=== PATIENT | female | born 1960 | race Caucasian/White ===

== ENCOUNTER 2019-12-01 11:59 | Outpatient (CLI) | payer MEDICARE, MEDICAID, SELFPAY ==
--- NOTE | 2019-12-04 01:00 | WPDPFTINT ---
PFT Interpretation PFT Interpretation: DOS: 12/01/2019 REQUESTING: Dr Anthony Burks REASON FOR TESTING: Dyspnea on exertion PULMONARY FUNCTION TESTS The patient gave excellent effort however was not able to maintain an exhalation of 6 seconds on 3 attempts, making the results non-reproducible. Lung volumes were not obtainable. Spirometry: FEV1 is 74%, mildly decreased. FVC is 65%, mildly decreased. FEV1% is normal. No significant change after bronchodilator. Lung volumes: Not obtainable. Diffusion: DLCO is mildly decreased at 65%. Flow volume loop: Not reproducible. IMPRESSION: Results limited by inability of the patient to perform maneuvers reliably. Decrease in FVC with normal FEV1% may represent a restrictive impairment, however lung volumes were not obtainable despite good effort on the patient's part. Ashley Og MD
== END 2019-12-01 12:00 | disposition home or self-care (01) ==
PROVIDERS: PCP Internal Medicine; Visit Provider Internal Medicine
DX: J06.9 Acute upper respiratory infection, unspecified (principal); R06.00 Dyspnea, unspecified
CPT/HCPCS: 94060; 94729

== ENCOUNTER 2022-03-25 15:35 | Outpatient (CLI) | payer MEDICARE, MEDICAID, SELFPAY ==
[2022-03-25 15:56] LABS: Appearance Urine Clear (Clear); Bilirubin Urine Negative (Negative); Blood Urine Negative (Negative); Color Urine Yellow (Yellow); Glucose Urine UA 2+ mg/dL (Negative); Ketones Urine Negative (Negative); Leukocyte Esterase Ur Trace LEU/UL (Negative); Nitrate Urine Negative (Negative); Protein Urine Negative (Negative); Specific Grav Ur 1.015 (1.001-1.035); Urobilinogen Urine 0.2 mg/dL (<2.0); pH Urine 5.5 (5.0-9.0)
[2022-03-25 16:04] LABS: Mucus Urine Rare /lpf; RBC Urine 0-2 /hpf (0-2); Squamous Epithelial Cell Urine Rare /hpf (Few); WBC Urine 0-3 /hpf
[2022-03-25 16:07] LABS: Add Urine Microscopic? YES
== END 2022-03-25 15:36 | disposition home or self-care (01) ==
LOC: ANHLAB 15:38
PROVIDERS: PCP Internal Medicine; Visit Provider Internal Medicine Nephrology
DX: R30.0 Dysuria (principal)
CPT/HCPCS: 81001

== ENCOUNTER 2022-06-28 09:40 | Emergency (ER) | payer MEDICARE, MEDICAID, SELFPAY ==
[2022-06-28 09:54] VITALS: BP 150/79; PULSE 87; RESP 20; TEMP 36.6; O2SAT 98
--- NOTE | 2022-06-28 10:34 | ED.GENADULT ---
HPI - General Adult General Chief complaint: Upper Respiratory Infection Stated complaint: sinus drainage,cough Source: patient Mode of arrival: ambulatory Limitations: no limitations History of Present Illness HPI narrative: Patient presents for evaluation of sinus symptoms for last week. Symptoms include sinus congestion, pressure, headache, mucopurulent discharge from the nares. She has also had a fever, chills, some mild nausea and cough. She went to [facility] last night. She had influenza and COVID tests which were both negative. She states she was told to take Flonase. She has used with no improvement in her symptoms. In fact she states her symptoms are worse. She has a history of recurrent bacterial sinusitis and states her current symptoms are consistent with that. Augmentin usually helps. She was exposed to COVID were she lives. She has had COVID in the past. She has been vaccinated for COVID. No additional complaints or concerns. Related Data Home Medications Medication Instructions Recorded Confirmed ascorbate calcium (vitamin C) 500 500 mg PO DAILY 01/02/22 mg tablet calcium carbonate 600 mg-vitamin cap PO 01/02/22 D3 12.5 mcg (500 unit) capsule (Calcium 600 with Vitamin D3) divalproex 125 mg tablet,delayed 125 mg PO Q8H 01/02/22 release (Depakote) fluticasone fur. 100 mcg-umeclid 1 inh inhalation DAILY 01/02/22 62.5 mcg-vilant 25 mcg inhalat.powder (Trelegy Ellipta) hydrochlorothiazide 25 mg tablet 25 mg PO BID 01/02/22 hydroxyzine HCl 25 mg tablet 25 mg PO BID PRN 01/02/22 levothyroxine 75 mcg capsule 75 mcg PO DAILY 01/02/22 lisinopril 20 mg tablet 20 mg PO BID 01/02/22 zinc gluconate 30 mg tablet 30 mg PO DAILY 01/02/22 Allergies Allergy/AdvReac Type Severity Reaction Status Date / Time carbamazepine Allergy Mild Unknown Verified 03/11/22 14:10 meperidine Allergy Mild Unknown Verified 03/11/22 14:10 prednisone Allergy Mild Unknown Verified 03/11/22 14:10 STEROIDS Allergy Mild Unknown Uncoded 08/19/21 15:14 Review of Systems Review of Systems: CONSTITUTIONAL: Reports fever and chills EYES: Denies visual changes, redness, or discharge. ENT: Reports sinus congestion, pressure, mucopurulent discharge from the nares. CARDIOVASCULAR: Denies chest pain, palpitations, or edema. RESPIRATORY: Reports cough and mild shortness of breath. GASTROINTESTINAL: Reports nausea. Denies abdominal pain, vomiting, or diarrhea. GENITOURINARY: Denies dysuria or hematuria. SKIN: Denies rash or itching. MUSCULOSKELETAL: Denies back pain, joint pain, or myalgia. NEUROLOGIC: Reports headache. Denies numbness, dizziness, or weakness. PSYCHIATRIC: Denies anxiety or depression. [facility] Past Medical History Medical History Anxiety Brain damage Brain ventricular shunt displacement COPD (chronic obstructive pulmonary disease) Depression Diabetes Hypertension Hypothyroidism Surgical History Surgical History H/O: hysterectomy 1991 History of appendectomy History of bilateral knee replacement S/P cholecystectomy Family History Family History Father Alcoholism Asthma Diabetes mellitus Hypertension Social History Social History Smoking status: Former smoker Tobacco type: cigarettes Alcohol intake: never Substance use: never Gender identity (if verbalized by the patient): Female Spiritual care concerns: No Exam Narrative: GENERAL: Well-appearing, well-nourished, and in no acute distress. HEAD: Normocephalic, atraumatic. EYES: PERRLA and EOMI. ENT: Mucopurulent discharge noted in the nares. Bilateral maxillary sinus tenderness. Mucous membranes moist. Oropharynx without tonsillar hypertrophy exudate or other le
== END 2022-06-28 10:42 | disposition home or self-care (01) ==
PROVIDERS: Emergency Provider Nurse Practitioner; PCP Internal Medicine
DX: J32.9 Chronic sinusitis, unspecified (principal); J44.9 Chronic obstructive pulmonary disease, unspecified; E11.9 Type 2 diabetes mellitus without complications; I10 Essential (primary) hypertension; E03.9 Hypothyroidism, unspecified; Z96.653 Presence of artificial knee joint, bilateral; Z87.891 Personal history of nicotine dependence; F41.9 Anxiety disorder, unspecified; Z86.16 Personal history of COVID-19
CPT/HCPCS: 99213; G0463

== ENCOUNTER 2022-08-22 13:39 | Emergency (ER) | payer MEDICARE, MEDICAID, SELFPAY ==
[2022-08-22 13:42] VITALS: BP 149/67; PULSE 127; RESP 20; TEMP 36.9; O2SAT 99
[2022-08-22 13:55] VITALS: BP 149/67; PULSE 127; RESP 20; TEMP 36.9; O2SAT 99
--- NOTE | 2022-08-22 13:56 | ED.URI ---
HPI - URI/Sore Throat General Chief Complaint: Upper Respiratory Infection Stated Complaint: sinus issues Time Seen by Provider: 08/22/22 13:56 History of Present Illness HPI Narrative: Patient just completed 10 days worth of cefdinir. Patient states she was intended to take the medication for 14 days but felt better and discontinued the medicine. Patient states 2 days ago she started again with sinus pressure and tenderness no fever no cough no shortness of breath and no chest pain. Patient is not taking anything [id number] for her symptoms. Related Data Home Medications Medication Instructions Recorded Confirmed ascorbate calcium (vitamin C) 500 500 mg PO DAILY 01/02/22 08/22/22 mg tablet calcium carbonate 600 mg-vitamin 1 cap PO DIRECTED 01/02/22 08/22/22 D3 12.5 mcg (500 unit) capsule (Calcium 600 with Vitamin D3) divalproex 125 mg tablet,delayed 125 mg PO Q8H 01/02/22 08/22/22 release (Depakote) fluticasone fur. 100 mcg-umeclid 1 inh inhalation DAILY 01/02/22 08/22/22 62.5 mcg-vilant 25 mcg inhalat.powder (Trelegy Ellipta) hydrochlorothiazide 25 mg tablet 25 mg PO BID 01/02/22 08/22/22 hydroxyzine HCl 25 mg tablet 25 mg PO BID PRN Itching 01/02/22 08/22/22 levothyroxine 75 mcg capsule 75 mcg PO DAILY 01/02/22 08/22/22 lisinopril 20 mg tablet 20 mg PO BID 01/02/22 08/22/22 zinc gluconate 30 mg tablet 30 mg PO DAILY 01/02/22 08/22/22 linaclotide 72 mcg capsule 72 mcg PO QAM 08/10/22 08/22/22 (Linzess) Allergies Allergy/AdvReac Type Severity Reaction Status Date / Time carbamazepine Allergy Mild Unknown Verified 08/22/22 13:55 meperidine Allergy Mild Unknown Verified 08/22/22 13:55 prednisone Allergy Mild Unknown Verified 08/22/22 13:55 STEROIDS Allergy Mild Unknown Uncoded 08/10/22 15:13 Review of Systems Review of Systems: CONSTITUTIONAL: Denies chills, or sweats. Reports fever and generalized body aches EYES: Denies visual changes, redness, or discharge. ENT: Denies otalgia. Reports nasal congestion runny nose and sore throat CARDIOVASCULAR: Denies chest pain, palpitations, or edema. RESPIRATORY: Denies dyspnea. Reports occasional cough GASTROINTESTINAL: Denies abdominal pain, nausea, vomiting, or diarrhea. GENITOURINARY: Denies dysuria or hematuria. SKIN: Denies rash or itching. MUSCULOSKELETAL: Denies back pain, joint pain, or myalgia. Reports generalized body aches NEUROLOGIC: Denies headache, numbness, or weakness. PSYCHIATRIC: Denies anxiety or depression. [facility] Past Medical History Medical History Anxiety Brain damage Brain ventricular shunt displacement COPD (chronic obstructive pulmonary disease) Depression Diabetes Hypertension Hypothyroidism Surgical History Surgical History H/O: hysterectomy 1991 History of appendectomy History of bilateral knee replacement S/P cholecystectomy Family History Family History Father Alcoholism Asthma Diabetes mellitus Hypertension Social History Social History (Updated 08/10/22 @ 15:17 by Sheyla Falk MA) Smoking status: Former smoker Tobacco type: cigarettes Alcohol intake: never Substance use: never Lack of Food: Never True Concerned About Future Housing: No Difficulty Paying Gas/Electric Bills: YES Difficulty Paying for Meds: No Currently Unemployed: No Education: High School Diploma/GED Gender identity (if verbalized by the patient): Female Spiritual care concerns: No Comments At time of signature, agree with nursing past medical, surgical, social and family history. There is no relevant family history pertinent to the presenting complaint Exam Narrative: The patient is a well-developed, well-nourished in no acute distress. SKIN: Skin is warm and dry without erythema, swelling or exudate. Ther
== END 2022-08-22 14:05 | disposition home or self-care (01) ==
PROVIDERS: Emergency Provider Nurse Practitioner Family; PCP Internal Medicine
DX: J32.9 Chronic sinusitis, unspecified (principal); Z87.891 Personal history of nicotine dependence; J44.9 Chronic obstructive pulmonary disease, unspecified; E11.9 Type 2 diabetes mellitus without complications; I10 Essential (primary) hypertension; E03.9 Hypothyroidism, unspecified; F41.9 Anxiety disorder, unspecified; Z96.653 Presence of artificial knee joint, bilateral
CPT/HCPCS: 99213; G0463

== ENCOUNTER 2023-05-31 15:56 | Emergency (ER) | payer MEDICARE, MEDICAID, SELFPAY ==
[2023-05-31 16:24] VITALS: BP 143/72; PULSE 98; RESP 16; TEMP 36.3; O2SAT 99
--- NOTE | 2023-05-31 17:05 | ED.FEMALEGU ---
HPI - Female Genitourinary General Chief complaint: Urogenital-Female Stated complaint: Urinary Problem/Vaginal Issue Time Seen by Provider: 05/31/23 17:05 Source: patient Mode of arrival: ambulatory Limitations: no limitations History of Present Illness HPI Narrative: 63-year-old female presents with complaint of urinary frequency, urgency, burning for the past 2-3 days. Also reports rash under abdomen and to groin that is itchy and irritated. Patient reports history of yeast infections. Was supposed to be applying nystatin powder twice a day every day to prevent yeast infection but had not been using it. Over the last several days has tried nystatin cream but is now out of this medication. Afebrile. All systems reviewed and negative except as noted above. Related Data Home Medications Medication Instructions Recorded Confirmed ascorbate calcium (vitamin C) 500 500 mg PO DAILY 01/02/22 05/31/23 mg tablet calcium carbonate 600 mg-vitamin 1 cap PO DIRECTED 01/02/22 05/31/23 D3 12.5 mcg (500 unit) capsule (Calcium 600 with Vitamin D3) divalproex 125 mg tablet,delayed 125 mg PO Q8H 01/02/22 05/31/23 release (Depakote) fluticasone fur. 100 mcg-umeclid 1 inh inhalation DAILY 01/02/22 05/31/23 62.5 mcg-vilant 25 mcg inhalat.powder (Trelegy Ellipta) hydrochlorothiazide 25 mg tablet 25 mg PO BID 01/02/22 05/31/23 hydroxyzine HCl 25 mg tablet 25 mg PO BID PRN Itching 01/02/22 05/31/23 levothyroxine 75 mcg capsule 75 mcg PO DAILY 01/02/22 05/31/23 lisinopril 20 mg tablet 20 mg PO BID 01/02/22 05/31/23 zinc gluconate 30 mg tablet 30 mg PO DAILY 01/02/22 05/31/23 linaclotide 72 mcg capsule 72 mcg PO QAM 08/10/22 05/31/23 (Linzess) atorvastatin 20 mg tablet 20 mg PO DAILY 05/31/23 05/31/23 citalopram 20 mg tablet 20 mg PO DAILY 05/31/23 05/31/23 trimethoprim 100 mg tablet mg 05/31/23 Allergies Allergy/AdvReac Type Severity Reaction Status Date / Time carbamazepine Allergy Mild Unknown Verified 05/31/23 16:24 meperidine Allergy Mild Unknown Verified 05/31/23 16:24 prednisone Allergy Mild Unknown Verified 05/31/23 16:24 STEROIDS Allergy Mild Unknown Uncoded 05/31/23 16:24 Review of Systems Review of Systems: CONSTITUTIONAL: Denies fever, chills, or sweats. EYES: Denies visual changes, redness, or discharge. ENT: Denies rhinorrhea, congestion, sore throat, or otalgia. CARDIOVASCULAR: Denies chest pain, palpitations, or edema. RESPIRATORY: Denies cough or dyspnea. GASTROINTESTINAL: Denies abdominal pain, nausea, vomiting, or diarrhea. GENITOURINARY: Reports dysuria, frequency, urgency. Denies hematuria. SKIN: Reports rash and itching to groin and abdomen. MUSCULOSKELETAL: Denies back pain, joint pain, or myalgia. NEUROLOGIC: Denies headache, numbness, or weakness. PSYCHIATRIC: Denies anxiety or depression. All other systems reviewed are negative, except as documented in HPI. [facility] Past Medical History Medical History (Updated 05/31/23 @ 17:13 by Awilda Saeed NP) Anxiety Bipolar 1 disorder Brain damage Brain ventricular shunt displacement COPD (chronic obstructive pulmonary disease) Depression Diabetes Hypertension Hypothyroidism Seizures Sleep apnea Surgical History Surgical History (Updated 05/11/23 @ 13:37 by Natalya Patel CMA) H/O: hysterectomy 1991 History of appendectomy History of brain shunt History of right knee joint replacement S/P cholecystectomy Family History Family History Father Alcoholism Asthma Diabetes mellitus Hypertension Social History Social History (Updated 05/11/23 @ 13:32 by Natalya Patel CMA) Smoking status: Former smoker Tobacco type: cigarettes Alcohol intake: never Substance use: never Lack of Transportation: No Lack of Food: Never True Concerned About Future Housing: No Difficulty Paying Gas/Electric Bills: YES Difficulty Paying for Meds: YE
== END 2023-05-31 17:22 | disposition home or self-care (01) ==
PROVIDERS: Emergency Provider Nurse Practitioner Family; PCP Internal Medicine
DX: B37.2 Candidiasis of skin and nail (principal); R35.0 Frequency of micturition; E11.9 Type 2 diabetes mellitus without complications; I10 Essential (primary) hypertension; J44.9 Chronic obstructive pulmonary disease, unspecified; E03.9 Hypothyroidism, unspecified; Z79.899 Other long term (current) drug therapy; Z87.891 Personal history of nicotine dependence
CPT/HCPCS: 81003; 87086; 87088; 99213; G0463

== ENCOUNTER 2023-06-01 12:04 | Outpatient (CLI) | payer MEDICARE, MEDICAID, SELFPAY | END 2023-06-01 12:05 | disposition home or self-care (01) | LOC: ANHBWCAUD 12:05 | PROVIDERS: PCP Internal Medicine; Visit Provider Internal Medicine | DX: H90.3 Sensorineural hearing loss, bilateral (principal) | CPT/HCPCS: 92557; 92567 ==

== ENCOUNTER 2023-06-22 12:54 | Emergency (ER) | payer MEDICARE, MEDICAID, SELFPAY ==
[2023-06-22 13:04] VITALS: BP 141/64; PULSE 77; RESP 20; TEMP 36.2; O2SAT 97
--- NOTE | 2023-06-22 13:53 | ED.FEMALEGU ---
HPI - Female Genitourinary General Chief complaint: Urogenital-Female Stated complaint: Urinary Problem Time Seen by Provider: 06/22/23 13:53 Source: patient, RN notes reviewed and old records reviewed Mode of arrival: wheelchair Limitations: no limitations History of Present Illness HPI Narrative: 63-year-old female who presents [facility] complaints of urinary problems which includes supra pubic pressure, bilateral flank pain, urinry urgency, frequency and burning with some white vaginal discharge for the past 3 days, Patient reports no fevers, no nausea or vomiting or any visible blood with urination, deies any concern for STD exposure. Patient reports that she has taken some Tylenol for her discomfort.Patient reports history of previous UTI's. MD elicited complaint: UTI and vaginal discharge Pertinent past history: recurrent UTIs and other (yeast infection) Onset (ago): day(s) (3) Location of symptoms: suprapubic, urethra, vaginal and flank Female Urogenital Radiation: Suprapubic, L Flank and R Flank Severity scale (1-10): 8 Quality of pain: burning and other (pressure) Vaginal discharge: white Vaginal bleeding: none Treatment prior to arrival: acetaminophen Related Data Home Medications Medication Instructions Recorded Confirmed ascorbate calcium (vitamin C) 500 500 mg PO DAILY 01/02/22 06/22/23 mg tablet calcium carbonate 600 mg-vitamin 1 cap PO DIRECTED 01/02/22 06/22/23 D3 12.5 mcg (500 unit) capsule (Calcium 600 with Vitamin D3) divalproex 125 mg tablet,delayed 125 mg PO Q8H 01/02/22 06/22/23 release (Depakote) hydrochlorothiazide 25 mg tablet 25 mg PO BID 01/02/22 06/22/23 hydroxyzine HCl 25 mg tablet 25 mg PO BID PRN Itching 01/02/22 06/22/23 levothyroxine 75 mcg capsule 75 mcg PO DAILY 01/02/22 06/22/23 lisinopril 20 mg tablet 20 mg PO BID 01/02/22 06/22/23 linaclotide 72 mcg capsule 72 mcg PO QAM 08/10/22 06/22/23 (Linzess) atorvastatin 20 mg tablet 20 mg PO DAILY 05/31/23 06/22/23 citalopram 20 mg tablet 20 mg PO DAILY 05/31/23 06/22/23 trimethoprim 100 mg tablet 100 mg PO DAILY 05/31/23 06/22/23 alendronate 70 mg tablet 70 mg PO DAILY 06/22/23 06/22/23 furosemide 40 mg tablet 40 mg PO DAILY 06/22/23 06/22/23 Allergies Allergy/AdvReac Type Severity Reaction Status Date / Time carbamazepine Allergy Mild Unknown Verified 06/22/23 13:23 meperidine Allergy Mild Unknown Verified 06/22/23 13:23 prednisone Allergy Mild Unknown Verified 06/22/23 13:23 Review of Systems Review of Systems: CONSTITUTIONAL: Denies fever, chills, or sweats. CARDIOVASCULAR: Denies chest pain, palpitations, or edema. RESPIRATORY: Denies cough or dyspnea. GASTROINTESTINAL:Reports suprapubic abdominal pain, nausea, vomiting, or diarrhea. GENITOURINARY: Reports dysuria, frequency, urgency. Reports flank pain no visiblehematuria. SKIN: Denies rash or itching MUSCULOSKELETAL: Denies back pain or myalgia. Reports blateral CVA tenderness NEUROLOGIC: Denies headache All systems reviewed & are unremarkable except as noted in HPI and below PMFSH Past Medical History Medical History Anxiety Bipolar 1 disorder Brain damage Brain ventricular shunt displacement COPD (chronic obstructive pulmonary disease) Depression Diabetes Hypertension Hypothyroidism Seizures Sleep apnea Surgical History Surgical History H/O: hysterectomy 1991 History of appendectomy History of brain shunt History of right knee joint replacement S/P cholecystectomy Family History Family History Father Alcoholism Asthma Diabetes mellitus Hypertension Social History Social History (Updated 06/24/23 @ 11:19 by Kathi Guerrero NP) Smoking status: Former smoker Tobacco type: cigarettes Alcohol intake: never Substance use: never Lack of Transportation: No
== END 2023-06-22 14:04 | disposition home or self-care (01) ==
PROVIDERS: Emergency Provider Registered Nurse; PCP Internal Medicine
DX: N39.0 Urinary tract infection, site not specified (principal); B96.20 Unspecified Escherichia coli [E. coli] as the cause of diseases classified elsewhere; N89.8 Other specified noninflammatory disorders of vagina; Z87.891 Personal history of nicotine dependence; J44.9 Chronic obstructive pulmonary disease, unspecified; E11.9 Type 2 diabetes mellitus without complications; I10 Essential (primary) hypertension; E03.9 Hypothyroidism, unspecified; F41.9 Anxiety disorder, unspecified; F31.9 Bipolar disorder, unspecified; G40.909 Epilepsy, unspecified, not intractable, without status epilepticus; Z98.2 Presence of cerebrospinal fluid drainage device; Z96.651 Presence of right artificial knee joint
CPT/HCPCS: 81003; 87077; 87086; 87186; 99213; G0463

== ENCOUNTER 2023-07-13 18:31 | Emergency (ER) | payer MEDICARE, MEDICAID, SELFPAY ==
--- NOTE | 2023-07-13 18:53 | ED.FEMALEGU ---
HPI - Female Genitourinary General Chief complaint: Urogenital-Female Stated complaint: Urinary Problem Time Seen by Provider: 07/13/23 18:53 Source: patient and RN notes reviewed Mode of arrival: wheelchair Limitations: no limitations History of Present Illness HPI Narrative: 63 year old female presents to express care with complaints of urinary burning, back pain, perineal and bladder discomfort for the past 1 week.Patient reports urinary frequency with few chills but no known fevers. Patient reports that she wears depends and did have a small loose stool and is concerned for possible contamination to urinary tract due to that. Patient admits to increase soda intake lately also and does have history of UTI's with similar symptoms. Patient denies any nausea or vomiting, states no vagial discharge. MD elicited complaint: UTI Pertinent past history: recurrent UTIs Onset (ago): week(s) (1) Location of symptoms: low back and other (perineal and bladder pressure) Severity scale (1-10): 8 Quality of pain: burning and aching Consistency: progressively worsening Vaginal discharge: none Urinary symptoms: Dysuria and Frequency Treatment prior to arrival: none Related Data Home Medications Medication Instructions Recorded Confirmed ascorbate calcium (vitamin C) 500 500 mg PO DAILY 01/02/22 07/13/23 mg tablet calcium carbonate 600 mg-vitamin 1 cap PO DIRECTED 01/02/22 07/13/23 D3 12.5 mcg (500 unit) capsule (Calcium 600 with Vitamin D3) divalproex 125 mg tablet,delayed 125 mg PO Q8H 01/02/22 07/13/23 release (Depakote) hydrochlorothiazide 25 mg tablet 25 mg PO BID 01/02/22 07/13/23 hydroxyzine HCl 25 mg tablet 25 mg PO BID PRN Itching 01/02/22 07/13/23 levothyroxine 75 mcg capsule 75 mcg PO DAILY 01/02/22 07/13/23 lisinopril 20 mg tablet 20 mg PO BID 01/02/22 07/13/23 linaclotide 72 mcg capsule 72 mcg PO QAM 08/10/22 07/13/23 (Linzess) atorvastatin 20 mg tablet 20 mg PO DAILY 05/31/23 07/13/23 citalopram 20 mg tablet 20 mg PO DAILY 05/31/23 07/13/23 trimethoprim 100 mg tablet 100 mg PO DAILY 05/31/23 07/13/23 alendronate 70 mg tablet 70 mg PO DAILY 06/22/23 07/13/23 furosemide 40 mg tablet 40 mg PO DAILY 06/22/23 07/13/23 Allergies Allergy/AdvReac Type Severity Reaction Status Date / Time carbamazepine Allergy Mild Unknown Verified 07/13/23 19:11 meperidine Allergy Mild Unknown Verified 07/13/23 19:11 prednisone Allergy Mild Unknown Verified 07/13/23 19:11 Review of Systems Review of Systems: CONSTITUTIONAL: Denies any known fever,reports some chills, no sweats. CARDIOVASCULAR: Denies chest pain, palpitations, or edema. RESPIRATORY: Denies cough or dyspnea. GASTROINTESTINAL: Denies abdominal pain, nausea, vomiting, or diarrhea. GENITOURINARY: Reports dysuria, frequency, urgency. Denies flank pain or hematuria.reports perineal and bladder pressure and burning SKIN: Denies rash or itching. MUSCULOSKELETAL:reports low back pain or myalgia. Denies CVA tenderness NEUROLOGIC: Denies headache All systems reviewed & are unremarkable except as noted in HPI and below PMFSH Past Medical History Medical History Anxiety Bipolar 1 disorder Brain damage Brain ventricular shunt displacement COPD (chronic obstructive pulmonary disease) Depression Diabetes Hypertension Hypothyroidism Seizures Sleep apnea Surgical History Surgical History H/O: hysterectomy 1991 History of appendectomy History of brain shunt History of right knee joint replacement S/P cholecystectomy Family History Family History Father Alcoholism Asthma Diabetes mellitus Hypertension Social History Social History (Updated 06/24/23 @ 11:19 by Kathi Guerrero NP) Smoking status: Former smoker Tobacco type: cigarettes Alcohol intake: never Substance use: almita
[2023-07-13 18:55] VITALS: BP 133/61; PULSE 83; RESP 18; TEMP 36.5; O2SAT 98
== END 2023-07-13 19:30 | disposition home or self-care (01) ==
PROVIDERS: Emergency Provider Registered Nurse; PCP Internal Medicine
DX: R30.0 Dysuria (principal); M54.9 Dorsalgia, unspecified; E11.9 Type 2 diabetes mellitus without complications; I10 Essential (primary) hypertension; Z96.651 Presence of right artificial knee joint
CPT/HCPCS: 81003; 87077; 87086; 87186; 99213; G0463

== ENCOUNTER 2023-08-03 15:52 | Emergency (ER) | payer MEDICARE, MEDICAID, SELFPAY ==
[2023-08-03 16:02] VITALS: BP 138/61; PULSE 88; RESP 20; TEMP 36.4; O2SAT 97
--- NOTE | 2023-08-03 16:37 | ED.URI ---
HPI - URI/Sore Throat General Chief Complaint: Upper Respiratory Infection Stated Complaint: sinus issues Time Seen by Provider: 08/03/23 16:30 Source: patient, RN notes reviewed and old records reviewed Mode of arrival: ambulatory Limitations: no limitations History of Present Illness HPI Narrative: 63 year old female who presents to [facility] with complaints of headache,sinus congestion and drainage,cough with yellow mucous, bilateral ears feel clogged with pressure for the past week duration. Patient reports that she has taken some Sudafed and Tylenol for her symptoms without improvement. Patient reports that she has not had any fevers but has had some chills.Patient reports fatigue. MD elicited complaint: cough (yellow phlegm), rhinorrhea, nasal congestion and sinus pain Onset (ago): week(s) (1) Consistency: progressively worsening Pain scale (0-10): 9 Description of mucous: yellow Treatments prior to arrival: acetaminophen and other (sudafed, inhaler and nasal spray) Related Data Home Medications Medication Instructions Recorded Confirmed ascorbate calcium (vitamin C) 500 500 mg PO DAILY 01/02/22 08/03/23 mg tablet calcium carbonate 600 mg-vitamin 1 cap PO DIRECTED 01/02/22 08/03/23 D3 12.5 mcg (500 unit) capsule (Calcium 600 with Vitamin D3) hydrochlorothiazide 25 mg tablet 25 mg PO BID 01/02/22 08/03/23 hydroxyzine HCl 25 mg tablet 25 mg PO BID PRN Itching 01/02/22 08/03/23 lisinopril 20 mg tablet 20 mg PO BID 01/02/22 08/03/23 linaclotide 72 mcg capsule 72 mcg PO QAM 08/10/22 08/03/23 (Linzess) atorvastatin 20 mg tablet 20 mg PO DAILY 05/31/23 08/03/23 citalopram 20 mg tablet 20 mg PO DAILY 05/31/23 08/03/23 trimethoprim 100 mg tablet 100 mg PO DAILY 05/31/23 08/03/23 alendronate 70 mg tablet 70 mg PO DAILY 06/22/23 08/03/23 furosemide 40 mg tablet 40 mg PO BID 06/22/23 08/03/23 amlodipine 5 mg tablet 5 mg PO DAILY 08/03/23 08/03/23 buspirone 15 mg tablet 15 mg PO DAILY 08/03/23 08/03/23 divalproex 500 mg tablet,delayed 500 mg PO QID 08/03/23 08/03/23 release famotidine 40 mg tablet 40 mg PO DAILY 08/03/23 08/03/23 fluticasone fur. 200 mcg-umeclid 1 inh inhalation DAILY 08/03/23 08/03/23 62.5 mcg-vilant 25 mcg inhalat.powder (Trelegy Ellipta) fluticasone propionate 50 1 spray intranasal BID 08/03/23 08/03/23 mcg/actuation nasal spray,suspension insulin glargine 100 unit/mL (3 16 unit subcut QPM 08/03/23 08/03/23 mL) subcutaneous pen (Lantus Solostar U-100 Insulin) insulin lispro 100 unit/mL 28 unit subcut TID 08/03/23 08/03/23 subcutaneous pen (Humalog KwikPen (U-100) Insulin) ipratropium bromide 21 mcg (0.03 2 spray intranasal DAILY 08/03/23 08/03/23 %) nasal spray levothyroxine 150 mcg tablet 150 mcg PO DAILY 08/03/23 08/03/23 risperidone 0.5 mg tablet 0.5 mg PO DAILY 08/03/23 08/03/23 tamsulosin 0.4 mg capsule 0.4 mg PO BID 08/03/23 08/03/23 Allergies Allergy/AdvReac Type Severity Reaction Status Date / Time carbamazepine Allergy Mild Unknown Verified 08/03/23 15:56 meperidine Allergy Mild Unknown Verified 08/03/23 15:56 prednisone Allergy Mild Unknown Verified 08/03/23 15:56 Review of Systems Review of Systems: CONSTITUTIONAL:Reports malaise, chills, no sweats, no known fever. EYES: Denies visual changes, redness, or discharge. ENT: Reports rhinorrhea, congestion, sinus pain, bilateral ear pressure with feeling of ears being clogged,no sore throat. CARDIOVASCULAR: Denies chest pain, palpitations, or edema. RESPIRATORY: Reports productive cough.? Denies dyspnea. GASTROINTESTINAL: Denies abdominal pain, nausea, vomiting, diarrhea SKIN: Denies rash or itching. MUSCULOSKELETAL: Denies myalgia. NEUROLOGIC: positive for frontal headache. All systems reviewed & are unremarkable except as noted in HPI and below PMFSH Past Medical History Medical History Anxiety Bipolar 1 disorder Brain damage Torsten
== END 2023-08-03 17:00 | disposition home or self-care (01) ==
PROVIDERS: Emergency Provider Registered Nurse; PCP Internal Medicine
DX: J32.9 Chronic sinusitis, unspecified (principal); Z20.822 Contact with and (suspected) exposure to COVID-19; Z87.891 Personal history of nicotine dependence; J44.9 Chronic obstructive pulmonary disease, unspecified; Z79.4 Long term (current) use of insulin; E11.9 Type 2 diabetes mellitus without complications; I10 Essential (primary) hypertension; E03.9 Hypothyroidism, unspecified; F41.9 Anxiety disorder, unspecified; F31.9 Bipolar disorder, unspecified; Z96.651 Presence of right artificial knee joint; Z98.2 Presence of cerebrospinal fluid drainage device
CPT/HCPCS: 87426; 87804; 99213; G0463

== ENCOUNTER 2023-10-18 18:45 | Emergency (ER) | payer MEDICARE, MEDICAID, SELFPAY ==
[2023-10-18 18:52] VITALS: BP 140/72; PULSE 85; RESP 20; TEMP 36.2; O2SAT 98
[2023-10-18 18:59] VITALS: BP 140/72; PULSE 85; RESP 20; TEMP 36.2; O2SAT 98
--- NOTE | 2023-10-18 18:59 | ED.FEMALEGU ---
HPI - Female Genitourinary General Chief complaint: Urogenital-Female Stated complaint: Urinary Problem Time Seen by Provider: 10/18/23 19:01 Source: patient, RN notes reviewed and old records reviewed Mode of arrival: wheelchair Limitations: no limitations History of Present Illness HPI Narrative: 63 year old female who presents to express care with complaints of urinary burning and white vaginal discharge for 2 week interval. Patient reports that she needs a stronger antibiotic that what her doctor prescribed for her on the 4th of this month, isn't helping. Patient states history of urinary tract infections, patient drinking diet Pepsi on arrival.Patient was also prescribed Terconazole for her vaginal discharge at that time. Patient states that she needs her test results from her doctor's office and wants us to retrieve them.Informed patient that we don't have access to those test results she must call her doctor. MD elicited complaint: UTI Pertinent past history: recurrent UTIs and diabetes Onset (ago): week(s) (2) Location of symptoms: urethra and vaginal Severity scale (1-10): 4 Quality of pain: burning Vaginal discharge: white Urinary symptoms: Dysuria Treatment prior to arrival: other (presently on Macrobid and terconazole) Related Data Home Medications Medication Instructions Recorded Confirmed ascorbate calcium (vitamin C) 500 500 mg PO DAILY 01/02/22 10/05/23 mg tablet calcium carbonate 600 mg-vitamin 1 cap PO DIRECTED 01/02/22 10/05/23 D3 12.5 mcg (500 unit) capsule (Calcium 600 with Vitamin D3) hydrochlorothiazide 25 mg tablet 25 mg PO BID 01/02/22 10/05/23 hydroxyzine HCl 25 mg tablet 25 mg PO BID PRN Itching 01/02/22 10/05/23 lisinopril 20 mg tablet 20 mg PO BID 01/02/22 10/05/23 linaclotide 72 mcg capsule 72 mcg PO QAM 08/10/22 10/05/23 (Linzess) atorvastatin 20 mg tablet 20 mg PO DAILY 05/31/23 10/05/23 citalopram 20 mg tablet 20 mg PO DAILY 05/31/23 10/05/23 trimethoprim 100 mg tablet 100 mg PO DAILY 05/31/23 10/05/23 alendronate 70 mg tablet 70 mg PO DAILY 06/22/23 10/05/23 amlodipine 5 mg tablet 5 mg PO DAILY 08/03/23 10/05/23 buspirone 15 mg tablet 15 mg PO DAILY 08/03/23 10/05/23 divalproex 500 mg tablet,delayed 500 mg PO QID 08/03/23 10/05/23 release famotidine 40 mg tablet 40 mg PO DAILY 08/03/23 10/05/23 fluticasone fur. 200 mcg-umeclid 1 inh inhalation DAILY 08/03/23 10/05/23 62.5 mcg-vilant 25 mcg inhalat.powder (Trelegy Ellipta) fluticasone propionate 50 1 spray intranasal BID 08/03/23 10/05/23 mcg/actuation nasal spray,suspension insulin glargine 100 unit/mL (3 16 unit subcut QPM 08/03/23 10/05/23 mL) subcutaneous pen (Lantus Solostar U-100 Insulin) insulin lispro 100 unit/mL 28 unit subcut TID 08/03/23 10/05/23 subcutaneous pen (Humalog KwikPen (U-100) Insulin) ipratropium bromide 21 mcg (0.03 2 spray intranasal DAILY 08/03/23 10/05/23 %) nasal spray levothyroxine 150 mcg tablet 150 mcg PO DAILY 08/03/23 10/05/23 risperidone 0.5 mg tablet 0.5 mg PO DAILY 08/03/23 10/05/23 tamsulosin 0.4 mg capsule 0.4 mg PO BID 08/03/23 10/05/23 Allergies Allergy/AdvReac Type Severity Reaction Status Date / Time carbamazepine Allergy Mild Unknown Verified 10/05/23 13:28 meperidine Allergy Mild Unknown Verified 10/05/23 13:28 prednisone Allergy Mild Unknown Verified 10/05/23 13:28 Review of Systems Review of Systems: CONSTITUTIONAL: Denies fever, chills, or sweats. CARDIOVASCULAR: Denies chest pain, palpitations, or edema. RESPIRATORY: Denies cough or dyspnea. GASTROINTESTINAL: Denies abdominal pain, nausea, vomiting, or diarrhea. GENITOURINARY: Reports dysuria, no frequency, urgency. Denies flank pain or hematuria.reports white vaginal discharge SKIN: Denies rash or itching. MUSCULOSKELETAL: Denies back pain or myalgia. Denies CVA tenderness NEUROLOGIC: Denies headache All systems reviewed & are unremarkable except as noted in HPI and below PMFSH Past Medic
== END 2023-10-18 19:53 | disposition home or self-care (01) ==
PROVIDERS: Emergency Provider Registered Nurse; PCP Internal Medicine
DX: R30.0 Dysuria (principal); N89.8 Other specified noninflammatory disorders of vagina; Z87.891 Personal history of nicotine dependence; I12.9 Hypertensive chronic kidney disease with stage 1 through stage 4 chronic kidney disease, or unspecified chronic kidney disease; E11.22 Type 2 diabetes mellitus with diabetic chronic kidney disease; N18.4 Chronic kidney disease, stage 4 (severe); Z79.4 Long term (current) use of insulin; J44.9 Chronic obstructive pulmonary disease, unspecified; E03.9 Hypothyroidism, unspecified; F41.9 Anxiety disorder, unspecified; F31.9 Bipolar disorder, unspecified; Z96.651 Presence of right artificial knee joint; Z98.2 Presence of cerebrospinal fluid drainage device
CPT/HCPCS: 81003; 99212; G0463

== ENCOUNTER 2023-11-03 15:42 | Emergency (ER) | payer MEDICARE, MEDICAID, SELFPAY ==
[2023-11-03 15:55] VITALS: BP 134/116; PULSE 84; RESP 16; TEMP 36.1; O2SAT 100
--- NOTE | 2023-11-03 16:45 | ED.URI ---
HPI - URI/Sore Throat General Chief Complaint: Upper Respiratory Infection Stated Complaint: Poss urine infection/sinus issues Time Seen by Provider: 11/03/23 16:38 Source: patient Mode of arrival: ambulatory Limitations: no limitations History of Present Illness HPI Narrative: 63-year-old female with a history of CKD, dm, and UTIs presented for complaint of burning with urination for about 2 days. She states this started after having a stool accident in the night after taking a laxative. She states she is concerned for E coli. Patient takes trimethoprim daily for prophylaxis. Per notes, patient was also prescribed an antibiotic on the 4th of this month for UTI. Additionally patient reports sinus congestion and nasal drainage over the past 3 days. She took Benadryl. She denies shortness of breath, wheezing, nausea vomiting diarrhea fevers or chills. Denies known sick contacts, states she has been sleeping with a fan on. Related Data Home Medications Medication Instructions Recorded Confirmed ascorbate calcium (vitamin C) 500 500 mg PO DAILY 01/02/22 11/03/23 mg tablet calcium carbonate 600 mg-vitamin 1 cap PO DIRECTED 01/02/22 11/03/23 D3 12.5 mcg (500 unit) capsule (Calcium 600 with Vitamin D3) hydrochlorothiazide 25 mg tablet 25 mg PO BID 01/02/22 11/03/23 hydroxyzine HCl 25 mg tablet 25 mg PO BID PRN Itching 01/02/22 11/03/23 lisinopril 20 mg tablet 20 mg PO BID 01/02/22 11/03/23 linaclotide 72 mcg capsule 72 mcg PO QAM 08/10/22 11/03/23 (Linzess) atorvastatin 20 mg tablet 20 mg PO DAILY 05/31/23 11/03/23 citalopram 20 mg tablet 20 mg PO DAILY 05/31/23 11/03/23 trimethoprim 100 mg tablet 100 mg PO DAILY 05/31/23 11/03/23 alendronate 70 mg tablet 70 mg PO DAILY 06/22/23 11/03/23 amlodipine 5 mg tablet 5 mg PO DAILY 08/03/23 11/03/23 buspirone 15 mg tablet 15 mg PO DAILY 08/03/23 11/03/23 divalproex 500 mg tablet,delayed 500 mg PO QID 08/03/23 11/03/23 release famotidine 40 mg tablet 40 mg PO DAILY 08/03/23 11/03/23 fluticasone fur. 200 mcg-umeclid 1 inh inhalation DAILY 08/03/23 11/03/23 62.5 mcg-vilant 25 mcg inhalat.powder (Trelegy Ellipta) fluticasone propionate 50 1 spray intranasal BID 08/03/23 11/03/23 mcg/actuation nasal spray,suspension insulin glargine 100 unit/mL (3 16 unit subcut QPM 08/03/23 11/03/23 mL) subcutaneous pen (Lantus Solostar U-100 Insulin) insulin lispro 100 unit/mL 28 unit subcut TID 08/03/23 11/03/23 subcutaneous pen (Humalog KwikPen (U-100) Insulin) ipratropium bromide 21 mcg (0.03 2 spray intranasal DAILY 08/03/23 11/03/23 %) nasal spray levothyroxine 150 mcg tablet 150 mcg PO DAILY 08/03/23 11/03/23 risperidone 0.5 mg tablet 0.5 mg PO DAILY 08/03/23 11/03/23 tamsulosin 0.4 mg capsule 0.4 mg PO BID 08/03/23 11/03/23 Allergies Allergy/AdvReac Type Severity Reaction Status Date / Time carbamazepine Allergy Mild Unknown Verified 11/03/23 16:31 meperidine Allergy Mild Unknown Verified 11/03/23 16:31 prednisone Allergy Mild Unknown Verified 11/03/23 16:31 Review of Systems Review of Systems: CONSTITUTIONAL: Reports fatigue Denies fever, chills EYES: Denies visual changes, redness, or discharge. ENT: Reports rhinorrhea, congestion, denies sore throat, or otalgia. CARDIOVASCULAR: Denies chest pain, palpitations, or edema. RESPIRATORY: Denies cough or dyspnea. GASTROINTESTINAL: Denies abdominal pain, nausea, vomiting, or diarrhea. GENITOURINARY: Reports dysuria denies hematuria or flank pain. SKIN: Denies rash, itching, or wounds. MUSCULOSKELETAL: Denies back pain, joint pain, or myalgia. NEUROLOGIC: Denies headache, numbness, tingling, or weakness. All systems reviewed & are unremarkable except as noted in HPI and below PMFSH Past Medical History Medical History Anxiety Bipolar 1 disorder Brain damage Brain ventricular shunt displacement Chronic kidney disease, stage IV (severe) COPD (ch
== END 2023-11-03 17:27 | disposition home or self-care (01) ==
PROVIDERS: Emergency Provider Nurse Practitioner Family; PCP Internal Medicine
DX: N39.0 Urinary tract infection, site not specified (principal); B96.20 Unspecified Escherichia coli [E. coli] as the cause of diseases classified elsewhere; J06.9 Acute upper respiratory infection, unspecified; Z20.822 Contact with and (suspected) exposure to COVID-19; Z87.891 Personal history of nicotine dependence; I12.9 Hypertensive chronic kidney disease with stage 1 through stage 4 chronic kidney disease, or unspecified chronic kidney disease; E11.22 Type 2 diabetes mellitus with diabetic chronic kidney disease; N18.4 Chronic kidney disease, stage 4 (severe); Z79.4 Long term (current) use of insulin; F41.9 Anxiety disorder, unspecified; F31.9 Bipolar disorder, unspecified; E03.9 Hypothyroidism, unspecified; Z98.2 Presence of cerebrospinal fluid drainage device; Z96.651 Presence of right artificial knee joint
CPT/HCPCS: 81003; 87077; 87086; 87088; 87186; 87426; 87804; 99213; G0463

== ENCOUNTER 2023-11-23 12:26 | Emergency (ER) | payer MEDICARE, MEDICAID, SELFPAY ==
--- NOTE | 2023-11-23 12:34 | ED.GENADULT ---
HPI - General Adult General Chief complaint: Urogenital-Female Stated complaint: Burning Urination/chills/nausea Time Seen by Provider: 11/23/23 12:34 Source: patient, RN notes reviewed and old records reviewed Mode of arrival: ambulatory Limitations: no limitations History of Present Illness HPI narrative: 63-year-old female to [facility] Care for complaint yellow to white vaginal discharge, urinary frequency, urgency for 3 days. Patient endorses recent treatment with multiple antibiotics. Patient states she has an appointment tomorrow with her urologist. Patient denies abdominal pain, vomiting, bowel changes, fever. Patient able to tolerate fluids by mouth. Respirations even and nonlabored. Related Data Home Medications Medication Instructions Recorded Confirmed ascorbate calcium (vitamin C) 500 500 mg PO DAILY 01/02/22 11/23/23 mg tablet calcium carbonate 600 mg-vitamin 1 cap PO DIRECTED 01/02/22 11/23/23 D3 12.5 mcg (500 unit) capsule (Calcium 600 with Vitamin D3) hydrochlorothiazide 25 mg tablet 25 mg PO BID 01/02/22 11/23/23 hydroxyzine HCl 25 mg tablet 25 mg PO BID PRN Itching 01/02/22 11/23/23 lisinopril 20 mg tablet 20 mg PO BID 01/02/22 11/23/23 linaclotide 72 mcg capsule 72 mcg PO QAM 08/10/22 11/23/23 (Linzess) atorvastatin 20 mg tablet 20 mg PO DAILY 05/31/23 11/23/23 citalopram 20 mg tablet 20 mg PO DAILY 05/31/23 11/23/23 trimethoprim 100 mg tablet 100 mg PO DAILY 05/31/23 11/23/23 alendronate 70 mg tablet 70 mg PO DAILY 06/22/23 11/23/23 amlodipine 5 mg tablet 5 mg PO DAILY 08/03/23 11/23/23 buspirone 15 mg tablet 15 mg PO DAILY 08/03/23 11/23/23 divalproex 500 mg tablet,delayed 500 mg PO QID 08/03/23 11/23/23 release famotidine 40 mg tablet 40 mg PO DAILY 08/03/23 11/23/23 fluticasone fur. 200 mcg-umeclid 1 inh inhalation DAILY 08/03/23 11/23/23 62.5 mcg-vilant 25 mcg inhalat.powder (Trelegy Ellipta) fluticasone propionate 50 1 spray intranasal BID 08/03/23 11/23/23 mcg/actuation nasal spray,suspension insulin glargine 100 unit/mL (3 16 unit subcut QPM 08/03/23 11/23/23 mL) subcutaneous pen (Lantus Solostar U-100 Insulin) insulin lispro 100 unit/mL 28 unit subcut TID 08/03/23 11/23/23 subcutaneous pen (Humalog KwikPen (U-100) Insulin) ipratropium bromide 21 mcg (0.03 2 spray intranasal DAILY 08/03/23 11/23/23 %) nasal spray levothyroxine 150 mcg tablet 150 mcg PO DAILY 08/03/23 11/23/23 risperidone 0.5 mg tablet 0.5 mg PO DAILY 08/03/23 11/23/23 tamsulosin 0.4 mg capsule 0.4 mg PO BID 08/03/23 11/23/23 Allergies Allergy/AdvReac Type Severity Reaction Status Date / Time carbamazepine Allergy Mild Unknown Verified 11/23/23 12:50 meperidine Allergy Mild Unknown Verified 11/23/23 12:50 prednisone Allergy Mild Unknown Verified 11/23/23 12:50 Review of Systems Review of Systems: All systems reviewed & are unremarkable except as noted in HPI and below Constitutional: Constitutional: Reports no additional constitutional complaints Eyes: Eyes: Reports no additional eye complaints ENT: Reports system reviewed and no additional complaints, except as documented Cardiovascular: Cardiovascular: Reports no additional cardiovascular complaints, Denies chest pain and Denies dyspnea Respiratory: Respiratory: Reports no additional respiratory complaints, Denies cough and Denies dyspnea Genitourinary: Genitourinary: Reports as per HPI, Reports nocturia, Denies flank pain, Reports urinary incontinence, Reports urinary urgency and Reports vaginal discharge Musculoskeletal: Musculoskeletal: Reports no additional musculoskeletal complaints Neurologic: Reports system reviewed and no additional complaints, except as documented Psychiatric: Psychiatric: Reports no additional psychiatric complaints PMFSH Past Medical History Medical History Anxiety Bipolar 1 disorder Brain damage Brain ventricular shunt displacement
[2023-11-23 12:50] VITALS: BP 123/81; PULSE 92; RESP 20; TEMP 36.6; O2SAT 100
[2023-11-23 12:58] VITALS: BP 123/81; PULSE 92; RESP 20; O2SAT 100
== END 2023-11-23 13:15 | disposition home or self-care (01) ==
PROVIDERS: Emergency Provider Nurse Practitioner Family; PCP Internal Medicine
DX: B37.31 Acute candidiasis of vulva and vagina (principal); Z87.891 Personal history of nicotine dependence; I12.9 Hypertensive chronic kidney disease with stage 1 through stage 4 chronic kidney disease, or unspecified chronic kidney disease; E11.22 Type 2 diabetes mellitus with diabetic chronic kidney disease; N18.4 Chronic kidney disease, stage 4 (severe); Z79.4 Long term (current) use of insulin; J44.9 Chronic obstructive pulmonary disease, unspecified; E03.9 Hypothyroidism, unspecified; F31.9 Bipolar disorder, unspecified; Z96.651 Presence of right artificial knee joint; Z98.2 Presence of cerebrospinal fluid drainage device
CPT/HCPCS: 81003; 99213; G0463

== ENCOUNTER 2024-04-03 13:14 | Emergency (ER) | payer MEDICARE, MEDICAID, SELFPAY ==
[2024-04-03 13:20] VITALS: BP 97/71; PULSE 88; RESP 20; TEMP 36.7; O2SAT 100
--- NOTE | 2024-04-03 13:42 | ED.URI ---
HPI - URI/Sore Throat General Chief Complaint: Upper Respiratory Infection Stated Complaint: sinus issues Time Seen by Provider: 04/03/24 13:43 Source: patient and RN notes reviewed Mode of arrival: ambulatory Limitations: no limitations History of Present Illness HPI Narrative: 64 y/o female with Hx DM, CKD, HTN presented for c/o cough, nasal congestion and pressure, body aches, subjective fever. Onset 2 days. Denies sob, wheezing, n/v/d. Reports her caregiver was sick last week. Not taking anything for symptoms. MD elicited complaint: cough Related Data Home Medications Medication Instructions Recorded Confirmed ascorbate calcium (vitamin C) 500 500 mg PO DAILY 01/02/22 11/23/23 mg tablet calcium carbonate 600 mg-vitamin 1 cap PO DIRECTED 01/02/22 11/23/23 D3 12.5 mcg (500 unit) capsule (Calcium 600 with Vitamin D3) hydrochlorothiazide 25 mg tablet 25 mg PO BID 01/02/22 11/23/23 hydroxyzine HCl 25 mg tablet 25 mg PO BID PRN Itching 01/02/22 11/23/23 lisinopril 20 mg tablet 20 mg PO BID 01/02/22 11/23/23 linaclotide 72 mcg capsule 72 mcg PO QAM 08/10/22 11/23/23 (Linzess) atorvastatin 20 mg tablet 20 mg PO DAILY 05/31/23 11/23/23 citalopram 20 mg tablet 20 mg PO DAILY 05/31/23 11/23/23 trimethoprim 100 mg tablet 100 mg PO DAILY 05/31/23 11/23/23 alendronate 70 mg tablet 70 mg PO DAILY 06/22/23 11/23/23 amlodipine 5 mg tablet 5 mg PO DAILY 08/03/23 11/23/23 buspirone 15 mg tablet 15 mg PO DAILY 08/03/23 11/23/23 divalproex 500 mg tablet,delayed 500 mg PO QID 08/03/23 11/23/23 release famotidine 40 mg tablet 40 mg PO DAILY 08/03/23 11/23/23 fluticasone fur. 200 mcg-umeclid 1 inh inhalation DAILY 08/03/23 11/23/23 62.5 mcg-vilant 25 mcg inhalat.powder (Trelegy Ellipta) fluticasone propionate 50 1 spray intranasal BID 08/03/23 11/23/23 mcg/actuation nasal spray,suspension insulin glargine 100 unit/mL (3 16 unit subcut QPM 08/03/23 11/23/23 mL) subcutaneous pen (Lantus Solostar U-100 Insulin) insulin lispro 100 unit/mL 28 unit subcut TID 08/03/23 11/23/23 subcutaneous pen (Humalog KwikPen (U-100) Insulin) ipratropium bromide 21 mcg (0.03 2 spray intranasal DAILY 08/03/23 11/23/23 %) nasal spray levothyroxine 150 mcg tablet 150 mcg PO DAILY 08/03/23 11/23/23 risperidone 0.5 mg tablet 0.5 mg PO DAILY 08/03/23 11/23/23 tamsulosin 0.4 mg capsule 0.4 mg PO BID 08/03/23 11/23/23 semaglutide 0.25 mg or 0.5 mg (2 mg subcut 04/03/24 mg/3 mL) subcutaneous pen injector (Ozempic) Allergies Allergy/AdvReac Type Severity Reaction Status Date / Time carbamazepine Allergy Mild Unknown Verified 11/23/23 12:50 meperidine Allergy Mild Unknown Verified 11/23/23 12:50 prednisone Allergy Mild Unknown Verified 11/23/23 12:50 Review of Systems Review of Systems: CONSTITUTIONAL: malaise, reports chills, fever EYES: Denies visual changes, redness, or discharge ENT: Reports rhinorrhea, congestion, sinus pain, denies otalgia, sore throat CARDIOVASCULAR: Denies chest pain, palpitations, edema RESPIRATORY: Reports cough, post nasal drainage. Denies dyspnea GASTROINTESTINAL: Denies abdominal pain, nausea, vomiting, diarrhea SKIN: Denies rash or itching MUSCULOSKELETAL: Endorses myalgia PMFSH Past Medical History Medical History Anxiety Bipolar 1 disorder Brain damage Brain ventricular shunt displacement Chronic kidney disease, stage IV (severe) COPD (chronic obstructive pulmonary disease) Depression Diabetes Hypertension Hypothyroidism Seizures Sleep apnea Surgical History Surgical History H/O: hysterectomy 1992 History of appendectomy History of brain shunt History of right knee joint replacement S/P cholecystectomy Family History Family History Father Alcoholism Asthma Diabetes mellitus Hypertension Social
[2024-04-03 14:10] LABS: EDINFLUASCREEN Negative (Negative); EDINFLUBSCREEN Negative (Negative)
== END 2024-04-03 14:16 | disposition home or self-care (01) ==
PROVIDERS: Emergency Provider Nurse Practitioner Family; PCP Internal Medicine
DX: J06.9 Acute upper respiratory infection, unspecified (principal); Z20.822 Contact with and (suspected) exposure to COVID-19; Z87.891 Personal history of nicotine dependence; I12.9 Hypertensive chronic kidney disease with stage 1 through stage 4 chronic kidney disease, or unspecified chronic kidney disease; E11.22 Type 2 diabetes mellitus with diabetic chronic kidney disease; N18.4 Chronic kidney disease, stage 4 (severe); Z79.4 Long term (current) use of insulin; E03.9 Hypothyroidism, unspecified; F41.9 Anxiety disorder, unspecified; F32.A Depression, unspecified; Z98.2 Presence of cerebrospinal fluid drainage device; Z96.651 Presence of right artificial knee joint
CPT/HCPCS: 87635; 87804; 99213; G0463

== ENCOUNTER 2024-08-02 13:22 | Emergency (ER) | payer MEDICARE, SELFPAY ==
[2024-08-02 13:37] LABS: EDUAAPPEAR Clear; EDUABILI Negative (Negative); EDUABLOOD Negative (Negative); EDUACOLOR1 Yellow; EDUAGLUCOSE Negative (Negative); EDUAKETONE Negative (Negative); EDUALEUKO Negative (Negative); EDUANITRATE Negative (Negative); EDUAPH 6.5; EDUAPROTEIN Negative (Negative); EDUAUROBILI 0.2
[2024-08-02 13:45] VITALS: BP 145/64; PULSE 65; RESP 18; TEMP 36.3; O2SAT 98
[2024-08-02 14:10] LABS: EDCOVIDSCREEN Negative (Negative); EDINFLUASCREEN Negative (Negative); EDINFLUBSCREEN Negative (Negative)
--- NOTE | 2024-08-02 15:02 | ED.GENADULT ---
HPI - General Adult General Chief complaint: Urogenital-Female Stated complaint: Urinary Problem Source: patient Mode of arrival: ambulatory Limitations: no limitations History of Present Illness HPI narrative: Patient presents for evaluation of sinus symptoms. She states she was recently treated for sinusitis with augmentin. She has experienced frontal and maxillary sinus pressure, sinus congestion and thick green nasal drainage. No fever, chills, nausea, vomiting, cough or SOB. Augmentin did not seem to help her symptoms. No recent sick contacts to her knowledge. She is wondering if she has a UTI. She has some urinary frequency without other urinary symptoms. Home BS recently 200. Related Data Home Medications ?Medication ?Instructions ?Recorded ?Confirmed ?Last Taken ?Type ascorbate calcium (vitamin C) 500 500 mg PO DAILY 01/02/22 11/23/23 Unknown History mg tablet calcium 600 mg (as 1 cap PO DIRECTED 01/02/22 11/23/23 Unknown History carbonate)-vitamin D3 12.5 mcg (500 unit) capsule (Calcium with Vit D3) hydrochlorothiazide 25 mg tablet 25 mg PO BID 01/02/22 11/23/23 Unknown History hydroxyzine HCl 25 mg tablet 25 mg PO BID PRN Itching 01/02/22 11/23/23 Unknown History lisinopril 20 mg tablet 20 mg PO BID 01/02/22 11/23/23 Unknown History linaclotide 72 mcg capsule 72 mcg PO QAM 08/10/22 11/23/23 Unknown History (Linzess) atorvastatin 20 mg tablet 20 mg PO DAILY 05/31/23 11/23/23 Unknown History citalopram 20 mg tablet 20 mg PO DAILY 05/31/23 11/23/23 Unknown History trimethoprim 100 mg tablet 100 mg PO DAILY 05/31/23 11/23/23 Unknown History alendronate 70 mg tablet 70 mg PO DAILY 06/22/23 11/23/23 Unknown History amlodipine 5 mg tablet 5 mg PO DAILY 08/03/23 11/23/23 Unknown History buspirone 15 mg tablet 15 mg PO DAILY 08/03/23 11/23/23 Unknown History divalproex 500 mg tablet,delayed 500 mg PO QID 08/03/23 11/23/23 Unknown History release famotidine 40 mg tablet 40 mg PO DAILY 08/03/23 11/23/23 Unknown History fluticasone fur. 200 mcg-umeclid 1 inh inhalation DAILY 08/03/23 11/23/23 Unknown History 62.5 mcg-vilant 25 mcg inhalat.powder (Trelegy Ellipta) fluticasone propionate 50 1 spray intranasal BID 08/03/23 11/23/23 Unknown History mcg/actuation nasal spray,suspension insulin glargine 100 unit/mL (3 16 unit subcut QPM 08/03/23 11/23/23 Unknown History mL) subcutaneous pen (Lantus Solostar U-100 Insulin) insulin lispro 100 unit/mL 28 unit subcut TID 08/03/23 11/23/23 Unknown History subcutaneous pen (Humalog KwikPen (U-100) Insulin) ipratropium bromide 21 mcg (0.03 2 spray intranasal DAILY 08/03/23 11/23/23 Unknown History %) nasal spray levothyroxine 150 mcg tablet 150 mcg PO DAILY 08/03/23 11/23/23 Unknown History risperidone 0.5 mg tablet 0.5 mg PO DAILY 08/03/23 11/23/23 Unknown History tamsulosin 0.4 mg capsule 0.4 mg PO BID 08/03/23 11/23/23 Unknown History semaglutide 0.25 mg or 0.5 mg (2 0.25 mg subcut WEEKLY 04/03/24 Unknown History mg/3 mL) subcutaneous pen injector (Ozempic) Allergies Allergy/AdvReac Type Severity Reaction Status Date / Time carbamazepine Allergy Mild Unknown Verified 08/02/24 14:06 meperidine Allergy Mild Unknown Verified 08/02/24 14:06 prednisone Allergy Mild Unknown Verified 08/02/24 14:06 Review of Systems Review of Systems: CONSTITUTIONAL: Denies fever, chills, or sweats. EYES: Denies visual changes, redness, or discharge. ENT: Reports sinus congestion and thick green nasal drainage. Denies sore throat or otalgia. CARDIOVASCULAR: Denies chest pain, palpitations, or edema. RESPIRATORY: Denies cough or dyspnea. GASTROINTESTINAL: Denies abdominal pain, nausea, vomiting, or diarrhea. GENITOURINARY: Reports urinary frequency. Denies dysuria or hematuria. SKIN: Denies rash or itching. MUSCULOSKELETAL: Denies back pain, joint pain, or myalgia. NEUROLOGIC: Reports frontal headache. Denies numbness, dizziness, or weakness. PSYCHIATRIC: Denies anxiety or depression. [facility] Past Medical History Medical History Sleep apnea Seizures Bipolar 1 disorder Chronic kidney disease, stage IV (severe) Depression Anxiety COPD (chronic obstructive pulmonary disease) Brain damage Hypothyroidism Hypertension Diabetes Brain ventricular shunt displacement Surgical History Surgical History History of brain shunt History of right knee joint replacement History of appendectomy S/P cholecystectomy H/O: hysterectomy 1991 Family History Family History Father Alcoholism Asthma Diabetes mellitus Hypertension Social History Social History Smoking status: Former smoker Tobacco type: cigarettes Alcohol intake: never Substance use: never Do You Feel Safe in your Home?: Yes Lack of Transportation: No Lack of Food: Sometimes True Current Housing: I Have Housing Concerned About Future Housing: No Difficulty Paying Gas/Electric Bills: YES Difficulty Paying for Meds: No Currently Unemployed: No Education: High School Diploma/GED Difficulty w/ Childcare or Family Care: No Gender identity (if verbalized by the patient): Female Spiritual care concerns: No Exam Narrative: GENERAL: Well-appearing, well-nourished, and in no acute distress. HEAD: Normocephalic, atraumatic. EYES: PERRLA and EOMI. ENT: Thick yellow nasal drainage present. Mucous membranes moist. Oropharynx without tonsillar hypertrophy exudate or other lesions. Bilateral TMs pearly kruger nonbulging NECK: Supple. No adenopathy or masses. No carotid bruits or JVD CHEST: Clear to auscultation. No respiratory distress. No wheezes rales or rhonchi HEART: Regular rate and rhythm. No murmur heard. Normal peripheral pulses. ABDOMEN: Soft, nontender, nondistended, normal active bowel sounds. EXTREMITIES: Normal range of motion. No edema. SKIN: Warm, dry, no rash. NEURO: No focal deficits. Alert and oriented x3. PSYCH: Normal mood and affect. Course Course Emergency Course: This is a 64-year-old female who presented for evaluation of sinus symptoms. She meets criteria for ARBS based upon duration of time in which she has been symptomatic and mucopurulent nature of her discharge. Already took augmentin. Will dc with doxycycline. In terms of her urinary frequency she does not have evidence of infection in her urine today. Advised she monitor BS closely at home. Advised she follow up with her PCP and go to the ER for worsening symptoms. Pt in agreement with plan of care. Level of Care: Express Care Visit Vital Signs Vital signs: Vital Signs Temperature 36.3 C L 08/02/24 13:45 Pulse Rate 65 08/02/24 13:45 Respiratory Rate 18 08/02/24 13:45 Blood Pressure 145/64 H 08/02/24 13:45 Pulse Oximetry 98 08/02/24 13:45 Oxygen Delivery Room Air 08/02/24 13:45 Temperature 36.3 C L 08/02/24 13:45 Pulse Rate 65 08/02/24 13:45 Respiratory Rate 18 08/02/24 13:45 Blood Pressure 145/64 H 08/02/24 13:45 Pulse Oximetry 98 08/02/24 13:45 Oxygen Delivery Room Air 08/02/24 13:45 Medical Decision Making Vital Signs Vital Signs: Vital Signs Temperature 36.3 C L 08/02/24 13:45 Pulse Rate 65 08/02/24 13:45 Respiratory Rate 18 08/02/24 13:45 Blood Pressure 145/64 H 08/02/24 13:45 Pulse Oximetry 98 08/02/24 13:45 Oxygen Delivery Room Air 08/02/24 13:45 Temperature 36.3 C L 08/02/24 13:45 Pulse Rate 65 08/02/24 13:45 Respiratory Rate 18 08/02/24 13:45 Blood Pressure 145/64 H 08/02/24 13:45 Pulse Oximetry 98 08/02/24 13:45 Oxygen Delivery Room Air 08/02/24 13:45 Lab Data Labs: Lab Results 08/02/24 08/02/24 Range/Units 13:35 14:08 POC Urine Color Yellow POC Urine Clarity Clear POC Urine pH 6.5 POC Ur Specif [place] 1.020 POC Urine Protein Negative (Negative) POC Ur Glucose (UA) Negative (Negative) POC Urine Ketones Negative (Negative) POC Urine Blood Negative (Negative) POC Urine Nitrite Negative (Negative) POC Urine Bilirubin Negative (Negative) POC Urine Urobilinogen 0.2 POC U Leukocyte Esteras Negative (Negative) POC Influenza A Ag Negative (Negative) POC Influenza B Ag Negative (Negative) POC SARS CoV-2 Ag Negative (Negative) Discharge Plan Discharge Clinical Impression: Sinusitis Patient Disposition: Home, Self-Care Condition: Stable Instructions: Antibiotic Form, Sinusitis (ED) Patient Language: Vietnamese Prescriptions: New doxycycline hyclate 100 mg tablet 100 mg PO BID Qty: 20 0RF No Action atorvastatin 20 mg tablet 20 mg PO DAILY trimethoprim 100 mg tablet 100 mg PO DAILY citalopram 20 mg tablet 20 mg PO DAILY alendronate 70 mg tablet 70 mg PO DAILY ipratropium bromide 21 mcg (0.03 %) spray,non-aerosol 2 spray INTRANASAL DAILY famotidine 40 mg tablet 40 mg PO DAILY amlodipine 5 mg tablet 5 mg PO DAILY divalproex 500 mg tablet,delayed release (DR/EC) 500 mg PO QID tamsulosin 0.4 mg capsule 0.4 mg PO BID levothyroxine 150 mcg tablet 150 mcg PO DAILY fluticasone propionate 50 mcg/actuation spray,suspension 1 spray INTRANASAL BID risperidone 0.5 mg tablet 0.5 mg PO DAILY buspirone 15 mg tablet 15 mg PO DAILY insulin glargine [Lantus Solostar U-100 Insulin] 100 unit/mL (3 mL) insulin pen 16 unit SUBCUT QPM insulin lispro [Humalog KwikPen Insulin] 100 unit/mL insulin pen 28 unit SUBCUT TID Trelegy Ellipta 200-62.5-25 mcg Blister With Device 1 inh INHALATION DAILY Ozempic 0.25 mg or 0.5 mg (2 mg/3 mL) pen injector 0.25 mg SUBCUT WEEKLY hydrochlorothiazide 25 mg tablet 25 mg PO BID lisinopril 20 mg tablet 20 mg PO BID hydroxyzine HCl 25 mg tablet 25 mg PO BID PRN (Reason: Itching) calcium carbonate-vitamin D3 [Calcium 600 with Vitamin D3] 600 mg-12.5 mcg (500 unit) capsule 1 cap PO DIRECTED ascorbate calcium (vitamin C) 500 mg tablet 500 mg PO DAILY Linzess 72 mcg capsule 72 mcg PO QAM estradiol [Yuvafem] 10 mcg tablet 10 mcg vaginal 2XW Qty: 24 3RF furosemide 40 mg tablet 40 mg PO BID Qty: 360 3RF Follow-up/Referrals: Nita,MD Sharon [Primary Care Provider] - Time of Disposition: 14:25
--- OUTSIDE RECORDS SUMMARY | 2024-08-04 01:12 | XMS_ITS | Continuity of Care Document ---
Author Organization [facility] Address [address] [place] [address] Insurance Providers Payer Plan Claims Address Claims Phone Policy Number Group Number Relation Employer Guarantor Name Guarantor Guarantor Address Guarantor Phone MED[employer] [address] [address], [place] [address] [id number] Self Khadra Cmrichard [address] [place] [address] [address], [place] [address] MEDIC AID - OUT OF STATE [address] [address], [place] [address] [id number] Self Khadra Cmrichard [address] [place] [address] [id number], [place] [address] MEDIC ARE [address], [place] [address] tel:[phone] Self Khadra Cmrichard [address] [place] [address] [id number], [place] [address] Problems Unknown Problems Results No Results Allergies, adverse reactions, alerts No known allergies and adverse reactions Immunizations Vaccine Route Date Status Covid-19 10/30/2022 Completed Medications No administered medications reported Vital Signs Date Vital Result Comment 12/02/2022 Inhaled Oxygen Concentration 21.0 % N Faces Pain Scale 0.0 N Temperature 98 [degF] N Oxygen Saturation 99 % N Respiratory Rate 18 /min N Heart Rate 68 /min N Blood Pressure Systolic 115 mm[Hg] N Blood Pressure Diastolic 62 mm[Hg] N Body Height 69 [in_i] N Body Weight 245 [lb_av] N Body Mass Index 36.2 kg/m2 N 10/30/2022 Inhaled Oxygen Concentration 21.0 % N Faces Pain Scale 0.0 N Temperature 97.2 [degF] N Oxygen Saturation 96 % N Respiratory Rate 18 /min N Heart Rate 78 /min N Blood Pressure Systolic 124 mm[Hg] N Blood Pressure Diastolic 74 mm[Hg] N Body Height 69 [in_i] N Body Weight 226 [lb_av] N Body Mass Index 33.4 kg/m2 N 02/12/2023 Inhaled Oxygen Concentration 21.0 % N Faces Pain Scale 0.0 N Temperature 97.2 [degF] N Oxygen Saturation 98 % N Respiratory Rate 18 /min N Heart Rate 78 /min N Blood Pressure Systolic 140 mm[Hg] N Blood Pressure Diastolic 74 mm[Hg] N Body Height 69 [in_i] N Body Weight 235 [lb_av] N Body Mass Index 34.7 kg/m2 N 04/05/2023 Inhaled Oxygen Concentration 21.0 % N Faces Pain Scale 0.0 N Oxygen Saturation 96 % N Respiratory Rate 20 /min N Heart Rate 74 /min N Blood Pressure Systolic 148 mm[Hg] N Blood Pressure Diastolic 78 mm[Hg] N Body Height 69 [in_i] N Body Weight 219 [lb_av] N Body Mass Index 32.3 kg/m2 N 04/21/2023 Inhaled Oxygen Concentration 21.0 % N Faces Pain Scale 0.0 N Oxygen Saturation 98 % N Respiratory Rate 18 /min N Heart Rate 78 /min N Blood Pressure Systolic 138 mm[Hg] N Blood Pressure Diastolic 74 mm[Hg] N Body Height 69 [in_i] N Body Weight 224 [lb_av] N Body Mass Index 33.1 kg/m2 N 05/07/2023 Inhaled Oxygen Concentration 21.0 % N Blood Sugar 156.0 mg/dl N Temperature 97.9 [degF] N Oxygen Saturation 94 % N Respiratory Rate 18 /min N Heart Rate 77 /min N Blood Pressure Systolic 135 mm[Hg] N Blood Pressure Diastolic 77 mm[Hg] N Body Height 69 [in_i] N 07/28/2023 Inhaled Oxygen Concentration 21.0 % N Faces Pain Scale 0.0 N Oxygen Saturation 97 % N Respiratory Rate 18 /min N Heart Rate 78 /min N Blood Pressure Systolic 134 mm[Hg] N Blood Pressure Diastolic 74 mm[Hg] N Body Height 69 [in_i] N Body Weight 235 [lb_av] N Body Mass Index 34.7 kg/m2 N 10/12/2023 Inhaled Oxygen Concentration 21.0 % N Faces Pain Scale 0.0 N Oxygen Saturation 99 % N Respiratory Rate 20 /min N Heart Rate 78 /min N Blood Pressure Systolic 122 mm[Hg] N Blood Pressure Diastolic 74 mm[Hg] N Body Height 69 [in_i] N Body Weight 211 [lb_av] N Body Mass Index 31.2 kg/m2 N 12/24/2023 Inhaled Oxygen Concentration 21.0 % N Faces Pain Scale 0.0 N Temperature 97.6 [degF] N Oxygen Saturation 97 % N Respiratory Rate 18 /min N Heart Rate 74 /min N Blood Pressure Systolic 119 mm[Hg] N Blood Pressure Diastolic 67 mm[Hg] N Body Height 69 [in_i] N Body Weight 211 [lb_av] N Body Mass Index 31.2 kg/m2 N 02/29/2024 Inhaled Oxygen Concentration 21.0 % N Faces Pain Scale 0.0 N Oxygen Saturation 97 % N Respiratory Rate 18 /min N Heart Rate 74 /min N Blood Pressure Systolic 119 mm[Hg] N Blood Pressure Diastolic 91 mm[Hg] N Body Height 69 [in_i] N Body Weight 210 [lb_av] N Body Mass Index 31 kg/m2 N Social History No smoking Hx information available Functional Status Category Condition Date Problem (Feeding: Independent) Feeding: Independ ent 10/30/2022 Problem (Bathing: Independen t (or in shower)) Bathing: Independent (or in shower) 10/30/2022 Problem (Grooming: Independe nt face/hair/teeth/ shaving (implements provided)) Grooming: Independent face/hair/teeth/ shaving (implements provided) 10/30/2022 Problem (Dressing: Independe nt (including buttons, zips, laces, etc.)) Dressing: Independent (including buttons, zips, laces, etc.) 10/30/2022 Problem (Bowels: Continent) Bowels: Continent Problem (Bladder: Continent) Bladder: Continent 10/30/2022 Problem (Toilet use: Indepen dent (on and off, dressing, wiping)) Toilet use: Independent (on and off, dressing, wiping) 10/30/2022 Problem (Transfers (bed to c hair and back): Independent) Transfers (bed to chair and back): Independent 10/30/2022 Problem (Mobility (on level surfaces): Wheelchair independent, including corners, >50 yards) Mobility (on level surfaces): Wheelchair independent, including corners, >50 yards 10/30/2022 Problem (Stairs: Unable) Stairs: Unable 023 Problem (Total score: 80) Total score: 80 2022 Problem (Feeding: Independent) Feeding: Independ ent 10/12/2023 Problem (Bathing: Independen t (or in shower)) Bathing: Independent (or in shower) 10/12/2023 Problem (Grooming: Independe nt face/hair/teeth/ shaving (implements provided)) Grooming: Independent face/hair/teeth/ shaving (implements provided) 10/12/2023 Problem (Dressing: Independe nt (including buttons, zips, laces, etc.)) Dressing: Independent (including buttons, zips, laces, etc.) 10/12/2023 Problem (Bowels: Continent) Bowels: Continent Problem (Bladder: Continent) Bladder: Continent 10/12/2023 Problem (Toilet use: Indepen dent (on and off, dressing, wiping)) Toilet use: Independent (on and off, dressing, wiping) 10/12/2023 Problem (Transfers (bed to c hair and back): Independent) Transfers (bed to chair and back): Independent 10/12/2023 Problem (Mobility (on level surfaces): Independent (but may use any aid; for example, stick) >50 yards) Mobility (on level surfaces): Independent (but may use any aid; for example, stick) >50 yards 10/12/2023 Problem (Stairs: Independent) Stairs: Independen t 10/12/2023 Problem (Total score: 100) Total score: 100 08/2023 Problem (Feeding: Independent) Feeding: Independ ent 02/29/2024 Problem (Bathing: Independen t (or in shower)) Bathing: Independent (or in shower) 02/29/2024 Problem (Grooming: Independe nt face/hair/teeth/ shaving (implements provided)) Grooming: Independent face/hair/teeth/ shaving (implements provided) 02/29/2024 Problem (Dressing: Independe nt (including buttons, zips, laces, etc.)) Dressing: Independent (including buttons, zips, laces, etc.) 02/29/2024 Problem (Bowels: Continent) Bowels: Continent Problem (Bladder: Continent) Bladder: Continent 02/29/2024 Problem (Toilet use: Indepen dent (on and off, dressing, wiping)) Toilet use: Independent (on and off, dressing, wiping) 02/29/2024 Problem (Transfers (bed to c hair and back): Independent) Transfers (bed to chair and back): Independent 02/29/2024 Problem (Mobility (on level surfaces): Independent (but may use any aid; for example, stick) >50 yards) Mobility (on level surfaces): Independent (but may use any aid; for example, stick) >50 yards 02/29/2024 Problem (Stairs: Independent) Stairs: Independen t 02/29/2024 Problem (Total score: 100) Total score: 100 02/10 Mental Status Category Condition Date Cognitive function Normal 10/12/2023 Cognitive function Normal 02/29/2024
--- OUTSIDE RECORDS SUMMARY | 2024-08-04 01:12 | XMS_ITS | Data Portability ---
Author Organization [facility] [place] Address [address] [address] Care Team Providers Care Keysmith Name Role Phone BRYAN SCALES Primary Care Provider Assessment Encounter Date Assessment Date Assessment LastModified by Organization Details LastModified Time 12/14/2019 12/14/2019 Annual gynecological exam performed. Patient will come back in a year unless there are new symptoms. [email or web address] Not available 12/14/2019 13:53:22 Plan of Treatment Reminders Order Date Submit Date Provider Last Modified By Organization Details Last Modified Time Details Appointments None record ed. Lab None record ed. Referral None record ed. Procedures None record ed. Surgeries None record ed. Imaging None record ed. Medication Orders None record ed. Patient TargetsNo targets recorded. Patient InstructionsNo instructions recorded. Reason for Referral None Reported. Results Created Date Observation Date Name Description Value Unit Range Abnormal Flag Note LastModifiedBy Organization Detail LastModifiedTime 12/14/19 20 12/14/2019 urina lysis , dipst ick Leukocytes Trace Not Available Jairo hanna [address], [place], [address], 12/14/2019 16:35:23 12/14/19 20 12/14/2019 urina lysis , dipst ick Protein Trace Not Available [place] [address], [place], [address], 12/14/2019 16:35:23 12/14/19 20 12/14/2019 urina lysis , dipst ick Glucose 100 Not Available [place] [address], [place], [address], 12/14/2019 16:35:23 12/14/19 20 12/14/2019 fecal occul t blood , stool Occult Blood negati ve Not Available [place] [address], [place], [address], 12/14/2019 14:58:44 Result Notes None recorded. Procedures Surgical History Date Name Laterality Status Provider Name and Address Organization Details Recorded Time 019 replacement of bilateral knee joints completed [facility] 12/14/2019 14:27:26 018 Date of Last Pap Smear completed [facility] 12/14/2019 14:22:33 015 Other completed [facility] 12/14/2019 14:28:01 992 hysterectomy completed [facility] 12/14/2019 14:27:09 982 Cholecystectomy completed [facility] 12/14/2019 14:26:37 971 Appendectomy completed [facility] 12/14/2019 14:23:24 Imaging Results None recorded. Procedure Notes None recorded. Medical Equipment None Reported. Allergies Allergen ID Allergen Name Allergen Category Reaction Reaction Severity Criticality Documentation Date Start Date Code Code System Note Provider Name and Address Organization Details Recorded Time 857 Product containin g glucocort icoid (product) medicatio n Not available Not available Not available 12/14/2019 65808 6006 SNOMED [place] [facility] 0 14:21:16 858 Tegretol medicatio n itching Not available Not available 12/14/2019 9 RxNorm [place] [facility] 0 14:21:42 859 Demerol medicatio n vomiting Not available Not available 12/14/2019 28167 1 RxNorm Juani [facility] 0 14:21:55 Medications Name Sig Start Date Stop Date Status Note LastModified by Organization Details LastModified Time Premarin 0.625 mg/gram vaginal cream active Not Available Not Available Not Available Vitals Date Recorded Body height Body mass index (BMI) Body weight Systolic blood pressure Diastolic blood pressure Provider Name and Address Organization Details Last Updated DateTime 12/14/2019 175.26 cm 30 kg/m2 50655.2 5 g 155 mm[Hg] 85 mm[Hg] Juani Harvey [facility] 0 14:21:08 Social History None recorded. Functional Status None recorded. Mental Status None recorded. Family History Relationship Description Onset Age of this Age Resolved Age Notes LastModified by Organization Details LastModified Time Father No current problems or disability [email or web address] l Not available 12/14/2019 14:23:03 Mother No current problems or disability [email or web address] l Not available 12/14/2019 14:23:03 Medical History Condition Response Diabetes Y Heart Problems Y Other High Cholesterol Y Heart Disease Y Thyroid Problems Y Kidney or Bladder Problems Y Hypertension Y Neurologic/Epilepsy Y Psychiatric Illness Y Gynecological History Statement/Question Response Date of Last Pap Smear 07/12/2017 Current Control Method Hysterectom y Date of LMP 07/12/1991 LMP Approximate Obstetrics History GPAL:G 0 P 0 0 0 0 Past Encounters Encounter ID Performer Location Encounter Start Date Encounter Closed Date Diagnosis/Indication Diagnosis SNOMED-CT Code Diagnosis ICD10 Code Diagnosis Note [id number] [place] [address] [address] 12/14/2019 13:18:52 12/14/2019 14:57:35 Routine gynecologic examination done 2421928299 9101 Z01.419 No pap needed since s/p hysterecto my due to fibroids and bleeding. Last mammogram 2 years ago, order given. Colonoscop y 15 years ago, normal then so she's due. Health Concerns Section Related Observation LastModified by Organization Detai ls LastModified Time None Recorded Concern Status LastModified by Organization Details LastModified Time None Recorded Advance Directives Directive None Recorded Payers Encounter Date Sequence Insurance Name Policy Number Policy Morales Covered Member ID Morales Member ID Guarantor Name 12/14/2019 2 [place]: [facility] Khadra Beltran [id number] Khadra Beltran 12/14/2019 1 MEDICARE-[place] (MEDICARE) Khadra Stallworth [id number] Khadra Beltran Notes Date Note Type Note Provider Name and Address Organization Details Recorded Time 12/14/2019 text/html Annual GYNReport ed bypatient.Menstrua l cycle:Normal menses Urinary symptoms:No hematuria; No incontinence Vulva:No genital lesion Vagina:Normal vaginal discharge Breast:No breast pain; No breast lump; No nipple discharge Sexual complaints:No sexual complaints; No pain during intercourse; Normal libido Menopausal Symptoms:No menopausal symptoms; Normal vaginal lubrication Psychological symptoms:No depression; No anxiety; No PMDD [facility] cali [facility] - [facility] 12/14/2019 15:45:03 OBGyn Episode No OBEpisode recorded.
--- OUTSIDE RECORDS SUMMARY | 2024-08-04 01:13 | XMS_ITS | Data Portability ---
Author Organization [facility] Address [address] [place] [address] Care Team Providers Care Director Of Analytics Name Role Phone SHARON PADRON Primary Care Provider NONA JACKSON Application Services Manager Assessment No assessment recorded. Plan of Treatment Reminders Order Date Submit Date Provider Last Modified By Organization Details Last Modified Time Details Appointments ANY 30 2024 02:30P Rahat CAMARILLO, STEFANI-BC Not available Not available Not available Lab vaginal pathogens panel, KOLE+probe , vaginal fluid 2023 024 [facility], [address], [address], [place], [address], 11/29/2023 03:35:33 CBC w/ auto diff 2023 024 [facility], [address] [facility] [address], [place], [address], 02/02/2024 05:10:17 CMP, serum or plasma 2023 024 [facility], [address] [facility], [facility] [address], [place], [address], 02/02/2024 05:10:16 lipid panel, serum 2023 024 [facility], [address] [facility], [facility] [address], [place], [address], 02/02/2024 05:10:15 TSH, ultra-sen sitive, serum 2023 024 [facility], [address] [facility], [facility] [address], [place], [address], 02/02/2024 05:10:16 vaginal pathogens panel, KOLE+probe , vaginal fluid 2023 024 [facility], [address] [facility], [facility] [address], [place], [address], 02/14/2024 03:35:[address] referral 2023 024 [email or web address], [address] [facility] [place], [address], 05/22/2024 11:30:43 Procedures None recorded. Surgeries None recorded. Imaging XR, chest, 2 view 2024 025 [facility], [address] [facility] [place], [address], 07/24/2024 16:17:22 Medication Orders nystatin 100,000 unit/gram topical cream 2023 024 [id number], [address] [place], [address], 11/26/2023 14:21:18 Patient TargetsNo targets recorded. Patient Instructions Encounter Date Encounter Id Patient Instructions Last Modified By Organization Details Last Modified Time 02/01/2024 [id number] A healthy lifestyle: care instructions nsuthan Not available 02/01/2024 11:38:03 f/u in 6 month nsuthan Not available 0 02/01/2024 11:38:35 05/05/2024 [id number] f/u in 3 month nsuthan Not available 05/05/2024 15:11:07 07/24/2024 [id number] f/u in 2 month nsuthan Not available 07/24/2024 15:48:23 Reason for Referral Neurologist Referral for Chr onic tremor Referring Physician: Aubrey Padron, Internal Medicine, Encounter Date: 05/05/2024 Results Created Date Observation Date Name Description Value Unit Range Abnormal Flag Note LastModifiedBy Organization Detail LastModifiedTime 11/18/19 24 11/20/2023 URINE CULTU RE, ROUTI NE urine culture, routine Final report Not Available [facility] ([facility]) [address] [facility], [place], [address], 11/20/2023 05:36:37 11/18/19 24 11/20/2023 URINE CULTU RE, ROUTI NE result 1 Commen t Mixed uroge nital morales 25,00 0-50, 000 colon y formi ng units per mL Not Available [facility] ([facility]) [address] [facility], [place], [address], 11/20/2023 05:36:37 11/18/19 24 11/18/2023 urina lysis , dipst ick Leukocytes Negati ve Not Available In-Office Order Internal Use Only DO Not Attach Compendium DO Not Attach Compendium, Do Not Delete/merge, 11/18/2023 11:27:51 11/18/19 24 11/18/2023 urina lysis , dipst ick Nitrite negati ve Not Available In-Office Order Internal Use Only DO Not Attach Compendium DO Not Attach Compendium, Do Not Delete/merge, 11/18/2023 11:27:51 11/18/19 24 11/18/2023 urina lysis , dipst ick Urobilinogen 1 Not Available In-Of fice Order Internal Use Only DO Not Attach Compendium DO Not Attach Compendium, Do Not Delete/merge, 11/18/2023 11:27:51 11/18/19 24 11/18/2023 urina lysis , dipst ick Protein Negati ve Not Available In-Office Order Internal Use Only DO Not Attach Compendium DO Not Attach Compendium, Do Not Delete/merge, 11/18/2023 11:27:51 11/18/19 24 11/18/2023 urina lysis , dipst ick pH 6.0 Not Available In-Office Order Internal Use Only DO Not Attach Compendium DO Not Attach Compendium, Do Not Delete/merge, 11/18/2023 11:27:51 11/18/19 24 11/18/2023 urina lysis , dipst ick Blood Negati ve Not Available In-Office Order Internal Use Only DO Not Attach Compendium DO Not Attach Compendium, Do Not Delete/merge, 11/18/2023 11:27:51 11/18/19 24 11/18/2023 urina lysis , dipst ick Specific [place] 1.015 Not Available In-Off ice Order Internal Use Only DO Not Attach Compendium DO Not Attach Compendium, Do Not Delete/merge, 11/18/2023 11:27:51 11/18/19 24 11/18/2023 urina lysis , dipst ick Ketone Negati ve Not Available In-Office Order Internal Use Only DO Not Attach Compendium DO Not Attach Compendium, Do Not Delete/merge, 11/18/2023 11:27:51 11/18/19 24 11/18/2023 urina lysis , dipst ick Bilirubin Negati ve Not Available In-Office Order Internal Use Only DO Not Attach Compendium DO Not Attach Compendium, Do Not Delete/merge, 11/18/2023 11:27:51 11/18/19 24 11/18/2023 urina lysis , dipst ick Glucose Negati ve Not Available In-Office Order Internal Use Only DO Not Attach Compendium DO Not Attach Compendium, Do Not Delete/merge, 11/18/2023 11:27:51 11/18/19 24 11/18/2023 urina lysis , dipst ick Appearance Clear Not Available In-Offi ce Order Internal Use Only DO Not Attach Compendium DO Not Attach Compendium, Do Not Delete/merge, 11/18/2023 11:27:51 11/18/19 24 11/18/2023 urina lysis , dipst ick Color Yellow Not Available In-Office Order Internal Use Only DO Not Attach Compendium DO Not Attach Compendium, Do Not Delete/merge, 11/18/2023 11:27:51 11/26/19 24 11/28/2023 NUSWA B VAGIN ITIS PLUS (VG+) atopobium vaginae LOW - 0 score Not Available [facility] ([facility]) [address] [facility], [place], [address], 11/29/2023 03:35:33 11/26/19 24 11/28/2023 NUA B VAGIN ITIS PLUS (VG+) bvab 2 LOW - 0 score Not Available [facility] ([facility]) [address] [facility], [place], [address], 11/29/2023 03:35:33 11/26/19 24 11/28/2023 NUA B VAGIN ITIS PLUS (VG+) megasphaera 1 LOW - 0 score Calcu late total score by chuy g the 3 indiv idual bacte rial vagin osis (BV) marke r score s toget her. Total score is inter prete d as follo ws: Total score 0-1: Indic ates the absen ce of BV. Total score 2: Indet ermin ate for BV. Addit ional clini marylu data shoul d be evalu ated to estab malika a diagn osis. Total score 3-6: Indic ates the prese nce of BV. Not Available [facility] ([facility]) [address] [facility], [place], [address], 11/29/2023 03:35:33 11/26/19 24 11/28/2023 NUA B VAGIN ITIS PLUS (VG+) golden albicans, KOLE NEGATI VE negati ve Not Available [facility] ([facility]) [address] [place], [address], 11/29/2023 03:35:33 11/26/19 24 11/28/2023 NUA B VAGIN ITIS PLUS (VG+) golden glabrata, KOLE NEGATI VE negati ve Not Available [facility] ([facility]) [address] [place], [address], 11/29/2023 03:35:33 11/26/19 24 11/29/2023 NUSWA B VAGIN ITIS PLUS (VG+) trich vag by KOLE NEGATI VE negati ve Not Available [facility] ([facility]) [address] [place], [address], 11/29/2023 03:35:33 11/26/19 24 11/29/2023 NUSWA B VAGIN ITIS PLUS (VG+) chlamydia trachomatis, KOLE NEGATI VE negati ve Not Available [facility] ([facility]) [address] [facility], [place], [address], 11/29/2023 03:35:33 11/26/19 24 11/29/2023 NUA B VAGIN ITIS PLUS (VG+) neisseria gonorrhoeae, KOLE NEGATI VE negati ve Not Available [facility] ([facility]) [address] [place], [address], 11/29/2023 03:35:33 02/01/20 24 02/02/2024 LIPID PANEL cholesterol, total 175 mg/dL 100-19 9 Not Available [facility] ([facility]) [address] [place], [address], 02/02/2024 05:10:15 02/01/20 24 02/02/2024 LIPID PANEL triglyceride s 191 mg/dL 0-149 above high normal Not Available [facility] ([facility]) [address] [place], [address], 02/02/2024 05:10:15 02/01/20 24 02/02/2024 LIPID PANEL HDL cholesterol 55 mg/dL >39 Not Available [facility]) [address] [place], [address], 02/02/2024 05:10:15 02/01/20 24 02/02/2024 LIPID PANEL VLDL cholesterol marylu 32 mg/dL 5-40 Not Available [facility] ([facility]) [address] [place], [address], 02/02/2024 05:10:15 02/01/20 24 02/02/2024 LIPID PANEL LDL chol calc ([facility]) 88 mg/dL 0-99 Not Available [facility]) [address] [place], [address], 02/02/2024 05:10:15 02/01/20 24 02/02/2024 COMP. METAB OLIC PANEL (14) glucose 142 mg/dL 70-99 above high normal Not Available [facility] ([facility]) [address] [place], [address], 02/02/2024 05:10:15 02/01/20 24 02/02/2024 COMP. METAB OLIC PANEL (14) BUN 23 mg/dL 8-27 Not Available [facility] ([facility]) [address] [place], [address], 02/02/2024 05:10:15 02/01/20 24 02/02/2024 COMP. METAB OLIC PANEL (14) creatinine 1.84 mg/dL 0.57-1 .00 above high normal Not Available [facility] ([facility]) [address] [place], [address], 02/02/2024 05:10:15 02/01/20 24 02/02/2024 COMP. METAB OLIC PANEL (14) eGFR 30 mL/mi n/1.7 3 >59 below low normal Not Available [facility] ([facility]) [address] [place], [address], 02/02/2024 05:10:15 02/01/20 24 02/02/2024 COMP. METAB OLIC PANEL (14) BUN/creatini ne ratio 13 12-28 Not Available [facility] ([facility]) [address] [place], [address], 02/02/2024 05:10:15 02/01/20 24 02/02/2024 COMP. METAB OLIC PANEL (14) sodium 143 mmol/ L 134-14 4 Not Available [facility] ([facility]) [address] [facility] [place], [address], 02/02/2024 05:10:15 02/01/20 24 02/02/2024 COMP. METAB OLIC PANEL (14) potassium 4.4 mmol/ L 3.5-5. 2 Not Available [facility] ([facility]) [address] [facility], [place], [address], 02/02/2024 05:10:15 02/01/2002/02/2024 COMP. METAB OLIC PANEL (14) chloride 104 mmol/ L 96-106 Not Available [facility] ([facility]) [address] [facility], [place], [address], 02/02/2024 05:10:15 02/01/20 24 02/02/2024 COMP. METAB OLIC PANEL (14) carbon dioxide, total 22 mmol/ L 20-29 Not Available [facility] ([facility]) [address] [facility] [place], [address], 02/02/2024 05:10:15 02/01/20 24 02/02/2024 COMP. METAB OLIC PANEL (14) calcium 9.8 mg/dL 8.7-10 .3 Not Available [facility] ([facility]) [address] [facility] [place], [address], 02/02/2024 05:10:15 02/01/20 24 02/02/2024 COMP. METAB OLIC PANEL (14) protein, total 6.1 g/dL 6.0-8. 5 Not Available [facility] ([facility]) [address] [place], [address], 02/02/2024 05:10:15 02/01/20 24 02/02/2024 COMP. METAB OLIC PANEL (14) albumin 4.0 g/dL 3.9-4. 9 Not Available [facility] ([facility]) [address] [place], [address], 02/02/2024 05:10:15 02/01/20 24 02/02/2024 COMP. METAB OLIC PANEL (14) globulin, total 2.1 g/dL 1.5-4. 5 Not Available [facility] ([facility]) [address] [place], [address], 02/02/2024 05:10:15 02/01/20 24 02/02/2024 COMP. METAB OLIC PANEL (14) bilirubin, total 0.3 mg/dL 0.0-1. 2 Not Available [facility] ([facility]) [address] [place], [address], 02/02/2024 05:10:15 02/01/20 24 02/02/2024 COMP. METAB OLIC PANEL (14) alkaline phosphatase 58 IU/L 44-121 Not Available [facility] ([facility]) [address] [place], [address], 02/02/2024 05:10:15 02/01/20 24 02/02/2024 COMP. METAB OLIC PANEL (14) AST (SGOT) 21 IU/L 0-40 Not Available [facility] ([facility]) [address] [place], [address], 02/02/2024 05:10:15 02/01/20 24 02/02/2024 COMP. METAB OLIC PANEL (14) ALT (SGPT) 11 IU/L 0-32 Not Available [facility] ([facility]) [address] [place], [address], 02/02/2024 05:10:15 02/01/20 24 02/02/2024 TSH TSH 3.800 uIU/m L 0.450- 4.500 Not Available [facility] ([facility]) [address] [place], [address], 02/02/2024 05:10:16 02/01/20 24 02/02/2024 CBC WITH DIFFE RENTI AL/PL ATELE T WBC 7.9 x10e3 /uL 3.4-10 .8 Not Available [facility] ([facility]) [address] [facility], [place], [address], 02/02/2024 05:10:17 02/01/20 24 02/02/2024 CBC WITH DIFFE RENTI AL/PL ATELE T RBC 4.37 x10e6 /uL 3.77-5 .28 Not Available [facility] ([facility]) [address] [place], [address], 02/02/2024 05:10:17 02/01/20 24 02/02/2024 CBC WITH DIFFE RENTI AL/PL ATELE T hemoglobin 13.8 g/dL 11.1-1 5.9 Not Available [facility] ([facility]) [address] [facility], [place], [address], 02/02/2024 05:10:17 02/01/2002/02/2024 CBC WITH DIFFE RENTI AL/PL ATELE T hematocrit 42.9 % 34.0-4 6.6 Not Available [facility] ([facility]) [address] [place], [address], 02/02/2024 05:10:17 02/01/2002/02/2024 CBC WITH DIFFE RENTI AL/PL ATELE T MCV 98 fL 79-97 above high normal Not Available [facility] ([facility]) [address] [place], [address], 02/02/2024 05:10:17 02/01/20 24 02/02/2024 CBC WITH DIFFE RENTI AL/PL ATELE T MCH 31.6 pg 26.6-3 3.0 Not Available [facility] ([facility]) [address] [facility], [place], [address], 02/02/2024 05:10:17 02/01/20 24 02/02/2024 CBC WITH DIFFE RENTI AL/PL ATELE T MCHC 32.2 g/dL 31.5-3 5.7 Not Available [facility] ([facility]) [address] [facility], [place], [address], 02/02/2024 05:10:17 02/01/20 24 02/02/2024 CBC WITH DIFFE RENTI AL/PL ATELE T RDW 13.2 % 11.7-1 5.4 Not Available [facility] ([facility]) [address] [facility], [place], [address], 02/02/2024 05:10:17 02/01/20 24 02/02/2024 CBC WITH DIFFE RENTI AL/PL ATELE T platelets 86 x10e3 /uL 150-45 0 alert low Plate let count verif ied by cheikhi marina kirk of perip heral blood smear . Not Available [facility] ([facility]) [address] [facility], [place], [address], 02/02/2024 05:10:17 02/01/20 24 02/02/2024 CBC WITH DIFFE RENTI AL/PL ATELE T neutrophils 63 % notest ab. Not Available [facility] ([facility]) [address] [facility], [place], [address], 02/02/2024 05:10:17 02/01/20 24 02/02/2024 CBC WITH DIFFE RENTI AL/PL ATELE T lymphs 21 % notest ab. Not Available [facility] ([facility]) [address] [facility], [place], [address], 02/02/2024 05:10:17 02/01/20 24 02/02/2024 CBC WITH DIFFE RENTI AL/PL ATELE T monocytes 14 % notest ab. Not Available [facility] ([facility]) [address] [facility], [place], [address], 02/02/2024 05:10:17 02/01/2002/02/2024 CBC WITH DIFFE RENTI AL/PL ATELE T eos 1 % notest ab. Not Available [facility] ([facility]) [address] [facility], [place], [address], 02/02/2024 05:10:17 02/01/2002/02/2024 CBC WITH DIFFE RENTI AL/PL ATELE T basos 0 % notest ab. Not Available [facility] ([facility]) [address] [facility], [place], [address], 02/02/2024 05:10:17 02/01/2002/02/2024 CBC WITH DIFFE RENTI AL/PL ATELE T neutrophils (absolute) 5.0 x10e3 /uL 1.4-7. 0 Not Available [facility] ([facility]) [address] [facility], [place], [address], 02/02/2024 05:10:17 02/01/2002/02/2024 CBC WITH DIFFE RENTI AL/PL ATELE T lymphs (absolute) 1.6 x10e3 /uL 0.7-3. 1 Not Available [facility] ([facility]) [address] [facility], [place], [address], 02/02/2024 05:10:17 02/01/2002/02/2024 CBC WITH DIFFE RENTI AL/PL ATELE T monocytes(ab solute) 1.1 x10e3 /uL 0.1-0. 9 above high normal Not Available [facility] ([facility]) [address] [place], [address], 02/02/2024 05:10:17 02/01/20 24 02/02/2024 CBC WITH DIFFE RENTI AL/PL ATELE T eos (absolute) 0.1 x10e3 /uL 0.0-0. 4 Not Available [facility] ([facility]) [address] [facility], [place], [address], 02/02/2024 05:10:17 02/01/20 24 02/02/2024 CBC WITH DIFFE RENTI AL/PL ATELE T baso (absolute) 0.0 x10e3 /uL 0.0-0. 2 Not Available [facility] ([facility]) [address] [facility], [place], [address], 02/02/2024 05:10:17 02/01/20 24 02/02/2024 CBC WITH DIFFE RENTI AL/PL ATELE T immature granulocytes 1 % notest ab. Not Available [facility] ([facility]) [address] [facility], [place], [address], 02/02/2024 05:10:17 02/01/20 24 02/02/2024 CBC WITH DIFFE RENTI AL/PL ATELE T immature grans (abs) 0.1 x10e3 /uL 0.0-0. 1 Not Available [facility] ([facility]) [address] [facility], [place], [address], 02/02/2024 05:10:17 02/01/20 24 02/02/2024 CBC WITH DIFFE RENTI AL/PL ATELE T hematology comments: NOTE: Verif ied by idalmis gray nBrayden Not Available [facility] ([facility]) [address] [facility], [place], [address], 02/02/2024 05:10:17 02/04/2002/05/2024 CBC WITH DIFFE RENTI AL/PL ATELE T WBC 6.7 x10e3 /uL 3.4-10 .8 Not Available [facility] ([facility]) [address] [facility], [place], [address], 02/05/2024 10:36:23 02/04/20 24 02/05/2024 CBC WITH DIFFE RENTI AL/PL ATELE T RBC 4.42 x10e6 /uL 3.77-5 .28 Not Available [facility] ([facility]) [address] [place], [address], 02/05/2024 10:36:23 02/04/20 24 02/05/2024 CBC WITH DIFFE RENTI AL/PL ATELE T hemoglobin 13.9 g/dL 11.1-1 5.9 Not Available [facility] ([facility]) [address] [place], [address], 02/05/2024 10:36:23 02/04/20 24 02/05/2024 CBC WITH DIFFE RENTI AL/PL ATELE T hematocrit 43.1 % 34.0-4 6.6 Not Available [facility] ([facility]) [address] [place], [address], 02/05/2024 10:36:23 02/04/20 24 02/05/2024 CBC WITH DIFFE RENTI AL/PL ATELE T MCV 98 fL 79-97 above high normal Not Available [facility] ([facility]) [address] [place], [address], 02/05/2024 10:36:23 02/04/20 24 02/05/2024 CBC WITH DIFFE RENTI AL/PL ATELE T MCH 31.4 pg 26.6-3 3.0 Not Available [facility] ([facility]) [address] [place], [address], 02/05/2024 10:36:23 02/04/20 24 02/05/2024 CBC WITH DIFFE RENTI AL/PL ATELE T MCHC 32.3 g/dL 31.5-3 5.7 Not Available [facility] ([facility]) [address] [place], [address], 02/05/2024 10:36:23 02/04/20 24 02/05/2024 CBC WITH DIFFE RENTI AL/PL ATELE T RDW 13.3 % 11.7-1 5.4 Not Available [facility] ([facility]) [address] [facility], [place], [address], 02/05/2024 10:36:23 02/04/20 24 02/05/2024 CBC WITH DIFFE RENTI AL/PL ATELE T platelets 70 x10e3 /uL 150-45 0 alert low Plate let count verif ied by cheikhi marina kirk of perip heral blood smear . Not Available [facility] ([facility]) [address] [facility], [place], [address], 02/05/2024 10:36:23 02/04/20 24 02/05/2024 CBC WITH DIFFE RENTI AL/PL ATELE T neutrophils 57 % notest ab. Not Available [facility] ([facility]) [address] [facility], [place], [address], 02/05/2024 10:36:23 02/04/20 24 02/05/2024 CBC WITH DIFFE RENTI AL/PL ATELE T lymphs 27 % notest ab. Not Available [facility] ([facility]) [address] [facility], [place], [address], 02/05/2024 10:36:23 02/04/20 24 02/05/2024 CBC WITH DIFFE RENTI AL/PL ATELE T monocytes 14 % notest ab. Not Available [facility] ([facility]) [address] [facility], [place], [address], 02/05/2024 10:36:23 02/04/20 24 02/05/2024 CBC WITH DIFFE RENTI AL/PL ATELE T eos 1 % notest ab. Not Available [facility] ([facility]) [address] [facility], [place], [address], 02/05/2024 10:36:23 02/04/20 24 02/05/2024 CBC WITH DIFFE RENTI AL/PL ATELE T basos 0 % notest ab. Not Available [facility] ([facility]) [address] [place], [address], 02/05/2024 10:36:23 02/04/20 24 02/05/2024 CBC WITH DIFFE RENTI AL/PL ATELE T neutrophils (absolute) 3.8 x10e3 /uL 1.4-7. 0 Not Available [facility] ([facility]) [address] [place], [address], 02/05/2024 10:36:23 02/04/20 24 02/05/2024 CBC WITH DIFFE RENTI AL/PL ATELE T lymphs (absolute) 1.8 x10e3 /uL 0.7-3. 1 Not Available [facility] ([facility]) [address] [place], [address], 02/05/2024 10:36:23 02/04/20 24 02/05/2024 CBC WITH DIFFE RENTI AL/PL ATELE T monocytes(ab solute) 0.9 x10e3 /uL 0.1-0. 9 Not Available [facility] ([facility]) [address] [place], [address], 02/05/2024 10:36:23 02/04/20 24 02/05/2024 CBC WITH DIFFE RENTI AL/PL ATELE T eos (absolute) 0.1 x10e3 /uL 0.0-0. 4 Not Available [facility] ([facility]) [address] [place], [address], 02/05/2024 10:36:23 02/04/20 24 02/05/2024 CBC WITH DIFFE RENTI AL/PL ATELE T baso (absolute) 0.0 x10e3 /uL 0.0-0. 2 Not Available [facility] ([facility]) [address] [place], [address], 02/05/2024 10:36:23 02/04/20 24 02/05/2024 CBC WITH DIFFE RENTI AL/PL ATELE T immature granulocytes 1 % notest ab. Not Available [facility] ([facility]) [address] [facility], [place], [address], 02/05/2024 10:36:23 02/04/20 24 02/05/2024 CBC WITH DIFFE RENTI AL/PL ATELE T immature grans (abs) 0.1 x10e3 /uL 0.0-0. 1 Not Available [facility] ([facility]) [address] [facility], [place], [address], 02/05/2024 10:36:23 02/04/20 24 02/05/2024 CBC WITH DIFFE RENTI AL/PL ATELE T hematology comments: NOTE: Verif ied by idalmis mccarty Not Available [facility] ([facility]) [address] [facility], [place], [address], 02/05/2024 10:36:23 02/11/20 24 02/13/2024 NUSWA B VAGIN ITIS PLUS (VG+) atopobium vaginae LOW - 0 score Not Available [facility] ([facility]) [address] [facility], [place], [address], 02/14/2024 03:35:51 02/11/20 24 02/13/2024 NUSWA B VAGIN ITIS PLUS (VG+) bvab 2 LOW - 0 score Not Available [facility] ([facility]) [address] [facility], [place], [address], 02/14/2024 03:35:51 02/11/20 24 02/13/2024 NUSWA B VAGIN ITIS PLUS (VG+) megasphaera 1 LOW - 0 score Calcu late total score by chuy rockwell the 3 indiv idual bacte rial vagin osis (BV) mke r score s toget her. Total score is inter prete d as follo ws: Total score 0-1: Indic ates the absen ce of BV. Total score 2: Indet ermin ate for BV. Addit ional clini marylu data shoul d be evalu ated to estab malika a diagn osis. Total score 3-6: Indic ates the prese nce of BV. Not Available [facility] ([facility]) [address] [place], [address], 02/14/2024 03:35:51 02/11/20 24 02/13/2024 NUSWA B VAGIN ITIS PLUS (VG+) golden albicans, KOLE NEGATI VE negati ve Not Available [facility] ([facility]) [address] [place], [address], 02/14/2024 03:35:51 02/11/20 24 02/13/2024 NUSWA B VAGIN ITIS PLUS (VG+) golden glabrata, KOLE NEGATI VE negati ve Not Available [facility] ([facility]) [address] [place], [address], 02/14/2024 03:35:51 02/11/20 24 02/14/2024 NUSWA B VAGIN ITIS PLUS (VG+) trich vag by KOLE NEGATI VE negati ve Not Available [facility] ([facility]) [address] [place], [address], 02/14/2024 03:35:51 02/11/20 24 02/14/2024 NUSWA B VAGIN ITIS PLUS (VG+) chlamydia trachomatis, KOLE NEGATI VE negati ve Not Available [facility] ([facility]) [address] [place], [address], 02/14/2024 03:35:51 02/11/20 24 02/14/2024 NUSWA B VAGIN ITIS PLUS (VG+) neisseria gonorrhoeae, KOLE NEGATI VE negati ve Not Available [facility] ([facility]) [address], [place], [address], 02/14/2024 03:35:51 11/03/19 24 11/03/2023 DEXA No observ ation record ed. [address] [place], [address], 11/10/2023 12:07:22 12/10/19 24 12/10/2023 MAMMO , scree angi, digit al, bilat eral No observ ation record ed. [email or web address] [place], [address], 12/15/2023 10:21:25 Result Notes None recorded. Problems Name Problem SNOMED Code Status Onset Date Resolution Date Notes Provider Name and Address Organization Details Recorded Time Essential hypertens ion 63941565 Active 2021 Nona [place] [facility] 4 15:56:47 Hypothyro idism 30485766 Active 2021 Nona Arroyo [place] [facility] 4 15:56:47 Chronic obstructi ve pulmonary disease 40174338 Active 2021 sees pulmo [place] [facility] 4 15:56:47 Hyperlipi demia 05794446 Active 2021 Nona [place] [facility] 4 15:56:47 Chronic renal failure 88937088 Active 2021 sees nephro/[place] Steph [place] [facility] 4 15:56:47 Bipolar disorder 73331994 Active 2021 with PTSD-sees Dr.Habib [place] [facility] 4 15:56:47 Hydroceph alus 916087435 Active 2021 s/p shunt 2015- sees neurologi st [place] [facility] 4 15:56:47 Bilateral arthritis of knees 069584490079 9108 Active 2021 with back pain /chronic pain [place] [facility] 4 15:56:47 Osteoporo sis 43178241 Active 2021 dexa- 11/02 Sharon Padron MD Attn: Yariel rockwell,[address] [facility], [place], [address], [place] [facility] 4 14:15:16 Calcifica tion of coronary artery 013734678 Active [address] done by [facility] showed extensive calcifica tion-sees cardio Nona [place] [facility] 4 15:56:47 Occult blood detected in feces 35885253 Active 2021 seen by GI Nona Cruz [place] [facility] 4 15:56:47 Rheumatoi d factor detected 497119019 Active 2022 referred to rheumat- has apt in 07/2024 Nona Jayeshdominic [place] [facility] 4 15:56:47 Atrophic vaginitis 66222024 Active 2023 NONA JACKSON MD Attn: Yariel rockwell,[address] [facility], [place], [address], [place] [facility] 4 11:31:18 Recurrent urinary tract infection 869539291 Active 2023 NONA JACKSON MD Attn: Yariel rockwell,[address] [place], [address], [place] [facility] 4 11:31:21 Isolated thrombocy topenia 098676186 Active 2023 Sharon Padron MD Attn: Yariel rockwell,[address] [facility], [place], [address], [place] [facility] 4 12:36:10 Type 2 diabetes mellitus 67532987 Active sees endo -Dr.Tae [place] [facility] 4 15:56:47 Urinary incontine cte 868457749 Active sees urologist Nona Arroyo lizbeth cali, [facility] 4 15:56:47 Notes:Some problems listed i n Documents: #[id number], #[id number] could not be added to this patient's chart. Please review these documents and add these problems to the patient's chart manually as needed. Problem Notes None recorded. Procedures Surgical History Date Name Laterality Status Provider Name and Address Organization Details Recorded Time 12/10/19 24 Date of Last Mammogram completed Juani Toure MA [facility] 02/01/2024 11:26:11 07/12/18 92 Total hysterectomy completed Eren Reardon MA [facility] 10/19/2016 14:26:01 07/12/18 82 Cholecystectomy completed Eren Reardon MA [facility] 10/19/2016 14:26:17 07/12/18 76 Appendectomy completed Eren Reardon MA [facility] 10/19/2016 14:25:41 Imaging Results Imaging Date Name Status LastModified by Organiz ation Details LastModified Time 11/03/2023 DEXA completed [address] [place], [address], 11/10/2023 12:07:22 12/10/2023 MAMMO, screening, digital, bilateral completed [address] [place], [address], 12/15/2023 10:21:25 Procedure Notes None recorded. Medical Equipment None Reported. Allergies Allergen ID Allergen Name Allergen Category Reaction Reaction Severity Criticality Documentation Date Start Date Code Code System Note Provider Name and Address Organization Details Recorded Time [id number] Demerol medicatio n Not available Not available Not available 06/18/2014 90610 1 RxNorm Not Available Not Available Not Available [id number] 2824e Tegretol medicatio n Not available Not available Not available 06/18/2014 26617 9 RxNorm Not Available Not Available Not Available [id number] Product containin g glucocort icoid (product) medicatio n vomiting Not available Not available 10/19/2016 09221 6006 SNOMED Not Available Not Available Not Available Medications Name Sig Start Date Stop Date Status Note LastModified by Organization Details LastModified Time comfort ez mis [id number] 08/11 completed Not Available Not Available Not Available fluoxetin e 40 mg capsule 08/07 completed Not Available Not Available Not Available cyclobenz aprine 10 mg tablet TAKE 1 TABLET BY MOUTH AT BEDTIME 08/11 completed Not Available Not Available Not Available amoxicill in 500 mg capsule 08/07 completed Not Available Not Available Not Available furosemid e 40 mg tablet TAKE 1 TABLET BY MOUTH TWICE DAILY active Not Available Not Available No t Available methocarb aakash 500 mg tablet 08/07 completed Not Available Not Available Not Available metformin 500 mg tablet 08/11 completed Not Available Not Available Not Available terconazo le 0.4 % vaginal cream 1 APPLICAT ORFUL DIRECTED EVERY DAY AT BEDTIME FOR 7 DAYS 01/31 completed Not Available Not Available Not Available promethaz ine-DM 6.25 mg-15 mg/5 mL oral syrup 08/07 completed Not Available Not Available Not Available doxycycli ne hyclate 100 mg capsule TAKE 1 CAPSULE BY MOUTH TWICE DAILY 09/29 completed Not Available Not Available Not Available cefuroxim e axetil 250 mg tablet TAKE 1 TABLET BY MOUTH TWICE A DAY FOR 10 DAYS 06/25 completed Not Available Not Available Not Available atorvasta tin 20 mg tablet Take 1 tablet by oral route. active Not Available Not Available No t Available sulfasala zine 500 mg tablet TAKE 1 TABLET BY MOUTH EVERY DAY active Not Available Not Available No t Available albuterol sulfate 2.5 mg/3 mL (0.083 %) solution for nebulizat ion 08/11 completed Not Available Not Available Not Available polyethyl cecily glycol 3350 17 gram oral powder packet 08/07 completed Not Available Not Available Not Available azithromy shobha 250 mg tablet TAKE 2 TABLETS BY MOUTH TODAY, THEN TAKE 1 TABLET DAILY FOR 4 DAYS DIRECTED 11/17 completed Not Available Not Available Not Available fluconazo le 150 mg tablet 150 MG ORALLY ONCE A SINGLE DOSE 01/31 completed Not Available Not Available Not Available citalopra m 10 mg tablet 08/07 completed Not Available Not Available Not Available ranitidin e 300 mg tablet TAKE 1 TABLET BY MOUTH AT BEDTIME 08/07 completed Not Available Not Available Not Available clarithro mycin 500 mg tablet 08/07 completed Not Available Not Available Not Available hydrocodo ne 5 mg-acetam inophen 325 mg tablet active Not Available Not Available Not Available senna 8.6 mg tablet Take 2 tablets twice a day by oral route. active Not Available Not Available No t Available meloxicam 15 mg tablet TAKE 1/2 TABLET BY ORAL ROUTE 2 TIMES EVERY DAY 08/07 completed Not Available Not Available Not Available famotidin e 40 mg tablet TAKE 1 TABLET BY MOUTH AT BEDTIME 2023 active Not Available Not Available Not Avai lable prednison e 20 mg tablet 08/07 completed Not Available Not Available Not Available alendrona te 70 mg tablet TAKE 1 TABLET BY MOUTH EVERY WEEK IN THE MORNING AT LEAST 30 MINUTES BEFORE FOOD 2023 active Not Available Not Available Not Avai lable dexametha sone 6 mg tablet 08/07 completed Not Available Not Available Not Available quetiapin e 200 mg tablet 08/07 completed Not Available Not Available Not Available terconazo le 0.8 % vaginal cream INSERT 1 APPLICAT ORFUL VAGINALL Y EVERY DAY AT BEDTIME FOR 3 DAYS active Not Available Not Available No t Available glipizide ER 5 mg tablet, extended release 24 hr 11/04 completed not taking Not Available Not Available Not Available naproxen 250 mg tablet 08/07 completed Not Available Not Available Not Available potassium chloride ER 10 mEq tablet,ex tended release TAKE 1 TABLET BY MOUTH EVERY DAY WITH FOOD 08/07 completed Not Available Not Available Not Available ciproflox acin 250 mg tablet TAKE 1 TABLET BY MOUTH EVERY 12 HOURS 09/29 completed Not Available Not Available Not Available amlodipin e 5 mg tablet TAKE 1 TABLET BY MOUTH DAILY 2023 active Not Available Not Available Not Avai lable trimethop rim 100 mg tablet TAKE 1 TABLET BY MOUTH EVERY DAY active Not Available Not Available No t Available divalproe x 500 mg tablet,de layed release TAKE 2 TABLETS BY MOUTH TWICE A DAY. active Not Available Not Available No t Available ciproflox acin 500 mg tablet TAKE 1 TABLET BY MOUTH TWICE DAILY FOR 7 DAYS 08/07 completed Not Available Not Available Not Available sulfameth oxazole 800 mg-trimet hoprim 160 mg tablet 09/17 completed complete d Not Available Not Available Not Available tramadol 50 mg tablet 08/07 completed Not Available Not Available Not Available quetiapin e 100 mg tablet 08/07 completed Not Available Not Available Not Available pantopraz ole 20 mg tablet,de layed release 08/07 completed Not Available Not Available Not Available meloxicam 7.5 mg tablet 08/07 completed Not Available Not Available Not Available oxycodone -acetamin ophen 5 mg-325 mg tablet active Not Available Not Available Not Available methenami ne hippurate 1 gram tablet TAKE 1 TABLET BY MOUTH 2 TIMES PER DAY, TAKE 1000 MG OF VITAMIN C WITH EACH DOSE active Not Available Not Available No t Available amoxicill in 875 mg tablet TAKE 1 TABLET BY MOUTH TWICE A DAY 03/02 completed Not Available Not Available Not Available citalopra m 20 mg tablet active Not Available Not Available Not Available potassium chloride ER 20 mEq tablet,ex tended release(p art/cryst ) 08/22 completed Not Available Not Available Not Available lorazepam 0.5 mg tablet 08/07 completed Not Available Not Available Not Available tamsulosi n 0.4 mg capsule urologsi t active Not Available Not Available No t Available dicyclomi ne 20 mg tablet 08/07 completed Not Available Not Available Not Available baclofen 10 mg tablet 08/11 completed Not Available Not Available Not Available cephalexi n 500 mg capsule TAKE 1 CAPSULE BY MOUTH TWICE DAILY FOR 7 DAYS FOR UTI 05/05 completed Not Available Not Available Not Available ferrous sulfate 325 mg (65 mg iron) tablet TAKE 1 TABLET BY MOUTH DAILY 08/07 completed Not Available Not Available Not Available levothyro xine 125 mcg tablet TAKE 1 TABLET BY MOUTH DAILY 08/07 completed Not Available Not Available Not Available neomycin- polymyxin -dexameth 3.5 mg/mL-10, 000 unit/mL-0 .1% eye drops PLACE 1 DROP INTO BOTH EYES TWICE DAILY FOR 2 WEEKS 09/29 completed Not Available Not Available Not Available nystatin 100,000 unit/gram topical cream APPLY TO AFFECTED AREA TWICE A DAY active Not Available Not Available No t Available prednison e 50 mg tablet 08/07 completed Not Available Not Available Not Available Cranberry Concentra te 140 mg-100 mg capsule TAKE 1 BY ORAL ROUTE ONCE 08/07 completed Not Available Not Available Not Available levothyro xine 150 mcg tablet TAKE 1 TABLET BY MOUTH EVERY MORNING ON EMPTY STOMACH 2023 active Not Available Not Available Not Avai lable diclofena c potassium 50 mg tablet Take 1 tablet by mouth at bedtime with food as needed 08/07 completed Not Available Not Available Not Available aspirin 81 mg chewable tablet CHEW 1 TABLET(S ) EVERY DAY BY ORAL ROUTE AFTER MEALS FOR 30 DAYS. active Not Available Not Available No t Available diclofena c sodium 75 mg tablet,de layed release 08/07 completed Not Available Not Available Not Available monteluka st 10 mg tablet 08/22 completed Not Available Not Available Not Available hydroxyzi ne HCl 25 mg tablet Take 1 tablet every day by oral route at bedtime. active Not Available Not Available No t Available pravastat in 20 mg tablet 08/07 completed Not Available Not Available Not Available mupirocin 2 % topical ointment APPLY TO AFFECTED AREA 3 TIMES A DAY 06/25 completed Not Available Not Available Not Available furosemid e 20 mg tablet Take 1 tablet by oral route every day 08/07 completed Not Available Not Available Not Available hydroxych loroquine 200 mg tablet active Not Available Not Available Not Available levofloxa shobha 500 mg tablet TAKE 1 TABLET BY MOUTH EVERY DAY 08/07 completed Not Available Not Available Not Available levofloxa shobha 750 mg tablet TAKE 1 TABLET BY MOUTH EVERY DAY FOR 5 DAYS active Not Available Not Available No t Available methylpre dnisolone 4 mg tablets in a dose pack 08/07 completed Not Available Not Available Not Available albuterol sulfate HFA 90 mcg/actua tion aerosol inhaler 08/11 completed Not Available Not Available Not Available ipratropi um bromide 42 mcg (0.06 %) nasal spray 08/07 completed Not Available Not Available Not Available ketoconaz ole 2 % topical cream 08/11 completed Not Available Not Available Not Available cefdinir 300 mg capsule TAKE 1 CAPSULE BY MOUTH EVERY 12 HOURS 01/31 completed Not Available Not Available Not Available fluticaso ne propionat e 50 mcg/actua tion nasal spray,kaleb pension SPRAY 2 SPRAYS INTO EACH NOSTRIL DAILY active Not Available Not Available No t Available lisinopri l 2.5 mg tablet 08/22 completed Not Available Not Available Not Available ipratropi um bromide 21 mcg (0.03 %) nasal spray ADMINIST ER 2 SPRAYS INTO EACH NOSTRIL EVERY 12 HOURS. active Not Available Not Available No t Available loratadin e 10 mg tablet TAKE 1 TABLET BY MOUTH DAILY 2023 active Not Available Not Available Not Avai labjacques risperido ne 0.5 mg tablet active Not Available Not Available Not Available amoxicill in 875 mg-potass ium clavulana te 125 mg tablet TAKE 1 TABLET BY MOUTH 2 TIMES A DAY FOR 14 DAYS. 01/31 completed Not Available Not Available Not Available amoxicill in 500 mg-potass ium clavulana te 125 mg tablet TAKE 1 TABLET BY MOUTH EVERY 12 HOURS FOR 7 DAYS 11/17 completed Not Available Not Available Not Available buspirone 15 mg tablet TAKE 1 TABLET BY MOUTH THREE TIMES DAILY active Not Available Not Available No t Available Restasis 0.05 % eye drops in a dropperet te INSTILL 1 DROP INTO BOTH EYES TWICE A DAY active Not Available Not Available No t Available Premarin 0.625 mg/gram vaginal cream APPLY VAGINALL Y TWICE WEEKLY. SKIP 1 WEEK THEN REPEAT CYCLE 06/25 completed Not Available Not Available Not Available Alcohol Prep Pads 08/07 completed Not Available Not Available Not Available albuterol sulfate concentra te 2.5 mg/0.5 mL solution for nebulizat ion 08/07 completed Not Available Not Available Not Available nitrofura ntoin monohydra te/macroc rystals 100 mg capsule TAKE 1 CAP BY MOUTH 2 TIMES PER DAY FOR 7 DAYS MUST ADMINIST ER WITH A MEAL/REJI D 05/05 completed Not Available Not Available Not Available Enablex 15 mg tablet,ex tended release 08/07 completed Not Available Not Available Not Available ibandrona te 150 mg tablet 08/07 completed Not Available Not Available Not Available Novofine Autocover 30 gauge x 1/3 needle 08/11 completed Not Available Not Available Not Available Boostrix Tdap 2.5 Lf unit-8 mcg-5 Lf/0.5 mL intramusc ular syringe 08/07 completed Not Available Not Available Not Available fenofibra te 160 mg tablet TAKE 1 TABLET BY MOUTH DAILY 08/07 completed Not Available Not Available Not Available pregabali n 50 mg capsule TAKE 1 CAPSULE BY MOUTH TWICE A DAY 03/02 completed Not Available Not Available Not Available pregabali n 75 mg capsule Take 1 capsule twice a day by oral route. 2022 active Not Available Not Available Not Avai lable BD Ultra-Fin e Short Pen Needle 31 gauge x 5/16 08/11 completed Not Available Not Available Not Available Januvia 50 mg tablet TAKE 1 TABLET BY MOUTH IN THE MORNING 08/11 completed Not Available Not Available Not Available Lantus Solostar U-100 Insulin 100 unit/mL (3 mL) subcutane ous pen INJECT 10 UNITS INTO THE SKIN NIGHTLY active Not Available Not Available No t Available Humalog KwikPen (U-100) Insulin 100 unit/mL subcutane ous INJECT 28 UNITS UNDER THE SKIN BEFORE EACH MEAL + SLIDING SCALE (MAX 100 UNITS PER DAY) active Not Available Not Available No t Available All Day Allergy (cetirizi ne) 10 mg tablet TAKE 1 TABLET BY MOUTH DAILY 08/07 completed Not Available Not Available Not Available diclofena c 1 % topical gel APPLY 2 GRAMS TO THE AFFECTED AREA(S) BY TOPICAL ROUTE 3 TIMES PER DAY active Not Available Not Available No t Available Toviaz 8 mg tablet,ex tended release 08/07 completed Not Available Not Available Not Available OneTouch Verio test strips 4 TIMES A DAY active Not Available Not Available No t Available Myrbetriq 50 mg tablet,ex tended release 08/07 completed Not Available Not Available Not Available Spiriva Respimat 2.5 mcg/actua tion solution for inhalatio n 11/04 completed Not Available Not Available Not Available Procto-Me d HC 2.5 % topical cream perineal applicato r 08/07 completed Not Available Not Available Not Available Yuvafem 10 mcg vaginal tablet INSERT 1 TABLET VAGINALL Y TWICE A WEEK active Not Available Not Available No t Available Linzess 72 mcg capsule TAKE 1 CAPSULE BY MOUTH EVERY DAY active Not Available Not Available No t Available Trelegy Ellipta 100 mcg-62.5 mcg-25 mcg powder for inhalatio n TAKE 1 PUFF BY MOUTH EVERY DAY active Not Available Not Available No t Available Imvexxy Maintenan ce Pack 4 mcg vaginal insert active Not Available Not Available Not Available BD Akanksah 2nd Gen Pen Needle 32 gauge x USE TO INJECT INSULIN 4X DAILY. active Not Available Not Available No t Available OneTouch Delica Plus Lancet 33 gauge USE 1 LANCET TO TEST BLOOD GLUCOSE 3 TIMES DAILY active Not Available Not Available No t Available OneTouch Delica Plus Lancet 30 gauge 4 TIMES A DAY active Not Available Not Available No t Available OneTouch Verio Reflect Meter USE DIRECTED TO TEST BLOOD GLUCOSE 3 TIMES DAILY 09/29 completed Not Available Not Available Not Available Ozempic 1 mg/dose (4 mg/3 mL) subcutane ous pen injector INJECT 1 MG SUBCUTAN EOUSLY ONCE A WEEK active not using Not Available Not Available Not Available Ozempic 0.25 mg or 0.5 mg (2 mg/3 mL) subcutane ous pen injector INJECT 0.25 MG SUBCUTAN EOUSLY WEEKLY FOR 4 WEEKS, THEN 0.5MG WEEKLY FOR 4 WEEKS 01/31 completed Not Available Not Available Not Available Klayesta 100,000 unit/gram topical powder APPLY TO THE AFFECTED AREA THREE TIMES DAILY FOR 14 DAYS. active Not Available Not Available No t Available Vitals Date Recorded Body height Provider Name an d Address Organization Details Last Updated DateTime 11/26/2023 175.26 cm JACK [facility]ard [facility] 11/25 11:52:15 Date Recorded Heart rate Provider Name an d Address Organization Details Last Updated DateTime 11/26/2023 81 /min Yanira Lo MA [facility] 11/25 11:53:53 Date Recorded Oxygen saturation Oxygen saturation in Arterial blood by Pulse oximetry Provider Name and Address Organization Details Last Updated DateTime 11/26/2023 95 % 95 % Yanira Lo MA [facility] 11/26/2023 11:54:35 Date Recorded Body temperature Provider Name a nd Address Organization Details Last Updated DateTime 11/26/2023 97.7 [degF] Yanira Lo MA [facility] 11/26/2023 11:55:37 Date Recorded Respiratory rate Provider Name a nd Address Organization Details Last Updated DateTime 11/26/2023 14 /min Yanira Lo MA [facility] 11/26/2023 11:55:55 Date Recorded Body height Provider Name an d Address Organization Details Last Updated DateTime 02/01/2024 175.26 cm Juani Toure MA [facility] 01/31 11:10:16 Date Recorded Body mass index (BMI) Body weight Provider Name and Address Organization Details Last Updated DateTime 02/01/2024 34.5 kg/m2 596603.46 g Juani Nixon JACK [facility] 02/01/2024 11:23:39 Date Recorded Body temperature Provider Name a nd Address Organization Details Last Updated DateTime 02/01/2024 95.9 [degF] Juani Nixon JACK [facility] 02/01/2024 11:23:43 Date Recorded Heart rate Provider Name an d Address Organization Details Last Updated DateTime 02/01/2024 86 /min Juani Toure MA [facility] 01/31 11:25:05 Date Recorded Body height Provider Name an d Address Organization Details Last Updated DateTime 02/11/2024 175.26 cm Yanira Lo MA [facility] 02/10 11:32:38 Date Recorded Oxygen saturation Oxygen saturation in Arterial blood by Pulse oximetry Provider Name and Address Organization Details Last Updated DateTime 02/11/2024 96 % 96 % Yanira Lo MA [facility] 02/11/2024 11:35:19 Date Recorded Heart rate Provider Name an d Address Organization Details Last Updated DateTime 02/11/2024 85 /min Yanira Lo [place] [facility] 02/10 11:36:50 Date Recorded Respiratory rate Provider Name a nd Address Organization Details Last Updated DateTime 02/11/2024 16 /min Yanira Lo [place] [facility] 02/11/2024 11:36:52 Date Recorded Body temperature Provider Name a nd Address Organization Details Last Updated DateTime 02/11/2024 97.7 [degF] Yanira Lo [place] [facility] 02/11/2024 11:37:29 Date Recorded Body height Provider Name an d Address Organization Details Last Updated DateTime 05/05/2024 175.26 cm Michelle Gilliam MA [facility] 12:08:14 Date Recorded Body mass index (BMI) Body weight Provider Name and Address Organization Details Last Updated DateTime 05/05/2024 33.2 kg/m2 948338.28 g Michelle Gilliam [place] [facility] 05/05/2024 12:09:44 Date Recorded Heart rate Respiratory rate Provider N olu and Address Organization Details Last Updated DateTime 05/05/2024 96 /min 16 /min Michelle Gilliam [place] [facility] 05/05/2024 12:09:51 Date Recorded Body temperature Provider Name a nd Address Organization Details Last Updated DateTime 05/05/2024 97.9 [degF] Michelle Gliliam [place] [facility] 2023 12:09:54 Date Recorded Oxygen saturation Oxygen saturation in Arterial blood by Pulse oximetry Provider Name and Address Organization Details Last Updated DateTime 05/05/2024 98 % 98 % Michelle Gilliam [place] [facility] 05/05/2024 12:09:57 Date Recorded Body height Provider Name an d Address Organization Details Last Updated DateTime 07/24/2024 175.26 cm JACK V[facility] - [facility] 07/24/19 15:23:59 Date Recorded Respiratory rate Provider Name a nd Address Organization Details Last Updated DateTime 07/24/2024 14 /min Bouchra Gaytan [place] [facility] 07/24/19 15:30:28 Date Recorded Body temperature Provider Name a nd Address Organization Details Last Updated DateTime 07/24/2024 97.2 [degF] Bouchra Gaytan MA [facility] 025 15:30:37 Date Recorded Oxygen saturation Oxygen saturation in Arterial blood by Pulse oximetry Provider Name and Address Organization Details Last Updated DateTime 07/24/2024 97 % 97 % Bouchra Gaytan JACK [facility] 07/24/2024 15:31:41 Date Recorded Heart rate Provider Name an d Address Organization Details Last Updated DateTime 07/24/2024 72 /min Bouchra Gaytan MA [facility] 07/24/19 15:33:07 Date Recorded Systolic blood pressure Diastolic blood pressure Provider Name and Address Organization Details Last Updated DateTime 11/26/2023 114 mm[Hg] 75 mm[Hg] Yanira Lo MA [facility] 11/26/2023 11:53:48 Date Recorded Systolic blood pressure Diastolic blood pressure Provider Name and Address Organization Details Last Updated DateTime 02/01/2024 127 mm[Hg] 81 mm[Hg] Juani Toure MA [facility] 02/01/2024 11:25:02 Date Recorded Systolic blood pressure Diastolic blood pressure Provider Name and Address Organization Details Last Updated DateTime 02/11/2024 131 mm[Hg] 80 mm[Hg] Yanira Lo MA [facility] 02/11/2024 11:34:12 Date Recorded Systolic blood pressure Diastolic blood pressure Provider Name and Address Organization Details Last Updated DateTime 05/05/2024 108 mm[Hg] 66 mm[Hg] Michelle Gilliam MA [facility] 05/05/2024 12:11:52 Date Recorded Systolic blood pressure Diastolic blood pressure Provider Name and Address Organization Details Last Updated DateTime 07/24/2024 120 mm[Hg] 69 mm[Hg] Bouchra JACK Gaytan [facility] 07/24/2024 15:33:02 Social History Question Answer Notes LastModified by Organization Details LastModified Time Tobacco Smoking Status Former Smoker cigarettes JACK Vogel [facility] 08/07/2021 10:38:06 What Is Your Level Of Alcohol Consumption? None [id number] Information not available 05/14/2020 Are You Blind Or Do You Have Difficulty Seeing? Yes Glasses Information not available 08/07/2021 What Is Your Level Of Caffeine Consumption? Moderate Information not available 08/07/2021 In The 14 Days Before Symptom Onset, Have You Had Close Contact With A Laboratory-con firmed COVID-19 While That Case Was Ill? No Information not available 08/07/2021 In The 14 Days Before Symptom Onset, Have You Had Close Contact With A Person Who Is Under Investigation For COVID-19 While That Person Was Ill? No Information not available 08/07/2021 Have You Been To An Area Known To Be High Risk For COVID-19? No Lives In Half-Way Information not available 09/17/2021 Are You Currently Employed? No Disabled Information not available 08/07/2021 Are You Deaf Or Do You Have Serious Difficulty Hearing? Yes Both Ears Information not available 08/07/2021 What Type Of Diet Are You Following? REGULAR Low Carb [email or web address] Information not available 08/22/2021 What Is The Highest Grade Or Level Of School You Have Completed Or The Highest Degree You Have Received? [id number] Information not available 08/07/2021 Are There Any Guns Present In Your Home? No Information not available 08/07/2021 What Was The Date Of Your Most Recent Tobacco Screening? 07/24/2024 Information not available 07/24/2024 What Is Your Relationship Status? Information not available 08/07/2021 Do You Use Your Seat Belt Or Car Seat Routinely? Yes Information not available 08/07/2021 Are You Sexually Active? No [email or web address] Information not available 11/18/2023 Do You Have Smoke And Carbon Monoxide Detectors In Your Home? Yes Information not available 08/07/2021 Do You Feel Stressed (tense, Restless, Nervous, Or Anxious, Or Unable To Sleep At Night)? [id number] Was Worse In Group Home Information not available 07/24/2024 Do You Use Any Illicit Or Recreational Drugs? No Information not available 08/07/2021 Do You Use Sunscreen Routinely? No Information not available 08/07/2021 Has Tobacco Cessation Counseling Been Provided? No Information not available 08/07/2022 How Many Years Have You Smoked Tobacco? 20 [id number] Information not available 05/14/2020 What Type Of Noise Exposure Are You Exposed To? NoExposureToExcessive Noise [email or web address] Information not available 07/20/2023 Do You Or Have You Ever Used Any Other Forms Of Tobacco Or Nicotine? No Information not available 08/07/2021 Sex: Female Functional Status Question Answer Note LastModified by Organizat ion Details LastModified Time Are you able to care for yourself? No gets assiatance Information not available 08/07/2021 What is your exercise level? None Information not available 08/07/2021 Mental Status None recorded. Family History Relationship Description Onset Age of this Age Resolved Age Notes LastModified by Organization Details LastModified Time Father Alcohol abuse Not available 10/19 14:29:52 Father Asthma Not available 10/19/2016 14:30:14 Father Cerebrovascu lar accident Not available 14:30:55 Father Dementia Not availab le 10/19/2016 14:31:29 Father Depressive disorder Not available 10/19 14:31:44 Father Diabetes mellitus Not available 10/19 14:32:08 Sister Alcohol abuse Not available 10/19 14:29:52 Sister Alcohol abuse Not available 10/19 14:29:52 Sister Suspected breast cancer Not available 10/19 14:30:40 Sister Diabetes mellitus Not available 10/19 14:32:08 Sister Diabetes mellitus Not available 10/19 14:32:08 Brother Alcohol abuse Not available 10/19 14:29:52 Mother Coronary arterioscler osis Not available 10/19 14:31:16 Mother Heart disease Not available 10/19 14:32:26 Mother Hypertensive disorder Not available 04/10 /2017 14:32:40 Medical History Condition Response Coronary Artery Disease N Other N High Blood Pressure Y Atrial Fibrillation N Kidney or Bladder Problems Y Thyroid Problems Y GI Problems Y Depression N COPD Y Blood Clots N Skin Problems N Anemia N Heart Attack (AZ) N Anxiety Disorder Y Diabetes Y Muscle, Joint, or Bone Problems Y Seizures/Epilepsy Y Acid Reflux (GERD) N Cancer N Stroke N Asthma N Allergies Y High Cholesterol N Hepatitis N Liver Disease N Headaches N Heart Failure N Osteoporosis N Gynecological History Statement/Question Response Current Control Method Hysterectom y Date of Last Mammogram 12/10/2023 Date of LMP Obstetrics History GPAL:G 0 P 0 0 0 0 Type Value Induced 0 Spontaneous 0 Total 0 Immunizations Vaccine Type Date Status Note Provider Nam e and Address Organization Details Recorded Time COVID-19, mRNA, LNP-S, PF, 100 mcg/0.5mL dose or 50 mcg/0.25mL dose 1 completed NONA JACKSON MD Attn: Accounting,[address] [place], [place], [address] [place] [address] [place] [facility] 11/18/2023 11:09:36 COVID-19, mRNA, LNP-S, PF, 100 mcg/0.5mL dose or 50 mcg/0.25mL dose 1 completed NONA JACKSON MD Attn: Accounting[address] [place], [place], [address] [place] [address] - [facility] 11/18/2023 11:09:36 Influenza, split virus, quadrivalent, preservative 1 completed NONA JACKSON MD Attn: Accounting,[address] [place], [place], [address] [place] [address], [place] [facility] 11/18/2023 11:13:35 Influenza, split virus, quadrivalent, preservative 0 completed NONA JACKSON MD Attn: Accounting,[address] [place], [place], [address] [place] [address], [facility] - [facility] 11/18/2023 11:09:36 Influenza, split virus, quadrivalent, preservative 9 completed NONA JACKSON MD Attn: Accounting,[address] [place], [address] [place] [address] [place] [facility] 11/18/2023 11:09:36 Influenza, adjuvanted, trivalent, PF 9 completed NONA JACKSON MD Attn: Accounting,[address] [facility], [place], [place], [address] [place] [address] - [facility] 11/18/2023 11:09:36 SARS-COV-2 (COVID-19) vaccine, UNSPECIFIED 1 completed NONA JACKSON MD Attn: Accounting,[address] [facility], [place], [place], [address] [place] [address], [facility] - [facility] 11/18/2023 11:09:36 pneumococcal polysaccharide PPV23 0 completed NONA JACKSON MD Attn: Accounting,[address] [facility], [place], [place], [address] [place] [address] - [facility] 11/18/2023 11:09:36 pneumococcal polysaccharide PPV23 1 completed NONA JACKSON MD Attn: Accounting,[address] [facility], [place], [place], [address] [place] [address], [facility] - [facility] 11/18/2023 11:13:35 influenza, unspecified formulation 9 completed NONA JACKSON MD Attn: Accounting,[address] [facility], [place], [place], [address] [place] [address], [facility] - [facility] 11/18/2023 11:09:37 Tdap 7 completed NONA JACKSON MD Attn: Accounting,[address] [place], [place], [address] [place] [address], [facility] - [facility] 11/18/2023 11:09:37 Pneumococcal conjugate PCV 13 7 completed NONA JACKSON MD Attn: Accounting,[address] [facility], [place], [place], [address] [place] [address], [facility] - [facility] 11/18/2023 11:09:37 TST-PPD intradermal 0 completed NONA JACKSON MD Attn: Accounting,[address] [place], [place], [address] [place] [address] - [facility] 11/18/2023 11:09:37 Influenza, high-dose, trivalent, PF 4 completed NONA JACKSON MD Attn: Accounting,[address] [facility], [place], [place], [address] [place] [address], [facility] - [facility] 11/18/2023 11:13:35 Influenza, split virus, trivalent, PF 5 completed NONA JACKSON MD Attn: Accounting,[address] [facility], [place], [place], [address] [place] [address], [facility] - [facility] 11/18/2023 11:09:37 Influenza, split virus, trivalent, PF 6 completed NONA JACKSON MD Attn: Accounting,[address] [facility], [place], [place], [address] [place] [address], [facility] - [facility] 11/18/2023 11:09:37 Influenza, split virus, trivalent, PF 7 completed NONA JACKSON MD Attn: Accounting,[address] [facility], [place], [place], [address] [place] [address], [facility] - [facility] 11/18/2023 11:09:37 Influenza, split virus, quadrivalent, PF 8 completed NONA JACKSON MD Attn: Accounting,[address] [facility], [place], [address] [place] [address], [facility] - [facility] 11/18/2023 11:09:37 Influenza, MDCK, trivalent, PF 0 completed NONA JACKSON MD Attn: Accounting,[address] [facility], [place], [place], [address] [place] [address], [facility] - [facility] 11/18/2023 11:13:35 HepB-CpG 0 completed NONA JACKSON MD Attn: Accounting,[address] [facility], [place], [place], [address] [place] [address], [facility] - [facility] 11/18/2023 11:11:11 influenza, unspecified formulation 2 completed NONA JACKSON MD Attn: Accounting,[address] [facility], [place], [address] [place] [address], [place] [facility] 11/18/2023 11:13:35 Influenza, split virus, trivalent, preservative 2 completed NONA JACKSON MD Attn: Accounting,[address] [place], [address] [place] [address], [place] [facility] 11/18/2023 11:13:35 Influenza, MDCK, trivalent, PF 2 completed NONA JACKSON MD Attn: Accounting,[address] [place], [address] [place] [address], [place] [facility] 11/18/2023 11:13:35 COVID-19, mRNA, LNP-S, PF, 100 mcg/0.5mL dose or 50 mcg/0.25mL dose 2 completed Bouchra Gaytan [place], [place] [facility] 09/18/2021 14:35:30 COVID-19, mRNA, LNP-S, bivalent, PF, 50 mcg/0.5 mL or 25mcg/0.25 mL dose 3 completed Lin Clay APN, FUR OPERATOR-C Attn: Accounting,[address] [place], [address] [place] [address], [place] [facility] 09/09/2022 17:30:45 Influenza, split virus, quadrivalent, preservative 3 completed Sharon Padron MD Attn: Accounting,[address] [place], [address] [place] [address], [place] [facility] 06/25/2023 15:55:11 pneumococcal, unspecified formulation 0 completed Nona Bejaranogenbotham [place] [facility] 07/29/2023 15:56:48 tetanus toxoid, unspecified formulation 0 completed Nona [place]both[place] [facility] 07/29/2023 15:56:48 Influenza, high-dose, trivalent, PF 4 completed Sharon Padron MD Attn: Accounting,[address] [place], [address] [place] [address] [place] [facility] 05/05/2024 15:10:30 Past Encounters Encounter ID Performer Location Encounter Start Date Encounter Closed Date Diagnosis/Indication Diagnosis SNOMED-CT Code Diagnosis ICD10 Code Diagnosis Note [id number] Yakelin Altamirano [facility] [address] [place] [address] 06/18/2014 14:13:02 06/18/2014 16:52:12 Type 2 diabetes mellitus 08038569 Last HGbA1c on 10-03-2013 was excellent a 5.9. Adult heal th examination [id number] Patient already received an influenza vaccinatio n in April 2014. Urinary incontinence [id number] followed by urologist Dr. Smith at [facility] in [place]. [id number] MD Osvaldo Nolasco (Adult Med) [address] [place] [address] 10/19/2016 13:58:24 10/20/2016 10:48:00 Diabetes mellitus 80161557 E11.9 Diabetic low saturated fat diet, .Insulin. Urinary incontinence 165 529495 R32 Degenerati ve joint disease involving multiple joints 538884499 M15.9 Knees and lower back. PT / OT will be offered.Ca lcium/luciana min D . Osteoporosis 65674001 M8 1.0 Daily OTC calcium/vi tamin D daily. Hypothyroidism 03592740 E03.9 Bipolar disorder 1277801 4 F31.9 She is going to [facility], [phone]. [id number] MD Yoselin De Oliveirahalto (Adult Med) [address] [place] [address] 08/07/2021 10:06:22 08/08/2021 06:50:14 Essential hypertension 19837913 I10 - pt is on amlodipine /not sure about lisinopril or losartan Type 2 allegra betes mellitus 60665614 E11.21 -pt is on lantus 28 units hs with humolog tid with meal per endopt is on metformine and some other meds - pt to call with meds Hypothyroidism 84113905 E03.9 pt is on thyroid pill Bipolar disorder 4031779 4 F31.9 meds per Chronic renal failure 90 102235 N18.9 -pt sees nephro at [facility] Urinary incontinence 165 249357 R32 with h/o hydrocepha lina -s/p shunt - sees urologist Hydrocephalus 597178496 G91.9 s/p shunt -sees urologist [id number] MD Yoselin De Oliveirahalto (Adult Med) [address] [place] [address] 08/22/2021 14:52:59 08/25/2021 09:14:51 Essential hypertension 91600177 I10 - pt is on amlodipine Type 2 allegra betes mellitus 24164079 E11.21 -pt is on lantus 28 units hs with humolog tid with meal per endopt is on metformine and some other meds - pt to call with meds Hypothyroidism 54653767 E03.9 pt is on thyroid pill Bipolar disorder 1558801 4 F31.9 meds per Chronic renal failure 90 648153 N18.9 -pt sees nephro at [facility] Hydrocephalus 691886812 G91.9 s/p shunt -sees urologist [id number] MD Farhat De Oliveira (Adult Med) [address] [place] [address] 09/17/2021 13:24:08 09/18/2021 07:23:33 Pressure injury of sacral region of back 205118667 L89.159 - change position /keep area cleanrefer ral to home health [id number] JACK Vogel (Adult Med) [address] [place] [address] 09/18/2021 14:09:46 09/19/2021 11:56:16 Administration of SARS-CoV-2 mRNA vaccine 0759214492 Z23 [id number] MD [facility] ([facility] [address] [place] [address] 11/04/2021 13:31:16 11/05/2021 13:28:11 Vaginitis 40971042 N76.0 -improving /sees 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 Type 2 allegra betes mellitus 51287806 E11.21 -pt is on lantus 28 units hs with humolog tid with meal per endopt is off of metformine due to diarrhea Calcificat ion of coronary artery 810489499 I25.84 -CT chest showed per pulmo and wants to be referred to cardio [id number] MD Yoselin De Oliveir[place]alto (Adult Med) [address] [place] [address] 12/01/2021 14:53:59 12/02/2021 14:55:40 Essential hypertension 83162887 I10 - pt is on amlodipine Type 2 allegra betes mellitus 80721889 E11.21 -pt is on lantus 28 units hs with humolog tid with meal per endopt is off of metformine due to diarrhea Hypothyroidism 83227444 E03.9 pt is on thyroid pill Bipolar disorder 5694193 4 F31.9 meds per Chronic renal failure 90 792041 N18.9 -pt sees nephro at [facility] Sinusitis 86371802 J32.9 - pt to try flonase and loratidine Urinary incontinence 165 505161 R32 with h/o hydrocepha lina -s/p shunt - sees urologist [id number] MD Yoseiln De Oliveirahalto (Adult Med) [address] [place] [address] 04/10/2022 13:40:44 04/13/2022 08:21:58 Essential hypertension 69018264 I10 - pt is on amlodipine Type 2 allegra betes mellitus 52830753 E11.21 -pt is on lantus 28 units hs with humolog tid with meal per endopt is off of metformine due to diarrhea Hypothyroidism 94199194 E03.9 pt is on thyroid pill Bipolar disorder 3319330 4 F31.9 meds per Chronic renal failure 90 540743 N18.9 -pt sees nephro at [facility] Screening mammography 24 642617 Z12.31 Screening for malignant neoplasm of colon 049236811 Z12.11 Renewal of prescription 524971099 Z76.0 Dependent edema 26246735 4 R60.0 -elevate legs [id number] MD Yoselin De Oliveirahalto (Adult Med) [address] [place] [address] 05/29/2022 12:17:26 06/02/2022 12:55:38 Dysuria 70356609 R30.0 -urine dipstick -okwill rx symptomati gus /pt to keep good hydrationp t sees urologist as well [id number] MD Farhat De Oliveira (Adult Med) [address] [place] [address] 08/07/2022 11:29:22 08/10/2022 10:18:15 Essential hypertension 66199186 I10 - pt is on amlodipine Type 2 allegra betes mellitus 71005162 E11.21 -pt is on lantus 28 units hs with humolog tid with meal per endopt is off of metformine due to diarrhea Chronic renal failure 90 073029 N18.9 -pt sees nephro at [facility] Bipolar disorder 1023599 4 F31.9 meds per Hydrocephalus 596837568 G91.9 s/p shunt -sees urologist Hypothyroidism 08541742 E03.9 pt is on thyroid pill [id number] Lin Clay APN, REECE Dougherty (Adult Med) [address] [facility] [address] 09/09/2022 13:52:43 09/09/2022 17:31:36 Administration of SARS-CoV-2 mRNA vaccine 4255829256 Z23 [id number] Lin Clay APN, FNP-C [place] (Adult Med) [address] [facility] [place] [address] 09/09/2022 15:49:34 09/10/2022 03:47:07 [id number] MD [facility]elin [facility] (Adult Med) [address] [place] [address] 11/03/2022 11:10:38 11/05/2022 09:52:22 Essential hypertension 73711053 I10 - pt is on amlodipine Type 2 allegra betes mellitus 73760011 E11.21 -pt is on lantus 28 units hs with humolog tid with meal per endopt is off of metformine due to diarrhea Bipolar disorder 9563976 4 F31.9 meds per Bilateral arthritis of knees 2778086022 235545 M13.861 M13.862 with back pain- pt is on pregabalin for chronic pain Hydrocephalus 342231794 G91.9 s/p shunt -sees urologist Hyperlipidemia 16072322 E78.5 with coronary calcificat ion -seen by cardio as well-pt is on statin Difficulty walking 83440 2003 R26.2 due to hydrocepha lina/chroni c arthritis of knees and back- pt is wheelchair bound -pt is not safe with walker or cane and risks of falls-pt needs electric wheelchair to complete her adl [id number] MD Farhat De Oliveira (Adult Med) [address] [place] [address] 03/02/2023 11:31:40 03/03/2023 09:49:26 Essential hypertension 74360543 I10 - pt is on amlodipine Type 2 allegra betes mellitus 70740588 E11.21 -pt is on lantus 28 units hs with humolog tid with meal per endopt is off of metformine due to diarrhea Hypothyroidism 92975082 E03.9 pt is on thyroid pill Bipolar disorder 0609644 4 F31.9 meds per - pt is requesting depakote level Chronic renal failure 90 645415 N18.9 -pt sees nephro at [place]- avoid nsaid Hydrocephalus 190446783 G91.9 s/p shunt -sees urologist Decreased hearing 834009 001 H91.90 [id number] MD Farhat De Oliveira (Adult Med) [address] [place] [address] 06/25/2023 13:53:46 06/29/2023 12:23:18 Essential hypertension 92818521 I10 - pt is on amlodipine Type 2 allegra betes mellitus 65597331 E11.21 -pt is on lantus 28 units hs with humolog tid with meal per endopt is off of metformine due to diarrhea Hypothyroidism 20027062 E03.9 pt is on thyroid pill Lower urin samantha tract symptoms 168193049 R39.9 possibly due to vaginal atrophy- urine culture showed mixed growthpt was rxed with several antibiotic s by other providers on several occasions - discussed with pt regarding mutliple antibiotic use-pt to follow up with Gynpt is on uti px Hyperlipidemia 81104146 E78.5 with coronary calcificat ion -seen by cardio as well-pt is on statin Administra tion of influenza vaccine 70696718 Z23 [id number] MD Farhat Ferrell (Adult Med) [address] [place] [address] 07/20/2023 14:20:57 07/21/2023 10:23:43 Dysfunction of bilateral eustachian tubes 9653751719 115558 H69.93 follow back if it isn't improving Acute sinusitis 50077147 J01.90 start augmentin [id number] MD Yoselin De Oliveirahalto (Adult Med) [address] [place] [address] 09/28/2023 11:12:03 09/30/2023 16:27:23 Essential hypertension 85476625 I10 - pt is on amlodipine Type 2 allerga betes mellitus 50425951 E11.21 -pt is on lantus 28 units hs with humolog tid with meal per endopt is off of metformine due to diarrheapt is on ozempic as well Hypothyroidism 35406351 E03.9 pt is on thyroid pill Hyperlipidemia 17810530 E78.5 with coronary calcificat ion -seen by cardio as well-pt is on statin Bipolar disorder 1607366 4 F31.9 meds per - pt is requesting depakote level Screening for malignant neoplasm of colon 053883619 Z12.11 [id number] [facility] [address] [place] [address] 10/13/2023 16:49:54 10/18/2023 10:58:56 Urinary symptoms 487890710 R39.9 -UA positive for leukocytes despite prophylact ic therapy.-P ositive for CVA tenderness .-Patient presentati on concerning for possible antibiotic resistant UTI due to chronic antibiotic use and history of UTI treatment at the end of August.- Patient was escorted to the bathroom by 3 [place] staff members. Patient was unable to stand on her own and relied heavily on her 3 helpers. Patient states she lives at home alone and has felt very weak. Patient states she does not have anyone to help her at home.-POLYMER SPECIALIST discussed possibilit y of UTI with UA showing leukocytes , positive for CVA tenderness , and patient's increased weakness. POLYMER SPECIALIST discussed safety of patient going home alone with the patient. Patient would like to seek care in the ED. Patient would like to be driven to the ED by her drop hammer pile driver operator instead of waiting for ambulance transport. -Patient to follow up with PCP. Body mass index 40+ - severely obese 597878070 Z68.41 [id number] MD [facility]elin [facility] (ENGINEERING EXECUTIVE) [address] [place] [address] 11/18/2023 10:30:18 11/19/2023 12:24:03 Routine gynecologic examination done 0697604936 9101 Z01.419 - Reviewed risks for infection and cancer; ordered screening tests as appropriat e Recurrent urinary tract infection 011908122 N39.0 - Patient already using twice weekly vaginal estrogen- Has had 2 culture-co nfirmed UTIs between 06/2023 and 10/2023, both with E coli- Suspect having an acute UTI currently so will treat empiricall y with nitrofuran toin, which last E coli infection was susceptibl e to- f/u urine culture; will adjust treatment as indicated by results- Recommende d patient discuss UTI prophylaxi s with daily Abx with urology provider Screening for malignant neoplasm of breast 642526890 Z12.31 - Due for screening mammogram; ordered today Atrophic vaginitis 85987 000 N95.2 - Refilled home vaginal estrogen [id number] MD Yoselin [facility] (ENGINEERING EXECUTIVE) [address] [place] [address] 11/26/2023 11:45:14 12/04/2023 18:12:22 Acute vaginitis 65612992 N76.0 - Will check NuSwab to see patient has yeast infection that does not respond as well to azoles- Continue vaginal terconazol e for 7 nights as prescribed by urgent care Candidiasis of skin 4988 3006 B37.2 - Mild erythema of left inguinal crease concerning for yeast infection- Will treat with nystatin cream BID PRN [id number] MD [facility]elin [facility] (Adult Med) [address] [place] [address] 02/01/2024 10:44:25 02/07/2024 12:07:15 Essential hypertension 44273368 I10 - pt is on amlodipine Hypothyroidism 17041039 E03.9 pt is on thyroid pill Hyperlipidemia 32556290 E78.5 with coronary calcificat ion -seen by cardio as well-pt is on statin Type 2 allegra betes mellitus 31595927 E11.21 -pt is on lantus 28 units hs with humolog tid with meal per endopt is off of metformine due to diarrheapt is on ozempic as well Bipolar disorder 8929968 4 F31.9 meds per - pt is requesting depakote level Recurrent urinary tract infection 598999517 N39.0 - pt sees urologist and was rxed with several rounds of antibiotic Obesity 399689545 E66.8 [id number] MD Farhat [facility] (ENGINEERING EXECUTIVE) [address] [place] [address] 02/11/2024 11:24:37 02/17/2024 16:21:44 Pruritus of vagina 23593725 L29.3 - Patient has persistent ly been treated for yeast vulvovagin itis with terconazol e cream but when was last checked with a NuSwab for these complaints on 11/26/23, the result returned negative for BV, yeast, NG, CT, and TV.- Given the frequency and chronicity of patient's pruritic complaints , I would like to confirm whether yeast vulvovagin itis is the etiology of her symptoms before continuous ly treating, as other causes of pruritis should be addressed. I suspect a component of irritant contact dermatitis with her use of incontinen ce underwear. 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 - pt is seeing hematologi st and has lab to do in 2 month per pt Chronic tremor [id number] R25.1 which interferes with daily activities -holding things and writing [id number] MD Farhat De Oliveira (Adult Med) [address] [place] [address] 07/24/2024 14:54:59 07/28/2024 11:02:42 Community acquired pneumonia [id number] J18.9 -pt is on augmantin now-improv ing-will repeat cxr in few wks Recurrent urinary tract infection 263025775 N39.0 - pt sees urologist and was rxed with several rounds of antibiotic Hydrocephalus [id number] G91.9 s/p shunt -sees neurologis t Health Concerns Section Related Observation LastModified by Organization Detai ls LastModified Time None Recorded Concern Status LastModified by Organization Details LastModified Time None Recorded Advance Directives Directive None Recorded Payers Encounter Date Sequence Insurance Name Policy Number Policy Morales Covered Member ID Morales Member ID Guarantor Name 11/26/2023 1 [facility] (MEDICARE REPLACEMENT/A DVANTAGE - PPO) [id number] Khadra Wolfe Allsman [id number] Khadra Wolfe Allsman 02/01/2024 1 [facility] (MEDICARE REPLACEMENT/A DVANTAGE - PPO) [id number] Khadra Wolfe Allsman [id number] Khadra Wolfe Allsman 02/11/2024 1 [facility] (MEDICARE REPLACEMENT/A DVANTAGE - PPO) [id number] Khadra Wolfe Allsman [id number] Khadra Wolfe Allsman 05/05/2024 1 [facility] (MEDICARE REPLACEMENT/A DVANTAGE - PPO) [id number] Khadra Wolfe Allsman [id number] Khadra Wolfe Allsman 07/24/2024 1 [place]) Khadra Wolfe Allsman [id number] Khadra Wolfe Allsman Notes Date Note Type Note Provider Name and Address Organization Details Recorded Time 11/26/2023 text/html Yeast infection concerns- History difficult to obtain due to hearing impairment and patient stating different things about symptoms and recent medical care- Since last visit, states she saw the urologist last Wednesday as well as went to urgent care- Says she is on an antibiotic (from urologist?) and was prescribed terconazole cream from urgent care- Denies vaginal itching- Had dysuria after drinking soda once NONA JACKSON MD Attn: Accounting[address] [facility], [place], [address], [facility] 11/26/2023 14:23:43 02/01/2024 text/html Diabetes F/URepo rted bypatient.Labs:last A1C result: 9 (with endo 12/01) Context:not missing doses of medications; no side effects from medications Associated Symptoms:no weight gain; no dizziness;numbness of feetNotes:pt sees for DMHypertension F/UReported bypatient.Associated Symptoms:no dizziness; no chest pain; no shortness of breath; no palpitations; no edema Lifestyle:regular exercise; limiting/avoiding salt Medications:taking medications as directed; no side effects from medication pt with multiple medical problems is here for f/u .Pt has endo for DM , also seeing specilaist for hydrocephalus/ pt sees psychiatrist for bipolar , taking meds as prescribed per pt . pt sees urologist for urinary incontinence Sharon Padron MD Attn: Accounting, [address] [place], [address], [facility] 02/01/2024 13:48:28 02/11/2024 text/html Yeast infection concerns- Would like refill of yeast medication. States it was last prescribed after she was treated with Abx for an E coli UTI. Her last yeast medication use was 1-2 weeks ago.- Says at different times throughout the visit that she has vulvar itching and vaginal discharge, and at other times that she is not having these symptoms.- States she takes trimethoprim for her UTIs; prescribed by her urologist but wants something else prescribed because it didn't work for her recent E coli UTI- Says the symptom she had to indicate she had a UTI was vaginal discharge NONA JACKSON MD Attn: Accounting, [address] [place], [address], [facility] 02/11/2024 13:58:40 05/05/2024 text/html pt with multiple medical problems is here for tremorspt is complaining of tremors which interferes with writing /holding thingsPt has endo for DM , also seeing specilaist for hydrocephalus/ pt sees psychiatrist for bipolar , taking meds as prescribed per pt . pt sees urologist for urinary incontinence Sharon Padron MD Attn: Accounting, [address] [place], [address], [facility] 05/05/2024 15:11:55 07/24/2024 text/html pt with multiple medical problems is here for hospital f/upt was recently admitted with pneumonia and UTI , rxed with antibiotic . pt also found to have subdural hematoma due to fall which was stable and rxed conservativelypt was subsequently discharged to rehab /pt is back home now -trying to get home healthpt is wheelchair bound and she is at high risks for fallpt denied cough or sob or chest pain at present time /taking antibiotic for sinus infection per pt Pt has endo for DM , also seeing specialist for hydrocephalus/ pt sees psychiatrist for bipolar , taking meds as prescribed per pt . pt sees urologist for urinary incontinence Sharon Padron MD Attn: Accounting[address] [facility], [place], [address], [facility] 07/25/2024 13:51:16 OBGyn Episode No OBEpisode recorded.
== END 2024-08-02 14:29 | disposition home or self-care (01) ==
PROVIDERS: Emergency Provider Nurse Practitioner; PCP Internal Medicine
DX: J32.9 Chronic sinusitis, unspecified (principal); Z20.822 Contact with and (suspected) exposure to COVID-19; Z87.891 Personal history of nicotine dependence; I12.0 Hypertensive chronic kidney disease with stage 5 chronic kidney disease or end stage renal disease; E11.22 Type 2 diabetes mellitus with diabetic chronic kidney disease; N18.5 Chronic kidney disease, stage 5; Z79.4 Long term (current) use of insulin; J44.9 Chronic obstructive pulmonary disease, unspecified; E03.9 Hypothyroidism, unspecified; Z98.2 Presence of cerebrospinal fluid drainage device; F41.9 Anxiety disorder, unspecified; F31.9 Bipolar disorder, unspecified
CPT/HCPCS: 81003; 87426; 87804; 99213; G0463

== ENCOUNTER 2024-12-07 17:56 | Emergency (ER) | payer MEDICARE, MEDICAID, SELFPAY ==
--- OUTSIDE RECORDS SUMMARY | 2024-12-07 17:59 | XMS_ITS | Clinical Summary ---
Author Organization [facility] Address [address] [place] [address] Phone Care Team Providers Care Nibbler Operator Name Role Phone Sharon Moya Primary Care Provider [phone] Allergies Active Allergy Reactions Criticality Noted Date Comments Carbamazepine Itching,Other (see comments),Rash Medium 01/09/2017 Reaction: Carbamazepine, Eslicarbazepine, And Oxcarbazepine Meperidine Other (see comments),Rash Medium 01/09/2017 Other reaction(s): Vomiting Reaction: Reaction: Unknown, , , Reaction: Unknown, , Other reaction(s): Other (See comments), Vomiting Reaction: Reaction: Unknown, , , Reaction: Unknown, , Other reaction(s): Vomiting Reaction: Reaction: Unknown, , , Reaction: Unknown, , Meperidine Hcl 05/03/2019 Metformin Diarrhea Low 03/02/2019 Medications ergocalciferol (VITAMIN D-2) 30606 units capsule take 1 capsule by oral route every week 04/05/20 15 Active ferrous sulfate 325 (65 Fe) MG tablet take 1 tablet by otic route every day 09/13/19 15 Active alendronate (FOSAMAX) 70 MG tablet alendronate 70 mg tablet Active aspirin 81 MG chewable tablet aspirin 81 mg chewable tablet CHEW 1 TABLET(S) EVERY DAY BY ORAL ROUTE AFTER MEALS FOR 30 DAYS. Active benzonatate (TESSALON) 100 MG capsule Take 100 mg by mouth every 8 hours 06/19/20 18 Active cetirizine (ZyrTEC) 10 MG tablet All Day Allergy (cetirizine) 10 mg tablet TAKE 1 TABLET BY MOUTH DAILY Active citalopram (CeleXA) 20 MG tablet citalopram 20 mg tablet Active cranberry conc-ascorbic acid (CRANBERRY CONCENTRATE) 140-100-3 MG-MG-UNIT capsule Cranberry Concentrate 140 mg-100 mg capsule TAKE 1 BY ORAL ROUTE ONCE Active cyclobenzaprin e (FLEXERIL) 10 MG tablet cyclobenzaprine 10 mg tablet TAKE 1 TABLET BY MOUTH AT BEDTIME Active darifenacin (ENABLEX) 15 MG 24 hr tablet Enablex 15 mg tablet,extended release Active dicyclomine (BENTYL) 20 MG tablet dicyclomine 20 mg tablet Active docusate sodium (COLACE) 100 MG capsule Take 100 mg by mouth 2 times daily 07/10/20 17 Active Droxidopa (NORTHERA) 100 MG capsule 100 mg 10/18/19 15 Active estradiol-nore thindrone (ACTIVELLA) 0.5-0.1 MG per tablet take 1 tablet by oral route every day 04/05/20 15 Active conjugated estrogens (PREMARIN) vaginal cream Premarin 0.625 mg/gram vaginal cream Active fenofibrate (TRIGLIDE) 160 MG tablet fenofibrate 160 mg tablet TAKE 1 TABLET BY MOUTH DAILY Active Fesoterodine Fumarate ER (TOVIAZ) 8 MG tablet sustained-rele ase 24 hour 8 mg 09/13/19 15 Active FLUoxetine (PROzac) 40 MG capsule fluoxetine 40 mg capsule Active fluticasone (FLONASE) 50 MCG/ACT nasal spray fluticasone propionate 50 mcg/actuation nasal spray,suspension 01/05/20 17 Active glyBURIDE (DIABETA) 5 MG tablet TAKE 2 TABLETS BY MOUTH ONCE A DAY 09/01/19 19 Active loratadine-pse udoephedrine (CLARITIN-D 12 HOUR) 5-120 MG per 12 hr tablet Take 1 tablet by mouth every 12 hours 06/19/20 18 Active methocarbamol (ROBAXIN) 500 MG tablet methocarbamol 500 mg tablet Active Mirabegron ER (MYRBETRIQ) 50 MG tablet sustained-rele ase 24 hour Myrbetriq 50 mg tablet,extended release Active pravastatin (PRAVACHOL) 20 MG tablet Take 1 tablet by mouth 12/31/19 17 Active potassium chloride (KLOR-CON M20) 20 MEQ CR tablet potassium chloride ER 20 mEq tablet,extended release(part/cryst) Activ e QUEtiapine (SEROquel) 200 MG tablet quetiapine 200 mg tablet Active raNITIdine (ZANTAC) 300 MG tablet ranitidine 300 mg tablet TAKE 1 TABLET BY MOUTH AT BEDTIME Active SITagliptin (JANUVIA) 50 MG tablet Januvia 50 mg tablet TAKE 1 TABLET BY MOUTH IN THE MORNING Active traMADol (ULTRAM) 50 MG tablet Take 50 mg by mouth Active insulin glargine (LANTUS SOLOSTAR) 100 UNIT/ML injection Inject 30 Units under the skin daily 01/01/20 17 Active LORazepam (ATIVAN) 0.5 MG tablet Take 0.5 mg by mouth Active meloxicam (MOBIC) 15 MG tablet meloxicam 15 mg tablet TAKE 1/2 TABLET BY ORAL ROUTE 2 TIMES EVERY DAY 09/13/19 15 Active pantoprazole (PROTONIX) 20 MG EC tablet pantoprazole 20 mg tablet,delayed release Active tamsulosin (FLOMAX) 0.4 MG 24 hr capsule 0.4 mg 04/05/20 15 Active risperiDONE (RisperDAL) 0.5 MG tablet 0.5 mg 04/05/20 15 Active PROCTOFOAM HC rectal foam APPLY TO AFFECTED AREA RECTALLY THREE TIMES DAILY 2 02/08/20 19 Active metFORMIN (GLUCOPHAGE) 500 MG tablet metformin 500 mg tablet Active atorvastatin (LIPITOR) 20 MG tablet Take 20 mg by mouth daily Active Cholecalcifero l (VITAMIN D3) 3000 units tablet Take 3,000 Units by mouth daily Active hydrOXYzine (VISTARIL) 25 MG capsule Take 25 mg by mouth 12/26/19 19 Active ibandronate (BONIVA) 150 MG tablet ibandronate 150 mg tablet Active Albuterol Sulfate 2.5 MG/0.5ML nebulizer solution INHALE 1 VIAL VIA NEBULIZER EVERY 4 HOURS NEEDED FOR DYSPNEA 12/28/19 21 Active amLODIPine (NORVASC) 5 MG tablet 03/11/20 21 Active famotidine (PEPCID) 40 MG tablet 03/11/20 21 Active Contour Next Test test strip 4 (four) times a day as directed 02/28/20 21 Active hydrOXYzine (ATARAX) 25 MG tablet 03/03/20 21 Active melatonin 3 MG tablet Take 3 mg by mouth A ctive montelukast (SINGULAIR) 10 MG tablet Take 10 mg by mouth 1 (one) time each day 03/04/20 21 Active senna (SENOKOT) 8.6 MG tablet Take 1 tablet by mouth daily Active Spiriva Respimat 2.5 MCG/ACT aerosol solution 03/11/20 21 Active busPIRone (BUSPAR) 15 MG tablet 03/11/20 21 Active glipiZIDE (GLUCOTROL XL) 5 MG 24 hr tablet 03/11/20 21 Active HumaLOG KWIKPEN 100 UNIT/ML solution pen-injector 03/12/20 21 Active levothyroxine (SYNTHROID) 150 MCG tablet 03/11/20 21 Active Blood Glucose Monitoring Suppl (Wingu Verio Flex System) w/Device kit USE TO CHECK BLOOD SUGAR THREE TIMES DAILY 08/22/19 22 Active divalproex (DEPAKOTE) 500 MG EC tablet 10/28/19 22 Active Trelegy Ellipta 100-62.5-25 MCG/INH aerosol powder 10/21/19 22 Active ipratropium (ATROVENT) 0.03 % nasal spray ADMINISTER 2 SPRAYS INTO EACH NOSTRIL EVERY 12 HOURS. 08/10/19 22 Active mupirocin (BACTROBAN) 2 % ointment APPLY TO AFFECTED AREA 3 TIMES A DAY 10/07/19 22 Active trimethoprim (TRIMPEX) 100 MG tablet 10/28/19 22 Active ascorbic acid (VITAMIN C) 500 mg chewable tablet Chew Active biotin 300 MCG tablet tablet Take 300 mcg by mouth daily Active Lancets (Wingu Delica Plus [id number]) misc 4 TIMES A DAY 09/26/19 22 Active cycloSPORINE (Restasis) 0.05 % ophthalmic emulsion 02/19/20 22 Active Elastic Bandages & Supports (Ultra Support Spinal Orthosis) misc See administration instructions 06/01/20 17 Active Diclofenac Sodium 1 % gel 12/19/19 22 Active BD Pen Needle Akanksha 2nd Gen 32G X 4 MM misc 1 PEN NEEDLE BY DOES NOT APPLY ROUTE 4 TIMES DAILY. USE TO INJECT INSULIN 4X DAILY. 03/16/20 22 Active furosemide (LASIX) 40 MG tablet TAKE 1 TABLET BY MOUTH TWICE A DAY 180 tablet 3 06/29/20 22 Active Active Problems Problem Noted Date Diagnosed Date Calcification of coronary artery 02/25/2022 Chronic pain 02/25/2022 Constipation 02/25/2022 Coronary atherosclerosis 02/25/2022 Dyspnea on exertion 02/25/2022 Hyperkalemia 02/25/2022 Upper respiratory infection 02/25/2022 Abdominal pain, right lower quadrant 09/12/2021 Seizure disorder 06/16/2021 D-dimer above reference range 06/15/2021 Gastroesophageal reflux disease 06/15/2021 Pneumonia caused by SARS-CoV-2 06/15/2021 Acute renal failure syndrome 03/27/2021 Hypoxia 12/27/2020 Acute recurrent maxillary sinusitis 05/21/2020 Overview (03/27/2021): Last Assessment & Plan: Nasal saline spray (Simply saline, [employer], [place], [place]) 2 second sprays or 2 squeezes into each nostril while looking down over the sink, do not need to sniff in. Followed by Flonase 2 sprays into each nostril while looking down over the sink, do not sniff in or blow nose after use for at least 30 minutes daily Continue Claritin 10 mg daily Allergic rhinitis 05/21/2020 Overview (03/27/2021): Last Assessment & Plan: Continue home medications Chronic diastolic heart failure 11/18/2019 Overview (03/27/2021): Last Assessment & Plan: Continue Lasix and Arb with hold parameters. Multiple nodules of lung 11/18/2019 Pain in right foot 06/23/2019 Arthropathy of multiple joints 02/24/2019 Multiple joint pain 02/24/2019 History of total knee arthroplasty 11/19/2018 Body mass index 40+ - severely obese 11/19/2018 Acute exacerbation of chronic obstructive airway s disease 11/19/2018 Overview (03/27/2021): Last Assessment & Plan: Patient does not wear oxygen at home. She presented with an SpO2 of 88% on room air. Likely secondary to COPD exacerbation. Feeling better at this time. Continue to monitor and wean oxygen as tolerated. Last Assessment & Plan: Patient has had increased sputum production and yellow sputum which is unusual for her. She is feeling better at this time. She has decreased breath sounds bilaterally, no obvious wheezing. Continue with scheduled nebs and will start patient on prednisone 40 daily. Patient started on azithromycin, will continue for 3 days total. Will also check urine Legionella to rule out atypical infection. May need an additional 2 days of azithromycin if Legionella is positive. Patient has already completed in total a 10 day course of Augmentin. No need for ceftriaxone, will DC at this time. Hyperlipidemia 11/17/2018 Toxic metabolic encephalopathy 11/17/2018 Idiopathic normal pressure hydrocephalus 018 Primary osteoarthritis of right knee 02/03/2017 Overview (05/03/2019): Added automatically from request for surgery [id number] Chronic kidney disease, stage 3 (moderate) 12/15 Chronic kidney disease stage 4 12/16/2015 Essential (primary) hypertension 12/15/2015 Type 2 diabetes mellitus without complication Other bipolar disorder 12/15/2015 Other depressive episodes 12/15/2015 Overview (09/24/2018): Converted unresolved ICD9, potential mismatch. 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 Overview (03/27/2021): Note: 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 BY UROLOGIST Kaitlyn incontinence 02/11/2011 Immunizations Immunization Administration Dates Next Due Influenza (IM) Preservative Free 05/02/2017,10/0 07/2015,04/11/2015 Influenza Injectable Mdck Qu adrivalent Preservative 07/02/2021 Influenza Split High Dose Pr eservative Free IM 05/23/2014 Influenza TIV (IM) 03/06/2022 Influenza Trivalent Adjuvanted 08/07/2018 Influenza Vac Tissue-culture d Subunit Quadrivalent 04/23/2020 Influenza, Injectable, Mdck, Preservative Free, Quadrivalt 04/23/2020 Influenza, Injectable, Quadrivalent 04/12/2019,0 07/12/1999 Influenza, Injectable, Quadr ivalent, Preservative Free 04/18/2018 Influenza, Unspecified 04/12/2019 Moderna Sars-cov-2 Vaccination 10/17/2020 PPD Test 07/12/1999 Pneumococcal Conjugate 13-Valent 08/25/2016 Pneumococcal Polysaccharide 02/13/2021, 0 Pneumococcal, Unspecified 07/12/1999 Sars-cov-2, Unspecified 11/05/2020 Tdap 02/27/2017 Tetanus Toxoid, Unspecified 07/12/1999 Family History Medical History Relation Comments Kidney disease Neg Hx Kidney stone Neg Hx Social History Tobacco Use Types Packs/Day Years Used Date Smoking Tobacco: Never Smokeless Tobacco: Never Alcohol Use Standard Drinks/Week Comments No 0 (1 standard drink = 0.6 oz pur e alcohol) Comments Unknown Sex and Gender Information Value Date Recorded Sex Assigned at Not on file Legal Sex Female 8:46 AM [facility] Gender Identity Not on file Sexual Orientation Not on file Last Filed Vital Signs Vital Sign Reading Time Taken Comments Blood Pressure 134/74 03/25/2022 3:12 PM CDT Pulse - - Temperature 36.8 C (98.2 F) 03/25/2022 3:12 PM CDT Respiratory Rate 18 03/25/2022 3:12 PM CDT Oxygen Saturation - - Inhaled Oxygen Concentration - - Weight 95.3 kg (210 lb) 03/25/2022 3:12 PM CDT Height 175.3 cm (5' 9) 03/25/2022 3:12 PM CDT Body Mass Index 31.01 03/25/2022 3:12 PM CDT Plan of Treatment Health Maintenance Due Date Last Done Comments COVID-19 Vaccine (2023-2 5 season) 2024 11/14/2020, 11/05/2020, 10/17/2020 Influenza Vaccine (Season Ended) 2025 03/06/2022, 07/02/2021, 04/23/2020, Additional history exists Pneumococcal PPSV23/PCV13 65 + Years / Low and Medium Risk Completed 02/13/2021, 08/25/2016, 07/12/[address] [place] [id number] [employer] MEDICARE Care Teams Nibbler Operator Relationship Specialty Start Date End Date Sharon Moya PCP - General Internal Medicine 11/05/21
--- OUTSIDE RECORDS SUMMARY | 2024-12-07 17:59 | XMS_ITS | Encounter Summary ---
Author Organization [facility] Address [address] [place] [address] Phone Care Team Providers Care Waste Management Specialist Name Role Phone Sharon Moya MD Primary Care Provider Chapito Garcia MD Unavailable Radha Mac DPM Unavailable [phone] Encounter Details Date Type Department Care Team (Late st Contact Info) Description 06/27/2024 Nursing Facility [facility] [address] [place] [address] Fiorella Horn, HORIZONTAL BORING MILL SET UP OPERATOR, OPERATIONS MANAGER [address] [place] [address] Social History Tobacco Use Types Packs/Day Years Used Date Smoking Tobacco: Former Cigarettes 1 12 Smokeless Tobacco: Never Alcohol Use Standard Drinks/Week Comments No 0 (1 standard drink = 0.6 oz pur e alcohol) [facility] Utilities Answer Date Recorded In the past 12 months has th [employer] electric, gas, oil, or water company threatened to shut off services in your home? Patient declined 05/25/2024 Social Connection and Isolation Panel [NHANES] A nswer Date Recorded In a typical week, how many times do you talk on the phone with family, friends, or neighbors? Patient declined 05/25/2024 How often do you get togethe r with friends or relatives? Patient declined 05/25/2024 How often do you attend religious or oriental orthodox serv ices? Patient declined 05/25/2024 Do you belong to any clubs o r organizations such as religious groups, unions, fraternal or athletic groups, or school groups? Patient declined 05/25/2024 How often do you attend meet ings of the clubs or organizations you belong to? Patient declined 05/25/2024 Are you , , di vorced, , never , or living with a partner? Patient declined 05/25/2024 AUDIT-C Answer Date Recorded Q1: How often do you have a drink containing alc ohol? Patient declined 05/25/2024 Q2: How many drinks containi ng alcohol do you have on a typical day when you are drinking? Patient declined 05/25/2024 Q3: How often do you have si x or more drinks on one occasion? Patient declined 05/25/2024 Overall Financial Resource Strain (CARDIA) Answe r Date Recorded How hard is it for you to pa y for the very basics like food, housing, medical care, and heating? Patient declined 05/25/2024 PHQ-2 Answer Date Recorded Total Score - Questions 1-9 0 03/2022 [facility] - Occupational Stress Questionnaire Answer Date Recorded Do you feel stress - tense, restless, nervous, or anxious, or unable to sleep at night because your mind is troubled all the time - these days? Patient declined 05/25/2024 Exercise Vital Sign Answer Date Recorde d On average, how many days pe r week do you engage in moderate to strenuous exercise (like a brisk walk)? Patient declined On average, how many minutes do you engage in exercise at this level? Patient declined 05/25/2024 Hunger Vital Sign Answer Date Recorded Within the past 12 months, y ou worried that your food would run out before you got the money to buy more. Patient declined Within the past 12 months, t he food you bought just didn't last and you didn't have money to get more. Patient declined PRAPARE - Transportation Answer Date Re corded In the past 12 months, has l ack of transportation kept you from medical appointments or from getting medications? Patient declined 05/25/2024 In the past 12 months, has l ack of transportation kept you from meetings, work, or from getting things needed for daily living? Patient declined 05/25/2024 Housing Stability Vital Sign Answer Tommy e Recorded In the last 12 months, was t here a time when you were not able to pay the mortgage or rent on time? Patient declined 05/25/20 24 In the past 12 months, how m any times have you moved where you were living? 0 05/25/2024 At any time in the past 12 m [facility], were you homeless or living in a chcf (including now)? Patient declined 05/25/2024 Sexually Active Control Partners Comments Not Currently Comments No Sex and Gender Information Value Date Recorded Sex Assigned at Female 02/22/2023 8:54 AM CDT Legal Sex Female 7:09 PM CDT Gender Identity Female 02/22/2023 8:54 AM CDT Sexual Orientation Not on file documented as of this encounter Plan of Treatment Upcoming Encounters Date Type Department Care Team (Late st Contact Info) Description 12/21/2024 9:45 AM CDT Office Visit [facility] - Endocrinology [facility] [address] [place] [address] Chapito Garcia MD [address] [address] documented as of this encounter Visit Diagnoses Not on filedocumented in this encounter Care Teams Waste Management Specialist Relationship Specialty Start Date End Date Sharon Moya MD [address] [place] [address] PCP - General Internal Medicine 09/16/21 Chapito Garcia MD [address] [address] Consulting Physician Endocrinology 12/25/21 Radha Mac DPM [address] [phone] Consulting Physician Podiatry 05/26/22 documented as of this encounter
--- OUTSIDE RECORDS SUMMARY | 2024-12-07 17:59 | XMS_ITS | Continuity of Care Document ---
Author Organization [facility] Address [address] [place] [address] Phone Care Team Providers Care Patient Relations Liaison Name Role Phone Sergo FLORES, Jerzy Unavailable [...] Copied on Encounter Office/outpati ent Visit, Est Formerly [facility], [address] [place] [address] [address], [place], [place], [id number], [place] tel:[phone] SEC [facility] [place] No Information 201 0 Sergo Bertrand. [facility] [place], [place], [id number], [place]. tel:[phone] Referring Provider: Tony Forrester, [address] [place], [address]. tel:[phone] Formerly [facility], [address], [place], [place], [id number], tel:[phone] [facility] [place] No Information 8-201 0 Cesario Jimenez. [address] [place], [place], [facility], [place]. tel:[phone] Referring Provider: Dante Simmons OD A, [address] [facility] [address], [place], [place], [facility]. tel:[phone] [facility], [address] [place] [address] [address], [place], [place], [id number], [place] tel:[phone] SEC [facility] [place] No Information 9-201 0 Simmons OD Dante. [address] [facility] , [address], [place], [place], [facility], [place]. tel:[phone] [facility], [address] [place] [address] [address], [place], [place], [id number], [place] tel:[phone] SEC [facility] No Information 2-200 9 Cesario Jimenez. [address] [place], [place], [facility], [place]. tel:[phone] Referring Provider: Tony Forrester, [address] [place], [place], [facility]. tel:[phone] Office Consultation [facility], [address] [place] [address] [address], [place], [place], [id number], [place] tel:[phone] SEC [facility] No Information 7-200 8 Cesario Jimenez. [address] [place], [place], [facility], [place]. tel:[phone] Referring Provider: Ellis Hearn OD, [address] [facility], [place], [address]. tel:[phone] Family History Family Member Type Diagnosis Age At Onset No Information Payers Payer name Insurance type Covered green party ID Authoriza tion(s) Medicare [facility] [id number] Medicaid [facility] [id number] Social History Type Description Quantity Date Captured [...]
--- OUTSIDE RECORDS SUMMARY | 2024-12-07 17:59 | XMS_ITS | Clinical Summary ---
Author Organization [facility] [employer] [facility] [employer] [facility] Address [address] [place] [address] Phone Care Team Providers Care Candle Extrusion Machine Operator Name Role Phone Sharon Moya MD Primary Care Provider [phone] Encounters Date Type Department Care Team Description 11/24/2024 Documentation Only [place] [facility] [address] [address] Provider, MD Peggy from Last 3 Months Social History Tobacco Use Types Packs/Day Years Used Date Smoking Tobacco: Never Assessed Comments Unknown Sex and Gender Information Value Date Recorded Sex Assigned at Not on file Legal Sex Female 12:09 PM EDT Gender Identity Not on file Sexual Orientation Not on file Plan of Treatment Upcoming Encounters Date Type Department Care Team (Late st Contact Info) Description 01/15/2025 2:45 PM CDT Office Visit [place] [facility] [address] [place] [address] Gio Garces MD [address] [place] [address] [address] [place] [address] Health Maintenance Due Date Last Done Comments Breast Cancer Screening 1959 Colorectal Cancer Screening: Annual FOBT 2008 Colorectal Cancer Screening: Colonoscopy 2008 Colorectal Cancer Screening: Sigmoidoscopy 2008 Diabetes: Ophthalmology Exam 11/24/2024 Diabetes: Pedal Pulse Checked 11/24/2024 Diabetes: Sensory Foot Exam 11/24/2024 Diabetes: Visual Foot Exam 11/24/2024 Diabetes: Hemoglobin A1C 12/12/2024 025, 05/23/2024, 10/12/2019 Influenza Vaccine (Season Ended) 2025 06/25/2023, 03/06/2022, 03/05/2022, Additional history exists Pneumococcal Vaccine: 50+ Years (4 of 4 - PCV20 or PCV21) 02/13/2026 02/13/2021, 08/25/2016, 07/12/1999, Additional history exists Hepatitis B Vaccine Aged Out No longe r eligible based on patient's age to complete this topic Insurance Dr [address] [place] [address] UHC Medicare Medicaid [place] Care Teams Candle Extrusion Machine Operator Relationship Specialty Start Date End Date Sharon Moya MD [address] [place] [address] PCP - General Internal Medicine 11/24/24
--- OUTSIDE RECORDS SUMMARY | 2024-12-07 17:59 | XMS_ITS | Encounter Summary ---
Author Organization [facility] Address [address] [facility] [place] [address] Phone Care Team Providers Care Market Analysis Director Name Role Phone Sharon Moya MD Primary Care Provider [phone] Chapito Garcia MD Unavailable Radha Mac DPM Unavailable Encounter Details Date Type Department Care Team (Late st Contact Info) Description 07/18/[address] [facility] [address] [place] [address] Fiorella Horn, GUN NUMBERER, DAY CAMP COUNSELOR [address] [place] [address] Social History Tobacco Use Types Packs/Day Years Used Date Smoking Tobacco: Former Cigarettes 1 12 Smokeless Tobacco: Never Alcohol Use Standard Drinks/Week Comments No 0 (1 standard drink = 0.6 oz pur e alcohol) [facility] Utilities Answer Date Recorded In the past 12 months has th [employer] electric, gas, oil, or water company threatened [...] declined 05/25/2024 How often do you attend mandaeism or advent serv ices? Patient declined 05/25/2024 Do you belong to any clubs o r organizations such as mandaeism groups, unions, fraternal or athletic groups, or [...] Total Score - Questions 1-9 0 03/2022 [facility] - Occupational Stress Questionnaire Answer Date Recorded [...] any time in the past 12 m [facility], were you homeless or living in a longterm (including now)? Patient declined 05/25/2024 Sexually Active [...] Office Visit [facility] - Endocrin[facility] [address] [place] [address] Chapito Garcia MD [address] [address] documented as of this encounter Visit Diagnoses Not on filedocumented in this encounter Care Teams Market Analysis Director Relationship Specialty Start Date End Date Sharon Moya MD [address] [place] [address] PCP - General Internal Medicine 09/16/21 Chapito Garcia MD [address] [address] Consulting Physician Endocrinology 12/25/21 Radha Mac DPM [address] [phone] Consulting Physician Podiatry 05/26/22 documented as of this encounter
--- OUTSIDE RECORDS SUMMARY | 2024-12-07 17:59 | XMS_ITS | Encounter Summary ---
Author Organization [facility] Address [address] [facility] [place] [address] Phone Care Team Providers Care Child Psychiatrist Name Role Phone Sharon Moya MD Primary Care Provider [phone] Chapito Garcia MD Unavailable Radha Mac DPM Unavailable Encounter Details Date Type Department Care Team (Late st Contact Info) Description 07/18/2024 Nursing Facility [facility] [address] [place] [address] Fiorella Horn, PROFESSOR OF COMMUNICATION, PURCHASING ASSOCIATE [address] [place] [address] Social History Tobacco Use Types Packs/Day Years Used Date Smoking Tobacco: Former Cigarettes 1 12 Smokeless Tobacco: Never Alcohol Use Standard Drinks/Week Comments No 0 (1 standard drink = 0.6 oz pur e alcohol) [facility] Utilities Answer Date Recorded In the past 12 months has th [employer] electric, gas, oil, or water company threatened [...] declined 05/25/2024 How often do you attend restorationism or oriental orthodox serv ices? Patient declined 05/25/2024 Do you belong to any clubs o r organizations such as restorationism groups, unions, fraternal or athletic groups, or [...] [facility] - Occupational Stress Questionnaire Answer Date Recorded [...] any time in the past 12 m [facility], were you homeless or living in a care home (including now)? Patient declined 05/25/2024 Sexually Active [...] Visit [facility] - Endocrinology [facility] [address] [place] [address] Chapito Garcia MD [address] [address] documented as of this encounter Visit Diagnoses Not on filedocumented in this encounter Care Teams Child Psychiatrist Relationship Specialty Start Date End Date Sharon Moya MD [address] [place] [address] PCP - General Internal Medicine 09/16/21 Chapito Garcia MD [address] [address] Consulting Physician Endocrinology 12/25/21 Radha Mac DPM [address] [phone] Consulting Physician Podiatry 05/26/22 documented as of this encounter
--- OUTSIDE RECORDS SUMMARY | 2024-12-07 17:59 | XMS_ITS | Patient Health Record ---
Author Organization [facility] Address [address] [place] [address] Care Team Providers Care Financial Services Auditor Name Role Phone Anthony Burks Primary Care Provider Zelda Malone Unavailable [phone] Allergies Allergen (clinical drug ingredient) Drug/Non Drug Allergy documented on EMR Reaction Allergy Type Onset Date Status Steroids steroids (uncoded) High blood sugar Allergy Active meperidine Demerol nausea and vomiting Drug Allergy Active carbamazepine Tegretol hives Drug Allergy Act arleth Reason For Referral No Information Medications Medication SIG (Take, Route, Frequency, Duration) Notes Start Date End Date Status Depend Underwear X-Large - as directed DX. z74.0 impaired mobility nightly for 365 days 03/30/2018 Active Super Size Bed Pad - as directed dx. z74 .0 impaired mobility nightly for 365 days 03/30/2018 Active Microlet Lancets - as directed three ti mes daily for 30 days 10/21/2017 Active Ozempic (0.25 or 0.5 MG/DOSE) 2 MG/3ML as directed Subcutaneous Not-Taking BD [employer] Home - as directed as needed for 365 days 12/09/2017 Active Misc. Devices - Power Scooter prn fo r 365 days 12/24/2017 Active Back Support - as directed for 365 days 06/01/2017 Active Acetaminophen Extra Strength 500 mg TAKE 2 TABLETS BY MOUTH THREE TIMES A DAY for 28 Active Aspirin 81 MG TAKE 1 TABLET BY FLORY TH ONCE DAILY Orally Once a day for 30 days Active Citalopram Hydrobromide 20 MG 1 tablet Orally Once a day for 30 days Active Proctozone-HC 2.5 % 1 application Communication Clerk ally three times daily for 7 days 12/05/2019 Active Senna-Time 8.6 mg TAKE 1 TABLET BY FLORY TH AT BEDTIME as NEEDED Active Aspirin Low Dose 81 mg TAKE 1 TABLET BY MOUTH ONCE DAILY for 28 Active Lyrica Active Nitrofurantoin Monohyd Macro 100 MG 1 capsule at bedtime with food Orally Twice a day Active Alendronate Sodium 70 mg TAKE 1 TABLET B Y MOUTH EVERY WEEK IN THE MORNING AT LEAST 30 MINUTES BEFORE FOOD Active Famotidine 40 mg TAKE 1 TABLET BY FLORY TH AT BEDTIME Active Spiriva Respimat 2.5 MCG/ACT INHALE 2 PUFFS DAILY for 30 Active Levothyroxine Sodium 150 MCG TAKE 1 TABLET BY MOUTH EVERY MORNING ON EMPTY STOMACH Active Montelukast Sodium 10 MG TAKE 1 TABLET B Y MOUTH EVERY DAY for 30 Active Lantus SoloStar 100 UNIT/ML INJECT 45 UNITS SUBCUTANEOUSLY AT BEDTIME for 33 Active Easy Touch Pen Avery 32G X 5 MM as directed inject four times daily for 25 Active guaiFENesin-DM 100-10 MG/5ML 10 ml as needed Orally every 4 hrs 04/14/2021 Active Melatonin 3 MG 1 tablet at bedtime as needed Orally Once a day for 30 days Active Wheelchair - as directed for Dx M 17.0 Primary osteoarthritis of both knees 10/31/2018 Active hydrOXYzine HCl 25 mg 1 tab every night by mouth when needed orally every night for 30 days Active Wheelchair - as directed as neede d for 365 days 06/14/2019 Active risperiDONE 0.5 MG 1 tablet bedtime Ora lly Once a day for 30 days Active busPIRone HCl 15 MG 1 tablet Orally thre e times a day for 30 days Active Divalproex Sodium 500 MG 2 tabs Orally t wice daily for 30 days Active glipiZIDE ER 5 mg TAKE 1 TABLET BY FLORY TH DAILY WITH FOOD for 28 Not-Takin g CeleXA 20 MG 1 tablet Orally Once a day for 30 days Active Albuterol Sulfate (2.5 MG/3ML) 0.083% 3 ml as needed Inhalation every 6 hrs for 30 days 11/28/2019 Not-Taking Misc. Devices - Diabetic Shoe Dx: E1 1.9 Diabetes 2 Daily for 365 days 04/18/2018 Active MiraLax - 1/2-1 packet mixed w ith 8 ounces of fluid Orally every other day 12/25/2019 Active Nebulizer - as directed for dx J 44.9 externally every 4 hours as needed 04/14/2021 Active Albuterol Sulfate (2.5 MG/3ML) 0.083% 3 ml as needed for dx J44.9 Inhalation every 4 hrs 04/14/2021 Active Trimethoprim 100 mg TAKE 1 TABLET BY FLORY TH DAILY for 28 Active Vitamin D (Cholecalciferol) 1000 UNIT three at HS Orally Once a day for 30 days 03/10/2018 Active Tamsulosin HCl 0.4 mg TAKE 1 CAPSULE BY MOUTH TWICE A DAY for 28 Active HumaLOG KwikPen 100 UNIT/ML INJECT 20 UNITS SUBCUTANEOUSLY AT BREAKFAST, 12 UNITS AT LUNCH, AND 14 UNITS AT DINNE for 65 Active Loratadine 10 mg TAKE 1 TABLET BY FLORY TH DAILY Active Furosemide 40 mg TAKE 1 TABLET BY FLORY TH DAILY for 28 Active amLODIPine Besylate 5 mg TAKE 1 TABLET B Y MOUTH DAILY Active Atorvastatin Calcium 20 mg TAKE 1 TABLET BY MOUTH DAILY for 28 Active hydrOXYzine HCl 25 MG 1 tablet as needed Orally at night for 30 days Active Fluticasone Propionate 50 MCG/ACT USE ONE SPRAY IN EACH NOSTRIL DAILY for 60 Active UltiGuard SafePack Pen Needle 32G X 4 MM USE DIRECTED FOUR TIMES A DAY for 25 Active Potassium Chloride 20 MEQ 1 tablet with food Orally Once a day for 28 Active Albuterol Sulfate HFA 108 (90 Base) MCG/ACT INHALE 1 PUFF EVERY FOUR HOURS NEEDED for 33 Active TEST STRIPS, FORMULARY ANY DIRECTED via meter for Dx E11.9 four times daily 03/03/2017 Active Eddy Contour Test - four times daily as directed In Vitro for dx: E11.9 Type 2 diabetes for 90 days 10/13/2018 Active Diabetic Shoes n/a as directed external as directed for 365 days 01/25/2019 Active LANCETS thin as directed to skin four times daily for 30 days 03/03/2017 Active Immunizations Vaccine Route Administration Date Status Comme nts Influenza, injectable, quadrivalent, preservative free IM Intramuscular 04/18/2018 Administered Patient tolerated well. Vaccine info sheet given to patient. COVID-19 Moderna 2nd IM Intramuscular 11/14/2020 Administered COVID-19 Moderna 1ST IM Intramuscular 10/17/2020 Administered Social History Tobacco Use: Social History Observation Description Date Details (start date - stop date) Never Smoker NA - NA Sex Assigned At : Social History Observation Description Sex Assigned At Female Dont use, Tobacco Use/Smoking Question Answer Notes Are you a former smoker Tobacco Control (Standard) Question Answer Notes Tobacco use: Nonsmoker Problems Problem Type SNOMED Code ICD Code Onset Dates Problem Status W/U Status Risk Notes Problem 04349929 Hyperkalemia (E87.5) Active confirmed Problem 53943301 Other chronic pa in (G89.29) Active confirmed Problem Bipolar 1 disorder (197618206) Bipolar 1 disorder (F31.9) 017 Active confirmed Problem 4083396 Former smoker (Z87.891) Active confirmed Problem 760444302 Environmental allergies (Z91.09) Active confirmed Problem 58967957 Hypertension, essential (I10) 021 Active confirmed Problem 27705958 Constipation, unspecified constipation type (K59.00) Active confirmed Problem 675755185 Gastroesophageal reflux disease, esophagitis presence not specified (K21.9) Active confirmed Problem 92694657 Hyperlipidemia, unspecified hyperlipidemia type (E78.5) Active confirmed Problem 91479074 Chronic obstructive pulmonary disease, unspecified COPD type (J44.9) Active confirmed Problem 589397884 Primary osteoarthritis of both knees (M17.0) Active confirmed Problem 971358680 Type 2 diabetes mellitus without complication, unspecified chcf insulin use status (E11.9) 017 Active confirmed Problem 308257783 Pneumonia due to infectious organism, unspecified laterality, unspecified part of lung (J18.9) Active confirmed 01/2021 - RESOLVED Problem 75943485 Upper respirator y tract infection, unspecified type (J06.9) Active confirmed Problem Rhinitis, unspecified type (J31.0) Active confirmed Problem Acquired hypothyroidism (540852859) Acquired hypothyroidism (E03.9) Active confirmed Problem 789708920 Stage 3 chronic kidney disease (N18.3) Active confirmed DR WILSON RENAL Specialist Problem Obesity (240500910) Obesity, unspecified classification, unspecified obesity type, unspecified whether serious comorbidity present (E66.9) Active confirmed Problem 58120685 Dyspnea on exertion (R06.00) Active confirmed Problem 09396701 Osteoporosis, unspecified (M81.0) Active confirmed Encounters Encounter Location Date Provider Diagnosis [place] [place] [address] 02/04/2024 Arif Habib Bipolar 1 disorder F31.[address] [place] [address] 04/25/2024 Arif Habib Bipolar 1 disorder F31.[address] [place] [address] 06/20/2024 Arif Habib Bipolar 1 disorder F31.[address] [facility] [place] [address] 08/01/2024 Arif Habib Bipolar 1 disorder F31.[address] [place] [address] 10/24/2024 Arif Habib Bipolar 1 disorder F31.[address] [place] [address] 12/14/2023 Arif Habib Bipolar 1 disorder F31.[address] [place] [address] 02/01/2024 Arif Habib Bipolar 1 disorder F31.[address] [place] [address] 02/02/2024 Arif Habib [address] [place] [address] 02/04/2024 Arif Habib Bipolar 1 disorder F31.[address] [place] [address] 04/27/2024 Anthony Burks [address] [place] [address] 07/28/2024 Arif Habib Bipolar 1 disorder F31.[address] [place] [address] 09/19/2024 Arif Habib Bipolar 1 disorder F31.[address] [facility] [place] [address] 10/24/2024 Anthony Burks [facility] [address] [place] [address] 11/03/2024 Anthony Burks [facility] [address] [place] [address] 11/09/2024 Zelda Malone Assessments Encounter Date Diagnosis (ICD Code) Assessment Notes Treatment Notes Treatment Clinical Notes Section Notes 02/01/2024 Bipolar 1 disorder (ICD-10 - F31.9) 04/25/2024 Bipolar 1 disorder (ICD-10 - F31.9) continue current treatment. Side effects discussed. Supportive treatment provided. No involuntary movements reported. Check depakote level, CBC, CMP 07/28/2024 Bipolar 1 disorder (ICD-10 - F31.9) 08/01/2024 Bipolar 1 disorder (ICD-10 - F31.9) continue current treatment. Side effects discussed. Supportive treatment provided. No involuntary movements reported. 09/19/2024 Bipolar 1 disorder (ICD-10 - F31.9) 10/24/2024 Bipolar 1 disorder (ICD-10 - F31.9) continue current treatment. Side effects discussed. Supportive treatment provided. No involuntary movements reported. Check depakote level, CBC, CMP. Pt said she gets her labs done regularly at PCP office. 06/20/2024 Bipolar 1 disorder (ICD-10 - F31.9) continue current treatment. Side effects discussed. Supportive treatment provided. No involuntary movements reported. 02/04/2024 Bipolar 1 disorder (ICD-10 - F31.9) 12/14/2023 Bipolar 1 disorder (ICD-10 - F31.9) 02/04/2024 Bipolar 1 disorder (ICD-10 - F31.9) 02/04/2024 Other side effects discussed. Supportive treatment provided. Depakote level is still pending. She said she is going to her PCP today for blood work. She usually has regular blood work by PCP. Plan Of Treatment Pending Test Test Name Order Date Electrocardiogram (EKG) 10/24/2018 Xray : CHEST PA LATERAL 10/24/2018 MRI : Lumbar without contrast 03/30/2019 CBC With Differential/Platelet* 10/25/19 25 CBC With Differential/Platelet* 02/03/20 23 Valproic Acid (Depakote)(R),S 10/24/2024 Valproic Acid (Depakote)(R),S 02/02/2023 CMP 14 Comprehensive Metabolic Panel* CMP 14 Comprehensive Metabolic Panel* Future Test Test Name Order Date DEXA Hip and Spine 09/30/2020 Insurance Providers Payer Name Payer Address Payer Phone Subscriber Number Group Number Insured Name Patient Relationship to Insured Coverage Start Date Coverage End Date [facility] Medicare Assure [address] [address] [place] [address] [id number] Khadra Beltran Self - patient is the insured 2 MEDICAID [address] [place] [address] [id number] Khadra Beltran Self - patient is the insured 5 4 Medical (General) History Medical History History ICD Code DM HLD hypothyroidism allergies Normal Pressure Hydrocephalus with ventr iculoperitonela shunt in 2014 Surgical History Surgery Date(Month/Year) cholecystectomy TOTAL HYSTERECTOMY APPENDECTOMY CATARACT SURGERY, COMPLEX Hospitalization History Reason Date(Month/Year) High Blood sugar- [facility] 01/2023 Pnuemonia at [facility] 09/11/19 acute ecoli infection 02/2016
--- OUTSIDE RECORDS SUMMARY | 2024-12-07 17:59 | XMS_ITS | Data Portability ---
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 Plan of Treatment Reminders Order Date Submit Date Provider Last Modified By Organization Details Last Modified Time Details Appointments MEDICAR Chirstophe ARAUZ S VISIT 2024 10:45A M JEMMA CAMARILLO, REPAIRER SASH AND DOOR-BC Not available Not available Not available Lab fecal occult blood, immunoa ssay, stool 2024 025 [email or web address] [facility], [address] [facility] [address], [place], [address], 11/29/2024 15:19:16 vaginal pathoge ns panel, KOLE+pro be, vaginal fluid 2023 024 QUINTEN [facility], [address] [facility] [address], [place], [address], 02/14/2024 03:35:51 Referral neurolo gist referra l 2023 024 [facility], [address] [facility] [place], [address], 11/28/2024 09:38:24 Procedures None recorde d. Surgeries None recorde d. Imaging MAMMO, screeni ng, digital , bilater al 2024 025 ATHENAX [facility], [address] [facility] [place], [address], 11/24/2024 12:21:44 XR, chest, 2 view [facility], [address] [facility] , [place], [address], 10/05/2024 08:43:48 Medication Orders tercona zole 0.4 % vaginal cream 2024 025 [id number], [address] [place], [address], 11/24/2024 11:34:05 loratad ine 5 mg disinte grating tablet 2024 025 [id number], [address] [place], [address], 09/22/2024 12:23:31 hydroco rtisone 2.5 % topical cream with perinea l applica tor 2024 025 [id number], [address] [place], [address], 09/22/2024 12:23:31 Patient TargetsNo targets recorded. Patient Instructions Encounter Date Encounter Id Patient Instructions Last Modified By Organization Details Last Modified Time 05/05/2024 [id number] f/u in 3 month nsuthan Not available 05/05/2024 15:11:07 07/24/2024 [id number] f/u in 2 month nsuthan Not available 07/24/2024 15:48:23 09/22/2024 [id number] pneumococcal polysaccharide vaccine: care instructions Not available 09/22/2024 12:56:30 Plan of care has been discussed with patient including expected therapeutic benefits and potential side effects of prescribed medication and treatments. Patient verbalizes understanding and is in agreement with the plan of care. Patient was instructed to keep all scheduled appointments and contact the clinic for any additional problems. Health Maintenance: - CRC screening (45-75):Due at 45 years. ordered - Osteoporosis screening: Due at 65. - Lipid screening (>45 unless additional risk factors): 02/01/24 - HIV : declined - HepC: negative 2021 -Eye exam: 2024 -Dental Exam: endentulous - Immunizations: - Influenza: Due. 05/05/24 - Prevnar 20: Due at 65. - Tdap/Td ([id number]): 02/27/17 - Zoster (>60):Due at 60. 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 Referring Physician: Aubrey Moya, Internal Medicine, Encounter Date: 05/05/2024 Results Created Date Observation Date Name Description Value Unit Range Abnormal Flag Note LastModifiedBy Organization Detail LastModifiedTime 01/28/20 24 02/01/2024 Bacte charlotte ident ified in Urine by Cultu re microorganis m identified in specimen by culture ENTERO BACTER CLOACA E COMPLE X CULTU RE RESUL TS ENTER OBACT ER CLOAC AE COMPL EX 01/31 1:37 PM CDT [facility] Not Available Not Available 09/05/2024 11:38:06 01/28/20 24 02/01/2024 Bacte charlotte ident ified in Urine by Cultu re microorganis m identified in specimen by culture PSEUDO MONAS AERUGI NOSA CULTU RE RESUL TS PSEUD OMONA S AERUG INOSA 01/31 1:37 PM CDT [facility] Not Available Not Available 09/05/2024 11:38:06 02/01/20 24 02/02/2024 LIPID PANEL cholesterol, total 175 mg/dL 100-19 9 Not Available [facility] ([facility]) [address] [facility], [place], [address], 02/02/2024 05:10:15 02/01/20 24 02/02/2024 LIPID PANEL triglyceride s 191 mg/dL 0-149 above high normal Not Available [facility] ([facility]) [address] [facility], [address], 02/02/2024 05:10:15 02/01/20 24 02/02/2024 LIPID PANEL HDL cholesterol 55 mg/dL >39 Not Available [facility] ([facility]) [address] [facility], [address], 02/02/2024 05:10:15 02/01/20 24 02/02/2024 LIPID PANEL VLDL cholesterol marylu 32 mg/dL 5-40 Not Available [facility] ([facility]) [address] [facility], [address], 02/02/2024 05:10:15 02/01/2002/02/2024 LIPID PANEL LDL chol calc ([facility]) 88 mg/dL 0-99 Not Available [facility] ([facility]) [address] [facility], [address], 02/02/2024 05:10:15 02/01/20 24 02/02/2024 COMP. METAB OLIC PANEL (14) glucose 142 mg/dL 70-99 above high normal Not Available [facility] ([facility]) [address] [facility], [address], 02/02/2024 05:10:15 02/01/20 24 02/02/2024 COMP. METAB OLIC PANEL (14) BUN 23 mg/dL 8-27 Not Available [facility] ([facility]) [address] [facility], [address], 02/02/2024 05:10:15 02/01/20 24 02/02/2024 COMP. METAB OLIC PANEL (14) creatinine 1.84 mg/dL 0.57-1 .00 above high normal Not Available [facility] ([facility]) [address] [facility], [address], 02/02/2024 05:10:15 02/01/20 24 02/02/2024 COMP. METAB OLIC PANEL (14) eGFR 30 mL/mi n/1.7 3 >59 below low normal Not Available [facility] ([facility]) [address] [facility], [place], [address], 02/02/2024 05:10:15 02/01/20 24 02/02/2024 COMP. METAB OLIC PANEL (14) BUN/creatini ne ratio 13 12-28 Not Available [facility] ([facility]) [address] [facility], [place], [address], 02/02/2024 05:10:15 02/01/2002/02/2024 COMP. METAB OLIC PANEL (14) sodium 143 mmol/ L 134-14 4 Not Available [facility] ([facility]) [address] [facility], [place], [address], 02/02/2024 05:10:15 02/01/20 24 02/02/2024 COMP. METAB OLIC PANEL (14) potassium 4.4 mmol/ L 3.5-5. 2 Not Available [facility] ([facility]) [address] [facility], [place], [address], 02/02/2024 05:10:15 02/01/20 24 02/02/2024 COMP. METAB OLIC PANEL (14) chloride 104 mmol/ L 96-106 Not Available [facility] ([facility]) [address] [place], [address], 02/02/2024 05:10:15 02/01/20 24 02/02/2024 COMP. METAB OLIC PANEL (14) carbon dioxide, total 22 mmol/ L 20-29 Not Available [facility] ([facility]) [address] [facility], [place], [address], 02/02/2024 05:10:15 02/01/20 24 02/02/2024 COMP. METAB OLIC PANEL (14) calcium 9.8 mg/dL 8.7-10 .3 Not Available [facility] ([facility]) [address] [facility], [place], [address], 02/02/2024 05:10:15 02/01/20 24 02/02/2024 COMP. METAB OLIC PANEL (14) protein, total 6.1 g/dL 6.0-8. 5 Not Available [facility] ([facility]) [address], [place], [address], 02/02/2024 05:10:15 02/01/20 24 02/02/2024 COMP. METAB OLIC PANEL (14) albumin 4.0 g/dL 3.9-4. 9 Not Available [facility] ([facility]) [address], [place], [address], 02/02/2024 05:10:15 02/01/20 24 02/02/2024 COMP. METAB OLIC PANEL (14) globulin, total 2.1 g/dL 1.5-4. 5 Not Available [facility] ([facility]) [address] [facility] [place], [address], 02/02/2024 05:10:15 02/01/20 24 02/02/2024 COMP. METAB OLIC PANEL (14) bilirubin, total 0.3 mg/dL 0.0-1. 2 Not Available [facility] ([facility]) [address] [facility], [place], [address], 02/02/2024 05:10:15 02/01/20 24 02/02/2024 COMP. METAB OLIC PANEL (14) alkaline phosphatase 58 IU/L 44-121 Not Available [facility] ([facility]) [address] [facility], [place], [address], 02/02/2024 05:10:15 02/01/20 24 02/02/2024 COMP. METAB OLIC PANEL (14) AST (SGOT) 21 IU/L 0-40 Not Available [facility] ([facility]) [address] [facility], [place], [address], 02/02/2024 05:10:15 02/01/2002/02/2024 COMP. METAB OLIC PANEL (14) ALT (SGPT) 11 IU/L 0-32 Not Available [facility] ([facility]) [address] [facility], [place], [address], 02/02/2024 05:10:15 02/01/2002/02/2024 TSH TSH 3.800 uIU/m L 0.450- 4.500 Not Available [facility] ([facility]) [address] [facility], [place], [address], 02/02/2024 05:10:16 02/01/20 24 02/02/2024 CBC WITH DIFFE RENTI AL/PL ATELE T WBC 7.9 x10e3 /uL 3.4-10 .8 Not Available [facility] ([facility]) [address] [facility], [place], [address], 02/02/2024 05:10:17 02/01/2002/02/2024 CBC WITH DIFFE RENTI AL/PL ATELE T RBC 4.37 x10e6 /uL 3.77-5 .28 Not Available [facility] ([facility]) [address] [facility], [place], [address], 02/02/2024 05:10:17 02/01/2002/02/2024 CBC WITH DIFFE RENTI AL/PL ATELE T hemoglobin 13.8 g/dL 11.1-1 5.9 Not Available [facility] ([facility]) [address] [facility], [address], 02/02/2024 05:10:17 02/01/20 24 02/02/2024 CBC WITH DIFFE RENTI AL/PL ATELE T hematocrit 42.9 % 34.0-4 6.6 Not Available [facility] ([facility]) [address] [facility], [place], [address], 02/02/2024 05:10:17 02/01/2002/02/2024 CBC WITH DIFFE RENTI AL/PL ATELE T MCV 98 fL 79-97 above high normal Not Available [facility] ([facility]) [address] [facility], [place], [address], 02/02/2024 05:10:17 02/01/2002/02/2024 CBC WITH DIFFE RENTI AL/PL ATELE T MCH 31.6 pg 26.6-3 3.0 Not Available [facility] ([facility]) [address] [facility], [place], [address], 02/02/2024 05:10:17 02/01/2002/02/2024 CBC WITH DIFFE RENTI AL/PL ATELE T MCHC 32.2 g/dL 31.5-3 5.7 Not Available [facility] ([facility]) [address] [facility], [place], [address], 02/02/2024 05:10:17 02/01/2002/02/2024 CBC WITH DIFFE RENTI AL/PL ATELE T RDW 13.2 % 11.7-1 5.4 Not Available [facility] ([facility]) [address] [place], [address], 02/02/2024 05:10:17 02/01/2002/02/2024 CBC WITH DIFFE RENTI AL/PL ATELE T platelets 86 x10e3 /uL 150-45 0 alert low Plate let count verif ied by faith kirk of perip heral blood smear . Not Available [facility] ([facility]) [address] [place], [address], 02/02/2024 05:10:17 02/01/20 24 02/02/2024 CBC WITH DIFFE RENTI AL/PL ATELE T neutrophils 63 % notest ab. Not Available [facility] ([facility]) [address] [facility], [place], [address], 02/02/2024 05:10:17 02/01/20 24 02/02/2024 CBC WITH DIFFE RENTI AL/PL ATELE T lymphs 21 % notest ab. Not Available [facility] ([facility]) [address] [facility], [place], [address], 02/02/2024 05:10:17 02/01/20 24 02/02/2024 CBC WITH DIFFE RENTI AL/PL ATELE T monocytes 14 % notest ab. Not Available [facility] ([facility]) [address] [facility], [place], [address], 02/02/2024 05:10:17 02/01/20 24 02/02/2024 CBC WITH DIFFE RENTI AL/PL ATELE T eos 1 % notest ab. Not Available [facility] ([facility]) [address] [facility], [place], [address], 02/02/2024 05:10:17 02/01/2002/02/2024 CBC WITH DIFFE RENTI AL/PL ATELE T basos 0 % notest ab. Not Available [facility] ([facility]) [address] [facility], [place], [address], 02/02/2024 05:10:17 02/01/20 24 02/02/2024 CBC WITH DIFFE RENTI AL/PL ATELE T neutrophils (absolute) 5.0 x10e3 /uL 1.4-7. 0 Not Available [facility] ([facility]) [address] [place], [address], 02/02/2024 05:10:17 02/01/20 24 02/02/2024 CBC WITH DIFFE RENTI AL/PL ATELE T lymphs (absolute) 1.6 x10e3 /uL 0.7-3. 1 Not Available [facility] ([facility]) [address] [facility], [place], [address], 02/02/2024 05:10:17 02/01/2002/02/2024 CBC WITH DIFFE RENTI AL/PL ATELE T monocytes(ab solute) 1.1 x10e3 /uL 0.1-0. 9 above high normal Not Available [facility] ([facility]) [address] [facility], [place], [address], 02/02/2024 05:10:17 02/01/20 24 02/02/2024 CBC WITH DIFFE RENTI AL/PL ATELE T eos (absolute) 0.1 x10e3 /uL 0.0-0. 4 Not Available [facility] ([facility]) [address] [facility], [place], [address], 02/02/2024 05:10:17 02/01/20 24 02/02/2024 CBC WITH DIFFE RENTI AL/PL ATELE T baso (absolute) 0.0 x10e3 /uL 0.0-0. 2 Not Available [facility] ([facility]) [address] [facility], [place], [address], 02/02/2024 05:10:17 02/01/20 24 02/02/2024 CBC WITH DIFFE RENTI AL/PL ATELE T immature granulocytes 1 % notest ab. Not Available [facility] ([facility]) [address] [facility], [place], [address], 02/02/2024 05:10:17 02/01/20 24 02/02/2024 CBC WITH DIFFE RENTI AL/PL ATELE T immature grans (abs) 0.1 x10e3 /uL 0.0-0. 1 Not Available [facility] ([facility]) [address] [facility], [place], [address], 02/02/2024 05:10:17 02/01/20 24 02/02/2024 CBC WITH DIFFE RENTI AL/PL ATELE T hematology comments: NOTE: Verif ied by idalmis mccarty Not Available [facility] ([facility]) [address] [facility], [place], [address], 02/02/2024 05:10:17 02/04/20 24 02/05/2024 CBC WITH DIFFE RENTI AL/PL ATELE T WBC 6.7 x10e3 /uL 3.4-10 .8 Not Available [facility] ([facility]) [address] [facility], [place], [address], 02/05/2024 10:36:23 02/04/20 24 02/05/2024 CBC WITH DIFFE RENTI AL/PL ATELE T RBC 4.42 x10e6 /uL 3.77-5 .28 Not Available [facility] ([facility]) [address] [place], [address], 02/05/2024 10:36:23 02/04/20 24 02/05/2024 CBC WITH DIFFE RENTI AL/PL ATELE T hemoglobin 13.9 g/dL 11.1-1 5.9 Not Available [facility] ([facility]) [address] [facility], [place], [address], 02/05/2024 10:36:23 02/04/20 24 02/05/2024 CBC WITH DIFFE RENTI AL/PL ATELE T hematocrit 43.1 % 34.0-4 6.6 Not Available [facility] ([facility]) [address] [place], [address], 02/05/2024 10:36:23 02/04/20 24 02/05/2024 CBC WITH DIFFE RENTI AL/PL ATELE T MCV 98 fL 79-97 above high normal Not Available [facility] ([facility]) [address] [place], [address], 02/05/2024 10:36:23 02/04/20 24 02/05/2024 CBC WITH DIFFE RENTI AL/PL ATELE T MCH 31.4 pg 26.6-3 3.0 Not Available [facility] ([facility]) [address] [facility], [place], [address], 02/05/2024 10:36:23 02/04/20 24 02/05/2024 CBC WITH DIFFE RENTI AL/PL ATELE T MCHC 32.3 g/dL 31.5-3 5.7 Not Available [facility] ([facility]) [address] [facility], [place], [address], 02/05/2024 10:36:23 02/04/20 24 02/05/2024 CBC WITH DIFFE RENTI AL/PL ATELE T RDW 13.3 % 11.7-1 5.4 Not Available [facility] ([facility]) [address] [facility], [place], [address], 02/05/2024 10:36:23 02/04/20 24 02/05/2024 CBC WITH DIFFE RENTI AL/PL ATELE T platelets 70 x10e3 /uL 150-45 0 alert low Plate let count verif ied by faith kirk of perip heral blood smear . Not Available [facility] ([facility]) [address] [facility], [place], [address], 02/05/2024 10:36:23 02/04/20 24 02/05/2024 CBC WITH DIFFE RENTI AL/PL ATELE T neutrophils 57 % notest ab. Not Available [facility] ([facility]) [address] [place], [address], 02/05/2024 10:36:23 02/04/20 24 02/05/2024 CBC WITH DIFFE RENTI AL/PL ATELE T lymphs 27 % notest ab. Not Available [facility] ([facility]) [address] [place], [address], 02/05/2024 10:36:23 02/04/20 24 02/05/2024 CBC WITH DIFFE RENTI AL/PL ATELE T monocytes 14 % notest ab. Not Available [facility] ([facility]) [address] [facility], [place], [address], 02/05/2024 10:36:23 02/04/20 24 02/05/2024 CBC WITH DIFFE RENTI AL/PL ATELE T eos 1 % notest ab. Not Available [facility] ([facility]) [address] [facility], [place], [address], 02/05/2024 10:36:23 02/04/20 24 02/05/2024 CBC WITH DIFFE RENTI AL/PL ATELE T basos 0 % notest ab. Not Available [facility] ([facility]) [address] [facility], [place], [address], 02/05/2024 10:36:23 02/04/20 24 02/05/2024 CBC WITH DIFFE RENTI AL/PL ATELE T neutrophils (absolute) 3.8 x10e3 /uL 1.4-7. 0 Not Available [facility] ([facility]) [address] [facility], [place], [address], 02/05/2024 10:36:23 02/04/20 24 02/05/2024 CBC WITH DIFFE RENTI AL/PL ATELE T lymphs (absolute) 1.8 x10e3 /uL 0.7-3. 1 Not Available [facility] ([facility]) [address] [facility], [place], [address], 02/05/2024 10:36:23 02/04/20 24 02/05/2024 CBC WITH DIFFE RENTI AL/PL ATELE T monocytes(ab solute) 0.9 x10e3 /uL 0.1-0. 9 Not Available [facility] ([facility]) [address] [facility], [place], [address], 02/05/2024 10:36:23 02/04/20 24 02/05/2024 CBC WITH DIFFE RENTI AL/PL ATELE T eos (absolute) 0.1 x10e3 /uL 0.0-0. 4 Not Available [facility] ([facility]) [address] [facility], [place], [address], 02/05/2024 10:36:23 02/04/20 24 02/05/2024 CBC WITH DIFFE RENTI AL/PL ATELE T baso (absolute) 0.0 x10e3 /uL 0.0-0. 2 Not Available [facility] ([facility]) [address] [facility], [place], [address], 02/05/2024 10:36:23 02/04/20 24 02/05/2024 CBC WITH DIFFE RENTI AL/PL ATELE T immature granulocytes 1 % notest ab. Not Available [facility] ([facility]) [address] [facility], [place], [address], 02/05/2024 10:36:23 02/04/20 24 02/05/2024 CBC WITH DIFFE RENTI AL/PL ATELE T immature grans (abs) 0.1 x10e3 /uL 0.0-0. 1 Not Available [facility] ([facility]) [address] [facility], [place], [address], 02/05/2024 10:36:23 02/04/20 24 02/05/2024 CBC WITH DIFFE RENTI AL/PL ATELE T hematology comments: NOTE: Verif ied by micro scopi c exami natchaka n. Not Available [facility] ([facility]) [address] [place], [address], 02/05/2024 10:36:23 02/11/20 24 02/13/2024 NUSWA B VAGIN ITIS PLUS (VG+) atopobium vaginae LOW - 0 score Not Available [facility] ([facility]) [address] [place], [address], 02/14/2024 03:35:51 02/11/20 24 02/13/2024 NUSWA B VAGIN ITIS PLUS (VG+) bvab 2 LOW - 0 score Not Available [facility] ([facility]) [address] [facility], [place], [address], 02/14/2024 03:35:51 02/11/20 24 02/13/2024 NUSWA B [...] prese nce of BV. Not Available [facility] ([facility]) [address] [facility], [place], [address], 02/14/2024 03:35:51 02/11/20 24 02/13/2024 NUSWA B VAGIN ITIS PLUS (VG+) golden albicans, KOLE NEGATI VE negati ve Not Available [facility] ([facility]) [address] [facility], [place], [address], 02/14/2024 03:35:51 02/11/20 24 02/13/2024 NUSWA B VAGIN ITIS PLUS (VG+) golden glabrata, KOLE NEGATI VE negati ve Not Available [facility] ([facility]) [address] [place], [address], 02/14/2024 03:35:51 02/11/20 24 02/14/2024 NUSWA B VAGIN ITIS PLUS (VG+) trich vag by KOLE NEGATI VE negati ve Not Available [facility] ([facility]) [address] [facility], [place], [address], 02/14/2024 03:35:51 02/11/20 24 02/14/2024 NUSWA B VAGIN ITIS PLUS (VG+) chlamydia trachomatis, KOLE NEGATI VE negati ve Not Available [facility] ([facility]) [address] [facility], [place], [address], 02/14/2024 03:35:51 02/11/20 24 02/14/2024 NUSWA B VAGIN ITIS PLUS (VG+) neisseria gonorrhoeae, KOLE NEGATI VE negati ve Not Available [facility] ([facility]) [address] [facility], [place], [address], 02/14/2024 03:35:51 03/24/20 24 03/24/2024 Hemog lobin A1c/H emogl obin. total in Blood hemoglobin A1C/hemoglob in.total in blood 7.4 % low: 4%high : 6% abnormal HGB-A 1C 7.4 (A) 4 - 6 % Not Available Not Available 09/05/2024 11:38:08 03/24/20 24 03/24/2024 Hemog lobin A1c/H emogl obin. 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 [facility] Not Available Not Available 09/05/2024 11:38:08 05/22/20 24 05/22/2024 Compr ehens arleth metab olic 2000 panel - Serum or Plasm a potassium [moles/volum e] in serum or plasma 5 mmol/ L low: 3.5mmo l/Lhig h: 5.1mmo l/L POTAS SIUM 5.0 3.5 - 5.1 mmol/ L 05/22 11:21 AM [facility] Not Available Not Available 09/05/2024 11:38:08 05/22/20 24 05/22/2024 Compr ehens arleth metab olic 1999 panel - Serum or Plasm a chloride [moles/volum e] in serum or plasma 105 mmol/ L low: 98mmol /Lhigh : 107mmo l/L CHLOR HINA 105 98 - 107 mmol/ L 05/22 11:21 AM [facility] Not Available Not Available 09/05/2024 11:38:08 05/22/20 24 05/22/2024 Compr ehens arleth metab olic 2000 panel - Serum or Plasm a carbon dioxide, total [moles/volum e] in serum or plasma 20 mmol/ L low: 22mmol /Lhigh : 30mmol /L low CO2, VENOU S 20 (L) 22 - 30 mmol/ L 05/22 11:21 AM [facility] Not Available Not Available 09/05/2024 11:38:08 05/22/20 24 05/22/2024 Compr ehens arleth metab olic 2000 panel - Serum or Plasm a anion gap in serum or plasma 18 mmol/ L high: 18mmol /L high ANION GAP 18.0 (H) <18.0 mmol/ L 05/22 11:21 AM [facility] Not Available Not Available 09/05/2024 11:38:08 05/22/20 24 05/22/2024 Compr ehens arleth metab olic 2000 panel - Serum or Plasm a glucose [mass/volume ] in serum or plasma 281 mg/dL low: 70mg/d Lhigh: 99mg/d L high GLUCO SE 281 (H) 70 - 99 mg/dL 05/22 11:21 AM [facility] Not Available Not Available 09/05/2024 11:38:08 11/11/05/22/2024 Compr ehens arleth metab olic 1999 panel - Serum or Plasm a urea nitrogen [mass/volume ] in serum or plasma 34 mg/dL low: 10mg/d Lhigh: 20mg/d L high BUN 34 (H) 10 - 20 mg/dL 05/22 11:21 AM [employer] [facility] Not Available Not Available 09/05/2024 11:38:08 05/22/20 24 05/22/[address] [facility] arleth metab olic 1999 panel - Serum or Plasm a creatinine [mass/volume ] in serum or plasma 2.57 mg/dL low: 0.6mg/ dLhigh : 1mg/dL high CREAT ININE , BLOOD 2.57 (H) 0.60 - 1.00 mg/dL 05/22 11:21 AM INSTRUCTOR ADJUNCT SURGICAL TECHNICIAN [facility]ura SystemsT H CENTE R LAB Not Available Not Available 09/05/2024 11:38:08 05/22/20 24 05/22/[address] [employer] arleth metab olic 1999 panel - Serum or Plasm a urea nitrogen/cre atinine [mass ratio] in serum or plasma 13 text: 12 - 20 ratio BUN/C REATI NINE RATIO 13 12 - 20 ratio 05/22 11:21 AM [facility]ura SystemsT H CENTE R LAB Not Available Not Available 09/05/2024 11:38:08 05/22/20 24 05/22/2024 Compr [facility] arleth metab olic 1999 panel - Serum or Plasm a protein [mass/volume ] in serum or plasma 6.3 g/dL low: 6.3g/d Lhigh: 8.2g/d L TOTAL PROTE IN 6.3 6.3 - 8.2 g/dL 05/22 11:21 AM INSTRUCTOR ADJUNCT SURGICAL TECHNICIAN [facility] SystemsT H CENTE R LAB Not Available Not Available 09/05/2024 11:38:08 05/22/20 24 05/22/[address] [employer] arleth metab olic 2000 panel - Serum or Plasm a albumin [mass/volume ] in serum or plasma 3.6 g/dL low: 3.5g/d Lhigh: 5g/dL ALBUM IN 3.6 3.5 - 5.0 g/dL 05/22 11:21 AM [facility] Not Available Not Available 09/05/2024 11:38:08 05/22/20 24 05/22/2024 Compr ehens arleth metab olic 2000 panel - Serum or Plasm a albumin/glob ulin [mass ratio] in serum or plasma 1.3 low: 1high: 2.2 A/G RATIO 1.3 1.0 - 2.2 05/22 11:21 AM [facility] Not Available Not Available 09/05/2024 11:38:08 05/22/20 24 05/22/2024 Compr ehens arleth metab olic 2000 panel - Serum or Plasm a calcium [mass/volume ] in serum or plasma 9.8 mg/dL low: 8.7mg/ dLhigh : 10.5mg /dL CALCI UM 9.8 8.7 - 10.5 mg/dL 05/22 11:21 AM [facility] [employer] Health AdvisersE R LAB Not Available Not Available 09/05/2024 11:38:08 05/22/20 24 05/22/[address] [facility] arleth metab olic 2000 panel - Serum or Plasm a bilirubin.to sae [mass/volume ] in serum or plasma 0.6 mg/dL low: 0.2mg/ dLhigh : 1.2mg/ dL T BILI 0.6 0.2 - 1.2 mg/dL 05/22 11:21 AM [facility] Not Available Not Available 09/05/2024 11:38:08 05/22/20 24 05/22/[address] [facility] arleth metab olic 2000 panel - Serum or Plasm a aspartate aminotransfe rase [enzymatic activity/vol ume] in serum or plasma 30 U/L low: 5U/Lhi gh: 34U/L SGOT (AST) 30 5 - 34 U/L 05/22 11:21 AM [facility] Not Available Not Available 09/05/2024 11:38:08 05/22/20 24 05/22/2024 Compr [facility] arleth Pearlfection olic 1999 panel - Serum or Plasm a alanine aminotransfe rase [enzymatic activity/vol ume] in serum or plasma 11 U/L low: 0U/Lhi gh: 55U/L SGPT (ALT) 11 0 - 55 U/L 05/22 11:21 AM INSTRUCTOR 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 TECHNICIAN [facility] Aura SystemsT Altia CENTE R LAB Not Available Not Available 09/05/2024 11:38:08 05/22/20 24 05/22/[address] [facility]aling[employer] arleth metab olic 1999 panel - Serum or Plasm a alkaline phosphatase [enzymatic activity/vol ume] in serum or plasma 63 U/L low: 40U/Lh igh: 150U/L ALKAL INE PHOSP HATAS E 63 40 - 150 U/L 05/22 11:21 AM INSTRUCTOR ADJUNCT SURGICAL TECHNICIAN [facility] Aura SystemsT H Consumer Health AdvisersE R LAB Not Available Not Available 09/05/2024 11:38:08 05/22/20 24 05/22/2024 Compr [facility] arleth Pearlfection olic 1999 panel - Serum or Plasm a glomerular filtration rate/1.73 sq M.predicted among non-blacks [volume rate/area] in serum, plasma or blood by creatinine-b ased formula (MDRD) 20 low: 60 low GFR, ESTIM ATED 20 (L) >=60 05/22 11:21 AM INSTRUCTOR ADJUNCT SURGICAL TECHNICIAN [facility] [employer] VitrueE R LAB Not Available Not Available 09/05/2024 11:38:08 05/22/20 24 05/22/[address] [facility]aling[employer] arleth metab olic 1999 panel - Serum or Plasm a glomerular filtration rate/1.73 sq M.predicted among blacks [volume rate/area] in serum, plasma or blood by creatinine-b ased formula (MDRD) 23 low: 60 low GFR, EST. AFRIC AN 23 (L) >=60 05/22 11:21 AM INSTRUCTOR ADJUNCT SURGICAL TECHNICIAN [facility] Aura SystemsT H CENTE R LAB Not Available Not Available 09/05/2024 11:38:08 05/22/20 24 05/22/[address] [employer] arleth metab olic 2000 panel - Serum or Plasm a glomerular filtration rate/1.73 sq M.predicted among non-blacks [volume rate/area] in serum, plasma or blood by creatinine-b ased formula (MDRD) 19 low: 60 low GFR, EST. NONAF RICAN 19 (L) >=60 05/22 11:21 AM INSTRUCTOR ADJUNCT SURGICAL TECHNICIAN [facility] Not Available Not Available 09/05/2024 11:38:08 05/22/20 24 05/22/2024 Compr ehens arleth metab olic 1999 panel - Serum or Plasm a interpretati on and review of laboratory results Abnorm al Not Available Not Available 11:38:08 05/23/20 24 05/23/2024 Hemog lobin A1c/H emogl obin. total in Blood hemoglobin A1C/hemoglob in.total in blood 7.6 % high: 5.6% high Hemog lobin A1c 7.6 (H) <=5.6 % 05/23 12:38 PM INSTRUCTOR ADJUNCT SURGICAL TECHNICIAN [facility] ATORY HOSPI SAE Not Available Not Available 09/05/2024 11:37:29 05/23/20 24 05/23/2024 Hemog lobin A1c/H emogl obin. total in Blood glucose mean value [mass/volume ] in blood estimated from glycated hemoglobin 171 mg/dL Estim alexander cuadra Gluco se 171 mg/dL 05/23 12:38 PM INSTRUCTOR ADJUNCT SURGICAL TECHNICIAN [facility] Not Available Not Available 09/05/2024 11:37:29 05/23/20 24 05/23/2024 Hemog lobin A1c/H emogl obin. total in Blood interpretati on and review of laboratory results Abnorm al Not Available Not Available 11:37:29 05/25/20 24 05/25/2024 Renal funct ion 1999 panel - Serum or Plasm a urea nitrogen [mass/volume ] in serum or plasma 37 mg/dL low: 7mg/dL high: 26mg/d L high BUN 37 (H) 7 - 26 mg/dL 05/25 7:00 AM INSTRUCTOR ADJUNCT SURGICAL TECHNICIAN [facility] AfterYes ATORY HOSPI SAE Not Available Not Available 09/05/2024 11:37:29 05/25/20 24 05/25/2024 Renal funct ion 1999 panel - Serum or Plasm a creatinine [mass/volume ] in serum or plasma 1.58 mg/dL low: 0.56mg /dLhig h: 0.96mg /dL high Creat inine 1.58 (H) 0.56 - 0.96 mg/dL 05/25 7:00 AM [facility] [employer] ATORY HOS[facility] Not Available Not Available 09/05/2024 11:37:29 05/25/20 24 05/25/2024 Renal funct ion 1999 panel - Serum or Plasm a sodium [moles/volum e] in serum or plasma 139 mmol/ L low: 136mmo l/Lhig h: 145mmo l/L Sodiu m 139 136 - 145 mmol/ L 05/25 7:00 AM [facility] AfterYes ATORY HOSPI SAE Not Available Not Available 09/05/2024 11:37:29 05/25/20 24 05/25/2024 Renal funct ion 1999 panel - Serum or Plasm a potassium [moles/volum e] in serum or plasma 4.3 mmol/ L low: 3.5mmo l/Lhig h: 4.5mmo l/L Potas sium 4.3 3.5 - 4.5 mmol/ L 05/25 7:00 AM [facility] AfterYes ATORY HOSPI [facility] Not Available Not Available 09/05/2024 11:37:29 05/25/20 24 05/25/2024 Renal funct ion 1999 panel - Serum or Plasm a chloride [moles/volum e] in serum or plasma 104 mmol/ L low: 98mmol /Lhigh : 107mmo l/L Chlor hina 104 98 - 107 mmol/ L 05/25 7:00 AM [facility] AfterYes ATORY HOSPI SAE Not Available Not Available 09/05/2024 11:37:29 05/25/20 24 05/25/2024 Renal funct ion 1999 panel - Serum or Plasm a carbon dioxide, total [moles/volum e] in serum or plasma 25 mmol/ L low: 22mmol /Lhigh : 29mmol /L CO2 25 22 - 29 mmol/ L 05/25 7:00 AM [facility] [employer] ATORY [facility] Not Available Not Available 09/05/2024 11:37:29 05/25/20 24 05/25/2024 Renal funct ion 1999 panel - Serum or Plasm a glucose [mass/volume ] in serum or plasma 292 mg/dL low: 70mg/d Lhigh: 99mg/d L high Gluco se 292 (H) 70 - 99 mg/dL 05/25 7:00 AM [employer] ATORY [facility]OS[facility] Not Available Not Available 09/05/2024 11:37:29 05/25/20 24 05/25/2024 Renal funct ion 1999 panel - Serum or Plasm a albumin [mass/volume ] in serum or plasma by bromocresol green (bcg) dye binding method 2.3 g/dL low: 3.4g/d Lhigh: 5g/dL low Album in 2.3 (L) 3.4 - 5.0 g/dL 05/25 7:00 AM [employer] [facility] Not Available Not Available 09/05/2024 11:37:29 05/25/20 24 05/25/2024 Renal funct ion 1999 panel - Serum or Plasm a calcium [moles/volum e] in serum or plasma 8.9 mg/dL low: 8.4mg/ dLhigh : 10.2mg /dL Calci um 8.9 8.4 - 10.2 mg/dL 05/25 7:00 AM [employer] [facility] Not Available Not Available 09/05/2024 11:37:29 05/25/20 24 05/25/2024 Renal funct ion 1999 panel - Serum or Plasm a phosphate [mass/volume ] in serum or plasma 4.2 mg/dL low: 2.9mg/ dLhigh : 5.1mg/ dL Phosp horus 4.2 2.9 - 5.1 mg/dL 05/25 7:00 AM [employer] [facility] Not Available Not Available 09/05/2024 11:37:29 05/25/20 24 05/25/2024 Renal funct ion 1999 panel - Serum or Plasm a anion gap 10 low: 6high: 16 Anion Gap 10 6 - 16 05/25 7:00 AM INSTRUCTOR ADJUNCT SURGICAL TECHNICIAN [employer] [facility] Not Available Not Available 09/05/2024 11:37:29 11/14/05/25/2024 Renal funct ion 1999 panel - Serum or Plasm a urea nitrogen/cre atinine [mass ratio] in serum or plasma 23 low: 7high: 23 BUN/C reati nine Ratio 23 7 - 23 05/25 7:00 AM INSTRUCTOR ADJUNCT SURGICAL TECHNICIAN [employer] [facility] Not Available Not Available 09/05/2024 11:37:29 05/25/20 24 05/25/2024 Renal funct ion 2000 panel - Serum or Plasm a osmolality calculated 307 text: 275 - 295 mOsm/k g high Osmol ality Calcu lated 307 (H) 275 - 295 mOsm/ kg 05/25 7:00 AM INSTRUCTOR ADJUNCT SURGICAL TECHNICIAN [employer] [facility] Not Available Not Available 09/05/2024 11:37:29 05/25/20 24 05/25/2024 Renal funct ion 2000 panel - Serum or Plasm a glomerular filtration rate/1.73 sq M.predicted [volume rate/area] in serum, plasma or blood by creatinine-b ased formula (CKD-epi 2020) 36 text: >=90 mL/min /1.73 m2 low eGFR by CKD-E PI 36 (L) >=90 mL/mi n/1.7 3 m2 05/25 7:00 AM INSTRUCTOR ADJUNCT SURGICAL TECHNICIAN [employer] [facility] Not Available Not Available 09/05/2024 11:37:29 05/25/20 24 05/25/2024 Renal funct ion 2000 panel - Serum or Plasm a interpretati on and review of laboratory results Abnorm al Not Available Not Available 11:37:29 05/29/20 24 05/29/2024 Gluco se [Mass /volu me] in Blood glucose [mass/volume ] in blood 190 mg/dL low: 70mg/d Lhigh: 99mg/d L high GLUCO SE,BE DSIDE POCT 190 (H) 70 - 99 mg/dL 05/29 11:15 AM INSTRUCTOR ADJUNCT SURGICAL TECHNICIAN [facility] Not Available Not Available 09/22/2024 03:11:07 05/29/20 24 05/29/2024 Gluco se [Mass /volu me] in Blood interpretati on and review of laboratory results Abnorm al Not Available Not Available 03:11:07 05/29/20 24 05/29/2024 Manua l Diffe renti al band form neutrophils/ 100 leukocytes in blood by manual count 2 % BANDS % 2.0 % 05/29 5:28 AM INSTRUCTOR ADJUNCT SURGICAL TECHNICIAN [facility] Not Available Not Available 09/22/2024 03:11:06 05/29/20 24 05/29/2024 Manua l Diffe renti al neutrophils/ 100 leukocytes in blood by manual count 61 % low: 47%hig h: 73% NEUTR OPHIL S % 61.0 47.0 - 73.0 % 05/29 5:28 AM INSTRUCTOR ADJUNCT SURGICAL TECHNICIAN [facility] Not Available Not Available 09/22/2024 03:11:06 05/29/20 24 05/29/2024 Manua l Diffe renti al lymphocytes/ 100 leukocytes in blood by manual count 21 % low: 18%hig h: 42% LYMPH OCYTE S % 21.0 18.0 - 42.0 % 05/29 5:28 AM INSTRUCTOR ADJUNCT SURGICAL TECHNICIAN [facility] Not Available Not Available 09/22/2024 03:11:06 05/29/20 24 05/29/2024 Manua l Diffe renti al monocytes/10 0 leukocytes in blood by manual count 14 % low: 4%high : 12% high MONOC YTES % 14.0 (H) 4.0 - 12.0 % 05/29 5:28 AM INSTRUCTOR ADJUNCT SURGICAL TECHNICIAN [facility] Not Available Not Available 09/22/2024 03:11:06 05/29/20 24 05/29/2024 Manua l Diffe renti al eosinophils/ 100 leukocytes in blood by manual count 2 % low: 0%high : 5% EOSIN OPHIL S % 2.0 0.0 - 5.0 % 05/29 5:28 AM INSTRUCTOR ADJUNCT SURGICAL TECHNICIAN [facility] Not Available Not Available 09/22/2024 03:11:06 05/29/20 24 05/29/2024 Manua l Diffe renti al neutrophils [#/volume] in blood by manual count 6.73 text: 1.60 - 7.70 10(3)/ mcL NEUTR OPHIL S ABSOL UNALAKLEET 6.73 1.60 - 7.70 10(3) /mcL 05/29 5:28 AM INSTRUCTOR ADJUNCT SURGICAL TECHNICIAN [facility] Not Available Not Available 09/22/2024 03:11:06 05/29/20 24 05/29/2024 Josea l Diffe renti al lymphocytes [#/volume] in blood by manual count 2.24 text: 1.30 - 3.20 10(3)/ mcL LYMPH OCYTE S ABSOL UNALAKLEET 2.24 1.30 - 3.20 10(3) /mcL 05/29 5:28 AM INSTRUCTOR ADJUNCT SURGICAL TECHNICIAN [facility] LAB Not Available Not Available 09/22/2024 03:11:06 05/29/20 24 05/29/2024 Rigoberto l Diffe renti al monocytes [#/volume] in blood by manual count 1.5 text: 0.20 - 1.00 10(3)/ mcL high MONOC YTES ABSOL UNALAKLEET 1.50 (H) 0.20 - 1.00 10(3) /mcL 05/29 5:28 AM INSTRUCTOR ADJUNCT SURGICAL TECHNICIAN [facility] Not Available Not Available 09/22/2024 03:11:06 05/29/20 24 05/29/2024 Rigoberto mandel Diffe renti al eosinophils [#/volume] in blood by manual count 0.21 text: 0.00 - 0.40 10(3)/ mcL EOSIN OPHIL S ABSOL UNALAKLEET 0.21 0.00 - 0.40 10(3) /mcL 05/29 5:28 AM INSTRUCTOR ADJUNCT SURGICAL TECHNICIAN [facility] Not Available Not Available 09/22/2024 03:11:06 05/29/20 24 05/29/2024 Rigoberto Ibarrae ramonti al polychromasi a [presence] in blood by light microscopy 1+ POLYC HROMA REBEKAH 1+ 05/29 5:28 AM INSTRUCTOR ADJUNCT SURGICAL TECHNICIAN [facility] Not Available Not Available 09/22/2024 03:11:06 05/29/20 24 05/29/2024 Rigoberto salazar al leukocyte morphology finding [identifier] in blood Normal WBC MORPH STATU S Rosa l 05/29 5:28 AM INSTRUCTOR ADJUNCT SURGICAL TECHNICIAN [facility] Not Available Not Available 09/22/2024 03:11:06 05/29/20 24 05/29/2024 Josea ministerio Diffe renti al platelet morphology finding [identifier] in blood Normal PLATE LET STATU S Rosa l 05/29 5:28 AM INSTRUCTOR ADJUNCT SURGICAL TECHNICIAN [facility] Not Available Not Available 09/22/2024 03:11:06 05/29/20 24 05/29/2024 Rigoberto mandel Diffe renti al interpretati on and review of laboratory results Abnorm al Not Available Not Available 03:11:06 05/29/20 24 05/29/2024 CBC W Auto Diffe renti al panel - Blood leukocytes [#/volume] in blood by automated count 10.68 text: 4.00 - 12.00 10(3)/ mcL WBC 10.68 4.00 - 12.00 10(3) /mcL 05/29 5:28 AM INSTRUCTOR ADJUNCT SURGICAL TECHNICIAN [facility] Not Available Not Available 09/22/2024 03:11:06 05/29/20 24 05/29/2024 CBC W Auto Diffe renti al panel - Blood erythrocytes [#/volume] in blood by automated count 3.53 text: 3.80 - 5.30 10(6)/ mcL low RBC 3.53 (L) 3.80 - 5.30 10(6) /mcL 05/29 5:28 AM INSTRUCTOR ADJUNCT SURGICAL TECHNICIAN [facility] Not Available Not Available 09/22/2024 03:11:06 05/29/20 24 05/29/2024 CBC W Auto Diffe renti al panel - Blood hemoglobin [mass/volume ] in blood 11.5 g/dL low: 12g/dL high: 15.8g/ dL low HEMOG LOBIN (HGB) 11.5 (L) 12.0 - 15.8 g/dL 05/29 5:28 AM INSTRUCTOR ADJUNCT SURGICAL TECHNICIAN [facility] Not Available Not Available 09/22/2024 03:11:06 05/29/20 24 05/29/2024 CBC W Auto Diffe renti al panel - Blood hematocrit [volume fraction] of blood by automated count 35.8 % low: 36%hig h: 47% low HEMAT OCRIT (HCT) 35.8 (L) 36.0 - 47.0 % 05/29 5:28 AM [facility] Not Available Not Available 09/22/2024 03:11:06 05/29/20 24 05/29/2024 CBC W Auto Diffe renti al panel - Blood MCV [entitic volume] by automated count 101.4 fL low: 82fLhi gh: 96fL high MCV 101.4 (H) 82.0 - 96.0 fL 05/29 5:28 AM [facility] Not Available Not Available 09/22/2024 03:11:06 05/29/20 24 05/29/2024 CBC W Auto Diffe renti al panel - Blood MCH [entitic mass] by automated count 32.6 pg low: 26pghi gh: 34pg MCH 32.6 26.0 - 34.0 pg 05/29 5:28 AM [facility] Not Available Not Available 09/22/2024 03:11:06 05/29/20 24 05/29/2024 CBC W Auto Diffe renti al panel - Blood MCHC [mass/volume ] by automated count 32.1 g/dL low: 31g/dL high: 36g/dL MCHC 32.1 31.0 - 36.0 g/dL 05/29 5:28 AM [facility] Not Available Not Available 09/22/2024 03:11:06 05/29/20 24 05/29/2024 CBC W Auto Diffe renti al panel - Blood platelets [#/volume] in blood 234 text: 140 - 440 10(3)/ mcL PLATE LET COUNT 234 140 - 440 10(3) /mcL 05/29 5:28 AM [facility] Not Available Not Available 09/22/2024 03:11:06 05/29/20 24 05/29/2024 CBC W Auto Diffe renti al panel - Blood erythrocyte distribution width [ratio] by automated count 14.6 % low: 11.8%h igh: 15.5% RDW 14.6 11.8 - 15.5 % 05/29 5:28 AM INSTRUCTOR ADJUNCT SURGICAL TECHNICIAN [facility] [employer] SystemsT H CENTE R LAB Not Available Not Available 09/22/2024 03:11:06 05/29/20 24 05/29/2024 CBC W Auto Diffe renti al panel - Blood platelet mean volume [entitic volume] in blood by automated count 11.3 fL low: 9.7fLh igh: 12.4fL MPV 11.3 9.7 - 12.4 fL 05/29 5:28 AM INSTRUCTOR ADJUNCT SURGICAL TECHNICIAN [facility] Aura SystemsT H CENTE R LAB Not Available Not Available 09/22/2024 03:11:06 05/29/20 24 05/29/2024 CBC W Auto Diffe renti al panel - Blood nucleated erythrocytes /100 leukocytes [ratio] in blood 0 NRBC PER 100 WBC 0 05/29 5:28 AM INSTRUCTOR ADJUNCT SURGICAL TECHNICIAN [facility] SystemsT H CENTE R LAB Not Available Not Available 09/22/2024 03:11:06 05/29/20 24 05/29/2024 CBC W Auto Diffe renti al panel - Blood assistant center manager review of results Yes RESUL TS ARE CONSI STENT WITH PERIP HERAL SMEAR REVIE W Yes 05/29 5:28 AM INSTRUCTOR ADJUNCT SURGICAL TECHNICIAN [facility] SystemsT H CENTE R LAB Not Available Not Available 09/22/2024 03:11:06 05/29/20 24 05/29/2024 CBC W Auto Diffe renti al panel - Blood erythrocytes [morphology] in blood by automated count Yes RBC MORPH OLOGY CONSI STENT WITH INDIC ES Yes 05/29 5:28 AM INSTRUCTOR ADJUNCT SURGICAL TECHNICIAN [facility] SystemsT H CENTE R LAB Not Available Not Available 09/22/2024 03:11:06 05/29/20 24 05/29/2024 CBC W Auto Diffe renti al panel - Blood interpretati on and review of laboratory results Nicol archer Not Available Not Available 03:11:06 05/29/20 24 05/29/2024 Basic metab olic 1999 panel - Serum or Plasm a sodium [moles/volum e] in serum or plasma 138 mmol/ L low: 136mmo l/Lhig h: 145mmo l/L SODIU M 138 136 - 145 mmol/ L 05/29 5:20 AM INSTRUCTOR ADJUNCT SURGICAL TECHNICIAN [facility] [employer] [facility] [employer] R LAB Not Available Not Available 09/22/2024 03:11:06 05/29/20 24 05/29/2024 Basic metab olic 1999 panel - Serum or Plasm a potassium [moles/volum e] in serum or plasma 4.3 mmol/ L low: 3.5mmo l/Lhig h: 5.1mmo l/L POTAS SIUM 4.3 3.5 - 5.1 mmol/ L 05/29 5:20 AM INSTRUCTOR ADJUNCT SURGICAL TECHNICIAN [facility] Health AdvisersE R LAB Not Available Not Available 09/22/2024 03:11:06 05/29/20 24 05/29/2024 Basic metab olic 2000 panel - Serum or Plasm a chloride [moles/volum e] in serum or plasma 106 mmol/ L low: 98mmol /Lhigh : 107mmo l/L CHLOR HINA 106 98 - 107 mmol/ L 05/29 5:20 AM INSTRUCTOR ADJUNCT SURGICAL TECHNICIAN [facility] [employer] SystemsT [employer] [facility] Ad[facility]ersE R LAB Not Available Not Available 09/22/2024 03:11:06 05/29/20 24 05/29/2024 Basic metab olic 1999 panel - Serum or Plasm a carbon dioxide, total [moles/volum e] in serum or plasma 24 mmol/ L low: 22mmol /Lhigh : 30mmol /L CO2, VENOU S 24 22 - 30 mmol/ L 05/29 5:20 AM INSTRUCTOR ADJUNCT SURGICAL TECHNICIAN [facility] Not Available Not Available 09/22/2024 03:11:06 05/29/20 24 05/29/2024 Basic metab olic 2000 panel - Serum or Plasm a anion gap in serum or plasma 12.3 mmol/ L high: 18mmol /L ANION GAP 12.3 <18.0 mmol/ L 05/29 5:20 AM [facility] Not Available Not Available 09/22/2024 03:11:06 05/29/20 24 05/29/2024 Basic metab olic 2000 panel - Serum or Plasm a glucose [mass/volume ] in serum or plasma 193 mg/dL low: 70mg/d Lhigh: 99mg/d L high GLUCO SE 193 (H) 70 - 99 mg/dL 05/29 5:20 AM [facility] Not Available Not Available 09/22/2024 03:11:06 05/29/20 24 05/29/2024 Basic metab olic 2000 panel - Serum or Plasm a urea nitrogen [mass/volume ] in serum or plasma 33 mg/dL low: 10mg/d Lhigh: 20mg/d L high BUN 33 (H) 10 - 20 mg/dL 05/29 5:20 AM [facility] [employer] [facility] [employer] R LAB Not Available Not Available 09/22/2024 03:11:06 05/29/20 24 05/29/2024 Basic metab olic 2000 panel - Serum or Plasm a creatinine [mass/volume ] in serum or plasma 1.36 mg/dL low: 0.6mg/ dLhigh : 1mg/dL high CREAT ININE , BLOOD 1.36 (H) 0.60 - 1.00 mg/dL 05/29 5:20 AM [facility] [employer] [facility] [employer]E R LAB Not Available Not Available 09/22/2024 03:11:06 05/29/20 24 05/29/2024 Basic metab olic 2000 panel - Serum or Plasm a urea nitrogen/cre atinine [mass ratio] in serum or plasma 24 text: 12 - 20 ratio high BUN/C REATI NINE RATIO 24 (H) 12 - 20 ratio 05/29 5:20 AM [facility] Not Available Not Available 09/22/2024 03:11:06 05/29/20 24 05/29/2024 Basic metab olic 2000 panel - Serum or Plasm a calcium [mass/volume ] in serum or plasma 8.9 mg/dL low: 8.7mg/ dLhigh : 10.5mg /dL CALCI UM 8.9 8.7 - 10.5 mg/dL 05/29 5:20 AM [employer] [facility] [employer] [facility] R [facility] Not Available Not Available 09/22/2024 03:11:06 05/29/20 24 05/29/2024 Basic metab olic 2000 panel - Serum or Plasm a glomerular filtration rate/1.73 sq M.predicted among non-blacks [volume rate/area] in serum, plasma or blood by creatinine-b ased formula (MDRD) 43 low: 60 low GFR, ESTIM ATED 43 (L) >=60 05/29 5:20 AM [employer] [facility] [facility] Not Available Not Available 09/22/2024 03:11:06 05/29/20 24 05/29/2024 Basic metab olic 2000 panel - Serum or Plasm a glomerular filtration rate/1.73 sq M.predicted among blacks [volume rate/area] in serum, plasma or blood by creatinine-b ased formula (MDRD) 47 low: 60 low GFR, EST. AFRIC AN 47 (L) >=60 05/29 5:20 AM [employer]CHN[employer] [facility] [employer] [facility] R LAB Not Available Not Available 09/22/2024 03:11:06 05/29/20 24 05/29/2024 Basic metab olic 2000 panel - Serum or Plasm a glomerular filtration rate/1.73 sq M.predicted among non-blacks [volume rate/area] in serum, plasma or blood by creatinine-b ased formula (MDRD) 39 low: 60 low GFR, EST. NONAF RICAN 39 (L) >=60 05/29 5:20 AM [employer]CHN[employer] [facility] Not Available Not Available 09/22/2024 03:11:06 05/29/20 24 05/29/2024 Basic metab olic 2000 panel - Serum or Plasm a interpretati on and review of laboratory results Abnorm al Not Available Not Available 03:11:06 09/12/1909/11/2024 Hemog lobin A1c/H emogl obin. total in Blood hemoglobin A1C/hemoglob in.total in blood 8.3 % low: 4%high : 6% abnormal HGB-A 1C 8.3 (A) 4 - 6 % Not Available Not Available 09/19/2024 05:06:30 09/12/1909/11/2024 Hemog lobin A1c/H emogl obin. total in Blood interpretati on and review of laboratory results Abnorm al Not Available Not Available 05:06:30 Result Notes None recorded. Problems Name Problem SNOMED Code Status Onset Date Resolution Date Notes Provider Name and Address Organization Details Recorded Time Essential hypertens ion 66101417 Active 2021 Nona Higalberto ham [place], [place] - [facility] 4 15:56:47 Hypothyro idism 40385037 Active 2021 Nona Higalberto [place] [facility] 4 15:56:47 Chronic obstructi ve pulmonary disease 72728879 Active 2021 sees pulmo Nona Arroyo [place] [facility] 4 15:56:47 Hyperlipi demia 25642782 Active 2021 Nona Higgenbot [place] [facility] 4 15:56:47 Chronic renal failure 19091175 Active 2021 sees nephro/Dr Steph Bejaranogenbodominic [place] [facility] 4 15:56:47 Bipolar disorder 07329747 Active 2021 with PTSD-sees Dr.Habib Castellano Higgenbodominic [place] [facility] 4 15:56:47 Hydroceph alus 242894601 Active 2021 s/p shunt 2015- sees neurologi st N[place] [facility] 4 15:56:47 Bilateral arthritis of knees [id number] 9108 Active 2021 with back pain /chronic pain Nona Oharabodominic [place] [facility] 4 15:56:47 Osteoporo sis 47534103 Active 2021 dexa- 11/02 Sharon Moya MD Attn: Yariel rockwell,[address] [facility], [place], [address], [place] [facility] 4 14:15:16 Calcifica tion of coronary artery 468256939 Active [address] done by deysimn showed extensive calcifica tion-sees cardio [place] [facility] 4 15:56:47 Occult blood detected in feces 84811016 Active 2021 seen by GI [place] [facility] 4 15:56:47 Rheumatoi d factor detected 537893620 Active 2022 referred to rheumat- has apt in 07/2024 [place] [facility] 4 15:56:47 Atrophic vaginitis 41758516 Active 2023 NONA JACKSON MD Attn: Fidenciorosendo rockwell,[address] [facility], [place], [address], [place] [facility] 4 11:31:18 Recurrent urinary tract infection 555362417 Active 2023 NONA JACKSON MD Attn: Fidenciorosendo g,[address] [place], [address], [place] [facility] 4 11:31:21 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 Please review these documents and add these problems to the patient's chart manually as needed. Problem Notes None recorded. Procedures Surgical History Date Name Laterality Status Provider Name and Address Organization Details Recorded Time 12/10/19 24 Date of Last Mammogram completed Juani HonoravilleJACK tatum [facility] 02/01/2024 11:26:11 07/12/18 92 Total hysterectomy completed Eren Reardon [place] [facility] 10/19/2016 14:26:01 07/12/18 82 Cholecystectomy completed Eren Reardon MA [facility] 10/19/2016 14:26:17 07/12/18 76 Appendectomy completed Eren Reardon MA [facility] 10/19/2016 14:25:41 Imaging Results None recorded. Procedure Notes None recorded. Medical Equipment None Reported. Allergies Allergen ID Allergen Name Allergen Category Reaction Reaction Severity Criticality Documentation Date Start Date Code Code System Note Provider Name and Address Organization Details Recorded Time 6565 Demerol medicatio n Not available Not available Not available 06/18/2014 37968 1 [facility] 14:[facility]49 6566 Tegretol medicatio n Not available Not available Not available 06/18/201420292 9 [facility] 4 14:55:49 27786 Product containin g glucocort icoid (product) medicatio n vomiting Not available Not available 10/19/2016 74874 6006 [facility]ED [facility] 7 14:24:36 Medications Name Sig Start Date Stop Date Status Note LastModified by Organization Details LastModified Time comfort ez mis [id number] 08/11 completed Not Available Not Available Not Available fluoxetin e 40 mg capsule 08/07 completed Not Available Not Available Not Available cyclobenz aprine 10 mg tablet TAKE 1 TABLET BY MOUTH AT BEDTIME 08/11 completed Not Available Not Available Not Available amoxicill in 500 mg capsule 01/27 /2022 completed Not Available Not Available Not Available furosemid e 40 mg tablet TAKE 1 TABLET BY MOUTH TWICE A DAY active Not Available Not Available No t Available methocarb aakash 500 mg tablet 08/07 completed Not Available Not Available Not Available metformin 500 mg tablet 08/11 completed Not Available Not Available Not Available terconazo le 0.4 % vaginal cream INSERT 1 APPLICAT ORFUL EVERY DAY BY VAGINAL ROUTE FOR 7 DAYS, FOR YEAST INFECTIO N. active Not Available Not Available No t Available primidone 50 mg tablet PLEASE SEE ATTACHED FOR DETAILED DIRECTIO NS active Not Available Not Available No t Available promethaz ine-DM 6.25 mg-15 mg/5 mL [...] sulfasala zine 500 mg tablet TAKE 1 (ONE) TABLET BY MOUTH 2 TIMES DAILY active Not Available Not Available [...] tablets twice a day by oral route. 09/22 completed Not Available Not Available Not Available meloxicam 15 mg tablet TAKE 1/2 TABLET BY ORAL ROUTE 2 TIMES EVERY DAY 08/07 completed Not Available Not Available Not Available famotidin e 40 mg tablet TAKE 1 TABLET BY MOUTH AT BEDTIME 2024 active Not Available Not Available Not Avai lable prednison e 20 mg tablet 08/07 completed Not Available Not Available Not Available alendrona te 70 mg tablet TAKE 1 TABLET BY MOUTH EVERY WEEK IN THE MORNING AT LEAST 30 MINUTES BEFORE FOOD 2024 active Not Available Not Available Not Avai lable dexametha sone 6 mg tablet 08/07 completed Not Available Not Available Not Available quetiapin e 200 mg tablet 08/07 completed Not Available Not Available Not Available terconazo le 0.8 % vaginal cream INSERT 1 APPLICAT ORFUL VAGINALL Y EVERY DAY AT BEDTIME FOR 3 DAYS 11/24 completed Not Available Not Available Not Available glipizide ER 5 mg tablet, extended [...] tablet TAKE 1 TABLET BY MOUTH DAILY 2024 active Not Available Not Available Not Avai [...] active Not Available Not Available Not Available hydrocort isone 2.5 % topical cream with perineal applicato r APPLY A THIN LAYER TO THE AFFECTED AREA(S) BY TOPICAL ROUTE 2-4 TIMESDAI LY for 1-2 weeks 2024 active Not Available Not Available Not Avai lable methenami ne hippurate 1 gram tablet TAKE [...] Not Available tamsulosi n 0.4 mg capsule TAKE 1 CAPSULE BY MOUTH TWICE A DAY active Not Available Not [...] APPLY TO AFFECTED AREA TWICE A DAY 09/22 completed Not Available Not Available Not Available prednison e 50 mg tablet 08/07 completed Not Available Not Available Not Available Cranberry Concentra te 140 mg-100 mg capsule TAKE 1 BY ORAL ROUTE ONCE 08/07 completed Not Available Not Available Not Available levothyro xine 150 mcg tablet TAKE 1 TABLET BY MOUTH EVERY MORNING ON EMPTY STOMACH 2024 active Not Available Not Available Not Avai [...] Not Available hydroxych loroquine 200 mg tablet 09/22 completed Not Available Not Available Not Available levofloxa shobha 500 mg tablet TAKE 1 TABLET BY MOUTH EVERY DAY 08/07 completed Not Available Not Available Not Available estradiol 0.01% (0.1 mg/gram) vaginal cream APPLY 1 (ONE) GRAM TO VAGINA EVERY WEDNESDAY, , WEDNESDAY active Not Available Not Available No t Available levofloxa shobha 750 mg tablet TAKE 1 TABLET BY MOUTH EVERY DAY FOR 5 DAYS 09/22 completed Not Available Not Available Not Available methylpre dnisolone 4 mg tablets in [...] Not Available doxycycli ne hyclate 100 mg tablet TAKE 1 TABLET BY MOUTH TWICE A DAY 09/22 completed Not Available Not Available Not Available ipratropi um bromide 21 mcg (0.03 %) nasal spray ADMINIST ER 2 SPRAYS INTO EACH NOSTRIL EVERY 12 HOURS. active Not Available Not Available No t Available loratadin e 10 mg tablet TAKE 1 TABLET BY MOUTH DAILY 2024 active Not Available Not Available Not Avai labjacques risperido ne 0.5 mg tablet active Not Available Not Available Not Available amoxicill in 875 mg-potass ium clavulana te 125 mg tablet TAKE 1 TABLET BY MOUTH 2 TIMES A DAY FOR 14 DAYS. 09/22 completed Not Available Not Available Not Available amoxicill in 500 mg-potass ium clavulana te 125 mg tablet TAKE 1 TABLET BY MOUTH EVERY 12 HOURS FOR 7 DAYS 11/17 completed Not Available Not Available Not Available buspirone 15 mg tablet TAKE 1 TABLET BY MOUTH THREE TIMES DAILY active Not Available Not Available No t Available insulin lispro (U-100) 100 unit/mL subcutane ous pen INJECT 12 UNITS UNDER THE SKIN BEFORE EACH MEAL + CORRECTI ONAL FACTOR INSULIN (MAX 50 UNITS PER DAY) active Not Available Not [...] te/macroc rystals 100 mg capsule TAKE 1 CAPSULE BY MOUTH TWICE A DAY WITH MEAL OR FOOD active Not Available Not Available No t Available Enablex 15 mg tablet,ex tended release [...] capsule twice a day by oral route. 09/22 completed Not Available Not Available Not Available BD Ultra-Fin e Short Pen Needle 31 gauge x 5/16 08/11 completed Not Available Not Available Not Available Januvia 50 mg tablet TAKE 1 TABLET BY MOUTH IN THE MORNING 08/11 completed Not Available Not Available Not Available Lantus Solostar U-100 Insulin 100 unit/mL (3 mL) subcutane ous pen INJECT 15 UNITS SUBCUTAN EOUSLY NIGHTLY active Not Available Not Available No t Available All Day Allergy (cetirizi ne) 10 mg tablet TAKE 1 TABLET BY MOUTH DAILY 08/07 completed Not Available Not Available Not Available diclofena c 1 % topical gel APPLY 2 GRAMS TO THE AFFECTED AREA(S) BY TOPICAL ROUTE 3 TIMES PER DAY 09/22 completed Not Available Not Available Not Available Toviaz 8 mg tablet,ex tended release 08/07 completed Not Available Not Available Not Available loratadin e 5 mg disintegr ating tablet Take 1 tablet every day by oral route as needed, for allergie s. 2024 active Not Available Not Available Not Avai lable OneTouch Verio test strips 4 TIMES A DAY 09/22 completed Not Available Not Available Not Available Myrbetriq 50 mg tablet,ex tended release 08/07 completed Not Available Not Available Not Available Spiriva Respimat 2.5 mcg/actua tion solution for inhalatio n 11/04 completed Not Available Not Available Not Available Yuvafem 10 mcg vaginal tablet INSERT 1 TABLET VAGINALL Y TWICE A WEEK 11/24 completed Not Available Not Available Not Available Linzess 72 mcg capsule TAKE 1 CAPSULE BY MOUTH EVERY DAY active Not Available Not Available No t Available Trelegy Ellipta 100 mcg-62.5 mcg-25 mcg powder for inhalatio n TAKE 1 PUFF BY MOUTH EVERY DAY active Not Available Not Available No t Available Imvexxy Maintenan ce Pack 4 mcg vaginal insert active Not Available Not Available Not Available BD Akanksha 2nd Gen Pen Needle 32 gauge x 5/32 USE TO INJECT INSULIN 4X DAILY. 09/22 completed Not Available Not Available Not Available OneTouch Delica Plus Lancet 33 gauge 1 LANCET 4 TIMES DAILY. TEST BLOOD GLUCOSE 3X DAILY. E11.42, INSULIN DEPENDEN T 09/22 completed Not Available Not Available Not Available OneTouch Delica Plus Lancet 30 gauge 4 TIMES A DAY 09/22 completed Not Available Not Available Not Available OneTouch Verio Reflect Meter USE DIRECTED TO TEST BLOOD GLUCOSE 3 TIMES DAILY 09/29 completed Not Available Not Available Not Available Ozempic 1 mg/dose (4 mg/3 mL) subcutane ous pen injector INJECT 1 MG SUBCUTAN EOUSLY ONCE A WEEK 09/22 completed not using Not Available Not Available Not Available Ozempic 0.25 mg or 0.5 mg (2 mg/3 mL) subcutane ous pen injector INJECT 0.25 MG SUBCUTAN EOUSLY WEEKLY FOR 4 WEEKS, THEN 0.5MG WEEKLY FOR 4 WEEKS 01/31 completed Not Available Not Available Not Available Klayesta 100,000 unit/gram topical powder APPLY TO THE AFFECTED AREA THREE TIMES DAILY FOR 14 DAYS. 09/22 completed Not Available Not Available Not Available Vitals Date Recorded Body height Respiratory rate Body temperature Oxygen saturation Oxygen saturation in Arterial blood by Pulse oximetry Heart rate Systolic blood pressure Diastolic blood pressure Provider Name and Address Organization Details Last Updated DateTime 5 175.26 cm 14 /min 97.2 [degF] 97 % 97 % 72 /min 120 mm[Hg] 69 mm[Hg] Bouchra JACK Gaytan [place] - [facility] 5 15:33:02 Date Recorded Body height Body mass index (BMI) Body weight Body temperature Oxygen saturation Oxygen saturation in Arterial blood by Pulse oximetry Respiratory rate Heart rate Systolic blood pressure Diastolic blood pressure Provider Name and Address Organization Details Last Updated DateTime 5 175.26 cm 32.3 kg/m2 51541.7 3 g 96.9 [degF] 96 % 96 % 16 /min 78 /min 118 mm[Hg] 69 mm[Hg] Brittany Bragg [place] - [facility] 5 11:48:09 Date Recorded Body height Body mass index (BMI) Body weight Oxygen saturation Oxygen saturation in Arterial blood by Pulse oximetry Heart rate Body temperature Systolic blood pressure Diastolic blood pressure Provider Name and Address Organization Details Last Updated DateTime 5 175.26 cm 30.2 kg/m2 19749.2 4 g 96 % 96 % 83 /min 96.8 [degF] 147 mm[Hg] 80 mm[Hg] Juani Toure [facility] 5 11:10:28 Date Recorded Body height Oxygen saturation Oxygen saturation in Arterial blood by Pulse oximetry Heart rate Respiratory rate Body temperature Systolic blood pressure Diastolic blood pressure Provider Name and Address Organization Details Last Updated DateTime 4 175.26 cm 96 % 96 % 85 /min 16 /min 97.7 [degF] 131 mm[Hg] 80 mm[Hg] Yanira Lo [place] - [facility] 4 11:34:12 Date Recorded Body height Body mass index (BMI) Body weight Heart rate Respiratory rate Body temperature Oxygen saturation Oxygen saturation in Arterial blood by Pulse oximetry Systolic blood pressure Diastolic blood pressure Provider Name and Address Organization Details Last Updated DateTime 4 175.26 cm 33.2 kg/m2 333223. 28 g 96 /min 16 /min 97.9 [degF] 98 % 98 % 108 mm[Hg] 66 mm[Hg] Michelle JACK Gilliam [place] - [facility] 12:11:52 Social History Question Answer Notes LastModified by Organizat ion Details LastModified Time Tobacco Smoking Status Former Smoker cigarettes Bouchra GaytanJACK [place] [facility] 08/07/2021 10:38:06 Are You Blind Or Do You Have Difficulty Seeing? Yes Glasses Information not available 08/07/2021 What Is Your Level Of Caffeine Consumption? Moderate Information not available 08/07/2021 In The 14 Days Before Symptom Onset, Have You Had Close Contact With A Laboratory-confi rmed COVID-19 While That Case Was Ill? No Information not available 08/07/2021 In The 14 Days Before Symptom Onset, Have You Had Close Contact With A Person Who Is Under Investigation For COVID-19 While That Person Was Ill? No Information not available 08/07/2021 Have You Been To An Area Known To Be High Risk For COVID-19? No Lives In Residential Information not available 09/17/2021 Are You Deaf Or Do You Have Serious Difficulty Hearing? Yes Both Ears Information not available 08/07/2021 What Type Of Diet Are You Following? REGULAR Low Carb [id number] Information not available 08/22/2021 What Is The Highest Grade Or Level Of School You Have Completed Or The Highest Degree You Have Received? [id number] Information not available 08/07/2021 Are There Any Guns Present In Your Home? No Information not available 08/07/2021 What Was The Date Of Your Most Recent Tobacco Screening? 11/24/2024 Information not available 11/24/2024 What Is Your Relationship Status? Information not available 08/07/2021 Do You Use Your Seat Belt Or Car Seat Routinely? Yes Information not available 08/07/2021 Are You Sexually Active? No Information not available 11/18/2023 Do You Have Smoke And Carbon Monoxide Detectors In Your Home? Yes Information not available 08/07/2021 Do You Use Sunscreen Routinely? No Information not available 08/07/2021 Has Tobacco Cessation Counseling Been Provided? No Information not available 08/07/2022 How Many Years Have You Smoked Tobacco? 20 [id number] Information not available 05/14/2020 Sex: Female Functional Status Question Answer Note LastModified by Organization Details LastModified Time Do you use any illicit or recreational drugs? No Information not available 08/07/2021 Do you or have you ever used any other forms of tobacco or nicotine? No Information not available 08/07/2021 What is your level of alcohol consumption? None [id number] Information not available 05/14/2020 Are you currently employed? No disabled Information not available 08/07/2021 Are you able to care for yourself? No gets assiatance Information not available 08/07/2021 What is your exercise level? None Information not available 08/07/2021 What type of noise exposure are you exposed to? noExposureToExcessiveN oise [email or web address] Information not available 07/20/2023 Mental Status Question Answer Note LastModified by Organizat ion Details LastModified Time Do you feel stressed (tense, restless, nervous, or anxious, or unable to sleep at night)? [id number] was worse in skilled nursing Information not available 07/24/2024 Family History Relationship Description Onset Age of this Age Resolved Age Notes LastModified by Organization Details LastModified Time Father Harmful pattern of use of alcohol Not available 10/19 14:29:52 Father Asthma Not available 10/19/2016 14:30:14 Father Cerebrovascu lar accident Not available 14:30:55 Father Dementia Not availab le 10/19/2016 14:31:29 Father Depressive disorder Not available 10/19 14:31:44 Father Diabetes mellitus Not available 10/19 14:32:08 Sister Harmful pattern of use of alcohol Not available 10/19 14:29:52 Sister Harmful pattern of use of alcohol Not available 10/19 14:29:52 Sister Suspected breast cancer Not available 10/19 14:30:40 Sister Diabetes mellitus Not available 10/19 14:32:08 Sister Diabetes mellitus Not available 10/19 14:32:08 Brother Harmful pattern of use of alcohol Not available 10/19 14:29:52 Mother Coronary arterioscler osis Not available 10/19 14:31:16 Mother Heart disease Not available 10/19 14:32:26 Mother Hypertensive disorder Not available 10/19 14:32:40 Medical History Condition Response Coronary Artery Disease N Other N High Blood Pressure Y Atrial Fibrillation N Kidney or Bladder Problems Y Thyroid Problems Y GI Problems Y Depression N COPD Y Blood Clots N Skin Problems N Anemia N Heart Attack (ID) N Anxiety Disorder Y Diabetes Y Muscle, [...] dose 1 completed NONA JACKSON MD Attn: Accounting[address] [place], [address], [place] [facility] 11/18/2023 11:09:36 COVID-19, mRNA, LNP-S, PF, 100 mcg/0.5mL dose or 50 mcg/0.25mL dose 1 completed NONA JACKSON MD Attn: Accounting[address] [place], [address], [place] [facility] 11/18/2023 11:09:36 Influenza, split virus, quadrivalent, preservative 1 completed NONA JACKSON MD Attn: Accounting[address] [facility], [place], [place], [address] [place] [address], [facility] - [facility] 11/18/2023 11:13:35 Influenza, split virus, quadrivalent, preservative 0 completed NONA JACKSON MD Attn: Accounting[address] [facility], [place], [place], [address] [place] [address], [place] [facility] 11/18/2023 11:09:36 Influenza, split virus, quadrivalent, preservative 9 completed NONA JACKSON MD Attn: Accounting,[address] [facility], [place], [address] [place] [address], [facility] - [facility] 11/18/2023 11:09:36 Influenza, adjuvanted, trivalent, PF 9 completed NOAN JACKSON MD Attn: Accounting,[address] [facility], [place], [address] [place] [address], [facility] - [facility] 11/18/2023 11:09:36 SARS-COV-2 (COVID-19) vaccine, UNSPECIFIED 1 completed NONA JACKSON MD Attn: Accounting,[address] [facility], [place], [place], [address] [place] [address], [facility] - [facility] 11/18/2023 11:09:36 pneumococcal polysaccharide PPV23 0 completed NONA JACKSON MD Attn: Accounting,[address] [facility], [place], [address] [place] [address], [place] [facility] 11/18/2023 11:09:36 pneumococcal polysaccharide PPV23 1 completed NONA JACKSON MD Attn: Accounting,[address] [facility], [place], [address] [place] [address], [place] [facility] 11/18/2023 11:13:35 influenza, unspecified formulation 9 completed NONA JACKSON MD Attn: Accounting,[address] [facility], [place], [address] [place] [address], [facility] - [facility] 11/18/2023 11:09:37 Tdap 7 completed NONA JACKSON MD Attn: Accounting,[address] [facility], [place], [address] [place] [address], [facility] - [facility] 11/18/2023 11:09:37 Pneumococcal conjugate PCV 13 7 completed NONA JACKSON MD Attn: Accounting,[address] [facility], [place], [address] [place] [address], [facility] - [facility] 11/18/2023 11:09:37 TST-PPD intradermal 0 completed NONA JACKSON MD Attn: Accounting,[address] [facility], [place], [address] [place] [address], [facility] - [facility] 11/18/2023 11:09:37 Influenza, high-dose, trivalent, PF 4 completed NONA JACKSON MD Attn: Accounting,[address] [facility], [place], [address] [place] [address], [facility] - [facility] 11/18/2023 11:13:35 Influenza, split virus, trivalent, PF 5 completed NONA JACKSON MD Attn: Accounting,[address] [facility], [place], [address] [place] [address], [facility] - [facility] 11/18/2023 11:09:37 Influenza, split virus, trivalent, PF 6 completed NONA JACKSON MD Attn: Accounting,[address] [facility], [place], [address] [place] [address], [facility] - [facility] 11/18/2023 11:09:37 Influenza, split virus, trivalent, PF 7 completed NONA JACKSON MD Attn: Accounting,[address] [facility], [place], [address] [place] [address], [facility] - [facility] 11/18/2023 11:09:37 Influenza, split virus, quadrivalent, PF 8 completed NONA JACKSON MD Attn: Accounting,[address] [facility], [place], [address] [place] [address], [facility] - [facility] 11/18/2023 11:09:37 Influenza, MDCK, trivalent, PF 0 completed NONA JACKSON MD Attn: Accounting,[address] [facility], [place], [address] [place] [address], [place] [facility] 11/18/2023 11:13:35 HepB-CpG 0 completed NONA JACKSON MD Attn: Accounting[address] [place], [address] [place] [address], [facility] - [facility] 11/18/2023 11:11:11 influenza, unspecified formulation 2 completed NONA JACKSON MD Attn: Accounting,[address] [place], [address] [place] [address], [facility] - [facility] 11/18/2023 11:13:35 Influenza, split virus, trivalent, preservative 2 completed NONA JACKSON MD Attn: Accounting,[address] [place], [address] [place] [address], [facility] - [facility] 11/18/2023 11:13:35 Influenza, MDCK, trivalent, PF 2 completed NONA JACKSON MD Attn: Accounting,[address] [place], [address] [place] [address], [facility] - [facility] 11/18/2023 11:13:35 COVID-19, mRNA, LNP-S, PF, 50 mcg/0.5 mL 4 completed Not Available [facility] 11/24/2024 11:03:22 COVID-19, mRNA, LNP-S, PF, 50 mcg/0.5 mL 5 completed Not Available [facility] 11/24/2024 11:03:22 zoster recombinant 5 completed Not Available [facility] 11/24/2024 11:03:22 COVID-19, mRNA, LNP-S, PF, 100 mcg/0.5mL dose or 50 mcg/0.25mL dose 2 completed Bouchra Gaytan MA [facility], [place] [facility] 09/18/2021 14:35:30 COVID-19, mRNA, LNP-S, bivalent, PF, 50 mcg/0.5 mL or 25mcg/0.25 mL dose 3 completed Lin Clay APN, [employer] Attn: Accounting[address] [place], [address], [place] [facility] 09/09/2022 17:30:45 Influenza, split virus, quadrivalent, preservative 3 completed Sharon Moya MD Attn: Accounting[address] [place], [address], [facility] - [facility] 06/25/2023 15:55:11 pneumococcal, unspecified formulation 0 completed Nona Higgenbotham null, ID - [facility] 07/29/2023 15:56:48 tetanus toxoid, unspecified formulation 0 completed Nona Higgenbotham null, ID - [facility] 07/29/2023 15:56:48 Influenza, high-dose, trivalent, PF 4 completed Sharon Moya MD Attn: Accounting[address] [place], [address], [facility] - [facility] 05/05/2024 15:10:30 Pneumococcal conjugate PCV20, polysaccharide [id number] conjugate, adjuvant, PF 5 completed ASHWINI FELDMAN Attn: Accounting[address] [place], [address], [facility] - [facility] 10/15/2024 15:08:57 Past Encounters Encounter ID Performer Location Encounter Start Date Encounter Closed Date Diagnosis/Indication Diagnosis SNOMED-CT Code Diagnosis ICD10 Code Diagnosis Note [id number] Sathish Benedict MD [facility] [address] [place] [address] 06/18/2014 14:13:02 06/18/2014 16:52:12 Type 2 diabetes mellitus 29412342 Last HGbA1c on 10-03-2013 was excellent a 5.9. Adult heal th examination 809967420 Patient already received an influenza vaccinatio n in April 2014. Urinary incontinence 642455311 followed by urologist Dr. Smith at [facility] in [place]. [id number] Tamiko Mullen MD [facility] (Adult Med) [address] [place] [address] 10/19/2016 13:58:24 10/20/2016 10:48:00 Diabetes mellitus 05430925 E11.9 Diabetic low saturated fat diet, .Insulin. Urinary incontinence 165 401702 R32 Generalize d osteoarthritis 209439776 M15.9 Knees and lower back. PT / OT will be offered.Ca lcium/luciana min D . Osteoporosis 39361028 M8 1.0 Daily OTC calcium/vi tamin D daily. Hypothyroidism 23028461 E03.9 Bipolar disorder 1224890 4 F31.[address] [facility], [phone]. [id number] MD Yoselin De Oliveirahalto (Adult Med) [address] [place] [address] 08/07/2021 10:06:22 08/08/2021 06:50:14 Essential hypertension 44857853 I10 - pt is on amlodipine /not sure about lisinopril or losartan Type 2 allegra betes mellitus 70004505 E11.21 -pt is on lantus 28 units hs with humolog tid with meal per endopt is on metformine and some other meds - pt to call with meds Hypothyroidism 21527883 E03.9 pt is on thyroid pill Bipolar disorder 8178087 4 F31.9 meds per Chronic renal failure 90 627375 N18.9 -[facility] Urinary incontinence 165 678395 R32 with h/o hydrocepha lina -s/p shunt - sees urologist Hydrocephalus 036770214 G91.9 s/p shunt -sees urologist [id number] MD Farhat De Oliveira (Adult Med) [address] [place] [address] 08/22/2021 14:52:59 08/25/2021 09:14:51 Essential hypertension 17673407 I10 - pt is on amlodipine Type 2 allegra betes mellitus 56310162 E11.21 -pt is on lantus 28 units hs with humolog tid with meal per endopt is on metformine and some other meds - pt to call with meds Hypothyroidism 86801151 E03.9 pt is on thyroid pill Bipolar disorder 9971339 4 F31.9 meds per Chronic renal failure 90 500849 N18.9 -[facility] Hydrocephalus 478241370 G91.9 s/p shunt -sees urologist [id number] [facility] [address] [place] [address] 09/17/2021 13:24:08 09/18/2021 07:23:33 Pressure injury of sacral region of back 299560335 L89.159 - change position /keep area cleanrefer ral to home health [id number] MD Farhat Uriostegui (Adult Med) [address] [place] [address] 09/18/2021 14:09:46 09/19/2021 11:56:16 Administration of SARS-CoV-2 mRNA vaccine 3214834504 Z23 [id number] MD Farhat De Oliveira (Adult Med) [address] [place] [address] 11/04/2021 13:31:16 11/05/2021 13:28:11 Vaginitis 21292360 N76.0 -improving /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 Type 2 allegra betes mellitus 43728119 E11.21 -pt is on lantus 28 units hs with humolog tid with meal per endopt is off of metformine due to diarrhea Calcificat ion of coronary artery 481826225 I25.84 -CT chest showed per pulmo and wants to be referred to cardio [id number] MD [facility] [address] [place] [address] 12/01/2021 14:53:59 12/02/2021 14:55:40 Essential hypertension 78120790 I10 - pt is on amlodipine Type 2 allegra betes mellitus 47013490 E11.21 -pt is on lantus 28 units hs with humolog tid with meal per endopt is off of metformine due to diarrhea Hypothyroidism 92680619 E03.9 pt is on thyroid pill Bipolar disorder 0578785 4 F31.9 meds per Chronic renal failure 90 819368 N18.9 -[facility] Sinusitis 09725346 J32.9 - pt to try flonase and loratidine Urinary incontinence 165 120209 R32 with h/o hydrocepha lina -s/p shunt - sees urologist [id number] MD [facility] [address] [place] [address] 04/10/2022 13:40:44 04/13/2022 08:21:58 Essential hypertension 26248563 I10 - pt is on amlodipine Type 2 allegra betes mellitus 57348703 E11.21 -pt is on lantus 28 units hs with humolog tid with meal per endopt is off of metformine due to diarrhea Hypothyroidism 31689369 E03.9 pt is on thyroid pill Bipolar disorder 8913972 4 F31.9 meds per Chronic renal failure 90 683171 N18.9 -[facility] Scre[facility] mammography 24 475763 Z12.31 Screening for malignant neoplasm of colon 924618308 Z12.11 Renewal of prescription 092772995 Z76.0 Dependent edema 63189933 4 R60.0 -elevate legs [id number] MD [facility] [address] [place] [address] 05/29/2022 12:17:26 06/02/2022 12:55:38 Dysuria 15562816 R30.0 -urine dipstick -okwill rx symptomati gus /pt to keep good hydrationp t sees urologist as well [id number] MD [facility] [address] [place] [address] 08/07/2022 11:29:22 08/10/2022 10:18:15 Essential hypertension 88524982 I10 - pt is on amlodipine Type 2 allegra betes mellitus 11968370 E11.21 -pt is on lantus 28 units hs with humolog tid with meal per endopt is off of metformine due to diarrhea Chronic renal failure 90 279037 N18.9 -[facility] Bipolar disorder 9428350 4 F31.9 meds per Hydrocephalus 564105387 G91.9 s/p shunt -sees urologist Hypothyroidism 52640989 E03.9 pt is on thyroid pill [id number] MD Farhat Uriostegui (Adult Med) [address] [facility] [address] 09/09/2022 13:52:43 09/09/2022 17:31:36 Administration of SARS-CoV-2 mRNA vaccine 7152078586 Z23 [id number] MD Farhat Uriostegui (Adult Med) [address] [place] [address] 09/09/2022 15:49:34 09/10/2022 03:47:07 [id number] MD Farhat De Oliveira (Adult Med) [address] [facility] [address] 11/03/2022 11:10:38 11/05/2022 09:52:22 Essential hypertension 15693462 I10 - pt is on amlodipine Type 2 allegra betes mellitus 89146782 E11.21 -pt is on lantus 28 units hs with humolog tid with meal per endopt is off of metformine due to diarrhea Bipolar disorder 5060697 4 F31.9 meds per Bilateral arthritis of knees 1795207715 845588 M13.861 M13.862 with back pain- pt is on pregabalin for chronic pain Hydrocephalus 759076699 G91.9 s/p shunt -sees urologist Hyperlipidemia 03910256 E78.5 with coronary calcificat ion -seen by cardio as well-pt is on statin Difficulty walking 75407 2003 R26.2 due to hydrocepha lina/chroni c arthritis of knees and back- pt is wheelchair bound -pt is not safe with walker or cane and risks of falls-pt needs electric wheelchair to complete her adl [id number] MD Farhat De Oliveira (Adult Med) [address] [facility] [address] 03/02/2023 11:31:40 03/03/2023 09:49:26 Essential hypertension 10565231 I10 - pt is on amlodipine Type 2 allegra betes mellitus 62784783 E11.21 -pt is on lantus 28 units hs with humolog tid with meal per endopt is off of metformine due to diarrhea Hypothyroidism 37127682 E03.9 pt is on thyroid pill Bipolar disorder 0221656 4 F31.9 meds per - pt is requesting depakote level Chronic renal failure 90 636060 N18.9 -[facility]- [facility] nsaid Hydrocephalus 619548676 G91.9 s/p shunt -sees urologist Decreased hearing 931502 001 H91.90 [id number] MD [facility] ([facility] [address] [place] [address] 06/25/2023 13:53:46 06/29/2023 12:23:18 Essential hypertension 68367473 I10 - pt is on amlodipine Type 2 allegra betes mellitus 79712828 E11.21 -pt is on lantus 28 units hs with humolog tid with meal per endopt is off of metformine due to diarrhea Hypothyroidism 12635661 E03.9 pt is on thyroid pill Lower urin samantha tract symptoms 361525096 R39.9 possibly due to vaginal atrophy- urine culture showed mixed growthpt was rxed with several antibiotic s by other providers on several occasions - discussed with pt regarding mutliple antibiotic use-pt to follow up with Gynpt is on uti px Hyperlipidemia 85179955 E78.5 with coronary calcificat ion -seen by cardio as well-pt is on statin Administra tion of influenza vaccine 10187419 Z23 [id number] MD [facility] [address] [place] [address] 07/20/2023 14:20:57 07/21/2023 10:23:43 Dysfunction of bilateral eustachian tubes 2410246141 950215 H69.93 follow back if it isn't improving Acute sinusitis 36657382 J01.90 start augmentin [id number] MD [facility] [address] [place] [address] 09/28/2023 11:12:03 09/30/2023 16:27:23 Essential hypertension 39943236 I10 - pt is on amlodipine Type 2 allegra betes mellitus 65850993 E11.21 -pt is on lantus 28 units hs with humolog tid with meal per endopt is off of metformine due to diarrheapt is on ozempic as well Hypothyroidism 99654699 E03.9 pt is on thyroid pill Hyperlipidemia 29149803 E78.5 with coronary calcificat ion -seen by cardio as well-pt is on statin Bipolar disorder 2594073 4 F31.9 meds per - pt is requesting depakote level Screening for malignant neoplasm of colon 372975872 Z12.11 [id number] MD Loki Pickett 14 IM 4 [facility] [address] [place] [address] 10/13/2023 16:49:54 10/18/2023 10:58:56 Urinary symptoms 253402680 R39.9 -UA positive for leukocytes despite prophylact ic therapy.-P ositive for CVA tenderness .-Patient presentati on concerning for possible antibiotic resistant UTI due to chronic antibiotic use and history of UTI treatment at the end of August.- Patient was escorted to the bathroom by 3 CT staff members. Patient was unable to stand on her own and relied heavily on her 3 helpers. Patient states she lives at home alone and has felt very weak. Patient states she does not have anyone to help her at home.-MACHINE FILLER discussed possibilit y of UTI with UA showing leukocytes , positive for CVA tenderness , and patient's increased weakness. MACHINE FILLER discussed safety of patient going home alone with the patient. Patient would like to seek care in the ED. 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 -Patient to follow up with PCP. Body mass index 40+ - severely obese 648735446 Z68.41 [id number] NONA JACKSON MD [facility] (CUTTER OPERATOR) [address] [place] [address] 11/18/2023 10:30:18 11/19/2023 12:24:03 Routine gynecologic examination done 0061252372 9101 Z01.419 - Reviewed risks for infection and cancer; ordered screening tests as appropriat e Recurrent urinary tract infection 781169610 N39.0 - Patient already using twice weekly [...] provider Screening for malignant neoplasm of breast 290477614 Z12.31 - Due for screening mammogram; ordered today Atrophic vaginitis 45044 000 N95.2 - Refilled home vaginal estrogen [id number] MD Yoselin SOUTHhalto (CUTTER OPERATOR) [address] [place] [address] 11/26/2023 11:45:14 12/04/2023 18:12:22 Acute vaginitis 58444708 N76.0 - Will check NuSwab to see patient has yeast infection that does not respond as well to azoles- Continue vaginal terconazol e for 7 nights as prescribed by urgent care Candidiasis of skin 4988 3006 B37.2 - Mild erythema of left inguinal crease concerning for yeast infection- Will treat with nystatin cream BID PRN [id number] MD [facility] [address] [place] [address] 02/01/2024 10:44:25 02/07/2024 12:07:15 Essential hypertension 52345683 I10 - pt is on amlodipine Hypothyroidism 34565097 E03.9 pt is on thyroid pill Hyperlipidemia 02451348 E78.5 with coronary calcificat ion -seen by cardio as well-pt is on statin Type 2 allegra betes mellitus 66629850 E11.21 -pt is on lantus 28 units hs with humolog tid with meal per endopt is off of metformine due to diarrheapt is on ozempic as well Bipolar disorder 2068895 4 F31.9 meds per - pt is requesting depakote level Recurrent urinary tract infection 846322236 N39.0 - pt sees urologist and was rxed with several rounds of antibiotic Obesity 550974351 E66.8 [id number] MD Yoselin SOUTHhalto (CUTTER OPERATOR) [address] [place] [address] 02/11/2024 11:24:37 02/17/2024 16:21:44 Pruritus of vagina 56371263 L29.3 - Patient has persistent ly been [...] and vulvar manifestat ions of systemic disease [id number] MD [facility] [address] [place] [address] 05/05/2024 12:00:02 05/10/2024 12:14:14 Administration of influenza vaccine 97360746 Z23 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 - pt is seeing hematologi and has lab to do in 2 month per pt Chronic tremor 187855179 R25.1 which interferes with daily activities -holding things and writing [id number] MD [facility] [address] [place] [address] 07/24/2024 14:54:59 07/28/2024 11:02:42 Community acquired pneumonia 272717627 J18.9 -pt is on augmantin now-improv ing-will repeat cxr in few wks Recurrent urinary tract infection 928092550 N39.0 - pt sees urologist and was rxed with several rounds of antibiotic Hydrocephalus 342349205 G91.9 s/p shunt -sees neurologis t [id number] Sathish Benedict MD [facility] [address] [place] [address] 09/22/2024 11:16:14 10/16/2024 08:50:07 Screening for malignant neoplasm of colon 457757501 Z12.11 Hemorrhoids 68897607 K64 .9 -patient reports hemorrhoid flare at this time. Patient declined exam-patie nt agreeable to treatment with hydrocorti sone cream b.i.d. p.r.n. for 1-2 weeks. MACHINE FILLER discussed risks of steroid cream use including thinning of skin.-ER precaution s advised-keena martinsnt to follow up in clinic if symptoms worsen or do not improve HIV screen ing declined 1770167891 11905 Z53.20 Type 2 allegra betes mellitus without complication 427292489 E11.9 -uncontrol led-manage ment per endocrinol ogy-Last A1c 8.3% (09/11/24)-G oal A1c < 7.0%-Home blood glucose readings: n/a-DM Maintenanc eEye exam: 2024-reque st recordsFoo t exam: 03/2024 by endocrinol ogyMicroal : order at follow up-Denies hypo/hyper glycemia episodes.- Recheck A1c at follow-up- patient failed glipizide therapy, metformin therapy, Ozempic therapy-Co ntinue current therapy: Humalog sliding scale, Lantus 10 units HS-Recomme nded diabetic diet-Educa liliam to check feet daily. Essential hypertension 69884215 I10 -Controlle d-BP today in clinic: 118/69mmHg (Goal <130/80)-C ontinue current therapy: Amlodipine 5 mg daily, furosemide 40 mg b.i.d.-Agapito nd renal function-R ecommended DASH diet-Discu ssed importance of regular exercise and/or physical activity inthe control of blood pressure.- Discussed low sodium diet w/ <2 g daily, avoidance of caffeine, appropriat e sleep hygiene and quality with >6 hours of uninterrup liliam sleep.-Pat ient to call the clinic with BP <110/70mmH g or >140/90mmH g Seasonal a llergic rhinitis 199535831 J30.2 -patient reports symptoms are controlled on current therapy-de creasing dose to age-approp riate dose of loratadine 5 mg daily p.r.n. Administra tion of pneumococcal vaccine 34335141 Z23 -Patient agreeable to pneumonia vaccine.-N P discussed potential side effects and benefits of vaccine. Chronic ki dney disease 398009615 N18.9 -managemen t per nephrology -Last GFR and Creatinine : 19/2.57 (05/22/24) -Continue to trend BMP-Advise d patient to stay hydrated and avoid nephrotoxi c medication s such as NSAIDs. [id number] MD Farhat SOUTH (CUTTER OPERATOR) [address] [place] [address] 11/24/2024 11:01:00 11/24/2024 13:30:50 Routine gynecologic examination done 4075199427 9101 Z01.419 - Reviewed risks for infection and cancer; ordered screening tests as appropriat e Screening for malignant neoplasm of breast 507815813 Z12.31 - Due for screening mammogram; ordered today Atrophic vaginitis 27428 000 N95.2 - Home vaginal estrogen now prescribed by urology Candidiasis of vagina 72 837016 B37.31 - Recent Abx use in patient with uncontroll ed DM2; will treat empiricall y for yeast infection Health Concerns Section Related Observation LastModified by Organization Detai ls LastModified Time None Recorded Concern Status LastModified by Organization Details LastModified Time None Recorded Advance Directives Directive None Recorded Payers Encounter Date Sequence Insurance Name Policy Number Policy Morales Covered Member ID Morales Member ID Guarantor Name 02/11/2024 1 [facility] (MEDICARE REPLACEMENT/A DVANTAGE - PPO) [id number] Khadra Wolfe Allsman [id number] Khadra Wolfe Allsman 05/05/2024 1 [facility] (MEDICARE REPLACEMENT/A DVANTAGE - PPO) [id number] Khadra Wolfe Allsman [id number] Khadra Wolfe Allsman 07/24/2024 1 [place] Khadra Wolfe Allsmann [id number] Khadra S Allsman 09/22/2024 1 [facility] (MEDICARE REPLACEMENT/A DVANTAGE - PPO) [id number] Khadra S Allsmann [id number] Khadra Wolfe Allsman 11/24/2024 1 [facility] (MEDICARE REPLACEMENT/A DVANTAGE - PPO) [id number] Khadra Wolfe Allsmann [id number] Khadra Wolfe Allsman Notes Date Note Type Note Provider Name and Address Organization Details Recorded Time 02/11/2024 text/html Yeast infection concerns- Would like [...] was vaginal discharge NONA JACKSON MD Attn: Accounting,[address] [facility], [place], [address], [facility] 02/11/2024 13:58:40 05/05/2024 text/html pt with multiple medical problems is here for tremorspt is complaining of tremors which interferes with writing /holding thingsPt has endo for DM , also seeing specilaist for hydrocephalus/ pt sees psychiatrist for bipolar , taking meds as prescribed per pt . pt sees urologist for urinary incontinence Sharon Moya MD Attn: Accounting, [address] [facility], [place], [address], [facility] 05/05/2024 15:11:55 07/24/2024 text/html pt with multiple [...] pt sees urologist for urinary incontinence Sharon Moya MD Attn: Accounting,[address] [facility], [place], [address], [facility] - [facility] 07/25/2024 13:51:16 09/22/2024 text/html Patient presents to the clinic to establish care. Patient was previously established with Dr. Campuzano for primary care.Other providers:Dr. Malone-psychiatryDr. Alberto-pulmonologyDr Brayden Wang-nephrologistDr Brayden Garcia-endocrinologistDr Brayden Chavez-UrologistDrBrayden Kinney-neurologistDr. Gil-Rheumatology -Medical Hx/Surgical Hx: bipolar disorder, COPD, CKD, hypertension, hyperlipidemia, hypothyroidism, osteoporosis, DMII, urinary incontinence, seizures, total hysterectomy, cholecystectomy, shunt in brain to stomach, appendectomy, anxiety, asthma -Family hx:Mother: -CHFFather: -DMII -Tobacco/Drug/Alcohol Use:Patient reports history of tobacco use 40 years ago.Patient reports history of marijuana use years ago.Patient reports history of alcohol use years ago. Chicken pox: Reports history of chicken pox Marital status: / Sexually active: no Occupation: disabledHighest level of education: GED Allergies: corticosteroids, demerol, tegretol STEFANI FELDMAN- Attn: Accounting[address] [place], [address], [facility] 10/15/2024 15:39:15 11/24/2024 text/html Annual [facility]- PCP: STEFANI Dawson Concerns today- None. Has new vaginal cream from urology, which has been working better.- Recently needed Abx and requesting yeast infection medication. Prefers vaginal cream. Infection risk- Prior testing for HIV? Reports never tested- Prior testing for HepC? Neg in 2021- History of STIs? In 70s- Currently having unprotected sex? Not sexually active- Vaccines due? RSV, Shingrix #2 Plans for - S/p hysterectomy in 1991 for endometriosis and fibroids Cancer screenings- Breast cancer: 09/2022, 11/2023 - neg mammo- Cervical cancer: Denies abnormal Pap smears. S/p hysterectomy as above.- Colon cancer: 09/2023 - neg Colofit. Colofit ordered by PCP on 09/2024.- Lung cancer: Former smoker Bone health- DEXA 10/2023 - low bone mass; on alendronate NONA JACKSON MD Attn: Accounting,[address] [place], [address], [place] [facility] 11/24/2024 13:11:25 OBGyn Episode No OBEpisode recorded.
--- OUTSIDE RECORDS SUMMARY | 2024-12-07 18:00 | XMS_ITS | Continuity of Care Document ---
Author Organization [facility] Address [address] [place] [address] Insurance Providers Payer Plan Claims Address Claims Phone Policy Number Group Number Relation Employer Guarantor Name Guarantor Guarantor Address Guarantor Phone MEDIC [employer] [address] [address], [place] [address] [phone] Self Khadra Cmrichard [address] [place] [address] [address], [place] [address] MEDIC AID - OUT OF STATE [address] [address], [place] [address] [id number] Self Khadra Cmrichard [address] [place] [address] [address], [place] [address] MEDIC ARE [address], [place] [address] tel:[phone] Self Khadra Cmrichard [address] [place] [address] [id number], [place] [address] Problems Unknown Problems Results No [...]
--- OUTSIDE RECORDS SUMMARY | 2024-12-07 18:00 | XMS_ITS | Encounter Summary ---
Author Organization [facility] Address [address] [facility] [place] [address] Phone Care Team Providers Care Bulk Sausage Casing Tier Off Name Role Phone Sharon Moya MD Primary Care Provider [phone] Chapito Garcia MD Unavailable Radha Mac DPM Unavailable Reason for Visit * Reason Comments Medication Refill Encounter Details Date Type Department Care Team (Late st Contact Info) Description 09/16/2023 Refill [facility] - Endocrinology [facility] [address] [place] [address] Chapito Garcia MD [address] [phone] Medication Refill Social History Tobacco Use Types Packs/Day Years Used Date Smoking Tobacco: Former Cigarettes 1 12 Smokeless Tobacco: Never Alcohol Use Standard Drinks/Week Comments No 0 (1 standard drink = 0.6 oz pur e alcohol) PHQ-2 Answer Date Recorded Total Score - Questions 1-9 0 03/2022 Sexually Active Control Partners Comments Not Currently Comments No Sex and Gender Information Value Date Recorded Sex Assigned at Female 02/22/2023 8:54 AM CDT Legal Sex Female 7:09 PM CDT Gender Identity Female 02/22/2023 8:54 AM CDT Sexual Orientation Not on file documented as of this encounter Miscellaneous Notes * Telephone Encounter - Margo Abreu, RN - 09/16/2023 8:12 AM SHIPYARD PAINTER Requested Prescriptions Pending Prescriptions Disp Refills OneTouch Verio Strip [Pharmacy Med Name: ONE TOUCH VERIO TEST STRIP] 400 Strip 3 Si TIMES A DAY Next appt: 12/17/2023 YARD PAINTER documented in this encounter Plan of Treatment Upcoming Encounters Date Type Department Care Team (Late st Contact Info) Description 12/21/2024 9:45 AM CDT Office Visit [facility] - Endocrinology - [place] [address] [place] [phone] Chapito Garcia MD [address] [phone] documented as of this encounter Visit Diagnoses Diagnosis Type 2 diabetes mellitus with diabetic polyneuropathy, with long-term current use of insulin (HCC) documented in this encounter Additional Health Concerns Infection Onset Date Last Indicated Resolved Time COVID - 19 04/12/2024 04/12/2024 04/12/2024 4:20 PM CDT COVID - 19 05/22/2024 05/22/2024 05/22/2024 1:03 PM SHIPYARD PAINTER documented as of this encounter Care Teams Bulk Sausage Casing Tier Off Relationship Specialty Start Date End Date Sharon Moya MD [address] [place], [place] [id number] PCP - General Internal Medicine 09/16/21 Chapito Garcia MD [address] [phone] Consulting Physician Endocrinology 12/25/21 Radha Mac DPM [address] [phone] Consulting Physician Podiatry 05/26/22 documented as of this encounter
--- OUTSIDE RECORDS SUMMARY | 2024-12-07 18:00 | XMS_ITS | Clinical Summary ---
Author Organization [facility] Address [address] [place] [address] Care Team Providers Care Equipment Oiler Name Role Phone Sharon Moya MD Primary Care Provider [phone] Source Comments [facility],non-owned Affiliates and Associated Physician Practices is amultiple site organization consisting of ambulatory clinics and hospital sitesin [place], [place], [place] and [place]. This disclosure is being madepursuant to the Care Everywhere program and may not contain all information available regarding this patient. Last updated 18.[facility] Allergies Active Allergy Reactions Criticality Noted Date Comments Meperidine Vomiting Low 08/05/2017 Metformin Diarrhea Low 03/02/2019 Carbamazepine Rash Medium 08/05/2017 Medications * Be aware that medications may not be up to date on this document. Alwaysverify current medications with the patient. zinc sulfate (Zincate) 220 (50 Zn) MG capsule Take 1 (one) capsule by mouth once daily Active trimethoprim (Trimpex) 100 MG tablet 12/31/19 24 Active terconazole (Terazol 7) 0.4 % vaginal cream 01/03/20 24 Active tamsulosin (Flomax) 0.4 MG capsule 1 (one) capsule 2 times daily Active Ozempic, 1 MG/DOSE, 4 MG/3ML pen Inject 1 (one) mg subcutaneously every 7 days 11/03/19 24 Active risperiDONE (RisperDAL) 0.5 MG tablet Take 1 (one) tablet by mouth at bedtime Active acetaminophen (Tylenol) 500 MG tablet Take 2 (two) tablets by mouth 3 times daily Active alendronate (Fosamax) 70 MG tablet Take 1 (one) tablet by mouth every 7 days Active amLODIPine (Norvasc) 5 MG tablet 12/31/19 24 Active Ascorbic Acid 500 MG Chew Active aspirin EC (Ecotrin) 81 MG tablet Take 1 (one) tablet by mouth once daily Active atorvastatin (Lipitor) 20 MG tablet Take 1 (one) tablet by mouth once daily Active biotin 300 MCG tablet Take 1 (one) tablet by mouth once daily Active busPIRone (Buspar) 15 MG tablet Take 1 (one) tablet by mouth 2 times daily Active Cholecalciferol (Vitamin D3) 25 MCG (1000 UT) Take 2 (two) capsules by mouth Active divalproex DR (Depakote) 500 MG tablet Take 2 (two) tablets by mouth 2 times daily Active estrogens, conjugated, (Premarin) 0.625 MG/GM vaginal cream 01/12/20 23 Active famotidine (Pepcid) 40 MG tablet 12/31/19 24 Active fluticasone propionate (Flonase) 50 MCG/ACT nasal spray [place] 2 (two) sprays into each nostril once daily 08/15/19 24 Active Trelegy Ellipta 100-62.5-25 MCG/ACT Inhale 1 (one) puff by mouth once daily 09/07/19 24 Active OneTouch Verio test strip 4 TIMES A DAY Activ e hydrOXYzine HCl (Atarax) 25 MG tablet 1 tablet as needed Orally at night for 30 days Active BD Pen Needle Akanksha 2nd Gen 32G X 4 MM [facility] USE 1 PEN NEEDLE TO INJECT INSULIN DIRECTED 4 TIMES DAILY. 12/04/19 24 Active levothyroxine (Synthroid) 150 MCG tablet Take 1 (one) tablet by mouth once daily Active albuterol HFA (Proventil; Ventolin; Proair) 108 (90 Base) MCG/ACT inhaler Inhale 2 (two) puffs by mouth every 4 hours as needed for Shortness of Breath or Wheezing 05/25/20 24 Active insulin aspart (NovoLOG) pen Inject 0 (zero) Units to 6 (six) Units subcutaneously 4 times daily - before meals & nightly 05/25/20 24 Active insulin aspart (NovoLOG) pen Inject 8 (eight) Units subcutaneously 3 times daily with meals 05/26/20 24 Active insulin glargine (Lantus/Semglee ) 100 units/mL pen Inject 15 (fifteen) Units subcutaneously at bedtime 05/25/20 Active lidocaine (Lidoderm) 5 % patch Apply 1 (one) patch to skin every 24 hours Apply patch to most painful area and remove after 12 hours. May reapply a new patch 12 hours later. 05/26/20 Active bisacodyl (Dulcolax) 10 MG suppository Insert 1 (one) suppository into the rectum once daily as needed for Constipation 05/25/20 Active polyethylene glycol 3350 (Miralax) 17 g packet Take 17 (seventeen) g by mouth once daily 05/26/20 Active senna-docusate (Senokot-S) 8.6-50 MG tablet Take 1 (one) tablet by mouth once daily 05/26/20 Active piperacillin - tazobactam 4.5 g in 0.9% NaCl IV 0.9 % 100 mL 4.5 (four and one-half) g by Intravenous route every 8 hours 05/26/20 Active sulfaSALAzine (Azulfidine) 500 MG tablet Take 1 (one) tablet by mouth 2 times daily 180 tablet 1 10/31/19 25 Active Active Problems Problem Noted Date Diagnosed Date Weakness generalized 05/23/2024 Hyperglycemia 05/23/2024 Elevated troponin 05/23/2024 Fever, unspecified fever cause 05/23/2024 LUZMARIA (acute kidney injury) 05/23/2024 Urinary tract infection without hematuria, site unspecified 05/23/2024 Acute on chronic intracranial subdural hematoma 05/23/2024 CKD (chronic kidney disease), stage II Type 2 diabetes mellitus wit h hyperglycemia, with long-term current use of insulin 05/23/2024 Hypothyroidism 05/23/2024 Normal pressure hydrocephalus 05/23/2024 Hydrocephalus managed with BLUNGER MACHINE OPERATOR shunt 05/23/2024 Overview (05/23/2024): Inserted 2014 Essential hypertension 05/23/2024 Bipolar 1 disorder 05/23/2024 Seizures 05/23/2024 Insomnia 05/23/2024 Chronic obstructive pulmonar y disease with acute lower respiratory infection 05/23/2024 Asthma 05/23/2024 Anxiety 05/23/2024 Sleep apnea 05/23/2024 BMI 30.0-30.9,adult 05/23/2024 Osteoporosis 05/23/2024 Vitamin D deficiency 05/23/2024 Leukocytosis 05/23/2024 Encounters Date Type Department Care Team Description 10/30/2024 Telephone [facility] - Family Medicine [address] [place] [id number] Sharon Moya MD Med Question; Medication Issue from Last 3 Months Social History Tobacco Use Types Packs/Day Years Used Date Smoking Tobacco: Never Alcohol Use Standard Drinks/Week Comments Not Currently 0 (1 standard drink = 0.6 oz pur e alcohol) AUDIT-C Answer Date Recorded Q1: How often do you have a drink containing alcohol? Never 05/23/2024 Q2: How many drinks containi ng alcohol do you have on a typical day when you are drinking? Patient does not drink Q3: How often do you have si x or more drinks on one occasion? Never 05/23/2024 Comments No Sex and Gender Information Value Date Recorded Sex Assigned at Not on file Legal Sex Female 9:33 AM AND DRYING SUPERVISOR COOKING CASING Gender Identity Not on file Sexual Orientation Not on file Last Filed Vital Signs Vital Sign Reading Time Taken Comments Blood Pressure 132/61 05/25/2024 9:05 PM AND DRYING SUPERVISOR COOKING CASING Pulse 78 05/25/2024 9:05 PM AND DRYING SUPERVISOR COOKING CASING Temperature 36.6 C (97.9 F) 05/25/2024 7:47 AM AND DRYING SUPERVISOR COOKING CASING Respiratory Rate 16 05/25/2024 9:05 PM AND DRYING SUPERVISOR COOKING CASING Oxygen Saturation 96% 05/25/2024 9:05 PM AND DRYING SUPERVISOR COOKING CASING Inhaled Oxygen Concentration - - Weight 93.4 kg (206 lb) 05/22/2024 9:15 PM AND DRYING SUPERVISOR COOKING CASING Height 175.3 cm (5' 9) 05/22/2024 9:15 PM AND DRYING SUPERVISOR COOKING CASING Body Mass Index 30.42 05/22/2024 9:15 PM AND DRYING SUPERVISOR COOKING CASING Plan of Treatment Upcoming Encounters Date Type Department Care Team (Late st Contact Info) Description 01/23/2025 2:20 PM CDT Office Visit [facility] - Rheumatology [address] [place] [id number] Aracely Gil MD [address] [place] [phone] Health Maintenance Due Date Last Done Comments COLOGUARD (AGES 45-75) - COLON CA SCREENING 1959 COLON MONITORING 1959 COLONOSCOPY - COLON CA SCREENING 1959 CT COLONOGRAPHY - COLON CA SCREENING 1959 Colorectal Cancer Screening 1959 FIT - COLON CA SCREENING 1959 FLEX SIG - COLON CA SCREENING 1959 PAP SMEAR 1959 HIV SCREENING 1974 DTAP/TDAP/TD VACCINES (1 - Tdap) 1978 PNEUMOCOCCAL VACCINE 50+ (1 of 2 - PCV) 1978 ZOSTER VACCINE (1 of 2) 2009 Respiratory Syncytial Virus (RSV) Vaccine Pt: or over 60 yrs (1 - Risk 60-74 years 1-dose series) 2019 COVID-19 VACCINE ( season) 2024 10/25/2023, 10/30/2022, 09/09/2022, Additional history exists DIABETES-FOOT EXAM WITH MONOFILAMENT 05/23/2024 DIABETES - URINE PROTEIN SCREENING 07/12/2024 MEDICARE AWV CALENDAR YEAR 2024 DIABETES-HGB A1C 03/14/2025 09/11/2024, 06/2024, 03/24/2024, Additional history exists DIABETES-SERUM CREATININE 05/25/20252023, 05/24/2024, 05/23/2024, Additional history exists MAMMOGRAM 12/09/2025 12/10/2023, 11/11, 09/28/2022, Additional history exists DIABETES RETINOPATHY SCREENING 08/14/2026 08/14/2024 HEPATITIS C SCREENING Completed 07/23/2023, 024 BONE DENSITY TESTING Completed 11/03/2023 INFLUENZA VACCINE Completed 05/05/2024, , 03/06/2022, Additional history exists HEPATITIS B VACCINE Aged Out No longe r eligible based on patient's age to complete this topic HIB VACCINE Aged Out No longer eligi ble based on patient's age to complete this topic HPV VACCINE Aged Out No longer eligi ble based on patient's age to complete this topic MENINGOCOCCAL (Group B) VACCINE SHARED DECISION-MAKING Aged Out No longer eligible based on patient's age to complete this topic MENINGOCOCCAL GROUPS A/C/Y/W VACCINE Aged Out No longer eligible based on patient's age to complete this topic Procedures Procedure Name Priority Date/Time Associated Diagnosis Comments EYE EXAM 08/14/2024 RENAL FUNCTION PANEL AM Draw 05/25/2024 5:50 AM AND DRYING SUPERVISOR COOKING CASING Weakness generalized Fever, unspecified fever cause Urinary tract infection without hematuria, site unspecified HEMOGLOBIN A1C DESMOND 05/23/2024 7:12 AM AND DRYING SUPERVISOR COOKING CASING from Last 3 Months or Most Recently Relevant to Health Maintenance Results * EYE EXAM (08/14/2024) Anatomical Region Laterality Modality Other 08/14/2024 Narrative 08/14/2024 Ordered by an unspecified provider. us Scanned Document SCANNING ONLY Final Result * (ABNORMAL) RENAL FUNCTION PANEL (05/25/2024 5:50 AM AND DRYING SUPERVISOR COOKING CASING) BUN 37(H) 7 - 26 mg/dL 05/25/2024 7:00 AM [facility] Creatinine 1.58(H) 0.56 - 0.96 mg/dL 05/25/2024 7:00 AM [facility] Sodium 139 136 - 145 mmol/L 05/25/2024 7:00 AM [facility] Potassium 4.3 3.5 - 4.5 mmol/L 05/25/2024 7:00 AM [facility] Chloride 104 98 - 107 mmol/L 05/25/2024 7:00 AM [facility] CO2 25 22 - 29 mmol/L 05/25/2024 7:00 AM [facility] Glucose 292(H) 70 - 99 mg/dL 05/25/2024 7:00 AM [facility] Albumin 2.3(L) 3.4 - 5.0 g/dL 05/25/2024 7:00 AM [facility] Calcium 8.9 8.4 - 10.2 mg/dL 05/25/2024 7:00 AM [facility] Phosphorus 4.2 2.9 - 5.1 mg/dL 05/25/2024 7:00 AM [facility] Anion Gap 10 6 - 16 05/25/2024 7:00 AM [facility] BUN/Creatinine Ratio 23 7 - 23 05/25/2024 7:00 AM [facility] Osmolality Calculated 307(H) 275 - 295 mOsm/kg 05/25/2024 7:00 AM [facility] eGFR by CKD-EPI 36(L) >=90 mL/min/1.7 3 m2 05/25/2024 7:00 AM [facility] Blood BLOOD SPECIMEN / Unknown Lab Venipuncture / Unknown 05/25/2024 5:50 AM AND DRYING SUPERVISOR COOKING CASING 05/25/2024 6:32 AM [facility] Earnest Grubbs WORK MEASUREMENT ENGINEER-MANGLE CATCHER LAB - CHEMISTRY ORDERABL ES Final Result [address] [phone] [phone] * (ABNORMAL) HEMOGLOBIN A1C (05/23/2024 7:12 AM [facility]) Hemoglobin A1c 7.6(H) <=5.6 % 05/23/2024 12:38 PM [facility] Estimated Average Glucose 171 mg/dL 05/23/2024 12:38 PM [facility] Comment: HbA1c Interpretation: Normal : < 5.7% Pre-diabetes: 5.7-6.4% Diabetes: Equal to or greater than 6.5% Test results diagnostic of diabetes should be repeated for confirmation. Treatment target values recommended by ADA and other clinical organizations should be used to evaluate metabolic control in patients. Reference: [place] [employer], Standards of Care in Diabetes -2020 In patients 70 years and older consider HbA1c target range of 7.0-7.5% (Reference: Lawrence Gray et al. JAMDA. 2012) The [place]bia assay for the measurement of HbA1c is a National Glycohemoglobin Standardization Program (NGSP) certified method. Blood BLOOD SPECIMEN / Unknown Venipuncture / Unknown 05/23/2024 7:12 AM AND DRYING SUPERVISOR COOKING CASING 05/23/2024 8:05 AM AND DRYING SUPERVISOR COOKING CASING us Gabino Perez MD LAB - CHEMISTRY ORDERABLES Fin al Result Performing Organization Address City/State/[facility] Co de Phone Number [facility] [address] [place] [address], [place] [phone] from Last 3 Months or Most Recently Relevant to Health Maintenance Insurance MEDICARE MEDICAID - OUT OF STATE MEDICARE UHC MANAGED MEDICARE ADV Advance Directives * Full Code (Latest Code Status on File) Date Activated Date Inactivated Comments 05/23/2024 10:57 AM 05/25/2024 10:23 PM Care Teams Equipment Oiler Relationship Specialty Start Date End Date Sharon Moya MD [address] [place] [address] PCP - General Internal Medicine 08/05/23
--- OUTSIDE RECORDS SUMMARY | 2024-12-07 18:00 | XMS_ITS | Clinical Summary ---
Author Organization [facility] Address [address] [place] [address] Phone Care Team Providers Care Textile Conversion Manager Name Role Phone Sharon Moya MD Primary Care Provider [phone] Chapito Garcia MD Unavailable Radha Mac DPM Unavailable [phone] Allergies Active Allergy Reactions Criticality Noted Date Comments Corticosteroids Other (see Comments) 11/19/2022 Meperidine Vomiting,Nausea 02/11/2011 Other reaction(s): Nausea, Vomiting, Diarrhea / Diarrheal disorder Metformin Diarrhea 03/02/2019 Carbamazepine Itching 01/09/2017 Medications divalproex (DEPAKOTE) 500 MG Tablet Delayed Response Take 1,000 mg by mouth 2 times daily. Active busPIRone (BUSPAR) 15 MG Tablet Take 15 mg by mouth 2 times daily. Active aspirin 81 MG Chewable Tablet aspirin 81 mg chewable tablet CHEW 1 TABLET(S) EVERY DAY BY ORAL ROUTE AFTER MEALS FOR 30 DAYS. Active tamsulosin (FLOMAX) 0.4 MG Capsule Take 0.4 mg by mouth 2 times daily. 04/05/20 15 Active atorvastatin (LIPITOR) 20 MG Tablet Take 20 mg by mouth daily. Active risperiDONE (RISPERDAL) 0.5 MG Tablet Take 0.5 mg by mouth daily. 04/05/20 15 Active amLODIPine (NORVASC) 5 MG Tablet Take 5 mg by mouth daily. 07/23/19 21 Active levothyroxine (SYNTHROID) 150 MCG Tablet Take 150 mcg by mouth daily. Active Fluticasone-Ume clidin-Vilant (Trelegy Ellipta) 100-62.5-25 MCG/INH AEROSOL POWDER, BREATH ACTIVATED take 1 Puff by inhalation daily. 06/12/20 Active hydrOXYzine (ATARAX) 25 MG Tablet Take 25 mg by mouth every 8 hours as needed for Anxiety. 06/11/20 Active acetaminophen (TYLENOL) 500 MG Tablet Take 1,000 mg by mouth 3 times daily. 07/10/20 Active FAMOTIDINE PO Take 40 mg by mouth daily. 07/10/20 Active zinc sulfate (ZINCATE) 220 (50 Zn) MG Capsule Take 220 mg by mouth daily. Active Probiotic Product (PROBIOTIC-10 PO) Take by mouth. Activ e Blood Glucose Monitoring Suppl (XODIS) w/Device KitIndications: Type 2 diabetes mellitus with diabetic polyneuropathy, with long-term current use of insulin ([facility]) 1 Kit by Does not apply route daily. Test blood glucose 3x daily. E11.9, insulin dependent 1 Kit 01/03/20 22 Active Misc. Devices MiscIndications :Type 2 diabetes mellitus with diabetic polyneuropathy, with long-term current use of insulin ([facility]) Diabetic shoes 1 Each 02/06/20 22 Active fluticasone (FLONASE) 50 MCG/ACT Suspension 1-2 Sprays by Nasal route daily. Use in each nostril as directed. 9.9 mL 06/27/20 22 Active Additional Information Patient taking differently:1-2 [place] NasalDAILY PRN, Allergies, Rhinitis, Use in each nostril as directed., Reported on 09/11/2024 Premarin 0.625 MG/GM Cream 01/12/20 23 Active Continuous Blood Gluc Sensor (Dexcom G7 Sensor) MiscIndications :Type 2 diabetes mellitus with diabetic polyneuropathy, with long-term current use of insulin ([facility]) 1 Each by Does not apply route every 10 days. Change sensor every 10 days. 9 Each 1 03/17/20 23 Active semaglutide, 1 MG/DOSE, (Ozempic, 1 MG/DOSE,) 4 MG/3ML Solution Pen-injector 1 mg by Subcutaneous route once a week. 9 mL 1 11/03/19 24 Active linaCLOtide (LINZESS) 72 MCG Capsule Take 1 Capsule by mouth daily. 30 Capsule 12/12/19 24 Active alendronate (FOSAMAX) 70 MG Tablet Take 70 mg by mouth every 7 days. Active ascorbic acid 500 MG Tablet Take 500 mg by mouth daily. Active biotin 300 MCG Tablet Take 300 mcg by mouth daily. Active sulfaSALAzine (AZULFIDINE) 500 MG Tablet Take 500 mg by mouth 4 times daily. Active azithromycin (ZITHROMAX) 250 MG Tablet Take 250 mg by mouth daily. 2 tab(s) daily for 1 day, then 1 tab(s) daily for days 2-5. Active polyethylene glycol (GLYCOLAX, MIRALAX) 17 g Pack Take 17 g by mouth daily. Dissolve in 4-8 oz of liquid. Active sennosides (SENOKOT) 8.8 MG/5ML Syrup Take 5 mL by mouth daily. Active ondansetron (ZOFRAN-ODT) 4 MG TABLET DISPERSIBLE Take 1 Tablet by mouth every 6 hours as needed for Nausea - 1st line. 10 Tablet 05/27/20 24 Active Glucose Blood (OneTouch Verio) StripIndication s:Type 2 diabetes mellitus with diabetic polyneuropathy, with long-term current use of insulin ([facility]) 4 TIMES A DAY 400 Strip 3 09/12/19 25 Active OneTouch Delica Lancets 33G MiscIndications :Type 2 diabetes mellitus with diabetic polyneuropathy, with long-term current use of insulin ([facility]) 1 Lancet . by Does not apply route 4 times daily. Test blood glucose 3x daily. E11.42, insulin dependent 400 Lancet . 3 09/12/19 25 Active Insulin Pen Needle (Pen Tyler) 32G X 4 MM [facility] 1 Pen Needle by Does not apply route 4 times daily. Use to inject insulin 4x daily. 400 Each 3 09/12/19 25 Active Insulin Lispro, 1 Unit Dial, (HumaLOG KwikPen) 100 UNIT/ML Solution Pen-injector INJECT 12 UNITS UNDER THE SKIN BEFORE EACH MEAL + CORRECTIONAL FACTOR INSULIN (MAX 50 UNITS PER DAY) 45 mL 1 09/12/19 25 Active insulin glargine (Lantus SoloStar) 100 UNIT/ML Solution Pen-injector 15 Units by Subcutaneous route nightly. 15 mL 1 10/31/19 25 Active citalopram (CELEXA) 20 MG Tablet citalopram 20 mg tablet daily 06/21/20 21 Discontin ued(Error ) Active Problems Problem Noted Date Diagnosed Date Community acquired pneumonia 05/26/2024 Enterococcus UTI 05/26/2024 Sepsis, due to unspecified o rganism, unspecified whether acute organ dysfunction present 05/22/2024 Acute cystitis without hematuria 05/22/2024 Seizure disorder 06/16/2021 GERD (gastroesophageal reflux disease) 1 Bipolar I disorder 06/15/2021 Hypothyroidism 06/15/2021 CKD (chronic kidney disease) stage 4, GFR 15-29 ml/min 06/15/2021 COPD with acute exacerbation 06/15/2021 Elevated d-dimer 06/15/2021 Pneumonia due to COVID-19 virus 06/15/2021 Acute respiratory failure with hypoxia 1 Type 2 diabetes mellitus wit h diabetic polyneuropathy, with long-term current use of insulin 02/06/2019 Class 1 obesity due to exces s calories with serious comorbidity and body mass index (BMI) of 31.0 to 31.9 in adult 02/06/2019 High blood pressure 02/06/2019 Hyperlipidemia 02/06/2019 Thyroid disease Sleep apnea Overview (05/26/2024): NO Seizures Overview (05/26/2024): States has only had 1 seizure in the past. Diabetes mellitus COPD (chronic obstructive pulmonary disease) Bipolar 1 disorder (Idiopathic) normal pressure hydrocephalus CHF (congestive heart failure) Overview (05/26/2024): diastolic CKD (chronic kidney disease) stage 4, GFR 15-29 ml/min CAD (coronary artery disease) Encounters Date Type Department Care Team Description 10/30/2024 [facility] [place] [address] [place] [address] Chapito Garcia MD Medication Refill 09/11/2024 10:30 AM SALES BRANCH MANAGER Office Visit [facility] End[facility] [address] [place] [address] Chapito Garcia MD Type 2 diabetes mellitus with diabetic polyneuropathy, with long-term current use of insulin (HCC) (Primary Dx); Class 1 obesity due to excess calories with serious comorbidity and body mass index (BMI) of 32.0 to 32.9 in adult; Insulin dose changed (HCC) Discharge Disposition: Discharged to home or Selfcare 09/11/2024 Travel 09/08/2024 Telephone [facility] [address] [place] [phone] Chapito Garcia MD missed call from Last 3 Months Immunizations Immunization Administration Dates Next Due Covid-19, Mrna, Lnp-s, PF, 1 00 mcg/0.5 mL Dose (Moderna) 11/14/2020,10/17/2020 Hepatitis B-CpG 04/23/2020 Influenza Vaccine 05/03/2017,04/11/2016,04/11/20 15 Influenza Vaccine greater than 3 yrs 03/06/2022 Influenza Vaccine, MDCK,quad rivalent, pres free 03/05/2022,04/23/2020 Influenza Vaccine, Quadrivalent, PF 04/18/2018 Influenza Vaccine,unspecifie d Formulation 04/12/2019 Influenza, Injectable, Mdck, Preservative Free 03/05/2022,04/23/2020 Influenza, Injectable, Mdck,quadrivalent,with Preservative 07/02/2021 Influenza, Injectable, Quadrivalent 06/11,07/02/2021,04/11/2019,1999 Influenza, Seasonal, Injecta ble, Undefined 03/06/2022 Influenza, Trivalent, Adjuvanted, PF 08/07/2018 Influenza, high-dose, trivalent, PF 05/23/2014,1 07/23/2013 Pneumococcal Vaccine - 13 Valent 08/25/2016 Pneumococcal Vaccine Adult - 23 Valent 02/13/2021,07/12/1999 Pneumococcal Vaccine, Unspec ified Formulation 07/12/1999,07/12/1999 Sars-cov-2 (Covid-19) Vaccin e, Unspecified 11/05/2020 TDAP Vaccine 02/27/2017,02/27/2017 Tetanus Toxoid, Unspecified Formulation 07/12/1999 Tuberculin Skin Test; Purifi ed Protein Derivative Solutiol 07/12/1999 Family History Medical History Relation Name Comments Diabetes Father Heart Disease Mother Hypertension Mother Relation Name Status Comments Father Mother Social History Tobacco Use Types Packs/Day Years Used Date Smoking Tobacco: Former Cigarettes 1 12 Smokeless Tobacco: Never Tobacco Cessation:Counseling Given: Not Answered Alcohol Use Standard Drinks/Week Comments No 0 (1 standard drink = 0.6 oz pur e alcohol) [facility] Utilities Answer Date Recorded In the past 12 months has e electric, gas, oil, or water company threatened [...] declined 05/25/2024 How often do you attend nondenominational or hoahaoism serv ices? Patient declined 05/25/2024 Do you belong to any clubs o r organizations such as nondenominational groups, unions, fraternal or athletic groups, or [...] Recorded Total Score - Questions 1-9 0 0 03/2022 [facility] [place] [facility] ional [facility] - Occupational Stress Questionnaire Answer Date Recorded [...] any time in the past [address] [facility], were you homeless or living in a fci (including now)? Patient declined 05/25/2024 Sexually Active Control Partners Comments Not Currently Comments No Sex and Gender Information Value Date Recorded Sex Assigned at Female 02/22/2023 8:54 AM CDT Legal Sex Female 7:09 PM CDT Gender Identity Female 02/22/2023 8:54 AM CDT Sexual Orientation Not on file Last Filed Vital Signs Vital Sign Reading Time Taken Comments Blood Pressure 124/72 09/11/2024 10:45 AM SALES BRANCH MANAGER Pulse 103 09/11/2024 10:45 AM SALES BRANCH MANAGER Temperature 36.7 C (98.1 F) 09/11/2024 10:45 AM SALES BRANCH MANAGER Respiratory Rate 22 09/11/2024 10:45 AM SALES BRANCH MANAGER Oxygen Saturation 96% 09/11/2024 10:45 AM SALES BRANCH MANAGER Inhaled Oxygen Concentration - - Weight 99.4 kg (219 lb 3.2 oz) 09/11/2024 10:45 AM SALES BRANCH MANAGER Height 175.3 cm (5' 9) 05/25/2024 10:30 PM SALES BRANCH MANAGER Body Mass Index 32.37 05/25/2024 10:30 PM SALES BRANCH MANAGER Plan of Treatment Upcoming Encounters Date Type Department Care Team (Late st Contact Info) Description 12/21/2024 9:45 AM CDT Office Visit [facility] [place] [address] [place] [phone] Chapito Garcia MD [address] [address] Health Maintenance Due Date Last Done Comments Diabetes: Foot Exam 1959 Hepatitis C Virus (HCV) Screening 1959 Colonoscopy 2004 Colorectal Cancer Screening 2004 Cologuard 2009 Immunochemical Fecal Occult Blood 2009 Zoster Immunization (1 of 2) 2009 Respiratory Syncytial Virus (RSV) Immunization (Adult) (1 - Risk 60-74 years 1-dose series) 2019 Hepatitis B Immunization (2 of 2 - CpG 2-dose series) 05/21/2020 04/23/2020 SARS-COV-2 Immunization ( season) 2024 10/25/2023, 10/30/2022, 09/09/2022, Additional history exists Mammogram 12/09/2024 12/10/2023, 03, 04/22/2021 Diabetes: Hemoglobin A1c 03/14/2025 025, 05/23/2024, 03/24/2024, Additional history exists Diabetes: Nephropathy Screening 05/22/2025 05/22/2024, 02/28/2023, 06/19/2021, Additional history exists Diabetes: Eye Exam 08/14/2025 08/14/2024, 0 01/31/2024, 01/31/2024 DEXA Bone Density 11/02/2025 11/03/2023 Pneumococcal Immunization (50+ years) (4 of 4 - PCV20 or PCV21) 02/13/2026 02/13/2021, 08/25/2016, 07/12/1999, Additional history exists Td Immunization Every 10 Years (Adults With 1 Tdap) 02/27/2027 02/27/2017, 02/27/2017 DTaP/Tdap/Td Immunization Discontinued 02/27/2017, Cervical Cancer Screening (CCS) Discontinued Pap Smear Discontinued 03/25/2018 Pneumococcal Immunization Combined Discontinued 02/13/2021, 08/25/2016, 07/12/1999, Additional history exists Influenza Immunization Completed , 06/25/2023, 03/06/2022, Additional history exists HPV/Cotest Discontinued Human Papillomavirus (HPV) Immunization Aged Out No longer eligible based on patient's age to complete this topic Meningococcal Immunization (ACWY) Aged Out No longer eligible based on patient's age to complete this topic Rotavirus Immunization Aged Out No lo nger eligible based on patient's age to complete this topic Procedures Procedure Name Priority Date/Time Associated Diagnosis Comments POCT GLYCOSYLATED HEMOGLOBIN Routine 09/11/2024 10:57 AM SALES BRANCH MANAGER Type 2 diabetes mellitus with diabetic polyneuropathy, with long-term current use of insulin (HCC) CMP (COMPREHENSIVE METABOLIC PANEL) STAT 05/22/2024 9:59 AM SALES BRANCH MANAGER HM DILATED EYE EXAM 01/31/2024 1 2:00 AM CDT from Last 3 Months or Most Recently Relevant to Health Maintenance Results * (ABNORMAL) POCT GLYCOSYLATED HEMOGLOBIN (09/11/2024 10:57 AM SALES BRANCH MANAGER) HGB-A1C 8.3(A) 4 - 6 % Blood 09/11/2024 10:5 7 AM SALES BRANCH MANAGER us Chapito Garcia MD POINT OF CARE TESTING (MANUAL) F inal Result * (ABNORMAL) Comprehensive Metabolic Panel (Cmp) [id number] (05/22/2024 9:59 AM SALES BRANCH MANAGER) SODIUM 138 136 - 145 mmol/L 05/22/2024 11:21 AM SALES BRANCH MANAGER [facility] POTASSIUM 5.0 3.5 - 5.1 mmol/L 05/22/2024 11:21 AM [facility] CHLORIDE 105 98 - 107 mmol/L 05/22/2024 11:21 AM [facility] CO2, VENOUS 20(L) 22 - 30 mmol/L 05/22/2024 11:21 AM [facility] ANION GAP 18.0(H) <18.0 mmol/L 05/22/2024 11:21 AM [facility] GLUCOSE 281(H) 70 - 99 mg/dL 05/22/2024 11:21 AM [facility] BUN 34(H) 10 - 20 mg/dL 05/22/2024 11:21 AM [facility] CREATININE, BLOOD 2.57(H) 0.60 - 1.00 mg/dL 05/22/2024 11:21 AM [facility] BUN/CREATININE RATIO 13 12 - 20 ratio 05/22/2024 11:21 AM [facility] TOTAL PROTEIN 6.3 6.3 - 8.2 g/dL 05/22/2024 11:21 AM [facility] ALBUMIN 3.6 3.5 - 5.0 g/dL 05/22/2024 11:21 AM [facility] A/G RATIO 1.3 1.0 - 2.2 05/22/2024 11:21 AM [facility] CALCIUM 9.8 8.7 - 10.5 mg/dL 05/22/2024 11:21 AM [facility] T BILI 0.6 0.2 - 1.2 mg/dL 05/22/2024 11:21 AM [facility] SGOT (AST) 30 5 - 34 U/L 05/22/2024 11:21 AM [facility] SGPT (ALT) 11 0 - 55 U/L 05/22/2024 11:21 AM [facility] ALKALINE PHOSPHATASE 63 40 - 150 U/L 05/22/2024 11:21 AM [facility] GFR, ESTIMATED 20(L) >=60 05/22/2024 11:21 AM SALES BRANCH MANAGER [facility] Comment: Creatinine Clearance is the preferred criteria for selecting drug dose adjustments in renally impaired patients. The GFR is provided as additional pertinent clinical information. GFR is reported in mL/min/1.73 sq m. Calculation based on the Chronic Kidney Disease Epidemiology Collaboration (CKD- EPI) equation refit without adjustment for race. GFR, EST. 23(L) >=60 024 11:21 AM SALES BRANCH MANAGER [facility] GFR, EST. NONAFRICAN 19(L) >=60 05/22/2024 11:21 AM SALES BRANCH MANAGER [facility] Blood Venipuncture / Unknown 05/22/2024 9:59 AM SALES BRANCH MANAGER 05/22/2024 10:50 AM SALES BRANCH MANAGER us Clarita Riggs MD CHEMISTRY ORDERABLES Final Re sult Performing Organization Address City/[facility] Co de Phone Number [facility] [address] [place] [address] * HM DILATED EYE EXAM (01/31/2024 12:00 AM CDT) 01/31/2024 us Provider Scan PROCEDURE/MINOR SURGICAL ORDERAB LES Final Result Performing Organization Address City/[facility] Co de Phone Number SCAN from Last 3 Months or Most Recently Relevant to Health Maintenance Insurance [address], [place] [address] MEDICAID [place] MEDICARE C [facility] Advance Directives * Full Code (Latest Code Status on File) Date Activated Date Inactivated Comments 05/26/2024 10:52 AM CPR-Full [place] atment: FULL ARREST: Attempt Resuscitation/CPR wit intubation and mechanical ventilation. PRE-ARREST: Use entire range of life support measures to stabilize the patient. * Full Code Date Activated Date Inactivated Comments 05/22/2024 4:58 PM 05/26/2024 10:52 AM CPR-Full Treatment: FULL ARREST: Attempt Resuscitation/CPR wit intubation and mechanical ventilation. PRE-ARREST: Use entire range of life support measures to stabilize the patient. * Full Code Date Activated Date Inactivated Comments 01/14/2023 2:05 PM 01/20/2023 3:52 PM * Full Code Date Activated Date Inactivated Comments 07/25/2021 8:13 AM 07/31/2021 10:47 AM * Full Code Date Activated Date Inactivated Comments 06/30/2021 1:21 PM 07/02/2021 1:03 PM Care Teams Textile Conversion Manager Relationship Specialty Start Date End Date Sharon Moya MD [address] [place] [address] PCP - General Internal Medicine 09/16/21 Chapito Garcia MD [address] [phone] Consulting Physician Endocrinology 12/25/21 Radha Mac DPM [address] [phone] Consulting Physician Podiatry 05/26/22
--- OUTSIDE RECORDS SUMMARY | 2024-12-07 18:00 | XMS_ITS | Encounter Summary ---
Author Organization [facility] Address [address] [place] [address] Phone Care Team Providers Care Group Controller Name Role Phone Sharon Moya MD Primary Care Provider [phone] Chapito Garcia MD Unavailable Radha Mac DPM Unavailable [phone] Encounter Details Date Type Department Care Team (Late st Contact Info) Description 06/15/2024 Nursing Facility [facility] [address] [place] [place] [address] Fiorella Horn, INDUSTRIAL EQUIPMENT MECHANIC, GELATIN POWDER MIXER [address] [place] [address] Social History Tobacco Use Types Packs/Day Years Used Date Smoking Tobacco: Former Cigarettes 1 12 Smokeless Tobacco: Never Alcohol Use Standard Drinks/Week Comments No 0 (1 standard drink = 0.6 oz pur e alcohol) [facility] Utilities Answer Date Recorded In the past 12 months has th [employer] electric, gas, oil, or water company threatened [...] declined 05/25/2024 How often do you attend druze or religion serv ices? Patient declined 05/25/2024 Do you belong to any clubs o r organizations such as druze groups, unions, fraternal or athletic groups, or [...] Total Score - Questions 1-9 0 03/2022 [facility] - [facility]ational Stress Questionnaire Answer Date Recorded [...] any time in the past 12 m [facility], were you homeless or living in a halfway (including now)? Patient declined 05/25/2024 Sexually Active [...] Office Visit [facility] [address] [place] [address] Chapito Garcia MD [address] [phone] documented as of this encounter Visit Diagnoses Not on filedocumented in this encounter Care Teams Group Controller Relationship Specialty Start Date End Date Sharon Moya MD [address] [place] [address] PCP - General Internal Medicine 09/16/21 Chapito Garcia MD [address] [phone] Consulting Physician Endocrinology 12/25/21 Radha Mac DPM [address] [phone] Consulting Physician Podiatry 05/26/22 documented as of this encounter
--- OUTSIDE RECORDS SUMMARY | 2024-12-07 18:00 | XMS_ITS | Encounter Summary ---
Author Organization [facility] Address [address] [facility] [place] [address] Phone Care Team Providers Care Production Editor Name Role Phone Sharon Moya MD Primary Care Provider [phone] Chapito Garcia MD Unavailable Radha Mac DPM Unavailable [phone] Encounter Details Date Type Department Care Team (Late st Contact Info) Description 06/12/2024 Nursing Facility [facility] [address] [place] [address] Fiorella Horn, ORNAMENT MAKER HAND, GREEN CHAIN MARKER [address] [place] [address] Social History Tobacco Use Types Packs/Day Years Used Date Smoking Tobacco: Former Cigarettes 1 12 Smokeless Tobacco: Never Alcohol Use Standard Drinks/Week Comments No 0 (1 standard drink = 0.6 oz pur e alcohol) [facility] Utilities Answer Date Recorded In the past 12 months has th [email or web address] electric, gas, oil, or water company threatened [...] declined 05/25/2024 How often do you attend confucianist or episcopalian serv ices? Patient declined 05/25/2024 Do you belong to any clubs o r organizations such as confucianist groups, unions, fraternal or athletic groups, or [...] Questions 1-9 0 03/2022 [facility] - Occupational Stress Questionnaire Answer Date [...] any time in the past 12 m [facility], were you homeless or living in a fpc (including now)? Patient declined 05/25/2024 Sexually Active [...] Office Visit [facility] [address] [place] [address] Chapito Garcia MD [address] [phone] documented as of this encounter Visit Diagnoses Not on filedocumented in this encounter Care Teams Production Editor Relationship Specialty Start Date End Date Sharon Moya MD [address] [place] [address] PCP - General Internal Medicine 09/16/21 Chapito Garcia MD [address] [phone] Consulting Physician Endocrinology 12/25/21 Radha Mac DPM [address] [phone] Consulting Physician Podiatry 05/26/22 documented as of this encounter
--- OUTSIDE RECORDS SUMMARY | 2024-12-07 18:00 | XMS_ITS | Continuity of Care Document ---
Author Organization [facility] Address [address] [place] [address] [place] [address] Phone Care Team Providers Care Foreclosure Home Inspector Name Role Phone Thad Villatoro MD Unavailable Unavailable Allergies, Adverse Reactions, Alerts Substance Reaction Status Criticality carbamazepine Unknown Active No Information PRESERVATIVE FREE Unknown Active No Informa tion MEPERIDINE HCL Unknown Active No Informatio n Medications Medication Instructions Dosage Effective Dates (start - stop) Status Comments Lantus Solostar 100 unit/mL (3 mL) subcutaneous insulin pen inject by subcutaneous route as per insulin protocol 0.00 - Active inject 30 units SC in AM Humalog KwikPen 100 unit/mL subcutaneous inject by subcutaneous route per prescriber's instructions. Insulin dosing requires individualization. 0.00 - Active inject 10 uni ts SC TID before meals Pen Needle 31 gauge x 1/4 QID - Active e11.9 Zyrtec 10 mg tablet take 1 tablet by oral route every day 10 MG - Active Ultram 50 mg tablet take 1 tablet by oral route 3 times every day as needed 50 MG - Active avoid drivin g or operate machine Synthroid 125 mcg tablet take 1 tablet by oral route every day 125 MCG - Active pravastatin 20 mg tablet take 1 Tablet by oral route every day 20 MG - Active Contour Next Strips QID - Active e11.9 Vitamin D2 50,000 unit capsule take 1 capsule by oral route every week - Active Protonix 20 mg tablet,delayed release take 1 Tablet by oral route every day 20 MG - Active Fosamax 70 mg tablet take 1 tablet by oral route every week in the morning, at least 30 min before first food, beverage, or medication of day 70 MG - Active Procedures Procedure Date OFFICE/OUTPATIENT VISIT, EST OFFICE/OUTPATIENT VISIT, EST OFFICE/OUTPATIENT VISIT, EST OFFICE/OUTPATIENT VISIT, NEW Advance Directives Directive Yes / No Effective Date File Name No Information Encounters Encounter Description Practice Location Reason(s) For Visit Diagnoses Date Provider Providers Copied on Encounter [facility], [address], [place], [place], [id number], [place] tel:[phone] [facility] No Information Irving Oneil. [address], [place], [place], [address] , [place]. tel:[phone] [facility], [address], [place], [place], [address], [place] [phone] [facility] No Information Irving Oneil. [address], [place], [place], [address] , [place]. tel:[phone] OFFICE/OUTPA TIENT VISIT, [facility], [address], [place], [place], [address], [place] tel:[phone] [facility] osteoporosis1 (chief complaint)HLP (chief complaint)kne e pian1 (chief complaint)DM (chief complaint)all ergy1 (chief complaint) HyperlipidemiaOs teoporosisType 2 diabetes mellitus without complicationsChr onic pain syndrome Irving Oneil. [address], [place], [place], [address] , [place]. tel:[phone] Referring Provider: Giovani Manning [address], [place], [place], [id number]. tel:[phone] OFFICE/OUTPA TIENT VISIT, [facility], [address], [place], [place], [address], [place] tel:[phone] [facility] DM (chief complaint)HLP (chief complaint)ramon al funciton (chief complaint) HyperlipidemiaTy pe 2 diabetes mellitus without complicationsRen al disease Irving Duran [address], [place], [place], [address] , [place]. tel:[phone] Referring Provider: Giovani [address], [place], [place], [address]. tel:[phone] OFFICE/OUTPA TIENT VISIT, [facility], [address], [place], [place], [address], [place] tel:[phone] [facility] GERD1 (chief complaint)ost eoporosis1 (chief complaint)kne e pain1 (chief complaint)hyp othyroidism (chief complaint) HypothyroidismGE RD w/o esophagitisOsteo porosisChronic pain syndrome Irving Duran [address], [place], [place], [address] , [place]. tel:[phone] Referring Provider: [facility]atoro [address] [facility] [address] [place], [place], [address]. tel:[phone] [facility], [facility] [address], [address], tel:[phone] [facility] No Information Irving Duran [address], [place], [place], [address] , [place]. tel:[phone] OFFICE/OUTPA TIENT VISIT, [facility], [address], [place], [place], [address], [place] tel:[phone] [facility] hydrocephlus (chief complaint)DM1 (chief complaint)hyp othyroidism1 (chief complaint)ost eoporosis1 (chief complaint)chr onic pain1 (chief complaint) Type 2 diabetes mellitus without complicationsGER D w/o esophagitisHypot hyroidismOsteopo rosis Irving Duran [address], [place], [place], [address] , [place]. tel:[phone] Referring Provider: Giovani Manning [facility] [address], [place], [place], [address]. tel:[phone] Family History Family Member Type Diagnosis Age At Onset Brother Problem (finding) Diabetes mellitus type 2 Father Problem (finding) Unknown Mother Problem (finding) unknwon Payers Payer name Insurance type Covered green party ID Authoriza tion(s) No Information Social History Type Description Quantity Date Captured Comments Alcohol Use Details Unknown Caffeine Use Details Unknown Tobacco Use Status No Information Smoking Status No Information Sex Female Chief Complaint And Reason For Visit No Information Plan Of Treatment Date Type Action Status Referral Ordered: KNEE XRAY TWO-VIEW Bilateral ordered Referral Ordered: MAMMOGRAM, SCREENING ordered Referral Ordered: Gastroenterology (related to GERD w/o esophagitis) ordered Referral Ordered: Orthopedic Surgery (related to Chronic pain syndrome) ordered Referral Ordered: US THYROID ordered Referral Ordered: Referrals: Orthopedic Surgery. Evaluate and treat ordered Referral Ordered: Referrals: Gastroenterology. Evaluate and treat ordered Referral Ordered: DXA BONE DENSITY, AXIAL ordered History Of Present Illness Encounter Date Complaint History Of Prese nt Illness HLP Pt has HLP Pt ta kes pravastatin. Pt denies any myalgia. Pt is on low fat and low carb diet DM Pt takes lantus 30 units and also humalog. Pt states that her BGI around 110s now. Pt denies any hypoglycemia. osteoporosis1 Pt has ostoeporo sis. Pt takes calcium and D and fosamax. Pt has not done the bone density yet Pt denies any fracture. allergy1 Pt has seasonal allergy. Pt has sinus congestion and sneezing and itchg eyes. knee pian1 Pt has chronic b ilateral knee pain. pt has arthritis. Pt has appointment with ortho in two weeks. Pt denie any knee swelling. Pt also has low back pain. Pt denies any wrosening pain, any loss of bladder control. Pt has sciatica and bilateral leg weakness and numbness chronically. Pt wants to see back specialist DM Pt has DM. Pt ta kes lantus and humalog premeal daily. Pt states that her BG is around 250s. Her A1c is 7.6. Pt denies any polyuria, polydipisia. Pt takse 25 units lantus and also 5 units humalog premeal. Pt denies any hypoglycemia HLP Pt has HLP Pt us ed to take statin but not anymore. Pt is not very good with diet renal funciton Pt has mild low renal function Pt has good urine output GERD1 Pt has chronic G ERD Pt takes protonix and doing ok pt denies any abd pain or any GERD symptoms. osteoporosis1 Pt has osteoporo sis. Pt takes calcium and D and also fosamas. Pt denies any fracture Pt denies any jaw pain knee pain1 Pt has chronic b ilateral knee pain. Pt takes ultram for pain. Pt wants to see ortho. Pt denies any injury. Pt walks with walker hypothyroidism pt takes synthro id. Pt has not done lab yet to check level. Pt denies any headache or chest pain hydrocephlus Pt states that paris martinez was in the hospital and she had shunt placed in her brain due to fluid in her brain. Pt is very poor historian and she canot produce any other information. [facility] and [facility]. Pt [facility] in [facility] two years. DM1 Pt has DM. Pt ta kes lantus and also humalog. Pt states that her BG is around 150-170s. Pt denies any numbness hypothyroidism1 Pt has hypothyro idism. Pt takes synthroid 125 mcg daily. osteoporosis1 Pt has osteoporo sis. Pt takes fosamax and calcium and D. Pt denies any h/o fracture chronic pain1 Pt has chronic k nee and low back pain. Pt denies any loss of bladder control. Pt denies any worsening pain. Pt takes ultram for emmanuel PRN. Pt doing ok Pt denies any loss of bladdder control Instructions Date Instruction Additional Infor liz Prescribed Diet Educ ation/Lifestyle Education Regarding Diet Related to Dietary Surveillance and Counseling Prescribed Activity and Exercise Education Related to Dietary Surveillance and Counseling Prescribed Activity and Exercise Education Related to Dietary Surveillance and Counseling Prescribed Diet Educ ation/Lifestyle Education Regarding Diet Related to Dietary Surveillance and Counseling Prescribed Diet Educ ation/Lifestyle Education Regarding Diet Related to Dietary Surveillance and Counseling Prescribed Activity and Exercise Education Related to Dietary Surveillance and Counseling Prescribed Diet Educ ation/Lifestyle Education Regarding Diet Related to Dietary Surveillance and Counseling Prescribed Activity and Exercise Education Related to Dietary Surveillance and Counseling Assessments Type Assessment Date No Information
--- OUTSIDE RECORDS SUMMARY | 2024-12-07 18:00 | XMS_ITS | Encounter Summary ---
Author Organization [facility] Address [address] [facility] [place] [address] Phone Care Team Providers Care Charge Loader Name Role Phone Sharon Moya MD Primary Care Provider Chapito Garcia MD Unavailable Radha Mac DPM Unavailable Encounter Details Date Type Department Care Team (Late st Contact Info) Description 06/21/2024 Nursing Facility [facility] [address] [place] [address] Fiorella Horn, BELT SANDER, ANIMAL CONTROL OFFICER [address] [place] [address] Social History Tobacco Use Types Packs/Day Years Used Date Smoking Tobacco: Former Cigarettes 1 12 Smokeless Tobacco: Never Alcohol Use Standard Drinks/Week Comments No 0 (1 standard drink = 0.6 oz pur e alcohol) [facility] Utilities Answer Date Recorded In the past 12 months has th [employer] electric, gas, oil, or water company threatened [...] declined 05/25/2024 How often do you attend pentecostalism or faith serv ices? Patient declined 05/25/2024 Do you belong to any clubs o r organizations such as pentecostalism groups, unions, fraternal or athletic groups, or [...] Total Score - Questions 1-9 0 03/2022 [facility] - Occupational Stress Questionnaire Answer Date [...] any time in the past 12 m [facility], were you homeless or living in a snf (including now)? Patient declined 05/25/2024 Sexually Active [...] Office Visit [facility] - Endocrinology [facility] [address] [place] [address] Chapito Garcia MD [address] [phone] documented as of this encounter Visit Diagnoses Not on filedocumented in this encounter Care Teams Charge Loader Relationship Specialty Start Date End Date Sharon Moya MD [address] [place] [address] PCP - General Internal Medicine 09/16/21 Chapito Garcia MD [address] [address] Consulting Physician Endocrinology 12/25/21 Radha Mac DPM [address] [phone] Consulting Physician Podiatry 05/26/22 documented as of this encounter
--- OUTSIDE RECORDS SUMMARY | 2024-12-07 18:00 | XMS_ITS | Encounter Summary ---
Author Organization [facility] Address [address] [facility] [place] [address] Phone Care Team Providers Care Property Master Name Role Phone Sharon Moya MD Primary Care Provider [phone] Chapito Garcia MD Unavailable Radha Mac DPM Unavailable [phone] Encounter Details Date Type Department Care Team (Late st Contact Info) Description 05/30/[address] [facility] [address] [place] [address] Fiorella Horn, TRAVEL NURSE, FOREST TECHNOLOGY PROFESSOR [address] [place] [address] Social History Tobacco Use Types Packs/Day Years Used Date Smoking Tobacco: Former Cigarettes 1 12 Smokeless Tobacco: Never Alcohol Use Standard Drinks/Week Comments No 0 (1 standard drink = 0.6 oz pur e alcohol) [facility] Utilities Answer Date Recorded In the past 12 months has th [employer] electric, gas, oil, or water company threatened [...] declined 05/25/2024 How often do you attend zoroastrianism or anabaptism serv ices? Patient declined 05/25/2024 Do you belong to any clubs o r organizations such as zoroastrianism groups, unions, fraternal or athletic groups, or [...] 1-9 0 03/2022 [facility] - Occupational Stress Questionnaire Answer Date [...] time in the past 12 m [facility], were you homeless or living in [...] Office Visit [facility] - Endocrinology [facility] [address] [place] [address] Chapito Garcia MD [address] [phone] documented as of this encounter Visit Diagnoses Not on filedocumented in this encounter Care Teams Property Master Relationship Specialty Start Date End Date Sharon Moya MD [address] [place] [address] PCP - General Internal Medicine 09/16/21 Chapito Garcia MD [address] [address] Consulting Physician Endocrinology 12/25/21 Radha Mac DPM [address] [phone] Consulting Physician Podiatry 05/26/22 documented as of this encounter
--- OUTSIDE RECORDS SUMMARY | 2024-12-07 18:00 | XMS_ITS | Encounter Summary ---
Author Organization [facility] Address [address] [place] [address] Phone Care Team Providers Care Cargo Bracer Name Role Phone Anthony Burks MD Primary Care Provider [phone] Gayle Garcia RN Unavailable Unavailable Sharon Moya MD Primary Care Provider Chapito Garcia MD Unavailable Radha Mac DPM Unavailable [phone] Encounter Details Date Type Department Care Team (Late st Contact Info) Description 07/30/2021 Lab Requisition [facility] [address] [place] [phone] Anthony Burks MD [address] [place] [address] COVID-19 Social History Tobacco Use Types Packs/Day Years Used Date Smoking Tobacco: Former Cigarettes 1 12 Smokeless Tobacco: Never Alcohol Use Standard Drinks/Week Comments No 0 (1 standard drink = 0.6 oz pur e alcohol) Sexually Active Control Partners Comments Not Currently Comments No Sex and Gender Information Value Date Recorded Sex Assigned at Female 02/22/2023 8:54 AM CDT Legal Sex Female 7:09 PM CDT Gender Identity Female 02/22/2023 8:54 AM CDT Sexual Orientation Not on file COVID-19 Exposure Response Date Recorded In the last month, have you been in contact with someone who was confirmed or suspected to have Coronavirus / COVID-19? No / Unsure 07/31/2021 11:08 AM POLICE COMMANDING OFFICER documented as of this encounter Plan of Treatment Upcoming Encounters Date Type Department Care Team (Late st Contact Info) Description 12/21/2024 9:45 AM CDT Office Visit [facility] - [facility]ocr[facility]ology [facility] [address] [place] [phone] Chapito Garcia MD [address] [address] documented as of this encounter Procedures Procedure Name Priority Date/Time Associated Diagnosis Comments SARS-COV-2 BY MOLECULAR Routine 07/28/2021 4:00 PM POLICE COMMANDING OFFICER COVID-19 documented in this encounter Results * SARS-COV-2 BY MOLECULAR (07/28/2021 4:00 PM POLICE COMMANDING OFFICER) SARSCOV2 NOT DETECTED (Referen ce Range for this test is Not Detected ) [facility] FAST DX 07/31/2021 1:24 PM POLICE COMMANDING OFFICER [facility] Comment:This test was perfor med by a RT-PCR method. Other Non-Phlebotomy Collection / Unknown 07/28/2021 4:00 PM POLICE COMMANDING OFFICER 07/30/2021 8:28 AM POLICE COMMANDING OFFICER Narrative [facility] - 07/31/2021 1:24 PM POLICE COMMANDING OFFICER Authorized Fact Sheets about this test for providers and patients are available at: https://www.fda.gov/medical-devices/vsfyhvcjk-ulsxrfnijo-tafendi-devices/emergen cy-us e-authorizations us Anthony Burks MD MICROBIOLOGY - GENERAL ORDERAB LES Final Result [facility] [address] [place] [address], [place] documented in this encounter Visit Diagnoses Diagnosis COVID-19 documented in this encounter Additional Health Concerns Infection Onset Date Last Indicated Resolved Time COVID - 19 07/21/2021 07/28/2021 08/17/2021 12:1 6 AM POLICE COMMANDING OFFICER COVID - 19 10/06/2021 10/06/2021 10/26/2021 12:1 6 AM CDT COVID - 19 06/27/2022 06/27/2022 07/07/2022 12:1 6 AM POLICE COMMANDING OFFICER Respiratory Rule-Out 06/27/2022 06/27/2022 023 12:16 AM POLICE COMMANDING OFFICER COVID - 19 04/12/2024 04/12/2024 04/12/2024 4:20 PM CDT COVID - 19 05/22/2024 05/22/2024 05/22/2024 1:03 PM POLICE COMMANDING OFFICER documented as of this encounter Care Teams Cargo Bracer Relationship Specialty Start Date End Date Anthony Burks MD [address] [facility] [address] [place] [address] PCP - General Internal Medicine 12/19/19 09/15/21 Sharon Moya MD [address] [facility] [address] [place] [address] PCP - General Internal Medicine 09/16/21 Gayle Garcia, RN [place] Parts Administrator 08/21/21 02/11/22 Chapito Garcia MD [address] [phone] Consulting Physician Endocrinology 12/25/21 Radha Mac DPM [address] [phone] Consulting Physician Podiatry 05/26/22 documented as of this encounter
--- OUTSIDE RECORDS SUMMARY | 2024-12-07 18:00 | XMS_ITS | Encounter Summary ---
Author Organization [facility] Address [address] [place] [address] Phone Care Team Providers Care Chief Development Officer Name Role Phone Sharon Moya MD Primary Care Provider [phone] Chapito Garcia MD Unavailable Radha Mac DPM Unavailable Encounter Details Date Type Department Care Team (Late st Contact Info) Description 06/05/2024 Nursing Facility [facility] [id number] [place] [id number] Tex Vargas, [facility] [address] [place], [place] [id number] Social History Tobacco Use Types Packs/Day Years Used Date Smoking Tobacco: Former Cigarettes 1 12 Smokeless Tobacco: Never Alcohol Use Standard Drinks/Week Comments No 0 (1 standard drink = 0.6 oz pur e alcohol) [facility] Utilities Answer Date Recorded In the past 12 months has [employer], gas, oil, or water userADgents threatened to shut off services in your home? Patient declined 05/25/2024 Social Connection and Isolation Panel [NHANES] A nswer Date Recorded In a typical week, how many times do you talk on the phone with family, friends, or neighbors? Patient declined 05/25/2024 How often do you get togethe r with friends or relatives? Patient declined 05/25/2024 How often do you attend scientology or religion serv ices? Patient declined 05/25/2024 Do you belong to any clubs o r organizations such as scientology groups, unions, fraternal or athletic groups, or [...] Recorded Total Score - Questions 1-9 0 /03/2022 [facility] - Occupational Stress [...] any time in the past 12 m [facility], were you homeless or living in a fpc (including now)? Patient declined 05/25/2024 Sexually Active Control Partners Comments Not Currently Comments No Sex and Gender Information Value Date Recorded Sex Assigned at Female 02/22/2023 8:54 AM CDT Legal Sex Female 7:09 PM CDT Gender Identity Female 02/22/2023 8:54 AM CDT Sexual Orientation Not on file documented as of this encounter Progress Notes * Tex Vargas, PAC - 06/05/2024 11:59 PM CST [facility] PROGRESS NOTE Khadra Beltran is a 64 y.o. female at [facility] for rehabilitation. Pt is s/p recent hospitalization from 05/25-05/29/2024 for PNA and UTI and suspected new SDH. Pt was initially sent to [facility] ED for evaluation of poss new Subdural hematoma noted onCTH, after a suspected fall from her wheelchair. She then transferred to higher level of care to [facility] and was seen by neurosurgery at [facility] and deemed to have a chronic SDH. During her hospitalization, she was found to have Community acquired PNA and Urine culture grew Enterococcus organism. Pt was transferred back to [facility] for treatment of her infection. Was seen in consultation by IRINA-Dr. Awad and deemed to have asymptomatic Bacteriauria and no infection in lungs either. Her antibiotics were stopped and pt was discharged back to [facility]. Subjective: Interval History: I am seeing this resident for routine follow up encounter. She is lying comfortably in bed and reports that she is feeling a lot better. She has no acute medical concerns at this time and specifically denies any SOB or urinary sxs. She feels like therapy is going well and hopes to be able to go home soon. Nursing staff with no concerns about the patient. Review of Systems: A 14 point comprehensive review of systems was negative except what is documented in interval history above. Objective: Exam: General: well developed well nourished, alert, oriented and in no acute distress Skin: normal coloration and turgor, no rashes HEENT: normocephalic, atraumatic. Pupils equal, round and reactive to light. Extraocular movements intact. Oronasopharynx pink and moist, no lesion or exudate. - UNGA. Neck: Supple. No JVD, lymphadenopathy thyromegaly or carotid bruits auscultated CVS: RRR, S1/S2 normal, no murmurs, gallops or rubs Chest: clear to auscultation, no wheezes, rales or rhonchi, symmetric air entry and normal respiratory effort Abdominal: soft, nontender, nondistended. Positive Bowel sounds, no organomegaly appreciated Extremities: no clubbing or cyanosis, trace edema in distal B LE. Neuro: alert and orient x 3. Moves all extremities well. Gait not tested. 4/5 strength in B ankle dorsiflexion, 4+/5 strength in B ankle plantarflexion, 5/5 strength throughout B UE and B LE otherwise. Lab Results: within normal limits Imaging: CTH showed chronic SDH and MVA REACTOR OPERATOR HEAD shunt intact. Assessment/Plan: Physical Deconditioning Resume therapy as ordered WC bound at baseline which she attributes to her hydrocephalus Suspected Community Acquired Pneumonia CXR was deemed negative for infection by Infection disease, therefore antibiotics were stopped 06/05 - no signs of PNA clinicially Enterococcus UTI vs Asymptomatic Bacteriuria Urine cx grew mult organisms Seen in hospital by ID and deemed to have asymptomatic bacteriuria Antibiotics were stopped 06/05 - No signs of UTI clinically Idiopathetic Normal Pressure Hydrocephalus with MVA REACTOR OPERATOR HEAD shunt Chronic SDH Seen by neurosurgery at [facility] and deemed to have chronic Subdural hematomas Monitor neuro checks DM type 2 Continue Lantus, Ozempic and sliding scale Monitor blood sugats COPD Not in exacerbation, continue inhalers Anxiety/depression/Bipolar Continue Risperidone and Depakote HTN/HLD Bp stable, continue statin and Norvasc VTE Prophylaxis: activity By: CASPER Velázquez 06/05/24 LOADER documented in this encounter Plan of Treatment Upcoming Encounters Date Type Department Care Team (Late st Contact Info) Description 12/21/2024 9:45 AM CDT Office Visit [facility] - Endocrinology - [address] [place] [address] Chapito Garcia MD [address] [phone] documented as of this encounter Visit Diagnoses Not on filedocumented in this encounter Care Teams Chief Development Officer Relationship Specialty Start Date End Date Sharon Moya MD [address] [place], [place] [id number] PCP - General Internal Medicine 09/16/21 Chapito Garcia MD [address] [phone] Consulting Physician Endocrinology 12/25/21 Radha Mac DPM [address] [phone] Consulting Physician Podiatry 05/26/22 documented as of this encounter
--- OUTSIDE RECORDS SUMMARY | 2024-12-07 18:01 | XMS_ITS | Clinical Summary ---
Author Organization [facility] Address [address] [place] [address] Care Team Providers Care Soft Hat Binder Name Role Phone Stuart Douglas MD Unavailable [phone] Wu Saleem MD Unavailable [phone] Dominique Peck NP Primary Care Provider Allergies Active Allergy Reactions Criticality Noted Date Comments Carbamazepine Itching,Rash,Other (See comments),Hives Medium 01/09/2017 Reaction: Reaction: Corticosteroids (Glucocorticoids) Other (See comments) Low 06/12/2021 PT STATED THEY RAISE HER BLOOD SUGAR Meperidine Other (See comments),Vomiting, Rash Medium 01/09/2017 Reaction: Reaction: Unknown, , , Reaction: Unknown, , Other reaction(s): Vomiting Reaction: Reaction: Unknown, , , Reaction: Unknown, , Other reaction(s): Vomiting Reaction: Reaction: Unknown, , , Reaction: Unknown, , Other reaction(s): Other (See comments), Vomiting Reaction: Reaction: Unknown, , , Reaction: Unknown, , Other reaction(s): Vomiting Reaction: Reaction: Unknown, , , Reaction: Unknown, , Other reaction(s): nausea and vomiting Metformin Diarrhea Low 03/02/2019 Other Unknown 01/20/2022 Prednisone Unknown 07/07/2022 Preservative Unknown 11/10/2016 Unclassified Drug Unknown 05/12/2022 Medications hydrOXYzine (VISTARIL) 25 mg capsuleIndications :anxiety Take 1 capsule (25 mg total) by mouth nightly Active melatonin tabletIndications: sleep aid Take 1 tablet (3 mg total) by mouth nightly as needed for sleep Active busPIRone (BUSPAR) 15 mg tabletIndications: Generalized Anxiety Disorder Take 1 tablet (15 mg total) by mouth 2 (two) times a day Active risperiDONE (RisperDAL) 0.5 mg tabletIndications: Depression associated with Bipolar Disorder Take 1 tablet (0.5 mg total) by mouth nightly Active divalproex ER (DEPAKOTE ER) 500 mg 24 hr tabletIndications: Bipolar Disorder Take 2 tablets (1,000 mg total) by mouth 2 (two) times a day Active aspirin 81 mg enteric coated tabletIndications: prevention of thrombosis Take 1 tablet (81 mg total) by mouth daily Active alendronate (FOSAMAX) 70 mg tabletIndications: Post-Menopausal Osteoporosis Take 1 tablet (70 mg total) by mouth every 7 days Take in the morning with a full glass of water, on an empty stomach, and do not take anything else by mouth or lie down for the next 30 min. on saturdays Active loratadine (CLARITIN) 10 mg tabletIndications: Allergic Rhinitis Take 1 tablet (10 mg total) by mouth daily Active atorvastatin (LIPITOR) 20 mg tabletIndications: hyperlipidemia Take 1 tablet (20 mg total) by mouth daily Active tamsulosin (FLOMAX) 0.4 mg extended release capsuleIndications :Urolithiasis 1 capsule (0.4 mg total) 2 (two) times a day Active acetaminophen (TYLENOL) 500 mg tabletIndications: Pain Take 2 tablets (1,000 mg total) by mouth 3 (three) times a day Active insulin glargine (LANTUS) 100 unit/mL injectionIndicatio ns:type 2 diabetes mellitus Inject 36 Units under the skin nightly Active levothyroxine (SYNTHROID) 150 mcg tablet Take 1 tablet (150 mcg total) by mouth piecer before breakfast Active furosemide (LASIX) 20 mg tabletIndications: Edema,hypertension Take 1 tablet (20 mg total) by mouth daily 30 tablet 1 10/13/19 20 Active trimethoprim (TRIMPEX) 100 mg tablet daily 05/23/20 20 Active senna (SENOKOT) 8.6 mg tablet Take 1 tablet by mouth nightly Active amLODIPine (NORVASC) 5 mg tablet 05/01/20 21 Active glipiZIDE XL (GLUCOTROL XL) 5 mg 24 hr tablet 08/07/19 22 Active citalopram (CeleXA) 20 mg tablet 08/12/19 22 Active dexAMETHasone (DECADRON) 6 mg tablet 06/19/20 21 Active hydrOXYzine (ATARAX) 25 mg tablet 08/01/19 22 Active ondansetron ODT (ZOFRAN-ODT) 4 mg disintegrating tablet Take 1 tablet (4 mg total) by mouth every 6 (six) hours as needed 06/19/20 21 Active ascorbic acid (VITAMIN C) 500 mg tablet,chewable Take by mouth Active cholecalciferol (VITAMIN D-3) 1,000 unit Take 2 tablet/capsule (2,000 Units total) by mouth Active zinc 50 mg tablet Take 1 tablet by mouth daily Active BD Akanksha 2nd Gen Pen Needle 32 gauge x needle 1 PEN NEEDLE BY DOES NOT APPLY ROUTE 4 TIMES DAILY. USE TO INJECT INSULIN 4X DAILY. 02/01/20 22 Active OneTouch Delica Plus Lancet 30 gauge misc 4 TIMES A DAY 12/18/19 22 Active HumaLOG 100 unit/mL pen for injection PLEASE SEE ATTACHED FOR DETAILED DIRECTIONS 02/08/20 22 Active hydrocortisone (ANUSOL-HC) 2.5 % rectal cream 12/05/19 20 Active dextromethorphan-g uaiFENesin (ROBITUSSIN-DM) 2-20 mg/mL liquid every 4 hours 04/14/20 21 Active fluticasone propionate (FLONASE) 50 mcg/actuation nasal spray 01/16/20 22 Active fluconazole (DIFLUCAN) 150 mg tablet 02/12/20 22 Active famotidine (PEPCID) 40 mg tablet 02/14/20 22 Active Premarin vaginal cream 12/19/19 22 Active diclofenac sodium (VOLTAREN) 1 % gel 12/19/19 22 Active Restasis 0.05 % ophthalmic emulsion 02/19/20 22 Active OneTouch Verio Reflect Meter misc USE DIRECTED TO TEST BLOOD GLUCOSE 3 TIMES DAILY 01/23/20 22 Active OneTouch Verio test strips strip 02/24/20 22 Active wheelchair device as directed 11/01/19 19 Active back brace misc as directed 06/01/20 17 Active miscellaneous medical supply misc as directed 12/10/19 18 Active blood-glucose meter misc USE TO CHECK BLOOD SUGAR THREE TIMES DAILY 08/22/19 22 Active diaper,brief,adult ,disposable mis as directed 03/30/20 18 Active diabetic supplies, miscellan. mis as directed 01/26/20 19 Active pen needle, diabetic 32 gauge x 3/16 needle as directed Act arleth lancets-blood glucose strips 30 gauge combo pack 4 TIMES A DAY 09/26/19 22 Active polyethylene glycol (MIRALAX) 17 gram packet 12/25/19 20 Active loratadine 10 mg capsule Take 1 tablet by mouth daily Active miscellaneous medical supply [facility] Power Scooter 12/25/19 18 Active NEBULIZER AND COMPRESSOR [facility] 04/14/20 21 Active potassium chloride in LR-D5 (dextrose 5% in Lactated Ringer's with potassium chloride 20 mEq/L) 20 mEq/L infusion daily Active underpads pad as directed 03/30/20 18 Active pregabalin (LYRICA) 50 mg capsule 06/06/20 22 Active empty container (BD Sharps Chain Maker Hand) [facility] 12/10/19 18 Active miconazole 200 mg suppository Insert 1 suppository (200 mg total) into the vagina nightly 05/17/20 23 Active nystatin powder Apply topically 2 (two) times a day 07/01/20 23 Active ipratropium (ATROVENT) 21 mcg (0.03 %) nasal sprayIndications:C hronic maxillary sinusitis Administer 2 sprays into each nostril every 12 (twelve) hours 90 mL 3 07/29/19 24 Active nitrofurantoin monohydrate (MACROBID) 100 mg capsule Take 1 capsule (100 mg total) by mouth 2 (two) times a day 10 capsule 10/14/19 24 Active Ozempic 0.25 mg or 0.5 mg (2 mg/3 mL) pen injector injection Inject 0.75 mL (0.5 mg total) as directed once a week Active linaCLOtide (LINZESS) 72 mcg capsule Take 1 capsule (72 mcg total) by mouth daily 30 capsule 11 11/30/19 24 Active cefdinir (OMNICEF) 300 mg capsule Take 1 capsule (300 mg total) by mouth 2 (two) times a day 12/09/19 24 Active cephalexin (KEFLEX) 500 mg capsule 01/28/20 24 Active Imvexxy Maintenance Pack 4 mcg insert vaginal insert 01/26/20 24 Active Yuvafem 10 mcg tablet 01/11/20 24 Active hydroxychloroquine (PLAQUENIL) 200 mg tablet Take 1 tablet (200 mg total) by mouth 2 (two) times a day 01/04/20 24 Active levoFLOXacin (LEVAQUIN) 750 mg tablet 02/01/20 24 Active methenamine (HIPREX) 1 gram tablet 11/29/19 24 Active terconazole (TERAZOL 7) 0.4 % vaginal cream 01/03/20 24 Active terconazole (TERAZOL 3) 0.8 % vaginal cream 01/21/20 24 Active sulfaSALAzine (AZULFIDINE) 500 mg tablet Take 1 tablet (500 mg total) by mouth daily 03/02/20 24 Active fluticasone-umecli din-vilanter (Trelegy Ellipta) 100-62.5-25 mcg inhalerIndications :Moderate persistent asthma without complication,SOB (shortness of breath) INHALE 1 PUFF BY MOUTH DAILY 60 each 3 11/03/19 25 Active insulin aspart (NovoLOG) 100 unit/mL (3 mL) pen for injection Inject 8 Units under the skin 05/25/20 24 Active primidone (MYSOLINE) 50 mg tablet 1/4 tab qhs for 1 week, 1/2 tab po qhs for 1 week, 1/4 tab qam and 1/2 tab qhs for 1 week, 1/2 tab po bid for 1 week, 1/2 tab qam, 1 tab qhs for 1 week, then 1 tab bid 120 tablet 3 11/22/19 25 Active Active Problems Problem Noted Date Diagnosed Date Tremor 11/26/2024 Personal history of colonic polyps 12/15/2023 Encounter for screening colonoscopy 12/15/2023 Epistaxis 06/09/2023 Assessment & Plan (06/09/2023 1:41 PM 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): Nasal saline spray (Simply saline, Little Remedies, [place], [place]) 2 second sprays or 2 squeezes into each nostril while looking down over the sink, do not need to sniff in 2-3 times daily Aquaphor apply pea-size amount into each nostril with a cotton tipped applicator, being carefully just to tuck it into each nostril, then massage soft portion of the outer nose to massage the ointment around inside the nose 2-3 times daily Augmentin twice daily with a meal for 14 days Diflucan as needed Rectal bleeding 07/30/2022 Overview (07/30/2022): Added automatically from request for surgery [id number] Assessment & Plan (08/06/2022 8:36 PM 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): Schedule sigmoidoscopy and treatment of hemorrhoids. Hemorrhoids 07/30/2022 Overview (07/30/2022): Added automatically from request for surgery [id number] Coronary artery disease invo lving [place] coronary artery of [place] heart without angina pectoris 02/25/2022 Coronary artery calcification 02/25/2022 Chronic pain 02/25/2022 Constipation 02/25/2022 Assessment & Plan (08/06/2022 8:43 PM 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): Chronic constipation. Start Linzess 72 Mcg daily. Once bowel movements start then she will need colonoscopy. Dyspnea on exertion 02/25/2022 Hyperkalemia 02/25/2022 Osteoporosis 02/25/2022 Upper respiratory infection 02/25/2022 Calcification of coronary artery 02/25/2022 Coronary atherosclerosis 02/25/2022 Abdominal pain, right lower quadrant 09/12/2021 Acquired hypothyroidism 06/15/2021 Elevated d-dimer 06/15/2021 Gastroesophageal reflux disease 06/15/2021 Pneumonia due to COVID-19 virus 06/15/2021 Chronic sinusitis 06/03/2021 Assessment & Plan (01/10/2024 11:51 AM CDT): Nasal saline spray (Simply saline, Little Remedies, [place], [place]) 2 second sprays or 2 squeezes into each nostril while looking down over the sink, do not need to sniff in. Followed by Flonase 2 sprays into each nostril while looking down over the sink, do not sniff in or blow nose after use for at least 30 minutes daily Augmentin twice daily with a meal for 14 days Assessment & Plan (11/05/2023 2:09 PM CDT): Acute on chronic with multiple symptoms of current flare Start azithromycin She has been counseled that sinus symptoms should be managed by ENT or primary care in the future Assessment & Plan (06/03/2021 2:53 PM 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): Nasal saline spray (Simply saline, Little Remedies, [place], [place]) 2 second sprays or 2 squeezes into each nostril while looking down over the sink, do not need to sniff in. Followed by the Atrovent 2 sprays into each nostril while looking down over the sink, do not sniff in or blow nose after use for at least 30 minutes twice daily Referral placed to Pulmonology for COPD and recurrent Pneumonia Nocturnal hypoxia 12/27/2020 Allergic rhinitis 05/21/2020 Assessment & Plan (01/10/2024 11:54 AM CDT): Blood allergy testing Assessment & Plan (12/24/2020 9:37 PM CDT): Continue home medications Assessment & Plan (07/15/2020 1:19 PM 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): Start Nasal saline spray (Simply saline, Little Remedies, [place], [place]) 2 second sprays or 2 squeezes into each nostril while looking down over the sink, do not need to sniff in. Followed by Flonase 2 sprays into each nostril while looking down over the sink, do not sniff in or blow nose after use for at least 30 minutes twice daily for one month, then may decrease to once daily if nasal congestion improved Continue Claritin 10 mg daily Assessment & Plan (05/21/2020 10:09 AM 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): Nasal saline spray (Simply saline, Little Remedies, [place], [place]) 2 second sprays or 2 squeezes into each nostril while looking down over the sink, do not need to sniff in. Followed by Flonase 2 sprays into each nostril while looking down over the sink, do not sniff in or blow nose after use for at least 30 minutes daily Continue Claritin 10 mg daily Acute recurrent maxillary sinusitis 05/21/2020 Assessment & Plan (08/09/2024 8:37 AM 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): Finish Doxycycline Follow up as needed Assessment & Plan (06/09/2023 1:40 PM 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): Nasal saline spray (Simply saline, Little Remedies, [place], [place]) 2 second sprays or 2 squeezes into each nostril while looking down over the sink, do not need to sniff in 2-3 times daily Aquaphor apply pea-size amount into each nostril with a cotton tipped applicator, being carefully just to tuck it into each nostril, then massage soft portion of the outer nose to massage the ointment around inside the nose 2-3 times daily Augmentin twice daily with a meal for 14 days Diflucan as needed Assessment & Plan (06/30/2022 10:04 AM 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): Nasal saline spray (Simply saline, Little Remedies, [place], [place]) 2 second sprays or 2 squeezes into each nostril while looking down over the sink, do not need to sniff in. Followed by Flonase 2 sprays into each nostril while looking down over the sink, do not sniff in or blow nose after use for at least 30 minutes daily Finish Augmentin and call if not completely gone by the end of the prescription Assessment & Plan (07/23/2021 12:07 PM 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): Augmentin with a meal twice daily for 10 days, call if no improvement Continue Atrovent 2 sprays into each nostril while looking down over the sink, do not sniff in or blow nose after use for at least 30 minutes 1-2 times daily Assessment & Plan (05/21/2020 8:56 PM 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): Nasal saline spray (Simply saline, Little Remedies, [place], [place]) 2 second sprays or 2 squeezes into each nostril while looking down over the sink, do not need to sniff in. Followed by Flonase 2 sprays into each nostril while looking down over the sink, do not sniff in or blow nose after use for at least 30 minutes daily Continue Claritin 10 mg daily Primary osteoarthritis of left knee 05/06/2020 Type 2 diabetes mellitus, wi th long-term current use of insulin 11/18/2019 Assessment & Plan (12/24/2020 9:34 PM CDT): Uncontrolled at this time. Patient received Decadron in the ED. patient is on Lantus 36 units nightly, mealtime insulin 2016. She follows with Dr. Garcia. Lantus has been resumed at 36 units. Will resume mealtime insulin at 16-9-12. High-dose sliding scale. Will add NPH to prednisone daily. Lung nodules 11/18/2019 Chronic diastolic (congestive) heart failure 03/2020 Assessment & Plan (12/24/2020 9:37 PM CDT): Continue Lasix and Arb with hold parameters. Elevated troponin 11/18/2019 LUZMARIA (acute kidney injury) 11/18/2019 Acute bronchitis 10/14/2019 Community acquired pneumonia 09/11/2019 Acute respiratory failure with hypoxia 0 Sinus congestion 09/08/2019 Right foot pain 06/23/2019 Chronic pain of multiple joints 02/24/2019 Assessment & Plan (12/24/2020 9:37 PM CDT): Continue p.r.n. Tylenol. Need to confirm whether patient is actually on Mobic given her renal function. Will hold Mobic at this time. Arthritis, multiple joint involvement 02/24/2019 Aftercare following right knee joint replacement surgery 11/29/2018 Gram negative sepsis 11/21/2018 Acute respiratory failure with hypoxemia 019 Assessment & Plan (12/24/2020 9:36 PM CDT): Patient does not wear oxygen at home. She presented with an SpO2 of 88% on room air. Likely secondary to COPD exacerbation. Feeling better at this time. Continue to monitor and wean oxygen as tolerated. Aspiration pneumonia 11/19/2018 Acute diastolic (congestive) heart failure 11/19 Morbid obesity with BMI of 40.0-44.9, adult 11/09 History of total right knee replacement 11/20/19 19 Toxic metabolic encephalopathy 11/17/2018 Essential hypertension 11/17/2018 Assessment & Plan (12/24/2020 9:31 PM CDT): Blood pressure is controlled. Home medications have been resumed with hold parameters. Will continue to monitor. HLD (hyperlipidemia) 11/17/2018 Assessment & Plan (12/24/2020 9:34 PM CDT): Continue statin Stage 3b chronic kidney disease 11/17/2018 Assessment & Plan (12/24/2020 9:35 PM CDT): Patient follows with Dr. Phan. Creatinine is at baseline. Avoid any unnecessary nephrotoxins. Will need to confirm whether patient is actually on Mobic given her renal function. Hold at this time. Idiopathic normal pressure hydrocephalus 018 Assessment & Plan (12/24/2020 9:34 PM CDT): Patient is wheelchair-bound and has been for 6 years because of this. Stage 4 chronic kidney disease 12/16/2015 Shoulder pain 04/05/2015 Overview (10/15/2016): Shoulder pain IDDM (insulin dependent diabetes mellitus) 04/05 Overview (10/15/2016): Diabetes Urinary tract infection 03/20/2015 Dizziness and giddiness 09/12/2014 Overview (10/15/2016): Dizziness and giddiness Abnormal gait 09/12/2014 Overview (02/25/2022): Abnormal gait Overview: Abnormal gait Abnormal gait Leiomyoma of uterus 07/19/2012 Overview (08/21/2020): Note: S/P MILO BSO 1992 W/HX ENDOMETRIOSIS Anxiety state 02/11/2011 Asthma 02/11/2011 Assessment & Plan (11/05/2023 2:10 PM CDT): Continue Trelegy Ellipta 100 daily Albuterol as needed, discussed indications for use No clinical signs of asthma exacerbation today Borderline glaucoma with steroid responders 09/2010 Heartburn 02/11/2011 Assessment & Plan (12/24/2020 9:37 PM CDT): Continue PPI Bipolar I disorder 02/11/2011 Assessment & Plan (12/24/2020 9:38 PM CDT): Continue home medications 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 Hyperglycemia Dehydration Resolved Problems Problem Noted Date Diagnosed Date Resolved Date Primary osteoarthritis of right knee 10/19/2018 02/09/2022 Overview (10/19/2018): Added automatically from request for surgery [id number] Bilateral primary osteoarthritis of knee 02/03/2017 02/09/2022 Encounters Date Type Department Care Team Description 11/30/2024 Telephone [facility] Scheduling [address] [place] [address] Radha Graham PA 11/21/2024 8:30 AM CDT Office Visit [facility] [address] [place] [address] Jerzy Edwards MD Idiopathic normal pressure hydrocephalus (CMS/HCC) (Primary Dx); Tremor 10/30/2024 9:15 AM CDT Lab [address] [address] 10/23/2024 10:05 AM CDT Lab [address] [address] 10/06/2024 10:00 AM CDT Office Visit [facility] [address] [facility] [address] [place] [address] Wu Saleem MD Thrombocytopenia, unspecified (Primary Dx) 10/06/2024 9:30 AM CDT Lab [facility] [address] [place] [address] Thrombocytopenia, unspecified from Last 3 Months Immunizations Immunization Administration Dates Next Due Heplisav-b (Hepatitis B) 04/23/2020 Influenza Virus Vaccine Trivalent Mdv 08/07/2018 Influenza, Quadrivalent, Kat l Culture-based MDCK, Antibiotic Free, Intramuscular 07/02/2021 Influenza, Quadrivalent, Kat l Culture-based MDCK, Preservative Free, Antibiotic Free, Intramuscular 03/05/2022,04/23/2020 Influenza, Quadrivalent, Spl it, Intramuscular 06/25/2023,07/02/2021,04/11/2019,07/12 Influenza, Quadrivalent, Spl it, Preservative Free, Intramuscular 04/18/2018 Influenza, Trivalent, Cell Culture-based MDCK, Preservative Free, Antibiotic Free, Intramuscular 03/05/2022,04/23/2020 Influenza, Trivalent, High D ose, Split, Preservative Free, Intramuscular 05/23/2014 Influenza, Trivalent, IM (MDV) 03/06/2022 Influenza, Trivalent, Preser vative Free, Intramuscular 05/02/2017,04/11/2016,04/11/2015 Influenza, Unspecified 03/06/2022,04/12/2019 PPD TEST 07/12/1999 Pneumococcal Conjugate PCV 13 08/25/2016 Pneumococcal Polysaccharide PPV23 02/13/2021,07/1999 Pneumococcal, Unspecified 07/12/1999 Sars-CoV-2, Unspecified 11/05/2020 Tdap 02/27/2017 Tetanus Toxoid, Unspecified 07/12/1999 Surgical History Surgery Date Site/Laterality Comments LUMBAR PUNCTURE WO INJECTION, DIAGNOSTIC 09/17/2014 N/A CHOLECYSTECTOMY APPENDECTOMY HYSTERECTOMY TOTAL KNEE ARTHROPLASTY 11/14/2018 Right BRAIN SURGERY EYE SURGERY JOINT REPLACEMENT COLONOSCOPY Medical History Medical History Date Comments Type 2 diabetes mellitus (HCC) D iabetes type 2 Hx Other Medical anemia Hx Other Medical Catracts Hypertension Hypertension Tension headache Headache, tensi on Hx Other Medical High cholestero l Hx Other Medical Bipolar Hx Other Medical Stomach Hypercholesteremia Osteoporosis Depression Arthritis Scoliosis GERD (gastroesophageal reflux disease) Chronic kidney disease stage 3 k idney disease Seizures (HCC) years ago Family History Medical History Relation Name Comments Diabetes type II Father Diabetes me llitus type 2; Hypertension Father Hypertension; Seizures Father Seizure disorde r; Stroke Father Stroke; Heart disease Mother Hypertension Mother Hypertension; Stroke Mother Stroke; Diabetes type II Other 1 Diabetes me llitus type 2; Breast cancer Other 2 Cancer, breast ; Hypertension Other 3 Hypertension; Seizures Other 4 Seizure disorde r; Other Other 5 Family history of diabetes and arthritis.; Relation Name Status Comments Father Mother Other 1 Other 2 Other 3 Other 4 Other 5 Social History Tobacco Use Types Packs/Day Years Used Date Smoking Tobacco: Former Cigarettes 1 12 0 07/12/1970 - 07/12/1982 Smokeless Tobacco: Never Tobacco Cessation:Counseling Given: Not Answered Alcohol Use Standard Drinks/Week Comments No 0 (1 standard drink = 0.6 oz pur e alcohol) Social Connection and Isolation Panel [NHANES] A nswer Date Recorded In a typical week, how many times do you talk on the phone with family, friends, or neighbors? Once a week 12/27/19 21 How often do you get togethe r with friends or relatives? Once a week 12/26/2020 How often do you attend chur or amish services? 1 to 4 times per year 12/26/2020 Do you belong to any clubs o r organizations such as episcopal groups, unions, fraternal or athletic groups, or school groups? No 12/26/2020 How often do you attend meet ings of the clubs or organizations you belong to? Never 12/26/2020 Are you , , di vorced, , never , or living with a partner? 12/26/2020 AUDIT-C Answer Date Recorded Q1: How often do you have a drink containing alc ohol? Never 09/08/2022 Average Number of Drinks Not on file 023 Q3: How often do you have si x or more drinks on one occasion? Never 09/08/2022 Overall Financial Resource Strain (CARDIA) Answe r Date Recorded How hard is it for you to pa y for the very basics like food, housing, medical care, and heating? Not very hard 12/26/2020 PHQ-2 Answer Date Recorded PHQ-2 Total Score (If total score is 3 or more points, staff should administer the PHQ-9) 6 09/12/2019 PRAPARE - Transportation Answer Date Re corded In the past 12 months, has l ack of transportation kept you from medical appointments or from getting medications? No 12/10 In the past 12 months, has l ack of transportation kept you from meetings, work, or from getting things needed for daily living? No 12/26/2020 Personal Safety Answer Date Recorded Have you ever been in or are you currently in a harmful physical or emotional relationship or is someone making you feel afraid or unsafe? Denies 01/09/2024 Comments No Sex and Gender Information Value Date Recorded Sex Assigned at Not on file Legal Sex Female 12:39 AM 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 Gender Identity Not on file Sexual Orientation Not on file Obstetrics History Para Term AB IAB SAB Ectopic Multiple Livin g Live Births 0 0 0 0 0 0 0 0 0 0 0 Last Filed Vital Signs Vital Sign Reading Time Taken Comments Blood Pressure 132/79 11/21/2024 8:23 AM CDT Pulse 74 11/21/2024 8:23 AM CDT Temperature 36.2 C (97.1 F) 10/06/2024 9:30 AM CDT Respiratory Rate 16 10/06/2024 9:30 AM CDT Oxygen Saturation 97% 11/21/2024 8:23 AM CDT Inhaled Oxygen Concentration - - Weight 88.1 kg (194 lb 3.2 oz) 10/06/2024 9:30 A M CDT Height 173 cm (5' 8.11) 11/21/2024 8:23 AM CDT Body Mass Index 29.43 08/09/2024 8:22 AM 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 Plan of Treatment Health Maintenance Due Date Last Done Comments Albumin Creatinine Ratio, Urine 1959 Colon Cancer Screening-Colonoscopy 1959 Dilated Eye Exam 1959 Foot Exam 1959 Zoster Vaccine (1 of 2) 1978 Lipid Panel 11/21/2019 11/20/2018, 09/10, 04/05/2017, Additional history exists Depression Screening 09/10/2020 09/11/2019, 11/22/2018, 11/19/2018, Additional history exists Fall Risk Assessment 12/27/2021 12/27/2020 Well Visit 65+ 2024 Covid-19 Vaccine (2023-2 5 season) 2024 10/25/2023, 09/09/2022, 09/18/2021, Additional history exists Hemoglobin A1C 11/20/2024 05/23/2024, 04/0 08/2019, 10/18/2018, Additional history exists Breast Cancer Screening-Mammogram 12/09/2024 12/10/2023, 12/10/2023, 09/28/2022, Additional history exists Influenza Vaccine (Season Ended) 2025 06/25/2023, 03/06/2022, 03/06/2022, Additional history exists eGFR 10/30/2025 10/30/2024, 10/10, 10/06/2024, Additional history exists Osteoporosis Screening-Bone Density Scan 11/02/2025 11/03/2023 Pneumococcal vaccine 65+ (4 of 4 - PCV20 or PCV21) 02/13/2026 02/13/2021, 08/25/2016, 07/12/1999, Additional history exists DTaP/Tdap/Td Vaccine (2 - Td or Tdap) 02/27/2027 02/27/2017 Hepatitis B Screening Completed 07/23/2023, 020 Hepatitis C Screening Completed 07/23/2023, 015 Medical Devices Implanted Type Area Steam Pressure Chamber Operator Device Identifier Shelf Expiration Date Model / Serial / Lot Shunt-11/05/2014 Implanted:2014 by Jerzy Redman MD (Quantity not on file) Shunt Right: Brain [employer] X [id number] / 0 / [id number] [employer] [id number] Attune Cementless Rotate Platform Knee 7 Baseplate Tibial - [id number] Implanted:Qty: 1 on 11/14/2018 by Stuart Douglas MD at [facility] Right: Knee [employer] 08/11/2027 [id number] / / [id number] [employer] [id number] Attune Cruciate Retain Cementless Knee Right 5 Component Femoral - [id number] Implanted:Qty: 1 on 11/14/2018 by Stuart Douglas MD at [facility] Right: Knee [employer] 02/09/2028 [id number] / / [id number] [employer] [id number] Attune 5mm Cruciate Retaining Rotate Platform Knee 5 Insert - [id number] Implanted:Qty: 1 on 11/14/2018 by Stuart Douglas MD at [facility] Right: Knee [employer] 08/11/2023 [id number] / / [id number] Procedures Procedure Name Priority Date/Time Associated Diagnosis Comments EGFR Routine 10/30/2024 9:32 AM CDT DIFFERENTIAL AUTO Routine 10/30/2024 9:3 2 AM CDT COMPREHENSIVE METABOLIC PANEL Routine 10/30/2024 9:32 AM CDT CBC WITH AUTO DIFFERENTIAL Routine 10/30/2024 9:32 AM CDT VALPROIC ACID LEVEL, TOTAL Routine 10/30/2024 9:32 AM CDT EGFR Routine 10/23/2024 10:17 AM CDT PROTEIN / CREATININE RATIO, URINE, RANDOM Routine 10/23/2024 10:17 AM CDT RENAL FUNCTION PANEL Routine 10/23/2024 10:17 AM CDT VITAMIN D 25 HYDROXY Routine 10/23/2024 10:17 AM CDT PTH Routine 10/23/2024 10:17 AM CDT DIFFERENTIAL AUTO Routine 10/06/2024 9:1 5 AM CDT Thrombocytopenia, unspecified CBC WITH AUTO DIFFERENTIAL Routine 10/06/2024 9:15 AM CDT Thrombocytopenia, unspecified EGFR Routine 10/06/2024 9:00 AM CDT Thrombocytopenia, unspecified COMPREHENSIVE METABOLIC PANEL Routine 10/06/2024 9:00 AM CDT Thrombocytopenia, unspecified SCREENING MAMMOGRAM BILATERAL W RAUL Schedule Routine, Read Routine (OP Routine) 12/10/2023 9:27 AM CDT Encounter for screening mammogram for malignant neoplasm of breast DEXA AXIAL SKELETON BONE DENSITY 1 OR MORE SITES Schedule Routine, Read Routine (OP Routine) 11/03/2023 1:33 PM CDT Age-related osteoporosis without current pathological fracture HEPATITIS C ANTIBODY Routine 07/23/2023 9:40 AM 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 Rheumatoid factor positive HEMOGLOBIN A1C Add-On 10/12/2019 6:42 AM CDT LIPID PANEL Timed 11/20/2018 12:47 AM CDT from Last 3 Months or Most Recently Relevant to Health Maintenance Results * (ABNORMAL) eGFR (10/30/2024 9:32 AM CDT) eGFR 34(L) >=60 mL/min/1. 73 m2 Comment: Interpretive Data Reference Interval Normal >/= 90 mL/min/1.73m2 Mildly decreased* 60 - 89 mL/min/1.73m2 Mildly to moderately decreased 45 - 59 mL/min/1.73m2 Moderately to severely decreased 30 - 44 mL/min/1.73m2 Severely decreased 15 - 29 mL/min/1.73m2 Kidney Failure < 15 mL/min/1.73m2 *Relative to young adult level Estimated glomerular filtration rate is determined by the 2020 CKD-EPI equation recommended by the National Kidney Foundation (A Unifying Approach to GFR Estimation: Recommendations of the NKF-ASK Task Force on Reassessing the Inclusion of Race in Diagnosing Kidney Disease, JASN 2020). The CKD-EPI equation should not be used for patients with unstable renal function and has not been validated in children and those over 70. Current interpretive data was last reviewed 2021. Blood 10/30/2024 9:32 AM CDT 10/30/2024 9:54 AM CDT us Zelda Malone MD LAB BLOOD ORDERABLES Final Resul t [facility] ([place]) [facility] Department [place] [address] * (ABNORMAL) Differential, auto (10/30/2024 9:32 AM CDT) Neutrophil abs 3.45 1.50 - 6.50 K/cumm Imm gran abs 0.06 0.00 - 0.10 K/cumm [facility] ([place]) Lymphocyte abs 1.64 0.80 - 3.30 K/cumm [facility] ([place]) Monocyte abs 0.86(H) 0.20 - 0.80 K/cumm [facility] ([place]) Eosinophil abs 0.09 0.00 - 0.50 K/cumm [facility] ([place]) Basophil abs 0.04 0.00 - 0.10 K/cumm [facility] ([place]) Neutrophil pct 56.1 % [facility] ([place]) Comment: Interpretive Data Percent cell count reference ranges are not reported, since discordance with absolute values may lead to misinterpretation of CBC data. Current Interpretive Data was last revised on 2017. Imm gran pct 1.0 % [facility] ([place]) Comment: Interpretive Data Percent cell count reference ranges are not reported, since discordance with absolute values may lead to misinterpretation of CBC data. Current Interpretive Data was last revised on 2017. Lymphocyte pct 26.7 % [facility] ([place]) Comment: Interpretive Data Percent cell count reference ranges are not reported, since discordance with absolute values may lead to misinterpretation of CBC data. Current Interpretive Data was last revised on 2017. Monocyte pct 14.0 % [facility] ([place]) Comment: Interpretive Data Percent cell count reference ranges are not reported, since discordance with absolute values may lead to misinterpretation of CBC data. Current Interpretive Data was last revised on 2017. Eosinophil pct 1.5 % [facility] ([place]) Comment: Interpretive Data Percent cell count reference ranges are not reported, since discordance with absolute values may lead to misinterpretation of CBC data. Current Interpretive Data was last revised on 2017. Basophil pct 0.7 % [facility] ([place]) Comment: Interpretive Data Percent cell count reference ranges are not reported, since discordance with absolute values may lead to misinterpretation of CBC data. Current Interpretive Data was last revised on 2017. Blood 10/30/2024 9:32 AM CDT 10/30/2024 9:54 AM CDT us Zelda Malone MD LAB BLOOD ORDERABLES Final Resul t [facility] ([place]) [address] [facility] Department [place] [address] * (ABNORMAL) CBC with auto differential (10/30/2024 9:32 AM CDT) WBC 6.14 3.80 - 9.90 K/cumm Hgb 13.4 11.9 - 15.5 g/dL [facility] ([place]) Hct 41.3 35.6 - 45.5 % [facility] ([place]) Plt 118(L) 150 - 400 K/cumm [facility] ([place]) MPV 11.9 9.1 - 12.3 fL [facility] ([place]) RBC 4.27 3.90 - 5.20 M/cumm [facility] ([place]) MCV 96.7(H) 81.3 - 96.4 fL [facility] ([place] MCH 31.4 27.1 - 33.3 pg [facility] ([place]) MCHC 32.4 32.3 - 35.7 g/dL [facility] ([place]) RDW CV 14.5 11.1 - 14.9 % [facility] ([place]) RDW SD 52.2(H) 35.7 - 48.1 fL [facility] NRBC abs 0.00 0.00 - 0.01 K/cumm [facility] Blood 10/30/2024 9:32 AM CDT 10/30/2024 9:54 AM CDT Zelda Malone MD LAB BLOOD ORDERABLES Final Resul t Performing Organization Address City/[facility]/ZIP Co de Phone Number [facility] ([place]) [address] [place] [address] [place] [address] * Valproic acid level, total (10/30/2024 9:32 AM CDT) Pathologist [facility] Valproic Acid 61.4 50.0 - 100.0 mcg/mL Comment: Interpretive Data Therapeutic range: 50-100 mcg/mL Current interpretive data was last revised on 2014 Blood 10/30/2024 9:32 AM CDT 10/30/2024 9:54 AM CDT Zelda Malone MD LAB BLOOD ORDERABLES Final Resul t [facility] ([place]) [address] [facility] [place] [address] * (ABNORMAL) Comprehensive metabolic panel (10/30/2024 9:32 AM CDT) Sodium 142 135 - 145 mmol/L Potassium, pl 4.9 3.3 - 4.9 mmol/L [facility] ([place]) Chloride 104 97 - 110 mmol/L [facility]) CO2 25 22 - 32 mmol/L [facility] ([place]) Anion gap 13 2 - 15 mmol/L [facility] ([place]) BUN 49(H) 6 - 25 mg/dL [facility] ([place]) Creatinine 1.65(H) 0.60 - 1.10 mg/dL [facility] ([place]) Glucose 223(H) 70 - 199 mg/dL [facility] ([place]) Comment: Interpretive Data Fasting glucose >/= 126 mg/dl is diagnostic for diabetes. Fasting is defined as no caloric intake for at least 8 hours. Fasting glucose between 100 mg/dl to 125 mg/dl is diagnostic of prediabetes. In a patient with classic symptoms of hyperglycemia or hyperglycemic crisis, a random glucose >/= 200 mg/dl is diagnostic for diabetes. In the absence of unequivocal hyperglycemia, results should be confirmed by repeat testing. The classification and Diagnosis of Diabetes Diabetes Care 2021; 46: S19-S40. Current interpretive data was last revised 2022. Calcium 9.8 8.5 - 10.3 mg/dL [facility] ([place]) Bilirubin, total 0.3 0.1 - 1.2 mg/dL [facility] ([place]) Protein, pl 6.8 6.5 - 8.5 g/dL [facility] ([place]) Albumin 4.1 3.5 - 5.0 g/dL [facility] ([place]) Alk phos 59 40 - 130 Units/L [facility] ([place] ALT 17 7 - 45 Units/L [facility] ([place] AST 20 10 - 45 Units/L [facility] ([place]) Comment:Slightly Hemolyzed S pecimen Blood 10/30/2024 9:32 AM CDT 10/30/2024 9:54 AM CDT us Zelda Malone MD LAB BLOOD ORDERABLES Final Resul t [facility] ([place]) [address] [facility] Department [place] [address] * (ABNORMAL) eGFR (10/23/2024 10:17 AM CDT) eGFR 36(L) >=60 mL/min/1. 73 m2 Comment: Interpretive Data Reference Interval Normal >/= 90 mL/min/1.73m2 Mildly decreased* 60 - 89 mL/min/1.73m2 Mildly to moderately decreased 45 - 59 mL/min/1.73m2 Moderately to severely decreased 30 - 44 mL/min/1.73m2 Severely decreased 15 - 29 mL/min/1.73m2 Kidney Failure < 15 mL/min/1.73m2 *Relative to young adult level Estimated glomerular filtration rate is determined by the 2020 CKD-EPI equation recommended by the National Kidney Foundation (A Unifying Approach to GFR Estimation: Recommendations of the NKF-ASK Task Force on Reassessing the Inclusion of Race in Diagnosing Kidney Disease, JASN 2020). The CKD-EPI equation should not be used for patients with unstable renal function and has not been validated in children and those over 70. Current interpretive data was last reviewed 2021. Blood 10/23/2024 10:1 7 AM CDT 10/23/2024 10:32 AM CDT Uche Phan MD LAB BLOOD ORDERABLES Final Res ult [facility] ([place]) [facility] Department of Laboratories [place], [place] [id number] * Protein / creatinine ratio, urine, random (10/23/2024 10:17 AM CDT) Protein, ur, quant 5.7 mg/dL Comment: Interpretive Data No reference range established. Current interpretive data was last revised 2018. Creatinine Ur 54.1 mg/dL [facility] ([place]) Comment: Interpretive Data No reference range established. Current interpretive data was last revised 2018. Protein/creatinin e ratio 105.4 0.0 - 180.0 mg/g CR [facility] ([place]) Urine 10/23/2024 10:1 7 AM CDT 10/23/2024 10:34 AM CDT Uche Phan MD LAB URINE ORDERABLES Final Res ult [facility] ([place]) [address] [place] [address] * Vitamin D 25 hydroxy (10/23/2024 10:17 AM CDT) Pathologist [facility] Vitamin D 25-OH 40 30 - 80 ng/mL Blood 10/23/2024 10:1 7 AM CDT 10/23/2024 10:32 AM CDT Uche Phan MD LAB BLOOD ORDERABLES Final Res ult Performing Organization Address City/[facility]/ZIP Co de Phone Number [facility] ([place]) [address] [facility] [place] [address] * (ABNORMAL) PTH (10/23/2024 10:17 AM CDT) Pathologist [facility] PTH 72(H) 15 - 65 pg/mL Blood 10/23/2024 10:1 7 AM CDT 10/23/2024 10:32 AM CDT Uche Phan MD LAB BLOOD ORDERABLES Final Res ult Performing Organization Address [facility]/ZIP Co de Phone Number [facility] ([place]) [address] [facility] [place] [address] * (ABNORMAL) Renal function panel (10/23/2024 10:17 AM CDT) Pathologist [facility] Sodium 143 135 - 145 mmol/L Potassium, pl 5.1(H) 3.3 - 4.9 mmol/L [facility] ([place]) Chloride 106 97 - 110 mmol/L [facility]) CO2 22 22 - 32 mmol/L [facility] ([place]) Anion gap 15 2 - 15 mmol/L [facility] ([place]) BUN 45(H) 6 - 25 mg/dL [facility] ([place]) Creatinine 1.60(H) 0.60 - 1.10 mg/dL [facility] ([place]) Glucose 151 70 - 199 mg/dL [facility] ([place]) Comment: Interpretive Data Fasting glucose >/= 126 mg/dl is diagnostic for diabetes. Fasting is defined as no caloric intake for at least 8 hours. Fasting glucose between 100 mg/dl to 125 mg/dl is diagnostic of prediabetes. In a patient with classic symptoms of hyperglycemia or hyperglycemic crisis, a random glucose >/= 200 mg/dl is diagnostic for diabetes. In the absence of unequivocal hyperglycemia, results should be confirmed by repeat testing. The classification and Diagnosis of Diabetes Diabetes Care 2021; 46: S19-S40. Current interpretive data was last revised 2022. Calcium 9.6 8.5 - 10.3 mg/dL [facility] ([place]) Phosphorus, pl 4.9(H) 2.3 - 4.5 mg/dL [facility] ([place]) Albumin 4.1 3.5 - 5.0 g/dL [facility] ([place]) Blood 10/23/2024 10:1 7 AM CDT 10/23/2024 10:32 AM CDT us Uche Phan MD LAB BLOOD ORDERABLES Final Res ult [facility] ([place]) [address] [facility] Department [place] [address] * Differential, auto (10/06/2024 9:15 AM CDT) Neutrophil abs 4.2 1.5 - 6.5 K/cumm Comment:Testing performed by : [facility] [address], Medical Office [facility] [address], [place] [address] Imm gran abs 0.0 0.0 - 0.1 K/cumm [facility] ([place]) Comment:Testing performed by : [facility] [address], Medical Office [facility] [address], [place] [address] Lymphocyte abs 1.5 0.8 - 3.3 K/cumm [facility] ([place]) Comment:Testing performed by : [facility] [address], Medical Office [facility] [address], [place] [address] Monocyte abs 0.7 0.2 - 0.8 K/cumm [facility] ([place]) Comment:Testing performed by : [facility] [address], Medical Office [facility] [address], [place] [address] Eosinophil abs 0.1 0.0 - 0.5 K/cumm [facility] ([place]) Comment:Testing performed by : [facility] [address], Medical Office [facility] [address], [place] [address] Basophil abs 0.0 0.0 - 0.1 K/cumm [facility] ([place]) Comment:Testing performed by : [facility] [address], Medical Office [facility] [address], [place] [address] Neutrophil pct 63.6 % [facility] ([place]) Comment: Interpretive Data Percent cell count reference ranges are not reported, since discordance with absolute values may lead to misinterpretation of CBC data. Current Interpretive Data was last revised on 2022. Testing performed by: [facility] [address], Medical Office [facility] [address], [place] [address] Imm gran pct 0.6 % [facility] ([place]) Comment: Interpretive Data Percent cell count reference ranges are not reported, since discordance with absolute values may lead to misinterpretation of CBC data. Current Interpretive Data was last revised on 2022. Testing performed by: [facility] [address], Medical Office [facility] [address], [place] [address] Lymphocyte pct 22.8 % [facility] ([place]) Comment: Interpretive Data Percent cell count reference ranges are not reported, since discordance with absolute values may lead to misinterpretation of CBC data. Current Interpretive Data was last revised on 2022. Testing performed by: [facility] [address], Medical Office [facility] [address], [place] [address] Monocyte pct 10.9 % [facility] ([place]) Comment: Interpretive Data Percent cell count reference ranges are not reported, since discordance with absolute values may lead to misinterpretation of CBC data. Current Interpretive Data was last revised on 2022. Testing performed by: [facility] [address], Medical Office [facility] [[email or web address] [address], [place] [address] Eosinophil pct 1.5 % [facility] ([place]) Comment: Interpretive Data Percent cell count reference ranges are not reported, since discordance with absolute values may lead to misinterpretation of CBC data. Current Interpretive Data was last revised on 2022. Testing performed by: [facility] [address], Medical Office [facility] B [facility] [[email or web address]] [address], [place] [address] Basophil pct 0.6 % [facility] ([place]) Comment: Interpretive Data Percent cell count reference ranges are not reported, since discordance with absolute values may lead to misinterpretation of CBC data. Current Interpretive Data was last revised on 2022. Testing performed by: [facility] [address], Medical Office [facility] [address], [place] [address] Blood 10/06/2024 9:15 AM CDT 10/06/2024 9:23 AM CDT Wu Saleem MD LAB BLOOD ORDERABLES Final Re sult [facility] ([place]) [address] [facility] [place] [address] * (ABNORMAL) CBC with auto differential (10/06/2024 9:15 AM CDT) WBC 6.5 3.8 - 9.9 K/cumm Comment:Testing performed by : [facility] [address], Medical Office [facility] B [facility] [[email or web address]] [address], [place] [address] Hgb 13.2 11.9 - 15.5 g/dL [facility] ([place]) Comment:Testing performed by : [facility] [address], Medical Office [facility] [address], [place] [address] Hct 41.9 35.6 - 45.5 % [facility] ([place]) Comment:Testing performed by : [facility] [address], Medical Office [facility] B [facility] [[email or web address]] [address], [place] [address] Plt 126(L) 150 - 400 K/cumm [facility] ([place]) Comment:Testing performed by : [facility] [address], Medical Office [facility] B [facility] [[email or web address]] [address], [place] [address] MPV 11.3 9.1 - 12.3 fL [facility] ([place]) Comment:Testing performed by : [facility] [address], Medical Office [facility] [address], [place] [address] RBC 4.31 3.90 - 5.20 M/cumm [facility] ([place]) Comment:Testing performed by : [facility] [address], Medical Office [facility] B [facility] [[email or web address]] [address], [place] [address] MCV 97.2(H) 81.3 - 96.4 fL [facility] ([place]) Comment:Testing performed by : [facility] [address], Medical Office [facility] [address], [place] [address] MCH 30.6 27.1 - 33.3 pg [facility] ([place]) Comment:Testing performed by : [facility] [address], Medical Office [facility] B [facility] [[email or web address]] [address], [place] [address] MCHC 31.5(L) 32.3 - 35.7 g/dL [facility] ([place]) Comment:Testing performed by : [facility] [address], Medical Office [facility] [[email or web address]] [address], [place] [address] RDW CV 14.6 11.1 - 14.9 % [facility] ([place]) Comment:Testing performed by : [facility] [address], Medical Office [facility] B [facility] [[email or web address]] [address], [place] [address] RDW SD 53.2(H) 35.7 - 48.1 fL [facility] ([place]) Comment:Testing performed by : [facility] [address], Medical Office [facility] B [facility] [[email or web address]] [address], [place] [address] NRBC abs Not Measured 0.00 - 0.01 K/cumm [facility] ([place]) Comment:Testing performed by : [facility] [address], Medical Office [facility] B [facility] [[email or web address]] [address], [place] [address] Blood 10/06/2024 9:15 AM CDT 10/06/2024 9:23 AM CDT us Wu Saleem MD LAB BLOOD ORDERABLES Final Re sult Performing Organization Address [facility] Co de Phone Number [facility] ([place]) [address] [facility] Department [place] [address] * (ABNORMAL) eGFR (10/06/2024 9:00 AM CDT) eGFR 34(L) >=60 mL/min/1. 73 m2 Comment: Interpretive Data Reference Interval Normal >/= 90 mL/min/1.73m2 Mildly decreased* 60 - 89 mL/min/1.73m2 Mildly to moderately decreased 45 - 59 mL/min/1.73m2 Moderately to severely decreased 30 - 44 mL/min/1.73m2 Severely decreased 15 - 29 mL/min/1.73m2 Kidney Failure < 15 mL/min/1.73m2 *Relative to young adult level Estimated glomerular filtration rate is determined by the 2020 CKD-EPI equation recommended by the National Kidney Foundation (A Unifying Approach to GFR Estimation: Recommendations of the NKF-ASK Task Force on Reassessing the Inclusion of Race in Diagnosing Kidney Disease, JASN 2020). The CKD-EPI equation should not be used for patients with unstable renal function and has not been validated in children and those over 70. Current interpretive data was last reviewed 2021. Testing performed by: [place], [address] Blood 10/06/2024 9:00 AM CDT 10/06/2024 9:55 AM CDT Wu Saleem MD LAB BLOOD ORDERABLES Final Re sult Performing Organization Address [facility]/ZIP Co de Phone Number [facility] ([place]) [address] [facility] Department [place] [address] * (ABNORMAL) Comprehensive metabolic panel (10/06/2024 9:00 AM CDT) Sodium 136 135 - 145 mmol/L Comment:Testing performed by : [place], [address] Potassium, pl 5.3(H) 3.3 - 4.9 mmol/L [facility] ([place]) Comment:Testing performed by : [facility], [facility], [place], [address] Chloride 101 97 - 110 mmol/L [facility] ([place]) Comment:Testing performed by : [facility], [facility], [place], [address] CO2 24 22 - 32 mmol/L [facility] ([place]) Comment:Testing performed by : [facility], [place], [address] Anion gap 11 2 - 15 mmol/L [facility] ([place]) Comment:Testing performed by : [facility], [facility], [place], [address] BUN 48(H) 6 - 25 mg/dL [facility] ([place]) Comment:Testing performed by : [facility], [place], [address] Creatinine 1.67(H) 0.60 - 1.10 mg/dL [facility] ([place]) Comment:Testing performed by : [facility], [place], [address] Glucose 380(H) 70 - 199 mg/dL [facility] ([place]) Comment: Interpretive Data Fasting glucose >/= 126 mg/dl is diagnostic for diabetes. Fasting is defined as no caloric intake for at least 8 hours. Fasting glucose between 100 mg/dl to 125 mg/dl is diagnostic of prediabetes. In a patient with classic symptoms of hyperglycemia or hyperglycemic crisis, a random glucose >/= 200 mg/dl is diagnostic for diabetes. In the absence of unequivocal hyperglycemia, results should be confirmed by repeat testing. The classification and Diagnosis of Diabetes Diabetes Care 2021; 46: S19-S40. Current interpretive data was last revised 2022. Testing performed by: [facility], [place], [address] Calcium 9.4 8.5 - 10.3 mg/dL [facility] ([facility]) Comment:Testing performed by : [facility], [place], [address] Bilirubin, total 0.3 0.1 - 1.2 mg/dL [facility] ([place]) Comment:Testing performed by : [facility], [place], [address] Protein, pl 6.4(L) 6.5 - 8.5 g/dL [facility] ([place]) Comment:Testing performed by : [facility], [facility], [place], [address] Albumin 4.1 3.5 - 5.0 g/dL [facility] ([facility]) Comment:Testing performed by : [facility], [facility], [place], [address] Alk phos 71 40 - 130 Units/L [facility] ([facility]) Comment:Testing performed by : [facility], [facility], [place], [address] ALT 19 7 - 45 Units/L [facility] ([facility]) Comment:Testing performed by : [facility], [facility], [place], [address] AST 18 10 - 45 Units/L [facility] ([facility]) Comment:Testing performed by : [facility], [facility], [place], [address] Blood 10/06/2024 9:00 AM CDT 10/06/2024 9:55 AM CDT Wu Saleem MD LAB BLOOD ORDERABLES Final Re sult [facility] ([place]) 1 [facility] Department [place] [address] * Screening Mammogram Bilateral W Raul (12/10/2023 9:27 AM CDT) Anatomical Region Laterality Modality Breast Bilateral Mammography 12/10/2023 4:48 PM CDT Impressions 12/10/2023 4:48 PM CDT There is no mammographic evidence of malignancy. A 1 year screening mammogram is recommended. BI-RADS: 2 - Benign. The patient has been or will be contacted. The patient will be entered into a reminder system with a target due date of 1 year for her next mammogram. Electronically signed by: NORM CARPENTER Narrative 12/10/2023 4:48 PM CDT EXAMINATION: SCREENING MAMMOGRAM BILATERAL W RAUL ORDERING HEALTHCARE PROVIDER: NONA CONKLIN HISTORY: Routine screening mammography. COMPARISON: 09/28/2022, 04/22/2021, 04/30/2017. TECHNIQUE: CC and MLO views of both breasts were obtained with digital technique using digital breast tomosynthesis with C view. Computer aided detection was utilized. FINDINGS: DENSITY: The breasts are heterogeneously dense, which may obscure small masses. BREASTS: There are benign microcalcifications in both breasts without suspicious interval change. There are also unchanged benign masses in the left breast. There is no new suspicious finding in either breast on mammogram. Nona Conklin MD IM MAMMO PROCEDURES Final Re sult * Dexa Axial Skeleton Bone Density 1 or 2 Site (11/03/2023 1:33 PM CDT) Anatomical Region Laterality Modality Body N/A Other 11/03/2023 8:55 PM CDT Narrative 11/03/2023 8:56 PM CDT EXAM DESCRIPTION: DEXA AXIAL SKELETON BONE DENSITY 1 OR MORE SITES REASON FOR STUDY: 63 y/o year old F with given history of: Osteoporosis Screening. Steam Pressure Chamber Operator/Model: CodeRyte SL (S/N [id number]) CLINICAL INFORMATION: Current height: 64 inches Maximum height: 64 inches Weight: 211 pounds Risk factors: Postmenopausal, asthma or emphysema COMPARISON: None available FINDINGS: AP LUMBAR SPINE L1-L4: Total BMD is 1.185 g/cm2 T-score is 1.3 LEFT HIP: Total BMD is 0.871 g/cm2 T-score is -0.6 Femoral neck BMD is 0.646 g/cm2 T-score is -1.8 FRAX: 10 year risk for a major osteoporotic fracture is 9.1 %, 10 year risk for a hip fracture is 1.1 % IMPRESSION: Low Bone Mass. REFERENCE: Bone mineral density: T-Score: Normal (T-score above or = -1.0) Low bone mass (T-score between -1.0 and -2.5) replaces the previously used term osteopenia Osteoporosis (T-score = or below -2.5) Z-Score: Within the expected range for age (Z-score above -2.0) Below the expected range for age (Z-score is -2.0 or below) Please see below follow up recommendations. Medical evaluation for secondary causes of low bone mineral density may be appropriate. FRAX is a World Health Organization validated fracture risk assessment tool that calculates a person's 10 year probability of a major osteoporosis related fracture and hip fracture. According to the National Osteoporosis Foundation guidelines, postmenopausal women and men age 50 or older with low bone mass and a 10 year probability of a major osteoporosis related fracture = or greater than 20% or a 10 year probability of a hip fracture = or greater than 3% should be considered for pharmacological treatment for the prevention of osteoporosis. For further information, including treatment recommendations, please refer to the 2019 ISCD Official Positions (http://www.iscd.org) and the NOF's Clinician's Guide to Prevention and Treatment of Osteoporosis (http://www.nof.org/professionals/clinical-guidelines) THIS IS AN ELECTRONICALLY VERIFIED FINAL REPORT 11/03/2023 8:56 PM - Electronically signed by Jerzy Velazquez M.D. MF: BREANNA Report ID: [id number] Reading Location: [place] [address] Procedure Note Jerzy Velazquez MD - 11/03/2023 EXAM DESCRIPTION: DEXA AXIAL SKELETON BONE DENSITY 1 OR MORE SITES REASON FOR STUDY: 63 y/o year old F with given history of:Osteoporosis Screening. Steam Pressure Chamber Operator/Model: CodeRyte SL (S/N [id number]) CLINICAL INFORMATION: Current height: 64 inches Maximum height: 64 inches Weight: 211 pounds Risk factors: Postmenopausal, asthma or emphysema COMPARISON: None available FINDINGS: AP LUMBAR SPINE L1-L4: Total BMD is 1.185 g/cm2 T-score is 1.3 LEFT HIP: Total BMD is 0.871 g/cm2 T-score is -0.6 Femoral neck BMD is 0.646 g/cm2 T-score is -1.8 FRAX: 10 year risk for a major osteoporotic fracture is 9.1 %, 10 year risk fora hip fracture is 1.1 % IMPRESSION: Low Bone Mass. REFERENCE: Bone mineral density: T-Score: Normal (T-score above or = -1.0) Low bone mass (T-score between -1.0 and -2.5) replaces thepreviously used term osteopenia Osteoporosis (T-score = or below -2.5) Z-Score: Within the expected range for age (Z-score above -2.0) Below the expected range for age (Z-score is -2.0 or below) Please see below follow up recommendations. Medical evaluation forsecondary causes of low bone mineral density may be appropriate. FRAX is a World Health Organization validated fracture risk assessmenttool that calculates a person's 10 year probability of a major osteoporosisrelated fracture and hip fracture. According to the National OsteoporosisFoundation guidelines, postmenopausal women and men age 50 or older with low bonemass and a 10 year probability of a major osteoporosis related fracture = or greater than 20% or a 10 year probability of a hip fracture = or greaterthan 3% should be considered for pharmacological treatment for the preventionof osteoporosis. For further information, including treatment recommendations, please referto the 2019 ISCD Official Positions (http://www.iscd.org) and the NOF's Clinician's Guide to Prevention and Treatment of Osteoporosis (http://www.nof.org/professionals/clinical-guidelines) THIS IS AN ELECTRONICALLY VERIFIED FINAL REPORT 11/03/2023 8:56 PM - Electronically signed by Jerzy Velazquez M.D. MF: BREANNA Report ID: [id number] Reading Location: [place] [address] us Sharon Moya MD IMG DXA PROCEDURES Final Resu lt * Hepatitis C antibody Blood (07/23/2023 9:40 AM 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) Hep C Ab Nonreactive Nonreactive DAYN CARROLL Comment:Antibodies to HCV no t detected. Does NOT exclude the possibility of recent exposure to HCV. Current interpretive data was last revised on 22 Blood 07/23/2023 9:40 AM 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 07/23/2023 10:02 AM 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 us Amadeo Gamez MD LAB MICROBIOLOGY - GENERA L ORDERABLES Final Result [facility] One [facility] Department [place] [address] * (ABNORMAL) Hemoglobin A1c (10/12/2019 6:42 AM CDT) Hgb A1C 7.7(H) 4.0 - 5.6 % [facility] ([place]) Estimated Average Glucose 174 mg/dL [facility] ([place]) Comment: The ADA recommends reporting an estimated Average Glucose (eAG) with all Hemoglobin A1c results using the equation derived from a study of 507 normal and diabetic adults. Minority populations were underrepresented and children were not included. (Diabetes Care 31:1986-5828, 2008). The eAG is not equivalent to a fasting glucose. Blood specimen (specimen) 10/12/2019 6:42 AM CDT 10/13/2019 11:17 AM CDT Kwaku Menezes MD LAB BLOOD ORDERABLES Final Resul t [facility]AN [facility]) 1 [facility] Department [place] [address] * (ABNORMAL) Lipid panel (11/20/2018 12:47 AM CDT) Cholesterol 98 30 - 199 mg/dL [facility] ([place]) Comment: Interpretive Data Ages < or = 19 years Acceptable: <170 mg/dL Borderline high: 170-199 mg/dL High: >or= 200 mg/dL Ages > or = 20 years Desirable: <200 mg/dL Borderline high: 200-239 mg/dL High: >or= 240 mg/dL Literature References: 1. Expert Panel on Integrated Guidelines for Cardiovascular Health and Risk Reduction in Children and Adolescents. Pediatrics 2011;128:S213 2. NCEP Expert Panel. Circulation 2004;110:227 Current Interpretive Data was last revised on 2018. Triglycerides 144 <=149 mg/dL [facility] ([place]) Comment: Interpretive Data Ages < or = 9 years Acceptable: <75 mg/dL Borderline high: 75-99 mg/dL High: >or= 100 mg/dL Ages 10 to 20 years Acceptable: <90 mg/dL Borderline high: 90-129 mg/dL High: >or= 130 mg/dL Ages > or = 20 years Desirable: <150 mg/dL Borderline high: 150-199 mg/dL High: 200-499 mg/dL Very high: >or= 499 mg/dL Literature References: 1. Expert Panel on Integrated Guidelines for Cardiovascular Health and Risk Reduction in Children and Adolescents. Pediatrics 2011;128:S213 2. NCEP Expert Panel. Circulation 2004;110:227 Current Interpretive Data was last revised on 2018. HDL 21(L) >=40 mg/dL [facility] ([place]) Comment: Interpretive Data Ages < or = 19 years Acceptable: >45 mg/dL Borderline low: 40-45 mg/dL Low: <40 mg/dL Ages > or = 20 years Desirable: >or= 60 mg/dL Low: <40 mg/dL Literature References: 1. Expert Panel on Integrated Guidelines for Cardiovascular Health and Risk Reduction in Children and Adolescents. Pediatrics 2011;128:S213 2. NCEP Expert Panel. Circulation 2004;110:227 Current Interpretive Data was last revised on 2018. LDL, calculated 48 <=129 mg/dL [facility] ([place]) Comment: Interpretive Data Ages < or = 19 years Acceptable: <110 mg/dL Borderline high: 110-129 mg/dL High: >or= 130 mg/dL Ages > or = 20 years Optimal: <100 mg/dL Near optimal: 100-129 mg/dL Borderline high: 130-159 mg/dL High: >160 mg/dL Literature References: 1. Expert Panel on Integrated Guidelines for Cardiovascular Health and Risk Reduction in Children and Adolescents. Pediatrics 2011;128:S213 2. NCEP Expert Panel. Circulation 2004;110:227 Current Interpretive Data was last revised on 2018. Non-HDL Cholesterol 77 mg/dL [facility] ([place]) Comment: Interpretive Data Ages < or = 19 years Acceptable: <120 mg/dL Borderline high: 120-144 mg/dL High: >145 mg/dL Ages > or = 20 years When triglycerides are >200 mg/dL, Non-HDL cholesterol is a secondary target of therapy with treatment goals that are 30 mg/dL greater than the LDL cholesterol target. Literature References: 1. Expert Panel on Integrated Guidelines for Cardiovascular Health and Risk Reduction in Children and Adolescents. Pediatrics 2011;128:S213 2. NCEP Expert Panel. Circulation 2004;110:227 Current Interpretive Data was last revised on 2018. Chol/HDL ratio 5 [facility]UAN [facility] ([place]) Blood specimen (specimen) 11/20/2018 12:47 AM CDT 11/20/2018 12:49 AM CDT Narrative [facility] ([place]) - 11/20/2018 1:38 AM CDT This lipid panel was automatically ordered due to a Troponin-T. The dietary status of the patient at the collection time should be correlated with the lipid results. (Reflex test added by rule GL_MBC_CH_TROPT_LIPID; ag1) us Tony Patterson MD LAB BLOOD ORDERABLES Final R esult [facility] ([facility]) 1 [facility] Department [place] [address] from Last 3 Months or Most Recently Relevant to Health Maintenance Insurance [address] [place] [address] IDNE [facility] MEDICARE ADVANTAGE [facility] Address: [address] [address] [place] [address] [address] [place] [phone] [facility] MEDICARE ADVANTAGE [facility] Address: [address] [address] [place] [address] [place] [phone] [facility] MEDICARE ADVANTAGE [address] [place] [address] [facility] MEDICARE ADVANTAGE [facility] Address: [address] [address] [place] [address] IDPA Advance Directives For more information, please contact: [phone] * Full Code (Latest Code Status on File) Date Activated Date Inactivated Comments 12/24/2020 2:51 PM 12/27/2020 5:45 PM * Full Code Date Activated Date Inactivated Comments 11/18/2019 4:45 PM 11/20/2019 5:13 PM * Full Code Date Activated Date Inactivated Comments 10/11/2019 12:37 PM 10/13/2019 6:01 PM * Full Code Date Activated Date Inactivated Comments 09/11/2019 6:07 PM 09/16/2019 5:59 PM * Full Code Date Activated Date Inactivated Comments 11/19/2018 11:50 AM 11/24/2018 10:15 PM Care Teams Soft Hat Binder Relationship Specialty Start Date End Date Dominique Peck NP [address] [place] [address] [address] [place] [address] PCP - General Nurse Practitioner 11/25/24 Stuart Douglas MD Surgeon Orthopedic Surgery 11/24/18 Wu Saleem MD [address] [place] [address] [address] Client Services Account Manager Hematology and Oncology 08/22/24
--- OUTSIDE RECORDS SUMMARY | 2024-12-07 18:01 | XMS_ITS | Encounter Summary ---
Author Organization [facility] Healthcare Address [address] [place] [address] Care Team Providers Care Senior Occupational Therapist Name Role Phone Javi Jones MD Unavailable [phone] Amarilis Rivera PT Unavailable Unavailable Stuart Douglas MD Unavailable [phone] Sharon Moya MD Primary Care Provider [phone] Wu Saleem MD Unavailable [phone] Dominique Peck NP Primary Care Provider Reason for Visit * Auth/Cert Specialty Diagnoses / Procedures Referred By Casi t Referred To Contact Diagnoses Rectal bleeding Personal history of colonic polyps Encounter for screening colonoscopy Rectal bleeding [K62.5] Personal history of colonic polyps [Z86.010] Encounter for screening colonoscopy [Z12.11] Procedures NY COLONOSCOPY FLX DX W/COLLJ SPEC WHEN PFRMD COLONOSCOPY Referral ID Status Reason Start Date Expiration Date Visits Re quested Visits Authorized [id number] 1 1 Encounter Details Date Type Department Care Team (Late st Contact Info) Description 01/17/2024 Hospital Encounter [facility] [address] [place] [address] Hosea Osorio MD [address] [place] [address] [address] Social History Tobacco Use Types Packs/Day Years Used Date Smoking Tobacco: Former Cigarettes 1 12 0 07/12/1970 - 07/12/1982 Smokeless Tobacco: Never Alcohol Use Standard Drinks/Week [...] 12/26/2020 How often do you attend chur ch or pentecostal services? 1 to 4 times per year 12/26/2020 Do you belong to any clubs o r organizations such as hinduism groups, unions, fraternal or athletic groups, or [...] on file Legal Sex Female 12:39 AM CIRCULATION TENDER Gender Identity Not on file Sexual Orientation Not on file documented as of this encounter Plan of Treatment Not on file documented as of this encounter Visit Diagnoses Diagnosis Rectal bleeding Hemorrhage of rectum and anus Personal history of colonic polyps Encounter for screening colonoscopy documented in this encounter Admitting Diagnoses Diagnosis Rectal bleeding Hemorrhage of rectum and anus Personal history of colonic polyps Encounter for screening colonoscopy documented in this encounter Care Teams Senior Occupational Therapist Relationship Specialty Start Date End Date Sharon Moya MD [address] [facility] [address] [place] [address] PCP - General 08/18/21 11/24/24 Dominique Peck, JARETT [address] [facility] [address] [place] [address] PCP - General Nurse Practitioner 11/25/24 Javi Jones MD [address] [place], [place] [id number] Referring Physician Orthopedic Surgery 01/20/18 5 Amarilis Rivera, PT Physical Therapist Physical Therapy 01/24/18 10/05/24 Stuart Douglas MD Surgeon Orthopedic Surgery 11/24/18 Wu Saleem MD [address] [facility] [address] [place] [address] Meat Cutting Block Repairer Hematology and Oncology 08/22/24 documented as of this encounter
--- OUTSIDE RECORDS SUMMARY | 2024-12-07 18:01 | XMS_ITS | Encounter Summary ---
Author Organization [facility] Healthcare Address [address] [place] [address] Care Team Providers Care Manager Shell Name Role Phone Javi Jones MD Unavailable [phone] Amarilis Rivera PT Unavailable Unavailable Stuart Douglas MD Unavailable [phone] Anthony Burks MD Primary Care Provider [phone] Miscellaneous, Not In File Primary Care Provider Unavailable Unknown, Notinfile Primary Care Provider Unavail able Sharon Moya MD Primary Care Provider [phone] Wu Saleem MD Unavailable [phone] Dominique Peck NP Primary Care Provider Encounter Details Date Type Department Care Team (Late st Contact Info) Description 02/12/2020 Telephone [facility] 1 [place] [address] Traci Urrutia, RT Social History Tobacco Use Types Packs/Day Years [...] family, friends, or neighbors? Once a week 10/12/2019 How often do you get together with friends or re latives? Once a week 10/12/2019 Attends Gnosticist Services Not on file 10/11 Do you belong to any clubs o r organizations such as gnosticist groups, unions, fraternal or athletic groups, or school groups? Yes 10/12/2019 Attends Club or Organization Meetings Not on micheal e 10/12/2019 Marital Status Not on file 10/12/2019 Overall Financial Resource Strain (CARDIA) Answe r Date Recorded How hard is it for you to pa y for the very basics like food, housing, medical care, and heating? Not hard at all 09/12/2019 PHQ-2 Answer Date Recorded PHQ-2 Total Score (If total score is 3 or more points, staff should administer the PHQ-9) 6 09/12/2019 PRAPARE - Transportation Answer Date Re corded In the past 12 months, has l ack of transportation kept you from medical appointments or from getting medications? 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 Gender Identity Not on file Sexual Orientation Not on file documented as of this encounter Plan of Treatment Not on file documented as of this encounter Visit Diagnoses Not on filedocumented in this encounter Additional Health Concerns Infection Onset Date Last Indicated Resolved Time COVID: Suspected 09/22/2020 09/22/2020 09/22/2020 1:28 PM CDT COVID: Suspected 11/21/2020 11/21/2020 11/21/2020 1:53 PM CDT COVID: Suspected 12/24/2020 12/24/2020 12/24/2020 12:04 PM CDT documented as of this encounter Care Teams Manager Shell Relationship Specialty Start Date End Date Anthony Burks MD PCP - General 09/08/19 08/04/21 Miscellaneous, Not In File PCP - General 08/05/21 08/05/21 Unknown, Notinfile PCP - General 08/06/21 08/17/21 Sharon Moya MD [address] [place] [address] PCP - General 08/18/21 11/24/24 Dominique Peck NP [address] [facility] [address] [place] [address] PCP - General Nurse Practitioner 11/25/24 Javi Jones MD [address] [place] [address] Referring Physician Orthopedic Surgery 01/20/18 5 Amarilis Rivera, PT Physical Therapist Physical Therapy 01/24/18 10/05/24 Stuart Douglas MD Surgeon Orthopedic Surgery 11/24/18 Wu Saleem MD [address] [facility] [address] [place] [address] Business Control Manager Hematology and Oncology 08/22/24 documented as of this encounter
--- OUTSIDE RECORDS SUMMARY | 2024-12-07 18:01 | XMS_ITS | Continuity of Care Document ---
Author Organization [facility] Address [address] [facility] [address] [place] [address] Phone Care Team Providers Care Distributor Cleaner Name Role Phone Sergo FLORES, Jerzy Unavailable [...] Copied on Encounter Office/outpati ent Visit, Est [facility], [address] [place] [address] [address], [place], [place], [id number], [place] tel:[phone] [facility] [place] No Information [address] Sergo Bertrand. [facility] [place], [place], [id number], [place]. tel:[phone] Referring Provider: Tony Forrester, [address] [place], [address]. tel:[phone] [facility], [address], [place], [place], [id number], tel:[phone] [facility] [place] No Information 8-201 0 Cesario Jimenez. [address] [place], [place], [facility], [place]. tel:[phone] Referring Provider: Dante Simmons OD A, [address] [facility] [facility] [address], [place], [place], [facility]. tel:[phone] [facility], [address] [place] [address] [address], [place], [place], [id number], [place] tel:[phone] [facility] [place] No Information 9-201 0 Simmons OD Dante. [address] [facility] , [address], [place], [place], [facility], [place]. tel:[phone] [facility], [address] [place] [address] [address], [place], [place], [id number], [place] tel:[phone] [facility] No Information 2-200 9 Cesario Jimenez. [address] [place], [place], [facility], [place]. tel:[phone] Referring Provider: Tony Forrester, [address] [place], [place], [facility]. tel:[phone] Office Consultation [facility], [address] [place] [address] [address], [place], [place], [id number], [place] tel:[phone] SEC [facility] No Information 7-200 8 Cesario Jimenez. [address] [place], [place], [facility], [place]. tel:[phone] Referring Provider: Ellis Hearn OD, [address], [place], [address]. tel:[phone] Family History Family Member Type Diagnosis Age At Onset No Information Payers Payer name Insurance type Covered green party ID Authoriza tion(s) Medicare [facility] [id number] Medicaid [facility] [id number] Social History Type Description Quantity Date Captured [...]
--- OUTSIDE RECORDS SUMMARY | 2024-12-07 18:02 | XMS_ITS | Referral Summary ---
Author Organization [facility] Address [address] [place] [address] Care Team Providers Care Restaurant Server Name Role Phone Stuart Douglas MD Unavailable [phone] Wu Saleem MD Unavailable [phone] Dominique Peck NP Primary Care Provider Encounters Date Type Department Care Team Description 11/30/2024 Telephone [facility] Scheduling [address] [place] [address] Radha Graham PA 11/21/2024 8:30 AM CDT Office Visit [facility] [address] [facility] [address] [place] [address] Jerzy Edwards MD Idiopathic normal pressure hydrocephalus (CMS/HCC) (Primary Dx); Tremor 10/30/2024 9:15 AM CDT Lab [address] [address] 10/23/2024 10:05 AM CDT Lab [address] [address] 10/06/2024 9:30 AM CDT Lab [facility] [address] [facility] [address] [place] [address] Thrombocytopenia, unspecified 10/06/2024 10:00 AM CDT Office Visit [facility] [address] [facility] Medical Office [address] [place] [address] Wu Saleem MD Thrombocytopenia, unspecified (Primary Dx) from Last 3 Months Allergies Active Allergy Reactions Criticality Noted Date [...] 1 tablet (150 mcg total) by mouth body shop manager before breakfast Active furosemide (LASIX) 20 mg [...] Gen Pen Needle 32 gauge x 5/32 needle 1 PEN NEEDLE BY DOES NOT [...] TIMES DAILY 08/22/19 22 Active diaper,brief,adult ,disposable misc as directed 03/30/20 18 Active diabetic supplies, miscellan. misc as directed 01/26/20 19 Active pen needle, diabetic 32 gauge x 3/16 needle as directed Act arleth lancets-blood glucose strips 30 gauge combo pack 4 TIMES A DAY 09/26/19 22 Active polyethylene glycol (MIRALAX) 17 gram packet 12/25/19 20 Active loratadine 10 mg capsule Take 1 tablet by mouth daily Active miscellaneous medical supply misc Power Scooter 12/25/19 18 Active NEBULIZER AND COMPRESSOR MISC 04/14/20 21 Active potassium chloride in LR-D5 (dextrose 5% in Lactated Ringer's with potassium chloride 20 mEq/L) 20 mEq/L infusion daily Active underpads pad as directed 03/30/20 18 Active pregabalin (LYRICA) 50 mg capsule 06/06/20 22 Active empty container (BD Sharps Clock Repairer) [facility] 12/10/19 18 Active miconazole [...] 06/09/2023 Assessment & Plan (06/09/2023 1:41 PM SAFETY PATROL OFFICER): Nasal saline spray (Simply saline, Little Remedies, [place], [place]) 2 second sprays or 2 squeezes into [...] (07/30/2022): Added automatically from request for surgery [id number] Assessment & Plan (08/06/2022 8:36 PM SAFETY PATROL OFFICER): Schedule sigmoidoscopy and treatment of hemorrhoids. Hemorrhoids 07/30/2022 Overview (07/30/2022): Added automatically from request for surgery [id number] Coronary artery disease invo lving quileute coronary artery of quileute heart without angina pectoris 02/25/2022 Coronary artery calcification 02/25/2022 Chronic pain 02/25/2022 Constipation 02/25/2022 Assessment & Plan (08/06/2022 8:43 PM SAFETY PATROL OFFICER): Chronic constipation. Start Linzess 72 Mcg daily. [...] Nasal saline spray (Simply saline, Little Remedies, [place], [place]) 2 second sprays or 2 squeezes into [...] future Assessment & Plan (06/03/2021 2:53 PM SAFETY PATROL OFFICER): Nasal saline spray (Simply saline, Little Remedies, [place], [place]) 2 second sprays or 2 squeezes into [...] medications Assessment & Plan (07/15/2020 1:19 PM SAFETY PATROL OFFICER): Start Nasal saline spray (Simply saline, Little Remedies, [place], [place]) 2 second sprays or 2 squeezes into [...] daily Assessment & Plan (05/21/2020 10:09 AM SAFETY PATROL OFFICER): Nasal saline spray (Simply saline, Little Remedies, [place], [place]) 2 second sprays or 2 squeezes into [...] 05/21/2020 Assessment & Plan (08/09/2024 8:37 AM SAFETY PATROL OFFICER): Finish Doxycycline Follow up as needed Assessment & Plan (06/09/2023 1:40 PM SAFETY PATROL OFFICER): Nasal saline spray (Simply saline, [place] Remedies, [place], [place]) 2 second sprays or 2 squeezes into [...] needed Assessment & Plan (06/30/2022 10:04 AM SAFETY PATROL OFFICER): Nasal saline spray (Simply saline, Little Remedies, [place], [place]) 2 second sprays or 2 squeezes into [...] prescription Assessment & Plan (07/23/2021 12:07 PM SAFETY PATROL OFFICER): Augmentin with a meal twice daily for 10 days, call if no improvement Continue Atrovent 2 sprays into each nostril while looking down over the sink, do not sniff in or blow nose after use for at least 30 minutes 1-2 times daily Assessment & Plan (05/21/2020 8:56 PM SAFETY PATROL OFFICER): Nasal saline spray (Simply saline, Little Remedies, [place], [place]) 2 second sprays or 2 squeezes into [...] on Lantus 36 units nightly, mealtime insulin 20-12-16. She follows with Dr. Garcia. Lantus has [...] (10/19/2018): Added automatically from request for surgery [id number] Bilateral primary osteoarthritis of knee 02/03/2017 02/09/2022 Immunizations Immunization Administration Dates Next Due Heplisav-b [...] 11/05/2020 Tdap 02/27/2017 Tetanus Toxoid, Unspecified 07/12/1999 Social History Tobacco Use Types Packs/Day Years [...] friends, or neighbors? Once a week 12/27/19 How often do you get togethe r with friends or relatives? Once a week 12/26/2020 How often do you attend [facility] or shinto services? 1 to 4 times per year [...] on file Legal Sex Female 12:39 AM SAFETY PATROL OFFICER Gender Identity Not on file Sexual Orientation [...] Body Mass Index 29.43 08/09/2024 8:22 AM SAFETY PATROL OFFICER Plan of Treatment Not on file Medical Devices Implanted Type Area Manager Pool Device Identifier Shelf Expiration Date Model / Serial / Lot Shunt-11/05/2014 Implanted:2014 by Jerzy Redman MD (Quantity not on file) Shunt Right: Brain [employer] X [id number] / 0 / [id number] [employer] [id number] Attune Cementless Rotate Platform Knee 7 Baseplate Tibial - [id number] Implanted:Qty: 1 on 11/14/2018 by Stuart Douglas MD at [facility] Right: Knee [employer] 08/11/2027 [id number] / / [id number] [employer] [id number] Attune Cruciate Retain Cementless Knee Right 5 Component Femoral - [id number] Implanted:Qty: 1 on 11/14/2018 by Stuart Douglas MD at [facility] Right: Knee [employer] 02/09/2028 [id number] / / [id number] [employer] [id number] Attune 5mm Cruciate Retaining Rotate Platform Knee 5 Insert - [id number] Implanted:Qty: 1 on 11/14/2018 by Stuart Douglas MD at [facility] Right: Knee [employer] 08/11/2023 [id number] / / [id number] Procedures Procedure Name Priority Date/Time Associated Diagnosis [...] HEPATITIS C ANTIBODY Routine 07/23/2023 9:40 AM SAFETY PATROL OFFICER Rheumatoid factor positive HEMOGLOBIN A1C Add-On 10/12/2019 [...] of Race in Diagnosing Kidney Disease, JASN 202). The CKD-EPI equation should not be used for patients with unstable renal function and has not been validated in children and those over 70. Current interpretive data was last reviewed 2021. Blood 10/30/2024 9:32 AM CDT 10/30/2024 9:54 AM CDT us Zelda Malone MD LAB BLOOD ORDERABLES Final Resul t DYAN KELLY ([place]) [address] [facility] [place] [address] * (ABNORMAL) Differential, auto (10/30/2024 9:32 AM CDT) Neutrophil abs 3.45 1.50 - 6.50 K/cumm Imm gran abs 0.06 0.00 - 0.10 K/cumm [facility] ([place]) Lymphocyte abs 1.64 0.80 - 3.30 K/cumm [facility] ([place]) Monocyte abs 0.86(H) 0.20 - 0.80 K/cumm [facility] ([place]) Eosinophil abs 0.09 0.00 - 0.50 K/cumm [facility] ([place]) Basophil abs 0.04 0.00 - 0.10 K/cumm [facility] ([place]) Neutrophil pct 56.1 % [facility] ([place]) Comment: Interpretive Data Percent cell count reference ranges are not reported, since discordance with absolute values may lead to misinterpretation of CBC data. Current Interpretive Data was last revised on 2017. Imm gran pct 1.0 % [facility] ([place]) Comment: Interpretive Data Percent cell count reference ranges are not reported, since discordance with absolute values may lead to misinterpretation of CBC data. Current Interpretive Data was last revised on 2017. Lymphocyte pct 26.7 % [facility] ([place]) Comment: Interpretive Data Percent cell count reference ranges are not reported, since discordance with absolute values may lead to misinterpretation of CBC data. Current Interpretive Data was last revised on 2017. Monocyte pct 14.0 % [facility] ([place]) Comment: Interpretive Data Percent cell count reference ranges are not reported, since discordance with absolute values may lead to misinterpretation of CBC data. Current Interpretive Data was last revised on 2017. Eosinophil pct 1.5 % [facility] ([place]) Comment: Interpretive Data Percent cell count reference ranges are not reported, since discordance with absolute values may lead to misinterpretation of CBC data. Current Interpretive Data was last revised on 2017. Basophil pct 0.7 % [facility] ([place]) Comment: Interpretive Data Percent cell count reference ranges are not reported, since discordance with absolute values may lead to misinterpretation of CBC data. Current Interpretive Data was last revised on 2017. Blood 10/30/2024 9:32 AM CDT 10/30/2024 9:54 AM CDT us Zelda Malone MD LAB BLOOD ORDERABLES Final Resul t [facility] ([place]) [address] [facility] [place] [address] * (ABNORMAL) CBC with auto differential (10/30/2024 9:32 AM CDT) WBC 6.14 3.80 - 9.90 K/cumm Hgb 13.4 11.9 - 15.5 g/dL [facility] ([place]) Hct 41.3 35.6 - 45.5 % [facility] ([place]) Plt 118(L) 150 - 400 K/cumm [facility] ([place]) MPV 11.9 9.1 - 12.3 fL [facility] ([place]) RBC 4.27 3.90 - 5.20 M/cumm [facility] ([place]) MCV 96.7(H) 81.3 - 96.4 fL [facility] ([place]) MCH 31.4 27.1 - 33.3 pg [facility] ([place]) MCHC 32.4 32.3 - 35.7 g/dL [facility] ([place]) RDW CV 14.5 11.1 - 14.9 % [facility] ([place]) RDW SD 52.2(H) 35.7 - 48.1 fL [facility] ([place]) NRBC abs 0.00 0.00 - 0.01 K/cumm [facility] ([place]) Blood 10/30/2024 9:32 AM CDT 10/30/2024 9:54 AM CDT us Zelda Malone MD LAB BLOOD ORDERABLES Final Resul t Performing Organization Address City/[facility]/ZIP Co de Phone Number DYAN KELLY ([place]) [address] [facility] Department of [employer] [place] [address] * Valproic acid level, total (10/30/2024 9:32 AM CDT) Pathologist [facility] Valproic Acid 61.4 50.0 - 100.0 mcg/mL Comment: Interpretive Data Therapeutic range: 50-100 mcg/mL Current interpretive data was last revised on 2014 Blood 10/30/2024 9:32 AM CDT 10/30/2024 9:54 AM CDT Zelda Malone MD LAB BLOOD ORDERABLES Final Resul t Performing Organization Address [facility] Co de Phone Number DYAN KELLY ([place]) 1 [facility] of [employer] [place] [address] * (ABNORMAL) Comprehensive metabolic panel (10/30/2024 9:32 AM CDT) Pathologist [facility] Sodium 142 135 - 145 mmol/L Potassium, pl 4.9 3.3 - 4.9 mmol/L [facility] ([place]) Chloride 104 97 - 110 mmol/L [facility] ([place]) CO2 25 22 - 32 mmol/L [facility] ([place]) Anion gap 13 2 - 15 mmol/L [facility] ([place]) BUN 49(H) 6 - 25 mg/dL [facility] ([place]) Creatinine 1.65(H) 0.60 - 1.10 mg/dL [facility] ([place]) Glucose 223(H) 70 - 199 mg/dL [facility] ([place]) Comment: Interpretive Data Fasting glucose [...] Final Resul t [facility] ([place]) [address] [facility] [place] [address] * (ABNORMAL) eGFR (10/23/2024 10:17 AM CDT) [...] ORDERABLES Final Res ult Performing Organization Address City/[facility]/ZIP Co de Phone Number DYAN KELLY ([place]) 1 [facility] [employer] [place] [address] * Protein / creatinine ratio, urine, random (10/23/2024 10:17 AM CDT) Protein, ur, quant 5.7 mg/dL Comment: Interpretive Data No reference range established. Current interpretive data was last revised 2018. Creatinine Ur 54.1 mg/dL [facility] ([place]) Comment: Interpretive Data No reference range established. Current interpretive data was last revised 2018. Protein/creatinin e ratio 105.4 0.0 - 180.0 mg/g CR [facility] ([place]) Urine 10/23/2024 10:1 7 AM CDT 10/23/2024 10:34 AM CDT Uche Phan MD LAB URINE ORDERABLES Final Res ult Performing Organization Address [facility] Co de Phone Number DYAN KELLY ([place]) [address] [facility] [employer] [place] [address] * Vitamin D 25 hydroxy (10/23/2024 10:17 AM CDT) Vitamin D 25-OH 40 30 - 80 ng/mL Blood 10/23/2024 10:1 7 AM CDT 10/23/2024 10:32 AM CDT Uche Phan MD LAB BLOOD ORDERABLES Final Res ult [facility] KE[facility] ([place]) [address] [facility] [employer] [place] [address] * (ABNORMAL) PTH (10/23/2024 10:17 AM CDT) PTH 72(H) 15 - 65 pg/mL Blood 10/23/2024 10:1 7 AM CDT 10/23/2024 10:32 AM CDT us Uche Phan MD LAB BLOOD ORDERABLES Final Res ult [facility] ([place]) [address] [facility] Department [place] [address] * (ABNORMAL) Renal function panel (10/23/2024 10:17 AM CDT) Sodium 143 135 - 145 mmol/L Potassium, pl 5.1(H) 3.3 - 4.9 mmol/L [facility] ([place]) Chloride 106 97 - 110 mmol/L [facility] ([place]) CO2 22 22 - 32 mmol/L [facility] ([place]) Anion gap 15 2 - 15 mmol/L [facility] ([place]) BUN 45(H) 6 - 25 mg/dL [facility] ([place]) Creatinine 1.60(H) 0.60 - 1.10 mg/dL [facility] ([place]) Glucose 151 70 - 199 mg/dL [facility] ([place]) [...] 2022. Calcium 9.6 8.5 - 10.3 mg/dL [facility] ([place]) Phosphorus, pl 4.9(H) 2.3 - 4.5 mg/dL [facility] ([place]) Albumin 4.1 3.5 - 5.0 g/dL [facility] ([place]) Blood 10/23/2024 10:1 7 AM CDT 10/23/2024 10:32 AM CDT us Uche Phan MD LAB BLOOD ORDERABLES Final Res ult [facility] ([place]) [address] [facility] Department [place] [address] * Differential, auto (10/06/2024 9:15 AM CDT) Neutrophil abs 4.2 1.5 - 6.5 K/cumm Comment:Testing performed by : [facility] [address], Medical Office [facility] [address], [place] [address] Imm gran abs 0.0 0.0 - 0.1 K/cumm [facility] ([place]) Comment:Testing performed by : [facility] [address], Medical Office [facility] [address], [place] [address] Lymphocyte abs 1.5 0.8 - 3.3 K/cumm [facility] ([place]) Comment:Testing performed by : [facility] [address], Medical Office [facility] [address], [place] [address] Monocyte abs 0.7 0.2 - 0.8 K/cumm [facility] ([place]) Comment:Testing performed by : [facility] [address], Medical Office [facility] [address], [place] [address] Eosinophil abs 0.1 0.0 - 0.5 K/cumm [facility] ([place]) Comment:Testing performed by : [facility] [address], Medical Office [facility] [address], [place] [address] Basophil abs 0.0 0.0 - 0.1 K/cumm [facility] ([place]) Comment:Testing performed by : [facility] [address], Medical Office [facility] [address], [place] [address] Neutrophil pct 63.6 % [facility] ([place]) Comment: Interpretive Data Percent cell count reference ranges are not reported, since discordance with absolute values may lead to misinterpretation of CBC data. Current Interpretive Data was last revised on 2022. Testing performed by: [facility] [address], Medical Office [address], [place] [address] Imm gran pct 0.6 % [facility] ([place]) Comment: Interpretive Data Percent cell count reference ranges are not reported, since discordance with absolute values may lead to misinterpretation of CBC data. Current Interpretive Data was last revised on 2022. Testing performed by: [facility] [address], Medical Office [facility] [address], [place] [address] Lymphocyte pct 22.8 % [facility] ([place]) Comment: Interpretive Data Percent cell count reference ranges are not reported, since discordance with absolute values may lead to misinterpretation of CBC data. Current Interpretive Data was last revised on 2022. Testing performed by: [facility] [address], Medical Office [facility] [address], [place] [address] Monocyte pct 10.9 % [facility] ([place]) Comment: Interpretive Data Percent cell count reference ranges are not reported, since discordance with absolute values may lead to misinterpretation of CBC data. Current Interpretive Data was last revised on 2022. Testing performed by: [facility] [address], Medical Office [facility] [address], [place] [address] Eosinophil pct 1.5 % [facility] ([place]) Comment: Interpretive Data Percent cell count reference ranges are not reported, since discordance with absolute values may lead to misinterpretation of CBC data. Current Interpretive Data was last revised on 2022. Testing performed by: [facility] [address], Medical Office [address], [place] [address] Basophil pct 0.6 % [facility] ([place]) Comment: Interpretive Data Percent cell count reference ranges are not reported, since discordance with absolute values may lead to misinterpretation of CBC data. Current Interpretive Data was last revised on 2022. Testing performed by: [facility] [address], Medical Office [facility] [address], [place] [address] Blood 10/06/2024 9:15 AM CDT 10/06/2024 9:23 AM CDT Wu Saleem MD LAB BLOOD ORDERABLES Final Re sult [facility] ([place]) [address] [facility] Department [place] [address] * (ABNORMAL) CBC with auto differential (10/06/2024 9:15 AM CDT) WBC 6.5 3.8 - 9.9 K/cumm Comment:Testing performed by : [facility] [address], Medical Office [address], [place] [address] Hgb 13.2 11.9 - 15.5 g/dL [facility] ([place]) Comment:Testing performed by : [facility] [address], Medical Office [address], [place] [address] Hct 41.9 35.6 - 45.5 % [facility] ([place]) Comment:Testing performed by : [facility] [address], Medical Office [address], [place] [address] Plt 126(L) 150 - 400 K/cumm [facility] ([place]) Comment:Testing performed by : [facility] [address], Medical Office [address], [place] [address] MPV 11.3 9.1 - 12.3 fL [facility] ([place]) Comment:Testing performed by : [facility] [address], Medical Office [address], [place] [address] RBC 4.31 3.90 - 5.20 M/cumm [facility] ([place]) Comment:Testing performed by : [facility] [address], Medical Office [address], [place] [address] MCV 97.2(H) 81.3 - 96.4 fL [facility] ([place]) Comment:Testing performed by : [facility] [address], Medical Office [address], [place] [address] MCH 30.6 27.1 - 33.3 pg [facility] ([place]) Comment:Testing performed by : [facility] [address], Medical Office [facility] [address], [place] [address] MCHC 31.5(L) 32.3 - 35.7 g/dL [facility] KE[facility] ([place]) Comment:Testing performed by : [facility] [address], Medical Office [facility] [address], [place] [address] RDW CV 14.6 11.1 - 14.9 % [facility] KELLY ([place]) Comment:Testing performed by : [facility] [address], Medical Office [facility] [address], [place] [address] RDW SD 53.2(H) 35.7 - 48.1 fL [facility] KELLY ([place]) Comment:Testing performed by : [facility] [address], Medical Office [facility] [address], [place] [address] NRBC abs Not Measured 0.00 - 0.01 K/cumm DYAN KELLY ([place]) Comment:Testing performed by : [facility] [address], Medical Office [facility] [address], [place] [address] Blood 10/06/2024 9:15 AM CDT 10/06/2024 9:23 AM CDT Wu Saleem MD LAB BLOOD ORDERABLES Final Re sult [facility] KELLY ([place]) [address] [facility] [place] [address] * (ABNORMAL) eGFR (10/06/2024 9:00 AM CDT) [...] was last reviewed 2021. Testing performed by: [place], [address] Blood 10/06/2024 9:00 AM CDT 10/06/2024 9:55 AM CDT us Wu Saleem MD LAB BLOOD ORDERABLES Final Re sult [facility] ROBIN ([place]) [address] [facility] [place] [address] * (ABNORMAL) Comprehensive metabolic panel (10/06/2024 9:00 AM CDT) Sodium 136 135 - 145 mmol/L Comment:Testing performed by : [place], [address] Potassium, pl 5.3(H) 3.3 - 4.9 mmol/L [facility] ([place]) Comment:Testing performed by : [facility], [place], [address] Chloride 101 97 - 110 mmol/L [facility] ([place]) Comment:Testing performed by : [place], [address] CO2 24 22 - 32 mmol/L [facility] ([place]) Comment:Testing performed by : [facility], [place], [address] Anion gap 11 2 - 15 mmol/L [facility] ([place]) Comment:Testing performed by : [facility], [place], [address] BUN 48(H) 6 - 25 mg/dL [facility] ([place]) Comment:Testing performed by : [facility], [place], [address] Creatinine 1.67(H) 0.60 - 1.10 mg/dL [facility] ([place]) Comment:Testing performed by : [facility], [place], [address] Glucose 380(H) 70 - 199 mg/dL [facility] ([place]) Comment: Interpretive Data Fasting glucose >/= 126 [...] was last revised 2022. Testing performed by: [facility], [place], [address] Calcium 9.4 8.5 - 10.3 mg/dL [facility] ([place]) Comment:Testing performed by : [facility], [place], [address] Bilirubin, total 0.3 0.1 - 1.2 mg/dL [facility] ([place]) Comment:Testing performed by : [facility], [place], [address] Protein, pl 6.4(L) 6.5 - 8.5 g/dL [facility] ([place]) Comment:Testing performed by : [facility], [place], [address] Albumin 4.1 3.5 - 5.0 g/dL [facility] ([place]) Comment:Testing performed by : [facility], [place], [address] Alk phos 71 40 - 130 Units/L [facility] ([place]) Comment:Testing performed by : [facility], [place], [address] ALT 19 7 - 45 Units/L [facility] ([place]) Comment:Testing performed by : [facility], [place], [address] AST 18 10 - 45 Units/L [facility] ([place]) Comment:Testing performed by : [facility], [place], [address] Blood 10/06/2024 9:00 AM CDT 10/06/2024 9:55 AM CDT us Wu Saleem MD LAB BLOOD ORDERABLES Final Re sult DYAN KELLY [place] 1 [facility] [place] [address] * Screening Mammogram Bilateral W Raul (12/10/2023 [...] either breast on mammogram. Nona Conklin MD IMG MAMMO PROCEDURES Final Re sult * Dexa Axial Skeleton Bone Density 1 or 2 Site (11/03/2023 1:33 PM CDT) Anatomical Region Laterality Modality Body N/A Other 11/03/2023 8:55 PM CDT Narrative 11/03/2023 8:56 PM CDT EXAM DESCRIPTION: DEXA AXIAL SKELETON BONE DENSITY 1 OR MORE SITES REASON FOR STUDY: 63 y/o year old F with given history of: Osteoporosis Screening. Manager Pool/Model: [employer] SL (S/N [id number]) CLINICAL INFORMATION: Current height: 64 inches Maximum [...] Jerzy Velazquez M.D. MF: BREANNA Report ID: [id number] Reading Location: [id number] Procedure Note Jerzy Velazquez MD - 11/03/2023 EXAM DESCRIPTION: DEXA AXIAL SKELETON BONE DENSITY 1 OR MORE SITES REASON FOR STUDY: 63 y/o year old F with given history of:Osteoporosis Screening. Manager Pool/Model: [employer] SL (S/N [address]) CLINICAL INFORMATION: Current height: 64 inches Maximum [...] see below follow up recommendations. [facility] of low bone mineral density may [...] Jerzy Velazquez M.D. MF: BREANNA Report ID: [id number] Reading Location: [place] [address] Sharon Moya MD IMG DXA PROCEDURES Final Resu lt * Hepatitis C antibody Blood (07/23/2023 9:40 AM SAFETY PATROL OFFICER) Hep C Ab Nonreactive Nonreactive [facility] Comment:Antibodies to HCV no t detected. Does NOT exclude the possibility of recent exposure to HCV. Current interpretive data was last revised on 22 Blood 07/23/2023 9:40 AM SAFETY PATROL OFFICER 07/23/2023 10:02 AM SAFETY PATROL OFFICER Amadeo Gamez MD LAB MICROBIOLOGY - GENERA L ORDERABLES Final Result [facility] Department [place] [address] * (ABNORMAL) Hemoglobin A1c (10/12/2019 6:42 AM [...] and children were not included. (Diabetes Care 31:6190-4739, 2008). The eAG is not equivalent to a fasting glucose. Blood specimen (specimen) 10/12/2019 6:42 AM CDT 10/13/2019 11:17 AM CDT us Kwaku Menezes MD LAB BLOOD ORDERABLES Final Resul t DYAN KELLY (LOKI) 1 [facility] [place] [address] * (ABNORMAL) Lipid panel (11/20/2018 12:47 AM [...] on 2018. HDL 21(L) >=40 mg/dL DYAN BRIONES H (LOKI) Comment: Interpretive Data Ages < or [...] LDL, calculated 48 <=129 mg/dL DYAN KELLY (GENESEE) Comment: Interpretive Data Ages < or = [...] on 2018. Non-HDL Cholesterol 77 mg/dL DYAN EKLLY (LOKI) Comment: Interpretive Data Ages < or [...] BLOOD ORDERABLES Final R esult DYAN KELLY (GENESEE) 1 [facility] Department of [employer] [address] from Last 3 Months or Most Recently Relevant to Health Maintenance Insurance [address] [place] [address] [employer] [facility] MEDICARE ADVANTAGE [address] [place] [address] [facility] MEDICARE ADVANTAGE [address] [place], [place] [address] [place], [place] [address] [facility] MEDICARE ADVANTAGE IDPA Advance Directives For more information, please contact: [phone] * Full Code (Latest Code Status on [...] 11:50 AM 11/24/2018 10:15 PM Care Teams Restaurant Server Relationship Specialty Start Date End Date Dominique Peck NP [address] [place] [address] [address] [facility] [address] [place] [address] PCP - General Nurse Practitioner 11/25/24 Stuart Douglas MD Surgeon Orthopedic Surgery 11/24/18 Wu Saleem MD [address] [place] [address] [address] [place] [address] Insurance Verification Representative Hematology and Oncology 08/22/24
--- OUTSIDE RECORDS SUMMARY | 2024-12-07 18:02 | XMS_ITS | Continuity of Care Document ---
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 Insulin dosing requires individualization. 0.00 - Active inject 10 uni ts SC TID before meals Lantus Solostar 100 unit/mL (3 mL) subcutaneous insulin pen inject by subcutaneous route as per insulin protocol 0.00 - Active inject 30 units SC in AM Synthroid 125 mcg tablet take 1 tablet by oral route every day 125 MCG - Active Ultram 50 mg tablet take 1 tablet by oral route 3 times every day as needed 50 MG - Active avoid drivin g or operate machine Zyrtec 10 mg tablet take 1 tablet by oral route every day 10 MG - Active pravastatin 20 mg tablet take 1 Tablet by oral route every day 20 MG - Active Contour Next Strips QID - Active e11.9 Fosamax 70 mg tablet take 1 tablet by oral route every week in the morning, at least 30 min before first food, beverage, or medication of day 70 MG - Active Protonix 20 mg tablet,delayed release take 1 Tablet by oral route every day 20 MG - Active Vitamin D2 50,000 unit capsule take 1 capsule by oral route every week - Active Procedures Procedure Date OFFICE/OUTPATIENT VISIT, EST OFFICE/OUTPATIENT VISIT, EST OFFICE/OUTPATIENT VISIT, EST OFFICE/OUTPATIENT VISIT, NEW Advance Directives Directive Yes / No Effective Date File Name No Information Encounters Encounter Description Practice Location Reason(s) For Visit Diagnoses Date Provider Providers Copied on Encounter [facility], [address], [place], [place], [id number], [place] tel:[phone] [facility] No Information Irving Oneil. [address], [place], [place], [address] , [place]. tel:[phone] [facility], [address], [place], [place], [address], [place] [phone] [facility] No Information 7 Irving Oneil. [address], [place], [place], [address] , [place]. tel:[phone] OFFICE/OUTPA TIENT VISIT, [facility], [address], [place], [place], [address], [place] tel:[phone] [facility] osteoporosis1 (chief complaint)HLP (chief complaint)kne e pian1 (chief complaint)DM (chief complaint)all ergy1 (chief complaint) HyperlipidemiaOs teoporosisType 2 diabetes mellitus without complicationsChr onic pain syndrome Irving Oneil. [address], [place], [place], [address] , [place]. tel:[phone] Referring Provider: Giovani Manning [address], [place], [place], [id number]. tel:[phone] OFFICE/OUTPA TIENT VISIT, [facility], [address], [place], [place], [address], [place] tel:[phone] [facility] DM (chief complaint)HLP (chief complaint)ramon al funciton (chief complaint) HyperlipidemiaTy pe 2 diabetes mellitus without complicationsRen al disease Irving Duran [address], [place], [place], [address] , [place]. tel:[phone] Referring Provider: Giovani [address], [place], [place], [address]. tel:[phone] OFFICE/OUTPA TIENT VISIT, [facility], [address], [place], [place], [address], [place] tel:[phone] [facility] GERD1 (chief complaint)ost eoporosis1 (chief complaint)kne e pain1 (chief complaint)hyp othyroidism (chief complaint) HypothyroidismGE RD w/o esophagitisOsteo porosisChronic pain syndrome Irving Duran [address], [place], [place], [address] , [place]. tel:[phone] Referring Provider: Thad [facility]atoro [address] [facility] [address] [place], [place], [address]. tel:[phone] [facility], [facility] [address] [place], [address], tel:[phone] [facility] No Information Irving Duran [address], [place], [place], [address] , [place]. tel:[phone] OFFICE/OUTPA TIENT VISIT, [facility], [address], [place], [place], [address], [place] tel:[phone] [facility] hydrocephlus (chief complaint)DM1 (chief complaint)hyp othyroidism1 (chief complaint)ost eoporosis1 (chief complaint)chr onic pain1 (chief complaint) Type 2 diabetes mellitus without complicationsGER D w/o esophagitisHypot hyroidismOsteopo rosis Irving Duran [address], [address], [place], [place], [address] , [place]. tel:[phone] Referring Provider: Giovani Manning [facility] A, [place], [place], [address]. tel:[phone] Family History Family Member Type Diagnosis Age At Onset Brother Problem (finding) Diabetes mellitus type 2 Father Problem (finding) Unknown Mother Problem (finding) unknwon Payers Payer name Insurance type Covered constitution party ID Authoriza tion(s) No Information Social History Type Description Quantity Date Captured Comments Alcohol Use Details Unknown Caffeine Use Details Unknown Tobacco Use Status No Information Smoking Status No Information Sex Female Chief Complaint And Reason For Visit No Information Plan Of Treatment Date Type Action Status Referral Ordered: KNEE XRAY TWO-VIEW Bilateral ordered Referral Ordered: MAMMOGRAM, SCREENING ordered Referral Ordered: Orthopedic Surgery (related to Chronic pain syndrome) ordered Referral Ordered: Gastroenterology (related to GERD w/o esophagitis) ordered Referral Ordered: US THYROID ordered Referral [...] produce any other information. Pt was in [facility] and she was released recenlty. Pt was in [facility] for two years. DM1 Pt has DM. [...] Instructions Date Instruction Additional Infor liz Prescribed Activity and Exercise Education Related to [...] Diet Related to Dietary Surveillance and Counseling Assessments Type Assessment Date No Information
[2024-12-07 18:08] VITALS: BP 182/61; PULSE 68; RESP 20; TEMP 36.7; O2SAT 100
--- NOTE | 2024-12-07 18:22 | ED_ITS ---
HPI - URI/Sore Throat General Chief Complaint: Upper Respiratory Infection Stated Complaint: sinus congestion Time Seen by Provider: 12/07/24 18:22 Source: patient and RN notes reviewed Mode of arrival: ambulatory Limitations: no limitations History of Present Illness HPI Narrative: 64-year-old female presented for complaint of nasal congestion and sinus pressure, cough, and bilateral ear pressure. Onset 1 week. Taking Claritin without improvement. Denies shortness of breath, wheezing nausea vomiting, fevers or chills. MD elicited complaint: cough Related Data Home Medications ?Medication ?Instructions ?Recorded ?Confirmed ?Last Taken ?Type ascorbate calcium (vitamin C) 500 500 mg PO DAILY 01/02/22 10/26/24 Unknown History mg tablet calcium 600 mg (as 1 cap PO DIRECTED 01/02/22 10/26/24 Unknown History carbonate)-vitamin D3 12.5 mcg (500 unit) capsule (Calcium with Vit D3) hydrochlorothiazide 25 mg tablet 25 mg PO BID 01/02/22 10/26/24 Unknown History hydroxyzine HCl 25 mg tablet 25 mg PO BID PRN Itching 01/02/22 10/26/24 Unknown History lisinopril 20 mg tablet 20 mg PO BID 01/02/22 10/26/24 Unknown History linaclotide 72 mcg capsule 72 mcg PO QAM 08/10/22 10/26/24 Unknown History (Linzess) atorvastatin 20 mg tablet 20 mg PO DAILY 05/31/23 10/26/24 Unknown History citalopram 20 mg tablet 20 mg PO DAILY 05/31/23 10/26/24 Unknown History trimethoprim 100 mg tablet 100 mg PO DAILY 05/31/23 10/26/24 Unknown History alendronate 70 mg tablet 70 mg PO DAILY 06/22/23 10/26/24 Unknown History amlodipine 5 mg tablet 5 mg PO DAILY 08/03/23 10/26/24 Unknown History buspirone 15 mg tablet 15 mg PO DAILY 08/03/23 10/26/24 Unknown History divalproex 500 mg tablet,delayed 500 mg PO QID 08/03/23 10/26/24 Unknown History release famotidine 40 mg tablet 40 mg PO DAILY 08/03/23 10/26/24 Unknown History fluticasone fur. 200 mcg-umeclid 1 inh inhalation DAILY 08/03/23 10/26/24 Unknown History 62.5 mcg-vilant 25 mcg inhalat.powder (Trelegy Ellipta) fluticasone propionate 50 1 spray intranasal BID 08/03/23 10/26/24 Unknown Hi story mcg/actuation nasal spray,suspension insulin glargine 100 unit/mL (3 16 unit subcut QPM 08/03/23 10/26/24 Unknown History mL) subcutaneous pen (Lantus Solostar U-100 Insulin) insulin lispro 100 unit/mL 28 unit subcut TID 08/03/23 10/26/24 Unknown History subcutaneous pen (Humalog KwikPen (U-100) Insulin) ipratropium bromide 21 mcg (0.03 2 spray intranasal DAILY 08/03/23 10/26/24 Unknown History %) nasal spray levothyroxine 150 mcg tablet 150 mcg PO DAILY 08/03/23 10/26/24 Unknown History risperidone 0.5 mg tablet 0.5 mg PO DAILY 08/03/23 10/26/24 Unknown History tamsulosin 0.4 mg capsule 0.4 mg PO BID 08/03/23 10/26/24 Unknown History semaglutide 0.25 mg or 0.5 mg (2 0.25 mg subcut WEEKLY 04/03/24 10/26/24 Unknown History mg/3 mL) subcutaneous pen injector (Ozempic) estradiol 0.01% (0.1 mg/gram) vaginal 12/07/24 Unknown History vaginal cream primidone 50 mg tablet mg 12/07/24 Unknown History terconazole 0.4 % vaginal cream vaginal 12/07/24 Unknown History Allergies Allergy/AdvReac Type Severity Reaction Status Date / Time carbamazepine Allergy Mild Unknown Verified 12/07/24 18:09 meperidine Allergy Mild Unknown Verified 12/07/24 18:09 prednisone Allergy Mild Unknown Verified 12/07/24 18:09 Review of Systems Review of Systems: per HPI [facility] Past Medical History Medical History Sleep apnea Seizures Bipolar 1 disorder Chronic kidney disease, stage IV (severe) Depression Anxiety COPD (chronic obstructive pulmonary disease) Brain damage Hypothyroidism Hypertension Diabetes Brain ventricular shunt displacement Surgical History Surgical History History of brain shunt History of right knee joint replacement History of appendectomy S/P cholecystectomy H/O: hysterectomy 1991 Family History Family History Father Alcoholism Asthma Diabetes mellitus Hypertension Social History Social History Smoking status: Former smoker Tobacco type: cigarettes Alcohol intake: never Substance use: never Do You Feel Safe in your Home?: Yes Lack of Transportation: No Lack of Food: Sometimes True Current Housing: I Have Housing Concerned About Future Housing: No Difficulty Paying Gas/Electric Bills: YES Difficulty Paying for Meds: No Currently Unemployed: No Education: High School Diploma/GED Difficulty w/ Childcare or Family Care: No Gender identity (if verbalized by the patient): Female Spiritual care concerns: No Exam Narrative: GENERAL: well-appearing, nontoxic no acute distress. EYES: conjunctivae clear ENT: Mucous membranes moist. Nasal congestion and drainage noted. TM pearly kruger with dull light reflex bilaterally; no tragal tenderness. Oropharynx not erythematous without lesions or exudate, no drooling, no hoarseness, no trismus, uvula midline. No tripod positioning, muffled voice, soft palate or pharyngeal wall bulging NECK: Supple. No lymphadenopathy CHEST: Clear to auscultation, breath sounds equal. No wheezing, rhonchi, rales, or stridor. No respiratory distress, speaks in full sentences. HEART: Regular rate and rhythm. No murmur heard. SKIN: Warm, dry, no rash. NEURO: Alert and oriented x3. PSYCH: Normal mood and affect Course Course Emergency Course: Patient is aware of diagnosis, understands and agrees to treatment plan. Anticipatory guidance given. Patient agrees to follow-up as directed and is aware of reasons to seek care at the emergency department. Portions of this record may have been created with voice recognition software Level of Care: Express Care Visit Vital Signs Vital signs: Vital Signs Temperature 98.0 F 12/07/24 18:08 Pulse Rate 68 12/07/24 18:08 Respiratory Rate 20 12/07/24 18:08 Blood Pressure 182/61 H 12/07/24 18:08 Pulse Oximetry 100 12/07/24 18:08 Oxygen Delivery Room Air 12/07/24 18:08 Temperature 98.0 F 12/07/24 18:08 Pulse Rate 68 12/07/24 18:08 Respiratory Rate 20 12/07/24 18:08 Blood Pressure 182/61 H 12/07/24 18:08 Pulse Oximetry 100 12/07/24 18:08 Oxygen Delivery Room Air 12/07/24 18:08 reviewed MDM - URI/Sore Throat MDM Narrative Medical decision making narrative: Discussed physical exam findings. Advised supportive measures and signs/symptoms to go to the ER. Pt is appropriate for outpt treatment and f/u. Differential Diagnosis Differential diagnosis: Likely upper respiratory infection, sinusitis and viral infection Discharge Plan Discharge Clinical Impression: Sinusitis Patient Disposition: Home Condition: Stable Instructions: Antibiotic Form, Rhinosinusitis (ED) Additional Instructions: take antibiotic as directed Recommend Flonase spray and Zyrtec (or Claritin/Michelle) over the counter Cough syrup may cause drowsiness; avoid driving or take it at night time. Tylenol 1000mg every 8 hours as needed for pain Symptomatic treatment includes: rest, fluids, and increase humidity of the air at home. Follow up with your primary care provider in 1 week. Go to the ER for worsening symptoms or concerns. Patient Language: Kazakh Prescriptions: New amoxicillin-pot clavulanate 875-125 mg tablet 1 tablet PO Q12H 7 Days Qty: 14 0RF No Action atorvastatin 20 mg tablet 20 mg PO DAILY trimethoprim 100 mg tablet 100 mg PO DAILY citalopram 20 mg tablet 20 mg PO DAILY alendronate 70 mg tablet 70 mg PO DAILY terconazole 0.4 % cream VAGINAL primidone 50 mg tablet estradiol 0.01 % (0.1 mg/gram) cream VAGINAL ipratropium bromide 21 mcg (0.03 %) spray,non-aerosol 2 spray INTRANASAL DAILY famotidine 40 mg tablet 40 mg PO DAILY amlodipine 5 mg tablet 5 mg PO DAILY divalproex 500 mg tablet,delayed release (DR/EC) 500 mg PO QID tamsulosin 0.4 mg capsule 0.4 mg PO BID levothyroxine 150 mcg tablet 150 mcg PO DAILY fluticasone propionate 50 mcg/actuation spray,suspension 1 spray INTRANASAL BID risperidone 0.5 mg tablet 0.5 mg PO DAILY buspirone 15 mg tablet 15 mg PO DAILY insulin glargine [Lantus Solostar U-100 Insulin] 100 unit/mL (3 mL) insulin pen 16 unit SUBCUT QPM insulin lispro [Humalog KwikPen Insulin] 100 unit/mL insulin pen 28 unit SUBCUT TID Trelegy Ellipta 200-62.5-25 mcg Blister With Device 1 inh INHALATION DAILY Ozempic 0.25 mg or 0.5 mg (2 mg/3 mL) pen injector 0.25 mg SUBCUT WEEKLY hydrochlorothiazide 25 mg tablet 25 mg PO BID lisinopril 20 mg tablet 20 mg PO BID hydroxyzine HCl 25 mg tablet 25 mg PO BID PRN (Reason: Itching) calcium carbonate-vitamin D3 [Calcium 600 with Vitamin D3] 600 mg-12.5 mcg (500 unit) capsule 1 cap PO DIRECTED ascorbate calcium (vitamin C) 500 mg tablet 500 mg PO DAILY Linzess 72 mcg capsule 72 mcg PO QAM estradiol [Yuvafem] 10 mcg tablet 10 mcg vaginal 2XW Qty: 24 3RF furosemide 40 mg tablet 40 mg PO BID Qty: 60 1RF Follow-up/Referrals: Dominique Peck RN [Primary Care Provider] - Time of Disposition: 18:27
== END 2024-12-07 18:45 | disposition home or self-care (01) ==
PROVIDERS: Emergency Provider Nurse Practitioner Family; PCP Nurse Practitioner Family
DX: J32.9 Chronic sinusitis, unspecified (principal); Z87.891 Personal history of nicotine dependence; I12.0 Hypertensive chronic kidney disease with stage 5 chronic kidney disease or end stage renal disease; E11.22 Type 2 diabetes mellitus with diabetic chronic kidney disease; N18.5 Chronic kidney disease, stage 5; Z79.4 Long term (current) use of insulin; Z79.85 Long-term (current) use of injectable non-insulin antidiabetic drugs; G40.909 Epilepsy, unspecified, not intractable, without status epilepticus; E03.9 Hypothyroidism, unspecified; J44.9 Chronic obstructive pulmonary disease, unspecified; F41.9 Anxiety disorder, unspecified; F32.A Depression, unspecified; Z96.651 Presence of right artificial knee joint; Z98.2 Presence of cerebrospinal fluid drainage device
CPT/HCPCS: 99213; G0463

== ENCOUNTER 2024-12-19 15:35 | Emergency (ER) | payer MEDICARE, MEDICAID, SELFPAY ==
[2024-12-19 15:43] VITALS: BP 141/61; PULSE 81; RESP 20; TEMP 36.6; O2SAT 100
--- NOTE | 2024-12-19 15:47 | ED_ITS ---
HPI - URI/Sore Throat General Chief Complaint: Upper Respiratory Infection Stated Complaint: sinus trouble Source: patient and RN notes reviewed Mode of arrival: ambulatory Limitations: no limitations History of Present Illness HPI Narrative: 64 y/o female presented for c/o nasal congestion, cough. Onset 2 weeks. Pt completed a course of Augmentin for the same 4 days ago. Says her symptoms worsened, now has nausea and fatigue. Denies sob, wheezing, n/v/d/f/c. Taking Claritin. Started Afrin last night. MD elicited complaint: cough Related Data Home Medications ?Medication ?Instructions ?Recorded ?Confirmed ?Last Taken ?Type ascorbate calcium (vitamin C) 500 500 mg PO DAILY 01/02/22 10/26/24 Unknown History mg tablet calcium 600 mg (as 1 cap PO DIRECTED 01/02/22 10/26/24 Unknown History carbonate)-vitamin D3 12.5 mcg (500 unit) capsule (Calcium with Vit D3) hydrochlorothiazide 25 mg tablet 25 mg PO BID 01/02/22 10/26/24 Unknown History hydroxyzine HCl 25 mg tablet 25 mg PO BID PRN Itching 01/02/22 10/26/24 Unknown History lisinopril 20 mg tablet 20 mg PO BID 01/02/22 10/26/24 Unknown History linaclotide 72 mcg capsule 72 mcg PO QAM 08/10/22 10/26/24 Unknown History (Linzess) atorvastatin 20 mg tablet 20 mg PO DAILY 05/31/23 10/26/24 Unknown History citalopram 20 mg tablet 20 mg PO DAILY 05/31/23 10/26/24 Unknown History trimethoprim 100 mg tablet 100 mg PO DAILY 05/31/23 10/26/24 Unknown History alendronate 70 mg tablet 70 mg PO DAILY 06/22/23 10/26/24 Unknown History amlodipine 5 mg tablet 5 mg PO DAILY 08/03/23 10/26/24 Unknown History buspirone 15 mg tablet 15 mg PO DAILY 08/03/23 10/26/24 Unknown History divalproex 500 mg tablet,delayed 500 mg PO QID 08/03/23 10/26/24 Unknown History release famotidine 40 mg tablet 40 mg PO DAILY 08/03/23 10/26/24 Unknown History fluticasone fur. 200 mcg-umeclid 1 inh inhalation DAILY 08/03/23 10/26/24 Unknown History 62.5 mcg-vilant 25 mcg inhalat.powder (Trelegy Ellipta) fluticasone propionate 50 1 spray intranasal BID 08/03/23 10/26/24 Unknown History mcg/actuation nasal spray,suspension insulin glargine 100 unit/mL (3 16 unit subcut QPM 08/03/23 10/26/24 Unknown History mL) subcutaneous pen (Lantus Solostar U-100 Insulin) insulin lispro 100 unit/mL 28 unit subcut TID 08/03/23 10/26/24 Unknown History subcutaneous pen (Humalog KwikPen (U-100) Insulin) ipratropium bromide 21 mcg (0.03 2 spray intranasal DAILY 08/03/23 10/26/24 Unknown History %) nasal spray levothyroxine 150 mcg tablet 150 mcg PO DAILY 08/03/23 10/26/24 Unknown History risperidone 0.5 mg tablet 0.5 mg PO DAILY 08/03/23 10/26/24 Unknown History tamsulosin 0.4 mg capsule 0.4 mg PO BID 08/03/23 10/26/24 Unknown History semaglutide 0.25 mg or 0.5 mg (2 0.25 mg subcut WEEKLY 04/03/24 10/26/24 Unknown History mg/3 mL) subcutaneous pen injector (Ozempic) estradiol 0.01% (0.1 mg/gram) vaginal 12/07/24 Unknown History vaginal cream primidone 50 mg tablet mg 12/07/24 Unknown History terconazole 0.4 % vaginal cream vaginal 12/07/24 Unknown History Allergies Allergy/AdvReac Type Severity Reaction Status Date / Time carbamazepine Allergy Mild Unknown Verified 12/19/24 15:47 meperidine Allergy Mild Unknown Verified 12/19/24 15:47 prednisone Allergy Mild Unknown Verified 12/19/24 15:47 Review of Systems Review of Systems: per HPI [facility] Past Medical History Medical History Sleep apnea Seizures Bipolar 1 disorder Chronic kidney disease, stage IV (severe) Depression Anxiety COPD (chronic obstructive pulmonary disease) Brain damage Hypothyroidism Hypertension Diabetes Brain ventricular shunt displacement Surgical History Surgical History History of brain shunt History of right knee joint replacement History of appendectomy S/P cholecystectomy H/O: hysterectomy 1991 Family History Family History Father Alcoholism Asthma Diabetes mellitus Hypertension Social History Social History Smoking status: Former smoker Tobacco type: cigarettes Alcohol intake: never Substance use: never Do You Feel Safe in your Home?: Yes Lack of Transportation: No Lack of Food: Sometimes True Current Housing: I Have Housing Concerned About Future Housing: No Difficulty Paying Gas/Electric Bills: YES Difficulty Paying for Meds: No Currently Unemployed: No Education: High School Diploma/GED Difficulty w/ Childcare or Family Care: No Gender identity (if verbalized by the patient): Female Spiritual care concerns: No Exam Narrative: GENERAL: mildly Ill-appearing EYES: conjunctivae clear ENT: Mucous membranes moist. TM pearly kruger with dull light reflex bilaterally; no tragal tenderness. Oropharynx not erythematous without lesions or exudate, no drooling, no hoarseness, no trismus, uvula midline. No tripod positioning, muffled voice, soft palate or pharyngeal wall bulging NECK: Supple. No lymphadenopathy CHEST: Clear to auscultation, breath sounds equal. No wheezing, rhonchi, rales, or stridor. No respiratory distress, speaks in full sentences. HEART: Regular rate and rhythm. SKIN: Warm, dry, no rash. NEURO: Alert and oriented x3. PSYCH: Normal mood and affect Course Course Emergency Course: Patient is aware of diagnosis, understands and agrees to treatment plan. Anticipatory guidance given. Patient agrees to follow-up as directed and is aware of reasons to seek care at the emergency department. Portions of this record may have been created with voice recognition software Level of Care: Express Care Visit Vital Signs Vital signs: reviewed MDM - URI/Sore Throat MDM Narrative Medical decision making narrative: Discussed physical exam findings. Advised supportive measures and signs/symptoms to go to the ER. Pt states she cannot wait until she is seen by pcp in 3 days to have treatment. Advised likelihood of GI effects. Pt is appropriate for outpt treatment and f/u. Differential Diagnosis Differential diagnosis: Likely upper respiratory infection, sinusitis and viral infection Discharge Plan Discharge Clinical Impression: Upper respiratory infection Patient Disposition: Home Condition: Stable Instructions: Antibiotic Form, Upper Respiratory Infection (ED) Additional Instructions: Take antibiotic as directed Take with food and with a probiotic since you just completed a course of antibiotics Recommend Flonase spray and Zyrtec (or Claritin/Michelle) If you are using Afrin, you should stop after 3 days of use over the counter Cough syrup may cause drowsiness; avoid driving or take it at night time. Tylenol 1000mg every 8 hours as needed for pain rest, push fluids, and increase humidity of the air at home. Follow up with your primary care provider as scheduled this week Go to the ER for worsening symptoms or concerns. Patient Language: Indonesian Prescriptions: New doxycycline hyclate 100 mg tablet 100 mg PO BID 5 Days Qty: 10 0RF No Action atorvastatin 20 mg tablet 20 mg PO DAILY trimethoprim 100 mg tablet 100 mg PO DAILY citalopram 20 mg tablet 20 mg PO DAILY alendronate 70 mg tablet 70 mg PO DAILY terconazole 0.4 % cream VAGINAL primidone 50 mg tablet estradiol 0.01 % (0.1 mg/gram) cream VAGINAL amoxicillin-pot clavulanate 875-125 mg tablet 1 tablet PO Q12H 7 Days Qty: 14 0RF ipratropium bromide 21 mcg (0.03 %) spray,non-aerosol 2 spray INTRANASAL DAILY famotidine 40 mg tablet 40 mg PO DAILY amlodipine 5 mg tablet 5 mg PO DAILY divalproex 500 mg tablet,delayed release (DR/EC) 500 mg PO QID tamsulosin 0.4 mg capsule 0.4 mg PO BID levothyroxine 150 mcg tablet 150 mcg PO DAILY fluticasone propionate 50 mcg/actuation spray,suspension 1 spray INTRANASAL BID risperidone 0.5 mg tablet 0.5 mg PO DAILY buspirone 15 mg tablet 15 mg PO DAILY insulin glargine [Lantus Solostar U-100 Insulin] 100 unit/mL (3 mL) insulin pen 16 unit SUBCUT QPM insulin lispro [Humalog KwikPen Insulin] 100 unit/mL insulin pen 28 unit SUBCUT TID Trelegy Ellipta 200-62.5-25 mcg Blister With Device 1 inh INHALATION DAILY Ozempic 0.25 mg or 0.5 mg (2 mg/3 mL) pen injector 0.25 mg SUBCUT WEEKLY hydrochlorothiazide 25 mg tablet 25 mg PO BID lisinopril 20 mg tablet 20 mg PO BID hydroxyzine HCl 25 mg tablet 25 mg PO BID PRN (Reason: Itching) calcium carbonate-vitamin D3 [Calcium 600 with Vitamin D3] 600 mg-12.5 mcg (500 unit) capsule 1 cap PO DIRECTED ascorbate calcium (vitamin C) 500 mg tablet 500 mg PO DAILY Linzess 72 mcg capsule 72 mcg PO QAM estradiol [Yuvafem] 10 mcg tablet 10 mcg vaginal 2XW Qty: 24 3RF furosemide 40 mg tablet 40 mg PO BID Qty: 60 1RF Follow-up/Referrals: UNKNOWN,DOCTOR [Primary Care Provider] -
--- OUTSIDE RECORDS SUMMARY | 2024-12-19 16:54 | XMS_ITS | Encounter Summary ---
Author Organization [facility] Healthcare Address [address] [place] [address] Care Team Providers Care Pediatric Allergist Name Role Phone Javi Jones MD Unavailable [phone] Amarilis Rivera PT Unavailable Unavailable Stuart Douglas MD Unavailable [phone] Anthony Burks MD Primary Care Provider [phone] Miscellaneous, Not In File Primary Care Provider Unavailable Unknown, Notinfile Primary Care Provider Unavail able Sharon Moya MD Primary Care Provider [phone] Wu Saleem MD Unavailable [phone] Dominique Peck NP Primary Care Provider Encounter Details Date Type Department Care Team (Late st Contact Info) Description 02/12/2020 Telephone [facility] [address] [place] [address] Traci Urrutia, RT Social History Tobacco Use [...] re latives? 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 Gender Identity Not on file Sexual Orientation [...] documented as of this encounter Care Teams Pediatric Allergist Relationship Specialty Start Date End Date Anthony Burks MD PCP - General 09/08/19 08/04/21 Miscellaneous, Not In File PCP - General 08/05/21 08/05/21 Unknown, Notinfile PCP - General 08/06/21 08/17/21 Sharon Moya MD [address] [place] [address] PCP - General 08/18/21 11/24/24 Dominique Peck NP [address] [facility] [address] [place] [address] PCP - General Nurse Practitioner 11/25/24 Javi Jones MD [address] [place] [address] Referring Physician Orthopedic Surgery 01/20/18 5 Amarilis Rivera, PT Physical Therapist Physical Therapy 01/24/18 10/05/24 Stuart Douglas MD Surgeon Orthopedic Surgery 11/24/18 Wu Saleem MD [address] [facility] [address] [place] [address] Scrub Nurse Hematology and Oncology 08/22/24 documented as of this encounter
--- OUTSIDE RECORDS SUMMARY | 2024-12-19 16:55 | XMS_ITS | Encounter Summary ---
Author Organization [facility] Address [address] [facility] [place] [address] Phone Care Team Providers Care Make Up Operator Helper Name Role Phone Sharon Moya MD Primary Care Provider [phone] Chapito Garcia MD Unavailable Radha Mac DPM Unavailable [phone] Encounter Details Date Type Department Care Team (Late st Contact Info) Description 05/30/2024 Nursing Facility [facility] [address] [place], [place] [address] [place] [address] Fiorella Horn, TIMING INSPECTOR, ACQUISITION SPECIALIST [address] [place] [address] Social History Tobacco Use Types Packs/Day Years Used Date Smoking Tobacco: Former Cigarettes 1 12 Smokeless Tobacco: Never Alcohol Use Standard Drinks/Week Comments No 0 (1 standard drink = 0.6 oz pur e alcohol) [facility] Utilities Answer Date Recorded In the past 12 months has [employer] electric, gas, oil, or water company threatened to shut off services in your home? Patient declined 05/25/2024 Social Connection and Isolation Panel Answer Date Recorded In a typical week, how many times do you talk on the phone with family, friends, or neighbors? Patient declined 05/25/2024 How often do you get togethe r with friends or relatives? Patient declined 05/25/2024 How often do you attend presybeterian or judaism serv ices? Patient declined 05/25/2024 Do you belong to any clubs o r organizations such as presybeterian groups, unions, fraternal or athletic groups, or [...] Total Score - Questions 1-9 0 03/2022 [facility] - Occupational Stress Questionnaire Answer Date [...] any time in the past 12 m [facility], were you homeless or living in [...] Office Visit [facility] - Endocrinology [facility] [address] [place] [address] Chapito Garcia MD [address] [address] documented as of this encounter Visit Diagnoses Not on filedocumented in this encounter Care Teams Make Up Operator Helper Relationship Specialty Start Date End Date Sharon Moya MD [address] [place], [place] [id number] PCP - General Internal Medicine 09/16/21 Chapito Garcia MD [address] [phone] Consulting Physician Endocrinology 12/25/21 Radha Mac DPM [address] [phone] Consulting Physician Podiatry 05/26/22 documented as of this encounter
--- OUTSIDE RECORDS SUMMARY | 2024-12-19 16:55 | XMS_ITS | Encounter Summary ---
Author Organization [facility] Address [address] [place] [address] Phone Care Team Providers Care Airplane Tester Name Role Phone Sharon Moya MD Primary Care Provider [phone] Chapito Garcia MD Unavailable Radha Mac DPM Unavailable Encounter Details Date Type Department Care Team (Late st Contact Info) Description 06/05/2024 Nursing Facility [facility] [address] [place] [address] Tex Vargas, [facility] [address] [place], [place] [address] Social History Tobacco Use Types Packs/Day Years Used Date Smoking Tobacco: Former Cigarettes 1 12 Smokeless Tobacco: Never Alcohol Use Standard Drinks/Week Comments No 0 (1 standard drink = 0.6 oz pur e alcohol) [facility] Utilities Answer Date Recorded In the past 12 months has [employer] electric, gas, oil, or water [employer] threatened to shut off services in your home? Patient declined 05/25/2024 Social Connection and Isolation Panel Answer Date Recorded In a typical week, how many times do you talk on the phone with family, friends, or neighbors? Patient declined 05/25/2024 How often do you get togethe r with friends or relatives? Patient declined 05/25/2024 How often do you attend lutheran or oriental orthodox serv ices? Patient declined 05/25/2024 Do you belong to any clubs o r organizations such as lutheran groups, unions, fraternal or athletic groups, or [...] Questions 1-9 0 03/2022 [facility] - Occupational Stress Questionnaire Answer [...] any time in the past 12 m [facility], were you homeless or living in a jail (including now)? Patient declined 05/25/2024 Sexually Active [employer] Comments Not Currently Comments No Sex and Gender Information Value Date Recorded Sex Assigned at Female 02/22/2023 8:54 AM CDT Legal Sex Female 7:09 PM CDT Gender Identity Female 02/22/2023 8:54 AM CDT Sexual Orientation Not on file documented as of this encounter Progress Notes * Tex Vargas, PAC - 06/05/2024 11:59 PM CST [facility] PROGRESS NOTE Khadra Beltran is a 64 y.o. female at [facility] for rehabilitation. Pt is s/p recent hospitalization from 05/25-05/29/2024 for PNA and UTI and suspected new SDH. Pt was initially sent to [facility] ED for evaluation of poss new Subdural hematoma noted onCTH, after a suspected fall from her wheelchair. She then transferred to higher level of care to [facility] and was seen by neurosurgery at [facility] and deemed to have a chronic SDH. During her hospitalization, she was found to have Community acquired PNA and Urine culture grew Enterococcus organism. Pt was transferred back to [facility] for treatment of her infection. Was seen in consultation by IRINA-Dr. Awad and deemed to have asymptomatic Bacteriauria and no infection in lungs either. Her antibiotics were stopped and pt was discharged back to [facility]. Subjective: Interval History: I am seeing this [...] and moist, no lesion or exudate. - [place]. Neck: Supple. No JVD, lymphadenopathy thyromegaly or [...] limits Imaging: CTH showed chronic SDH and PUMPER HAND shunt intact. Assessment/Plan: Physical Deconditioning Resume therapy [...] UTI clinically Idiopathetic Normal Pressure Hydrocephalus with PUMPER HAND shunt Chronic SDH Seen by neurosurgery at [facility] and deemed to have chronic Subdural hematomas Monitor neuro checks DM type 2 Continue Lantus, Ozempic and sliding scale Monitor blood sugats COPD Not in exacerbation, continue inhalers Anxiety/depression/Bipolar Continue Risperidone and Depakote HTN/HLD Bp stable, continue statin and Norvasc VTE Prophylaxis: activity By: CASPER Velázquez 06/05/24 [facility] documented in this encounter Plan of Treatment Upcoming Encounters Date Type Department Care Team (Late st Contact Info) Description 12/21/2024 9:45 AM CDT Office Visit [facility] - Endocrinology - [place] [address] [place] [address] Chapito Garcia MD [address] [phone] documented as of this encounter Visit Diagnoses Not on filedocumented in this encounter Care Teams Airplane Tester Relationship Specialty Start Date End Date Sharon Moya MD [address] [place], [place] [id number] PCP - General Internal Medicine 09/16/21 Chapito Garcia MD [address] [phone] Consulting Physician Endocrinology 12/25/21 Radha Mac DPM #[address] [phone] Consulting Physician Podiatry 05/26/22 documented as of this encounter
--- OUTSIDE RECORDS SUMMARY | 2024-12-19 16:55 | XMS_ITS | Encounter Summary ---
Author Organization [facility] Address [address] [place] [address] Phone Care Team Providers Care Sweep Press Operator Name Role Phone Sharon Moya MD Primary Care Provider Chapito Garcia MD Unavailable Radha Mac DPM Unavailable [phone] Encounter Details Date Type Department Care Team (Late st Contact Info) Description 07/18/2024 Nursing Facility [facility] [address] [address] Fiorella Horn, PROTOTYPE MODEL MAKER, SOCIAL SERVICES AIDE [address] [place] [address] Social History Tobacco Use Types Packs/Day Years Used Date Smoking Tobacco: Former Cigarettes 1 12 Smokeless Tobacco: Never Alcohol Use Standard Drinks/Week Comments No 0 (1 standard drink = 0.6 oz pur e alcohol) [facility] Utilities Answer Date Recorded In the past 12 months has [employer] electric, gas, oil, or water company [...] declined 05/25/2024 How often do you attend mormon or voodoo serv ices? Patient declined 05/25/2024 Do you belong to any clubs o r organizations such as mormon groups, unions, fraternal or athletic groups, or [...] Total Score - Questions 1-9 0 03/2022 [facility] - Occupational Stress Questionnaire Answer Date Recorded [...] any time in the past [address] [facility], were you homeless or living in a intermediate (including now)? Patient declined 05/25/2024 Sexually Active [...] Office Visit [facility] - Endocrinology [facility] [address] [place] [address] Chapito Garcia MD [address] [phone] documented as of this encounter Visit Diagnoses Not on filedocumented in this encounter Care Teams Sweep Press Operator Relationship Specialty Start Date End Date Sharon Moya MD [address] [place], [place] [id number] PCP - General Internal Medicine 09/16/21 Chapito Garcia MD [address] [address] Consulting Physician Endocrinology 12/25/21 Radha Mac DPM #[address] [phone] Consulting Physician Podiatry 05/26/22 documented as of this encounter
--- OUTSIDE RECORDS SUMMARY | 2024-12-19 16:55 | XMS_ITS | Patient Health Record ---
[facility] Organization [facility] Address [address] [place] [address] Care Team Providers Care Mechanical Manager Name Role Phone Burks Anthony Primary Care Provider [phone] Zelda Malone Unavailable [phone] Allergies Allergen (clinical drug ingredient) Drug/Non Drug Allergy documented on EMR Reaction Allergy Type Onset Date Status Steroids steroids (uncoded) High blood sugar Allergy Active meperidine Demerol nausea and vomiting Drug Allergy Active carbamazepine Tegretol hives Drug Allergy Act arleth Results Component Value Reference Range Notes CBC With Differential/Platel et* Reviewed date:12/15/2024 10:44:04 AM Interpretation: Performing Lab: Notes/Report: Valproic Acid (Depakote)(R), S Reviewed date:12/15/2024 10:43:24 AM Interpretation: Performing Lab: Notes/Report: CMP 14 Comprehensive Metabol ic Panel* Reviewed date:12/15/2024 10:44:26 AM Interpretation: Performing Lab: Notes/Report: Reason For Referral No Information Medications Medication [...] days Active Proctozone-HC 2.5 % 1 application Patient Accounts Coordinator ally three times daily for 7 days [...] BEDTIME for 33 Active Easy Touch Pen [place] 32G X 5 MM as directed inject [...] Problem Status W/U Status Risk Notes Problem 67223766 Hyperkalemia (E87.5) Active confirmed Problem 72303989 Other chronic pa in (G89.29) Active confirmed Problem Bipolar 1 disorder (758262136) Bipolar 1 disorder (F31.9) 017 Active confirmed Problem 4721315 Former smoker (Z87.891) Active confirmed Problem 121308843 Environmental allergies (Z91.09) Active confirmed Problem 57047246 Hypertension, essential (I10) 021 Active confirmed Problem 74052087 Constipation, unspecified constipation type (K59.00) Active confirmed Problem 309731973 Gastroesophageal reflux disease, esophagitis presence not specified (K21.9) Active confirmed Problem 54436936 Hyperlipidemia, unspecified hyperlipidemia type (E78.5) Active confirmed Problem 28592577 Chronic obstructive pulmonary disease, unspecified COPD type (J44.9) Active confirmed Problem 904387112 Primary osteoarthritis of both knees (M17.0) Active confirmed Problem 203209026 Type 2 diabetes mellitus without complication, unspecified jail insulin use status (E11.9) 017 Active confirmed Problem 933012783 Pneumonia due to infectious organism, unspecified laterality, unspecified part of lung (J18.9) Active confirmed 01/2021 - RESOLVED Problem 54990965 Upper respirator y tract infection, unspecified type (J06.9) Active confirmed Problem Chronic rhinitis (58281377) Rhinitis, unspecified type (J31.0) Active confirmed Problem Acquired hypothyroidism (727962954) Acquired hypothyroidism (E03.9) Active confirmed Problem 732691257 Stage 3 chronic kidney disease (N18.3) Active confirmed DR WILSON RENAL Specialist Problem Obesity (165934154) Obesity, unspecified classification, unspecified obesity type, unspecified whether serious comorbidity present (E66.9) Active confirmed Problem 64211352 Dyspnea on exertion (R06.00) Active confirmed Problem 18695608 Osteoporosis, unspecified (M81.0) Active confirmed Encounters Encounter Location Date Provider Diagnosis [address] [address] 02/04/2024 Arif Habib Bipolar 1 disorder F31.[address] [address] 04/25/2024 Arif Habib Bipolar 1 disorder F31.[address] [address] 06/20/2024 Arif Habib Bipolar 1 disorder F31.[address] [address] 08/01/2024 Arif Habib Bipolar 1 disorder F31.[address] [address] 10/24/2024 Arif Habib Bipolar 1 disorder F31.[address] [address] 02/01/2024 Arif Habib Bipolar 1 disorder F31.[address] [address] 02/02/2024 Arif Habib [address] [address] 02/04/2024 Arif Habib Bipolar 1 disorder F31.[address] [address] 04/27/2024 Anthony Burks [address] [address] 07/28/2024 Arif Habib Bipolar 1 disorder F31.[address] [place] [address] 09/19/2024 Zelda Malone Bipolar 1 disorder F31.[address] [place] [address] 10/24/2024 Anthony Burks [facility] [address] [place] [address] 11/03/2024 Anthony Burks [facility] [address] [place] [address] 11/09/2024 Zelda Malone Assessments Encounter Date Diagnosis (ICD Code) Assessment Notes Treatment Notes Treatment Clinical Notes Section Notes 02/01/2024 Bipolar 1 disorder (ICD-10 - F31.9) 02/04/2024 Bipolar 1 disorder (ICD-10 - F31.9) 02/04/2024 Bipolar 1 disorder (ICD-10 - F31.9) 04/25/2024 Bipolar 1 disorder (ICD-10 - F31.9) continue current treatment. Side effects discussed. Supportive treatment provided. No involuntary movements reported. Check depakote level, CBC, CMP 06/20/2024 Bipolar 1 disorder (ICD-10 - F31.9) continue current treatment. Side effects discussed. Supportive treatment provided. No involuntary movements reported. 07/28/2024 Bipolar 1 disorder (ICD-10 - F31.9) [...] her labs done regularly at PCP office. 02/04/2024 Other side effects discussed. Supportive treatment provided. Depakote level is still pending. She said she is going to her PCP today for blood work. She usually has regular blood work by PCP. Plan Of Treatment Pending Test Test Name Order Date Electrocardiogram (EKG) 10/24/2018 Xray : CHEST PA LATERAL 10/24/2018 MRI : Lumbar without contrast 03/30/2019 CBC With Differential/Platelet* 02/03/20 23 Valproic Acid (Depakote)(R),S 02/02/2023 CMP 14 Comprehensive Metabolic Panel* Future Test Test Name Order Date DEXA Hip and Spine 09/30/2020 Insurance Providers Payer Name Payer Address Payer Phone Subscriber Number Group Number Insured Name Patient Relationship to Insured Coverage Start Date Coverage End Date [facility] Medicare Assure [address] [address] [place] [address] [phone] [id number] Khadra Beltran Self - patient is the insured 2 MEDICAID [address] [address] [id number] Khadra Beltran Self - patient is the insured 5 4 Medical (General) History Medical History History ICD Code DM HLD hypothyroidism allergies Normal Pressure Hydrocephalus with ventr iculoperitonela shunt in 2014 Surgical History Surgery Date(Month/Year) cholecystectomy TOTAL HYSTERECTOMY APPENDECTOMY CATARACT SURGERY, COMPLEX Hospitalization History Reason Date(Month/Year) High Blood sugar- [facility] 01/2023 Pnuemonia at [facility] 09/11/19 acute ecoli infection 02/2016
--- OUTSIDE RECORDS SUMMARY | 2024-12-19 16:55 | XMS_ITS | Encounter Summary ---
Author Organization [facility] Address [address] [facility] [place] [address] Phone Care Team Providers Care Roof Cement And Paint Maker Name Role Phone Sharon Moya MD Primary Care Provider [phone] Chapito Garcia MD Unavailable Radha Mac DPM Unavailable Encounter Details Date Type Department Care Team (Late st Contact Info) Description 06/12/2024 Nursing Facility [facility] [address] [place], [place] [address] [place] [address] Fiorella Horn, DESIGN STUDIO CONSULTANT, MUD CAR WORKER [address] [place] [address] Social History Tobacco Use Types Packs/Day Years Used Date Smoking Tobacco: Former Cigarettes 1 12 Smokeless Tobacco: Never Alcohol Use Standard Drinks/Week Comments No 0 (1 standard drink = 0.6 oz pur e alcohol) [facility] Utilities Answer Date Recorded In the past 12 months has [employer] electric, gas, oil, or water company threatened [...] How often do you attend nondenominational or adventist serv ices? Patient declined 05/25/2024 Do you [...] Total Score - Questions 1-9 0 03/2022 [facility] - [facility]ational Stress Questionnaire Answer Date [...] were you homeless or living in a senior care (including now)? Patient declined 05/25/2024 Sexually Active [...] Office Visit [facility] - Endocrinology [facility] [address] [place] [address] Chapito Garcia MD [address] [address] documented as of this encounter Visit Diagnoses Not on filedocumented in this encounter Care Teams Roof Cement And Paint Maker Relationship Specialty Start Date End Date Sharon Moya MD [address] [place], [place] [id number] PCP - General Internal Medicine 09/16/21 Chapito Garcia MD [address] [phone] Consulting Physician Endocrinology 12/25/21 Radha Mac DPM [address] [phone] Consulting Physician Podiatry 05/26/22 documented as of this encounter
--- OUTSIDE RECORDS SUMMARY | 2024-12-19 16:55 | XMS_ITS | Clinical Summary ---
Author Organization [facility] Address [address] [place] [address] Care Team Providers Care Associate Field Service Engineer Name Role Phone Stuart Douglas MD Unavailable [phone] Wu Saleem MD Unavailable [phone] Dominique Peck NP Primary Care Provider [...] 1 tablet (150 mcg total) by mouth goring cutter before breakfast Active furosemide (LASIX) 20 mg [...] by mouth daily Active miscellaneous medical supply [facility] Power Scooter 12/25/19 18 Active NEBULIZER AND COMPRESSOR [facility] 04/14/20 21 Active potassium chloride in LR-D5 (dextrose 5% in Lactated Ringer's with potassium chloride 20 mEq/L) 20 mEq/L infusion daily Active underpads pad as directed 03/30/20 18 Active pregabalin (LYRICA) 50 mg capsule 06/06/20 22 Active empty container (BD [employer] Consultant) [facility] 12/10/19 18 Active miconazole 200 [...] 06/09/2023 Assessment & Plan (06/09/2023 1:41 PM COFFEE GROWER): Nasal saline spray (Simply saline, Little Remedies, [place], [place]) 2 second sprays or 2 squeezes into [...] (07/30/2022): Added automatically from request for surgery [id number] Assessment & Plan (08/06/2022 8:36 PM COFFEE GROWER): Schedule sigmoidoscopy and treatment of hemorrhoids. Hemorrhoids 07/30/2022 Overview (07/30/2022): Added automatically from request for surgery [id number] Coronary artery disease invo lving kasaan coronary artery of kasaan heart without angina pectoris 02/25/2022 Coronary artery calcification 02/25/2022 Chronic pain 02/25/2022 Constipation 02/25/2022 Assessment & Plan (08/06/2022 8:43 PM COFFEE GROWER): Chronic constipation. Start Linzess 72 Mcg daily. [...] Nasal saline spray (Simply saline, Little Remedies, [place], [place]) 2 second sprays or 2 squeezes into [...] future Assessment & Plan (06/03/2021 2:53 PM COFFEE GROWER): Nasal saline spray (Simply saline, Little Remedies, [place], [place]) 2 second sprays or 2 squeezes into [...] medications Assessment & Plan (07/15/2020 1:19 PM COFFEE GROWER): Start Nasal saline spray (Simply saline, Little Remedies, [place], [place]) 2 second sprays or 2 squeezes into [...] daily Assessment & Plan (05/21/2020 10:09 AM COFFEE GROWER): Nasal saline spray (Simply saline, Little Remedies, [place], [place]) 2 second sprays or 2 squeezes into [...] 05/21/2020 Assessment & Plan (08/09/2024 8:37 AM COFFEE GROWER): Finish Doxycycline Follow up as needed Assessment & Plan (06/09/2023 1:40 PM COFFEE GROWER): Nasal saline spray (Simply saline, Little Remedies, [place], [place]) 2 second sprays or 2 squeezes into [...] needed Assessment & Plan (06/30/2022 10:04 AM COFFEE GROWER): Nasal saline spray (Simply saline, Little Remedies, [place], [place]) 2 second sprays or 2 squeezes into [...] prescription Assessment & Plan (07/23/2021 12:07 PM COFFEE GROWER): Augmentin with a meal twice daily for 10 days, call if no improvement Continue Atrovent 2 sprays into each nostril while looking down over the sink, do not sniff in or blow nose after use for at least 30 minutes 1-2 times daily Assessment & Plan (05/21/2020 8:56 PM COFFEE GROWER): Nasal saline spray (Simply saline, Little Remedies, [place], [place]) 2 second sprays or 2 squeezes into [...] (10/19/2018): Added automatically from request for surgery [id number] Bilateral primary osteoarthritis of knee 02/03/2017 02/09/2022 Encounters Date Type Department Care Team Description 12/18/2024 3:00 PM CDT - 12/18/2024 11:59 PM CDT Hospital Encounter [facility] [place] [address] [place] [address] Idiopathic normal pressure hydrocephalus (HCC) Discharge Disposition: Discharge to home or self care 12/15/2024 Telephone [facility] [address] [place] [address] Asencioa 12/13/[address] [address] Chayo Jackson 11/30/2024 Telephone [facility] Scheduling [address] [place] [address] Radha Graham PA 11/21/2024 8:30 AM CDT Office Visit [facility] [address] [place] [address] Jerzy Edwards MD Idiopathic normal pressure hydrocephalus (CMS/HCC) (Primary Dx); Tremor 10/30/2024 9:15 AM CDT Lab [address] [address] 10/23/2024 10:05 AM CDT Lab [address] [address] 10/06/2024 10:00 AM CDT Office Visit [facility] Physicians [facility] Oncology [address] Medical Office [address] [place] [address] Wu Saleem MD Thrombocytopenia, unspecified (Primary Dx) 10/06/2024 9:[address] [facility] [place] [address] [place] [address] Thrombocytopenia, unspecified from Last 3 Months Immunizations [...] often do you attend chur ch or shinto services? 1 to 4 times per year 12/26/2020 Do you belong to any clubs o r organizations such as scientologist groups, unions, fraternal or athletic groups, or [...] on file Legal Sex Female 12:39 AM COFFEE GROWER Gender Identity Not on file Sexual Orientation [...] Body Mass Index 29.43 08/09/2024 8:22 AM COFFEE GROWER Plan of Treatment Health Maintenance Due Date Last Done Comments Albumin Creatinine Ratio, Urine 1959 Colon Cancer Screening-Colonoscopy 1959 Dilated Eye Exam 1959 Foot Exam 1959 Zoster Vaccine (1 of 2) 1978 Lipid Panel 11/21/2019 11/20/2018, 09/10, 04/05/2017, Additional history exists Depression Screening 09/10/2020 09/11/2019, 11/22/2018, 11/19/2018, Additional history exists Fall Risk Assessment 12/27/2021 12/27/2020 Well Visit 65+ 2024 Covid-19 Vaccine (2023- 5 season) 2024 10/25/2023, 09/09/2022, 09/18/2021, Additional history exists Hemoglobin A1C 11/20/2024 05/23/2024, 04/0 08/2019, 10/18/2018, Additional history exists Breast Cancer Screening-Mammogram 12/09/2024 12/10/2023, 09/28/2022, 04/22/2021, Additional history exists Influenza Vaccine (Season Ended) [...] 07/23/2023, 015 Medical Devices Implanted Type Area Hooker Laster Device Identifier Shelf Expiration Date Model / Serial / Lot Shunt-11/05/2014 Implanted:2014 by Jerzy Redman MD (Quantity not on file) Shunt Right: Brain [employer] X [id number] / 0 / [id number] [employer] [id number] Attune Cementless Rotate Platform Knee 7 Baseplate Tibial - [id number] Implanted:Qty: 1 on 11/14/2018 by Stuart Douglas MD at [facility] Right: Knee [employer] 08/11/2027 [id number] / / [id number] [employer] [id number] Attune Cruciate Retain Cementless Knee Right 5 Component Femoral - [id number] Implanted:Qty: 1 on 11/14/2018 by Stuart Douglas MD at [facility] Right: Knee [employer] 02/09/2028 [id number] / / [id number] [employer] [id number] Attune 5mm Cruciate Retaining Rotate Platform Knee 5 Insert - [id number] Implanted:Qty: 1 on 11/14/2018 by Stuart Douglas MD at [facility] Right: Knee [employer] 08/11/2023 [id number] / / [id number] Procedures Procedure Name Priority Date/Time Associated Diagnosis [...] HEPATITIS C ANTIBODY Routine 07/23/2023 9:40 AM COFFEE GROWER Rheumatoid factor positive HEMOGLOBIN A1C Add-On 10/12/2019 [...] LAB BLOOD ORDERABLES Final Resul t DYAN [facility] ([place]) [address] Department of Laboratories [place], [place] [id number] * (ABNORMAL) Differential, auto (10/30/2024 9:32 AM CDT) Neutrophil abs 3.45 1.50 - 6.50 K/cumm Imm gran abs 0.06 0.00 - 0.10 K/cumm [facility] ([place]) Lymphocyte abs 1.64 0.80 - [...] revised on 2017. Monocyte pct 14.0 % [facility] ([place]) Comment: Interpretive Data [...] MD LAB BLOOD ORDERABLES Final Resul t DARYNLALA KELLY ([place]) [address] Department [place] [address] * (ABNORMAL) CBC with auto differential (10/30/2024 [...] RDW SD 52.2(H) 35.7 - 48.1 fL [facility] ([place]) NRBC abs 0.00 0.00 - 0.01 K/cumm [facility] ([place]) Blood 10/30/2024 9:32 AM CDT 10/30/2024 9:54 AM CDT Zelda Malone MD LAB BLOOD ORDERABLES Final Resul t Performing Organization Address City/State/[facility] Co de Phone Number DYAN [facility] ([place]) [address] Department [place] [address] * Valproic acid level, total (10/30/2024 9:32 AM CDT) Valproic Acid 61.4 50.0 - 100.0 mcg/mL Comment: Interpretive Data Therapeutic range: 50-100 mcg/mL Current interpretive data was last revised on 2014 Blood 10/30/2024 9:32 AM CDT 10/30/2024 9:54 AM CDT Zelda Malone MD LAB BLOOD ORDERABLES Final Resul t [facility] ([place]) [address] Department [place] [address] * (ABNORMAL) Comprehensive metabolic panel (10/30/2024 9:32 AM CDT) Sodium 142 135 - 145 mmol/L Potassium, pl 4.9 3.3 - 4.9 mmol/L [facility] ([place]) Chloride 104 97 - 110 [...] BLOOD ORDERABLES Final Resul t DYAN [facility] ([place]) [address] [facility] [address] * (ABNORMAL) eGFR (10/23/2024 10:17 AM CDT) [...] BLOOD ORDERABLES Final Res ult DYAN [facility] ([place]) [address] [place] [address] * Protein / creatinine ratio, urine, random (10/23/2024 10:17 AM CDT) Protein, ur, quant 5.7 mg/dL Comment: Interpretive Data No reference range established. Current interpretive data was last revised 2018. Creatinine Ur 54.1 mg/dL [facility]NL[facility]A [facility] ([place]) Comment: Interpretive Data No reference range established. Current interpretive data was last revised 2018. Protein/creatinin e ratio 105.4 0.0 - 180.0 mg/g CR D[facility]AN [facility] ([place]) Urine 10/23/2024 10:1 7 AM CDT 10/23/2024 10:34 AM CDT Uche Phan MD LAB URINE ORDERABLES Final Res ult [facility]AN [facility] ([place]) [address] [facility] [place] [address] * Vitamin D 25 hydroxy (10/23/2024 10:17 AM CDT) Vitamin D 25-OH 40 30 - 80 ng/mL Blood 10/23/2024 10:1 7 AM CDT 10/23/2024 10:32 AM CDT Uche Phan MD LAB BLOOD ORDERABLES Final Res ult Performing Organization Address City/[facility] Co de Phone Number DYAN [facility] ([place]) [address] [facility] [place] [address] * (ABNORMAL) PTH (10/23/2024 10:17 AM CDT) PTH 72(H) 15 - 65 pg/mL Blood 10/23/2024 10:1 7 AM CDT 10/23/2024 10:32 AM CDT Uche Phan MD LAB BLOOD ORDERABLES Final Res ult Performing Organization Address City/[facility]/ZIP Co de Phone Number DYAN [facility] ([place]) [address] [facility] [place] [address] * (ABNORMAL) Renal function panel (10/23/2024 10:17 [...] ([place]) Glucose 151 70 - 199 mg/dL CERNER [...] MD LAB BLOOD ORDERABLES Final Res ult [facility] ([place]) [address] Department [place] [address] * Differential, auto (10/06/2024 9:15 AM CDT) Neutrophil abs 4.2 1.5 - 6.5 K/cumm Comment:Testing performed by : [facility] [place], [address] [facility] , Medical Office [address], [place] [address] Imm gran abs 0.0 0.0 - 0.1 K/cumm [facility] ([place]) Comment:Testing performed by : [facility] [address], Medical Office [facility] [address], [place] [address] Lymphocyte abs 1.5 0.8 - 3.3 K/cumm [facility] ([place]) Comment:Testing performed by : [facility] [address], Medical Office [facility] [address], [place] [address] Monocyte abs 0.7 0.2 - 0.8 K/cumm [facility] ([place]) Comment:Testing performed by : [facility] [address], Medical Office [facility] [address], [place] [address] Eosinophil abs 0.1 0.0 - 0.5 K/cumm [facility] ([place]) Comment:Testing performed by : [facility] [address], Medical Office [facility] [address], [place] [address] Basophil abs 0.0 0.0 - 0.1 K/cumm [facility] ([place]) Comment:Testing performed by : [facility] [address], Medical Office [facility] [address], [place] [address] Neutrophil pct 63.6 % [facility] ([place]) Comment: Interpretive Data Percent cell count reference ranges are not reported, since discordance with absolute values may lead to misinterpretation of CBC data. Current Interpretive Data was last revised on 2022. Testing performed by: [facility] [address], Medical Office [facility] [address], [place] [address] Imm gran pct 0.6 % [facility] ([place]) Comment: Interpretive Data Percent cell count reference ranges are not reported, since discordance with absolute values may lead to misinterpretation of CBC data. Current Interpretive Data was last revised on 2022. Testing performed by: [facility] [address], Medical Office [facility] [address], [place] [address] Lymphocyte pct 22.8 % [facility] ([place]) Comment: Interpretive Data Percent cell count reference ranges are not reported, since discordance with absolute values may lead to misinterpretation of CBC data. Current Interpretive Data was last revised on 2022. Testing performed by: [facility] [address], Medical Office [facility] B [facility] [address], [place] [address] Monocyte pct 10.9 % DYAN KE[facility] ([place]) Comment: Interpretive Data Percent cell count reference ranges are not reported, since discordance with absolute values may lead to misinterpretation of CBC data. Current Interpretive Data was last revised on 2022. Testing performed by: [facility] [address], Medical Office [facility] B [facility] [address], [place] [address] Eosinophil pct 1.5 % [facility] ([place]) Comment: Interpretive Data Percent cell count reference ranges are not reported, since discordance with absolute values may lead to misinterpretation of CBC data. Current Interpretive Data was last revised on 2022. Testing performed by: [facility] [address], Medical Office [facility] B [facility] [address], [place] [address] Basophil pct 0.6 % D[facility]AN [facility] ([place]) Comment: Interpretive Data Percent cell count reference ranges are not reported, since discordance with absolute values may lead to misinterpretation of CBC data. Current Interpretive Data was last revised on 2022. Testing performed by: [facility] [address], Medical Office [facility] [address], [place] [address] Blood 10/06/2024 9:15 AM CDT 10/06/2024 9:23 AM CDT us Wu Saleem MD LAB BLOOD ORDERABLES Final Re sult DYAN [facility] ([place]) [address] [place] [address] * (ABNORMAL) CBC with auto differential (10/06/2024 9:15 AM CDT) WBC 6.5 3.8 - 9.9 K/cumm Comment:Testing performed by : [facility] [address], Medical Office [facility] [address], [place] [address] Hgb 13.2 11.9 - 15.5 g/dL [facility] ([place]) Comment:Testing performed by : [facility] [address], Medical Office [facility] [address], [place] [address] Hct 41.9 35.6 - 45.5 % [facility] ([place]) Comment:Testing performed by : [facility] [address], Medical Office [address], [place] [address] Plt 126(L) 150 - 400 K/cumm [facility] ([place]) Comment:Testing performed by : [facility] [address], Medical Office [facility] [address], [place] [address] MPV 11.3 9.1 - 12.3 fL [facility] ([place]) Comment:Testing performed by : [facility] [address], Medical Office [facility] [address], [place] [address] RBC 4.31 3.90 - 5.20 M/cumm [facility] ([place]) Comment:Testing performed by : [facility] [address], Medical Office [facility] [address], [place] [address] MCV 97.2(H) 81.3 - 96.4 fL [facility] ([place]) Comment:Testing performed by : [facility] [address], Medical Office [facility] [address], [place] [address] MCH 30.6 27.1 - 33.3 pg [facility] ([place]) Comment:Testing performed by : [facility] [address], Medical Office [facility] [address], [place] [address] MCHC 31.5(L) 32.3 - 35.7 g/dL [facility] ([place]) Comment:Testing performed by : [facility] [address], Medical Office [facility] [address], [place] [address] RDW CV 14.6 11.1 - 14.9 % [facility] ([place]) Comment:Testing performed by : [facility]tr [address], Medical Office [facility] [address], [place] [address] RDW SD 53.2(H) 35.7 - 48.1 fL [facility] ([place]) Comment:Testing performed by : [facility] [address], Medical Office [address], [place] [address] NRBC abs Not Measured 0.00 - 0.01 K/cumm DYAN [facility] ([place]) Comment:Testing performed by : [facility] [place], [address] [facility] , Medical Office [facility] [address], [place] [address] Blood 10/06/2024 9:15 AM CDT 10/06/2024 9:23 AM CDT Wu Saleem MD LAB BLOOD ORDERABLES Final Re sult D[facility]AN [facility] ([place]) [address] Department [place] [address] * (ABNORMAL) eGFR (10/06/2024 9:00 AM CDT) [...] last reviewed 2021. Testing performed by: [facility], [address], [place], [address] Blood 10/06/2024 9:00 AM CDT 10/06/2024 9:55 AM CDT Wu Saleem MD LAB BLOOD ORDERABLES Final Re sult [facility] ([place]) [address] Department [place] [address] * (ABNORMAL) Comprehensive metabolic panel (10/06/2024 9:00 AM CDT) Sodium 136 135 - 145 mmol/L Comment:Testing performed by : [facility], [facility], [place], [address] Potassium, pl 5.3(H) 3.3 - 4.9 mmol/L [facility] ([place]) Comment:Testing performed by : [facility], [facility], [place], [address] Chloride 101 97 - 110 mmol/L [facility] ([place]) Comment:Testing performed by : [facility], [facility], [place], [address] CO2 24 22 - 32 mmol/L [facility] ([place]) Comment:Testing performed by : [facility], [place], [address] Anion gap 11 2 - 15 mmol/L [facility] ([place]) Comment:Testing performed by : [facility], [facility], [place], [address] BUN 48(H) 6 - 25 mg/dL [facility] ([place]) Comment:Testing performed by : [facility], [place], [address] Creatinine 1.67(H) 0.60 - 1.10 mg/dL [facility] ([place]) Comment:Testing performed by : [facility], [place], [address] Glucose 380(H) 70 - 199 mg/dL CERNER [...] was last revised 2022. Testing performed by: [facility], [place], [address] Calcium 9.4 8.5 - 10.3 mg/dL [facility] ([place]) Comment:Testing performed by : [facility], [place], [address] Bilirubin, total 0.3 0.1 - 1.2 mg/dL [facility] ([place]) Comment:Testing performed by : [facility], [place], [address] Protein, pl 6.4(L) 6.5 - 8.5 g/dL [facility] ([place]) Comment:Testing performed by : [facility], [place], [address] Albumin 4.1 3.5 - 5.0 g/dL [facility] ([place]) Comment:Testing performed by : [facility], [place], [address] Alk phos 71 40 - 130 Units/L [facility] ([place]) Comment:Testing performed by : [place], [address] ALT 19 7 - 45 Units/L [facility] ([place]) Comment:Testing performed by : [facility], [place], [address] AST 18 10 - 45 Units/L [facility] ([place]) Comment:Testing performed by : [place], [address] Blood 10/06/2024 9:00 AM CDT 10/06/2024 9:55 AM CDT Wu Saleem MD LAB BLOOD ORDERABLES Final Re sult [facility] ([place]) [address] Department [place] [address] * Screening Mammogram Bilateral W Raul (12/10/2023 [...] suspicious finding in either breast on mammogram. us Nona Conklin MD IMG MAMMO PROCEDURES Final [...] F with given history of: Osteoporosis Screening. Hooker Laster/Model: EzLike SL (S/N [id number]) CLINICAL INFORMATION: Current height: 64 inches Maximum [...] Jerzy Velazquez M.D. MF: BREANNA Report ID: [id number] Reading Location: [address] Note Jerzy Velazquez MD - 11/03/2023 EXAM DESCRIPTION: DEXA AXIAL SKELETON BONE DENSITY 1 OR MORE SITES REASON FOR STUDY: 63 y/o year old F with given history of:Osteoporosis Screening. Hooker Laster/Model: EzLike SL (S/N [id number]) CLINICAL INFORMATION: Current height: 64 inches Maximum [...] Jerzy Velazquez M.D. MF: BREANNA Report ID: [id number] Reading Location: [place] [address] Sharon Moya MD IM DXA PROCEDURES Final Resu lt * Hepatitis C antibody Blood (07/23/2023 9:40 AM COFFEE GROWER) Pathologist [facility] Hep C Ab Nonreactive Nonreactive [facility]YAN [facility] Comment:Antibodies to HCV no t detected. Does NOT exclude the possibility of recent exposure to HCV. Current interpretive data was last revised on 22 Blood 07/23/2023 9:40 AM COFFEE GROWER 07/23/2023 10:02 AM COFFEE GROWER Amadeo Gamez MD LAB MICROBIOLOGY - GENERA L ORDERABLES Final Result [facility] One [facility] Department [place] [address] * (ABNORMAL) Hemoglobin A1c (10/12/2019 6:42 AM [...] and children were not included. (Diabetes Care 31:2654-6481, 2008). The eAG is not equivalent to a fasting glucose. Blood specimen (specimen) 10/12/2019 6:42 AM CDT 10/13/2019 11:17 AM CDT Kwaku Menezes MD LAB BLOOD ORDERABLES Final Resul t Performing Organization Address City/[facility]/ZIP Co de Phone Number [facility] ([place]) [address] Department [place] [address] * (ABNORMAL) Lipid panel (11/20/2018 12:47 AM [...] on 2018. Chol/HDL ratio 5 JUAN KE[facility] ([place]) Blood specimen (specimen) 11/20/2018 12:47 AM CDT 11/20/2018 12:49 AM CDT Narrative DYAN ROBIN ([place]) - 11/20/2018 1:38 AM CDT This lipid panel was automatically ordered due to a Troponin-T. The dietary status of the patient at the collection time should be correlated with the lipid results. (Reflex test added by rule GL_[id number]_LIPID; ag1) us Tony Patterson MD LAB BLOOD ORDERABLES Final R esult [facility]AN KE[facility] ([place]) [address] [facility] Department [place] [address] from Last 3 Months or Most Recently Relevant to Health Maintenance Insurance [address] [place] [address] [facility] MED[employer] [address]AGE [address] [place] [phone] [facility] [address] [place] [id number] [facility] [place] [phone] [facility] IDPA Advance Directives For more information, please contact: [phone] * Full Code (Latest Code Status on [...] 11:50 AM 11/24/2018 10:15 PM Care Teams Associate Field Service Engineer Relationship Specialty Start Date End Date Dominique Peck NP [address] [facility] [address] ABDIFATAH [address] [place] [address] PCP - General Nurse Practitioner 11/25/24 Stuart Douglas MD Surgeon Orthopedic Surgery 11/24/18 Wu Saleem MD [address] [place] [address] [address] [place] [address] Leather Dresser Hematology and Oncology 08/22/24
--- OUTSIDE RECORDS SUMMARY | 2024-12-19 16:55 | XMS_ITS | Encounter Summary ---
Author Organization [facility] Address [address] [facility] [place] [address] Phone Care Team Providers Care Tree Worker Name Role Phone Sharon Moya MD Primary Care Provider Chapito Garcia MD Unavailable Radha Mac DPM Unavailable Encounter Details Date Type Department Care Team (Late st Contact Info) Description 06/27/2024 Nursing Facility [facility] [address] [place], [place] [address] [place] [address] Fiorella Horn, RELAY DISPATCHER, INTERNATIONAL FLIGHT ATTENDANT [address] [place] [address] Social History Tobacco Use Types Packs/Day Years Used Date Smoking Tobacco: Former Cigarettes 1 12 Smokeless Tobacco: Never Alcohol Use Standard Drinks/Week Comments No 0 (1 standard drink = 0.6 oz pur e alcohol) [facility] Utilities Answer Date Recorded In the past 12 months has [employer] electric, gas, oil, or water company threatened [...] declined 05/25/2024 How often do you attend congregational or catholic serv ices? Patient declined 05/25/2024 Do you belong to any clubs o r organizations such as congregational groups, unions, fraternal or athletic groups, or [...] Total Score - Questions 1-9 0 03/2022 [facility] - Occupational Stress Questionnaire Answer Date [...] any time in the past 12 m [facility], were you homeless or living in a long-term (including now)? Patient declined 05/25/2024 Sexually Active [...] Office Visit [facility] - Endocrinology [facility] [address] [place] [address] Chapito Garcia MD [address] [phone] documented as of this encounter Visit Diagnoses Not on filedocumented in this encounter Care Teams Tree Worker Relationship Specialty Start Date End Date Sharon Moya MD [address] [place], [place] [id number] PCP - General Internal Medicine 09/16/21 Chapito Garcia MD [address] [address] Consulting Physician Endocrinology 12/25/21 Radha Mac DPM [address] [phone] Consulting Physician Podiatry 05/26/22 documented as of this encounter
--- OUTSIDE RECORDS SUMMARY | 2024-12-19 16:55 | XMS_ITS | Encounter Summary ---
Author Organization [facility] Healthcare Address [address] [place] [address] Care Team Providers Care Warehouse Team Leader Name Role Phone Javi Jones MD Unavailable [phone] Amarilis Rivera PT Unavailable Unavailable Stuart Douglas MD Unavailable [phone] Sharon Moya MD Primary Care Provider [phone] Wu Saleem MD Unavailable [phone] Dominique Peck NP Primary Care Provider Reason for Visit * Auth/Cert Specialty Diagnoses / Procedures Referred By Casi t Referred To Contact Diagnoses Rectal bleeding Personal history of colonic polyps Encounter for screening colonoscopy Rectal bleeding [K62.5] Personal history of colonic polyps [Z86.010] Encounter for screening colonoscopy [Z12.11] Procedures WY COLONOSCOPY FLX DX W/COLLJ SPEC WHEN PFRMD COLONOSCOPY Referral ID Status Reason Start Date Expiration Date Visits Re quested Visits Authorized [id number] 1 1 Encounter Details Date Type Department Care Team (Late st Contact Info) Description 01/17/2024 Hospital Encounter [facility] [address] [place] [address] Hosea Osorio MD [address] [place] [address] [address] Social History Tobacco Use Types Packs/Day Years [...] often do you attend chur ch or quaker services? 1 to 4 times per year 12/26/2020 Do you belong to any clubs o r organizations such as yazdanism groups, unions, fraternal or athletic groups, or [...] on file Legal Sex Female 12:39 AM [employer] PLANNING INTERN Gender Identity Not on file Sexual Orientation [...] colonoscopy documented in this encounter Care Teams Warehouse Team Leader Relationship Specialty Start Date End Date Sharon Moya MD [address] [place] [address] PCP - General 08/18/21 11/24/24 Dominique Peck, JARETT [address] [facility] [address] [facility] [address] [place] [address] PCP - General Nurse Practitioner 11/25/24 Javi Jones MD [address] [place], [place] [id number] Referring Physician Orthopedic Surgery 01/20/18 5 Amarilis Rivera, PT Physical Therapist Physical Therapy 01/24/18 10/05/24 Stuart Douglas MD Surgeon Orthopedic Surgery 11/24/18 Wu Saleem MD [address] [facility] [address] [place] [address] Cycle Repairer Hematology and Oncology 08/22/24 documented as of this encounter
--- OUTSIDE RECORDS SUMMARY | 2024-12-19 16:55 | XMS_ITS | Encounter Summary ---
Author Organization [facility] Address [address] [facility] [place] [address] Phone Care Team Providers Care Carpet Yarn Winder Operator Name Role Phone Sharon Moya MD Primary Care Provider [phone] Chapito Garcia MD Unavailable Radha Mac DPM Unavailable [phone] Encounter Details Date Type Department Care Team (Late st Contact Info) Description 07/18/2024 Nursing Facility [facility] [address] [place] [address] Fiorella Horn, CUSTOMER SOLUTIONS SPECIALIST, APPLIANCE PARTS COUNTER CLERK [address] [place] [address] Social History Tobacco Use Types Packs/Day Years Used Date Smoking Tobacco: Former Cigarettes 1 12 Smokeless Tobacco: Never Alcohol Use Standard Drinks/Week Comments No 0 (1 standard drink = 0.6 oz pur e alcohol) [facility] Utilities Answer Date Recorded In the past 12 months has [employer] electric, gas, oil, or water company threatened [...] How often do you attend presybeterian or orthodoxy serv ices? Patient declined 05/25/2024 Do you [...] Questions 1-9 0 03/[address] [facility] - Occupational Stress Questionnaire Answer Date [...] time in the past [address] [facility], were you homeless or living in a alf (including now)? Patient declined 05/25/2024 Sexually Active [...] Office Visit [facility] - Endocrinology [facility] [address] [place] [address] Chapito Garcia MD [address] [address] documented as of this encounter Visit Diagnoses Not on filedocumented in this encounter Care Teams Carpet Yarn Winder Operator Relationship Specialty Start Date End Date Sharon Moya MD [address] [place], [place] [phone] PCP - General Internal Medicine 09/16/21 Chapito Garcia MD [address] [address] Consulting Physician Endocrinology 12/25/21 Radha Mac DPM [address] [phone] Consulting Physician Podiatry 05/26/22 documented as of this encounter
--- OUTSIDE RECORDS SUMMARY | 2024-12-19 16:55 | XMS_ITS | Encounter Summary ---
Author Organization [facility] Address [address] [facility] [place] [address] Phone Care Team Providers Care Professional System Administrator Name Role Phone Sharon Moya MD Primary Care Provider [phone] Chapito Garcia MD Unavailable Radha Mac DPM Unavailable Encounter Details Date Type Department Care Team (Late st Contact Info) Description 06/15/2024 Nursing Facility [facility] [address] [place] [address] Fiorella Horn, RESIDENT CARE ASSOCIATE, INVESTIGATIVE ANALYST [address] [place] [address] Social History Tobacco Use Types Packs/Day Years Used Date Smoking Tobacco: Former Cigarettes 1 12 Smokeless Tobacco: Never Alcohol Use Standard Drinks/Week Comments No 0 (1 standard drink = 0.6 oz pur e alcohol) [facility] Utilities Answer Date Recorded In the past 12 months has [employer] electric, gas, oil, or water company threatened [...] declined 05/25/2024 How often do you attend yarsanism or voodoo serv ices? Patient declined 05/25/2024 Do you belong to any clubs o r organizations such as yarsanism groups, unions, fraternal or athletic groups, or [...] Total Score - Questions 1-9 0 03/2022 [facility] - Occupational Stress Questionnaire Answer Date [...] any time in the past 12 m [facility], were you homeless or living in a mcc (including now)? Patient declined 05/25/2024 Sexually Active [...] Office Visit [facility] - Endocrinology [facility] [address] [place] [address] Chapito Garcia MD [address] [phone] documented as of this encounter Visit Diagnoses Not on filedocumented in this encounter Care Teams Professional System Administrator Relationship Specialty Start Date End Date Sharon Moya MD [address] [place], [place] [phone] PCP - General Internal Medicine 09/16/21 Chapito Garcia MD [address] [phone] Consulting Physician Endocrinology 12/25/21 Radha Mac DPM [address] [phone] Consulting Physician Podiatry 05/26/22 documented as of this encounter
--- OUTSIDE RECORDS SUMMARY | 2024-12-19 16:55 | XMS_ITS | Clinical Summary ---
Author Organization [facility] Address [address] [place] [address] Phone Care Team Providers Care Auto Wheel Alignment Specialist Name Role Phone Sharon Moya Primary Care Provider [phone] Allergies Active Allergy Reactions Criticality Noted Date [...] Diarrhea Low 03/02/2019 Medications ergocalciferol (VITAMIN D-2) 91070 units capsule take 1 capsule by oral [...] 03/11/20 21 Active Blood Glucose Monitoring Suppl (Vringo Verio Flex System) w/Device kit USE TO [...] 300 mcg by mouth daily Active Lancets (Vringo Delica Plus [id number]) misc 4 TIMES A DAY 09/26/19 22 [...] Nasal saline spray (Simply saline, [employer]ed[employer], [place], [place]) 2 second sprays or 2 squeezes into [...] (05/03/2019): Added automatically from request for surgery [id number] Chronic kidney disease, stage 3 (moderate) 12/15 [...] on file Legal Sex Female 8:46 AM [facility] Gender Identity Not on file Sexual [...] Completed 02/13/2021, 08/25/2016, 07/12/[address] [place] [phone] [employer] MEDICARE Care Teams Auto Wheel Alignment Specialist Relationship Specialty Start Date End Date Sharon Moya PCP - General Internal Medicine 11/05/21
--- OUTSIDE RECORDS SUMMARY | 2024-12-19 16:55 | XMS_ITS | Encounter Summary ---
Author Organization [facility] Address [address] [facility] [place] [address] Phone Care Team Providers Care Engineer Steam Name Role Phone Sharon Moya MD Primary Care Provider [phone] Chapito Garcia MD Unavailable Radha Mac DPM Unavailable Encounter Details Date Type Department Care Team (Late st Contact Info) Description 06/21/2024 Nursing Facility [facility] [address] [place], [place] [address] [place] [address] Fiorella Horn, CROOK OPERATOR, ECONOMICS PROFESSOR [address] [place] [address] Social History Tobacco Use Types Packs/Day Years Used Date Smoking Tobacco: Former Cigarettes 1 12 Smokeless Tobacco: Never Alcohol Use Standard Drinks/Week Comments No 0 (1 standard drink = 0.6 oz pur e alcohol) [facility] Utilities Answer Date Recorded In the past 12 months has [employer] electric, gas, oil, or water company threatened [...] How often do you attend scientology or mosque serv ices? Patient declined 05/25/2024 Do you [...] Total Score - Questions 1-9 0 03/2022 [facility] - Occupational Stress Questionnaire Answer [...] any time in the past 12 m [facility], were you homeless or living in a nursing home (including now)? Patient declined 05/25/2024 Sexually [...] Office Visit [facility] - Endocrinology [facility] [address] [place] [address] Chapito Garcia MD [address] [phone] documented as of this encounter Visit Diagnoses Not on filedocumented in this encounter Care Teams Engineer Steam Relationship Specialty Start Date End Date Sharon Moya MD [address] [place], [place] [phone] PCP - General Internal Medicine 09/16/21 Chapito Garcia MD #[address] [phone] Consulting Physician Endocrinology 12/25/21 Radha Mac DPM #[address] [phone] Consulting Physician Podiatry 05/26/22 documented as of this encounter
--- OUTSIDE RECORDS SUMMARY | 2024-12-19 16:55 | XMS_ITS | Clinical Summary ---
Author Organization [facility] Address [address] [place] [address] Phone Care Team Providers Care Pathology Laboratory Aides Teacher Name Role Phone Sharon Moya MD Primary Care Provider [phone] Chapito Garcia MD Unavailable Radha Mac DPM Unavailable [phone] Allergies Active Allergy Reactions Criticality Noted Date [...] 0.4 mg by mouth 2 times daily. Active atorvastatin (LIPITOR) 20 MG Tablet Take 20 mg by mouth daily. Active risperiDONE (RISPERDAL) 0.5 MG Tablet Take 0.5 mg by mouth daily. Active amLODIPine (NORVASC) 5 MG Tablet Take 5 mg by mouth daily. Active levothyroxine (SYNTHROID) 150 MCG Tablet Take 150 mcg by mouth daily. Active Fluticasone-Um eclidin-Vilant (Trelegy Ellipta) 100-62.5-25 MCG/INH AEROSOL POWDER, BREATH ACTIVATED take 1 Puff by inhalation daily. Active hydrOXYzine (ATARAX) 25 MG Tablet Take 25 mg by mouth every 8 hours as needed for Anxiety. Active acetaminophen (TYLENOL) 500 MG Tablet Take 1,000 mg by mouth 3 times daily. Active FAMOTIDINE PO Take 40 mg by mouth daily. Active zinc sulfate (ZINCATE) 220 (50 Zn) MG Capsule Take 220 mg by mouth daily. Active Probiotic Product (PROBIOTIC-10 PO) Take by mouth. Activ e Blood Glucose Monitoring Suppl (Vibrant Media) w/Device KitIndications :Type 2 diabetes mellitus with diabetic polyneuropathy , with long-term current use of insulin ([facility]) 1 Kit by Does not apply route daily. Test blood glucose 3x daily. E11.9, insulin dependent 1 Kit Active Misc. Devices MiscIndication s:Type 2 diabetes mellitus with diabetic polyneuropathy , with long-term current use of insulin ([facility]) Diabetic shoes 1 Each Active fluticasone (FLONASE) 50 MCG/ACT Suspension 1-2 Sprays by Nasal route daily. Use in each nostril as directed. 9.9 mL Active Additional Information Patient taking differently:1-2 [place] NasalDAILY PRN, Allergies, Rhinitis, Use in each nostril as directed., Reported on 09/11/2024 Premarin 0.625 MG/GM Cream 023 Active Continuous Blood Gluc Sensor (Dexcom G7 Sensor) MiscIndication s:Type 2 diabetes mellitus with diabetic polyneuropathy , with long-term current use of insulin ([facility]) 1 Each by Does not apply route every 10 days. Change sensor every 10 days. 9 Each 1 023 Active linaCLOtide (LINZESS) 72 MCG Capsule Take 1 Capsule by mouth daily. 30 Capsule 024 Active alendronate (FOSAMAX) 70 MG Tablet Take [...] for Nausea - 1st line. 10 Tablet 024 Active Glucose Blood (OneTouch Verio) StripIndicatio ns:Type 2 diabetes mellitus with diabetic polyneuropathy , with long-term current use of insulin ([facility]) 4 TIMES A DAY 400 Strip 3 025 Active OneTouch Delica Lancets 33G MiscIndication s:Type 2 diabetes mellitus with diabetic polyneuropathy , with long-term current use of insulin ([facility]) 1 Lancet . by Does not apply route 4 times daily. Test blood glucose 3x daily. E11.42, insulin dependent 400 Lancet . 3 025 Active Insulin Pen Needle (Pen [place]) 32G X 4 MM Misc 1 Pen Needle by Does not apply route 4 times daily. Use to inject insulin 4x daily. 400 Each 3 025 Active Insulin Lispro, 1 Unit Dial, (HumaLOG KwikPen) 100 UNIT/ML Solution Pen-injector INJECT 12 UNITS UNDER THE SKIN BEFORE EACH MEAL + CORRECTIONAL FACTOR INSULIN (MAX 50 UNITS PER DAY) 45 mL 1 025 Active insulin glargine (Lantus SoloStar) 100 UNIT/ML Solution Pen-injector 15 Units by Subcutaneous route nightly. 15 mL 1 025 Active semaglutide, 1 MG/DOSE, (Ozempic, 1 MG/DOSE,) 4 MG/3ML Solution Pen-injector INJECT 1 MG SUBCUTANEOUSLY ONCE A WEEK 9 mL 1 025 Active citalopram (CELEXA) 20 MG Tablet citalopram 20 mg tablet daily 021 Discontinued(E rror) semaglutide, 1 MG/DOSE, (Ozempic, 1 MG/DOSE,) 4 MG/3ML Solution Pen-injector 1 mg by Subcutaneous route once a week. 9 mL 1 024 2024 Discontinued Active Problems Problem Noted Date Diagnosed Date [...] Encounters Date Type Department Care Team Description 12/12/2024 Refill [facility] [address] [place] [address] Chapito Garcia MD Medication Refill 10/30/2024 Refill [facility] - [place] [address] [place] [address] Chapito Garcia MD Medication Refill from Last 3 Months Immunizations Immunization Administration Dates Next Due Covid-19, Mrna, Lnp-s, PF, 1 00 mcg/0.5 mL Dose (Moderna) 11/14/2020,10/17/2020 Covid-19, Mrna, Lnp-s, Pf, 1 00 Mcg Or 50 Mcg Dose (MODERNA) 10/30/2022 Hepatitis B-CpG 04/23/2020 Influenza Vaccine 05/03/2017,04/11/2016,04/11/20 15 Influenza Vaccine greater than 3 yrs 03/06/2022 Influenza Vaccine, MDCK,quad rivalent, pres free 03/05/2022,04/23/2020 Influenza Vaccine, Quadrivalent, PF 04/18/2018 Influenza Vaccine,unspecifie d Formulation 04/12/2019 Influenza, Injectable, Mdck, Preservative Free 03/05/2022,04/23/2020 Influenza, Injectable, Mdck,quadrivalent,with Preservative 07/02/2021 Influenza, Injectable, Quadrivalent 06/11,07/02/2021,04/11/2019,1999 Influenza, Seasonal, Injecta ble, Undefined 03/06/2022 Influenza, Trivalent, Adjuvanted, PF 08/07/2018 Influenza, high-dose, trivalent, PF 05/05/2024,1 07/23/2013,05/23/2014 Influenza,Split Virus,Trivalent,Injectable,PF 05/02/2017 Pneumococcal Vaccine - 13 Valent 08/25/2016 Pneumococcal [...] drink = 0.6 oz pur e alcohol) [facility] Utilities Answer Date Recorded In the [...] declined 05/25/2024 How often do you attend rastafarian or mandaeism serv ices? Patient declined 05/25/2024 Do you belong to any clubs o r organizations such as rastafarian groups, unions, fraternal or athletic groups, or [...] Score - Questions 1-9 0 0 03/2022 [facility] [place] of Occupat ional Health - Occupational Stress [...] in the past 12 m [facility], were you homeless or living in a assisted (including now)? Patient declined 05/25/2024 Sexually Active Control Partners Comments Not Currently Comments No Sex and Gender Information Value Date Recorded Sex Assigned at Female 02/22/2023 8:54 AM CDT Legal Sex Female 7:09 PM CDT Gender Identity Female 02/22/2023 8:54 AM CDT Sexual Orientation Not on file Last Filed Vital Signs Vital Sign Reading Time Taken Comments Blood Pressure 124/72 09/11/2024 10:45 AM BUY BOAT OPERATOR Pulse 103 09/11/2024 10:45 AM BUY BOAT OPERATOR Temperature 36.7 C (98.1 F) 09/11/2024 10:45 AM BUY BOAT OPERATOR Respiratory Rate 22 09/11/2024 10:45 AM BUY BOAT OPERATOR Oxygen Saturation 96% 09/11/2024 10:45 AM BUY BOAT OPERATOR Inhaled Oxygen Concentration - - Weight 99.4 kg (219 lb 3.2 oz) 09/11/2024 10:45 AM BUY BOAT OPERATOR Height 175.3 cm (5' 9) 05/25/2024 10:30 PM BUY BOAT OPERATOR Body Mass Index 32.37 05/25/2024 10:30 PM BUY BOAT OPERATOR Plan of Treatment Upcoming Encounters Date Type Department Care Team (Late st Contact Info) Description 12/21/2024 9:45 AM CDT Office Visit [facility] - [place] [address] [place] [address] Chapito Garcia MD [address] [address] Health Maintenance Due Date Last Done Comments Diabetes: Foot Exam 1959 Hepatitis C Virus (HCV) Screening 1959 Cologuard 2004 Colonoscopy 2004 Colorectal Cancer Screening 2004 Immunochemical Fecal Occult Blood 2004 Zoster Immunization (1 of 2) 2009 Respiratory Syncytial Virus (RSV) Immunization (Adult) (1 - Risk 60-74 years 1-dose series) 2019 Hepatitis B Immunization (2 of 2 - CpG 2-dose series) 05/21/2020 04/23/2020 SARS-COV-2 Immunization ( season) 2024 10/25/2023, 10/30/2022, 09/09/2022, Additional history exists Mammogram 12/09/2024 12/10/2023, 09/10, 04/22/2021 Diabetes: Hemoglobin A1c 03/14/2025 025, 05/23/2024, [...] POCT GLYCOSYLATED HEMOGLOBIN Routine 09/11/2024 10:57 AM BUY BOAT OPERATOR Type 2 diabetes mellitus with diabetic polyneuropathy, with long-term current use of insulin (HCC) CMP (COMPREHENSIVE METABOLIC PANEL) STAT 05/22/2024 9:59 AM BUY BOAT OPERATOR [facility] DILATED EYE EXAM 01/31/2024 1 2:00 AM CDT from Last 3 Months or Most Recently Relevant to Health Maintenance Results * (ABNORMAL) POCT GLYCOSYLATED HEMOGLOBIN (09/11/2024 10:57 AM BUY BOAT OPERATOR) HGB-A1C 8.3(A) 4 - 6 % Blood 09/11/2024 10:5 7 AM BUY BOAT OPERATOR Chapito Garcia MD POINT OF CARE TESTING (MANUAL) F inal Result * (ABNORMAL) Comprehensive Metabolic Panel (Cmp) [id number] (05/22/2024 9:59 AM BUY BOAT OPERATOR) SODIUM 138 136 - 145 mmol/L 05/22/2024 11:21 AM BUY BOAT OPERATOR [facility] POTASSIUM 5.0 3.5 - 5.1 mmol/L 05/22/2024 11:21 AM BUY BOAT OPERATOR [facility] CHLORIDE 105 98 - 107 mmol/L 05/22/2024 11:21 AM [facility] CO2, VENOUS 20(L) 22 - 30 mmol/L 05/22/2024 11:21 AM [facility] ANION GAP 18.0(H) <18.0 mmol/L 05/22/2024 11:21 AM [facility] GLUCOSE 281(H) 70 - 99 mg/dL 05/22/2024 11:21 AM [facility] BUN 34(H) 10 - 20 mg/dL 05/22/2024 11:21 AM [facility] CREATININE, BLOOD 2.57(H) 0.60 - 1.00 mg/dL 05/22/2024 11:21 AM [facility] BUN/CREATININE RATIO 13 12 - 20 ratio 05/22/2024 11:21 AM [facility] TOTAL PROTEIN 6.3 6.3 - 8.2 g/dL 05/22/2024 11:21 AM [facility] ALBUMIN 3.6 3.5 - 5.0 g/dL 05/22/2024 11:21 AM [facility] A/G RATIO 1.3 1.0 - 2.2 05/22/2024 11:21 AM [facility] CALCIUM 9.8 8.7 - 10.5 mg/dL 05/22/2024 11:21 AM [facility] T BILI 0.6 0.2 - 1.2 mg/dL 05/22/2024 11:21 AM [facility] SGOT (AST) 30 5 - 34 U/L 05/22/2024 11:21 AM [facility] SGPT (ALT) 11 0 - 55 U/L 05/22/2024 11:21 AM [facility] ALKALINE PHOSPHATASE 63 40 - 150 U/L 05/22/2024 11:21 AM [facility] GFR, ESTIMATED 20(L) >=60 05/22/2024 11:21 AM [facility] Comment: Creatinine Clearance is the preferred criteria for selecting drug dose adjustments in renally impaired patients. The GFR is provided as additional pertinent clinical information. GFR is reported in mL/min/1.73 sq m. Calculation based on the Chronic Kidney Disease Epidemiology Collaboration (CKD- EPI) equation refit without adjustment for race. GFR, EST. 23(L) >=60 024 11:21 AM BUY BOAT OPERATOR [facility] GFR, EST. NONAFRICAN 19(L) >=60 05/22/2024 11:21 AM BUY BOAT OPERATOR [facility] Blood Venipuncture / Unknown 05/22/2024 9:59 AM BUY BOAT OPERATOR 05/22/2024 10:50 AM BUY BOAT OPERATOR Clarita Riggs MD CHEMISTRY ORDERABLES Final Re sult Performing Organization Address [facility] Co de Phone Number [facility] [address] [place] [address] * DILATED EYE EXAM (01/31/2024 12:00 AM CDT) 01/31/2024 us Provider Scan PROCEDURE/MINOR SURGICAL ORDERAB LES Final Result Performing Organization Address [facility] Co de Phone Number SCAN from Last 3 Months or Most Recently Relevant to Health Maintenance Insurance [address], [place] [address] MEDICAID [place] [facility] Member Subscriber Plan / Payer (Ef fective 2022-Present) Name:Khadra Beltran Relation to Subscriber:Self Name:Khadra Beltran Payer ID:[id number] (NAIC) Type:Not on file Address: [place] [id number] Advance Directives * Full Code (Latest Code [...] 1:21 PM 07/02/2021 1:03 PM Care Teams Pathology Laboratory Aides Teacher Relationship Specialty Start Date End Date Sharon Moya MD [address] [place] [address] PCP - General Internal Medicine 09/16/21 Chapito Garcia MD [address] [address] Consulting Physician Endocrinology 12/25/21 Radha Mac DPM [address] [address] Consulting Physician Podiatry 05/26/22
--- OUTSIDE RECORDS SUMMARY | 2024-12-19 16:56 | XMS_ITS | Encounter Summary ---
Author Organization [facility] Address [address] [facility] [place] [address] Phone Care Team Providers Care Mobile Application Developer Name Role Phone Sharon Moya MD Primary Care Provider [phone] Chapito Garcia MD Unavailable Radha Mac DPM Unavailable Reason for Visit * Reason Comments Medication Refill Encounter Details Date Type Department Care Team (Late st Contact Info) Description 09/16/2023 [facility]ill [facility] [address] [place] [address] Chapito Garcia MD [address] [address] Medication Refill Social History Tobacco [...] Margo Abreu, RN - 09/16/2023 8:12 AM CARDIOLOGY TECHNICIAN Requested Prescriptions Pending Prescriptions Disp Refills OneTouch Verio Strip [Pharmacy Med Name: ONE TOUCH VERIO TEST STRIP] 400 Strip 3 Si TIMES A DAY Next appt: 12/17/2023 IOLOGY TECHNICIAN documented in this encounter Plan of Treatment Upcoming Encounters Date Type Department Care Team (Late st Contact Info) Description 12/21/2024 9:45 AM CDT Office Visit [facility] - [place] [address] [place] [phone] Chapito Garcia MD [address] [phone] documented as of this encounter Visit Diagnoses Diagnosis Type 2 diabetes mellitus with diabetic polyneuropathy, with long-term current use of insulin (HCC) documented in this encounter Additional Health Concerns Infection Onset Date Last Indicated Resolved Time COVID - 19 04/12/2024 04/12/2024 04/12/2024 4:20 PM CDT COVID - 19 05/22/2024 05/22/2024 05/22/2024 1:03 PM CARDIOLOGY TECHNICIAN documented as of this encounter Care Teams Mobile Application Developer Relationship Specialty Start Date End Date Sharon Moya MD [address] [place], [place] [phone] PCP - General Internal Medicine 09/16/21 Chapito Garcia MD [address] [phone] Consulting Physician Endocrinology 12/25/21 Radha Mac DPM [address] [phone] Consulting Physician Podiatry 05/26/22 documented as of this encounter
--- OUTSIDE RECORDS SUMMARY | 2024-12-19 16:56 | XMS_ITS | Referral Summary ---
Author Organization [facility] Address [address] [place] [address] Care Team Providers Care Syrup Maker Cook Name Role Phone Stuart Douglas MD Unavailable [phone] Wu Saleem MD Unavailable [phone] Dominique Peck NP Primary Care Provider Encounters Date Type Department Care Team Description 12/18/2024 3:00 PM CDT - 12/18/2024 11:59 PM CDT Hospital Encounter [address] [address] Idiopathic normal pressure hydrocephalus (HCC) Discharge Disposition: Discharge to home or self care 12/15/[address] [address] Te Jole 12/13/[address] [address] Chayo Jackson 11/30/2024 Telephone [facility] [address] [place], [place] [id number] Radha Graham PA 11/21/2024 8:30 AM CDT Office Visit [facility] [address] [place] [id number] Jerzy Edwards MD Idiopathic normal pressure hydrocephalus (CMS/HCC) (Primary Dx); Tremor 10/30/2024 9:15 AM CDT Lab [address] [address] 10/23/2024 10:05 AM CDT Lab [address] [address] 10/06/2024 9:30 AM CDT Lab [facility] [address] [place] [address] Thrombocytopenia, unspecified 10/06/2024 10:00 AM CDT Office Visit [facility] [address] Medical Office [address] [place] [address] Wu Saleem MD Thrombocytopenia, unspecified (Primary Dx) [...] 1 tablet (150 mcg total) by mouth air gun operator before breakfast Active furosemide (LASIX) 20 mg [...] by mouth daily Active miscellaneous medical supply [facility] Power Scooter 12/25/19 18 Active NEBULIZER AND COMPRESSOR [facility] 04/14/20 21 Active potassium chloride in LR-D5 (dextrose 5% in Lactated Ringer's with potassium chloride 20 mEq/L) 20 mEq/L infusion daily Active underpads pad as directed 03/30/20 18 Active pregabalin (LYRICA) 50 mg capsule 06/06/20 22 Active empty container (BD [employer] Consultant) [facility] 12/10/19 18 Active miconazole 200 mg suppository [...] 06/09/2023 Assessment & Plan (06/09/2023 1:41 PM AUTOMOBILE LOCATOR): Nasal saline spray (Simply saline, Little Remedies, [place], [place]) 2 second sprays or 2 squeezes into [...] (07/30/2022): Added automatically from request for surgery [id number] Assessment & Plan (08/06/2022 8:36 PM AUTOMOBILE LOCATOR): Schedule sigmoidoscopy and treatment of hemorrhoids. Hemorrhoids 07/30/2022 Overview (07/30/2022): Added automatically from request for surgery [id number] Coronary artery disease invo lving [place] coronary artery of [place] heart without angina pectoris 02/25/2022 Coronary artery calcification 02/25/2022 Chronic pain 02/25/2022 Constipation 02/25/2022 Assessment & Plan (08/06/2022 8:43 PM AUTOMOBILE LOCATOR): Chronic constipation. Start Linzess 72 Mcg daily. [...] Nasal saline spray (Simply saline, Little Remedies, [place], [place]) 2 second sprays or 2 squeezes into [...] future Assessment & Plan (06/03/2021 2:53 PM AUTOMOBILE LOCATOR): Nasal saline spray (Simply saline, Little Remedies, [place], [place]) 2 second sprays or 2 squeezes into [...] medications Assessment & Plan (07/15/2020 1:19 PM AUTOMOBILE LOCATOR): Start Nasal saline spray (Simply saline, Little Remedies, [place], [place]) 2 second sprays or 2 squeezes into [...] daily Assessment & Plan (05/21/2020 10:09 AM AUTOMOBILE LOCATOR): Nasal saline spray (Simply saline, Little Remedies, [place], [place]) 2 second sprays or 2 squeezes into [...] 05/21/2020 Assessment & Plan (08/09/2024 8:37 AM AUTOMOBILE LOCATOR): Finish Doxycycline Follow up as needed Assessment & Plan (06/09/2023 1:40 PM AUTOMOBILE LOCATOR): Nasal saline spray (Simply saline, Little Remedies, [place], [place]) 2 second sprays or 2 squeezes into [...] needed Assessment & Plan (06/30/2022 10:04 AM AUTOMOBILE LOCATOR): Nasal saline spray (Simply saline, Little Remedies, [place], [place]) 2 second sprays or 2 squeezes into [...] prescription Assessment & Plan (07/23/2021 12:07 PM AUTOMOBILE LOCATOR): Augmentin with a meal twice daily for 10 days, call if no improvement Continue Atrovent 2 sprays into each nostril while looking down over the sink, do not sniff in or blow nose after use for at least 30 minutes 1-2 times daily Assessment & Plan (05/21/2020 8:56 PM AUTOMOBILE LOCATOR): Nasal saline spray (Simply saline, Little Remedies, [place], [place]) 2 second sprays or 2 squeezes into [...] 07/19/2012 Overview (08/21/2020): Note: S/P MILO BSO 1991 W/HX ENDOMETRIOSIS Anxiety state 02/11/2011 Asthma 02/11/2011 [...] (10/19/2018): Added automatically from request for surgery [id number] Bilateral primary osteoarthritis of knee 02/03/2017 02/09/2022 [...] week 12/26/2020 How often do you attend [facility] or anabaptist services? 1 to 4 times per year 12/26/2020 Do you belong to any clubs o r organizations such as congregation groups, unions, fraternal or athletic groups, or [...] on file Legal Sex Female 12:39 AM AUTOMOBILE LOCATOR Gender Identity Not on file Sexual Orientation [...] Body Mass Index 29.43 08/09/2024 8:22 AM AUTOMOBILE LOCATOR Plan of Treatment Not on file Medical Devices Implanted Type Area Manager Radio Device Identifier Shelf Expiration Date Model / Serial / Lot Shunt-11/05/2014 Implanted:2014 by Jerzy Redman MD (Quantity not on file) Shunt Right: [employer] X [id number] / 0 / [id number] [employer] [id number] Attune Cementless Rotate Platform Knee 7 Baseplate Tibial - [id number] Implanted:Qty: 1 on 11/14/2018 by Stuart Douglas MD at [facility] Right: Knee [employer] 08/11/2027 [id number] / / [id number] [employer] [id number] Attune Cruciate Retain Cementless Knee Right 5 Component Femoral - [id number] Implanted:Qty: 1 on 11/14/2018 by Stuart Douglas MD at [facility] Right: Knee [employer] 02/09/2028 [id number] / / [id number] [employer] [id number] Attune 5mm Cruciate Retaining Rotate Platform Knee 5 Insert - [id number] Implanted:Qty: 1 on 11/14/2018 by Stuart Douglas MD at [facility] Right: Knee [employer] 08/11/2023 [id number] / / [id number] Procedures Procedure Name Priority Date/Time Associated Diagnosis [...] HEPATITIS C ANTIBODY Routine 07/23/2023 9:40 AM AUTOMOBILE LOCATOR Rheumatoid factor positive HEMOGLOBIN A1C Add-On 10/12/2019 [...] BLOOD ORDERABLES Final Resul t [facility] ([place]) [address] [place] [address] * (ABNORMAL) Differential, auto (10/30/2024 9:32 AM [...] 2017. Monocyte pct 14.0 % [facility] ([place]) Comment: Interpretive Data [...] Final Resul t [facility] ([place]) [address] [place] [address] * (ABNORMAL) CBC with auto differential (10/30/2024 [...] RDW CV 14.5 11.1 - 14.9 % [facility] ([place]) RDW SD 52.2(H) 35.7 - 48.1 fL [facility] ([place]) NRBC abs 0.00 0.00 - 0.01 K/cumm [facility] ([place]) Blood 10/30/2024 9:32 AM CDT 10/30/2024 9:54 AM CDT Zelda Malone MD LAB BLOOD ORDERABLES Final Resul t [facility] ([place]) [address] [place] [address] [place] [address] * Valproic acid level, total (10/30/2024 9:32 AM CDT) [facility] Valproic Acid 61.4 50.0 - 100.0 mcg/mL Comment: Interpretive Data Therapeutic range: 50-100 mcg/mL Current interpretive data was last revised on 2014 Blood 10/30/2024 9:32 AM CDT 10/30/2024 9:54 AM CDT Zelda Malone MD LAB BLOOD ORDERABLES Final Resul t Performing Organization Address City/[facility] Co de Phone Number [facility] ([place]) [address] [place] [address] [place] [address] * (ABNORMAL) Comprehensive metabolic panel (10/30/2024 9:32 AM CDT) Pathologist [facility] Sodium 142 135 - 145 mmol/L Potassium, pl 4.9 3.3 - 4.9 mmol/L [facility] ([place]) Chloride 104 97 - 110 mmol/L [facility] ([place]) CO2 25 22 - 32 mmol/L [facility] ([place]) Anion gap 13 2 - 15 mmol/L [facility] ([place]) BUN 49(H) 6 - 25 mg/dL [facility] ([place]) Creatinine 1.65(H) 0.60 - 1.10 mg/dL [facility] ([place]) Glucose 223(H) 70 - 199 mg/dL [...] MD LAB BLOOD ORDERABLES Final Resul t [facility] ([place] [address] [place] [address] * (ABNORMAL) eGFR (10/23/2024 10:17 AM CDT) [...] ORDERABLES Final Res ult Performing Organization Address [facility] Co de Phone Number [facility] [address] [place] [address] [place] [address] * Protein / creatinine ratio, urine, random (10/23/2024 10:17 AM CDT) Protein, ur, quant 5.7 mg/dL Comment: Interpretive Data No reference range established. Current interpretive data was last revised 2018. Creatinine Ur 54.1 mg/dL [facility] ([place]) Comment: Interpretive Data No reference range established. Current interpretive data was last revised 2018. Protein/creatinin e ratio 105.4 0.0 - 180.0 mg/g CR [facility] ([place]) Urine 10/23/2024 10:1 7 AM CDT 10/23/2024 10:34 AM CDT Uche Phan MD LAB URINE ORDERABLES Final Res ult Performing Organization Address City/[facility] Co de Phone Number [facility] ([place]) [address] [facility] [place] [address] * Vitamin D 25 hydroxy (10/23/2024 10:17 AM CDT) Vitamin D 25-OH 40 30 - 80 ng/mL Blood 10/23/2024 10:1 7 AM CDT 10/23/2024 10:32 AM CDT Uche Phan MD LAB BLOOD ORDERABLES Final Res ult Performing Organization Address City/[facility]/ZIP Co de Phone Number [facility] ([place]) [address] [place] [address] * (ABNORMAL) PTH (10/23/2024 10:17 AM CDT) [facility] PTH 72(H) 15 - 65 pg/mL Blood 10/23/2024 10:1 7 AM CDT 10/23/2024 10:32 AM CDT Uche Phan MD LAB BLOOD ORDERABLES Final Res ult Performing Organization Address [facility] de Phone Number [facility] ([place]) [address] [place] [address] * (ABNORMAL) Renal function panel (10/23/2024 10:17 AM CDT) [facility] Sodium 143 135 - 145 mmol/L Potassium, pl 5.1(H) 3.3 - 4.9 mmol/L [facility] ([place]) Chloride 106 97 - 110 mmol/L [facility] ([place]) CO2 22 22 - 32 mmol/L [facility] ([place]) Anion gap 15 2 - 15 mmol/L [facility] ([place]) BUN 45(H) 6 - 25 mg/dL [facility] ([place]) Creatinine 1.60(H) 0.60 - 1.10 mg/dL [facility] ([place]) Glucose 151 70 - 199 mg/dL [facility] ([place]) Comment: Interpretive Data Fasting glucose >/= [...] MD LAB BLOOD ORDERABLES Final Res ult [facility] ([place]) [address] [place] [address] * Differential, auto (10/06/2024 9:15 AM CDT) Neutrophil abs 4.2 1.5 - 6.5 K/cumm Comment:Testing performed by : [facility] [address], Medical Office [facility] [address], [place] [address] Imm gran abs 0.0 0.0 - 0.1 K/cumm [facility] ([place]) Comment:Testing performed by : [facility] [address], Medical Office [facility] [address], [place] [address] Lymphocyte abs 1.5 0.8 - 3.3 K/cumm [facility] ([place]) Comment:Testing performed by : [facility] [address], Medical Office [facility] [address], [place] [address] Monocyte abs 0.7 0.2 - 0.8 K/cumm [facility] ([place]) Comment:Testing performed by : [facility] [address], Medical Office [facility] [address], [place] [address] Eosinophil abs 0.1 0.0 - 0.5 K/cumm [facility] ([place]) Comment:Testing performed by : [facility] [address], Medical Office [facility] [address], [place] [address] Basophil abs 0.0 0.0 - 0.1 K/cumm [facility] ([place]) Comment:Testing performed by : [facility] [address], Medical Office [facility] [address], [place] [address] Neutrophil pct 63.6 % [facility] ([place]) Comment: Interpretive Data Percent cell count reference ranges are not reported, since discordance with absolute values may lead to misinterpretation of CBC data. Current Interpretive Data was last revised on 2022. Testing performed by: [facility] [address], Medical Office [facility] B [facility] [address], [place] [address] Imm gran pct 0.6 % [facility] ([place]) Comment: Interpretive Data Percent cell count reference ranges are not reported, since discordance with absolute values may lead to misinterpretation of CBC data. Current Interpretive Data was last revised on 2022. Testing performed by: [facility] [address], Medical Office [facility] B [facility] [address], [place] [address] Lymphocyte pct 22.8 % [facility] ([place]) Comment: Interpretive Data Percent cell count reference ranges are not reported, since discordance with absolute values may lead to misinterpretation of CBC data. Current Interpretive Data was last revised on 2022. Testing performed by: [facility] [address], Medical Office [facility] [address], [place] [address] Monocyte pct 10.9 % [facility] ([place]) Comment: Interpretive Data Percent cell count reference ranges are not reported, since discordance with absolute values may lead to misinterpretation of CBC data. Current Interpretive Data was last revised on 2022. Testing performed by: [facility] [address], Medical Office [facility] [address], [place] [address] Eosinophil pct 1.5 % [facility] ([place]) Comment: Interpretive Data Percent cell count reference ranges are not reported, since discordance with absolute values may lead to misinterpretation of CBC data. Current Interpretive Data was last revised on 2022. Testing performed by: [facility] [address], Medical Office [facility] B [facility] [address], [place] [address] Basophil pct 0.6 % [facility] ([place]) Comment: Interpretive Data Percent cell count reference ranges are not reported, since discordance with absolute values may lead to misinterpretation of CBC data. Current Interpretive Data was last revised on 2022. Testing performed by: [facility] [address], Medical Office [facility] B [facility] [address], [place] [address] Blood 10/06/2024 9:15 AM CDT 10/06/2024 9:23 AM CDT us Wu Saleem MD LAB BLOOD ORDERABLES Final Re sult [facility] ([place]) [address] Department of Laboratories [place], [place] [address] * (ABNORMAL) CBC with auto differential (10/06/2024 9:15 AM CDT) WBC 6.5 3.8 - 9.9 K/cumm Comment:Testing performed by : [facility] [address], Medical Office [facility] [address], [place] [address] Hgb 13.2 11.9 - 15.5 g/dL [facility] ([place]) Comment:Testing performed by : [facility] [address], Medical Office [facility] B [facility] [address], [place] [address] Hct 41.9 35.6 - 45.5 % [facility] ([place]) Comment:Testing performed by : [facility] [address], Medical Office [facility] B [facility] [address], [place] [address] Plt 126(L) 150 - 400 K/cumm [facility] ([place]) Comment:Testing performed by : [facility] [address], Medical Office [facility] B [facility] [address], [place] [address] MPV 11.3 9.1 - 12.3 fL [facility] ([place]) Comment:Testing performed by : [facility] [address], Medical Office [facility] [address], [place] [address] RBC 4.31 3.90 - 5.20 M/cumm [facility] ([place]) Comment:Testing performed by : [facility] [address], Medical Office [facility] [address], [place] [address] MCV 97.2(H) 81.3 - 96.4 fL [facility] ([place]) Comment:Testing performed by : [facility] [address], Medical Office [facility] B [facility] [address], [place] [address] MCH 30.6 27.1 - 33.3 pg [facility] ([place]) Comment:Testing performed by : [facility] [address], Medical Office [facility] B [facility] [address], [place] [address] MCHC 31.5(L) 32.3 - 35.7 g/dL [facility] ([place]) Comment:Testing performed by : [facility] [address], Medical Office [facility] B [facility] [address], [place] [address] RDW CV 14.6 11.1 - 14.9 % [facility] ([place]) Comment:Testing performed by : [facility] [address], Medical Office [facility] [address], [place] [address] RDW SD 53.2(H) 35.7 - 48.1 fL [facility] ([place]) Comment:Testing performed by : [facility] [address], Medical Office [facility] [address], [place] [address] NRBC abs Not Measured 0.00 - 0.01 K/cumm [facility] ([place]) Comment:Testing performed by : [facility] [address], Medical Office [facility] [address], [place] [address] Blood 10/06/2024 9:15 AM CDT 10/06/2024 9:23 AM CDT us Wu Saleem MD LAB BLOOD ORDERABLES Final Re sult [facility] ([place]) [address] [place] [address] * (ABNORMAL) eGFR (10/06/2024 9:00 AM CDT) [...] was last reviewed 2021. Testing performed by: [place], [address] Blood 10/06/2024 9:00 AM CDT 10/06/2024 9:55 AM CDT us Wu Saleem MD LAB BLOOD ORDERABLES Final Re sult [facility] ([place]) [address] [place] [address] * (ABNORMAL) Comprehensive metabolic panel (10/06/2024 9:00 AM CDT) Sodium 136 135 - 145 mmol/L Comment:Testing performed by : [facility], [place], [address] Potassium, pl 5.3(H) 3.3 - 4.9 mmol/L [facility] ([place]) Comment:Testing performed by : [place], [address] Chloride 101 97 - 110 mmol/L [facility] ([place]) Comment:Testing performed by : [facility], [place], [address] CO2 24 22 - 32 mmol/L [facility] ([place]) Comment:Testing performed by : [facility], [place], [address] Anion gap 11 2 - 15 mmol/L [facility] ([place]) Comment:Testing performed by : [facility], [place], [address] BUN 48(H) 6 - 25 mg/dL [facility] ([place]) Comment:Testing performed by : [facility], [place], [address] Creatinine 1.67(H) 0.60 - 1.10 mg/dL [facility] ([place]) Comment:Testing performed by : [facility], [place], [address] Glucose 380(H) 70 - 199 mg/dL [facility] [...] was last revised 2022. Testing performed by: [facility], [place], [address] Calcium 9.4 8.5 - 10.3 mg/dL [facility] ([place]) Comment:Testing performed by : [facility], [place], [address] Bilirubin, total 0.3 0.1 - 1.2 mg/dL [facility] ([place]) Comment:Testing performed by : [facility], [place], [address] Protein, pl 6.4(L) 6.5 - 8.5 g/dL [facility] ([place]) Comment:Testing performed by : [facility], [place], [address] Albumin 4.1 3.5 - 5.0 g/dL [facility] ([place]) Comment:Testing performed by : [facility], [place], [address] Alk phos 71 40 - 130 Units/L [facility] ([place]) Comment:Testing performed by : [facility], [place], [address] ALT 19 7 - 45 Units/L [facility] ([place]) Comment:Testing performed by : [facility], [facility], [place], [address] AST 18 10 - 45 Units/L [facility] ([place]) Comment:Testing performed by : [facility], [facility], [place], [address] Blood 10/06/2024 9:00 AM CDT 10/06/2024 9:55 AM CDT us Wu Saleem MD LAB BLOOD ORDERABLES Final Re sult [facility] ([place]) [address] [facility] [place] [address] * Screening Mammogram Bilateral W Raul (12/10/2023 [...] with given history of: Osteoporosis Screening. Manager Radio/Model: Meilele (S/N [id number]) CLINICAL INFORMATION: Current height: 64 inches Maximum [...] Jerzy Velazquez M.D. MF: BREANNA Report ID: [id number] Reading Location: [place] [address] Procedure Note Jerzy Velazquez MD - 11/03/2023 EXAM DESCRIPTION: DEXA AXIAL SKELETON BONE DENSITY 1 OR MORE SITES REASON FOR STUDY: 63 y/o year old F with given history of:Osteoporosis Screening. Manager Radio/Model: [employer] Discovery SL (S/N [id number]) CLINICAL INFORMATION: Current height: 64 inches Maximum [...] Jerzy Velazquez M.D. MF: BREANNA Report ID: [id number] Reading Location: [place] [address] Sharon Moya MD IMG DXA PROCEDURES Final Resu lt * Hepatitis C antibody Blood (07/23/2023 9:40 AM AUTOMOBILE LOCATOR) Pathologist [facility] Hep C Ab Nonreactive Nonreactive [facility] Comment:Antibodies to HCV no t detected. Does NOT exclude the possibility of recent exposure to HCV. Current interpretive data was last revised on 22 Blood 07/23/2023 9:40 AM AUTOMOBILE LOCATOR 07/23/2023 10:02 AM AUTOMOBILE LOCATOR Amadeo Gamez MD LAB MICROBIOLOGY - GENERA L ORDERABLES Final Result [facility] [place] [address] * (ABNORMAL) Hemoglobin A1c (10/12/2019 6:42 AM CDT) Hgb A1C 7.7(H) 4.0 - 5.6 % [facility] ([place]) Estimated Average Glucose 174 mg/dL [facility] ([place]) Comment: The ADA recommends reporting an estimated Average Glucose (eAG) with all Hemoglobin A1c results using the equation derived from a study of 507 normal and diabetic adults. Minority populations were underrepresented and children were not included. (Diabetes Care 31:8269-3497, 2008). The eAG is not equivalent to a fasting glucose. Blood specimen (specimen) 10/12/2019 6:42 AM CDT 10/13/2019 11:17 AM CDT Kwaku Menezes MD LAB BLOOD ORDERABLES Final Resul t [facility] ([place]) [address] [facility] [place] [address] * (ABNORMAL) Lipid panel (11/20/2018 12:47 AM [...] MD LAB BLOOD ORDERABLES Final R esult [facility] ([place]) [address] [facility] [place] [address] from Last 3 Months or Most Recently Relevant to Health Maintenance Insurance IDSD [facility] MEDICARE ADVANTAGE [facility] MEDICARE ADVANTAGE [facility] Address: [address] [address] [place] [address] [place] [address] MEDICARE AD[address]AGE [address] DEVINE [address] [place] [phone] [facility] MEDICARE ADVANTAGE [facility] Address: [address] [address] [place] [address] [employer] Advance Directives For more information, please contact: [phone] * Full Code (Latest Code Status on [...] 11:50 AM 11/24/2018 10:15 PM Care Teams Syrup Maker Cook Relationship Specialty Start Date End Date Dominique Peck NP [address] [place] [address] [address] [place] [address] PCP - General Nurse Practitioner 11/25/24 Stuart Douglas MD Surgeon Orthopedic Surgery 11/24/18 Wu Saleem MD [address] [place] [address] [address] [place] [address] Stone Circular Sawyer Hematology and Oncology 08/22/24
--- OUTSIDE RECORDS SUMMARY | 2024-12-19 16:56 | XMS_ITS | Encounter Summary ---
Author Organization [facility] Address [address] [place] [address] Phone Care Team Providers Care Railroad Carman Name Role Phone Anthony Burks MD Primary Care Provider [phone] Gayle Garcia RN Unavailable Unavailable Sharon Moya MD Primary Care Provider [phone] Chapito Garcia MD Unavailable Radha Mac DPM Unavailable [phone] Encounter Details Date Type Department Care Team (Late st Contact Info) Description 07/30/2021 Lab Requisition [facility] Services [address] [place] [phone] Anthony Burks MD [address] [place] [address] COVID-19 Social History Tobacco Use Types [...] COVID-19? No / Unsure 07/31/2021 11:08 AM NURSING HOME AIDE documented as of this encounter Plan of Treatment Upcoming Encounters Date Type Department Care Team (Late st Contact Info) Description 12/21/2024 9:45 AM CDT Office Visit [facility] - Endocrinology [facility] [address] [place] [phone] Chapito Garcia MD [address] [address] documented as of this encounter Procedures Procedure Name Priority Date/Time Associated Diagnosis Comments SARS-COV-2 BY MOLECULAR Routine 07/28/2021 4:00 PM NURSING HOME AIDE COVID-19 documented in this encounter Results * SARS-COV-2 BY MOLECULAR (07/28/2021 4:00 PM NURSING HOME AIDE) SARSCOV2 NOT DETECTED (Referen ce Range for this test is Not Detected ) [facility] THERMOFISHER FAST DX 07/31/2021 1:24 PM NURSING HOME AIDE [facility] Comment:This test was perfor med by a RT-PCR method. Other Non-Phlebotomy Collection / Unknown 07/28/2021 4:00 PM NURSING HOME AIDE 07/30/2021 8:28 AM NURSING HOME AIDE Narrative [facility] - 07/31/2021 1:24 PM NURSING HOME AIDE Authorized Fact Sheets about this test for providers and patients are available at: https://www.fda.gov/medical-devices/xrkibewif-qzvkimnssv-ucsfzwn-devices/emergen cy-us e-authorizations us Anthony Burks MD MICROBIOLOGY - GENERAL ORDERAB LES Final Result [facility] [address] [place] [address], [place] documented in this encounter Visit Diagnoses Diagnosis COVID-19 documented in this encounter Additional Health Concerns Infection Onset Date Last Indicated Resolved Time COVID - 19 07/21/2021 07/28/2021 08/17/2021 12:1 6 AM NURSING HOME AIDE COVID - 19 10/06/2021 10/06/2021 10/26/2021 12:1 6 AM CDT COVID - 19 06/27/2022 06/27/2022 07/07/2022 12:1 6 AM NURSING HOME AIDE Respiratory Rule-Out 06/27/2022 06/27/2022 023 12:16 AM NURSING HOME AIDE COVID - 19 04/12/2024 04/12/2024 04/12/2024 4:20 PM CDT COVID - 19 05/22/2024 05/22/2024 05/22/2024 1:03 PM NURSING HOME AIDE documented as of this encounter Care Teams Railroad Carman Relationship Specialty Start Date End Date Anthony Burks MD [address] [facility] [address] [place] [address] PCP - General Internal Medicine 12/19/19 09/15/21 Sharon Moya MD [address] [facility] [address] [place] [address] PCP - General Internal Medicine 09/16/21 Gayle Garcia, RN [place] Lead Clinical Research Coordinator 08/21/21 02/11/22 Chapito Garcia MD #[address] [phone] Consulting Physician Endocrinology 12/25/21 Radha Mac DPM #[address] [address] Consulting Physician Podiatry 05/26/22 documented as of this encounter
--- OUTSIDE RECORDS SUMMARY | 2024-12-19 16:56 | XMS_ITS | Clinical Summary ---
Author Organization [facility] [employer] [facility] [employer] [facility] Address [address] [place] [address] Phone Care Team Providers Care Heater Helper Forge Name Role Phone Sharon Moya MD Primary Care Provider [phone] Encounters Date Type Department Care Team Description 11/24/2024 Documentation Only [facility] [address] [address] Provider, MD Peggy from Last 3 [...] Description 01/15/2025 2:45 PM CDT Office Visit [facility] [address] [place] [address] Gio Garces MD [address] [place] [address] Dr [address] [place] [address] Health Maintenance Due Date Last Done Comments Breast Cancer Screening 1959 Colorectal Cancer Screening: Annual FOBT 2008 Colorectal Cancer Screening: Colonoscopy 2008 Colorectal Cancer Screening: Sigmoidoscopy 2008 Diabetes: Ophthalmology Exam 11/24/2024 Diabetes: Pedal Pulse Checked 11/24/2024 Diabetes: Sensory Foot Exam 11/24/2024 Diabetes: Visual Foot Exam 11/24/2024 Diabetes: Hemoglobin A1C 12/12/202409/11/2 025, 05/23/2024, 10/12/2019 Influenza Vaccine (Season Ended) 2025 06/25/2023, 03/06/2022, 03/05/2022, Additional history exists Pneumococcal Vaccine: 50+ Years (4 of 4 - PCV20 or PCV21) 02/13/2026 02/13/2021, 08/25/2016, 07/12/1999, Additional history exists Hepatitis B Vaccine Aged Out No longe r eligible based on patient's age to complete this topic Insurance Dr [address] [place] [id number] UHC Medicare Medicaid [place] Care Teams Heater Helper Forge Relationship Specialty Start Date End Date Sharon Moya MD [address] [place] [address] PCP - General Internal Medicine 11/24/24
--- OUTSIDE RECORDS SUMMARY | 2024-12-19 16:56 | XMS_ITS | Continuity of Care Document ---
Author Organization [facility] Address [address] [facility] [address] [place] [address] Phone Care Team Providers Care Feather Washer Name Role Phone Sergo FLORES, Jerzy Unavailable [...] Copied on Encounter Office/outpati ent Visit, [facility], [address] [place] [address] [address], [place], [place], [id number], [place] tel:[phone] [facility] No Information [address] Serg[address] Bertrand. [facility] [place], [place], [id number], [place]. tel:[phone] Referring Provider: Tony Forrester, [address] [place], [address]. tel:[phone] [facility], [address], [place], [place], [id number], tel:[phone] [facility] [place] No Information 8-[address] Cesario Jimenez. [address] [place], [place], [facility], [place]. tel:[phone] Referring Provider: Dante Simmons OD A, [address] [facility] [address], [place], [place], [facility]. tel:[phone] [facility] Eye [facility], [address] [place] [address] [address], [place], [place], [id number], [place] tel:[phone] [facility] [place] No Information 9-201 0 Simmons OD Dante. [address] [facility] , [address], [place], [place], [facility], [place]. tel:[phone] [facility] Eye [facility], [address] [place] [address] [address], [place], [place], [id number], [place] tel:[phone] [facility] No Information 2-[address] 9 Ces[address] Jimenez. [address] [place], [place], [facility], [place]. tel:[phone] Referring Provider: Tony Forrester, [address] [place], [place], [facility]. tel:[phone] Office Consultation [facility], [address] [place] [address] [address], [place], [place], [id number], [place] tel:[phone] SEC [facility] No Information 7-200 8 Ces[address] Jimenez. [address] [place], [place], [facility], [place]. tel:[phone] Referring Provider: Ellis Hearn OD, [address] [facility], [place], [address]. tel:[phone] Family History Family Member Type Diagnosis Age At Onset No Information Payers Payer name Insurance type Covered constitution party ID Authoriza tion(s) Medicare [facility] [id number] Medicaid [employer] [id number] Social History Type Description Quantity Date Captured [...]
--- OUTSIDE RECORDS SUMMARY | 2024-12-19 16:56 | XMS_ITS | Clinical Summary ---
Author Organization [facility] [employer] Address [address] [place] [address] Care Team Providers Care Vehicle Operator Technician Name Role Phone Sharon Moya MD Primary Care Provider Source Comments [facility] [employer],non-owned Affiliates and Associated Physician Practices is amultiple site organization consisting of ambulatory clinics and hospital sitesin [place], [place], [place] and [place]. This disclosure is being madepursuant to the Care Everywhere program and may not contain all information available regarding this patient. Last updated 18.[facility] [employer] Allergies Active Allergy Reactions Criticality Noted Date [...] fluticasone propionate (Flonase) 50 MCG/ACT nasal spray [place] 2 (two) sprays into each nostril once daily 08/15/19 24 Active Trelegy Ellipta 100-62.5-25 MCG/ACT Inhale 1 (one) puff by mouth once daily 09/07/19 24 Active OneTouch Verio test strip 4 TIMES A DAY Activ e hydrOXYzine HCl (Atarax) 25 MG tablet 1 tablet as needed Orally at night for 30 days Active BD Pen Needle Akanksha 2nd Gen 32G X 4 MM [facility] USE 1 PEN NEEDLE TO INJECT INSULIN [...] Normal pressure hydrocephalus 05/23/2024 Hydrocephalus managed with DIRECTOR PHARMACOVIGILANCE shunt 05/23/2024 Overview (05/23/2024): Inserted 2014 Essential hypertension 05/23/2024 Bipolar 1 disorder 05/23/2024 Seizures 05/23/2024 Insomnia 05/23/2024 Chronic obstructive pulmonar y disease with acute lower respiratory infection 05/23/2024 Asthma 05/23/2024 Anxiety 05/23/2024 Sleep apnea 05/23/2024 BMI 30.0-30.9,adult 05/23/2024 Osteoporosis 05/23/2024 Vitamin D deficiency 05/23/2024 Leukocytosis 05/23/2024 Encounters Date Type Department Care Team Description 10/30/2024 Telephone [facility] - Family Medicine [address] [place] [address] Sharon Moya MD Med Question; Medication [...] on file Legal Sex Female 9:33 AM PLANT CONTROL AIDE Gender Identity Not on file Sexual Orientation Not on file Last Filed Vital Signs Vital Sign Reading Time Taken Comments Blood Pressure 132/61 05/25/2024 9:05 PM PLANT CONTROL AIDE Pulse 78 05/25/2024 9:05 PM PLANT CONTROL AIDE Temperature 36.6 C (97.9 F) 05/25/2024 7:47 AM PLANT CONTROL AIDE Respiratory Rate 16 05/25/2024 9:05 PM PLANT CONTROL AIDE Oxygen Saturation 96% 05/25/2024 9:05 PM PLANT CONTROL AIDE Inhaled Oxygen Concentration - - Weight 93.4 kg (206 lb) 05/22/2024 9:15 PM PLANT CONTROL AIDE Height 175.3 cm (5' 9) 05/22/2024 9:15 PM PLANT CONTROL AIDE Body Mass Index 30.42 05/22/2024 9:15 PM PLANT CONTROL AIDE Plan of Treatment Upcoming Encounters Date Type Department Care Team (Late st Contact Info) Description 01/23/2025 2:20 PM CDT Office Visit [facility] - Rheumatology [address] [place] [address] Aracely Gil MD [address] [place] [address] Health Maintenance Due Date Last Done [...] FUNCTION PANEL AM Draw 05/25/2024 5:50 AM PLANT CONTROL AIDE Weakness generalized Fever, unspecified fever cause Urinary tract infection without hematuria, site unspecified HEMOGLOBIN A1C DESMOND 05/23/2024 7:12 AM PLANT CONTROL AIDE from Last 3 Months or Most Recently Relevant to Health Maintenance Results * EYE EXAM (08/14/2024) Anatomical Region Laterality Modality Other 08/14/2024 Narrative 08/14/2024 Ordered by an unspecified provider. us Scanned Document SCANNING ONLY Final Result * (ABNORMAL) RENAL FUNCTION PANEL (05/25/2024 5:50 AM PLANT CONTROL AIDE) BUN 37(H) 7 - 26 mg/dL 05/25/2024 7:00 AM [facility] Creatinine 1.58(H) 0.56 - 0.96 mg/dL 05/25/2024 7:00 AM [facility] Sodium 139 136 - 145 mmol/L 05/25/2024 7:00 AM [facility] Potassium 4.3 3.5 - 4.5 mmol/L 05/25/2024 7:00 AM [facility] Chloride 104 98 - 107 mmol/L 05/25/2024 7:00 AM [facility] CO2 25 22 - 29 mmol/L 05/25/2024 7:00 AM [facility] Glucose 292(H) 70 - 99 mg/dL 05/25/2024 7:00 AM [facility] Albumin 2.3(L) 3.4 - 5.0 g/dL 05/25/2024 7:00 AM [facility] Calcium 8.9 8.4 - 10.2 mg/dL 05/25/2024 7:00 AM [facility] Phosphorus 4.2 2.9 - 5.1 mg/dL 05/25/2024 7:00 AM [facility] Anion Gap 10 6 - 16 05/25/2024 7:00 AM [facility] BUN/Creatinine Ratio 23 7 - 23 05/25/2024 7:00 AM [facility] Osmolality Calculated 307(H) 275 - 295 mOsm/kg 05/25/2024 7:00 AM [facility] eGFR by CKD-EPI 36(L) >=90 mL/min/1.7 3 m2 05/25/2024 7:00 AM [facility] Blood BLOOD SPECIMEN / Unknown Lab Venipuncture / Unknown 05/25/2024 5:50 AM PLANT CONTROL AIDE 05/25/2024 6:32 AM [facility] Earnest Grubbs ANIMAL BIOLOGIST-CLASSROOM TECHNOLOGY COACH LAB - CHEMISTRY ORDERABL ES Final Result [address] [address] [phone] * (ABNORMAL) HEMOGLOBIN A1C (05/23/2024 7:12 AM [facility]) Hemoglobin A1c 7.6(H) <=5.6 % 05/23/2024 12:38 PM [facility] Estimated Average Glucose 171 mg/dL 05/23/2024 12:38 PM [facility] Comment: HbA1c Interpretation: Normal : < 5.7% Pre-diabetes: 5.7-6.4% Diabetes: Equal to or greater than 6.5% Test results diagnostic of diabetes should be repeated for confirmation. Treatment target values recommended by ADA and other clinical organizations should be used to evaluate metabolic control in patients. Reference: [place] Diabetes Association, Standards of Care in Diabetes -2020 In patients 70 years and older consider HbA1c target range of 7.0-7.5% (Reference: Lawrence Gray et al. JAMDA. 2012) The Sebia assay for the measurement of HbA1c is a National Glycohemoglobin Standardization Program (NGSP) certified method. Blood BLOOD SPECIMEN / Unknown Venipuncture / Unknown 05/23/2024 7:12 AM PLANT CONTROL AIDE 05/23/2024 8:05 AM PLANT CONTROL AIDE us Gabino Perez MD LAB - CHEMISTRY ORDERABLES Fin al Result Performing Organization Address City/State/[facility] Co de Phone Number [facility] [address] [place] [address], [place] [phone] from Last 3 Months or Most Recently Relevant to Health Maintenance Insurance MEDICARE MEDICAID - OUT OF STATE MEDICARE UHC MANAGED MEDICARE ADV Advance Directives * Full Code (Latest Code Status on File) Date Activated Date Inactivated Comments 05/23/2024 10:57 AM 05/25/2024 10:23 PM Care Teams Vehicle Operator Technician Relationship Specialty Start Date End Date Sharon Moya MD [address] [facility] [place] [address] PCP - General Internal Medicine 08/05/23
--- OUTSIDE RECORDS SUMMARY | 2024-12-19 16:56 | XMS_ITS | Encounter Summary ---
Author Organization [facility] Healthcare Address [address] [place] [address] Care Team Providers Care Senior Chemist Name Role Phone Stuart Douglas MD Unavailable [phone] Wu Saleem MD Unavailable [phone] Dominique Peck NP Primary Care Provider Reason for Referral * MRI/CAT/PET Scan (Routine) - Closed Specialty Diagnoses / Procedures Referred By Contac t Referred To Contact Radiology Diagnoses Idiopathic normal pressure hydrocephalus (HCC) Procedures CT Head WO Contrast Boni Ashley MD [address] [place] [address] Phone: tel: fax: [address] [address] Referral ID Status Reason Start Date Expiration Date Visits Re quested Visits Authorized [id number] Closed 11/30/2024 12/30/2025 1 1 Reason for Visit * MRI/CAT/PET Scan (Routine) - Closed Specialty Diagnoses / Procedures Referred By Contac t Referred To Contact Radiology Diagnoses Idiopathic normal pressure hydrocephalus (HCC) Procedures CT Head WO Contrast Boni Ashley MD [address] [place] [address] Phone: tel: fax: [address] [phone] Referral ID Status Reason Start Date Expiration Date Visits Re quested Visits Authorized [id number] Closed 11/30/2024 12/30/2025 1 1 Encounter Details Date Type Department Care Team (Latest Contact Info) Description 12/18/2024 3:00 PM CDT - 12/18/2024 11:59 PM CDT Hospital Encounter [facility] [address] [place] [address] Idiopathic normal pressure hydrocephalus (HCC) Discharge Disposition: Discharge to home or self care Social History Tobacco Use Types Packs/Day Years [...] often do you attend chur ch or denominational services? 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 on saturdays amLODIPine (NORVASC) 5 mg tablet 05/01/2021 ascorbic acid (VITAMIN C) 500 mg tablet,chewable Take by mouth aspirin 81 mg enteric coated tabletIndications:p revention of thrombosis Take 1 tablet (81 mg total) by mouth daily atorvastatin (LIPITOR) 20 mg tabletIndications:h yperlipidemia Take 1 tablet (20 mg total) by mouth daily back brace misc as directed 06/01/2017 BD Akanksha 2nd Gen Pen Needle 32 gauge x 32 needle 1 PEN NEEDLE BY DOES NOT APPLY ROUTE 4 TIMES DAILY. USE TO INJECT INSULIN 4X DAILY. 01/31/2022 blood-glucose meter [facility] USE TO CHECK BLOOD SUGAR THREE TIMES DAILY 08/22/2021 busPIRone (BUSPAR) 15 mg tabletIndications:G eneralized Anxiety Disorder Take 1 tablet (15 mg total) by mouth 2 (two) times a day cefdinir (OMNICEF) 300 mg capsule Take 1 capsule (300 mg total) by mouth 2 (two) times a day 12/09/2023 cephalexin (KEFLEX) 500 mg capsule 01/28/2024 cholecalciferol (VITAMIN D-3) 1,000 unit Take 2 tablet/capsule (2,000 Units total) by mouth citalopram (CeleXA) 20 mg tablet 08/12/2021 dexAMETHasone (DECADRON) 6 mg tablet 06/19/2021 dextromethorphan-gu aiFENesin (ROBITUSSIN-DM) 2-20 mg/mL liquid every 4 hours 04/14/2021 diabetic supplies, [place]an. [facility] as directed 01/25/2019 diaper,brief,adult, disposable mis as directed 03/30/2018 diclofenac sodium (VOLTAREN) 1 % gel 12/18/2021 divalproex ER (DEPAKOTE ER) 500 mg 24 hr tabletIndications:B ipolar Disorder Take 2 tablets (1,000 mg total) by mouth 2 (two) times a day empty container (BD Sharps Cell Feed Department Supervisor) [facility] 12/09/2017 famotidine (PEPCID) 40 mg tablet 02/13/2022 fluconazole (DIFLUCAN) 150 mg tablet 02/11/2022 fluticasone propionate (FLONASE) 50 mcg/actuation nasal spray 01/15/2022 fluticasone-umeclid in-vilanter (Trelegy Ellipta) 100-62.5-25 mcg inhalerIndications: Moderate persistent asthma without complication,SOB (shortness of breath) INHALE 1 PUFF BY MOUTH DAILY 60 each 3 11/02/2024 furosemide (LASIX) 20 mg tabletIndications:E tereso,hypertension Take 1 tablet (20 mg total) by mouth daily 30 tablet 1 10/13/2019 glipiZIDE XL (GLUCOTROL XL) 5 mg 24 hr tablet 08/07/2021 HumaLOG 100 unit/mL pen for injection PLEASE SEE ATTACHED FOR DETAILED DIRECTIONS 02/07/2022 hydrocortisone (ANUSOL-HC) 2.5 % rectal cream 12/05/2019 hydroxychloroquine (PLAQUENIL) 200 mg tablet Take 1 tablet (200 mg total) by mouth 2 (two) times a day 01/04/2024 hydrOXYzine (ATARAX) 25 mg tablet 08/01/2021 hydrOXYzine (VISTARIL) 25 mg capsuleIndications: anxiety Take 1 capsule (25 mg total) by mouth nightly Imvexxy Maintenance Pack 4 mcg insert vaginal insert 01/26/2024 insulin aspart (NovoLOG) 100 unit/mL (3 mL) pen for injection Inject 8 Units under the skin 05/25/2024 insulin glargine (LANTUS) 100 unit/mL injectionIndication s:type 2 diabetes mellitus Inject 36 Units under the skin nightly ipratropium (ATROVENT) 21 mcg (0.03 %) nasal sprayIndications:Ch ronic maxillary sinusitis Administer 2 sprays into each nostril every 12 (twelve) hours 90 mL 3 07/29/2023 lancets-blood glucose strips 30 gauge combo pack 4 TIMES A DAY 09/25/2021 levoFLOXacin (LEVAQUIN) 750 mg tablet 02/01/2024 levothyroxine (SYNTHROID) 150 mcg tablet Take 1 tablet (150 mcg total) by mouth gas well drilling manager before breakfast loratadine (CLARITIN) 10 mg tabletIndications:A llergic Rhinitis Take 1 tablet (10 mg total) by mouth daily loratadine 10 mg capsule Take 1 tablet by mouth daily melatonin tabletIndications:s leep aid Take 1 tablet (3 mg total) by mouth nightly as needed for sleep methenamine (HIPREX) 1 gram tablet 11/29/2023 miconazole 200 mg suppository Insert 1 suppository (200 mg total) into the vagina nightly 05/17/2023 [facility] as directed 12/09/2017 [facility] Power Scooter 12/24/2017 NEBULIZER AND COMPRESSOR [facility] [place] 04/14/2021 nitrofurantoin monohydrate (MACROBID) 100 mg capsule Take 1 capsule (100 mg total) by mouth 2 (two) times a day 10 capsule 10/14/2023 nystatin powder Apply topically 2 (two) times a day 07/01/2023 ondansetron ODT (ZOFRAN-ODT) 4 mg disintegrating tablet Take 1 tablet (4 mg total) by mouth every 6 (six) hours as needed 06/19/2021 OneTouch Delica Plus Lancet 30 gauge [facility] 4 TIMES A DAY 12/17/2021 OneTouch Verio Reflect Meter [facility] USE DIRECTED TO TEST BLOOD GLUCOSE 3 TIMES DAILY 01/22/2022 OneTouch Verio test strips strip 02/23/2022 Ozempic 0.25 mg or 0.5 mg (2 mg/3 mL) pen injector injection Inject 0.75 mL (0.5 mg total) as directed once a week pen needle, diabetic 32 gauge x 16 needle as directed polyethylene glycol (MIRALAX) 17 gram packet 12/25/2019 potassium chloride in LR-D5 (dextrose 5% in Lactated Ringer's with potassium chloride 20 mEq/L) 20 mEq/L infusion daily pregabalin (LYRICA) 50 mg capsule 06/06/2022 Premarin vaginal cream 12/18/2021 primidone (MYSOLINE) 50 mg tablet 1/4 tab qhs for 1 week, 1/2 tab po qhs for 1 week, 1/4 tab qam and 1/2 tab qhs for 1 week, 1/2 tab po bid for 1 week, 1/2 tab qam, 1 tab qhs for 1 week, then 1 tab bid 120 tablet 3 11/21/2024 Restasis 0.05 % ophthalmic emulsion 02/18/2022 risperiDONE (RisperDAL) 0.5 mg tabletIndications:D epression associated with Bipolar Disorder Take 1 tablet (0.5 mg total) by mouth nightly senna (SENOKOT) 8.6 mg tablet Take 1 tablet by mouth nightly sulfaSALAzine (AZULFIDINE) 500 mg tablet Take 1 tablet (500 mg total) by mouth daily 03/02/2024 tamsulosin (FLOMAX) 0.4 mg extended release capsuleIndications: Urolithiasis 1 capsule (0.4 mg total) 2 (two) times a day terconazole (TERAZOL 3) 0.8 % vaginal cream 01/21/2024 terconazole (TERAZOL 7) 0.4 % vaginal cream 01/03/2024 trimethoprim (TRIMPEX) 100 mg tablet daily 05/23/2020 underpads pad as directed 03/30/2018 wheelchair device as directed 10/31/2018 Yuvafem 10 mcg tablet 01/11/2024 zinc 50 mg tablet Take 1 tablet by mouth daily documented as of this encounter Discharge Disposition Disposition Code Departure Means Destination Discharge to home or self care documented in this encounter Plan of Treatment Pending Results Name Type Priority Associated Diagnoses Date /Time CT Head WO Contrast Imaging Schedule Routine, Read Routine (OP Routine) Idiopathic normal pressure hydrocephalus (HCC) 12/18/2024 3:42 PM CDT Scheduled Orders Name Type Priority Associated Diagnoses Orde r Schedule CT Head WO Contrast Imaging Schedule Routine, Read Routine (OP Routine) Idiopathic normal pressure hydrocephalus (HCC) Once for 1 Occurrences starting 12/18/2024 until 12/18/2024 documented as of this encounter Visit Diagnoses Diagnosis Idiopathic normal pressure hydrocephalus (HCC) Idiopathic normal pressure hydrocephalus (INPH) documented in this encounter Care Teams Senior Chemist Relationship Specialty Start Date End Date Dominique Peck, JARETT [address] ABDIFATAH Pollard [facility] [address] [place] [address] PCP - General Nurse Practitioner 11/25/24 Stuart Douglas MD Surgeon Orthopedic Surgery 11/24/18 Wu Saleem MD [address] [place] [address] Import Coordination And Production Head Hematology and Oncology 08/22/24 documented as of this encounter
--- OUTSIDE RECORDS SUMMARY | 2024-12-19 16:56 | XMS_ITS | Continuity of Care Document ---
Author Organization [facility] Address [address] [place] [address] [place] [address] Phone Care Team Providers Care Water Treatment Plant Supervisor Name Role Phone Thad Villatoro MD Unavailable [...] Diagnoses Date Provider Providers Copied on Encounter [facility] [place], [address], [place], [place], [address], [place] tel:[phone] [facility] [place] No Information Irving Oneil. [address], [place], [place], [address] , [place]. tel:[phone] [facility] [place], [address], [place], [place], [address], [place] [phone] [facility] [place] No Information 7 Irving Oneil. [address], [place], [place], [address] , [place]. tel:[phone] OFFICE/OUTPA TIENT VISIT, [facility], [address], [place], [place], [address], [place] tel:[phone] [facility] [place] osteoporosis1 (chief complaint)HLP (chief complaint)kne e pian1 (chief complaint)DM (chief complaint)all ergy1 (chief complaint) HyperlipidemiaOs teoporosisType 2 diabetes mellitus without complicationsChr onic pain syndrome Irving Oneil. [address], [place], [place], [address] , [place]. tel:[phone] Referring Provider: Giovani Manning A, [place], [place], [address]. tel:[phone] OFFICE/OUTPA TIENT VISIT, [facility], [address], [place], [place], [address], [place] tel:[phone] [facility] [place] DM (chief complaint)HLP (chief complaint)ramon al funciton (chief complaint) HyperlipidemiaTy pe 2 diabetes mellitus without complicationsRen al disease Irving Duran [address], [place], [place], [address] , [place]. tel:[phone] Referring Provider: Giovani Manning [address], [place], [place], [address]. tel:[phone] OFFICE/OUTPA TIENT VISIT, [facility], [address], [place], [place], [address], [place] tel:[phone] [facility] [place] GERD1 (chief complaint)ost eoporosis1 (chief complaint)kne e pain1 (chief complaint)hyp othyroidism (chief complaint) HypothyroidismGE RD w/o esophagitisOsteo porosisChronic pain syndrome Irving Duran [address], [place], [place], [address] , [place]. tel:[phone] Referring Provider: [facility]ad [facility]atoro [facility] [place], [place], [address]. tel:[phone] [facility] [place], [facility] [address] [place], [address], tel:[phone] [facility] [place] No Information Irving Duran [address], [place], [place], [address] , [place]. tel:[phone] OFFICE/OUTPA TIENT VISIT, [facility], [address], [place], [place], [address], [place] tel:[phone] [facility] [place] hydrocephlus (chief complaint)DM1 (chief complaint)hyp othyroidism1 (chief complaint)ost eoporosis1 (chief complaint)chr onic pain1 (chief complaint) Type 2 diabetes mellitus without complicationsGER D w/o esophagitisHypot hyroidismOsteopo rosis Irving Duran [address], [place], [place], [address] , [place]. tel:[phone] Referring Provider: Giovani Manning [facility] A, [place], [place], [address]. tel:[phone] Family History Family Member Type Diagnosis Age [...] produce any other information. Pt was in senior living and she was released recenlty. Pt was in senior living for two years. DM1 Pt has DM. [...]
--- OUTSIDE RECORDS SUMMARY | 2024-12-19 16:56 | XMS_ITS | Continuity of Care Document ---
Author Organization formerly [facility] Address [address] [place] [address] Phone Care Team Providers Care Beef Cattle Specialist Name Role Phone Sergo FLORES, Jerzy Unavailable [...] Copied on Encounter Office/outpati ent Visit, [facility], [address] [place] [address] [address], [place], [place], [address], [place] tel:[phone] [facility] No Information [address] Sergo Bertrand. [facility] [place], [place], [address], [place]. tel:[phone] Referring Provider: Tony Forrester, [address] [place], [address]. tel:[phone] [facility], [address], [place], [place], [address], tel:[phone] [facility] [place] No Information 8-201 0 Cesario Jimenez. [address] [place], [place], [facility], [place]. tel:[phone] Referring Provider: Dante Simmons OD A, [address] [facility] [address], [place], [place], [facility]. tel:[phone] [facility], [address] [place] [address] [address], [place], [place], [address], [place] tel:[phone] [facility] [place] No Information 9-201 0 Simmons OD Dante. [address] [facility] , [address], [place], [place], [facility], [place]. tel:[phone] [facility], [address] [place] [address] [address], [place], [place], [address], [place] tel:[phone] SEC [facility] No Information 2-200 9 Cesario Jimenez. [address] [place], [place], [facility], [place]. tel:[phone] Referring Provider: Tony Forrester, [address] [place], [place], [facility]. tel:[phone] Office Consultation [facility], [address] [place] [address] [address], [place], [place], [address], [place] tel:[phone] SEC [facility] No Information 7-200 8 Cesario Jimenez. [address] [place], [place], [facility], [place]. tel:[phone] Referring Provider: Ellis Hearn OD, [address] [facility], [place], [address]. tel:[phone] Family History Family Member Type Diagnosis Age At Onset No Information Payers Payer name Insurance type Covered republican ID Authoriza tion(s) Medicare [facility] [id number] Medicaid [facility] [id number] Social History Type Description Quantity Date Captured [...]
--- OUTSIDE RECORDS SUMMARY | 2024-12-19 16:56 | XMS_ITS | Continuity of Care Document ---
Author Organization [facility] Address [address] [place] [address] [place] [address] Phone Care Team Providers Care On Awake Counselor Name Role Phone Thad Villatoro MD Unavailable [...] Diagnoses Date Provider Providers Copied on Encounter [facility] [place], [address], [place], [place], [address], [place] tel:[phone] [facility] [place] No Information Irving Oneil. [address], [place], [place], [address] , [place]. tel:[phone] [facility] [place], [address], [place], [place], [address], [place] [phone] [facility] [place] No Information Irving Oneil. [address], [place], [place], [address] , [place]. tel:[phone] OFFICE/OUTPA TIENT VISIT, [facility], [address], [place], [place], [address], [place] tel:[phone] [facility] [place] osteoporosis1 (chief complaint)HLP (chief complaint)kne e pian1 (chief complaint)DM (chief complaint)all ergy1 (chief complaint) HyperlipidemiaOs teoporosisType 2 diabetes mellitus without complicationsChr onic pain syndrome Irving Oneil. [address], [place], [place], [address] , [place]. tel:[phone] Referring Provider: Giovani Manning [address], [place], [place], [address]. tel:[phone] OFFICE/OUTPA TIENT VISIT, [facility], [address], [place], [place], [address], [place] tel:[phone] [facility] [place] DM (chief complaint)HLP (chief complaint)ramon al funciton (chief complaint) HyperlipidemiaTy pe 2 diabetes mellitus without complicationsRen al disease Irving Duran [address], [place], [place], [address] , [place]. tel:[phone] Referring Provider: [address], [place], [place], [address]. tel:[phone] OFFICE/OUTPA TIENT VISIT, [facility], [address], [place], [place], [address], [place] tel:[phone] [facility] [place] GERD1 (chief complaint)ost eoporosis1 (chief complaint)kne e pain1 (chief complaint)hyp othyroidism (chief complaint) HypothyroidismGE RD w/o esophagitisOsteo porosisChronic pain syndrome Irving Duran [address], [place], [place], [address] , [place]. tel:[phone] Referring Provider: Thad Villatoro [address] [facility] [address], [place], [place], [address]. tel:[phone] [facility] [place], [facility] [address] [place], [address], tel:[phone] [facility] [place] No Information Irving Duran [address], [place], [place], [address] , [place]. tel:[phone] OFFICE/OUTPA TIENT VISIT, [facility], [address], [place], [place], [address], [place] tel:[phone] [facility] [place] hydrocephlus (chief complaint)DM1 (chief complaint)hyp othyroidism1 (chief complaint)ost eoporosis1 (chief complaint)chr onic pain1 (chief complaint) Type 2 diabetes mellitus without complicationsGER D w/o esophagitisHypot hyroidismOsteopo rosis Irving Duran [address], [place], [place], [address] , [place]. tel:[phone] Referring Provider: Giovani Manning [facility] A, [place], [place], [address]. tel:[phone] Family History Family Member Type Diagnosis Age At Onset Brother Problem (finding) Diabetes mellitus type 2 Father Problem (finding) Unknown Mother Problem (finding) unknwon Payers Payer name Insurance type Covered democrat ID Authoriza tion(s) No Information Social History [...] Date Complaint History Of Prese nt Illness knee pian1 Pt has chronic b ilateral knee pain. pt has arthritis. Pt has appointment with ortho in two weeks. Pt denie any knee swelling. Pt also has low back pain. Pt denies any wrosening pain, any loss of bladder control. Pt has sciatica and bilateral leg weakness and numbness chronically. Pt wants to see back specialist allergy1 Pt has seasonal allergy. Pt has sinus congestion and sneezing and itchg eyes. osteoporosis1 Pt has ostoeporo sis. Pt takes calcium and D and fosamax. Pt has not done the bone density yet Pt denies any fracture. DM Pt takes lantus 30 units and also humalog. Pt states that her BGI around 110s now. Pt denies any hypoglycemia. HLP Pt has HLP Pt ta kes pravastatin. Pt denies any myalgia. Pt is on low fat and low carb diet renal funciton Pt has mild low renal function Pt has good urine output HLP Pt has HLP Pt us ed to take statin but not anymore. Pt is not very good with diet DM Pt has DM. Pt ta kes lantus and humalog premeal daily. Pt states that her BG is around 250s. Her A1c is 7.6. Pt denies any polyuria, polydipisia. Pt takse 25 units lantus and also 5 units humalog premeal. Pt denies any hypoglycemia hypothyroidism pt takes synthro id. Pt has not done lab yet to check level. Pt denies any headache or chest pain knee pain1 Pt has chronic b ilateral knee pain. Pt takes ultram for pain. Pt wants to see ortho. Pt denies any injury. Pt walks with walker osteoporosis1 Pt has osteoporo sis. Pt takes calcium and D and also fosamas. Pt denies any fracture Pt denies any jaw pain GERD1 Pt has chronic G ERD Pt takes protonix and doing ok pt denies any abd pain or any GERD symptoms. chronic pain1 Pt has chronic k nee and low back pain. Pt denies any loss of bladder control. Pt denies any worsening pain. Pt takes ultram for emmanuel PRN. Pt doing ok Pt denies any loss of bladdder control osteoporosis1 Pt has osteoporo sis. Pt takes fosamax and calcium and D. Pt denies any h/o fracture hypothyroidism1 Pt has hypothyro idism. Pt takes synthroid 125 mcg daily. DM1 Pt has DM. Pt ta kes lantus and also humalog. Pt states that her BG is around 150-170s. Pt denies any numbness hydrocephlus Pt states that paris martinez was in the hospital and she had shunt placed in her brain due to fluid in her brain. Pt is very poor historian and she canot produce any other information. Pt was in long term and she was released recenlty. Pt was in long term for two years. Instructions Date Instruction Additional Infor liz Prescribed [...]
== END 2024-12-19 16:02 | disposition home or self-care (01) ==
PROVIDERS: Emergency Provider Nurse Practitioner Family
DX: J06.9 Acute upper respiratory infection, unspecified (principal); Z87.891 Personal history of nicotine dependence; I12.0 Hypertensive chronic kidney disease with stage 5 chronic kidney disease or end stage renal disease; E11.22 Type 2 diabetes mellitus with diabetic chronic kidney disease; N18.5 Chronic kidney disease, stage 5; Z79.4 Long term (current) use of insulin; G40.909 Epilepsy, unspecified, not intractable, without status epilepticus; J44.9 Chronic obstructive pulmonary disease, unspecified; E03.9 Hypothyroidism, unspecified; Z98.2 Presence of cerebrospinal fluid drainage device; Z96.651 Presence of right artificial knee joint; F41.9 Anxiety disorder, unspecified; F32.A Depression, unspecified
CPT/HCPCS: 99213; G0463

== ENCOUNTER 2024-12-26 19:05 | Emergency (ER) | payer MEDICARE, MEDICAID, SELFPAY ==
--- OUTSIDE RECORDS SUMMARY | 2024-12-26 19:08 | XMS_ITS | Encounter Summary ---
Author Organization [facility] Address [address] [facility] [place] [address] Phone Care Team Providers Care Knitting Machine Operator Name Role Phone [place] Moya MD Primary Care Provider Chapito Garcia MD Unavailable Radha Mac DPM Unavailable Encounter Details Date Type Department Care Team (Late st Contact Info) Description 05/30/2024 Nursing Facility [facility] [address] [place], [place] [address] [place] [address] Fiorella Horn, SALESPERSON FLYING SQUAD, BOTTOMING ROOM INSPECTOR [address] [place] [address] Social History Tobacco Use Types Packs/Day Years Used Date Smoking Tobacco: Former Cigarettes 1 12 Smokeless Tobacco: Never Alcohol Use Standard Drinks/Week Comments No 0 (1 standard drink = 0.6 oz pur e alcohol) [facility] Utilities Answer Date Recorded In the past 12 months has [employer] electric, gas, oil, or water company [...] How often do you attend nondenominational or jewish serv ices? Patient declined 05/25/2024 Do you [...] Total Score - Questions 1-9 0 03[facility] - Occupational Stress Questionnaire Answer Date [...] any time in the past 12 m [facility], were you homeless or living in [...] Care Team (Late st Contact Info) Description 03/29/2025 9:45 AM CDT Office Visit [facility] - Endocrinology [facility] [address] [place] [address] Chapito Garcia MD [address] [phone] documented as of this encounter Visit Diagnoses Not on filedocumented in this encounter Care Teams Knitting Machine Operator Relationship Specialty Start Date End Date [place] Moya MD [address] [place], [place] [id number] PCP - General Internal Medicine 09/16/21 Chapito Garcia MD [address] [phone] Consulting Physician Endocrinology 12/25/21 Radha Mac DPM [address] [phone] Consulting Physician Podiatry 05/26/22 documented as of this encounter
--- OUTSIDE RECORDS SUMMARY | 2024-12-26 19:08 | XMS_ITS | Encounter Summary ---
Author Organization [facility] Address [address] [place] [address] Phone Care Team Providers Care Tile Grader Name Role Phone [place] Moya MD Primary Care Provider [phone] Chapito Garcia MD Unavailable Radha Mac DPM Unavailable [phone] Encounter Details Date Type Department Care Team (Late st Contact Info) Description 07/18/2024 Nursing Facility [facility] [address] [place] [address] Fiorella Horn, FIG BAR MACHINE OPERATOR, MANUFACTURING MACHINE OPERATOR [address] [place] [address] Social History Tobacco Use Types Packs/Day Years Used Date Smoking Tobacco: Former Cigarettes 1 12 Smokeless Tobacco: Never Alcohol Use Standard Drinks/Week Comments No 0 (1 standard drink = 0.6 oz pur e alcohol) [facility] Utilities Answer Date Recorded In the past 12 months has [employer] electric, gas, oil, or water company threatened [...] declined 05/25/2024 How often do you attend taoist or caodaism serv ices? Patient declined 05/25/2024 Do you belong to any clubs o r organizations such as taoist groups, unions, fraternal or athletic groups, or [...] Questions 1-9 0 03/2022 [facility] - Occupational Stress Questionnaire Answer Date [...] time in the past [address] [facility], were you homeless or living in a [...] Office Visit [facility] - Endocrinology [facility] [address] [place] [address] Chapito Garcia MD [address] [phone] documented as of this encounter Visit Diagnoses Not on filedocumented in this encounter Care Teams Tile Grader Relationship Specialty Start Date End Date [place] Moya MD [address] [place], [place] [id number] PCP - General Internal Medicine 09/16/21 Chapito Garcia MD [address] [phone] Consulting Physician Endocrinology 12/25/21 Radha Mac DPM [address] [phone] Consulting Physician Podiatry 05/26/22 documented as of this encounter
--- OUTSIDE RECORDS SUMMARY | 2024-12-26 19:08 | XMS_ITS | Continuity of Care Document ---
Author Organization [facility] Address [address] [place] [address] [place] [address] Phone Care Team Providers Care Integration Analyst Name Role Phone Thad Villatoro MD Unavailable [...] Diagnoses Date Provider Providers Copied on Encounter [facility], [address], [place], [place], [id number], [place] tel:[phone] [facility] No Information Irving Oneil. [address], [address], [place], [place], [address] , [place]. tel:[phone] [facility], [address], [place], [place], [address], [place] [phone] [facility] No Information Irving Oneil. [address], [address], [place], [place], [address] , [place]. tel:[phone] OFFICE/OUTPA TIENT VISIT, [facility], [address], [place], [place], [address], [place] tel:[phone] [facility] osteoporosis1 (chief complaint)HLP (chief complaint)kne e pian1 (chief complaint)DM (chief complaint)all ergy1 (chief complaint) HyperlipidemiaOs teoporosisType 2 diabetes mellitus without complicationsChr onic pain syndrome Irving Oneil. [address], [address], [place], [place], [address] , [place]. tel:[phone] Referring Provider: Giovani Manning [address], [place], [place], [address]. tel:[phone] OFFICE/OUTPA TIENT VISIT, [facility], [address], [place], [place], [address], [place] tel:[phone] [facility] DM (chief complaint)HLP (chief complaint)ramon al funciton (chief complaint) HyperlipidemiaTy pe 2 diabetes mellitus without complicationsRen al disease Irving Duran [address], [address], [place], [place], [address] , [place]. tel:[phone] Referring Provider: Giovani [address], [place], [place], [address]. tel:[phone] OFFICE/OUTPA TIENT VISIT, [facility], [address], [place], [place], [address], [place] tel:[phone] [facility] GERD1 (chief complaint)ost eoporosis1 (chief complaint)kne e pain1 (chief complaint)hyp othyroidism (chief complaint) HypothyroidismGE RD w/o esophagitisOsteo porosisChronic pain syndrome Irving Duran [address], [address], [place], [place], [address] , [place]. tel:[phone] Referring Provider: Thad Villatoro [address] [facility] [address], [place], [place], [address]. tel:[phone] [facility], [facility] [address] [place], [place], [address], tel:[phone] [facility] No Information Irving Duran [address], [address], [place], [place], [address] , [place]. tel:[phone] OFFICE/OUTPA TIENT VISIT, [facility], [address], [place], [place], [address], [place] tel:[phone] [facility] hydrocephlus (chief complaint)DM1 (chief complaint)hyp othyroidism1 (chief complaint)ost eoporosis1 (chief complaint)chr onic pain1 (chief complaint) Type 2 diabetes mellitus without complicationsGER D w/o esophagitisHypot hyroidismOsteopo rosis Irving Duran [address], [address], [place], [place], [address] , [place]. tel:[phone] Referring Provider: Giovani Manning [facility] [address], [place], [place], [address]. tel:[phone] Family History Family Member Type Diagnosis Age At Onset Brother Problem (finding) Diabetes mellitus type 2 Father Problem (finding) Unknown Mother Problem (finding) unknwon Payers Payer name Insurance type Covered libertarian ID Authoriza tion(s) No Information Social History [...] produce any other information. Pt was in group home and she was released recenlty. Pt was in group home for two years. Instructions Date Instruction Additional [...]
--- OUTSIDE RECORDS SUMMARY | 2024-12-26 19:08 | XMS_ITS | Encounter Summary ---
Author Organization [facility] Address [address] [facility] [place] [address] Phone Care Team Providers Care Box Printer Name Role Phone [place] Moya MD Primary Care Provider Chapito Garcia MD Unavailable Radha Mac DPM Unavailable Encounter Details Date Type Department Care Team (Late st Contact Info) Description 06/15/2024 Nursing Facility [facility] [address] [address] Fiorella Horn, BRANCH LENDING OFFICER, VIDEOTAPE SALES REPRESENTATIVE [address] [place] [address] Social History Tobacco Use Types Packs/Day Years Used Date Smoking Tobacco: Former Cigarettes 1 12 Smokeless Tobacco: Never Alcohol Use Standard Drinks/Week Comments No 0 (1 standard drink = 0.6 oz pur e alcohol) [facility] Utilities Answer Date Recorded In the past 12 months has [employer] electric, gas, oil, or water company threatened [...] declined 05/25/2024 How often do you attend anabaptist or religion serv ices? Patient declined 05/25/2024 Do you belong to any clubs o r organizations such as anabaptist groups, unions, fraternal or athletic groups, or [...] Questions 1-9 0 03/[facility] - Occupational Stress Questionnaire Answer Date Recorded [...] any time in the past 12 m [facility], were you homeless or living in a retirement (including now)? Patient declined 05/25/2024 Sexually Active [...] Office Visit [facility] - Endocrinology [facility] [address] [place] [address] Chapito Garcia MD [address] [phone] documented as of this encounter Visit Diagnoses Not on filedocumented in this encounter Care Teams Box Printer Relationship Specialty Start Date End Date [place] Moya MD [address] [place], [place] [id number] PCP - General Internal Medicine 09/16/21 Chapito Garcia MD [address] [phone] Consulting Physician Endocrinology 12/25/21 Radha Mac DPM [address] [phone] Consulting Physician Podiatry 05/26/22 documented as of this encounter
--- OUTSIDE RECORDS SUMMARY | 2024-12-26 19:08 | XMS_ITS | Data Portability ---
Author Organization [facility] Isidoro Shea Address [address] [place] [address] Care Team Providers Care Service Order Expediter Name Role Phone NONA JACKSON Medicare Contact Specialist JEMMA CAMARILLO Primary Care Provider [phone] Assessment No assessment recorded. Plan of Treatment Reminders Order Date Submit Date Provider Last Modified By Organization Details Last Modified Time Details Appointments ANY 15 2024 10:45A M JOSE FELDMANP-BC Not available Not available Not available Lab fecal occult blood, immunoa ssay, stool 2024 025 [email or web address] [facility], [address] [place] [address], [address], 11/29/2024 15:19:16 Referral None recorde d. Procedures None recorde d. Surgeries None recorde d. Imaging MAMMO, screeni ng, digital , bilater al 2024 025 [facility], [address] [place] [address] [place], [address], 12/12/2024 11:09:51 XR, chest, 2 view 2024 025 [facility], [address] [place] [address] [place], [address], 10/05/2024 08:43:48 Medication Orders tercona zole 0.4 % vaginal cream 2024 025 [facility][id number], [address] [place], [address], 11/24/2024 11:34:05 loratad ine 5 mg disinte grating tablet 2024 025 [id number], [address] [place], [address], 09/22/2024 12:23:31 hydroco rtisone 2.5 % topical cream with perinea l applica tor 2024 025 [id number], [address] [place], [address], 09/22/2024 12:23:31 Patient TargetsNo targets recorded. Patient Instructions Encounter Date Encounter Id Patient Instructions Last Modified By Organization Details Last Modified Time 07/24/2024 [id number] f/u in 2 month nsuthan Not available 07/24/2024 15:48:23 09/22/2024 [id number] pneumococcal polysaccharide vaccine: care instructions Not available [...] Prevnar 20: Due at 65. - Tdap/Td ([id number]): 02/27/17 - Zoster (>60):Due at 60. - COVID-19: 09/09/22, 09/18/21, 11/14/20, 11/05/20, 10/17/20 -Labs ordered this visit: n/a Females: Pap smear: N/A Mammogram: 12/10/23 DEXA: 11/03/23 [email or web address] Not available 10/15/2024 15:38:40 Reason for Referral None Reported. Results Created Date Observation Date Name Description Value Unit Range Abnormal Flag Note LastModifiedBy Organization Detail LastModifiedTime 09/12/1909/11/2024 Hemog lobin A1c/H emogl obin. total in Blood hemoglobin A1C/hemoglob in.total in blood 8.3 % low: 4%high : 6% abnormal HGB-A 1C 8.3 (A) 4 - 6 % Not Available Not Available 09/19/2024 05:06:30 09/12/1909/11/2024 Hemog lobin A1c/H emogl obin. total in Blood interpretati on and review of laboratory results Abnorm al Not Available Not Available 05:06:30 12/22/1912/21/2024 Hemog lobin A1c/H emogl obin. total in Blood hemoglobin A1C/hemoglob in.total in blood 8 % low: 4%high : 6% abnormal Not Available Not Available 12/22/2024 03:54:52 12/22/1912/21/2024 Hemog lobin A1c/H emogl obin. total in Blood interpretati on and review of laboratory results Abnorm al Not Available Not Available 03:54:52 Result Notes None recorded. Problems Name Problem SNOMED Code Status Onset Date Resolution Date Notes Provider Name and Address Organization Details Recorded Time Essential hypertens ion 67321459 Active 2021 Nona Higgenbot ham [place], [place] - [facility] 4 15:56:47 Hypothyro idism 86828841 Active 2021 Nona Higgenbot [place] [facility] 4 15:56:47 Chronic obstructi ve pulmonary disease 78720397 Active 2021 sees pulmo Nona Higgenbot [place] [facility] 4 15:56:47 Hyperlipi demia 72404912 Active 2021 Nona Hig[place] [facility] 4 15:56:47 Chronic renal failure 64215991 Active 2021 sees nephro/Dr Steph Castellano Hig[place] [facility] 4 15:56:47 Bipolar disorder 06749948 Active 2021 with PTSD-sees N[place] [facility] 4 15:56:47 Hydroceph alus 047801462 Active 2021 s/p shunt 2015- sees neurologi st Nona nieves [place] [facility] 4 15:56:47 Bilateral arthritis of knees 306295964573 9108 Active 2021 with back pain /chronic pain Nona Oharabot ham [place] [facility] 4 15:56:47 Osteoporo sis 07291911 Active 2021 dexa- 11/02 Sharon Moya MD Attn: Yariel rockwell,[address] [place], [address], [place] [facility] 4 14:15:16 Calcifica tion of coronary artery 444661774 Active [address] done by pulok showed extensive calcifica tion-sees cardio Nona [place]o [place] [facility] 4 15:56:47 Occult blood detected in feces 69331193 Active 2021 seen by GI Nona [place] [facility] 4 15:56:47 Rheumatoi d factor detected 351727331 Active 2022 referred to rheumat- has apt in 07/2024 Nona [place]o [place] [facility] 4 15:56:47 Atrophic vaginitis 82925021 Active 2023 NONA JACKSON MD Attn: Yariel rockwell,[address] [place], [address], [place] [facility] 4 11:31:18 Recurrent urinary tract infection 409777812 Active 2023 NONA JACKSON MD Attn: Yariel rockwell,[address] [place], [address], [place] 4 11:31:21 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 - [facility] 4 12:36:10 Type 2 diabetes mellitus 06996573 Active sees endo -Dr.Tae Castellano Maydadee lizbeth [place], [place] - [facility] 4 15:56:47 Urinary incontine nje 899712661 Active sees urologist Nona Carleealberto lizbeth [facility], [place] - [facility] 4 15:56:47 Notes:Some problems listed i n Documents: #[id number], #[id number] could not be added to this patient's chart. Please review these documents and add these problems to the patient's chart manually as needed. Problem Notes None recorded. Procedures Surgical History Date Name Laterality Status Provider Name and Address Organization Details Recorded Time 12/10/19 24 Date of Last Mammogram completed Juani Toure MA [facility] 02/01/2024 11:26:11 07/12/18 92 Total hysterectomy completed Eren Reardon MA [facility] 10/19/2016 14:26:01 07/12/18 82 Cholecystectomy completed Eren Reardon MA [facility] 10/19/2016 14:26:17 07/12/18 76 Appendectomy completed Eren Reardon MA [facility] 10/19/2016 14:25:41 Imaging Results None recorded. Procedure Notes None recorded. Medical Equipment None Reported. Allergies Allergen ID Allergen Name Allergen Category Reaction Reaction Severity Criticality Documentation Date Start Date Code Code System Note Provider Name and Address Organization Details Recorded Time 6565 Demerol medicatio n Not available Not available Not available 06/18/2014 87155 1 RxNorm JACK Rivas, [place] - [facility] 4 14:55:49 6566 Tegretol medicatio n Not available Not available Not available 06/18/2014 9 RxNorm JACK [place], [place] [facility] 4 14:55:49 10509 Product containin g glucocort icoid (product) medicatio n vomiting Not available Not available 10/19/2016 74439 6006 SNCHAKA Reardon [place] null, [place] - [facility] 7 14:24:36 Medications Name Sig Start Date Stop Date Status Note LastModified by Organization Details LastModified Time comfort ez mis [id number] 08/11 completed Not Available Not Available Not [...] Not Available atorvasta tin 20 mg tablet TAKE 1 TABLET(S ) BY MOUTH 1 TIMES PER DAY *NEW PRESCRIP TION REQUEST* 2024 active Not Available Not Available Not Avai lable sulfasala zine 500 mg tablet TAKE 1 (ONE) TABLET BY MOUTH 2 TIMES DAILY *NEW PRESCRIP TION REQUEST* active Not Available Not Available No t [...] famotidin e 40 mg tablet TAKE 1 TABLET(S ) BY MOUTH 1 TIMES PER DAY *NEW PRESCRIP TION REQUEST* 2024 active Not Available Not Available Not Avai lable prednison e 20 mg tablet 08/07 completed Not Available Not Available Not Available alendrona te 70 mg tablet TAKE 1 TABLET(S ) BY MOUTH 1 TIMES PER WEEK *NEW PRESCRIP TION REQUEST* 2024 active Not Available Not Available Not [...] amlodipin e 5 mg tablet TAKE 1 TABLET(S ) BY MOUTH 1 TIMES PER DAY *NEW PRESCRIP TION REQUEST* 2024 active Not Available Not Available Not [...] completed Not Available Not Available Not Available benzonata te 100 mg capsule TAKE 1 CAPSULE 3 TIMES A DAY BY ORAL ROUTE NEEDED FOR 5 DAYS, FOR COUGH. active not taking Not Available Not Available Not Available cephalexi [...] levothyro xine 150 mcg tablet TAKE 1 TABLET(S ) BY MOUTH 1 TIMES PER DAY *NEW PRESCRIP TION REQUEST* 2024 active Not Available Not Available Not [...] e 50 mcg/actua tion nasal spray,kaleb pension INSTILL 2 SPRAY INTO EACH NOSTRIL ONCE DAILY NEEDED *NEW PRESCRIP TION REQUEST* 2024 active Not Available Not Available Not Avai lable lisinopri l 2.5 mg tablet 08/22 completed Not Available Not Available Not Available doxycycli ne hyclate 100 mg tablet TAKE 1 TABLET BY MOUTH TWICE DAILY FOR 5 DAYS active complete Not Available Not Available No t Available ipratropi um bromide 21 mcg (0.03 %) nasal spray ADMINIST ER 2 SPRAYS INTO EACH NOSTRIL EVERY 12 HOURS. active Not Available Not Available No t Available loratadin e 10 mg tablet TAKE 1 TABLET BY MOUTH DAILY 2024 active Not Available Not Available Not Avai lable risperido ne 0.5 mg tablet active Not Available Not Available Not Available amoxicill in 875 mg-potass ium clavulana te 125 mg tablet TAKE 1 TABLET BY MOUTH EVERY 12 HOURS FOR 7 DAYS 12/25 completed Not Available Not Available Not Available amoxicill in 500 mg-potass ium clavulana te 125 mg tablet TAKE 1 TABLET BY MOUTH EVERY 12 HOURS FOR 7 DAYS 11/17 completed Not Available Not Available Not Available buspirone 15 mg tablet TAKE 1 TABLET(S ) BY MOUTH 3 TIMES PER DAY *NEW PRESCRIP TION REQUEST* 2024 active Not Available Not Available Not Avai lable insulin lispro (U-100) 100 unit/mL subcutane ous pen INJECT 12 UNITS UNDER THE SKIN BEFORE EACH MEAL + CORRECTI ONAL FACTOR INSULIN (MAX 50 UNITS PER DAY) active Not Available Not Available No t Available Restasis 0.05 % eye drops in a dropperet te INSTILL 1 DROP INTO BOTH EYES TWICE A DAY *NEW PRESCRIP TION REQUEST* active Not Available Not Available No t [...] TWICE A DAY WITH MEAL OR FOOD 12/25 completed Not Available Not Available Not Available [...] e Short Pen Needle 31 gauge x 11/24 completed Not Available Not Available Not [...] Available Not Available No t Available Imvexxy Mainluisan ce Pack 4 mcg vaginal insert active Not Available Not Available Not Available BD Akanksha 2nd Gen Pen Needle 32 gauge x /32 1 PEN NEEDLE BY DOES NOT APPLY ROUTE 4 TIMES DAILY. USE TO INJECT INSULIN 4X DAILY. active Not Available Not Available No t Available OneTouch Delica Plus Lancet 33 gauge 1 LANCET 4 TIMES DAILY. TEST BLOOD GLUCOSE 3X DAILY. E11.42, INSULIN DEPENDEN T active Not Available Not Available No t Available OneTouch Delica Plus Lancet 30 gauge 4 TIMES A DAY 09/22 completed Not Available Not Available Not Available OneTouch Verio Reflect Meter USE DIRECTED TO TEST BLOOD GLUCOSE 3 TIMES DAILY 09/29 completed Not Available Not Available Not Available Ozempic 1 mg/dose (4 mg/3 mL) subcutane ous pen injector INJECT 1 MG SUBCUTAN EOUSLY ONE TIME PER WEEK active Not Available Not Available No t Available Ozempic 0.25 mg or 0.5 mg [...] 72 /min 120 mm[Hg] 69 mm[Hg] Bouchra Gaytan MA [facility] 5 15:33:02 Date Recorded Body height Body mass index (BMI) Body weight Body temperature Oxygen saturation Oxygen saturation in Arterial blood by Pulse oximetry Respiratory rate Heart rate Systolic blood pressure Diastolic blood pressure Provider Name and Address Organization Details Last Updated DateTime 5 175.26 cm 32.3 kg/m2 52749.7 3 g 96.9 [degF] 96 % 96 % 16 /min 78 /min 118 mm[Hg] 69 mm[Hg] Brittany Bragg MA [facility] 5 11:48:09 Date Recorded Body height Body mass index (BMI) Body weight Oxygen saturation Oxygen saturation in Arterial blood by Pulse oximetry Heart rate Body temperature Systolic blood pressure Diastolic blood pressure Provider Name and Address Organization Details Last Updated DateTime 5 175.26 cm 30.2 kg/m2 17061.2 4 g 96 % 96 % 83 /min 96.8 [degF] 147 mm[Hg] 80 mm[Hg] Juani Thornwood JACK [facility] 5 11:10:28 Date Recorded Body height Body temperature Oxygen saturation Oxygen saturation in Arterial blood by Pulse oximetry Heart rate Body mass index (BMI) Body weight Respiratory rate Systolic blood pressure Diastolic blood pressure Provider Name and Address Organization Details Last Updated DateTime 5 175.26 cm 97.1 [degF] 97 % 97 % 82 /min 27.3 kg/m2 78698.5 9 g 16 /min 135 mm[Hg] 80 mm[Hg] Yanira Lo MA [facility] 5 16:02:52 Date Recorded Body height Body mass index (BMI) Body weight Oxygen saturation Oxygen saturation in Arterial blood by Pulse oximetry Heart rate Respiratory rate Body temperature Systolic blood pressure Diastolic blood pressure Provider Name and Address Organization Details Last Updated DateTime 5 175.26 cm 29.1 kg/m2 52798.4 2 g 95 % 95 % 69 /min 16 /min 97.2 [degF] 102 mm[Hg] 66 mm[Hg] Bouchra Gaytan MA [facility] 5 12:10:56 Social History Question Answer Notes LastModified by Organizat ion Details LastModified Time Tobacco Smoking Status Former Smoker cigarettes Bouchra Gaytan MA null, [facility] 08/07/2021 10:38:06 Are You Blind Or Do You Have Difficulty Seeing? Yes Glasses Information not available 08/07/2021 What Is Your Level Of Caffeine Consumption? Moderate Information not available 08/07/2021 In The 14 Days Before Symptom Onset, Have You Had Close Contact With A [facility] While That Case Was Ill? No Information not available 08/07/2021 In The 14 Days Before Symptom Onset, Have You Had Close Contact With A Person Who Is Under Investigation For COVID-19 While That Person Was Ill? No Information not available 08/07/2021 Have You Been To An Area Known To Be High Risk For COVID-19? No Lives In [facility] Information not available 09/17/2021 Are You Deaf Or Do You Have Serious Difficulty Hearing? Yes Both Ears Information not available 08/07/2021 What Type Of Diet Are You Following? REGULAR Low Carb [id number] Information not available 08/22/2021 What Is The Highest Grade Or Level Of School You Have Completed Or The Highest Degree You Have Received? [id number] Information not available 08/07/2021 Are There Any Guns Present In Your Home? No Information not available 08/07/2021 What Was The Date Of Your Most Recent Tobacco Screening? 12/25/2024 Information not available 12/25/2024 What Is Your Relationship Status? Information not [...] Many Years Have You Smoked Tobacco? 20 [id number] Information not available 05/14/2020 Sex: Female Functional Status Question Answer Note LastModified by Organization Details LastModified Time Do you use any illicit or recreational drugs? No Information not available 08/07/2021 Do you or have you ever used any other forms of tobacco or nicotine? No Information not available 08/07/2021 What is your level of alcohol consumption? None [id number] Information not available 05/14/2020 Are you currently [...] anxious, or unable to sleep at night)? [id number] was worse in custodial Information not available 07/24/2024 Family History Relationship [...] Response Coronary Artery Disease N Other N Atrial Fibrillation N High Blood Pressure Y Thyroid Problems Y Kidney or Bladder Problems Y Depression N COPD Y Blood Clots N GI Problems Y Skin Problems N Anemia N Heart Attack (NC) N Diabetes Y Anxiety Disorder Y Muscle, Joint, or Bone Problems Y Seizures/Epilepsy Y Acid Reflux (GERD) N Cancer N Stroke N Allergies Y Asthma N High Cholesterol N Hepatitis N Liver Disease N Headaches N Osteoporosis N Heart Failure N Gynecological History Statement/Question Response Current Control [...] completed NONA JACKSON MD Attn: [address] [place], [place], [address] [place] [address], [place] [facility] 11/18/2023 11:09:36 COVID-19, mRNA, LNP-S, PF, 100 mcg/0.5mL dose or 50 mcg/0.25mL dose 1 completed NONA JACKSON MD Attn: [address]ing[address] [place], [address] [place] [address], [place] [facility] 11/18/2023 11:09:36 Influenza, split virus, quadrivalent, preservative 1 completed NONA JACKSON MD Attn: Accounting[address] [place], [address] [place] [address], [place] [facility] 11/18/2023 11:13:35 Influenza, split virus, quadrivalent, preservative 0 completed NONA JACKSON MD Attn: Accounting[address] [place], [address] [place] [address], [place] [facility] 11/18/2023 11:09:36 Influenza, split virus, quadrivalent, preservative 9 completed NONA JACKSON MD Attn: Accounting,[address] [place], [address] [place] [address], [place] [facility] 11/18/2023 11:09:36 Influenza, adjuvanted, trivalent, PF 9 completed NONA JACKSON MD Attn: Accounting,[address] [facility], [place], [place], [address] [place] [address], [place] [facility] 11/18/2023 11:09:36 SARS-COV-2 (COVID-19) vaccine, UNSPECIFIED 1 completed NONA JACKSON MD Attn: Accounting,[address] [facility], [place], [address] [place] [address], [place] [facility] 11/18/2023 11:09:36 pneumococcal polysaccharide PPV23 0 completed NONA JACKSON MD Attn: Accounting,[address] [facility], [place], [address] [place] [address], [place] [facility] 11/18/2023 11:09:36 pneumococcal polysaccharide PPV23 1 completed NONA JACKSON MD Attn: Accounting,[address] [place], [address] [place] [address], [place] [facility] 11/18/2023 11:13:35 influenza, unspecified formulation 9 completed NONA JACKSON MD Attn: Accounting,[address] [facility], [place], [address] [place] [address], [place] [facility] 11/18/2023 11:09:37 Tdap 7 completed NONA JACKSON MD Attn: Accounting[address] [place], [address] [place] [address], [place] [facility] 11/18/2023 11:09:37 Pneumococcal conjugate PCV 13 7 completed NONA JACKSON MD Attn: Accounting,[address] [place], [address] [place] [address], [place] [facility] 11/18/2023 11:09:37 TST-PPD intradermal 0 completed NONA JACKSON MD Attn: Accounting,[address] [place], [address] [place] [address], [place] [facility] 11/18/2023 11:09:37 Influenza, high-dose, trivalent, PF 4 completed NONA JACKSON MD Attn: Accounting,[address] [facility] [place], [address] [place] [address], [facility] - [facility] 11/18/2023 11:13:35 Influenza, split virus, trivalent, PF 5 completed NONA JACKSON MD Attn: Accounting,[address] [facility], [place], [address] [place] [address], [facility] - [facility] 11/18/2023 11:09:37 Influenza, split virus, trivalent, PF 6 completed NONA JACKSON MD Attn: Accounting,[address] [facility], [place], [address] [place] [address], [facility] - [facility] 11/18/2023 11:09:37 Influenza, split virus, trivalent, PF 7 completed NONA JACKSON MD Attn: Accounting,[address] [facility], [place], [address] [place] [address], [facility] - [facility] 11/18/2023 11:09:37 Influenza, split virus, quadrivalent, PF 8 completed NONA JACKSON MD Attn: Accounting,[address] [facility], [place], [address] [place] [address], [facility] 11/18/2023 11:09:37 Influenza, MDCK, trivalent, PF 0 completed NONA JACKSON MD Attn: Accounting,[address] [facility], [place], [address] [place] [address], [facility] - [facility] 11/18/2023 11:13:35 HepB-CpG 0 completed NONA JACKSON MD Attn: Accounting,[address] [facility], [place], [address] [place] [address], [facility] - [facility] 11/18/2023 11:11:11 influenza, unspecified formulation 2 completed NONA JACKSON MD Attn: Accounting,[address] [facility], [place], [address] [place] [address], [facility] 11/18/2023 11:13:35 Influenza, split virus, trivalent, preservative 2 completed NONA JACKSON MD Attn: Accounting,[address] [facility], [place], [address] [place] [address], [place] [facility] 11/18/2023 11:13:35 Influenza, MDCK, trivalent, PF 2 completed NONA JACKSON MD Attn: Accounting,[address] [facility], [place], [address], [place] [facility] 11/18/2023 11:13:35 COVID-19, mRNA, LNP-S, PF, 50 mcg/0.5 mL 4 completed Not Available [facility] 12/25/2024 11:30:59 COVID-19, mRNA, LNP-S, PF, 50 mcg/0.5 mL 5 completed Not Available [facility] 12/25/2024 11:30:59 zoster recombinant 5 completed Not Available [facility] 12/25/2024 11:30:59 zoster recombinant 5 completed Not Available [facility] 12/25/2024 11:30:59 COVID-19, mRNA, LNP-S, PF, 100 mcg/0.5mL dose or 50 mcg/0.25mL dose 2 completed Bouchra Gaytan [place] [facility] 09/18/2021 14:35:30 COVID-19, mRNA, LNP-S, bivalent, PF, 50 mcg/0.5 mL or 25mcg/0.25 mL dose 3 completed Lin Clay APN, [employer] TECHNICIAN-C Attn: Accounting,[address] [facility], [place], [address], [place] [facility] 09/09/2022 17:30:45 Influenza, split virus, quadrivalent, preservative 3 completed Sharon Moya MD Attn: Accounting,[address] [facility], [place], [address], [place] [facility] 06/25/2023 15:55:11 pneumococcal, unspecified formulation 0 completed Nona Bejar[place]both[place] [facility] 07/29/2023 15:56:48 tetanus toxoid, unspecified formulation 0 completed Nona Hig[place]botham [place] 07/29/2023 15:56:48 Influenza, high-dose, trivalent, PF 4 completed Sharon Moya MD Attn: Accounting,[address] , [place], [address], [facility] - [facility] 05/05/2024 15:10:30 Pneumococcal conjugate PCV20, polysaccharide [id number] conjugate, adjuvant, PF 5 completed STEFANI FELDMAN-BC Attn: Accounting,[address] , [place], [address], [facility] - [facility] 10/15/2024 15:08:57 Past Encounters Encounter ID Performer Location Encounter Start Date Encounter Closed Date Diagnosis/Indication Diagnosis SNOMED-CT Code Diagnosis ICD10 Code Diagnosis Note [id number] Sathish Benedict MD [facility] [address] [place] [address] 06/18/2014 14:13:02 06/18/2014 16:52:12 Type 2 diabetes mellitus 37778720 Last HGbA1c on 10-03-2013 was excellent a 5.9. Adult heal th examination 864178327 Patient already received an influenza vaccinatio n in April 2014. Urinary incontinence 281025207 followed by urologist Dr. Smith at [facility] in [place]. [id number] Tamiko Mullen MD [facility] (Adult Med) [address] [place] [address] 10/19/2016 13:58:24 10/20/2016 10:48:00 Diabetes mellitus 64309361 E11.9 Diabetic low saturated fat diet, .Insulin. Urinary incontinence 165 723182 R32 Generalize d osteoarthritis 656107881 M15.9 Knees and lower back. PT / OT will be offered.Ca lcium/luciana min D . Osteoporosis 44497803 M8 1.0 Daily OTC calcium/vi tamin D daily. Hypothyroidism 84397404 E03.9 Bipolar disorder 6047413 4 F31.9 She is going to [facility], [phone]. [id number] [facility] [address] [place] [address] 08/07/2021 10:06:22 08/08/2021 06:50:14 Essential hypertension 98622848 I10 - pt is on amlodipine /not sure about lisinopril or losartan Type 2 allegra betes mellitus 06082851 E11.21 -pt is on lantus 28 units hs with humolog tid with meal per endopt is on metformine and some other meds - pt to call with meds Hypothyroidism 28805400 E03.9 pt is on thyroid pill Bipolar disorder 3920947 4 F31.9 meds per Chronic renal failure 90 536593 N18.9 -pt sees nephro at [place] Urinary incontinence 165 823076 R32 with h/o hydrocepha lina -s/p shunt - sees urologist Hydrocephalus 990643025 G91.9 s/p shunt -sees urologist [id number] MD Farhat De Oliveira (Adult Med) [address] [place] [address] 08/22/2021 14:52:59 08/25/2021 09:14:51 Essential hypertension 38558995 I10 - pt is on amlodipine Type 2 allegra betes mellitus 96286411 E11.21 -pt is on lantus 28 units hs with humolog tid with meal per endopt is on metformine and some other meds - pt to call with meds Hypothyroidism 89824549 E03.9 pt is on thyroid pill Bipolar disorder 7438659 4 F31.9 meds per Chronic renal failure 90 062793 N18.9 -pt sees nephro at [place] Hydrocephalus 447717228 G91.9 s/p shunt -sees urologist [id number] MD Farhat De Oliveira (Adult Med) [address] [facility] [place] [address] 09/17/2021 13:24:08 09/18/2021 07:23:33 Pressure injury of sacral region of back 781878578 L89.159 - change position /keep area cleanrefer ral to home health [id number] MD Farhat Uriostegui (Adult Med) [address] [place] [address] 09/18/2021 14:09:46 09/19/2021 11:56:16 Administration of SARS-CoV-2 mRNA vaccine 0705368786 Z23 [id number] MD Farhat De Oliveira (Adult Med) [address] [place] [address] 11/04/2021 13:31:16 11/05/2021 13:28:11 Vaginitis 80825320 N76.0 -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 Type 2 allegra betes mellitus 97468889 E11.21 -pt is on lantus 28 units hs with humolog tid with meal per endopt is off of metformine due to diarrhea Calcificat ion of coronary artery 576017709 I25.84 -CT chest showed per pulmo and wants to be referred to cardio [id number] MD Farhat De Oliveira (Adult Med) [address] [place] [address] 12/01/2021 14:53:59 12/02/2021 14:55:40 Essential hypertension 13269231 I10 - pt is on amlodipine Type 2 allegra betes mellitus 20753491 E11.21 -pt is on lantus 28 units hs with humolog tid with meal per endopt is off of metformine due to diarrhea Hypothyroidism 37159196 E03.9 pt is on thyroid pill Bipolar disorder 9661011 4 F31.9 meds per Chronic renal failure 90 442802 N18.9 -pt sees nephro at [facility] Sinusitis 58589423 J32.9 - pt to try flonase and loratidine Urinary incontinence 165 230706 R32 with h/o hydrocepha lina -s/p shunt - sees urologist [id number] MD Yoselin De Oliveirahalto (Adult Med) [address] [place] [address] 04/10/2022 13:40:44 04/13/2022 08:21:58 Essential hypertension 69836137 I10 - pt is on amlodipine Type 2 allegra betes mellitus 12573582 E11.21 -pt is on lantus 28 units hs with humolog tid with meal per endopt is off of metformine due to diarrhea Hypothyroidism 47227389 E03.9 pt is on thyroid pill Bipolar disorder 7947561 4 F31.9 meds per Chronic renal failure 90 391713 N18.9 -pt sees nephro at [facility] Screening mammography 24 814319 Z12.31 Screening for malignant neoplasm of colon 790087540 Z12.11 Renewal of prescription 416474003 Z76.0 Dependent edema 86674289 4 R60.0 -elevate legs [id number] MD Farhat De Oliveira (Adult Med) [address] [place] [address] 05/29/2022 12:17:26 06/02/2022 12:55:38 Dysuria 20147559 R30.0 -urine dipstick -okwill rx symptomati gus /pt to keep good hydrationp t sees urologist as well [id number] MD Farhat De Oliveira (Adult Med) [address] [place] [address] 08/07/2022 11:29:22 08/10/2022 10:18:15 Essential hypertension 52062786 I10 - pt is on amlodipine Type 2 allegra betes mellitus 20963595 E11.21 -pt is on lantus 28 units hs with humolog tid with meal per endopt is off of metformine due to diarrhea Chronic renal failure 90 068275 N18.9 -pt sees nephro at [place] Bipolar disorder 1852492 4 F31.9 meds per Hydrocephalus 996867387 G91.9 s/p shunt -sees urologist Hypothyroidism 52929758 E03.9 pt is on thyroid pill [id number] MD Farhat Uriostegui (Adult Med) [address] [place] [address] 09/09/2022 13:52:43 09/09/2022 17:31:36 Administration of SARS-CoV-2 mRNA vaccine 9351939983 Z23 [id number] MD Farhat Uriostegui (Adult Med) [address] [place] [address] 09/09/2022 15:49:34 09/10/2022 03:47:07 [id number] MD Farhat De Oliveira (Adult Med) [address] [facility] [place] [address] 11/03/2022 11:10:38 11/05/2022 09:52:22 Essential hypertension 36608586 I10 - pt is on amlodipine Type 2 allegra betes mellitus 38408164 E11.21 -pt is on lantus 28 units hs with humolog tid with meal per endopt is off of metformine due to diarrhea Bipolar disorder 5605422 4 F31.9 meds per Bilateral arthritis of knees 1413321622 422106 M13.861 M13.862 with back pain- pt is on pregabalin for chronic pain Hydrocephalus 595422186 G91.9 s/p shunt -sees urologist Hyperlipidemia 82816007 E78.5 with coronary calcificat ion -seen by cardio as well-pt is on statin Difficulty walking 69473 2002 R26.2 due to hydrocepha lina/chroni c arthritis of knees and back- pt is wheelchair bound -pt is not safe with walker or cane and risks of falls-pt needs electric wheelchair to complete her adl [id number] MD Fahrat De Oliveira (Adult Med) [address] [place] [address] 03/02/2023 11:31:40 03/03/2023 09:49:26 Essential hypertension 64728866 I10 - pt is on amlodipine Type 2 allegra betes mellitus 36928763 E11.21 -pt is on lantus 28 units hs with humolog tid with meal per endopt is off of metformine due to diarrhea Hypothyroidism 90012310 E03.9 pt is on thyroid pill Bipolar disorder 9672759 4 F31.9 meds per - pt is requesting depakote level Chronic renal failure 90 671399 N18.9 -pt sees nephro at [place]- avoid nsaid Hydrocephalus 623272650 G91.9 s/p shunt -sees urologist Decreased hearing 195933 001 H91.90 [id number] MD Farhat De Oliveira (Adult Med) [address] [place] [address] 06/25/2023 13:53:46 06/29/2023 12:23:18 Essential hypertension 49606521 I10 - pt is on amlodipine Type 2 allegra betes mellitus 00455082 E11.21 -pt is on lantus 28 units hs with humolog tid with meal per endopt is off of metformine due to diarrhea Hypothyroidism 35631806 E03.9 pt is on thyroid pill Lower urin samantha tract symptoms 709904026 R39.9 possibly due to vaginal atrophy- urine culture showed mixed growthpt was rxed with several antibiotic s by other providers on several occasions - discussed with pt regarding mutliple antibiotic use-pt to follow up with Gynpt is on uti px Hyperlipidemia 85922569 E78.5 with coronary calcificat ion -seen by cardio as well-pt is on statin Administra tion of influenza vaccine 57174931 Z23 [id number] [facility] [address] [place] [address] 07/20/2023 14:20:57 07/21/2023 10:23:43 Dysfunction of bilateral eustachian tubes 4785387154 858434 H69.93 follow back if it isn't improving Acute sinusitis 77980483 J01.90 start augmentin [id number] MD [facility] [address] [place] [address] 09/28/2023 11:12:03 09/30/2023 16:27:23 Essential hypertension 35459936 I10 - pt is on amlodipine Type 2 allegra betes mellitus 72966894 E11.21 -pt is on lantus 28 units hs with humolog tid with meal per endopt is off of metformine due to diarrheapt is on ozempic as well Hypothyroidism 39386603 E03.9 pt is on thyroid pill Hyperlipidemia 83965919 E78.5 with coronary calcificat ion -seen by cardio as well-pt is on statin Bipolar disorder 1806423 4 F31.9 meds per - pt is requesting depakote level Screening for malignant neoplasm of colon 864085011 Z12.11 [id number] MD Rajendra iPckettn 14 IM [address] [facility] [address] [place] [address] 10/13/2023 16:49:54 10/18/2023 10:58:56 Urinary symptoms 282983631 R39.9 -UA positive for leukocytes despite prophylact ic therapy.-P ositive for CVA tenderness .-Patient presentati on concerning for possible antibiotic resistant UTI due to chronic antibiotic use and history of UTI treatment at the end of August.- Patient was escorted to the bathroom by 3 [facility] staff members. Patient was unable to stand on her own and relied heavily on her 3 helpers. Patient states she lives at home alone and has felt very weak. Patient states she does not have anyone to help her at home.-PROGRAM STRATEGIST discussed possibilit y of UTI with UA showing leukocytes , positive for CVA tenderness , and patient's increased weakness. PROGRAM STRATEGIST discussed safety of patient going home alone with the patient. Patient would like to seek care in the ED. Patient would like to be driven to the ED by her log truck driver instead of waiting for ambulance transport. -Patient to follow up with PCP. Body mass index 40+ - severely obese 920995019 Z68.41 [id number] MD Farhat SOUTH ([employer]) [address] [place] [address] 11/18/2023 10:30:18 11/19/2023 12:24:03 Routine gynecologic examination done 6764972929 9101 Z01.419 - Reviewed risks for infection and cancer; ordered screening tests as appropriat e Recurrent urinary tract infection 173890136 N39.0 - Patient already using twice weekly [...] provider Screening for malignant neoplasm of breast 605973884 Z12.31 - Due for screening mammogram; ordered today Atrophic vaginitis 68073 000 N95.2 - Refilled home vaginal estrogen [id number] MD Farhat SOUTH ([employer]CTOR) [address] [place] [address] 11/26/2023 11:45:14 12/04/2023 18:12:22 Acute vaginitis 91498055 N76.0 - Will check NuSwab to see patient has yeast infection that does not respond as well to azoles- Continue vaginal terconazol e for 7 nights as prescribed by urgent care Candidiasis of skin 4988 3006 B37.2 - Mild erythema of left inguinal crease concerning for yeast infection- Will treat with nystatin cream BID PRN [id number] MD Farhat De Oliveira (Adult Med) [address] [place] [address] 02/01/2024 10:44:25 02/07/2024 12:07:15 Essential hypertension 63969447 I10 - pt is on amlodipine Hypothyroidism 55455214 E03.9 pt is on thyroid pill Hyperlipidemia 38636455 E78.5 with coronary calcificat ion -seen by cardio as well-pt is on statin Type 2 allegra betes mellitus 65157148 E11.21 -pt is on lantus 28 units hs with humolog tid with meal per endopt is off of metformine due to diarrheapt is on ozempic as well Bipolar disorder 4980012 4 F31.9 meds per - pt is requesting depakote level Recurrent urinary tract infection 353497820 N39.0 - pt sees urologist and was rxed with several rounds of antibiotic Obesity 601039849 E66.8 [id number] MD Farhat SOUTH ([employer]) [address] [place] [address] 02/11/2024 11:24:37 02/17/2024 16:21:44 Pruritus of vagina 50680023 L29.3 - Patient has persistent ly been [...] and vulvar manifestat ions of systemic disease [id number] MD [facility] ([facility] [address] [place] [address] 05/05/2024 12:00:02 05/10/2024 12:14:14 Administration of influenza vaccine 99981760 Z23 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 - [facility] has lab to do in 2 month per pt Chronic tremor 360102575 R25.1 which interferes with daily activities -holding things and writing [id number] MD [facility] ([facility] [address] [place] [address] 07/24/2024 14:54:59 07/28/2024 11:02:42 Community acquired pneumonia 673996839 J18.9 -pt is on augmantin now-improv ing-will repeat cxr in few wks Recurrent urinary tract infection 787304481 N39.0 - pt sees urologist and was rxed with several rounds of antibiotic Hydrocephalus 132136984 G91.9 s/p shunt -sees neurologis t [id number] Sathish Benedict MD [facility] [address] [place] [address] 09/22/2024 11:16:14 10/16/2024 08:50:07 Screening for malignant neoplasm of colon 509958613 Z12.11 Hemorrhoids 43965155 K64 .9 -patient reports hemorrhoid flare at this time. Patient declined exam-patie nt agreeable to treatment with hydrocorti sone cream b.i.d. p.r.n. for 1-2 weeks. PROGRAM STRATEGIST discussed risks of steroid cream use including thinning of skin.-ER precaution s advised-pa tient to follow up in clinic if symptoms worsen or do not improve HIV screen ing declined 5375188152 45829 Z53.20 Type 2 allegra betes mellitus without complication 923119665 E11.9 -uncontrol led-manage ment per endocrinol ogy-Last [...] liliam to check feet daily. Essential hypertension 30067448 I10 -Controlle d-BP today in clinic: 118/69mmHg [...] or >140/90mmH g Seasonal a llergic rhinitis 221779683 J30.2 -patient reports symptoms are controlled on current therapy-de creasing dose to age-approp riate dose of loratadine 5 mg daily p.r.n. Administra tion of pneumococcal vaccine 48725221 Z23 -Patient agreeable to pneumonia vaccine.-N P discussed potential side effects and benefits of vaccine. Chronic ki dney disease 830491918 N18.9 -managemen t per nephrology -Last GFR and Creatinine : 192.57 (05/22/24) -Continue to trend BMP-Advise d patient to stay hydrated and avoid nephrotoxi c medication s such as NSAIDs. [id number] MD Farhat SOUTH ([employer]) [address] [place] [address] 11/24/2024 11:01:00 11/24/2024 13:30:50 Routine gynecologic examination done 4295662667 9101 Z01.419 - Reviewed risks for infection and cancer; ordered screening tests as appropriat e Screening for malignant neoplasm of breast 898356473 Z12.31 - Due for screening mammogram; ordered today Atrophic vaginitis 59298 000 N95.2 - Home vaginal estrogen now prescribed by urology Candidiasis of vagina 72 980003 B37.31 - Recent Abx use in patient with uncontroll ed DM2; will treat empiricall y for yeast infection Health Concerns Section Related Observation LastModified by Organization Detai ls LastModified Time None Recorded Concern Status LastModified by Organization Details LastModified Time None Recorded Advance Directives Directive None Recorded Payers Insurance Date Sequence Insurance Name Policy Number Policy Morales Covered Member ID Morales Member ID Guarantor Name 12/18/2024 [place] [facility] Khadra Wolfe Allsmann [id number] Khadra Wolfe Allsman 09/18/2024 1 [place] Khadra Wolfe Allsmann [id number] Khadra Wolfe Allsman 07/24/2024 1 [facility] (MEDICARE REPLACEMENT/A DVANTAGE - PPO) [id number] Khadra Wolfe Allsman [id number] Khadra Wolfe Allsman 09/25/2024 1 [place] WHEN MED[place]ARE OR MEDICARE REPLACEMENT PRIMARY) Khadra Allsman [id number] Khadra Wolfe Allsman 07/24/2024 1 [place] Khadra Wolfe Allsmann [id number] Khadra S Allsman 07/24/2024 2 [place] WHEN [place] OR MEDIC[place] REPLACEMENT PRIMARY) Khadra Wolfe Allsman [id number] Khadra Wolfe Allsman 07/24/2024 [place] [facility] Khadra Wolfe Allsmann [id number] Khadra Wolfe Allsman 07/24/2024 3 [facility] [id number] Khadra Allsman [id number] Khadra Wolfe Allsman 12/24/2024 1 [facility] (MEDICARE REPLACEMENT/A DVANTAGE - PPO) [id number] Khadra S Allsmann [id number] Khadra S Allsman 10/16/2024 [facility] - MEDICARE COMPLETE (MEDICARE REPLACEMENT HMO) [id number] Khadra S Allsman [id number] Khadra Wolfe Allsman Notes Date Note Type Note Provider Name and Address Organization Details Recorded Time 07/24/2024 text/html pt with multiple medical problems [...] incontinence Sharon Moya MD Attn: Accounting,[address] [facility], [place], [address], [facility] 07/25/2024 13:51:16 09/22/2024 text/html Patient presents to the clinic to establish care. Patient was previously established with Dr. Campuzano for primary care.Other providers:Dr. Malone-psychiatryDr. Alberto-pulmonologyDr . Kathleen-nephrologistDr Brayden Garcia-endocrinologistDr Brayden Chavez-UrologistDrBrayden Kinney-neurologistDrBrayden Gil-Rheumatology -Medical Hx/Surgical Hx: bipolar disorder, COPD, [...] education: GED Allergies: corticosteroids, demerol, tegretol STEFANI FELDMAN-BC Attn: Accounting,[address] [facility], [place], [address], [facility] 10/15/2024 15:39:15 11/24/2024 text/html Annual well woky n- PCP: STEFANI Dawson Concerns today- None. [...] alendronate NONA JACKSON MD Attn: Accounting,[address] [facility], [place], [address], [facility] 11/24/2024 13:11:25 OBGyn Episode No OBEpisode recorded.
--- OUTSIDE RECORDS SUMMARY | 2024-12-26 19:08 | XMS_ITS | Clinical Summary ---
Author Organization [facility] Address [address] [place] [address] Phone Care Team Providers Care Cableway Operator Name Role Phone Sharon Moya MD Primary Care Provider [phone] Chapito Garcia MD Unavailable Radha Mac DPM Unavailable [phone] Allergies Active Allergy Reactions Criticality Noted Date [...] mouth. Activ e Blood Glucose Monitoring Suppl (URBANARA) w/Device KitIndications :Type 2 diabetes mellitus with diabetic polyneuropathy , with long-term current use of insulin ([facility]) 1 Kit by Does not apply route daily. Test blood glucose 3x daily. E11.9, insulin dependent 1 Kit Active Misc. Devices MiscIndication s:Type 2 diabetes mellitus with diabetic polyneuropathy , with long-term current use of insulin ([facility]) Diabetic shoes 1 Each Active fluticasone (FLONASE) 50 MCG/ACT Suspension 1-2 Sprays by Nasal route daily. Use in each nostril as directed. 9.9 mL Active Additional Information Patient taking differently:1-2 [place] NasalDAILY PRN, Allergies, Rhinitis, Use in each nostril as directed., Reported on 12/21/2024 Premarin 0.625 MG/GM Cream 023 Active Continuous Blood Gluc Sensor (Dexcom G7 Sensor) MiscIndication s:Type 2 diabetes mellitus with diabetic polyneuropathy , with long-term current use of insulin ([facility]) 1 Each by Does not apply [...] , with long-term current use of insulin ([facility]) 4 TIMES A DAY 400 Strip 3 025 Active OneTouch Delica Lancets 33G MiscIndication s:Type 2 diabetes mellitus with diabetic polyneuropathy , with long-term current use of insulin ([facility]) 1 Lancet . by Does not apply route 4 times daily. Test blood glucose 3x daily. E11.42, insulin dependent 400 Lancet . 3 025 Active Insulin Pen Needle (Pen Shannon) 32G X 4 MM Misc 1 Pen [...] A WEEK 9 mL 1 025 Active primidone (MYSOLINE) 50 MG Tablet Take 50 mg by mouth every 6 hours. 025 Active citalopram (CELEXA) 20 MG Tablet [...] Encounters Date Type Department Care Team Description 12/26/2024 Refill [facility] [place] [address] [place] [address] Chapito Garcia MD Medication Refill 12/26/2024 Refill [facility] [address] [place] [address] Boni Chavez APRN, CNP Medication Refill 12/21/2024 9:45 AM CDT Office Visit [facility] [address] [place] [address] Chapito Garcia MD Type 2 diabetes mellitus with diabetic polyneuropathy, with long-term current use of insulin (HCC) (Primary Dx); Insulin dose changed (HCC); Hypoglycemia; Overweight Discharge Disposition: Discharged to home or Selfcare 12/21/2024 Travel 12/12/20[facility] [place] [address] Chapito Garcai MD Medication Refill 10/30/2024 [facility] [address] [place] [address] Chapito Garcia MD Medication Refill from Last 3 Months Immunizations Immunization Administration Dates Next Due Covid-19, Mrna, Lnp-s, Pf, 1 00 Mcg Or 50 Mcg Dose (MODERNA) 10/30/2022,11/14/2020,10/17/2020 Hepatitis B-CpG 04/23/2020 Influenza Vaccine 05/03/2017,04/11/2016,04/11/20 15 [...] drink = 0.6 oz pur e alcohol) [facility] Utilities Answer Date Recorded In the past 12 months has e electric, gas, oil, or water [employer] threatened to shut off services in your home? Patient declined 05/25/2024 Social Connection and Isolation Panel Answer Date Recorded In a typical week, how many times do you talk on the phone with family, friends, or neighbors? Patient declined 05/25/2024 How often do you get togethe r with friends or relatives? Patient declined 05/25/2024 How often do you attend denominational or nondenominational serv ices? Patient declined 05/25/2024 Do you belong to any clubs o r organizations such as denominational groups, unions, fraternal or athletic groups, or [...] Total Score - Questions 1-9 0 03/2022 [facility] - Occupational Stress [...] time in the past 12 m [facility], were you homeless or living in a skilled nursing (including now)? Patient declined 05/25/2024 Sexually Active Control Partners Comments Not Currently Comments No Sex and Gender Information Value Date Recorded Sex Assigned at Female 02/22/2023 8:54 AM CDT Legal Sex Female 7:09 PM CDT Gender Identity Female 02/22/2023 8:54 AM CDT Sexual Orientation Not on file Last Filed Vital Signs Vital Sign Reading Time Taken Comments Blood Pressure 132/62 12/21/2024 9:50 AM CDT Pulse 79 12/21/2024 9:50 AM CDT Temperature 36.3 C (97.4 F) 12/21/2024 9:50 AM CDT Respiratory Rate 22 12/21/2024 9:50 AM CDT Oxygen Saturation 98% 12/21/2024 9:50 AM CDT Inhaled Oxygen Concentration - - Weight 83.6 kg (184 lb 4.8 oz) 12/21/2024 9:50 A M CDT Height 175.3 cm (5' 9) 05/25/2024 10:30 PM CULTURAL ANTHROPOLOGY PROFESSOR Body Mass Index 27.22 05/25/2024 10:30 PM CULTURAL ANTHROPOLOGY PROFESSOR Plan of Treatment Upcoming Encounters Date Type Department Care Team (Late st Contact Info) Description 03/29/2025 9:45 AM CDT [facility] Visit [facility] [place] [address] [place] [address] Chapito Garcia MD [address] [address] Health Maintenance Due Date Last Done Comments Hepatitis C Virus (HCV) Screening 1960 Cologuard 2004 Colonoscopy 2004 Colorectal Cancer Screening 2004 Immunochemical Fecal Occult Blood 2004 Respiratory Syncytial Virus (RSV) Immunization (Adult) (1 - Risk 60-74 years 1-dose series) 2019 Hepatitis B Immunization (2 of 2 - CpG 2-dose series) 05/21/2020 04/23/2020 Mammogram 12/09/2024 12/10/2023, 03/2 , 04/22/2021 SARS-COV-2 Immunization ( season) 2025 10/12/2024, 10/25/2023, 10/30/2022, Additional history exists Diabetes: Nephropathy Screening 05/22/2025 05/22/2024, 02/28/2023, 06/19/2021, Additional history exists Diabetes: Hemoglobin A1c 06/22/2025 025, 09/11/2024, 05/23/2024, Additional history exists Diabetes: Eye Exam 08/14/2025 08/14/2024, 0 01/31/2024, 01/31/2024 DEXA Bone Density 11/02/2025 11/03/2023 Diabetes: Foot Exam 12/21/2025 12/21/2024 Td Immunization Every 10 Years (Adults With 1 Tdap) 02/27/2027 02/27/2017, 02/27/2017 DTaP/Tdap/Td Immunization Discontinued 02/27/2017, Cervical Cancer Screening (CCS) Discontinued Pap Smear Discontinued 03/25/2018 Influenza Immunization Completed , 06/25/2023, 03/06/2022, Additional history exists Pneumococcal Immunization (50+ years) Completed 09/22/2024, 02/13/2021, 08/25/2016, Additional history exists Pneumococcal Immunization Combined Discontinued 09/22/2024, 02/13/2021, 08/25/2016, Additional history exists Zoster Immunization Completed 12/12/2024, HPV/Cotest Discontinued Human Papillomavirus (HPV) Immunization Aged Out No longer eligible based on patient's age to complete this topic Meningococcal Immunization (ACWY) Aged Out No longer eligible based on patient's age to complete this topic Rotavirus Immunization Aged Out No lo nger eligible based on patient's age to complete this topic Procedures Procedure Name Priority Date/Time Associated Diagnosis Comments POCT GLYCOSYLATED HEMOGLOBIN Routine 12/21/2024 10:00 AM CDT Type 2 diabetes mellitus with diabetic polyneuropathy, with long-term current use of insulin (HCC) CMP (COMPREHENSIVE METABOLIC PANEL) STAT 05/22/2024 9:59 AM CULTURAL ANTHROPOLOGY PROFESSOR HM DILATED EYE EXAM 01/31/2024 1 2:00 AM CDT from Last 3 Months or Most Recently Relevant to Health Maintenance Results * (ABNORMAL) POCT GLYCOSYLATED HEMOGLOBIN (12/21/2024 10:00 AM CDT) Pathologist [facility] HGB-A1C 8.0(A) 4 - 6 % Blood 12/21/2024 10:0 0 AM CDT Chapito Garcia MD POINT OF CARE TESTING (MANUAL) F inal Result * (ABNORMAL) Comprehensive Metabolic Panel (Cmp) [id number] (05/22/2024 9:59 AM CULTURAL ANTHROPOLOGY PROFESSOR) [facility] SODIUM 138 136 - 145 mmol/L 05/22/2024 11:21 AM [facility] POTASSIUM 5.0 3.5 - 5.1 mmol/L 05/22/2024 11:21 AM [facility] CHLORIDE 105 98 - 107 mmol/L 05/22/2024 11:21 AM [facility] CO2, VENOUS 20(L) 22 - 30 mmol/L 05/22/2024 11:21 AM [facility] ANION GAP 18.0(H) <18.0 mmol/L 05/22/2024 11:21 AM [facility] GLUCOSE 281(H) 70 - 99 mg/dL 05/22/2024 11:21 AM [facility] BUN 34(H) 10 - 20 mg/dL 05/22/2024 11:21 AM [facility] CREATININE, BLOOD 2.57(H) 0.60 - 1.00 mg/dL 05/22/2024 11:21 AM [facility] BUN/CREATININE RATIO 13 12 - 20 ratio 05/22/2024 11:21 AM [facility] TOTAL PROTEIN 6.3 6.3 - 8.2 g/dL 05/22/2024 11:21 AM [facility] ALBUMIN 3.6 3.5 - 5.0 g/dL 05/22/2024 11:21 AM [facility] A/G RATIO 1.3 1.0 - 2.2 05/22/2024 11:21 AM [facility] CALCIUM 9.8 8.7 - 10.5 mg/dL 05/22/2024 11:21 AM [facility] T BILI 0.6 0.2 - 1.2 mg/dL 05/22/2024 11:21 AM [facility] SGOT (AST) 30 5 - 34 U/L 05/22/2024 11:21 AM [facility] SGPT (ALT) 11 0 - 55 U/L 05/22/2024 11:21 AM [facility] ALKALINE PHOSPHATASE 63 40 - 150 U/L 05/22/2024 11:21 AM [facility] GFR, ESTIMATED 20(L) >=60 05/22/2024 11:21 AM [facility] Comment: Creatinine Clearance is the preferred criteria for selecting drug dose adjustments in renally impaired patients. The GFR is provided as additional pertinent clinical information. GFR is reported in mL/min/1.73 sq m. Calculation based on the Chronic Kidney Disease Epidemiology Collaboration (CKD- EPI) equation refit without adjustment for race. GFR, EST. 23(L) >=60 024 11:21 AM [facility] GFR, EST. NONAFRICAN 19(L) >=60 05/22/2024 11:21 AM [facility] Blood Venipuncture / Unknown 05/22/2024 9:59 AM CULTURAL ANTHROPOLOGY PROFESSOR 05/22/2024 10:50 AM CULTURAL ANTHROPOLOGY PROFESSOR us Clarita Riggs MD CHEMISTRY ORDERABLES Final Re sult [facility] [address] [place] [address] * HM DILATED EYE EXAM (01/31/2024 12:00 AM CDT) 01/31/2024 us Provider Scan PROCEDURE/MINOR SURGICAL ORDERAB LES Final Result SCAN from Last 3 Months or Most Recently Relevant to Health Maintenance Insurance [address], [place] [address] MEDICAID [place] MEDICARE C [facility] Advance Directives * Full Code (Latest [...] 1:21 PM 07/02/2021 1:03 PM Care Teams Cableway Operator Relationship Specialty Start Date End Date Sharon Moya MD [address] [place], [place] [id number] PCP - General Internal Medicine 09/16/21 Chapito Garcia MD [address] [address] Consulting Physician Endocrinology 12/25/21 Radha Mac DPM #[address] [address] Consulting Physician Podiatry 05/26/22
--- OUTSIDE RECORDS SUMMARY | 2024-12-26 19:08 | XMS_ITS | Encounter Summary ---
Author Organization [facility] Address [address] [facility] [place] [address] Phone Care Team Providers Care Blender Conveyor Operator Name Role Phone Sharon Moya MD Primary Care Provider Chapito Garcia MD Unavailable Radha Mac DPM Unavailable [phone] Encounter Details Date Type Department Care Team (Late st Contact Info) Description 06/21/2024 Nursing Facility [facility] [address] [place], [place] [address] [place] [address] Fiorella Horn, EXTRACTION MACHINE OPERATOR, VENDOR MANAGEMENT ASSOCIATE [address] [place] [address] Social History Tobacco Use Types Packs/Day Years Used Date Smoking Tobacco: Former Cigarettes 1 12 Smokeless Tobacco: Never Alcohol Use Standard Drinks/Week Comments No 0 (1 standard drink = 0.6 oz pur e alcohol) [facility] Utilities Answer Date Recorded In the past 12 months has [employer] electric, gas, oil, or water company threatened [...] How often do you attend congregational or scientology serv ices? Patient declined 05/25/2024 Do you [...] Total Score - Questions 1-9 0 03/2022 [facility] - Occupational Stress Questionnaire Answer Date Recorded [...] any time in the past 12 m [facility], were you homeless or [...] Visit [facility] [address] [place] [address] Chapito Garcia MD [address] [address] documented as of this encounter Visit Diagnoses Not on filedocumented in this encounter Care Teams Blender Conveyor Operator Relationship Specialty Start Date End Date Sharon Moya MD [address] [place], [place] [id number] PCP - General Internal Medicine 09/16/21 Chapito Garcia MD [address] [address] Consulting Physician Endocrinology 12/25/21 Radha Mac DPM [address] [phone] Consulting Physician Podiatry 05/26/22 documented as of this encounter
--- OUTSIDE RECORDS SUMMARY | 2024-12-26 19:08 | XMS_ITS | Encounter Summary ---
Author Organization [facility] Address [address] [facility] [place] [address] Phone Care Team Providers Care Sole Buffer Name Role Phone Sharon Moya MD Primary Care Provider [phone] Chapito Garcia MD Unavailable Radha Mac DPM Unavailable Encounter Details Date Type Department Care Team (Late st Contact Info) Description 06/27/2024 Nursing Facility [facility] [address] [place], [place] [address] [place] [address] Fiorella Horn, BELT MAKER, FULL FASHIONED GARMENT KNITTER [address] [place] [address] Social History Tobacco Use Types Packs/Day Years Used Date Smoking Tobacco: Former Cigarettes 1 12 Smokeless Tobacco: Never Alcohol Use Standard Drinks/Week Comments No 0 (1 standard drink = 0.6 oz pur e alcohol) [facility] Utilities Answer Date Recorded In the past 12 months has [employer] electric, gas, oil, or water company threatened [...] declined 05/25/2024 How often do you attend episcopalian or baptism serv ices? Patient declined 05/25/2024 Do you belong to any clubs o r organizations such as episcopalian groups, unions, fraternal or athletic groups, or [...] Total Score - Questions 1-9 0 03/2022 [facility] - Occupational Stress Questionnaire Answer Date [...] Office Visit [facility] [address] [place] [address] Chapito Garcia MD [address] [address] documented as of this encounter Visit Diagnoses Not on filedocumented in this encounter Care Teams Sole Buffer Relationship Specialty Start Date End Date Sharon Moya MD [address] [place], [place] [phone] PCP - General Internal Medicine 09/16/21 Chapito Garcia MD [address] [address] Consulting Physician Endocrinology 12/25/21 Radha Mac DPM #[address] [phone] Consulting Physician Podiatry 05/26/22 documented as of this encounter
--- OUTSIDE RECORDS SUMMARY | 2024-12-26 19:08 | XMS_ITS | Encounter Summary ---
Author Organization [facility] Healthcare Address [address] [place] [address] Care Team Providers Care Denture Waxer Name Role Phone Javi Jones MD Unavailable [phone] Amarilis Rivera PT Unavailable Unavailable Stuart Douglas MD Unavailable [phone] Sharon Moya MD Primary Care Provider [phone] Wu Saleem MD Unavailable [phone] Dominique Peck NP Primary Care Provider Reason for Visit * Auth/Cert Specialty Diagnoses / Procedures Referred By Casi t Referred To Contact Diagnoses Rectal bleeding Personal history of colonic polyps Encounter for screening colonoscopy Rectal bleeding [K62.5] Personal history of colonic polyps [Z86.010] Encounter for screening colonoscopy [Z12.11] Procedures OR COLONOSCOPY FLX DX W/COLLJ SPEC WHEN PFRMD COLONOSCOPY Referral ID Status Reason Start Date Expiration Date Visits Re quested Visits Authorized [id number] 1 1 Encounter Details Date Type Department Care Team (Late st Contact Info) Description 01/17/2024 Hospital Encounter [facility] [address] [place] [address] Hosea Osorio MD [address] [place] [address] [address] Social History Tobacco Use Types Packs/Day Years [...] often do you attend chur ch or confucianism services? 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 DEVELOPMENT Gender Identity Not on file Sexual Orientation [...] colonoscopy documented in this encounter Care Teams Denture Waxer Relationship Specialty Start Date End Date Sharon Moya MD [address] [facility] [place] [address] PCP - General 08/18/21 11/24/24 Dominique Peck, JARETT [address] [facility] [address] [facility] [address] [place] [address] PCP - General Nurse Practitioner 11/25/24 Javi Jones MD [address] [place], [place] [phone] Referring Physician Orthopedic Surgery 01/20/18 5 Amarilis Rivera, PT Physical Therapist Physical Therapy 01/24/18 10/05/24 Stuart Douglas MD Surgeon Orthopedic Surgery 11/24/18 Wu Saleem MD [address] [facility] [place] [address] Etl Analyst Hematology and Oncology 08/22/24 documented as of this encounter
--- OUTSIDE RECORDS SUMMARY | 2024-12-26 19:08 | XMS_ITS | Encounter Summary ---
Author Organization [facility] Address [address] [facility] [place] [address] Phone Care Team Providers Care Architecture Faculty Member Name Role Phone Sharon Moya MD Primary Care Provider [phone] Chapito Garcia MD Unavailable Radha Mac DPM Unavailable [phone] Encounter Details Date Type Department Care Team (Late st Contact Info) Description 07/18/2024 Nursing Facility [facility] [address] [place] [address] Fiorella Horn, STEEL ERECTING PUSHER, HOME RESTORATION SERVICE CLEANER [address] [place] [address] Social History Tobacco Use Types Packs/Day Years Used Date Smoking Tobacco: Former Cigarettes 1 12 Smokeless Tobacco: Never Alcohol Use Standard Drinks/Week Comments No 0 (1 standard drink = 0.6 oz pur e alcohol) [facility] Utilities Answer Date Recorded In the past 12 months has [employer] electric, gas, oil, or water company threatened [...] declined 05/25/2024 How often do you attend christianity or protestant serv ices? Patient declined 05/25/2024 Do you belong to any clubs o r organizations such as christianity groups, unions, fraternal or athletic groups, or [...] Total Score - Questions 1-9 0 03/2022 [facility] - Occupational Stress Questionnaire Answer Date [...] any time in the past 12 m [facility], were you homeless or living [...] Office Visit [facility] [address] [place] [address] Chapito Garcia MD [address] [address] documented as of this encounter Visit Diagnoses Not on filedocumented in this encounter Care Teams Architecture Faculty Member Relationship Specialty Start Date End Date Sharon Moya MD [address] [place], [place] [phone] PCP - General Internal Medicine 09/16/21 Chapito Garcia MD [address] [address] Consulting Physician Endocrinology 12/25/21 Radha Mac DPM [address] [phone] Consulting Physician Podiatry 05/26/22 documented as of this encounter
--- OUTSIDE RECORDS SUMMARY | 2024-12-26 19:08 | XMS_ITS | Clinical Summary ---
Author Organization [facility] Address [address] [place] [address] Phone Care Team Providers Care Real Estate Officer Name Role Phone Sharon Moya Primary Care Provider [phone] Allergies Active Allergy Reactions Criticality Noted Date [...] Diarrhea Low 03/02/2019 Medications ergocalciferol (VITAMIN D-2) 65541 units capsule take 1 capsule by oral [...] 03/11/20 21 Active Blood Glucose Monitoring Suppl (YepLike! Verio Flex System) w/Device kit USE TO [...] 300 mcg by mouth daily Active Lancets (YepLike! Delica Plus Wangbu12H) misc 4 TIMES A DAY 09/26/19 22 [...] Nasal saline spray (Simply saline, Little Remedies, Price, Dillard) 2 second sprays or 2 squeezes into [...] (05/03/2019): Added automatically from request for surgery [id number] Chronic kidney disease, stage 3 (moderate) 12/15 [...] on file Legal Sex Female 8:46 AM [facility] Gender Identity Not on file Sexual [...] Completed 02/13/2021, 08/25/2016, 07/12/[address] [place] [id number] [place] [address] Care Teams Real Estate Officer Relationship Specialty Start Date End Date Sharon Moya PCP - General Internal Medicine 11/05/21
--- OUTSIDE RECORDS SUMMARY | 2024-12-26 19:08 | XMS_ITS | Encounter Summary ---
Author Organization [facility] Healthcare Address [address] [place] [address] Care Team Providers Care Indirect Sales Exec Name Role Phone Javi Jones MD Unavailable [phone] Amarilis Rivera PT Unavailable Unavailable Stuart Douglas MD Unavailable Anthony Burks MD Primary Care Provider [phone] Miscellaneous, Not In File Primary Care Provider Unavailable Unknown, Notinfile Primary Care Provider Unavail able Sharon Moya MD Primary Care Provider [phone] Wu Saleem MD Unavailable [phone] Dominique Peck NP Primary Care Provider Encounter Details Date Type Department Care Team (Late st Contact Info) Description 02/12/2020 Telephone [facility] [address] [place] [address] Traci Urrutia, RT Social History Tobacco Use [...] re latives? Once a week 10/12/2019 Attends [employer] Not on file 10/11 Do you belong to any clubs o r organizations such as hindu groups, unions, fraternal or athletic groups, or [...] on file Legal Sex Female 12:39 AM STAFF REGISTERED NURSE Gender Identity Not on file Sexual Orientation [...] documented as of this encounter Care Teams Indirect Sales Exec Relationship Specialty Start Date End Date Anthony Burks MD PCP - General 09/08/19 08/04/21 Miscellaneous, Not In File PCP - General 08/05/21 08/05/21 Unknown, Notinfile PCP - General 08/06/21 08/17/21 Sharon Moya MD [address] [place] [address] PCP - General 08/18/21 11/24/24 Dominique Peck NP [address] [facility] [address] [place] [address] PCP - General Nurse Practitioner 11/25/24 Javi Jones MD [address] [place] [address] Referring Physician Orthopedic Surgery 01/20/18 5 Amarilis Rivera, PT Physical Therapist Physical Therapy 01/24/18 10/05/24 Stuart Douglas MD Surgeon Orthopedic Surgery 11/24/18 Wu Saleem MD [address] [facility] [address] [place] [address] Gifts Officer Hematology and Oncology 08/22/24 documented as of this encounter
--- OUTSIDE RECORDS SUMMARY | 2024-12-26 19:08 | XMS_ITS | Patient Health Record ---
[facility] Organization [facility] Address [address] [place] [address] Care Team Providers Care Manager Loan Name Role Phone Burks Anthony Primary Care Provider [phone] Zelda Malone Unavailable [phone] Allergies Allergen (clinical drug ingredient) Drug/Non Drug [...] days Active Proctozone-HC 2.5 % 1 application Web Content Coordinator ally three times daily for 7 [...] BEDTIME for 33 Active Easy Touch Pen [place] 32G X 5 MM as directed inject [...] Problem Status W/U Status Risk Notes Problem 23279138 Hyperkalemia (E87.5) Active confirmed Problem 51350542 Other chronic pa in (G89.29) Active confirmed Problem Bipolar 1 disorder (726079466) Bipolar 1 disorder (F31.9) 017 Active confirmed Problem 7567952 Former smoker (Z87.891) Active confirmed Problem 448769162 Environmental allergies (Z91.09) Active confirmed Problem 37872098 Hypertension, essential (I10) 021 Active confirmed Problem 69650328 Constipation, unspecified constipation type (K59.00) Active confirmed Problem 796667461 Gastroesophageal reflux disease, esophagitis presence not specified (K21.9) Active confirmed Problem 55386421 Hyperlipidemia, unspecified hyperlipidemia type (E78.5) Active confirmed Problem 29622905 Chronic obstructive pulmonary disease, unspecified COPD type (J44.9) Active confirmed Problem 083103093 Primary osteoarthritis of both knees (M17.0) Active confirmed Problem 839879865 Type 2 diabetes mellitus without complication, unspecified skilled nursing insulin use status (E11.9) 017 Active confirmed Problem 842845728 Pneumonia due to infectious organism, unspecified laterality, unspecified part of lung (J18.9) Active confirmed 01/2021 - RESOLVED Problem 74371534 Upper respirator y tract infection, unspecified type (J06.9) Active confirmed Problem Chronic rhinitis (54354293) Rhinitis, unspecified type (J31.0) Active confirmed Problem Acquired hypothyroidism (799573016) Acquired hypothyroidism (E03.9) Active confirmed Problem 867048469 Stage 3 chronic kidney disease (N18.3) Active confirmed DR WILSON RENAL Specialist Problem Obesity (192189522) Obesity, unspecified classification, unspecified obesity type, unspecified whether serious comorbidity present (E66.9) Active confirmed Problem 07191484 Dyspnea on exertion (R06.00) Active confirmed Problem 89471717 Osteoporosis, unspecified (M81.0) Active confirmed Encounters Encounter Location Date Provider Diagnosis [address] [address] 02/01/2024 Arif Habib Bipolar 1 disorder F31.[address] [address] 02/02/2024 Arif Habib [address] [address] 02/04/2024 Arif Habib Bipolar 1 disorder F31.[address] [address] 04/27/2024 Anthony Burks [address] [address] 07/28/2024 Arif Habib Bipolar 1 disorder F31.[address] [address] 09/19/2024 Arif Habib Bipolar 1 disorder F31.[address] [place] [address] 10/24/2024 Anthony Burks [place] [address] [place] [address] 11/03/2024 Anthony Burks [place] [address] [place] [address] 11/09/2024 Arif Habib [address] [address] 02/04/2024 Arif Habib Bipolar 1 disorder F31.[address] [place] [address] 04/25/2024 Ari Habib Bipolar 1 disorder F31.[address] [place] [address] 06/20/2024 Arif Habib Bipolar 1 disorder F31.[address] [place] [address] 08/01/2024 Ari Habib Bipolar 1 disorder F31.[address] [address] 10/24/2024 Ari Habib Bipolar 1 disorder F31.9 Assessments Encounter Date Diagnosis (ICD Code) Assessment Notes Treatment Notes Treatment Clinical Notes Section Notes 10/24/2024 Bipolar 1 disorder (ICD-10 - F31.9) continue current treatment. Side effects discussed. Supportive treatment provided. No involuntary movements reported. Check depakote level, CBC, CMP. Pt said she gets her labs done regularly at PCP office. 08/01/2024 Bipolar 1 disorder (ICD-10 - F31.9) continue current treatment. Side effects discussed. Supportive treatment provided. No involuntary movements reported. 02/01/2024 Bipolar 1 disorder (ICD-10 - F31.9) [...] 07/28/2024 Bipolar 1 disorder (ICD-10 - F31.9) 09/19/2024 Bipolar 1 disorder (ICD-10 - F31.9) 02/04/2024 [...] Insured Coverage Start Date Coverage End Date [facility] Medicare Assure [address] [address] [place] [address] [id number] Khadra Beltran Self - patient is the insured 2 MEDICAID [address] [place] [address] [id number] Khadra Beltran Self - patient is the insured 5 4 Medical (General) History Medical History History ICD Code DM HLD hypothyroidism allergies Normal Pressure Hydrocephalus with ventr iculoperitonela shunt in 2014 Surgical History Surgery Date(Month/Year) cholecystectomy TOTAL HYSTERECTOMY APPENDECTOMY CATARACT SURGERY, COMPLEX Hospitalization History Reason Date(Month/Year) High Blood sugar- [facility] 01/2023 Pnuemonia at [facility] 09/11/19 acute ecoli infection 02/2016
--- OUTSIDE RECORDS SUMMARY | 2024-12-26 19:08 | XMS_ITS | Encounter Summary ---
Author Organization [facility] Address [address] [facility] [place] [address] Phone Care Team Providers Care Logging Shovel Operator Name Role Phone Sharon Moya MD Primary Care Provider [phone] Chapito Garcia MD Unavailable Radha Mac DPM Unavailable Encounter Details Date Type Department Care Team (Late st Contact Info) Description 06/12/2024 Nursing Facility [facility] [address] [place], [place] [address] [place] [address] Fiorella Horn, CHERRY PICKER OPERATOR, FLOUR MIXER HELPER [address] [place] [address] Social History Tobacco Use Types Packs/Day Years Used Date Smoking Tobacco: Former Cigarettes 1 12 Smokeless Tobacco: Never Alcohol Use Standard Drinks/Week Comments No 0 (1 standard drink = 0.6 oz pur e alcohol) [facility] Utilities Answer Date Recorded In the past 12 months has [employer] electric, gas, oil, or water company threatened [...] declined 05/25/2024 How often do you attend restoration or denominational serv ices? Patient declined 05/25/2024 Do you belong to any clubs o r organizations such as restoration groups, unions, fraternal or athletic groups, or [...] Total Score - Questions 1-9 0 03[facility]2022 [facility] - Occupational Stress Questionnaire Answer [...] time in the past 12 m [facility], were you homeless or living in [...] Visit [facility] - Endocrinology [facility] [address] [place] [address] Chapito Garcia MD [address] [address] documented as of this encounter Visit Diagnoses Not on filedocumented in this encounter Care Teams Logging Shovel Operator Relationship Specialty Start Date End Date Sharon Moya MD [address] [place], [place] [id number] PCP - General Internal Medicine 09/16/21 Chapito Garcia MD [address] [address] Consulting Physician Endocrinology 12/25/21 Radha Mac DPM [address] [phone] Consulting Physician Podiatry 05/26/22 documented as of this encounter
--- OUTSIDE RECORDS SUMMARY | 2024-12-26 19:08 | XMS_ITS | Clinical Summary ---
Author Organization [facility] Address [address] [place] [address] Care Team Providers Care Certified Orthotist Name Role Phone Stuart Douglas MD Unavailable [phone] Wu Saleem MD Unavailable [phone] Dominique Peck NP Primary Care Provider [...] 1 tablet (150 mcg total) by mouth knitting demonstrator before breakfast Active furosemide (LASIX) 20 mg [...] by mouth daily Active miscellaneous medical supply [facility] [employer] 12/25/19 18 Active NEBULIZER AND COMPRESSOR [facility] 04/14/20 21 Active potassium chloride in LR-D5 (dextrose 5% in Lactated Ringer's with potassium chloride 20 mEq/L) 20 mEq/L infusion daily Active underpads pad as directed 03/30/20 18 Active pregabalin (LYRICA) 50 mg capsule 06/06/20 22 Active empty container (BD [employer]or) [facility] 12/10/19 18 Active miconazole 200 mg suppository [...] 06/09/2023 Assessment & Plan (06/09/2023 1:41 PM PLASTER FOREMAN): Nasal saline spray (Simply saline, Little Remedies, [place], [place]) 2 second sprays or 2 squeezes into [...] (07/30/2022): Added automatically from request for surgery [id number] Assessment & Plan (08/06/2022 8:36 PM PLASTER FOREMAN): Schedule sigmoidoscopy and treatment of hemorrhoids. Hemorrhoids 07/30/2022 Overview (07/30/2022): Added automatically from request for surgery [id number] Coronary artery disease invo lving cabazon coronary artery of cabazon heart without angina pectoris 02/25/2022 Coronary artery calcification 02/25/2022 Chronic pain 02/25/2022 Constipation 02/25/2022 Assessment & Plan (08/06/2022 8:43 PM PLASTER FOREMAN): Chronic constipation. Start Linzess 72 Mcg daily. [...] Nasal saline spray (Simply saline, Little Remedies, [place], [place]) 2 second sprays or 2 squeezes into [...] future Assessment & Plan (06/03/2021 2:53 PM PLASTER FOREMAN): Nasal saline spray (Simply saline, Little Remedies, [place], [place]) 2 second sprays or 2 squeezes into [...] medications Assessment & Plan (07/15/2020 1:19 PM PLASTER FOREMAN): Start Nasal saline spray (Simply saline, Little Remedies, [place], [place]) 2 second sprays or 2 squeezes into [...] daily Assessment & Plan (05/21/2020 10:09 AM PLASTER FOREMAN): Nasal saline spray (Simply saline, Little Remedies, [place], [place]) 2 second sprays or 2 squeezes into [...] 05/21/2020 Assessment & Plan (08/09/2024 8:37 AM PLASTER FOREMAN): Finish Doxycycline Follow up as needed Assessment & Plan (06/09/2023 1:40 PM PLASTER FOREMAN): Nasal saline spray (Simply saline, Little Remedies, [place], [place]) 2 second sprays or 2 squeezes into [...] needed Assessment & Plan (06/30/2022 10:04 AM PLASTER FOREMAN): Nasal saline spray (Simply saline, Little Remedies, [place], [place]) 2 second sprays or 2 squeezes into [...] prescription Assessment & Plan (07/23/2021 12:07 PM PLASTER FOREMAN): Augmentin with a meal twice daily for 10 days, call if no improvement Continue Atrovent 2 sprays into each nostril while looking down over the sink, do not sniff in or blow nose after use for at least 30 minutes 1-2 times daily Assessment & Plan (05/21/2020 8:56 PM PLASTER FOREMAN): Nasal saline spray (Simply saline, Little Remedies, [place], [place]) 2 second sprays or 2 squeezes into [...] (10/19/2018): Added automatically from request for surgery [id number] Bilateral primary osteoarthritis of knee 02/03/2017 02/09/2022 Encounters Date Type Department Care Team Description 12/18/2024 3:00 PM CDT - 12/18/2024 11:59 PM CDT Hospital Encounter [facility] [address] [place] [address] Idiopathic normal pressure hydrocephalus (HCC) Discharge Disposition: Discharge to home or self care 12/15/2024 Telephone [facility] 1 [place] [address] Asencioa 12/13/[address] [address] Chayo Jackson 11/30/2024 Telephone [facility] Scheduling [address] [place] [address] Radha Graham PA 11/21/2024 8:30 AM CDT Office Visit [facility] [address] [facility] [address] [place] [address] Jerzy Edwards MD Idiopathic normal pressure hydrocephalus (CMS/HCC) (Primary Dx); Tremor 10/30/2024 9:15 AM CDT Lab [address] [address] 10/23/2024 10:05 AM CDT Lab [address] [address] 10/06/2024 10:00 AM CDT Office Visit [facility] Physicians [facility] [address] [facility] Medical Office [address] [place] [address] Wu Saleem MD Thrombocytopenia, unspecified (Primary Dx) 10/06/2024 9:30 AM CDT Lab [facility] [address] [facility] [address] [place] [address] Thrombocytopenia, unspecified from Last 3 Months Immunizations [...] often do you attend chur ch or christianity services? 1 to 4 times per year 12/26/2020 Do you belong to any clubs o r organizations such as samaritan groups, unions, fraternal or athletic groups, or [...] on file Legal Sex Female 12:39 AM PLASTER FOREMAN Gender Identity Not on file Sexual Orientation [...] Body Mass Index 29.43 08/09/2024 8:22 AM PLASTER FOREMAN Plan of Treatment Health Maintenance Due Date [...] Covid-19 Vaccine (2023- 5 season) 2024 10/25/2023, 10/30/2022, 09/09/2022, Additional history exists Hemoglobin A1C 11/20/2024 05/23/2024, 04/0 08/2019, 10/18/2018, Additional history exists Breast Cancer Screening-Mammogram 12/09/2024 12/10/2023, 09/28/2022, 04/22/2021, Additional history exists eGFR 10/30/2025 10/30/2024, 10/10, 10/06/2024, Additional history exists Osteoporosis Screening-Bone Density Scan 11/02/2025 11/03/2023 Pneumococcal vaccine 65+ (4 of 4 - PCV20 or PCV21) 02/13/2026 02/13/2021, 08/25/2016, 07/12/1999, Additional history exists DTaP/Tdap/Td Vaccine (2 - Td or Tdap) 02/27/2027 02/27/2017 Hepatitis B Screening Completed 07/23/2023, 020 Hepatitis C Screening Completed 07/23/2023, 015 Influenza Vaccine Completed 05/05/2024, , 03/06/2022, Additional history exists Medical Devices Implanted Type Area Route Returner Device Identifier Shelf Expiration Date Model / Serial / Lot Shunt-11/05/2014 Implanted:2014 by Jerzy Redman MD (Quantity not on file) Shunt Right: Brain [employer] X [id number] / 0 / [id number] [employer] [id number] Attune Cementless Rotate Platform Knee 7 Baseplate Tibial - [id number] Implanted:Qty: 1 on 11/14/2018 by Stuart Douglas MD at [facility] Right: Knee [employer] 08/11/2027 [id number] / / [id number] [employer] [id number] Attune Cruciate Retain Cementless Knee Right 5 Component Femoral - [id number] Implanted:Qty: 1 on 11/14/2018 by Stuart Douglas MD at [facility] Right: Knee [employer] 02/09/2028 [id number] / / [id number] [employer] [id number] Attune 5mm Cruciate Retaining Rotate Platform Knee 5 Insert - [id number] Implanted:Qty: 1 on 11/14/2018 by Stuart Douglas MD at [facility] Right: Knee [employer] 08/11/2023 [id number] / / [id number] Procedures Procedure Name Priority Date/Time Associated Diagnosis Comments CT HEAD WO CONTRAST Schedule Routine, Read Routine (OP Routine) 12/18/2024 3:42 PM CDT Idiopathic normal pressure hydrocephalus (HCC) EGFR Routine 10/30/2024 9:32 AM CDT DIFFERENTIAL [...] HEPATITIS C ANTIBODY Routine 07/23/2023 9:40 AM PLASTER FOREMAN Rheumatoid factor positive HEMOGLOBIN A1C Add-On 10/12/2019 6:42 AM CDT LIPID PANEL Timed 11/20/2018 12:47 AM CDT from Last 3 Months or Most Recently Relevant to Health Maintenance Results * CT Head WO Contrast (12/18/2024 3:42 PM CDT) Anatomical Region Laterality Modality Head and Neck N/A Computed Tomogra phy 12/25/2024 6:54 AM CDT Narrative 12/25/2024 7:03 AM CDT EXAM DESCRIPTION: CT HEAD WO CONTRAST REASON FOR STUDY: Idiopathic normal pressure hydrocephalus F/u on shunt TECHNIQUE: Axial images acquired through the brain without intravenous contrast. Images stored on PACS. Automated exposure control was used as a dose optimization technique for this examination. COMPARISON: 05/22/2024 performed at [facility]. FINDINGS: Assessment limited by qris-sl-xrkuyedo motion artifact and streak artifact. There is a right trans frontal ventriculostomy catheter in position. The tip is in the frontal horn right lateral ventricle. There is mild ventriculomegaly which is unchanged from the prior study. Again seen are mixed density slightly hypoattenuating extra-axial fluid collections similar to the prior study, on the right measuring up to 7 mm and on the left 7 mm, these appear grossly unchanged. There appears to be some very mild local mass effect with very minimal sulcal effacement but no significant midline shift or central mass effect. No new acute intraparenchymal hemorrhage, new cerebral edema, new mass or mass effect. The orbits are limited assessment due to motion. No identified acute skull base or calvarial abnormality. There is hyperostosis noted. There is incomplete union posterior arch C1. The soft tissues show no acute abnormalities. IMPRESSION: 1. No evidence of an acute intracranial abnormality when allowing for motion. 2. Right trans frontal ventriculostomy catheter in position with unchanged mild ventriculomegaly. 3. Unchanged chronic mixed density extra-axial fluid collections/subdural hematomas. THIS IS AN ELECTRONICALLY VERIFIED FINAL REPORT 12/25/2024 7:03 AM - Electronically signed by Tomas Thorne M.D. CH: ALEXIA Report ID: [id number] Reading Location: [id number] Procedure Note Tomas Thorne Jr., MD - 12/25/2024 EXAM DESCRIPTION: CT HEAD WO CONTRAST REASON FOR STUDY: Idiopathic normal pressure hydrocephalus F/u on shunt TECHNIQUE: Axial images acquired through the brain without intravenous contrast. Images stored on PACS. Automated exposure control was used asa dose optimization technique for this examination. COMPARISON: 05/22/2024 performed at [facility]. FINDINGS: Assessment limited by doxx-rm-ephpgpgq motion artifact and streakartifact. There is a right trans frontal ventriculostomy catheter in position. Thetip is in the frontal horn right lateral ventricle. There is mild ventriculomegaly which is unchanged from the prior study. Again seen are mixed density slightly hypoattenuating extra-axial fluid collectionssimilar to the prior study, on the right measuring up to 7 mm and on the left 7mm, these appear grossly unchanged. There appears to be some very mild localmass effect with very minimal sulcal effacement but no significant midlineshift or central mass effect. No new acute intraparenchymal hemorrhage, newcerebral edema, new mass or mass effect. The orbits are limited assessment due to motion. No identified acute skull base or calvarial abnormality. Thereis hyperostosis noted. There is incomplete union posterior arch C1. Thesoft tissues show no acute abnormalities. IMPRESSION: 1. No evidence of an acute intracranial abnormality when allowing for motion. 2. Right trans frontal ventriculostomy catheter in position withunchanged mild ventriculomegaly. 3. Unchanged chronic mixed density extra-axial fluidcollections/subdural hematomas. THIS IS AN ELECTRONICALLY VERIFIED FINAL REPORT 12/25/2024 7:03 AM - Electronically signed by Tomas Thorne M.D. CH: ALEXIA Report ID: [id number] Reading Location: [id number] Boni Ashley MD IMG CT PROCEDURES Final Resul t * (ABNORMAL) eGFR (10/30/2024 9:32 AM CDT) [...] LAB BLOOD ORDERABLES Final Resul t [facility] ([place]) [address] [facility] [place] [address] * (ABNORMAL) Differential, auto (10/30/2024 9:32 AM [...] Final Resul t D[facility]AN [facility] ([place]) [address] [facility] [place] [address] * (ABNORMAL) CBC with auto differential (10/30/2024 [...] 31.4 27.1 - 33.3 pg [facility] ([place]) MCHC 32.4 32.3 - 35.7 g/dL [facility] ([place]) RDW CV 14.5 11.1 - 14.9 % [facility] ([place]) RDW SD 52.2(H) 35.7 - 48.1 fL [facility] ([place]) NRBC abs 0.00 0.00 - 0.01 K/cumm [facility] ([place]) Blood 10/30/2024 9:32 AM CDT 10/30/2024 9:54 AM CDT us Zelda Malone MD LAB BLOOD ORDERABLES Final Resul t [facility] ([place]) [address] [facility] [place] [place] [address] * Valproic acid level, total (10/30/2024 9:32 AM CDT) Valproic Acid 61.4 50.0 - 100.0 mcg/mL Comment: Interpretive Data Therapeutic range: 50-100 mcg/mL Current interpretive data was last revised on 2014 Blood 10/30/2024 9:32 AM CDT 10/30/2024 9:54 AM CDT us Zelda Malone MD LAB BLOOD ORDERABLES Final Resul t [facility] ([place]) [address] [facility] [place] [place] [address] * (ABNORMAL) Comprehensive metabolic panel (10/30/2024 9:32 [...] ORDERABLES Final Resul t Performing Organization Address [facility]/ZIP Co de Phone Number [facility] ([place]) [address] [facility] [place] [address] * (ABNORMAL) eGFR (10/23/2024 10:17 AM CDT) [...] ORDERABLES Final Res ult Performing Organization Address City/[facility]/ZIP Co de Phone Number [facility] ([place]) [address] [facility] [place] [address] * Protein / creatinine ratio, urine, random (10/23/2024 10:17 AM CDT) Protein, ur, quant 5.7 mg/dL Comment: Interpretive Data No reference range established. Current interpretive data was last revised 2018. Creatinine Ur 54.1 mg/dL [facility] ([place]) Comment: Interpretive Data No reference range established. Current interpretive data was last revised 2018. Protein/creatinin e ratio 105.4 0.0 - 180.0 mg/g CR [facility] ([place]) Urine 10/23/2024 10:1 7 AM CDT 10/23/2024 10:34 AM CDT Uche Phan MD LAB URINE ORDERABLES Final Res ult Performing Organization Address City/[facility]/ZIP Co de Phone Number [facility] ([place]) 1 [facility] [place] [address] * Vitamin D 25 hydroxy (10/23/2024 10:17 AM CDT) Pathologist [facility] Vitamin D 25-OH 40 30 - 80 ng/mL Blood 10/23/2024 10:1 7 AM CDT 10/23/2024 10:32 AM CDT Uche Phan MD LAB BLOOD ORDERABLES Final Res ult Performing Organization Address [facility] Co de Phone Number [facility] ([place]) 1 [facility] [place] [address] * (ABNORMAL) PTH (10/23/2024 10:17 AM CDT) Pathologist [facility] PTH 72(H) 15 - 65 pg/mL Blood 10/23/2024 10:1 7 AM CDT 10/23/2024 10:32 AM CDT Uche Phan MD LAB BLOOD ORDERABLES Final Res ult Performing Organization Address [facility] Co de Phone Number [facility] ([place]) 1 [facility] [place] [address] * (ABNORMAL) Renal function panel (10/23/2024 10:17 AM CDT) Sodium 143 135 - 145 mmol/L Potassium, pl 5.1(H) 3.3 - 4.9 mmol/L [facility] ([place]) Chloride 106 97 - 110 [...] MD LAB BLOOD ORDERABLES Final Res ult [facility] ([place] [address] [facility] Department [place] [address] * Differential, auto (10/06/2024 9:15 AM CDT) Neutrophil abs 4.2 1.5 - 6.5 K/cumm Comment:Testing performed by : [facility] [place], [address], Medical Office [address], [place] [address] Imm gran abs 0.0 0.0 - 0.1 K/cumm [facility] ([place]) Comment:Testing performed by : [facility] [address], Medical Office [facility] [address], [place] [address] Lymphocyte abs 1.5 0.8 - 3.3 K/cumm [facility] ([place]) Comment:Testing performed by : [facility] [address], Medical Office [facility] [address], [place] [address] Monocyte abs 0.7 0.2 - 0.8 K/cumm [facility] ([place]) Comment:Testing performed by : [facility] [address], Medical Office [facility] [address], [place] [address] Eosinophil abs 0.1 0.0 - 0.5 K/cumm [facility] ([place]) Comment:Testing performed by : [facility] [address], Medical Office [facility] [address], [place] [address] Basophil abs 0.0 0.0 - 0.1 K/cumm [facility] ([place]) Comment:Testing performed by : [facility] [address], Medical Office [facility] B [facility] [address], [place] [address] Neutrophil pct 63.6 % [facility] ([place]) Comment: Interpretive Data Percent cell count reference ranges are not reported, since discordance with absolute values may lead to misinterpretation of CBC data. Current Interpretive Data was last revised on 2022. Testing performed by: [facility] [address], Medical Office [facility] B [facility] [address], [place] [address] Imm gran pct 0.6 % [facility] ([place]) Comment: Interpretive Data Percent cell count reference ranges are not reported, since discordance with absolute values may lead to misinterpretation of CBC data. Current Interpretive Data was last revised on 2022. Testing performed by: [facility] [address], Medical Office [facility] [address], [place] [address] Lymphocyte pct 22.8 % [facility] ([place]) Comment: Interpretive Data Percent cell count reference ranges are not reported, since discordance with absolute values may lead to misinterpretation of CBC data. Current Interpretive Data was last revised on 2022. Testing performed by: [facility] [address], Medical Office [address], [place] [address] Monocyte pct 10.9 % [facility] ([place]) Comment: Interpretive Data Percent cell count reference ranges are not reported, since discordance with absolute values may lead to misinterpretation of CBC data. Current Interpretive Data was last revised on 2022. Testing performed by: [facility] [address], Medical Office [facility] [address], [place] [address] Eosinophil pct 1.5 % [facility] ([place]) Comment: Interpretive Data Percent cell count reference ranges are not reported, since discordance with absolute values may lead to misinterpretation of CBC data. Current Interpretive Data was last revised on 2022. Testing performed by: [facility] [address], Medical Office [facility] [address], [place] [address] Basophil pct 0.6 % [facility] ([place]) Comment: Interpretive Data Percent cell count reference ranges are not reported, since discordance with absolute values may lead to misinterpretation of CBC data. Current Interpretive Data was last revised on 2022. Testing performed by: [facility] [address], Medical Office [facility] B [facility] [address], [place] [address] Blood 10/06/2024 9:15 AM CDT 10/06/2024 9:23 AM CDT us Wu Saleem MD LAB BLOOD ORDERABLES Final Re sult [facility] ([place]) [address] [facility] [place] [address] * (ABNORMAL) CBC with auto differential (10/06/2024 9:15 AM CDT) WBC 6.5 3.8 - 9.9 K/cumm Comment:Testing performed by : [facility] [address], Medical Office [facility] [address], [place] [address] Hgb 13.2 11.9 - 15.5 g/dL [facility] ([place]) Comment:Testing performed by : [facility] [address], Medical Office [facility] [address], [place] [address] Hct 41.9 35.6 - 45.5 % [facility] ([place]) Comment:Testing performed by : [facility] [address], Medical Office [address], [place] [address] Plt 126(L) 150 - 400 K/cumm [facility] ([place]) Comment:Testing performed by : [facility] [address], Medical Office [address], [place] [address] MPV 11.3 9.1 - 12.3 fL [facility] ([place]) Comment:Testing performed by : [facility] [address], Medical Office [facility] [address], [place] [address] RBC 4.31 3.90 - 5.20 M/cumm [facility] ([place]) Comment:Testing performed by : [facility] [address], Medical Office [facility] [address], [place] [address] MCV 97.2(H) 81.3 - 96.4 fL [facility] ([place]) Comment:Testing performed by : [facility] [address], Medical Office [facility] [address], [place] [address] MCH 30.6 27.1 - 33.3 pg [facility] ([place]) Comment:Testing performed by : [facility] [address], Medical Office [facility] [address], [place] [address] MCHC 31.5(L) 32.3 - 35.7 g/dL [facility] ([place]) Comment:Testing performed by : [facility] [address], Medical Office [facility] [address], [place] [address] RDW CV 14.6 11.1 - 14.9 % [facility] ([place]) Comment:Testing performed by : [facility] [address], Medical Office [address], [place] [address] RDW SD 53.2(H) 35.7 - 48.1 fL [facility] ([place]) Comment:Testing performed by : [facility] [address], Medical Office [address], [place] [address] NRBC abs Not Measured 0.00 - 0.01 K/cumm [facility] ([place]) Comment:Testing performed by : [facility] [place], [address] [facility], Medical Office [address], [place] [address] Blood 10/06/2024 9:15 AM CDT 10/06/2024 9:23 AM CDT Wu Saleem MD LAB BLOOD ORDERABLES Final Re sult Performing Organization Address City/[facility]/ZIP Co de Phone Number [facility] ([place]) 1 [facility] [place] [address] * (ABNORMAL) eGFR (10/06/2024 9:00 AM CDT) [...] was last reviewed 2021. Testing performed by: [facility], [address], [place], [address] Blood 10/06/2024 9:00 AM CDT 10/06/2024 9:55 AM CDT Wu Saleem MD LAB BLOOD ORDERABLES Final Re sult [facility] ([place]) 1 [facility] [place] [address] * (ABNORMAL) Comprehensive metabolic panel (10/06/2024 9:00 AM CDT) Sodium 136 135 - 145 mmol/L Comment:Testing performed by : [facility], [place], [address] Potassium, pl 5.3(H) 3.3 - 4.9 mmol/L [facility] ([place]) Comment:Testing performed by : [facility], [place], [address] Chloride 101 97 - 110 mmol/L [facility] ([place]) Comment:Testing performed by : [facility], [place], [address] CO2 24 22 - 32 mmol/L [facility] ([place]) Comment:Testing performed by : [facility], [place], [address] Anion gap 11 2 - 15 mmol/L [facility] ([place]) Comment:Testing performed by : [facility], [place], [address] BUN 48(H) 6 - 25 mg/dL [facility] ([place]) Comment:Testing performed by : [facility], [place], [address] Creatinine 1.67(H) 0.60 - 1.10 mg/dL [facility] ([place]) Comment:Testing performed by : [facility], [place], [address] Glucose 380(H) 70 - 199 mg/dL [facility] [...] was last revised 2022. Testing performed by: [facility], [place], [address] Calcium 9.4 8.5 - 10.3 mg/dL [facility] ([place]) Comment:Testing performed by : [place], [address] Bilirubin, total 0.3 0.1 - 1.2 mg/dL [facility] ([place]) Comment:Testing performed by : [facility], [place], [address] Protein, pl 6.4(L) 6.5 - 8.5 g/dL [facility] ([place]) Comment:Testing performed by : [facility], [place], [address] Albumin 4.1 3.5 - 5.0 g/dL [facility] ([facility]) Comment:Testing performed by : [facility], [place], [address] Alk phos 71 40 - 130 Units/L [facility] ([facility]) Comment:Testing performed by : [facility], [place], [address] ALT 19 7 - 45 Units/L [facility] ([facility]) Comment:Testing performed by : [place], [address] AST 18 10 - 45 Units/L [facility] ([facility]) Comment:Testing performed by : [facility], [place], [address] Blood 10/06/2024 9:00 AM CDT 10/06/2024 9:55 AM CDT us Wu Saleem MD LAB BLOOD ORDERABLES Final Re sult [facility] ([facility]) [address] [place] [address] [place] [address] * Screening Mammogram Bilateral W Raul (12/10/2023 [...] her next mammogram. Electronically signed by: NORM LARA CARPENTER Narrative 12/10/2023 4:48 PM CDT EXAMINATION: [...] F with given history of: Osteoporosis Screening. Route Returner/Model: DNage Discovery SL (S/N [id number]) CLINICAL INFORMATION: Current height: 64 inches Maximum [...] Jerzy Velazquez M.D. MF: BREANNA Report ID: [id number] Reading Location: [place] [address] Procedure Note Jerzy Velazquez MD - 11/03/2023 EXAM DESCRIPTION: DEXA AXIAL SKELETON BONE DENSITY 1 OR MORE SITES REASON FOR STUDY: 63 y/o year old F with given history of:Osteoporosis Screening. Route Returner/Model: theDrop (S/N [id number]) CLINICAL INFORMATION: Current height: 64 inches Maximum [...] see below follow up recommendations. [facility] causes of low bone mineral density may [...] Jerzy Velazquez M.D. MF: BREANNA Report ID: [id number] Reading Location: [id number] Sharon Moya MD IMG DXA PROCEDURES Final Resu lt * Hepatitis C antibody Blood (07/23/2023 9:40 AM PLASTER FOREMAN) Pathologist [facility] Hep C Ab Nonreactive Nonreactive D[facility]AN CARROLL Comment:Antibodies to HCV no t detected. Does NOT exclude the possibility of recent exposure to HCV. Current interpretive data was last revised on 22 Blood 07/23/2023 9:40 AM PLASTER FOREMAN 07/23/2023 10:02 AM PLASTER FOREMAN Amadeo Gamez MD LAB MICROBIOLOGY - GENERA L ORDERABLES Final Result [facility] Department [place] [address] * (ABNORMAL) Hemoglobin A1c (10/12/2019 6:42 AM [...] and children were not included. (Diabetes Care 31:9239-8944, 2008). The eAG is not equivalent to a fasting glucose. Blood specimen (specimen) 10/12/2019 6:42 AM CDT 10/13/2019 11:17 AM CDT Kwaku Menezes MD LAB BLOOD ORDERABLES Final Resul t Performing Organization Address City/[facility]/ZIP Co de Phone Number [facility] 1 [facility] Department [place] [address] * (ABNORMAL) Lipid panel (11/20/2018 12:47 AM CDT) Cholesterol 98 30 - 199 mg/dL [facility] ([facility]) Comment: Interpretive Data Ages < or = [...] on 2018. Triglycerides 144 <=149 mg/dL [facility]LE[facility] ([facility]) Comment: Interpretive Data Ages < or [...] CDT 11/20/2018 12:49 AM CDT Narrative [facility] ([facility]) - 11/20/2018 1:38 AM CDT This lipid panel was automatically ordered due to a Troponin-T. The dietary status of the patient at the collection time should be correlated with the lipid results. (Reflex test added by rule GL_MBC_CH_TROPT_LIPID; ag1) Tony Patterson MD LAB BLOOD ORDERABLES Final R esult D[facility]AN KELLY ([facility]) 1 [facility] [place] [address] from Last 3 Months or Most Recently Relevant to Health Maintenance Insurance DR DEVINE [address] [place] [id number] ID[facility] MEDICARE ADVANT[address] [place] [id number] [facility] [place] [address] [address] [place] [phone] [facility]IC[facility] [address] [place] [phone] [facility] [place] [address] Advance Directives For more information, please contact: [phone] * Full Code (Latest Code Status on [...] 11:50 AM 11/24/2018 10:15 PM Care Teams Certified Orthotist Relationship Specialty Start Date End Date Peck, Dominique Traci, EMPLOYMENT SERVICES DIRECTOR [address] [place] [address] [address] [place] [address] PCP - General Nurse Practitioner 11/25/24 Stuart Douglas MD Surgeon Orthopedic Surgery 11/24/18 Wu Saleem MD [address] [place] [address] [address] [place] [address] Gasket Notcher Hematology and Oncology 08/22/24
--- OUTSIDE RECORDS SUMMARY | 2024-12-26 19:08 | XMS_ITS | Encounter Summary ---
Author Organization [facility] Address [address] [facility] [place] [address] Phone Care Team Providers Care Attorney General Name Role Phone Sharon Moya MD Primary Care Provider Chapito Garcia MD Unavailable Radha Mac DPM Unavailable [phone] Encounter Details Date Type Department Care Team (Late st Contact Info) Description 06/05/2024 Nursing Facility [facility] [address] [place] [phone] Tex Vargas, [facility] [address] [place], [place] [id number] Social History Tobacco Use Types Packs/Day Years Used Date Smoking Tobacco: Former Cigarettes 1 12 Smokeless Tobacco: Never Alcohol Use Standard Drinks/Week Comments No 0 (1 standard drink = 0.6 oz pur e alcohol) [facility] Utilities Answer Date Recorded In the past 12 months has [employer] electric, gas, oil, or water [employer] threatened to shut off services in your home? Patient declined 05/25/2024 Social Connection and Isolation Panel Answer Date Recorded In a typical week, how many times do you talk on the phone with family, friends, or neighbors? Patient declined 05/25/2024 How often do you get togethe r with friends or relatives? Patient declined 05/25/2024 How often do you attend yazidism or rastafarian serv ices? Patient declined 05/25/2024 Do you belong to any clubs o r organizations such as yazidism groups, unions, fraternal or athletic groups, or [...] Total Score - Questions 1-9 0 03/2022 [facility] Occupat ional [facility] - Occupational Stress Questionnaire Answer [...] any time in the past 12 m [facility], were you homeless or living in a correction (including now)? Patient declined 05/25/2024 Sexually Active Control Partners Comments Not Currently Comments No Sex and Gender Information Value Date Recorded Sex Assigned at Female 02/22/2023 8:54 AM CDT Legal Sex Female 7:09 PM CDT Gender Identity Female 02/22/2023 8:54 AM CDT Sexual Orientation Not on file documented as of this encounter Progress Notes * Tex Vargas, PAC - 06/05/2024 11:59 PM CST [facility] PROGRESS NOTE Khadra Beltran is a 64 y.o. female at [facility] for rehabilitation. Pt is s/p recent hospitalization from 05/25-05/29/2024 for PNA and UTI and suspected new SDH. Pt was initially sent to [facility] ED for evaluation of poss new Subdural hematoma noted onCTH, after a suspected fall from her wheelchair. She then transferred to higher level of care to [facility] and was seen by neurosurgery at [facility] and deemed to have a chronic SDH. During her hospitalization, she was found to have Community acquired PNA and Urine culture grew Enterococcus organism. Pt was transferred back to [facility] for treatment of her infection. Was seen in consultation by IRINA-Dr. Awad and deemed to have asymptomatic Bacteriauria and no infection in lungs either. Her antibiotics were stopped and pt was discharged back to [facility]. Subjective: Interval History: I am seeing this [...] and moist, no lesion or exudate. - POARCH. Neck: Supple. No JVD, lymphadenopathy thyromegaly or [...] limits Imaging: CTH showed chronic SDH and CORE WINDER MACHINE OPERATOR shunt intact. Assessment/Plan: Physical Deconditioning Resume therapy [...] UTI clinically Idiopathetic Normal Pressure Hydrocephalus with CORE WINDER MACHINE OPERATOR shunt Chronic SDH Seen by neurosurgery at [facility] and deemed to have chronic Subdural hematomas Monitor neuro checks DM type 2 Continue Lantus, Ozempic and sliding scale Monitor blood sugats COPD Not in exacerbation, continue inhalers Anxiety/depression/Bipolar Continue Risperidone and Depakote HTN/HLD Bp stable, continue statin and Norvasc VTE Prophylaxis: activity By: CASPER Velázquez 06/05/24 PATIAL TECHNOLOGIST documented in this encounter Plan of Treatment Upcoming Encounters Date Type Department Care Team (Late st Contact Info) Description 03/29/2025 9:45 AM CDT Office Visit [facility] - Endocr[facility]ology - [place] [address] [place] [address] Chapito Garcia MD #[address] [address] documented as of this encounter Visit Diagnoses Not on filedocumented in this encounter Care Teams Attorney General Relationship Specialty Start Date End Date Sharon Moya MD [address] [place], [place] [id number] PCP - General Internal Medicine 09/16/21 Chapito Garcia MD [address] [address] Consulting Physician Endocrinology 12/25/21 Radha Mac DPM #[address] [address] Consulting Physician Podiatry 05/26/22 documented as of this encounter
--- OUTSIDE RECORDS SUMMARY | 2024-12-26 19:09 | XMS_ITS | Clinical Summary ---
Author Organization [facility] [employer] [facility] [employer] [facility] Address [address] [facility] [address] [place] [address] Phone Care Team Providers Care Mattress Stripper Name Role Phone Sharon Moya MD Primary Care Provider [phone] Encounters Date Type Department Care Team Description 11/24/2024 Documentation Only [facility] [address] [address] Provider, MD Peggy from Last [...] Description 01/15/2025 2:45 PM CDT Office Visit [facility] [address] [facility] [address] [place] [address] Gio Garces MD [address] [place] [address] [address] [place] [address] Health Maintenance Due Date Last Done Comments [...] to complete this topic Insurance Dr [address] [place] [address] UHC Medicare Medicaid [place] Care Teams Mattress Stripper Relationship Specialty Start Date End Date Sharon Moya MD [address] [place] [address] PCP - General Internal Medicine 11/24/24
--- OUTSIDE RECORDS SUMMARY | 2024-12-26 19:09 | XMS_ITS | Encounter Summary ---
Author Organization [facility] Address [address] [facility] [place] [address] Phone Care Team Providers Care Sebd Teacher Name Role Phone Sharon Moya MD Primary Care Provider [phone] Chapito Garcia MD Unavailable Radha Mac DPM Unavailable [phone] Reason for Visit * Reason Comments Medication Refill Encounter Details Date Type Department Care Team (Late st Contact Info) Description 12/26/2024 Refill REPLACED BY [facility] [address] [place] [address] Boni Chavez, SECURITY THREAT ANALYST, BROADCAST OPERATIONS DIRECTOR [address] [place] [address] Medication Refill Social History Tobacco Use Types Packs/Day Years Used Date Smoking Tobacco: Former Cigarettes 1 12 Smokeless Tobacco: Never Alcohol Use Standard Drinks/Week Comments No 0 (1 standard drink = 0.6 oz pur e alcohol) [facility] Utilities Answer Date Recorded In the past 12 months has [employer] electric, gas, oil, or water company threatened [...] declined 05/25/2024 How often do you attend cheondoism or bahai serv ices? Patient declined 05/25/2024 Do you belong to any clubs o r organizations such as cheondoism groups, unions, fraternal or athletic groups, or [...] Recorded Total Score - Questions 1-9 0 /0 03/2022 [facility] Health - Occupational Stress [...] any time in the past 12 m [facility], were you homeless or living in a penitentiary (including now)? Patient declined 05/25/2024 Sexually Active Control Partners Comments Not Currently Comments No Sex and Gender Information Value Date Recorded Sex Assigned at Female 02/22/2023 8:54 AM CDT Legal Sex Female 7:09 PM CDT Gender Identity Female 02/22/2023 8:54 AM CDT Sexual Orientation Not on file documented as of this encounter Miscellaneous Notes * Telephone Encounter - Jenae Ocasio RN - 12/26/2024 4:12 PM CDT Refill denied - See Refusal reason documented in this encounter Plan of Treatment Upcoming Encounters Date Type Department Care Team (Late st Contact Info) Description 03/29/2025 9:45 AM CDT Office Visit [facility] - Endocrinology [facility] #2 [place] [address] Chapito Garcia MD #[address] [address] documented as of this encounter Visit Diagnoses Not on filedocumented in this encounter Care Teams Sebd Teacher Relationship Specialty Start Date End Date Sharon Moya MD [address] [place] [address] PCP - General Internal Medicine 09/16/21 Chapito Garcia MD #[address] [place] [address] Consulting Physician Endocrinology 12/25/21 Radha Mac DPM [address] [phone] Consulting Physician Podiatry 05/26/22 documented as of this encounter
--- OUTSIDE RECORDS SUMMARY | 2024-12-26 19:09 | XMS_ITS | Encounter Summary ---
Author Organization [facility] Address [address] [place] [address] Phone Care Team Providers Care Foundation Maker Name Role Phone Anthony Burks MD Primary Care Provider [phone] Gayle Garcia RN Unavailable Unavailable Sharon Moya MD Primary Care Provider [phone] Chapito Garcia MD Unavailable Radha Mac DPM Unavailable [phone] Encounter Details Date Type Department Care Team (Late st Contact Info) Description 07/30/2021 Lab Requisition [facility] Services [address] [place] [phone] Anthony Burks MD [address] [place] [address] COVID-19 Social History Tobacco Use Types [...] COVID-19? No / Unsure 07/31/2021 11:08 AM GRANITE CUTTER documented as of this encounter Plan of Treatment Upcoming Encounters Date Type Department Care Team (Late st Contact Info) Description 03/29/2025 9:45 AM CDT Office Visit [facility] - Endocrinology [facility] [address] [place] [phone] Chapito Garcia MD [address] [address] documented as of this encounter Procedures Procedure Name Priority Date/Time Associated Diagnosis Comments SARS-COV-2 BY MOLECULAR Routine 07/28/2021 4:00 PM GRANITE CUTTER COVID-19 documented in this encounter Results * SARS-COV-2 BY MOLECULAR (07/28/2021 4:00 PM GRANITE CUTTER) SARSCOV2 NOT DETECTED (Referen ce Range for this test is Not Detected ) [facility] THERMOFISHER FAST DX 07/31/2021 1:24 PM GRANITE CUTTER [facility] Comment:This test was perfor med by a RT-PCR method. Other Non-Phlebotomy Collection / Unknown 07/28/2021 4:00 PM GRANITE CUTTER 07/30/2021 8:28 AM GRANITE CUTTER Narrative [facility] - 07/31/2021 1:24 PM GRANITE CUTTER Authorized Fact Sheets about this test for providers and patients are available at: https://www.fda.gov/medical-devices/uejxwvujz-utknkgkksg-zddnhnr-devices/emergen cy-us e-authorizations us Anthony Burks MD MICROBIOLOGY - GENERAL ORDERAB LES Final Result [facility] [address] [place] [address], [place] documented in this encounter Visit Diagnoses Diagnosis COVID-19 documented in this encounter Additional Health Concerns Infection Onset Date Last Indicated Resolved Time COVID - 19 07/21/2021 07/28/2021 08/17/2021 12:1 6 AM GRANITE CUTTER COVID - 19 10/06/2021 10/06/2021 10/26/2021 12:1 6 AM CDT COVID - 19 06/27/2022 06/27/2022 07/07/2022 12:1 6 AM GRANITE CUTTER Respiratory Rule-Out 06/27/2022 06/27/2022 023 12:16 AM GRANITE CUTTER COVID - 19 04/12/2024 04/12/2024 04/12/2024 4:20 PM CDT COVID - 19 05/22/2024 05/22/2024 05/22/2024 1:03 PM GRANITE CUTTER documented as of this encounter Care Teams Foundation Maker Relationship Specialty Start Date End Date Anthony Burks MD [address] [facility] [address] [place] [address] PCP - General Internal Medicine 12/19/19 09/15/21 Sharon Moya MD [address] [facility] [address] [place] [address] PCP - General Internal Medicine 09/16/21 Gayle Garcia, RN [place] Meat Loiner 08/21/21 02/11/22 Chapito Garcia MD #[address] [phone] Consulting Physician Endocrinology 12/25/21 Radha Mac DPM #[address] [address] Consulting Physician Podiatry 05/26/22 documented as of this encounter
--- OUTSIDE RECORDS SUMMARY | 2024-12-26 19:09 | XMS_ITS | Encounter Summary ---
Author Organization [facility] Address [address] [facility] [place] [address] Phone Care Team Providers Care Linux Vmware Administrator Name Role Phone Sharon Moya MD Primary Care Provider Chapito Garcia MD Unavailable Radha Mac DPM Unavailable [phone] Reason for Visit * Reason Comments Medication Refill Encounter Details Date Type Department Care Team (Late st Contact Info) Description 12/26/2024 Refill [facility] End[facility] #2 [place] [address] Chapito Garcia MD #[address] [address] Medication Refill Social History Tobacco Use Types Packs/Day Years Used Date Smoking Tobacco: Former Cigarettes 1 12 Smokeless Tobacco: Never Alcohol Use Standard Drinks/Week Comments No 0 (1 standard drink = 0.6 oz pur e alcohol) [facility] Utilities Answer Date Recorded In the past 12 months has [employer] electric, gas, oil, or water company threatened [...] How often do you attend anabaptist or advent serv ices? Patient declined 05/25/2024 [...] Score - Questions 1-9 0 /0 03/2022 [facility] Occupat ional Health - Occupational [...] Visit [facility] - Endocrinology - [place] #2 [place] [address] Chapito Garcia MD #[address] [address] documented as of this encounter Visit Diagnoses Not on filedocumented in this encounter Care Teams Linux Vmware Administrator Relationship Specialty Start Date End Date Sharon Moya MD [address] [place], [place] [id number] PCP - General Internal Medicine 09/16/21 Chapito Garcia MD #[address] [address] Consulting Physician Endocrinology 12/25/21 Radha Mac DPM #[address] [phone] Consulting Physician Podiatry 05/26/22 documented as of this encounter
--- OUTSIDE RECORDS SUMMARY | 2024-12-26 19:09 | XMS_ITS | Continuity of Care Document ---
Author Organization [facility] Address [address] [facility] [address] [place] [address] Phone Care Team Providers Care City Carrier Assistant Name Role Phone Sergo FLORES, Jerzy Unavailable [...] Copied on Encounter Office/outpati ent Visit, [facility], [address] [place] [address] [address], [place], [place], [id number], [place] tel:[phone] [facility] No Information [address]. [facility] [place], [place], [id number], [place]. tel:[phone] Referring Provider: Tony Forrester, [address] [place], [address]. tel:[phone] [facility], [address], [place], [place], [id number], tel:[phone] [facility] [place] No Information 8[address] Ces[address] Jimenez. [address] [place], [place], [facility], [place]. tel:[phone] Referring Provider: Dante Simmons OD A, [address] [facility] [address], [place], [place], [facility]. tel:[phone] [facility], [address] [place] [address] [address], [place], [place], [id number], [place] tel:[phone] [facility] [place] No Information 9-[address] 0 Simmons OD Dante. [address] [facility] , [address], [place], [place], [facility], [place]. tel:[phone] [facility], [address] [place] [address] [address], [place], [place], [id number], [place] tel:[phone] [facility] No Information 2-[address] Cesario Jimenez. [address] [place], [place], [facility], [place]. tel:[phone] Referring Provider: Tony Forrester, [address] [place], [place], [facility]. tel:[phone] Office Consultation [facility], [address] [place] [address] [address], [place], [place], [id number], [place] tel:[phone] SEC [facility] No Information 7-200 8 Cesario Jimenez. [address] [place], [place], [facility], [place]. tel:[phone] Referring Provider: Ellis Hearn OD, [address] [facility], [place], [address]. tel:[phone] Family History Family Member Type Diagnosis Age At Onset No Information Payers Payer name Insurance type Covered libertarian ID Authoriza tion(s) Medicare [facility] [id number] Medicaid [facility] [id number] Social History Type Description Quantity Date Captured [...]
--- OUTSIDE RECORDS SUMMARY | 2024-12-26 19:09 | XMS_ITS | Clinical Summary ---
Author Organization [facility] Address [address] [place] [address] Care Team Providers Care Dialysis Rn Name Role Phone Sharon Moya MD Primary Care Provider [phone] Source Comments [facility],non-owned Affiliates and Associated Physician Practices is amultiple site organization consisting of ambulatory clinics and hospital sitesin [place], [place], [place] and [place]. This disclosure is being madepursuant to the Care Everywhere program and may not contain all information available regarding this patient. Last updated 18.[facility] Allergies Active Allergy Reactions Criticality Noted Date [...] fluticasone propionate (Flonase) 50 MCG/ACT nasal spray [place] 2 (two) sprays into each nostril once daily 08/15/19 24 Active Trelegy Ellipta 100-62.5-25 MCG/ACT Inhale 1 (one) puff by mouth once daily 09/07/19 24 Active OneTouch Verio test strip 4 TIMES A DAY Activ e hydrOXYzine HCl (Atarax) 25 MG tablet 1 tablet as needed Orally at night for 30 days Active BD Pen Needle Akanksha 2nd Gen 32G X 4 MM [facility] [place] 1 PEN NEEDLE TO INJECT INSULIN [...] Normal pressure hydrocephalus 05/23/2024 Hydrocephalus managed with REINFORCING ROD LAYER shunt 05/23/2024 Overview (05/23/2024): Inserted 2014 Essential hypertension 05/23/2024 Bipolar 1 disorder 05/23/2024 Seizures 05/23/2024 Insomnia 05/23/2024 Chronic obstructive pulmonar y disease with acute lower respiratory infection 05/23/2024 Asthma 05/23/2024 Anxiety 05/23/2024 Sleep apnea 05/23/2024 BMI 30.0-30.9,adult 05/23/2024 Osteoporosis 05/23/2024 Vitamin D deficiency 05/23/2024 Leukocytosis 05/23/2024 Encounters Date Type Department Care Team Description 10/30/2024 Telephone [facility] - Family Medicine [address] [place] [id number] Sharon Moya MD Med Question; Medication [...] on file Legal Sex Female 9:33 AM [employer] Gender Identity Not on file Sexual Orientation Not on file Last Filed Vital Signs Vital Sign Reading Time Taken Comments Blood Pressure 132/61 05/25/2024 9:05 PM [employer] Pulse 78 05/25/2024 9:05 PM [employer] Temperature 36.6 C (97.9 F) 05/25/2024 7:47 AM [employer] Respiratory Rate 16 05/25/2024 9:05 PM [employer] Oxygen Saturation 96% 05/25/2024 9:05 PM [employer] Inhaled Oxygen Concentration - - Weight 93.4 kg (206 lb) 05/22/2024 9:15 PM [employer] Height 175.3 cm (5' 9) 05/22/2024 9:15 PM [employer] Body Mass Index 30.42 05/22/2024 9:15 PM [employer] Plan of Treatment Upcoming Encounters Date Type Department Care Team (Late st Contact Info) Description 01/23/2025 2:20 PM CDT Office Visit [facility] - Rheumatology [address] [place] [id number] Aracely Gil MD [address] [place] [phone] Health Maintenance Due Date Last Done Comments COLOGUARD (AGES 45-75) - COLON CA SCREENING 1959 COLON MONITORING 1959 COLONOSCOPY - COLON CA SCREENING 1959 CT COLONOGRAPHY - COLON CA SCREENING 1959 Colorectal Cancer Screening 1959 FIT - COLON CA SCREENING 1959 FLEX SIG - COLON CA SCREENING 1959 HIV SCREENING 1974 DTAP/TDAP/TD VACCINES (1 - Tdap) 1978 PNEUMOCOCCAL VACCINE 50+ (1 of 2 - PCV) 1978 PAP SMEAR 1980 ZOSTER VACCINE (1 of 2) 2009 Respiratory Syncytial Virus (RSV) Vaccine Pt: or over 60 yrs (1 - Risk 60-74 years 1-dose series) 2019 COVID-19 VACCINE ( season) 2024 10/25/2023, 10/30/2022, 09/09/2022, Additional history exists DIABETES-FOOT EXAM WITH MONOFILAMENT 05/23/2024 DIABETES - URINE PROTEIN SCREENING 07/12/2024 MEDICARE AW CALENDAR YEAR 2024 DIABETES-HGB A1C 03/14/2025 09/11/2024, [...] FUNCTION PANEL AM Draw 05/25/2024 5:50 AM [employer] Weakness generalized Fever, unspecified fever cause Urinary tract infection without hematuria, site unspecified HEMOGLOBIN A1C DESMOND 05/23/2024 7:12 AM [employer] from Last 3 Months or Most Recently Relevant to Health Maintenance Results * EYE EXAM (08/14/2024) Anatomical Region Laterality Modality Other 08/14/2024 Narrative 08/14/2024 Ordered by an unspecified provider. us Scanned Document SCANNING ONLY Final Result * (ABNORMAL) RENAL FUNCTION PANEL (05/25/2024 5:50 AM [employer]) BUN 37(H) 7 - 26 mg/dL 05/25/2024 7:00 AM [facility] Creatinine 1.58(H) 0.56 - 0.96 mg/dL 05/25/2024 7:00 AM [facility] Sodium 139 136 - 145 mmol/L 05/25/2024 7:00 AM [facility] Potassium 4.3 3.5 - 4.5 mmol/L 05/25/2024 7:00 AM [facility] Chloride 104 98 - 107 mmol/L 05/25/2024 7:00 AM [facility] CO2 25 22 - 29 mmol/L 05/25/2024 7:00 AM [facility] Glucose 292(H) 70 - 99 mg/dL 05/25/2024 7:00 AM [facility] Albumin 2.3(L) 3.4 - 5.0 g/dL 05/25/2024 7:00 AM [facility] Calcium 8.9 8.4 - 10.2 mg/dL 05/25/2024 7:00 AM [facility] Phosphorus 4.2 2.9 - 5.1 mg/dL 05/25/2024 7:00 AM [facility] Anion Gap 10 6 - 16 05/25/2024 7:00 AM [facility] BUN/Creatinine Ratio 23 7 - 23 05/25/2024 7:00 AM [facility] Osmolality Calculated 307(H) 275 - 295 mOsm/kg 05/25/2024 7:00 AM [facility] eGFR by CKD-EPI 36(L) >=90 mL/min/1.7 3 m2 05/25/2024 7:00 AM [facility] Blood BLOOD SPECIMEN / Unknown Lab Venipuncture / Unknown 05/25/2024 5:50 AM [employer] 05/25/2024 6:32 AM [facility] Earnest Grubbs [employer] OPERATOR LAB - CHEMISTRY ORDERABL ES Final Result [address] [id number] [phone] * (ABNORMAL) HEMOGLOBIN A1C (05/23/2024 7:12 AM [facility]) Hemoglobin A1c 7.6(H) <=5.6 % 05/23/2024 12:38 PM [facility] Estimated Average Glucose 171 mg/dL 05/23/2024 12:38 PM [facility] Comment: HbA1c Interpretation: Normal : < 5.7% Pre-diabetes: 5.7-6.4% Diabetes: Equal to or greater than 6.5% Test results diagnostic of diabetes should be repeated for confirmation. Treatment target values recommended by ADA and other clinical organizations should be used to evaluate metabolic control in patients. Reference: [place] [employer], Standards of Care in Diabetes -2020 In patients 70 years and older consider HbA1c target range of 7.0-7.5% (Reference: Lawrence Gray et al. JAMDA. 2012) The Sebia assay for the measurement of HbA1c is a National Glycohemoglobin Standardization Program (NGSP) certified method. Blood BLOOD SPECIMEN / Unknown Venipuncture / Unknown 05/23/2024 7:12 AM [employer] 05/23/2024 8:05 AM [employer] us Gabino Perez MD LAB - CHEMISTRY ORDERABLES Fin al Result Performing Organization Address City/State/[facility] Co de Phone Number [facility] [address] [place] [address], [place] [phone] from Last 3 Months or Most Recently Relevant to Health Maintenance Insurance MEDICARE MEDICAID - OUT OF STATE MEDICARE UHC MANAGED MEDICARE ADV Advance Directives * Full Code (Latest Code Status on File) Date Activated Date Inactivated Comments 05/23/2024 10:57 AM 05/25/2024 10:23 PM Care Teams Dialysis Rn Relationship Specialty Start Date End Date Sharon Moya MD [address] [place] [address] PCP - General Internal Medicine 08/05/23
--- OUTSIDE RECORDS SUMMARY | 2024-12-26 19:09 | XMS_ITS | Referral Summary ---
Author Organization [facility] Address [address] [place] [address] Care Team Providers Care Shuttler Name Role Phone Stuart Douglas MD Unavailable [phone] Wu Saleem MD Unavailable [phone] Dominique Peck NP Primary Care Provider Encounters Date Type Department Care Team Description 12/18/2024 3:00 PM CDT - 12/18/2024 11:59 PM CDT Hospital Encounter [address] [address] Idiopathic normal pressure hydrocephalus (HCC) Discharge Disposition: Discharge to home or self care 12/15/[address] [address] Te Joel 12/13/[address] [address] Chayo Jackson 11/30/2024 Telephone [facility] [address] [place], [place] [id number] Radha Graham PA 11/21/2024 8:30 AM CDT Office Visit [facility] [address] [facility] [address] [place] [id number] Jerzy Edwards MD Idiopathic normal pressure hydrocephalus (CMS/HCC) (Primary Dx); Tremor 10/30/2024 9:15 AM CDT Lab [address] [address] 10/23/2024 10:05 AM CDT Lab [address] [address] 10/06/2024 9:30 AM CDT Lab [facility] [address] [place] [address] Thrombocytopenia, unspecified 10/06/2024 10:00 AM CDT Office Visit [facility] [address] [facility] Medical Office [address] [place] [address] Wu Saleem MD Thrombocytopenia, unspecified (Primary Dx) [...] 1 tablet (150 mcg total) by mouth commercial property manager before breakfast Active furosemide (LASIX) 20 [...] by mouth daily Active miscellaneous medical supply [facility] [employer] 12/25/19 18 Active NEBULIZER AND COMPRESSOR [facility] 04/14/20 21 Active potassium chloride in LR-D5 (dextrose 5% in Lactated Ringer's with potassium chloride 20 mEq/L) 20 mEq/L infusion daily Active underpads pad as directed 03/30/20 18 Active pregabalin (LYRICA) 50 mg capsule 06/06/20 22 Active empty container (BD [employer] Specialist) [facility] 12/10/19 18 Active miconazole 200 mg suppository [...] 06/09/2023 Assessment & Plan (06/09/2023 1:41 PM OUTSIDE ENERGY SALES REPRESENTATIVES): Nasal saline spray (Simply saline, Little Remedies, Twiggs, Whiterocks) 2 second sprays or 2 squeezes into [...] (07/30/2022): Added automatically from request for surgery [id number] Assessment & Plan (08/06/2022 8:36 PM OUTSIDE ENERGY SALES REPRESENTATIVES): Schedule sigmoidoscopy and treatment of hemorrhoids. Hemorrhoids 07/30/2022 Overview (07/30/2022): Added automatically from request for surgery [id number] Coronary artery disease invo [place] coronary artery of [place] heart without angina pectoris 02/25/2022 Coronary artery calcification 02/25/2022 Chronic pain 02/25/2022 Constipation 02/25/2022 Assessment & Plan (08/06/2022 8:43 PM OUTSIDE ENERGY SALES REPRESENTATIVES): Chronic constipation. Start Linzess 72 Mcg daily. [...] Nasal saline spray (Simply saline, Little Remedies, Twiggs, Whiterocks) 2 second sprays or 2 squeezes into [...] future Assessment & Plan (06/03/2021 2:53 PM OUTSIDE ENERGY SALES REPRESENTATIVES): Nasal saline spray (Simply saline, Little Remedies, Twiggs, [place]) 2 second sprays or 2 squeezes into [...] medications Assessment & Plan (07/15/2020 1:19 PM OUTSIDE ENERGY SALES REPRESENTATIVES): Start Nasal saline spray (Simply saline, Little Remedies, Twiggs, [place]iterocks) 2 second sprays or 2 squeezes into [...] daily Assessment & Plan (05/21/2020 10:09 AM OUTSIDE ENERGY SALES REPRESENTATIVES): Nasal saline spray (Simply saline, Little Remedies, Twiggs, [place]iterocks) 2 second sprays or 2 squeezes into [...] 05/21/2020 Assessment & Plan (08/09/2024 8:37 AM OUTSIDE ENERGY SALES REPRESENTATIVES): Finish Doxycycline Follow up as needed Assessment & Plan (06/09/2023 1:40 PM OUTSIDE ENERGY SALES REPRESENTATIVES): Nasal saline spray (Simply saline, Little Remedies, Twiggs, Whiterocks) 2 second sprays or 2 squeezes into [...] needed Assessment & Plan (06/30/2022 10:04 AM OUTSIDE ENERGY SALES REPRESENTATIVES): Nasal saline spray (Simply saline, Little Remedies, Twiggs, [place]iterocks) 2 second sprays or 2 squeezes into [...] prescription Assessment & Plan (07/23/2021 12:07 PM OUTSIDE ENERGY SALES REPRESENTATIVES): Augmentin with a meal twice daily for 10 days, call if no improvement Continue Atrovent 2 sprays into each nostril while looking down over the sink, do not sniff in or blow nose after use for at least 30 minutes 1-2 times daily Assessment & Plan (05/21/2020 8:56 PM OUTSIDE ENERGY SALES REPRESENTATIVES): Nasal saline spray (Simply saline, Little Remedies, Twiggs, Whiterocks) 2 second sprays or 2 squeezes into [...] (10/19/2018): Added automatically from request for surgery [id number] Bilateral primary osteoarthritis of knee 02/03/2017 02/09/2022 [...] week 12/26/2020 How often do you attend [facility] or scientologist services? 1 to 4 times per year 12/26/2020 Do you belong to any clubs o r organizations such as methodist groups, unions, fraternal or athletic groups, or [...] on file Legal Sex Female 12:39 AM OUTSIDE ENERGY SALES REPRESENTATIVES Gender Identity Not on file Sexual Orientation [...] Body Mass Index 29.43 08/09/2024 8:22 AM OUTSIDE ENERGY SALES REPRESENTATIVES Plan of Treatment Not on file Medical Devices Implanted Type Area Portuguese Tutor Device Identifier Shelf Expiration Date Model / Serial / Lot Shunt-11/05/2014 Implanted:2014 by Jerzy Redman MD (Quantity not on file) Shunt Right: Brain [employer] X [id number] / 0 / [id number] [employer] [id number] Attune Cementless Rotate Platform Knee 7 Baseplate Tibial - [id number] Implanted:Qty: 1 on 11/14/2018 by Stuart Douglas MD at [facility] Right: Knee [employer] 08/11/2027 [id number] / / [id number] [employer] [id number] Attune Cruciate Retain Cementless Knee Right 5 Component Femoral - [id number] Implanted:Qty: 1 on 11/14/2018 by Stuart Douglas MD at [facility] Right: Knee [employer] 02/09/2028 [id number] / / [id number] [employer] [id number] Attune 5mm Cruciate Retaining Rotate Platform Knee 5 Insert - [id number] Implanted:Qty: 1 on 11/14/2018 by Stuart Douglas MD at [facility] Right: Knee [employer] 08/11/2023 [id number] / / [id number] Procedures Procedure Name Priority Date/Time Associated Diagnosis [...] HEPATITIS C ANTIBODY Routine 07/23/2023 9:40 AM OUTSIDE ENERGY SALES REPRESENTATIVES Rheumatoid factor positive HEMOGLOBIN A1C Add-On 10/12/2019 [...] for this examination. COMPARISON: 05/22/2024 performed at [facility]. FINDINGS: Assessment limited by onhz-hc-umodqjxd motion artifact and streak artifact. There is [...] Electronically signed by Tomas Thorne M.D. CH: Report ID: [id number] Reading Location: [id number] Procedure Note Tomas Thorne Jr., MD - 12/25/2024 EXAM DESCRIPTION: CT HEAD WO CONTRAST REASON FOR STUDY: Idiopathic normal pressure hydrocephalus F/u on shunt TECHNIQUE: Axial images acquired through the brain without intravenous contrast. Images stored on PACS. Automated exposure control was used asa dose optimization technique for this examination. COMPARISON: 05/22/2024 performed at [facility]. FINDINGS: Assessment limited by bxom-zb-ylehpdov motion artifact and streakartifact. There is a [...] Electronically signed by Tomas Thorne M.D. CH: Report ID: [id number] Reading Location: [id number] Boni Ashley MD IMG CT PROCEDURES Final [...] BLOOD ORDERABLES Final Resul t [facility] [address] [facility] Department [place] [address] * (ABNORMAL) Differential, auto (10/30/2024 9:32 AM CDT) Neutrophil abs 3.45 1.50 - 6.50 K/cumm Imm gran abs 0.06 0.00 - 0.10 K/cumm [facility]) Lymphocyte abs 1.64 0.80 - 3.30 K/cumm [facility] ([place]) Monocyte abs 0.86(H) 0.20 - 0.80 K/cumm [facility] ([place]) Eosinophil abs 0.09 0.00 - 0.50 K/cumm [facility] ([place]) Basophil abs 0.04 0.00 - 0.10 K/cumm [facility] ([place]) Neutrophil pct 56.1 % [facility] ([place]) Comment: Interpretive Data Percent cell count reference [...] 2017. Basophil pct 0.7 % [facility] ([place]) Comment: Interpretive Data Percent cell count reference ranges are not reported, since discordance with absolute values may lead to misinterpretation of CBC data. Current Interpretive Data was last revised on 2017. Blood 10/30/2024 9:32 AM CDT 10/30/2024 9:54 AM CDT us Zelda Malone MD LAB BLOOD ORDERABLES Final Resul t [facility] ([place]) [address] [facility] Department [place] [address] * (ABNORMAL) CBC with auto differential (10/30/2024 [...] NRBC abs 0.00 0.00 - 0.01 K/cumm [facility] ([place]) Blood 10/30/2024 9:32 AM CDT 10/30/2024 9:54 AM CDT Zelda Malone MD LAB BLOOD ORDERABLES Final Resul t Performing Organization Address City/[facility]/ZIP Co de Phone Number [facility] ([place]) [address] [facility] [place] [address] * Valproic acid level, total (10/30/2024 9:32 AM CDT) Pathologist [facility] Valproic Acid 61.4 50.0 - 100.0 mcg/mL Comment: Interpretive Data Therapeutic range: 50-100 mcg/mL Current interpretive data was last revised on 2014 Blood 10/30/2024 9:32 AM CDT 10/30/2024 9:54 AM CDT Zelda Malone MD LAB BLOOD ORDERABLES Final Resul t Performing Organization Address [facility] de Phone Number [facility] ([place]) [address] [place] [address] [place] [address] * (ABNORMAL) Comprehensive metabolic panel (10/30/2024 9:32 AM CDT) Pathologist [facility] Sodium 142 135 - 145 mmol/L Potassium, pl 4.9 3.3 - 4.9 mmol/L [facility] ([place]) Chloride 104 97 - 110 mmol/L [facility] ([place]) CO2 25 22 - 32 mmol/L [facility] ([place]) Anion gap 13 2 - 15 mmol/L [facility] ([place]) BUN 49(H) 6 - 25 mg/dL [facility] ([place]) Creatinine 1.65(H) 0.60 - 1.10 mg/dL [facility] ([place]) Glucose 223(H) 70 - 199 mg/dL [facility] ([place]) Comment: Interpretive Data Fasting glucose >/= [...] MD LAB BLOOD ORDERABLES Final Resul t [facility] ([place]) [address] [facility] [address] Department [place] [address] * (ABNORMAL) eGFR (10/23/2024 10:17 AM CDT) [...] ORDERABLES Final Res ult Performing Organization Address [facility]/ZIP Co de Phone Number [facility] ([place]) [address] [facility] [address] [place] [address] * Protein / creatinine ratio, urine, random (10/23/2024 10:17 AM CDT) Protein, ur, quant 5.7 mg/dL Comment: Interpretive Data No reference range established. Current interpretive data was last revised 2018. Creatinine Ur 54.1 mg/dL [facility] ([place]) Comment: Interpretive Data No reference range established. Current interpretive data was last revised 2018. Protein/creatinin e ratio 105.4 0.0 - 180.0 mg/g CR [facility] ([place]) Urine 10/23/2024 10:1 7 AM CDT 10/23/2024 10:34 AM CDT Uche Phan MD LAB URINE ORDERABLES Final Res ult [facility] ([place]) [address] [facility] [place] [address] * Vitamin D 25 hydroxy (10/23/2024 10:17 AM CDT) Vitamin D 25-OH 40 30 - 80 ng/mL Blood 10/23/2024 10:1 7 AM CDT 10/23/2024 10:32 AM CDT Uche Phan MD LAB BLOOD ORDERABLES Final Res ult [facility] [place]) 1 [facility] [place] [address] * (ABNORMAL) PTH (10/23/2024 10:17 AM CDT) PTH 72(H) 15 - 65 pg/mL Blood 10/23/2024 10:1 7 AM CDT 10/23/2024 10:32 AM CDT Uche Phan MD LAB BLOOD ORDERABLES Final Res ult Performing Organization Address [facility] Co de Phone Number [facility] ([place]) [address] [facility] [place] [address] * (ABNORMAL) Renal function panel (10/23/2024 10:17 AM CDT) Sodium 143 135 - 145 mmol/L Potassium, pl 5.1(H) 3.3 - 4.9 mmol/L [facility] ([place]) Chloride 106 97 - 110 mmol/L [facility] ([place]) CO2 22 22 - 32 mmol/L [facility] ([place]) Anion gap 15 2 - 15 mmol/L [facility] BUN 45(H) 6 - 25 [...] BLOOD ORDERABLES Final Res ult [facility] ([place]) [address] [facility] Department [place] [address] * Differential, auto (10/06/2024 9:15 AM CDT) Neutrophil abs 4.2 1.5 - 6.5 K/cumm Comment:Testing performed by : [facility] [address], Medical Office [facility] [address], [place] [address] Imm gran abs 0.0 0.0 - 0.1 K/cumm [facility] ([place]) Comment:Testing performed by : [facility] [address], Medical Office [facility] [address], [place] [address] Lymphocyte abs 1.5 0.8 - 3.3 K/cumm [facility] ([place]) Comment:Testing performed by : [facility] [address], Medical Office [facility] [address], [place] [address] Monocyte abs 0.7 0.2 - 0.8 K/cumm [facility] ([place]) Comment:Testing performed by : [facility] [address], Medical Office [facility] [address], [place] [address] Eosinophil abs 0.1 0.0 - 0.5 K/cumm [facility] ([place]) Comment:Testing performed by : [facility] [address], Medical Office [facility] [address], [place] [address] Basophil abs 0.0 0.0 - 0.1 K/cumm [facility] ([place]) Comment:Testing performed by : [facility] [address], Medical Office [facility] [address], [place] [address] Neutrophil pct 63.6 % [facility] ([place]) Comment: Interpretive Data Percent cell count reference ranges are not reported, since discordance with absolute values may lead to misinterpretation of CBC data. Current Interpretive Data was last revised on 2022. Testing performed by: [facility] [address], Medical Office [facility] B [facility] [address], [place] [address] Imm gran pct 0.6 % [facility] ([place]) Comment: Interpretive Data Percent cell count reference ranges are not reported, since discordance with absolute values may lead to misinterpretation of CBC data. Current Interpretive Data was last revised on 2022. Testing performed by: [facility] [address], Medical Office [facility] [address], [place] [address] Lymphocyte pct 22.8 % [facility] ([place]) Comment: Interpretive Data Percent cell count reference ranges are not reported, since discordance with absolute values may lead to misinterpretation of CBC data. Current Interpretive Data was last revised on 2022. Testing performed by: [facility] [address], Medical Office [facility] [address], [place] [address] Monocyte pct 10.9 % [facility] ([place]) Comment: Interpretive Data Percent cell count reference ranges are not reported, since discordance with absolute values may lead to misinterpretation of CBC data. Current Interpretive Data was last revised on 2022. Testing performed by: [facility] [address], Medical Office [facility] B [facility] [address], [place] [address] Eosinophil pct 1.5 % [facility] ([place]) Comment: Interpretive Data Percent cell count reference ranges are not reported, since discordance with absolute values may lead to misinterpretation of CBC data. Current Interpretive Data was last revised on 2022. Testing performed by: [facility] [address], Medical Office [facility] B [facility] [address], [place] [address] Basophil pct 0.6 % [facility] ([place]) Comment: Interpretive Data Percent cell count reference ranges are not reported, since discordance with absolute values may lead to misinterpretation of CBC data. Current Interpretive Data was last revised on 2022. Testing performed by: [facility] [address], Medical Office [facility] [address], [place] [address] Blood 10/06/2024 9:15 AM CDT 10/06/2024 9:23 AM CDT us Wu Saleem MD LAB BLOOD ORDERABLES Final Re sult [facility] ([place]) [address] [facility] [place] [address] * (ABNORMAL) CBC with auto differential (10/06/2024 9:15 AM CDT) WBC 6.5 3.8 - 9.9 K/cumm Comment:Testing performed by : [facility] [address], Medical Office [facility] [address], [place] [address] Hgb 13.2 11.9 - 15.5 g/dL [facility] ([place]) Comment:Testing performed by : [facility] [address], Medical Office [facility] [address], [place] [address] Hct 41.9 35.6 - 45.5 % [facility] ([place]) Comment:Testing performed by : [facility] [address], Medical Office [facility] [address], [place] [address] Plt 126(L) 150 - 400 K/cumm [facility] ([place]) Comment:Testing performed by : [facility] [address], Medical Office [facility] [address], [place] [address] MPV 11.3 9.1 - 12.3 fL [facility] ([place]) Comment:Testing performed by : [facility] [address], Medical Office [facility] [address], [place] [address] RBC 4.31 3.90 - 5.20 M/cumm [facility] ([place]) Comment:Testing performed by : [facility] [address], Medical Office [facility] [address], [place] [address] MCV 97.2(H) 81.3 - 96.4 fL [facility] ([place]) Comment:Testing performed by : [facility] [address], Medical Office [facility] [address], [place] [address] MCH 30.6 27.1 - 33.3 pg [facility] ([place]) Comment:Testing performed by : [facility] [address], Medical Office [facility] [address], [place] [address] MCHC 31.5(L) 32.3 - 35.7 g/dL [facility] ([place]) Comment:Testing performed by : [facility] [address], Medical Office [facility] [address], [place] [address] RDW CV 14.6 11.1 - 14.9 % [facility] ([place]) Comment:Testing performed by : [facility] [address], Medical Office [facility] [address], [place] [address] RDW SD 53.2(H) 35.7 - 48.1 fL [facility] ([place]) Comment:Testing performed by : [facility] [address], Medical Office [facility] B [facility] [address], [place] [address] NRBC abs Not Measured 0.00 - 0.01 K/cumm [facility] ([place]) Comment:Testing performed by : [facility] [address], Medical Office [facility] B [facility] [address], [place] [address] Blood 10/06/2024 9:15 AM CDT 10/06/2024 9:23 AM CDT us Wu Saleem MD LAB BLOOD ORDERABLES Final Re sult [facility] ([place]) [address] [facility] [place] [address] * (ABNORMAL) eGFR (10/06/2024 9:00 AM CDT) [...] was last reviewed 2021. Testing performed by: [place], [address] Blood 10/06/2024 9:00 AM CDT 10/06/2024 9:55 AM CDT us Wu Saleem MD LAB BLOOD ORDERABLES Final Re sult [facility] ([place]) [address] [facility] Department [place] [address] * (ABNORMAL) Comprehensive metabolic panel (10/06/2024 9:00 AM CDT) Sodium 136 135 - 145 mmol/L Comment:Testing performed by : [place], [address] Potassium, pl 5.3(H) 3.3 - 4.9 mmol/L [facility] ([place]) Comment:Testing performed by : [place], [address] Chloride 101 97 - 110 mmol/L [facility] ([place]) Comment:Testing performed by : [place], [address] CO2 24 22 - 32 mmol/L [facility] ([place]) Comment:Testing performed by : [place], [address] Anion gap 11 2 - 15 mmol/L [facility] ([place]) Comment:Testing performed by : [facility], [place], [address] BUN 48(H) 6 - 25 mg/dL [facility] ([place]) Comment:Testing performed by : [facility], [place], [address] Creatinine 1.67(H) 0.60 - 1.10 mg/dL [facility] ([place]) Comment:Testing performed by : [facility], [place], [address] Glucose 380(H) 70 - 199 mg/dL [facility] [...] was last revised 2022. Testing performed by: [facility], [place], [address] Calcium 9.4 8.5 - 10.3 mg/dL [facility] ([place]) Comment:Testing performed by : [facility], [place], [address] Bilirubin, total 0.3 0.1 - 1.2 mg/dL [facility] ([place]) Comment:Testing performed by : [place], [address] Protein, pl 6.4(L) 6.5 - 8.5 g/dL [facility] ([place]) Comment:Testing performed by : [facility], [place], [address] Albumin 4.1 3.5 - 5.0 g/dL [facility] ([place]) Comment:Testing performed by : [facility], [place], [address] Alk phos 71 40 - 130 Units/L [facility] ([place]) Comment:Testing performed by : [facility], [place], [address] ALT 19 7 - 45 Units/L [facility] ([place]) Comment:Testing performed by : [facility], [facility], [place], [address] AST 18 10 - 45 Units/L [facility] ([place]) Comment:Testing performed by : [facility], [facility], [place], [address] Blood 10/06/2024 9:00 AM CDT 10/06/2024 9:55 AM CDT us Wu Saleem MD LAB BLOOD ORDERABLES Final Re sult [facility] ([place]) [address] [facility] Department [place] [address] * Screening Mammogram Bilateral W Raul (12/10/2023 [...] her next mammogram. Electronically signed by: NORM Markham 12/10/2023 4:48 PM CDT EXAMINATION: SCREENING MAMMOGRAM [...] F with given history of: Osteoporosis Screening. Portuguese Tutor/Model: MessageCast (S/N [id number]) CLINICAL INFORMATION: Current height: 64 inches Maximum [...] Jerzy Velazquez M.D. MF: BREANNA Report ID: [id number] Reading Location: [place] [address] Procedure Note Jerzy Velazquez MD - 11/03/2023 EXAM DESCRIPTION: DEXA AXIAL SKELETON BONE DENSITY 1 OR MORE SITES REASON FOR STUDY: 63 y/o year old F with given history of:Osteoporosis Screening. Portuguese Tutor/Model: Whotever SL (S/N [id number]) CLINICAL INFORMATION: Current height: 64 inches Maximum [...] Jerzy Velazquez M.D. MF: BREANNA Report ID: [id number] Reading Location: [place] [address] Sharon Moya MD IMG DXA PROCEDURES Final Resu lt * Hepatitis C antibody Blood (07/23/2023 9:40 AM OUTSIDE ENERGY SALES REPRESENTATIVES) [facility] Hep C Ab Nonreactive Nonreactive [facility] Comment:Antibodies to HCV no t detected. Does NOT exclude the possibility of recent exposure to HCV. Current interpretive data was last revised on 22 Blood 07/23/2023 9:40 AM OUTSIDE ENERGY SALES REPRESENTATIVES 07/23/2023 10:02 AM OUTSIDE ENERGY SALES REPRESENTATIVES Amadeo Gamez MD LAB MICROBIOLOGY - GENERA L ORDERABLES Final Result [facility] [place] [address] * (ABNORMAL) Hemoglobin A1c (10/12/2019 6:42 AM CDT) [facility] Hgb A1C 7.7(H) 4.0 - 5.6 % [facility] ([place]) Estimated Average Glucose 174 mg/dL [facility] ([place]) Comment: The ADA recommends reporting an estimated Average Glucose (eAG) with all Hemoglobin A1c results using the equation derived from a study of 507 normal and diabetic adults. Minority populations were underrepresented and children were not included. (Diabetes Care 31:0752-1804, 2008). The eAG is not equivalent to a fasting glucose. Blood specimen (specimen) 10/12/2019 6:42 AM CDT 10/13/2019 11:17 AM CDT Kwaku Menezes MD LAB BLOOD ORDERABLES Final Resul t [facility] ([place]) [address] [facility] Department [place] [address] * (ABNORMAL) Lipid panel (11/20/2018 12:47 AM [...] BLOOD ORDERABLES Final R esult [facility] ([place]) [address] [facility] Department [place] [address] from Last 3 Months or Most Recently Relevant to Health Maintenance Insurance [facility] [facility] [facility] Address: [address] [address] [place] [address] [facility] [address] DEVINE [address] [place] [address] DEV[address] [place], [place] [id number] [facility] Address: [address] [address] [place] [address] [employer] Advance Directives For more information, please contact: [phone] * Full Code (Latest Code Status on [...] 11:50 AM 11/24/2018 10:15 PM Care Teams Shuttler Relationship Specialty Start Date End Date Dominique Peck NP [address] [place] [address] DR GARDINER [address] Y[address] [place] [address] PCP - General Nurse Practitioner 11/25/24 Stuart Douglas MD Surgeon Orthopedic Surgery 11/24/18 Wu Saleem MD [address] [place] [address] [address] [place] [address] Insurance Specialist Hematology and Oncology 08/22/24
--- OUTSIDE RECORDS SUMMARY | 2024-12-26 19:09 | XMS_ITS | Encounter Summary ---
Author Organization [facility] Address [address] [facility] [place] [address] Phone Care Team Providers Care Clip Loading Machine Feeder Name Role Phone Sharon Moya MD Primary Care Provider Chapito Garcia MD Unavailable Radha Mac DPM Unavailable Reason for Visit * Reason Comments Medication Refill Encounter Details Date Type Department Care Team (Late st Contact Info) Description 09/16/2023 Refill [facility] - Endocrinology [facility] [address] [place] [address] Chapito Garcia MD [address] [address] Medication Refill Social History Tobacco [...] Margo Abreu, RN - 09/16/2023 8:12 AM BOOT LINER MAKER Requested Prescriptions Pending Prescriptions Disp Refills OneTouch Verio Strip [Pharmacy Med Name: ONE TOUCH VERIO TEST STRIP] 400 Strip 3 Si TIMES A DAY Next appt: 12/17/2023 LINER MAKER documented in this encounter Plan of Treatment Upcoming Encounters Date Type Department Care Team (Late st Contact Info) Description 03/29/2025 9:45 AM CDT Office Visit [facility] - Endocrinology - [place] [address] [place] [id number] Chapito Garcia MD [address] [phone] documented as of this encounter Visit Diagnoses Diagnosis Type 2 diabetes mellitus with diabetic polyneuropathy, with long-term current use of insulin (HCC) documented in this encounter Additional Health Concerns Infection Onset Date Last Indicated Resolved Time COVID - 19 04/12/2024 04/12/2024 04/12/2024 4:20 PM CDT COVID - 19 05/22/2024 05/22/2024 05/22/2024 1:03 PM BOOT LINER MAKER documented as of this encounter Care Teams Clip Loading Machine Feeder Relationship Specialty Start Date End Date Sharon Moya MD [address] [place], [place] [id number] PCP - General Internal Medicine 09/16/21 Chapito Garcia MD [address] [phone] Consulting Physician Endocrinology 12/25/21 Radha Mac DPM #[address] [phone] Consulting Physician Podiatry 05/26/22 documented as of this encounter
--- OUTSIDE RECORDS SUMMARY | 2024-12-26 19:10 | XMS_ITS | Continuity of Care Document ---
Author Organization [facility] Address [address] [place] [address] Phone Care Team Providers Care Solar Thermal Technician Name Role Phone Sergo FLORES, Jerzy [...] Copied on Encounter Office/outpati ent Visit, Est [facility], [address] [place] [address] [address], [place], [place], [id number], [place] tel:[phone] SEC [facility] No Information [address] Bertrand. [facility] [place], [place], [address], [place]. tel:[phone] Referring Provider: Tony Forrester, [address] [place], [address]. tel:[phone] [facility], [address], [place], [place], [id number], tel:[phone] SEC [facility] [place] No Information 8-201 0 Cesario Jimenez. [address] [place], [place], [facility], [place]. tel:[phone] Referring Provider: Dante Simmons OD A, [address] [facility] [address], [place], [place], [facility]. tel:[phone] [facility] Eye [facility], [id number] [place] [address] [address], [place], [place], [address], [place] tel:[phone] SEC [facility] [place] No Information 9-201 0 Simmons OD Dante. [address] [facility] , [address], [place], [place], [facility], [place]. tel:[phone] [facility] Eye [facility], [address] [place] [address] [address], [place], [place], [address], [place] tel:[phone] SEC [facility] No Information 2-200 9 Cesario Jimenez. [address] [place], [place], [facility], [place]. tel:[phone] Referring Provider: Tony Forrester, [address] [place], [place], [facility]. tel:[phone] Office Consultation [facility], [address] [place] [address] [address], [place], [place], [address], [place] tel:[phone] SEC [facility] No Information 7-200 8 Cesario Jimenez. [address] [place], [place], [facility], [place]. tel:[phone] Referring Provider: Ellis Hearn OD, [address] [facility], [place], [address]. tel:[phone] Family History Family Member Type Diagnosis Age At Onset No Information Payers Payer name Insurance type Covered democrat ID Authoriza tion(s) Medicare [facility] [id number] Medicaid [facility] [id number] Social History Type Description Quantity Date Captured [...]
--- OUTSIDE RECORDS SUMMARY | 2024-12-26 19:10 | XMS_ITS | Continuity of Care Document ---
Author Organization [facility] Address [address] [address] [place] [address] Phone Care Team Providers Care Mercury Cell Cleaner Name Role Phone Thad Villatoro MD Unavailable [...] Diagnoses Date Provider Providers Copied on Encounter [facility], [address], [place], [place], [id number], [place] tel:[phone] [facility] No Information Irving Oneil. [address], [place], [place], [address] , [place]. tel:[phone] [facility], [address], [place], [place], [address], [place] [phone] [facility] No Information 7 Irving Oneil. [address], [place], [place], [address] , [place]. tel:[phone] OFFICE/OUTPA TIENT VISIT, [facility], [address], [place], [place], [address], [place] tel:[phone] [facility] osteoporosis1 (chief complaint)HLP (chief complaint)kne e pian1 (chief complaint)DM (chief complaint)all ergy1 (chief complaint) HyperlipidemiaOs teoporosisType 2 diabetes mellitus without complicationsChr onic pain syndrome Irving Oneil. [address], [place], [place], [address] , [place]. tel:[phone] Referring Provider: Giovani Manning A, [place], [place], [address]. tel:[phone] OFFICE/OUTPA TIENT VISIT, [facility], [address], [place], [place], [address], [place] tel:[phone] [facility] DM (chief complaint)HLP (chief complaint)ramon al funciton (chief complaint) HyperlipidemiaTy pe 2 diabetes mellitus without complicationsRen al disease Irving Duran [address], [place], [place], [address] , [place]. tel:[phone] Referring Provider: Giovani Manning [address], [place], [place], [address]. tel:[phone] OFFICE/OUTPA TIENT VISIT, [facility], [address], [place], [place], [address], [place] tel:[phone] [facility] GERD1 (chief complaint)ost eoporosis1 (chief complaint)kne e pain1 (chief complaint)hyp othyroidism (chief complaint) HypothyroidismGE RD w/o esophagitisOsteo porosisChronic pain syndrome Irving Duran [address], [place], [place], [address] , [place]. tel:[phone] Referring Provider: Thad Villatoro [address] [facility], [place], [place], [address]. tel:[phone] [facility], [facility] [address], [address], tel:[phone] [facility] No Information Irving Duran [address], [address], [place], [place], [address] , [place]. tel:[phone] OFFICE/OUTPA TIENT VISIT, [facility], [address], [place], [place], [address], [place] tel:[phone] [facility] hydrocephlus (chief complaint)DM1 (chief complaint)hyp othyroidism1 (chief complaint)ost eoporosis1 (chief complaint)chr onic pain1 (chief complaint) Type 2 diabetes mellitus without complicationsGER D w/o esophagitisHypot hyroidismOsteopo rosis Irving Duran [address], [address], [place], [place], [address] , [place]. tel:[phone] Referring Provider: Giovani Manning [facility] A, [place], [place], [address]. tel:[phone] Family History Family Member Type Diagnosis Age [...]
[2024-12-26 19:27] VITALS: BP 129/72; PULSE 89; RESP 20; TEMP 36.4; O2SAT 98
--- NOTE | 2024-12-26 19:33 | ED.FEMALEGU ---
HPI - Female Genitourinary General Chief complaint: Urogenital-Female Stated complaint: Urinary Problem Source: patient Mode of arrival: ambulatory Limitations: no limitations History of Present Illness HPI Narrative: Patient is a 62 year old female who presents the clinic with dysuria x 1 day. She states that she currently has a urologist appointment on . Denies taking anything [id number]. Patient was seen in [facility] on December 07 and December 19. Both visits she was treated with antibiotics. Denies any shortness of breath, fever, chills, nausea, vomiting, or diarrhea. Related Data Home Medications ?Medication ?Instructions ?Recorded ?Confirmed ?Last Taken ?Type ascorbate calcium (vitamin C) 500 500 mg PO DAILY 01/02/22 10/26/24 Unknown History mg tablet calcium 600 mg (as 1 cap PO DIRECTED 01/02/22 10/26/24 Unknown History carbonate)-vitamin D3 12.5 mcg (500 unit) capsule (Calcium with Vit D3) hydrochlorothiazide 25 mg tablet 25 mg PO BID 01/02/22 10/26/24 Unknown History hydroxyzine HCl 25 mg tablet 25 mg PO BID PRN Itching 01/02/22 10/26/24 Unknown History lisinopril 20 mg tablet 20 mg PO BID 01/02/22 10/26/24 Unknown History linaclotide 72 mcg capsule 72 mcg PO QAM 08/10/22 10/26/24 Unknown History (Linzess) atorvastatin 20 mg tablet 20 mg PO DAILY 05/31/23 10/26/24 Unknown History citalopram 20 mg tablet 20 mg PO DAILY 05/31/23 10/26/24 Unknown History trimethoprim 100 mg tablet 100 mg PO DAILY 05/31/23 10/26/24 Unknown History alendronate 70 mg tablet 70 mg PO DAILY 06/22/23 10/26/24 Unknown History amlodipine 5 mg tablet 5 mg PO DAILY 08/03/23 10/26/24 Unknown History buspirone 15 mg tablet 15 mg PO DAILY 08/03/23 10/26/24 Unknown History divalproex 500 mg tablet,delayed 500 mg PO QID 08/03/23 10/26/24 Unknown History release famotidine 40 mg tablet 40 mg PO DAILY 08/03/23 10/26/24 Unknown History fluticasone fur. 200 mcg-umeclid 1 inh inhalation DAILY 08/03/23 10/26/24 Unknown History 62.5 mcg-vilant 25 mcg inhalat.powder (Trelegy Ellipta) fluticasone propionate 50 1 spray intranasal BID 08/03/23 10/26/24 Unknown History mcg/actuation nasal spray,suspension insulin glargine 100 unit/mL (3 16 unit subcut QPM 08/03/23 10/26/24 Unknown History mL) subcutaneous pen (Lantus Solostar U-100 Insulin) insulin lispro 100 unit/mL 28 unit subcut TID 08/03/23 10/26/24 Unknown History subcutaneous pen (Humalog KwikPen (U-100) Insulin) ipratropium bromide 21 mcg (0.03 2 spray intranasal DAILY 08/03/23 10/26/24 Unknown History %) nasal spray levothyroxine 150 mcg tablet 150 mcg PO DAILY 08/03/23 10/26/24 Unknown History risperidone 0.5 mg tablet 0.5 mg PO DAILY 08/03/23 10/26/24 Unknown History tamsulosin 0.4 mg capsule 0.4 mg PO BID 08/03/23 10/26/24 Unknown History semaglutide 0.25 mg or 0.5 mg (2 0.25 mg subcut WEEKLY 04/03/24 10/26/24 Unknown History mg/3 mL) subcutaneous pen injector (Ozempic) estradiol 0.01% (0.1 mg/gram) vaginal 12/07/24 Unknown History vaginal cream primidone 50 mg tablet mg 12/07/24 Unknown History terconazole 0.4 % vaginal cream vaginal 12/07/24 Unknown History fluticasone fur. 100 mcg-umeclid inhalation 12/26/24 Unknown History 62.5 mcg-vilant 25 mcg inhalat.powder (Trelegy Ellipta) semaglutide 1 mg/dose (4 mg/3 mL) mg subcut 12/26/24 Unknown History subcutaneous pen injector (Ozempic) Allergies Allergy/AdvReac Type Severity Reaction Status Date / Time carbamazepine Allergy Mild Unknown Verified 12/19/24 15:47 meperidine Allergy Mild Unknown Verified 12/19/24 15:47 prednisone Allergy Mild Unknown Verified 12/19/24 15:47 Review of Systems Review of Systems: CONSTITUTIONAL: Denies body aches, fever, chills, or sweats. CARDIOVASCULAR: Denies chest pain, palpitations, or edema. RESPIRATORY: Denies cough or dyspnea. GASTROINTESTINAL: Denies abdominal pain, nausea, vomiting, or diarrhea. GENITOURINARY: Reports dysuria. Denies frequency, urgency, hematuria, flank pain, discharge. SKIN: Denies rash, itching, or wounds. MUSCULOSKELETAL: Denies back pain or myalgia. All systems reviewed & are unremarkable except as noted in HPI and below PMFSH Past Medical History Medical History Sleep apnea Seizures Bipolar 1 disorder Chronic kidney disease, stage IV (severe) Depression Anxiety COPD (chronic obstructive pulmonary disease) Brain damage Hypothyroidism Hypertension Diabetes Brain ventricular shunt displacement Surgical History Surgical History History of brain shunt History of right knee joint replacement History of appendectomy S/P cholecystectomy H/O: hysterectomy 1991 Family History Family History Father Alcoholism Asthma Diabetes mellitus Hypertension Social History Social History Smoking status: Former smoker Tobacco type: cigarettes Alcohol intake: never Substance use: never Do You Feel Safe in your Home?: Yes Lack of Transportation: No Lack of Food: Sometimes True Current Housing: I Have Housing Concerned About Future Housing: No Difficulty Paying Gas/Electric Bills: YES Difficulty Paying for Meds: No Currently Unemployed: No Education: High School Diploma/GED Difficulty w/ Childcare or Family Care: No Gender identity (if verbalized by the patient): Female Spiritual care concerns: No Comments At time of signature, I have reviewed and agree with nursing past medical, surgical, social and family history unless otherwise noted. Please see nursing chart for further information. There is no relevant family history pertinent to the presenting complaint. Exam Narrative: GENERAL: Well-appearing and in no acute distress. ENT: Mucous membranes pink and moist. NECK: Normal AROM. ?Supple. ? CHEST: ?No respiratory distress. Clear to auscultation. HEART: Regular rate and rhythm. ABDOMEN: Soft, nontender, nondistended, normal active bowel sounds. ?No CVA tenderness. : Patient deferred exam. SKIN: Warm, dry, no rash. NEURO: No focal deficits. Alert and oriented x3. Gait steady. PSYCH: ?Normal affect. ? Course Course Level of Care: Express Care Visit Vital Signs Vital signs: Vital Signs Temperature 97.6 F 12/26/24 19:27 Pulse Rate 89 12/26/24 19:27 Respiratory Rate 20 12/26/24 19:27 Blood Pressure 129/72 12/26/24 19:27 Pulse Oximetry 98 12/26/24 19:27 Oxygen Delivery Room Air 12/26/24 19:27 Temperature 97.6 F 12/26/24 19:27 Pulse Rate 89 12/26/24 19:27 Respiratory Rate 20 12/26/24 19:27 Blood Pressure 129/72 12/26/24 19:27 Pulse Oximetry 98 12/26/24 19:27 Oxygen Delivery Room Air 12/26/24 19:27 Reviewed. MDM - Female Genitourinary MDM Narrative Medical decision making narrative: Discussed physical exam findings and importance of her following up with urologist on . Advised supportive measures and signs/symptoms to go to the ER. Pt is appropriate for outpatient treatment and follow up. Differential Diagnosis Differential diagnosis: Likely urinary tract infection, vaginitis and cystitis Critical Care Time Critical Care Time Critical Care Time: No Discharge Plan Discharge Clinical Impression: Burning with urination Patient Disposition: Home Condition: Stable Instructions: Urinary Tract Infection in Women (DC) Additional Instructions: Your urine will be sent of for a culture to determine if bacteria is causing your symptoms. If the culture shows a UTI, you will be notified and an antibiotic will be called in for you. Please keep your appointment with your urologist on and be sure to follow up. In addition you will need to follow up with your PCP for further evaluation and treatment if symptoms persist, call today to schedule follow-up appointment. Go to the ER for any worsening symptoms or concerns. Patient Language: Estonian Prescriptions: No Action atorvastatin 20 mg tablet 20 mg PO DAILY trimethoprim 100 mg tablet 100 mg PO DAILY citalopram 20 mg tablet 20 mg PO DAILY alendronate 70 mg tablet 70 mg PO DAILY terconazole 0.4 % cream VAGINAL primidone 50 mg tablet estradiol 0.01 % (0.1 mg/gram) cream VAGINAL amoxicillin-pot clavulanate 875-125 mg tablet 1 tablet PO Q12H 7 Days Qty: 14 0RF Trelegy Ellipta 100-62.5-25 mcg blister with device INHALATION Ozempic 1 mg/dose (4 mg/3 mL) pen injector SUBCUT ipratropium bromide 21 mcg (0.03 %) spray,non-aerosol 2 spray INTRANASAL DAILY famotidine 40 mg tablet 40 mg PO DAILY amlodipine 5 mg tablet 5 mg PO DAILY divalproex 500 mg tablet,delayed release (DR/EC) 500 mg PO QID tamsulosin 0.4 mg capsule 0.4 mg PO BID levothyroxine 150 mcg tablet 150 mcg PO DAILY fluticasone propionate 50 mcg/actuation spray,suspension 1 spray INTRANASAL BID risperidone 0.5 mg tablet 0.5 mg PO DAILY buspirone 15 mg tablet 15 mg PO DAILY insulin glargine [Lantus Solostar U-100 Insulin] 100 unit/mL (3 mL) insulin pen 16 unit SUBCUT QPM insulin lispro [Humalog KwikPen Insulin] 100 unit/mL insulin pen 28 unit SUBCUT TID Trelegy Ellipta 200-62.5-25 mcg Blister With Device 1 inh INHALATION DAILY Ozempic 0.25 mg or 0.5 mg (2 mg/3 mL) pen injector 0.25 mg SUBCUT WEEKLY doxycycline hyclate 100 mg tablet 100 mg PO BID 5 Days Qty: 10 0RF hydrochlorothiazide 25 mg tablet 25 mg PO BID lisinopril 20 mg tablet 20 mg PO BID hydroxyzine HCl 25 mg tablet 25 mg PO BID PRN (Reason: Itching) calcium carbonate-vitamin D3 [Calcium 600 with Vitamin D3] 600 mg-12.5 mcg (500 unit) capsule 1 cap PO DIRECTED ascorbate calcium (vitamin C) 500 mg tablet 500 mg PO DAILY Linzess 72 mcg capsule 72 mcg PO QAM estradiol [Yuvafem] 10 mcg tablet 10 mcg vaginal 2XW Qty: 24 3RF furosemide 40 mg tablet 40 mg PO BID Qty: 60 1RF Follow-up/Referrals: Dominique Peck RN [Primary Care Provider] - Time of Disposition: 19:39
[2024-12-26 19:43] LABS: EDUAAPPEAR Clear; EDUABILI Negative (Negative); EDUABLOOD Negative (Negative); EDUACOLOR1 Yellow; EDUAGLUCOSE Negative (Negative); EDUAKETONE Negative (Negative); EDUALEUKO Negative (Negative); EDUANITRATE Negative (Negative); EDUAPH 5.5; EDUAPROTEIN Negative (Negative); EDUAUROBILI 0.2
== END 2024-12-26 19:56 | disposition home or self-care (01) ==
DX: R30.0 Dysuria (principal); G40.909 Epilepsy, unspecified, not intractable, without status epilepticus; I12.9 Hypertensive chronic kidney disease with stage 1 through stage 4 chronic kidney disease, or unspecified chronic kidney disease; E11.22 Type 2 diabetes mellitus with diabetic chronic kidney disease; N18.4 Chronic kidney disease, stage 4 (severe); Z79.4 Long term (current) use of insulin; Z79.85 Long-term (current) use of injectable non-insulin antidiabetic drugs; J44.9 Chronic obstructive pulmonary disease, unspecified; F41.9 Anxiety disorder, unspecified; F31.9 Bipolar disorder, unspecified; Z98.2 Presence of cerebrospinal fluid drainage device; Z96.651 Presence of right artificial knee joint; Z87.891 Personal history of nicotine dependence
CPT/HCPCS: 81003; 87086; 99213; G0463

== ENCOUNTER 2025-04-06 14:56 | Emergency (ER) | payer MEDICARE, MEDICAID, SELFPAY ==
--- OUTSIDE RECORDS SUMMARY | 2010-06-04 04:00 | XMS_ITS | Continuity of Care Document ---
Author Organization [facility] Address [address] [facility] [address] [place] [address] Phone Care Team Providers Care Supervisor Maintenance And Custodians Name Role Phone Sergo FLORES, Jerzy Unavailable Unavailable Procedures Procedure Date Office/outpatient Visit, Est Dilated Retinal Exam W Interpretation No I[facility]Master Eye Exam & Treatment Ophthalmoscopy, Subsequent Ophthalmoscopy, Subsequent Dilated Retinal Exam W Interpretation No Dilated Macular Or Fundus Exam Findings Communicat Macular Or Fundus Exam Performed 2009 Communication Performed Eye Exam & Treatment Dilated Retinal Exam W Interpretation No Eye Exam Established Pt Dilated Retinal Exam W Interpretation No No Script Office Consultation Advance Directives Directive Yes / No Effective Date File Name No Information Encounters Encounter Description Practice Location Reason(s) For Visit Diagnoses Date Provider Providers Copied on Encounter Office/outpati ent Visit, Est [facility], [address] [place] [address] [address], [place], [place], [id number], [place] tel:[phone] [facility] No Information 201 0 Sergo Bertrand. [facility] [place], [place], [id number], [place]. tel:[phone] Referring Provider: Tony Forrester, [address] [place], [address]. tel:[phone] [facility], [address], [place], [place], [id number], tel:[phone] [facility] No Information 8-201 0 Cesario Jimenez. [address], [place], [facility], [place]. tel:[phone] Referring Provider: Dante Simmons OD A, [address] [facility] [address], [place], [place], [facility]. tel:[phone] [facility], [address] [place] [address] [address], [place], [place], [id number], [place] tel:[phone] [facility] [place] No Information 9-201 0 Simmons OD Dante. [address] [facility] , [address], [place], [place], [facility], [place]. tel:[phone] [facility], [address] [place] [address] [address], [place], [place], [id number], [place] tel:[phone] [facility] No Information 2-200 9 Cesario Jimenez. [address], [place], [facility], [place]. tel:[phone] Referring Provider: Tony Forrester, [address] [place], [place], [facility]. tel:[phone] Office Consultation [facility], [address] [place] [address] [address], [place], [place], [id number], [place] tel:[phone] [facility] No Information 7-200 8 Cesario Jimenez. [address], [place], [facility], [place]. tel:[phone] Referring Provider: Ellis Hearn OD, [address] [facility], [place], [address]. tel:[phone] Family History Family Member Type Diagnosis Age At Onset No Information Payers Payer name Insurance type Covered democrat ID Authoriza tion(s) Medicare [facility] [id number] Medicaid [facility] [id number] Social History Type Description Quantity Date Captured Comments Sex Female Smoking Status No Information Chief Complaint And Reason For Visit No Information Reason For Referral Reason For Referral No Information History Of Present Illness Encounter Date Complaint History Of Prese nt Illness No Information Functional Status Date Functional Assessmen t No Information Instructions Date Instruction Additional Infor mation No Information Assessments Type Assessment Date No Information Patient Care Teams Name Effective Dates (start - stop) Status Members No Information
--- OUTSIDE RECORDS SUMMARY | 2010-06-04 04:00 | XMS_ITS | Continuity of Care Document ---
Author Organization [facility] Address [address] [place] [address] Phone Care Team Providers Care Wetlands Technician Name Role Phone Sergo FLORES, Jerzy Unavailable [...] Copied on Encounter Office/outpati ent Visit, Est [facility], [address] [place] [address] [address], [place], [place], [id number], [place] tel:[phone] [facility] No Information 201 0 Sergo Bertrand. [facility] [place], [place], [id number], [place]. tel:[phone] Referring Provider: Tony Forrester, [address] [place], [address]. tel:[phone] [facility], [address], [place], [place], [id number], tel:[phone] [facility] [place] No Information 8-201 0 Cesario Jimenez. [address] [place], [facility], [place]. tel:[phone] Referring Provider: Dante Simmons OD A, [address] [facility] [address], [place], [place], [facility]. tel:[phone] [facility], [address] [place] [address] [address], [place], [place], [id number], [place] tel:[phone] [facility] [place] No Information 9-201 0 Simmons OD Dante. [address] [facility] , [address], [place], [facility], [place]. tel:[phone] [facility], [address] [place] [address] [address], [place], [place], [id number], [place] tel:[phone] [facility] No Information 2-200 9 Cesario Jimenez. [address] [place], [facility], [place]. tel:[phone] Referring Provider: Tony Forrester, [address] [place], [facility]. tel:[phone] Office Consultation [facility], [address] [place] [address] [address], [place], [place], [id number], [place] tel:[phone] [facility] No Information 7-200 8 Cesario Jimenez. [address] [place], [facility], [place]. tel:[phone] Referring Provider: Ellis Hearn OD, [address] [facility], [place], [address]. tel:[phone] Family History Family Member Type Diagnosis Age At Onset No Information Payers Payer name Insurance type Covered libertarian ID Authoriza tion(s) Medicare [facility] [id number] Medicaid [facility] [id number] Social History Type Description Quantity Date Captured [...]
--- OUTSIDE RECORDS SUMMARY | 2025-04-05 13:45 | XMS_ITS | Encounter Summary ---
Author Organization [facility] Address [address] [facility] [place] [address] Phone Care Team Providers Care Stock Sorter Name Role Phone Sharon Moya MD Primary Care Provider [phone] Chapito Garcia MD Unavailable Radha Mac DPM Unavailable [phone] Reason for Visit * Auth/Cert (Routine) Specialty Diagnoses / Procedures Referred By Contac t Referred To Contact Referral ID Status Reason Start Date Expiration Date Visits Re quested Visits Authorized [id number] 1 1 Encounter Details Date Type Department Care Team (Late Contact Info) Description 04/05/2025 1:45 PM CDT Home Care Visit [facility] [address] [place] [address] Nicolle Coates, OT OT - CORREIA SUPERVISORY VISIT Social History Tobacco Use Types Packs/Day Years Used Date Smoking Tobacco: Former Cigarettes 1 12 Smokeless Tobacco: Never Alcohol Use Standard Drinks/Week Comments No 0 (1 standard drink = 0.6 oz pur e alcohol) [facility] Utilities Answer Date Recorded In the past 12 months has [employer] electric, gas, oil, or water company threatened [...] declined 05/25/2024 How often do you attend mormonism or mandaeism serv ices? Patient declined 05/25/2024 Do you belong to any clubs o r organizations such as mormonism groups, unions, fraternal or athletic groups, or [...] Score - Questions 1-9 0 /0 03/2022 [facility] - [...] have money to get more. Patient declined Housing Stability Vital Sign Answer Tommy e Recorded In the last 12 months, was t here a time when you were not able to pay the mortgage or rent on time? Patient declined 05/25/20 24 In the past 12 months, how m any times have you moved where you were living? 0 05/25/2024 At any time in the past 12 m [facility], were you homeless or living in a fdc (including now)? Patient declined 05/25/2024 PRAPARE - Transportation Answer Date Re corded In the past 12 months, has l ack of transportation kept you from medical appointments or from getting medications? Yes 03/09/2025 Lack of Transportation (Non-Medical) Not on file 03/09/2025 Sexually Active Control Partners Comments Not Currently Comments No Sex and Gender Information Value Date Recorded Sex Assigned at Female 02/22/2023 8:54 AM CDT Legal Sex Female 7:09 PM CDT Gender Identity Female 02/22/2023 8:54 AM CDT Sexual Orientation Not on file documented as of this encounter Last Filed Vital Signs Vital Sign Reading Time Taken Comments Blood Pressure 140/78 04/05/2025 2:28 PM CDT Pulse 63 04/05/2025 2:28 PM CDT Temperature 36.2 C (97.2 F) 04/05/2025 2:28 PM CDT Respiratory Rate 17 04/05/2025 2:28 PM CDT Oxygen Saturation 96% 04/05/2025 2:28 PM CDT Inhaled Oxygen Concentration - - Weight - - Height - - Body Mass Index - - documented in this encounter Plan of Treatment Upcoming Encounters Date Type Department Care Team (Late st Contact Info) Description 04/09/2025 10:30 AM CDT Home Care Visit [address] [address] Vi Conway, PT [place] 04/11/2025 2:00 AM CDT Home Care Visit [address] [address] Keyona Shen OTA [place] 04/11/2025 8:30 AM CDT Home Care Visit [address] [address] Alyson Crowder PTA [place] 04/13/2025 1:00 AM CDT Appointment [address] [address] Nicolle Coates OT 04/17/2025 9:30 AM CDT [facility] [address] [place] [address] Karen Mcgarry, BI DATA MODELER 04/19/2025 9:30 AM CDT Home Care Visit [address] [address] Karen Mcgarry, BI DATA MODELER 04/23/2025 1:00 AM CDT Home Care Visit [address] [address] Karen Mcgarry, BI DATA MODELER 04/25/2025 1:00 AM CDT Appointment [address] [address] Vi Conway, [place] 06/28/2025 9:00 AM MAINTENANCE CRAFTSMAN Office [facility] - [place] [address] [place] [address] Chapito Garcia MD [address] [address] documented as of this encounter Visit Diagnoses Not on filedocumented in this encounter Home Health Visit - Care Plan Visit Details Visit Type -OT - CORREIA Superv isory Visit Discipline -Occupational Therapy Problems Problem Description Start Date Status Goals Interve ntions OT COMPREHENSIVE Disciplines: Occupational Therapy 03/27/2025 Active 1 goal linked to scheduled/documente d intervention 1 goal intervention scheduled/documente d in this visit Goals Goal Associated Problem Outcome Goal Met? Visit Notes OT Transfers Description: Short Term Goal: Patient will complete toilet transfer with adaptive equipment of w/c and grab bars as needed with independence and good in order to safely perform ADLs. To be met by 04/14/25. Extrusion Manager Goal: Patient will complete tub transfer with adaptive equipment of grab bar, seat, w/c, cut out tub as needed with independence and good in order to safely perform ADLs. To be met by 04/14/25. OT COMPREHENSIVE Ongoing (see interventions/notes ) No Interventions Intervention Associated Problem/Goal Status Variance Visit Notes OT Transfers Description: Instruct on transfer techniques and safety. Equipment as needed. Problem:OT COMPREHENSIVE Goal:OT Transfers Performed Pt. was educated on the use of the transfer tub bench in her tub/shower combo. Pt. was given a verbal and visual demo. of the transfer. She then transferred with SBA and verbal cues for hand placement, w/c placement, etc. She did the transfer 2x and was very excited that she could get in the tub on her own safely. Skilled intervention included visual demonstration, appropriate adaptaton of tub bench, and verbal cues Goal progress: ongoing documented in this encounter Home Health Visit - Actions and Narratives Actions OT called Dominique Peck and sukumar strickland to Anitha OT is asking for order for transfer tub bench and supporting MD office note due to inability to step into the tub due to RA, CHF, DM with neuropathy and low back pain due to intervetebral disc degeneration. OT asked office to send an order as well as office visit notes to [facility]. Anitha took the message for Dominique. documented in this encounter Care Teams Stock Sorter Relationship Specialty Start Date End Date Sharon Moya MD [address] [place] [address] PCP - General Internal Medicine 09/16/21 Chapito Garcia MD #[address] [phone] Consulting Physician Endocrinology 12/25/21 Radha Mac DPM #[address] [address] Consulting Physician Podiatry 05/26/22 documented as of this encounter
--- OUTSIDE RECORDS SUMMARY | 2025-04-06 09:30 | XMS_ITS | Encounter Summary ---
Author Organization [facility] Address [address] [facility] [place] [address] Phone Care Team Providers Care Transportation Dispatcher Name Role Phone Sharon Moya MD Primary Care Provider [phone] Chapito Garcia MD Unavailable Radha Mac DPM Unavailable [phone] Reason for Visit * Auth/Cert (Routine) Specialty Diagnoses / Procedures Referred By Contac t Referred To Contact Referral ID Status Reason Start Date Expiration Date Visits Re quested Visits Authorized [id number] 1 1 Encounter Details Date Type Department Care Team (Late st Contact Info) Description 04/06/2025 9:30 AM CDT Home Care Visit [facility] [address] [place] [address] Karen Mcgarry, FIREPOT OPERATOR AND TENDER PT - HOME VISIT Social History Tobacco Use Types Packs/Day Years Used Date Smoking Tobacco: Former Cigarettes 1 12 Smokeless Tobacco: Never Alcohol Use Standard Drinks/Week Comments No 0 (1 standard drink = 0.6 oz pur e alcohol) [facility] Utilities Answer Date Recorded In the past 12 months has [employer] electric, gas, oil, or water company threatened [...] declined 05/25/2024 How often do you attend evangelical or hoahaoism serv ices? Patient declined 05/25/2024 Do you belong to any clubs o r organizations such as evangelical groups, unions, fraternal or athletic groups, or [...] Recorded Total Score - Questions 1-9 0 02/0 03/2022 [facility] - Occupational [...] in the past 12 m [facility], were you homeless or living in a custodial (including now)? Patient declined 05/25/2024 PRAPARE - [...] Sign Reading Time Taken Comments Blood Pressure 132/68 04/06/2025 9:36 AM CDT Pulse 67 04/06/2025 9:36 AM CDT Temperature 36.5 C (97.7 F) 04/06/2025 9:36 AM CDT Respiratory Rate 18 04/06/2025 9:36 AM CDT Oxygen Saturation 97% 04/06/2025 9:36 AM CDT Inhaled Oxygen Concentration - - Weight - - Height - - Body Mass Index - - documented in this encounter Plan of Treatment Upcoming Encounters Date Type Department Care Team (Late st Contact Info) Description 04/09/2025 10:30 AM CDT Home Care Visit [address] [address] Vi Conway, [place] 04/11/2025 2:00 AM CDT Home Care Visit [facility] [address] Keyona Shen OTA ID 04/11/2025 8:30 AM CDT Home Care Visit [facility] [address] Alyson Crowder FIREPOT OPERATOR AND TENDER [place] 04/13/2025 1:00 AM CDT Appointment [address] [address] Nicolle Coates OT 04/17/2025 9:30 AM CDT Home Care Visit [facility] [address] Karen Mcgarry, FIREPOT OPERATOR AND TENDER 04/19/2025 9:30 AM CDT Home Care Visit [facility] [address] Karen Mcgarry, FIREPOT OPERATOR AND TENDER 04/23/2025 1:00 AM CDT Home Care Visit [facility] [address] Karen Mcgarry, FIREPOT OPERATOR AND TENDER 04/25/2025 1:00 AM CDT Appointment [address] [address] Vi Conway, [place] 06/28/2025 9:00 AM MALT ROASTER [facility] [address] [place] [address] Chapito Garcia MD [address] [phone] documented as of this encounter Visit Diagnoses Not on filedocumented in this encounter Home Health Visit - Care Plan Visit Details Visit Type -PT - HOME VISIT Discipline -Physical Therapy Problems Problem Description Start Date Status Goals Interve ntions PT COMPREHENSIVE Disciplines: Physical Therapy 03/22/2025 Active 4 goals linked to scheduled/documente d interventions 4 goal interventions scheduled/documente d in this visit THERAPY INCISION/WOUN D CARE (Order Only) Disciplines: Physical Therapy PT Incision 03/26/2025 Active 1 goal linked to scheduled/documente d intervention 1 goal intervention scheduled/documente d in this visit Goals Goal Associated Problem Outcome Goal Met? Visit Notes PT Balance Description: President Ceo & Founder Goal: Patient will show improved dynamic standing balance as demonstrated by improved unsupported standing to 0 seconds to 30 seconds to be met by 04/28/25. PT COMPREHENSIVE No PT ROM Description: snf Goal: Patient will demonstrate increased bilateral hip flexion contractures range of motion from -40 degrees to -10 degrees in order to be able to stand upright to ambulate. To be met by 04/28/25. PT COMPREHENSIVE No PT Gait Description: Longterm Goal: Patient will ambulate with supervision 150 feet with use of 4 wheel walker, over even surfaces with the following improved gait characteristics more upright posture in order to be safe in home. To be met by 04/28/25. PT COMPREHENSIVE No PT Transfers Description: Short Term Goal: Patient will perform household transfers independently with use of wheelchair ; in order to be safe in home. To be met by 04/05/25. PT COMPREHENSIVE No Therapy Incision/Wound Care Description: 1. Patient/Caregiver will verbalize understanding of wound treatment regimen, and signs and symptoms to report. 2. Expected wound outcome/goal: Closure 3. Target Date: 04/28/25 THERAPY INCISION/WOUND CARE (Order Only) No Interventions Intervention Associated Problem/Goal Status Variance Visit Notes PT Balance Description: Provide balance training for safety and reduced fall risk. Problem:PT COMPREHENSIVE Goal:PT Balance Performed Instructed Patient on skilled balance training: static standing x 3 min with use of countertop. Skilled instruction consisting of: verbal cues for upright posture, B knee ext and keep head up. Avoid leaning over on forearms. Pt declined further standing attempts today due to c/o fatigue.. Tolerance to activity: verbal/tactile cues required 50 % of activity for posturing correction within pt's range/capability PT ROM Description: Instruct and perform range of motion techniques. Progress as tolerated. Passive range of motion , Active assisted range of motion and Active range of motion Problem:PT COMPREHENSIVE Goal:PT ROM Performed Range of motion treatment consisting of: passive stretching to anterior chest/back with pt sitting in w/c and therapist pulling back on shoulders x 5 reps with 15 sec holds. Instructed pt to continue to lay on back before bed and in morning with arms out to stretch her back. Pt performed sitting ex's to LE's x 10-20 reps: heel/toe raises, knee ext with 5 sec hold, hip flexion, hip abd/add and glut sets.. Skilled instruction consisting of verbal cues perform ex's thru full range, hold contractions and use correct form for max benefit provided to Patient. Tolerance to activity: verbal/tactile cues required 50 % of activity PT Gait Description: Provide gait training for increased safety and efficiency.Progress per patient tolerance and safety. Problem:PT COMPREHENSIVE Goal:PT Gait Performed Patient ambulated with contact guard assistance 10-12 feet x 3 with use of 4 wheel walker and w/c follow up over even surfaces with the following gait characteristics: severe flexed posture, decrease in B step height and stride, slight B knee flexion. Pu lse ox 96% following. Skilled instruction consisting of upright posture within pt's range/capability, head up, increase B step height, B knee ext during stance phase provided to Patient. Tolerance to activity verbal cues required 50-75 % of activity . PT Transfers Description: Instruct in proper safety and transfer technique. Problem:PT COMPREHENSIVE Goal:PT Transfers Performed Instructed Patient on transfer training: stand pivot with use of: no AD. Patient required supervision. Skilled instruction consisting of hand placement. Tolerance to activity: verbal/tactile cues required 25 % of activity Therapy Wound Care (Order Only) Description: Wound Number 1. Location R gluteal. Wound Care Order To be performed Daily, and as needed if dressing is soiled or comes off. To be performed by Skilled Nurse, Patient or PT/FIREPOT OPERATOR AND TENDER . Cleanse wound with wound cleanser or normal saline. Pack wi th /apply other: triad paste. Use skin prep/moisture barrier to protect surrounding skin PRN. Instruct/ Evaluate signs and symptoms of infection. In struct/ Perform wound care as ordered. Instruct on signs and symptoms to report. Problem:THERAPY INCISION/WOUND CARE (Order Only) Goal:Therapy Incision/Wound Care Scheduled with variance Not addressed at this visit pt to have homemaker apply cream following her shower today documented in this encounter Care Teams Transportation Dispatcher Relationship Specialty Start Date End Date Sharon Moya MD [address] [place] [address] PCP - General Internal Medicine 09/16/21 Chapito Garcia MD #[address] [phone] Consulting Physician Endocrinology 12/25/21 Radha Mac DPM #[address] [phone] Consulting Physician Podiatry 11/15/22 documented as of this encounter
--- OUTSIDE RECORDS SUMMARY | 2025-04-06 13:00 | XMS_ITS | Encounter Summary ---
Author Organization [facility] Address [address] [facility] [place] [address] Phone Care Team Providers Care Industrial Yard Brake Coupler Name Role Phone Sharon Moya MD Primary Care Provider [phone] Chapito Garcia MD Unavailable Radha Mac DPM Unavailable [phone] Reason for Visit * Auth/Cert (Routine) Specialty Diagnoses / Procedures Referred By Contac t Referred To Contact Referral ID Status Reason Start Date Expiration Date Visits Re quested Visits Authorized [id number] 1 1 Encounter Details Date Type Department Care Team (Late Contact Info) Description 04/06/2025 1:00 PM CDT Home Care Visit [facility] [address] [place] [address] Nicolle Coates, CARLA OT - HOME VISIT Social History Tobacco Use Types Packs/Day Years Used Date Smoking Tobacco: Former Cigarettes 1 12 Smokeless Tobacco: Never Alcohol Use Standard Drinks/Week Comments No 0 (1 standard drink = 0.6 oz pur e alcohol) [facility] Utilities Answer Date Recorded In the past 12 months has [employer] electric, gas, oil, or water company threatened [...] declined 05/25/2024 How often do you attend alevism or mandaen serv ices? Patient declined 05/25/2024 Do you belong to any clubs o r organizations such as alevism groups, unions, fraternal or athletic groups, or [...] Score - Questions 1-9 0 02/0 03/2022 [facility] Occupat ional [facility] - Occupational [...] any time in the past 12 m [facility], were you homeless or living in a detention (including now)? Patient declined 05/25/2024 PRAPARE - [...] 04/09/2025 10:30 AM CDT Home Care Visit [address] [address] Vi Conway, PT [place] 04/11/2025 2:00 AM CDT Home Care Visit [address] [address] Keyona Shen, [place] 04/11/2025 8:30 AM CDT Home Care Visit [address] [address] Alyson Crowder, CASHIER HOST/HOSTESS [place] 04/13/2025 1:00 AM CDT Appointment [address] [address] Nicolle Coates OT 04/17/2025 9:30 AM CDT Home Care Visit [address] [address] Karen Mcgarry, CASHIER HOST/HOSTESS 04/19/2025 9:30 AM CDT Home Care Visit [address] [address] Karen Mcgarry, CASHIER HOST/HOSTESS 04/23/2025 1:00 AM CDT Home Care Visit [address] [place] [address] Karen Mcgarry, CASHIER HOST/HOSTESS 04/25/2025 1:00 AM CD[facility] [address] [place] [address] Vi Conway, PT [place] 06/28/2025 9:00 AM INSULATION CUTTER AND FORMER Office Visit [facility] - [place] [address] [place] [address] Chapito Garcia MD #[address] [address] documented as of this encounter Visit Diagnoses Not on filedocumented in this encounter Care Teams Industrial Yard Brake Coupler Relationship Specialty Start Date End Date Sharon Moya MD [address] [place] [address] PCP - General Internal Medicine 09/16/21 Chapito Garcia MD #[address] [address] Consulting Physician Endocrinology 12/25/21 Radha Mac DPRahat #[address] [address] Consulting Physician Podiatry 05/26/22 documented as of this encounter
--- NOTE | 2025-04-06 14:59 | ED.FEMALEGU ---
HPI - Female Genitourinary General Chief complaint: Urogenital-Female Stated complaint: poss uti Time Seen by Provider: 04/06/25 15:20 Source: patient Mode of arrival: ambulatory Limitations: no limitations History of Present Illness HPI Narrative: Khadra is a 65-year-old female patient presenting to the clinic today with complaints of possible UTI. She is reporting some burning, frequency, urgency, and back pain for the past 2-3 days. History of frequent UTIs. Denies any fevers, chills, or other body aches. No nausea or vomiting. Denies any abdominal pain. Related Data Home Medications ?Medication ?Instructions ?Recorded ?Confirmed ?Last Taken ?Type ascorbate calcium (vitamin C) 500 500 mg PO DAILY 01/02/22 10/26/24 Unknown History mg tablet calcium 600 mg (as 1 cap PO DIRECTED 01/02/22 10/26/24 Unknown History carbonate)-vitamin D3 12.5 mcg (500 unit) capsule (Calcium with Vit D3) hydrochlorothiazide 25 mg tablet 25 mg PO BID 01/02/22 10/26/24 Unknown History hydroxyzine HCl 25 mg tablet 25 mg PO BID PRN Itching 01/02/22 10/26/24 Unknown History lisinopril 20 mg tablet 20 mg PO BID 01/02/22 10/26/24 Unknown History linaclotide 72 mcg capsule 72 mcg PO QAM 08/10/22 10/26/24 Unknown History (Linzess) atorvastatin 20 mg tablet 20 mg PO DAILY 05/31/23 10/26/24 Unknown History citalopram 20 mg tablet 20 mg PO DAILY 05/31/23 10/26/24 Unknown History trimethoprim 100 mg tablet 100 mg PO DAILY 05/31/23 10/26/24 Unknown History alendronate 70 mg tablet 70 mg PO DAILY 06/22/23 10/26/24 Unknown History amlodipine 5 mg tablet 5 mg PO DAILY 08/03/23 10/26/24 Unknown History buspirone 15 mg tablet 15 mg PO DAILY 08/03/23 10/26/24 Unknown History divalproex 500 mg tablet,delayed 500 mg PO QID 08/03/23 10/26/24 Unknown History release famotidine 40 mg tablet 40 mg PO DAILY 08/03/23 10/26/24 Unknown History fluticasone fur. 200 mcg-umeclid 1 inh inhalation DAILY 08/03/23 10/26/24 Unknown History 62.5 mcg-vilant 25 mcg inhalat.powder (Trelegy Ellipta) fluticasone propionate 50 1 spray intranasal BID 08/03/23 10/26/24 Unknown History mcg/actuation nasal spray,suspension insulin glargine 100 unit/mL (3 16 unit subcut QPM 08/03/23 10/26/24 Unknown History mL) subcutaneous pen (Lantus Solostar U-100 Insulin) insulin lispro 100 unit/mL 28 unit subcut TID 08/03/23 10/26/24 Unknown History subcutaneous pen (Humalog KwikPen (U-100) Insulin) ipratropium bromide 21 mcg (0.03 2 spray intranasal DAILY 08/03/23 10/26/24 Unknown History %) nasal spray levothyroxine 150 mcg tablet 150 mcg PO DAILY 08/03/23 10/26/24 Unknown History risperidone 0.5 mg tablet 0.5 mg PO DAILY 08/03/23 10/26/24 Unknown History tamsulosin 0.4 mg capsule 0.4 mg PO BID 08/03/23 10/26/24 Unknown History semaglutide 0.25 mg or 0.5 mg (2 0.25 mg subcut WEEKLY 04/03/24 10/26/24 Unknown History mg/3 mL) subcutaneous pen injector (Ozempic) estradiol 0.01% (0.1 mg/gram) vaginal 12/07/24 Unknown History vaginal cream primidone 50 mg tablet mg 12/07/24 Unknown History fluticasone fur. 100 mcg-umeclid inhalation 12/26/24 Unknown History 62.5 mcg-vilant 25 mcg inhalat.powder (Trelegy Ellipta) semaglutide 1 mg/dose (4 mg/3 mL) mg subcut 12/26/24 Unknown History subcutaneous pen injector (Ozempic) atorvastatin 40 mg tablet mg 04/06/25 Unknown History cyclosporine 0.05 % eye drops in a drp 04/06/25 Unknown History dropperette (Restasis) levothyroxine 175 mcg tablet mcg 04/06/25 Unknown History sulfasalazine 500 mg tablet 04/06/25 Unknown History Allergies Allergy/AdvReac Type Severity Reaction Status Date / Time carbamazepine Allergy Mild Unknown Verified 04/06/25 15:15 meperidine Allergy Mild Unknown Verified 04/06/25 15:15 prednisone Allergy Mild Unknown Verified 04/06/25 15:15 Review of Systems Review of Systems: Pertinent positives per HPI. Patient denies any fever, chills, rash, headache, visual changes, dizziness, cough, runny nose, sore throat, shortness of breath, chest pain, palpitations, nausea, vomiting, diarrhea, constipation, abdominal pain. [facility] Past Medical History Medical History Sleep apnea Seizures Bipolar 1 disorder Chronic kidney disease, stage IV (severe) Depression Anxiety COPD (chronic obstructive pulmonary disease) Brain damage Hypothyroidism Hypertension Diabetes Brain ventricular shunt displacement Surgical History Surgical History History of brain shunt History of right knee joint replacement History of appendectomy S/P cholecystectomy H/O: hysterectomy 1991 Family History Family History Father Alcoholism Asthma Diabetes mellitus Hypertension Social History Social History Smoking status: Former smoker Tobacco type: cigarettes Alcohol intake: never Substance use: never Do You Feel Safe in your Home?: Yes Lack of Transportation: No Lack of Food: Sometimes True Current Housing: I Have Housing Concerned About Future Housing: No Difficulty Paying Gas/Electric Bills: YES Difficulty Paying for Meds: No Currently Unemployed: No Education: High School Diploma/GED Difficulty w/ Childcare or Family Care: No Gender identity (if verbalized by the patient): Female Spiritual care concerns: No Comments At the time of my signature, I reviewed and agree with the nursing past medical, surgical, social, and family history. There is no relevant family history pertinent to the patient complaint. Exam Narrative: General: Well-developed, morbidly obese, in no apparent distress. Head: Normocephalic, atraumatic. Cardio: Regular rate and rhythm, s1 and s2 normal, no murmur appreciated. Resp: Clear to auscultation bilaterally, no rhonchi, rales, wheezing or rubs. Abdomen: Soft, pliable, bowel sounds present in all quadrants, suprapubic tender to palpation, no organomegly, bilateral CVAT tenderness. Course Course Emergency Course: Portions of this record may have been created with voice recognition software. Level of Care: Express Care Visit Vital Signs Vital signs: Vital Signs Temperature 36.4 C 04/06/25 15:16 Pulse Rate 72 04/06/25 15:16 Respiratory Rate 18 04/06/25 15:16 Blood Pressure 153/59 H 04/06/25 15:16 Pulse Oximetry 100 04/06/25 15:16 Oxygen Delivery Room Air 04/06/25 15:16 Temperature 36.4 C 04/06/25 15:16 Pulse Rate 72 04/06/25 15:16 Respiratory Rate 18 04/06/25 15:16 Blood Pressure 153/59 H 04/06/25 15:16 Pulse Oximetry 100 04/06/25 15:16 Oxygen Delivery Room Air 04/06/25 15:16 Vital signs reviewed MDM - Female Genitourinary MDM Narrative Medical decision making narrative: At the time of visit patient is resting comfortably on the exam table. Patient appears to be nontoxic. complaints of possible UTI. She is reporting some burning, frequency, urgency, and back pain for the past 2-3 days. History of frequent UTIs. Denies any fevers, chills, or other body aches. No nausea or vomiting. Denies any abdominal pain. On exam patient has soft pliable abdomen, bowel sounds present all 4 quadrants, tenderness to palpation over the suprapubic area, bilateral CVAT tenderness, Urine dip ordered Labs: Urine dip negative in the clinic today. We will send urine for culture. Plan: I suspect patient has has dysuria with some low back pain. No infection or sign of blood in her urine. Explained to the patient that she will not be getting a prescription for antibiotics today and she appeared upset. Offer to send patient to the ED for further evaluation and she declined at this time. We will send urine for culture. Sent in prescription for some Pyridium. Supportive measures were discussed with the patient and they voiced understanding discharge instructions and agrees to treatment plan. Return precautions reviewed Differential Diagnosis Differential diagnosis: Likely urinary tract infection, cystitis and other (Overactive bladder syndrome) Lab Data Labs: Lab Results 04/06/25 Range/Units 15:15 POC Urine Color Yellow POC Urine Clarity Clear POC Urine pH 6.0 POC Ur Specif [place] 1.010 POC Urine Protein Negative (Negative) POC Ur Glucose (UA) Negative (Negative) POC Urine Ketones Negative (Negative) POC Urine Blood Negative (Negative) POC Urine Nitrite Negative (Negative) POC Urine Bilirubin Negative (Negative) POC Urine Urobilinogen 0.2 POC U Leukocyte Esteras Negative (Negative) Discharge Plan Discharge Clinical Impression: Dysuria Low back pain Qualifiers: Chronicity: acute Back pain laterality: bilateral Sciatica presence: without sciatica Qualified Code(s): M54.50 - Low back pain, unspecified Patient Disposition: Home Condition: Stable Instructions: Antibiotic Form, Acute Low Back Pain (ED), Dysuria (ED) Additional Instructions: Urine dip was negative for any sign of infection or blood in the clinic today. We will send urine for culture Take Pyridium as prescribed Increase fluids and stay well hydrated Wipe front to back. May use wet wipes. Avoid tub baths If sexually active- pee before and after intercourse. Wear cotton panties Avoid tight clothing up against the genitals Follow up with your PCP in 1 week if symptoms persist. Patient Language: Macanese Prescriptions: New phenazopyridine [Pyridium] 200 mg tablet 200 mg PO TID PRN (Reason: pain) Qty: 6 0RF No Action atorvastatin 20 mg tablet 20 mg PO DAILY trimethoprim 100 mg tablet 100 mg PO DAILY citalopram 20 mg tablet 20 mg PO DAILY alendronate 70 mg tablet 70 mg PO DAILY primidone 50 mg tablet estradiol 0.01 % (0.1 mg/gram) cream VAGINAL Trelegy Ellipta 100-62.5-25 mcg blister with device INHALATION Ozempic 1 mg/dose (4 mg/3 mL) pen injector SUBCUT atorvastatin 40 mg tablet levothyroxine 175 mcg tablet sulfasalazine 500 mg tablet cyclosporine [Restasis] 0.05 % dropperette ipratropium bromide 21 mcg (0.03 %) spray,non-aerosol 2 spray INTRANASAL DAILY famotidine 40 mg tablet 40 mg PO DAILY amlodipine 5 mg tablet 5 mg PO DAILY divalproex 500 mg tablet,delayed release (DR/EC) 500 mg PO QID tamsulosin 0.4 mg capsule 0.4 mg PO BID levothyroxine 150 mcg tablet 150 mcg PO DAILY fluticasone propionate 50 mcg/actuation spray,suspension 1 spray INTRANASAL BID risperidone 0.5 mg tablet 0.5 mg PO DAILY buspirone 15 mg tablet 15 mg PO DAILY insulin glargine [Lantus Solostar U-100 Insulin] 100 unit/mL (3 mL) insulin pen 16 unit SUBCUT QPM insulin lispro [Humalog KwikPen Insulin] 100 unit/mL insulin pen 28 unit SUBCUT TID Trelegy Ellipta 200-62.5-25 mcg Blister With Device 1 inh INHALATION DAILY Ozempic 0.25 mg or 0.5 mg (2 mg/3 mL) pen injector 0.25 mg SUBCUT WEEKLY hydrochlorothiazide 25 mg tablet 25 mg PO BID lisinopril 20 mg tablet 20 mg PO BID hydroxyzine HCl 25 mg tablet 25 mg PO BID PRN (Reason: Itching) calcium carbonate-vitamin D3 [Calcium 600 with Vitamin D3] 600 mg-12.5 mcg (500 unit) capsule 1 cap PO DIRECTED ascorbate calcium (vitamin C) 500 mg tablet 500 mg PO DAILY Linzess 72 mcg capsule 72 mcg PO QAM estradiol [Yuvafem] 10 mcg tablet 10 mcg vaginal 2XW Qty: 24 3RF furosemide 40 mg tablet 40 mg PO .QD Qty: 30 12RF Follow-up/Referrals: Cisco,Dominique Ta APRN [Primary Care Provider, Unknown] Time of Disposition: 15:20 Quality NIHSS Nursing Documentation ED NIHSS nursing documentation: reviewed/agree
--- OUTSIDE RECORDS SUMMARY | 2025-04-06 14:59 | XMS_ITS ---
Author Organization [facility] Address [address] [place] [address] Phone Care Team Providers Care Political Science Research Assistant Name Role Phone Sharon Moya MD Primary Care Provider Chapito Garcia MD Unavailable Radha Mac DPM Unavailable [phone] Kellee Chronic Condition Monitoring Status:Enrolled (Active) Start date:01/10/2025 Enrollment date:01/10/2025 Related social drivers of health:Social Connections, Alcohol Use, Tobacco Use, Financial Resource Strain, Stress, Physical Activity,Food Insecurity, Transportation Needs, Housing Stability, Utilities Related service episodes:Kellee [facility] Service Episode (Declined) Continued Care and Services Coordination
--- OUTSIDE RECORDS SUMMARY | 2025-04-06 14:59 | XMS_ITS | Clinical Summary ---
Author Organization [facility] Address [address] [place] [address] Care Team Providers Care State Game Protector Name Role Phone Stuart Douglas MD Unavailable [phone] Wu Saleem MD Unavailable [phone] Dominique Peck NP Primary Care Provider [...] 1 tablet (150 mcg total) by mouth early childhood aide classroom before breakfast Active furosemide (LASIX) 20 mg tabletIndications: Edema,hypertension Take 1 tablet (20 mg total) by mouth daily 30 tablet 1 0 Active trimethoprim (TRIMPEX) 100 mg tablet daily 0 Active senna (SENOKOT) 8.6 mg tablet Take 1 tablet by mouth nightly Active amLODIPine (NORVASC) 5 mg tablet 1 Active citalopram (CeleXA) 20 mg tablet 2 Active dexAMETHasone (DECADRON) 6 mg tablet 1 Active hydrOXYzine (ATARAX) 25 mg tablet 2 Active ondansetron ODT (ZOFRAN-ODT) 4 mg disintegrating tablet Take 1 tablet (4 mg total) by mouth every 6 (six) hours as needed 1 Active ascorbic acid (VITAMIN C) 500 mg [...] DAILY. USE TO INJECT INSULIN 4X DAILY. 2 Active OneTouch Delica Plus Lancet 30 gauge misc 4 TIMES A DAY 2 Active HumaLOG 100 unit/mL pen for injection PLEASE SEE ATTACHED FOR DETAILED DIRECTIONS 2 Active hydrocortisone (ANUSOL-HC) 2.5 % rectal cream 0 Active dextromethorphan-g uaiFENesin (ROBITUSSIN-DM) 2-20 mg/mL liquid every 4 hours 1 Active fluconazole (DIFLUCAN) 150 mg tablet 2 Active famotidine (PEPCID) 40 mg tablet 2 Active Premarin vaginal cream 2 Active diclofenac sodium (VOLTAREN) 1 % gel 2 Active Restasis 0.05 % ophthalmic emulsion 2 Active OneTouch Verio Reflect Meter misc USE DIRECTED TO TEST BLOOD GLUCOSE 3 TIMES DAILY 2 Active OneTouch Verio test strips strip 2 Active wheelchair device as directed 9 Active miscellaneous medical supply misc as directed 8 Active blood-glucose meter misc USE TO CHECK BLOOD SUGAR THREE TIMES DAILY 2 Active diaper,brief,adult ,disposable misc as directed 8 Active diabetic supplies, miscellan. misc as directed 9 Active pen needle, diabetic 32 gauge x 3/16 needle as directed Act arleth lancets-blood glucose strips 30 gauge combo pack 4 TIMES A DAY 2 Active polyethylene glycol (MIRALAX) 17 gram packet 0 Active miscellaneous medical supply [facility] [place] Power Scooter 8 Active NEBULIZER AND COMPRESSOR [facility] 1 Active underpads pad as directed 8 Active empty container (BD Sharps Splicer Machine Operator) [facility] [place] [place] 8 Active nystatin powder Apply topically 2 (two) times a day 3 Active ipratropium (ATROVENT) 21 mcg (0.03 %) nasal sprayIndications:C hronic maxillary sinusitis Administer 2 sprays into each nostril every 12 (twelve) hours 90 mL 3 4 Active nitrofurantoin monohydrate (MACROBID) 100 mg capsule Take 1 capsule (100 mg total) by mouth 2 (two) times a day 10 capsule 4 Active linaCLOtide (LINZESS) 72 mcg capsule Take 1 capsule (72 mcg total) by mouth daily 30 capsule 11 4 Active Imvexxy Maintenance Pack 4 mcg insert vaginal insert 4 Active methenamine (HIPREX) 1 gram tablet 4 Active terconazole (TERAZOL 3) 0.8 % vaginal cream 4 Active sulfaSALAzine (AZULFIDINE) 500 mg tablet Take 1 tablet (500 mg total) by mouth daily 4 Active insulin aspart (NovoLOG) 100 unit/mL (3 mL) pen for injection Inject 8 Units under the skin 4 Active primidone (MYSOLINE) 50 mg tablet Take 1 tab po bid 180 tablet 1 5 Active amoxicillin-clavul anate (AUGMENTIN) 500-125 mg per tablet Take 1 tablet by mouth 2 (two) times a day 5 Active benzonatate (TESSALON) 100 mg capsule TAKE 1 CAPSULE 3 TIMES A DAY BY ORAL ROUTE NEEDED FOR 5 DAYS, FOR COUGH. 5 Active doxycycline 100 mg tablet Take 1 tablet/capsule (100 mg total) by mouth 5 Active fluticasone-umecli din-vilanter (Trelegy Ellipta) 100-62.5-25 mcg inhalerIndications :Moderate persistent asthma without complication,SOB (shortness of breath) INHALE 1 PUFF BY MOUTH DAILY 60 each 11 5 Active Active Problems Problem Noted Date Diagnosed Date Tremor 11/26/2024 Personal history of colonic polyps 12/15/2023 Encounter for screening colonoscopy 12/15/2023 Epistaxis 06/09/2023 Assessment & Plan (06/09/2023 1:41 PM SUPERVISOR HAND WORKERS): Nasal saline spray (Simply saline, Little Remedies, [place], [place]) 2 second sprays or 2 squeezes into [...] (07/30/2022): Added automatically from request for surgery [id number] Assessment & Plan (08/06/2022 8:36 PM SUPERVISOR HAND WORKERS): Schedule sigmoidoscopy and treatment of hemorrhoids. Hemorrhoids 07/30/2022 Overview (07/30/2022): Added automatically from request for surgery [id number] Coronary artery disease invo lving [place] coronary artery of [place] heart without angina pectoris 02/25/2022 Coronary artery calcification 02/25/2022 Chronic pain 02/25/2022 Constipation 02/25/2022 Assessment & Plan (08/06/2022 8:43 PM SUPERVISOR HAND WORKERS): Chronic constipation. Start Linzess 72 Mcg daily. [...] Nasal saline spray (Simply saline, Little Remedies, [place], [place]) 2 second sprays or 2 squeezes into [...] future Assessment & Plan (06/03/2021 2:53 PM SUPERVISOR HAND WORKERS): Nasal saline spray (Simply saline, Little Remedies, [place], [place]) 2 second sprays or 2 squeezes into [...] medications Assessment & Plan (07/15/2020 1:19 PM SUPERVISOR HAND WORKERS): Start Nasal saline spray (Simply saline, Little Remedies, [place], [place]) 2 second sprays or 2 squeezes into [...] daily Assessment & Plan (05/21/2020 10:09 AM SUPERVISOR HAND WORKERS): Nasal saline spray (Simply saline, Little Remedies, [place], [place]) 2 second sprays or 2 squeezes into [...] 05/21/2020 Assessment & Plan (08/09/2024 8:37 AM SUPERVISOR HAND WORKERS): Finish Doxycycline Follow up as needed Assessment & Plan (06/09/2023 1:40 PM SUPERVISOR HAND WORKERS): Nasal saline spray (Simply saline, [place] Remedies, [place], [place]) 2 second sprays or 2 squeezes into [...] needed Assessment & Plan (06/30/2022 10:04 AM SUPERVISOR HAND WORKERS): Nasal saline spray (Simply saline, Little Remedies, [place], [place]) 2 second sprays or 2 squeezes into [...] prescription Assessment & Plan (07/23/2021 12:07 PM SUPERVISOR HAND WORKERS): Augmentin with a meal twice daily for 10 days, call if no improvement Continue Atrovent 2 sprays into each nostril while looking down over the sink, do not sniff in or blow nose after use for at least 30 minutes 1-2 times daily Assessment & Plan (05/21/2020 8:56 PM SUPERVISOR HAND WORKERS): Nasal saline spray (Simply saline, Little Remedies, [place], [place]) 2 second sprays or 2 squeezes into [...] of uterus 07/19/2012 Overview (08/21/2020): Note: S/P IMLO BSO 1991 W/HX ENDOMETRIOSIS Anxiety state 02/11/2011 [...] (10/19/2018): Added automatically from request for surgery [id number] Bilateral primary osteoarthritis of knee 02/03/2017 02/09/2022 Encounters Date Type Department Care Team Description 04/02/2025 1:25 PM CDT Lab [address] [address] 03/20/2025 3:00 PM CDT Orders Only [facility] [address] [place] [address] 03/02/2025 2:40 PM CDT Lab [address] [address] 02/27/2025 2:00 PM CDT Orders Only [facility] [address] [place] [address] 02/27/2025 1:26 PM CDT - 02/27/2025 11:59 PM CDT Hospital Encounter [address] [address] Other specified arthritis, unspecified site; Pneumonia due to infectious organism, unspecified laterality, unspecified part of lung Discharge Disposition: Discharge to home or self care 01/16/2025 2:15 PM CDT Office Visit [facility] Medicine Neurosurgery [address] [facility] [address], [address] [place] [address] Radha Graham PA Idiopathic normal pressure hydrocephalus (HCC) (Primary Dx) 01/15/2025 2:36 PM CDT - 01/15/2025 11:59 PM CDT Hospital Encounter [address] [address] Encounter for screening mammogram for malignant neoplasm of breast Discharge Disposition: Discharge to home or self care 01/10/2025 Telephone [facility] Medicine Neurosurgery [address] [facility] [address] 1, [address] [place] [address] Radha Graham PA 01/09/2025 1:00 PM CDT Telemedicine [facility] Medicine Neurosurgery [address] [facility] Floor 1, [address] [place] [address] Radha Graham PA Idiopathic normal pressure hydrocephalus (HCC) (Primary Dx); Essential hypertension from Last 3 Months Immunizations Immunization Administration [...] History Date Comments Type 2 diabetes mellitus Diabete s type 2 Hx Other Medical anemia Hx [...] e alcohol) Social Connection and Isolation Panel Answer Date Recorded In a typical week, how many times do you talk on the phone with family, friends, or neighbors? Once a week 12/27/19 How often do you get togethe r with friends or relatives? Once a week 12/26/2020 How often do you attend [facility] or druze services? 1 to 4 times per year [...] on file Legal Sex Female 12:39 AM SUPERVISOR HAND WORKERS Gender Identity Not on file Sexual Orientation Not on file Obstetrics History Para Term AB IAB SAB Ectopic Multiple Livin g Live Births 0 0 0 0 0 0 0 0 0 0 0 Last Filed Vital Signs Vital Sign Reading Time Taken Comments Blood Pressure 132/79 11/21/2024 8:23 AM CDT Pulse 70 01/16/2025 1:35 PM CDT Temperature 36.2 C (97.1 F) 10/06/2024 9:30 AM CDT Respiratory Rate 16 01/16/2025 1:35 PM CDT Oxygen Saturation 98% 01/16/2025 1:35 PM CDT Inhaled Oxygen Concentration - - Weight 88.1 kg (194 lb 3.2 oz) 10/06/2024 9:30 A M CDT Height 173 cm (5' 8.11) 11/21/2024 8:23 AM CDT Body Mass Index 29.43 08/09/2024 8:22 AM SUPERVISOR HAND WORKERS Plan of Treatment Health Maintenance Due Date Last Done Comments Albumin Creatinine Ratio, Urine 1959 Colon Cancer Screening-Colonoscopy 1960 Dilated Eye Exam 1959 Foot Exam 1959 Lipid Panel 11/21/2019 11/20/2018, 09/10, 04/05/2017, Additional history exists Depression Screening 09/10/2020 09/11/2019, 11/22/2018, 11/19/2018, Additional history exists Fall Risk Assessment 12/27/2021 12/27/2020 Well Visit 65+ 2024 Hemoglobin A1C 11/20/2024 05/23/2024, 04/0 08/2019, 10/18/2018, Additional history exists Covid-19 Vaccine (8 2 6 season) 2025 10/25/2023, 10/30/2022, 09/09/2022, Additional history exists Osteoporosis Screening-Bone Density Scan 11/02/2025 11/03/2023 Breast Cancer Screening-Mammogram 01/15/2026 01/15/2025, 12/10/2023, 09/28/2022, Additional history exists Pneumococcal vaccine 65+ (3 of 3 - PCV20 or PCV21) 02/13/2026 02/13/2021, 08/25/2016, 07/12/1999, Additional history exists eGFR 04/02/2026 04/02/2025, 02/10, 10/30/2024, Additional history exists DTaP/Tdap/Td Vaccine (2 - Td or Tdap) 02/27/2027 02/27/2017 Zoster Vaccine Completed 12/12/2024, 10/12/2024 Hepatitis B Screening Completed 03/02/2025, 020 Hepatitis C Screening Completed 03/02/2025 , 07/23/2023, 10/28/2014 Influenza Vaccine Completed 03/16/2025, , 06/25/2023, Additional history exists Medical Devices Implanted Type Area Instrument Specialist Device Identifier Shelf Expiration Date Model / Serial / Lot Shunt-11/05/2014 Implanted:2014 by Jerzy Redman MD (Quantity not on file) Shunt Right: Brain [employer] Inc X [id number] / 0 / [id number] [employer] [id number] Attune Cementless Rotate Platform Knee 7 Baseplate Tibial - [id number] Implanted:Qty: 1 on 11/14/2018 by Stuart Douglas MD at [facility] Right: Knee [employer] 08/11/2027 [id number] / / [id number] [employer] [id number] Attune Cruciate Retain Cementless Knee Right 5 Component Femoral - [id number] Implanted:Qty: 1 on 11/14/2018 by Stuart Douglas MD at [facility] Right: Knee [employer] 02/09/2028 [id number] / / [id number] [employer] [id number] Attune 5mm Cruciate Retaining Rotate Platform Knee 5 Insert - [id number] Implanted:Qty: 1 on 11/14/2018 by Stuart Douglas MD at [facility] Right: Knee [employer] 08/11/2023 [id number] / / [id number] Procedures Procedure Name Priority Date/Time Associated Diagnosis Comments EGFR Routine 04/02/2025 1:55 PM CDT PROTEIN / CREATININE RATIO, URINE, RANDOM Routine 04/02/2025 1:55 PM CDT RENAL FUNCTION PANEL Routine 04/02/2025 1:55 PM CDT EGFR Routine 03/02/2025 2:53 PM CDT PHOSPHORUS Routine 03/02/2025 2:53 PM CDT BILIRUBIN, DIRECT Routine 03/02/2025 2:5 3 PM CDT DIFFERENTIAL AUTO Routine 03/02/2025 2:5 3 PM CDT CYCLIC CITRUL PEPTIDE ANTIBODY, IGG Routine 03/02/2025 2:53 PM CDT COMPREHENSIVE METABOLIC PANEL Routine 03/02/2025 2:53 PM CDT CBC WITH AUTO DIFFERENTIAL Routine 03/02/2025 2:53 PM CDT KATIE QUALITATIVE WITH REFLEX TO KATIE QUANTITATIVE Routine 03/02/2025 2:53 PM CDT CRP (ACUTE PHASE) Routine 03/02/2025 2:5 3 PM CDT RHEUMATOID FACTOR Routine 03/02/2025 2:5 3 PM CDT ERYTHROCYTE SEDIMENTATION RATE Routine 03/02/2025 2:53 PM CDT TSH Routine 03/02/2025 2:53 PM CDT URIC ACID Routine 03/02/2025 2:53 PM CDT TB TEST, QUANTIFERON GOLD Routine 03/02/2025 2:53 PM CDT HEPATITIS PANEL, ACUTE Routine 03/02/2025 2:53 PM CDT HEPATITIS B SURFACE ANTIBODY (IMMUNE STATUS) Routine 03/02/2025 2:53 PM CDT URINALYSIS AND REFLEX TO MICROSCOPIC Routine 03/02/2025 2:50 PM CDT XR CHEST 1 VIEW Schedule Routine, Read Routine (OP Routine) 02/27/2025 2:14 PM CDT Pneumonia due to infectious organism, unspecified laterality, unspecified part of lung XR HAND RIGHT 2 VIEWS Schedule Routine, Read Routine (OP Routine) 02/27/2025 2:14 PM CDT Other specified arthritis, unspecified site XR HAND LEFT 2 VIEWS Schedule Routine, Read Routine (OP Routine) 02/27/2025 2:14 PM CDT Other specified arthritis, unspecified site XR FOOT RIGHT 2 VIEWS Schedule Routine, Read Routine (OP Routine) 02/27/2025 2:14 PM CDT Other specified arthritis, unspecified site XR FOOT LEFT 2 VIEWS Schedule Routine, Read Routine (OP Routine) 02/27/2025 2:14 PM CDT Other specified arthritis, unspecified site XR SACROILIAC JOINTS 3 OR MORE VIEWS Schedule Routine, Read Routine (OP Routine) 02/27/2025 2:14 PM CDT Other specified arthritis, unspecified site XR SPINE LUMBAR 2 OR 3 VIEWS Schedule Routine, Read Routine (OP Routine) 02/27/2025 2:14 PM CDT Other specified arthritis, unspecified site SCREENING MAMMOGRAM BILATERAL W RAUL Schedule Routine, Read Routine (OP Routine) 01/15/2025 3:28 PM CDT Encounter for screening mammogram for malignant neoplasm of breast DEXA AXIAL SKELETON BONE DENSITY 1 OR MORE SITES Schedule Routine, Read Routine (OP Routine) 11/03/2023 1:33 PM CDT Age-related osteoporosis without current pathological fracture HEMOGLOBIN A1C Add-On 10/12/2019 6:42 AM CDT LIPID PANEL Timed 11/20/2018 12:47 AM CDT from Last 3 Months or Most Recently Relevant to Health Maintenance Results * (ABNORMAL) eGFR (04/02/2025 1:55 PM CDT) eGFR 43(L) >=60 mL/min/1. 73 m2 Comment: Interpretive Data [...] interpretive data was last reviewed 2021. Blood 04/02/2025 1:55 PM CDT 04/02/2025 2:07 PM CDT Uche Phan MD LAB BLOOD ORDERABLES Final Res ult Performing Organization Address [facility] Co de Phone Number DYAN EKLLY ([place]) [address] [facility] [place] [address] * (ABNORMAL) Protein / creatinine ratio, urine, random (04/02/2025 1:55 PM CDT) Protein, ur, quant <6.0 mg/dL D[facility] ([place]) Comment: Interpretive Data No reference range established. Current interpretive data was last revised 2018. Creatinine Ur 31.1 mg/dL [facility] ([place]) Comment: Interpretive Data No reference range established. Current interpretive data was last revised 2018. Protein/creatinin e ratio <192.9(H) 0.0 - 180.0 mg/g CR [facility] ([place]) Urine 04/02/2025 1:55 PM CDT 04/02/2025 3:05 PM CDT Uche Phan MD LAB URINE ORDERABLES Final Res ult Performing Organization Address [facility] Co de Phone Number DYAN KELLY ([place]) [address] [facility] [place] [address] * (ABNORMAL) Renal function panel (04/02/2025 1:55 PM CDT) Sodium 139 135 - 145 mmol/L [facility] ([place]) Potassium, pl 4.9 3.3 - 4.9 mmol/L [facility] ([place]) Chloride 105 97 - 110 mmol/L [facility] ([place]) CO2 22 22 - 32 mmol/L [facility] ([place]) Anion gap 12 2 - 15 mmol/L [facility] ([place]) BUN 31(H) 6 - 25 mg/dL [facility] ([place]) Creatinine 1.37(H) 0.60 - 1.10 mg/dL [facility] ([place]) Glucose 114 70 - 199 mg/dL [facility] ([place]) Comment: Interpretive Data Fasting glucose >/= [...] interpretive data was last revised 2022. Calcium 9.9 8.5 - 10.3 mg/dL [facility] ([place]) Phosphorus, pl 3.6 2.3 - 4.5 mg/dL [facility] ([place]) Albumin 4.1 3.5 - 5.0 g/dL [facility] ([place]) Blood 04/02/2025 1:55 PM CDT 04/02/2025 2:07 PM CDT us Uche Phan MD LAB BLOOD ORDERABLES Final Res ult [facility] ([place]) [address] [facility] [place] [address] * (ABNORMAL) KATIE ab ql w/rflx to KATIE qn (03/02/2025 2:53 PM CDT) KATIE Positive( A) Comment: Interpretive Data Normal range for KATIE Qualitative Antibody = Negative. 1. KATIE is performed using indirect immunofluorescence against HEp-2 cells 2. KATIE titers are performed on all positive qualitative results. 3. A significantly positive KATIE result is defined as a positive nuclear fluorescence at a titer of 1:80 or greater. 4. 15% of normal people above age 65 have significantly positive KATIE results. 5% or less of normal people age 65 or under have significantly positive KATIE results. Current interpretive data was last revised on 2020. Testing performed by: [facility] [address] [place]., [address] KATIE, quant 1:160 titer [facility]AN [facility] ([place]) Comment:Testing performed by : [facility], [address] [place]., [address] KATIE, interp Speckled( A) DYAN KELLY ([place]) Comment:Testing performed by : [facility], [address] [place]., [address] Blood 03/02/2025 2:53 PM CDT 03/02/2025 6:06 PM CDT Edwin Gupta MD LAB BLOOD ORDERABLES Final Res ult [facility]AN [facility] ([place]) [address] [facility] Department of Laboratories [place], [place] [id number] * (ABNORMAL) eGFR (03/02/2025 2:53 PM CDT) eGFR 36(L) >=60 mL/min/1. 73 m2 [...] interpretive data was last reviewed 2021. Blood 03/02/2025 2:53 PM CDT 03/02/2025 3:22 PM CDT us Edwin Gupta MD LAB BLOOD ORDERABLES Final Res ult [facility]AN [facility] ([place]) [address] [facility] [place] [address] * Differential, auto (03/02/2025 2:53 PM CDT) Neutrophil abs 2.86 1.50 - 6.50 K/cumm Imm gran abs 0.07 0.00 - 0.10 K/cumm [facility] ([place]) Lymphocyte abs 1.70 0.80 - 3.30 K/cumm [facility] ([place]) Monocyte abs 0.63 0.20 - 0.80 K/cumm [facility] ([place]) Eosinophil abs 0.06 0.00 - 0.50 K/cumm [facility] ([place]) Basophil abs 0.03 0.00 - 0.10 K/cumm [facility] ([place]) Neutrophil pct 53.4 % [facility] ([place]) Comment: Interpretive Data Percent cell count reference ranges are not reported, since discordance with absolute values may lead to misinterpretation of CBC data. Current Interpretive Data was last revised on 2017. Imm gran pct 1.3 % [facility] ([place]) Comment: Interpretive Data Percent cell count reference ranges are not reported, since discordance with absolute values may lead to misinterpretation of CBC data. Current Interpretive Data was last revised on 2017. Lymphocyte pct 31.8 % [facility] ([place]) Comment: Interpretive Data Percent cell count reference ranges are not reported, since discordance with absolute values may lead to misinterpretation of CBC data. Current Interpretive Data was last revised on 2017. Monocyte pct 11.8 % [facility] ([place]) Comment: Interpretive Data Percent cell count reference ranges are not reported, since discordance with absolute values may lead to misinterpretation of CBC data. Current Interpretive Data was last revised on 2017. Eosinophil pct 1.1 % [facility] ([place]) Comment: Interpretive Data Percent cell count reference ranges are not reported, since discordance with absolute values may lead to misinterpretation of CBC data. Current Interpretive Data was last revised on 2017. Basophil pct 0.6 % [facility] ([place]) Comment: Interpretive Data Percent cell count reference ranges are not reported, since discordance with absolute values may lead to misinterpretation of CBC data. Current Interpretive Data was last revised on 2017. Blood 03/02/2025 2:53 PM CDT 03/02/2025 3:22 PM CDT Edwin Gupta MD LAB BLOOD ORDERABLES Final Res ult [facility] ([place]) [address] [facility] [place] [address] * TB test, quantiferon gold (03/02/2025 2:53 PM CDT) [facility] Quantiferon TB Gold Negative Negative [facility] Comment: No interferon-gamma response to M. tuberculosis antigens was detected. Latent infection with M. tuberculosis is unlikely. A single negative result does not exclude infection with M. tuberculosis. In patients at high risk for M.tuberculosis infection, a second test should be considered in accordance with the 2017 ATS/IDSA/CDC Clinical Practice Guidelines for Diagnosis of Tuberculosis in Adults and Children [Lewinsohn DM et. al. Clin. Infect. Dis. 2017;64(2):111-115]. The reference range for the 'TB1 Ag minus Nil Result' and 'TB2 Ag minus Nil Result' is an Interferon-gamma level <0.35 IU/mL. TB-Nil 0.00 IUnits/mL [facility] ([place]) TB2-Nil 0.00 IUnits/mL [facility] ([place]) Mitogen-Nil 9.95 IUnits/mL [facility] ([place]) NIL 0.05 IUnits/mL [facility] ([place]) Comment: Test Performed by: [address] [address] Steel Erector Apprentice: Jose Guadalupe Coleman Ph.D.; CLIA# [id number] Blood 03/02/2025 2:53 PM CDT 03/02/2025 3:30 PM CDT Edwin Gupta MD LAB BLOOD ORDERABLES Final Res ult [facility] ([place]) [address] [facility] [place] [address] [facility] * (ABNORMAL) CBC with auto differential (03/02/2025 2:53 PM CDT) WBC 5.35 3.80 - 9.90 K/cumm Hgb 14.0 11.9 - 15.5 g/dL [facility] ([place]) Hct 44.4 35.6 - 45.5 % [facility] ([place]) Plt 95(L) 150 - 400 K/cumm [facility] ([place]) MPV 12.5(H) 9.1 - 12.3 fL [facility] ([place]) RBC 4.55 3.90 - 5.20 M/cumm [facility] ([place]) MCV 97.6(H) 81.3 - 96.4 fL [facility] ([place]) MCH 30.8 27.1 - 33.3 pg [facility] ([place]) MCHC 31.5(L) 32.3 - 35.7 g/dL [facility] ([place]) RDW CV 14.0 11.1 - 14.9 % [facility] ([place]) RDW SD 50.5(H) 35.7 - 48.1 fL [facility] ([place]) NRBC abs 0.00 0.00 - 0.01 K/cumm [facility] ([place]) Blood 03/02/2025 2:53 PM CDT 03/02/2025 3:22 PM CDT Edwin Gupta MD LAB BLOOD ORDERABLES Final Res ult [facility] ([place]) [address] [facility] [place] [address] * Cyclic citrul peptide antibody, IgG (03/02/2025 2:53 PM CDT) CCP Ab <0.5 <=2.9 units/mL Comment: Interpretive data Negative: <3 units/mL Positive: > or equal to 3 units/mL Current interpretive data was last revised on 2016. Testing performed by: [facility], [address] [place]., [address] Blood 03/02/2025 2:53 PM CDT 03/02/2025 6:06 PM CDT us Edwin Gupta MD LAB BLOOD ORDERABLES Final Res ult D[facility]AN [facility] ([place]) [address] [facility] [place] [address] * Hepatitis panel, acute Blood (03/02/2025 2:53 PM CDT) Hep A IgM Nonreactive Nonreactive Comment: Interpretive Data: If Hep A IgM Ab is reported as Equivocal, a new sample should be drawn in two weeks for testing. Current interpretive data was last revised on 19. Testing performed by: [address] [address] Hep B core IgM Nonreactive Nonreactive Power [facility] ([place]) Comment: Interpretive Data If HepB Core IgM Ab is reported as Equivocal, a new sample should be drawn in two weeks for testing. Current interpretive data was last revised on 19. Testing performed by: [facility], [address] [place] [address]., [id number] Hep C Ab Nonreactive Nonreactive DYAN KELLY ([place]) Comment: Interpretive Data Nonreactive: Antibodies to HCV not detected. Does NOT exclude the possibility of recent exposure to HCV. Equivocal: Equivocal for HCV antibodies. Supplemental molecular testing will be automatically performed to determine infection status in accordance with current CDC screening recommendations. Reactive: Positive for HCV antibodies. This may represent current or past HCV infection. Supplemental molecular testing will be automatically performed to determine current infection status in accordance with current CDC screening recommendations. Interpretive data was last revised on 2019. Testing performed by: [address] [address] HepBsAg Nonreactive Nonreactive DYAN KELLY (LOKI) Comment:Testing performed by : [address] [address] Blood 03/02/2025 2:53 PM CDT 03/05/2025 11:22 AM CDT Edwin Gupta MD LAB MICROBIOLOGY - GENERAL ORD ERABLES Final Result Performing Organization Address [facility] Co de Phone Number DYAN KELLY (LOKI) [address] [facility] [place] [employer] [address] * Hepatitis B surface antibody (immune status) Blood (03/02/2025 2:53 PM CDT) HBsAb (immune status) Nonreactive Comment: Interpretive Data Nonreactive: This result is consistent with a lack of immunity to Hepatitis B Virus when used in the setting of routine screening. Equivocal: The immune status of the individual should be further assessed, if appropriate, after consideration of clinical status, risk factors, and additional diagnostic information. Reactive: This result is consistent with immunity to Hepatitis B Virus when used in the setting of routine screening. Current interpretive data was last revised on 19. Testing performed by: [facility], [address] [place] [address]., [id number] Blood 03/02/2025 2:53 PM CDT 03/02/2025 5:23 PM CDT Edwin Gupta MD LAB MICROBIOLOGY - GENERAL ORD ERABLES Final Result Performing Organization Address City/[facility] Co de Phone Number DYAN KELLY (LOKI) [address] [facility] [place] [address] * Erythrocyte sedimentation rate (03/02/2025 2:53 PM CDT) Erythrocyte sedimentation rate 12 1 - 30 mm/hr Blood 03/02/2025 2:53 PM CDT 03/02/2025 3:22 PM CDT us Edwin Gupta MD LAB BLOOD ORDERABLES Final Res ult DYAN KELLY ([place]) 1 [place] [address] * (ABNORMAL) Rheumatoid factor (03/02/2025 2:53 PM CDT) Rheumatoid factor, quant 40(H) <=15 IUnits/mL Comment:Testing performed by : [facility], [address] [place] [address]., [id number] Blood 03/02/2025 2:53 PM CDT 03/02/2025 5:22 PM CDT us Edwin Gupta MD LAB BLOOD ORDERABLES Final Res ult Performing Organization Address [facility]/ZIP Co de Phone Number DYAN KELLY ([place]) 1 [place] [address] * CRP (acute phase) (03/02/2025 2:53 PM CDT) CRP <3.0 <=10.0 mg/L DYAN HERBERT ([place]) Blood 03/02/2025 2:53 PM CDT 03/02/2025 3:22 PM CDT us Edwin Gupta MD LAB BLOOD ORDERABLES Final Res ult Performing Organization Address City/[facility]/ZIP Co de Phone Number DYAN KELLY ([place]) 1 [place] [address] * (ABNORMAL) Uric acid (03/02/2025 2:53 PM CDT) Uric acid 7.5(H) 2.5 - 7.0 mg/dL DYAN KELLY ([place]) Blood 03/02/2025 2:53 PM CDT 03/02/2025 3:22 PM CDT Edwin Gupta MD LAB BLOOD ORDERABLES Final Res ult DYAN KELLY ([place]) [address] [facility] [place] [address] * (ABNORMAL) TSH (03/02/2025 2:53 PM CDT) Thyroid Stimulating Hormone 5.93(H) 0.30 - 4.20 mcIUnit/mL DYAN KELLY ([place]) Blood 03/02/2025 2:53 PM CDT 03/02/2025 3:22 PM CDT Edwin Gupta MD LAB BLOOD ORDERABLES Final Res ult Performing Organization Address [facility]/ZIP Co de Phone Number DYAN KELLY ([place]) [address] [facility] [place] [address] * Phosphorus (03/02/2025 2:53 PM CDT) Phosphorus, pl 2.6 2.3 - 4.5 mg/dL DARYNLALA KELLY ([place]) Blood 03/02/2025 2:53 PM CDT 03/02/2025 3:22 PM CDT Edwin Gupta MD LAB BLOOD ORDERABLES Final Res ult Performing Organization Address City/[facility] Co de Phone Number DYAN KELLY ([place]) [address] [facility] [place] [address] * Bilirubin, direct (03/02/2025 2:53 PM CDT) Bilirubin, direct 0.1 0.1 - 0.3 mg/dL DYAN KELLY ([place]) Blood 03/02/2025 2:53 PM CDT 03/02/2025 3:22 PM CDT Edwin Gupta MD LAB BLOOD ORDERABLES Final Res ult [facility] ([place]) 1 [facility] [place] [address] * (ABNORMAL) Comprehensive metabolic panel (03/02/2025 2:53 PM CDT) Sodium 139 135 - 145 mmol/L [facility] ([place]) Potassium, pl 4.4 3.3 - 4.9 mmol/L [facility] ([place]) Chloride 102 97 - 110 mmol/L [facility] ([place]) CO2 25 22 - 32 mmol/L [facility] ([place]) Anion gap 12 2 - 15 mmol/L [facility] ([place]) BUN 38(H) 6 - 25 mg/dL [facility] ([place]) Creatinine 1.59(H) 0.60 - 1.10 mg/dL [facility] ([place]) Glucose 201(H) 70 - 199 mg/dL [facility] ([place]) [...] interpretive data was last revised 2022. Calcium 9.3 8.5 - 10.3 mg/dL [facility] ([place]) Bilirubin, total 0.3 0.1 - 1.2 mg/dL [facility] ([place]) Protein, pl 6.9 6.5 - 8.5 g/dL [facility] ([place]) Albumin 4.3 3.5 - 5.0 g/dL [facility] ([place]) Alk phos 50 40 - 130 Units/L [facility] ([place]) ALT 10 7 - 45 Units/L [facility] ([place]) AST 22 10 - 45 Units/L [facility] ([place]) Blood 03/02/2025 2:53 PM CDT 03/02/2025 3:22 PM CDT Edwin Gupta MD LAB BLOOD ORDERABLES Final Res ult DYAN KELLY ([place]) 1 [facility] [employer] [place] [address] * (ABNORMAL) Urinalysis reflex to microscopic (03/02/2025 2:50 PM CDT) Color, ur Yellow Yellow Clarity, ur Clear Clear [facility] ([place]) Specific gravity, ur 1.012 1.003 - 1.030 [facility] ([place]) pH, urine 6.0 [facility] ([place]) Comment: Interpretive Data U rine pH is affected by diet, medications, systemic acid-base disturbances, and renal tubular function. pH may affect urinary stone formation. For example, urine pH below 6.0 may help reduce the tendency for calcium phosphate stones and pH greater than 6.0 may reduce the tendency for uric acid stone formation. Source: [facility] Current Interpretive Data was last revised on 2017 Protein, ur ql Negative Negative [facility] ([place]) Glucose, ur ql 4+(A) Negative [facility] ([place]) Ketones, ur Negative Negative [facility] ([place]) Bilirubin, ur Negative Negative [facility] ([place]) Blood, ur Negative Negative [facility] ([place]) Urobilinogen, ur <2.0 <2.0 mg/dL [facility] ([place]) Nitrite, ur Negative Negative [facility] ([place]) Leukocyte esterase, ur Negative Negative [facility] ([place]) UA reflex comment Reflex conditions for microscopic UA not met. [facility] ([place]) Urine 03/02/2025 2:50 PM CDT 03/02/2025 3:30 PM CDT us Edwin Gupta MD LAB URINE ORDERABLES Final Res ult DYAN KELLY ([place]) 1 [facility] [place] [address] * XR Chest 1 View (02/27/2025 2:14 PM CDT) Anatomical Region Laterality Modality Body, Chest N/A Computed Radiogr aphy 03/14/2025 10:2 1 AM CDT Narrative 03/14/2025 10:25 AM CDT EXAM DESCRIPTION: XR CHEST 1 VIEW REASON FOR STUDY: J18.9 Hx of RA Best obtainable images due to pt ability TECHNIQUE: Single radiographic view(s) of the chest. COMPARISON: 01/09/2024 FINDINGS: There is suboptimal patient positioning. LUNGS: No focal opacity, pleural effusion, or pneumothorax. HEART/MEDIASTINUM: Cardiac silhouette normal in size. Mediastinal and hilar contours appear normal. LINES/TUBES: None. BONES: No acute osseous abnormality. IMPRESSION: Suboptimal patient positioning. No acute cardiopulmonary abnormality appreciated. THIS IS AN ELECTRONICALLY VERIFIED FINAL REPORT 03/14/2025 10:25 AM - Electronically signed by Suleman Wilkinson M.D. AM: AM Report ID: [id number] Reading Location: [id number] Procedure Note Suleman Wilkinson MD - 03/14/2025 EXAM DESCRIPTION: XR CHEST 1 VIEW REASON FOR STUDY: J18.9 Hx of RA Best obtainable images due to pt ability TECHNIQUE: Single radiographic view(s) of the chest. COMPARISON: 01/09/2024 FINDINGS: There is suboptimal patient positioning. LUNGS: No focal opacity, pleural effusion, or pneumothorax. HEART/MEDIASTINUM: Cardiac silhouette normal in size. Mediastinal andhilar contours appear normal. LINES/TUBES: None. BONES: No acute osseous abnormality. IMPRESSION: Suboptimal patient positioning. No acute cardiopulmonary abnormality appreciated. THIS IS AN ELECTRONICALLY VERIFIED FINAL REPORT 03/14/2025 10:25 AM - Electronically signed by Suleman Wilkinson M.D. AM: AM Report ID: [id number] Reading Location: [id number] Sharon Moya MD IMG XR PROCEDURES Final Resul t * XR Foot Right 2 Views (02/27/2025 2:14 PM CDT) Anatomical Region Laterality Modality Lower Extremities, Foot Right Computed Radiography 02/28/2025 3:39 PM CDT Narrative 02/28/2025 3:46 PM CDT EXAM DESCRIPTION: 1. XR SPINE LUMBAR 2 OR 3 VIEWS; 2. XR SACROILIAC JOINTS 3 OR MORE VIEWS; 3. XR FOOT LEFT 2 VIEWS; 4. XR FOOT RIGHT 2 VIEWS; 5. XR HAND LEFT 2 VIEWS; 6. XR HAND RIGHT 2 VIEWS REASON FOR STUDY: M13.80 Rheumatoid arthritis. Inflammatory arthritis. Low back, bilateral sacroiliac joint, hand and foot pain. FINDINGS: Three views lumbar spine, three views sacroiliac joints two views each hand and two views each foot submitted with comparison 01/09/2024, 06/23/2019. Lumbar spine: No acute fracture. Mild rotary levoscoliosis of the lumbar spine. Mild L2-L4 and moderate L4-S1 degenerative disc disease with inferior lumbar facet osteoarthritis. Arterial atherosclerosis noted. Catheter overlies the abdomen. Sacroiliac joints: No erosions. The sacroiliac joints are normal. The foraminal arcades are intact. Mild bilateral hip osteoarthritis. Hands: No erosions. No acute fracture. Bilateral ulnar negative variance. Mild bilateral basal thumb joint osteoarthritis. Mild bilateral interphalangeal joint osteoarthritis. No dorsal wrist soft tissue swelling. Feet: No erosions. Achilles enthesophytes and tiny heel spurs. There is suggestion of bilateral pes planovalgus. Mild bilateral midfoot osteoarthritis. Bilateral hallux valgus with 1st metatarsophalangeal joint osteoarthritis. Lesser hammertoe deformities. IMPRESSION: 1. No radiographic evidence of inflammatory arthritis. 2. Mild L2-L4 and moderate L4-S1 degenerative disc disease with inferior lumbar facet osteoarthritis. 3. Mild bilateral basal thumb joint and interphalangeal joint osteoarthritis. 4. Bilateral hallux valgus with 1st metatarsophalangeal joint osteoarthritis. 5. Suggestion of bilateral pes planovalgus with midfoot osteoarthritis. THIS IS AN ELECTRONICALLY VERIFIED FINAL REPORT 02/28/2025 3:46 PM - Electronically signed by Jerzy Velazquez M.D. MF: BREANNA Report ID: [id number] Reading Location: [id number] Procedure Note Jerzy Velazquez MD - 02/28/2025 EXAM DESCRIPTION: 1. XR SPINE LUMBAR 2 OR 3 VIEWS; 2. XR SACROILIAC JOINTS 3 OR MORE VIEWS; 3. XR FOOT LEFT 2 VIEWS; 4. XR FOOT RIGHT 2 VIEWS; 5. XR HAND LEFT 2 VIEWS; 6. XR HAND RIGHT 2 VIEWS REASON FOR STUDY: M13.80 Rheumatoid arthritis. Inflammatory arthritis. Low back, bilateralsacroiliac joint, hand and foot pain. FINDINGS: Three views lumbar spine, three views sacroiliac joints two views eachhand and two views each foot submitted with comparison 01/09/2024,06/23/2019. Lumbar spine: No acute fracture. Mild rotary levoscoliosis of the lumbar spine. MildL2-L4 and moderate L4-S1 degenerative disc disease with inferior lumbar facet osteoarthritis. Arterial atherosclerosis noted. Catheter overlies the abdomen. Sacroiliac joints: No erosions. The sacroiliac joints are normal. The foraminal arcades are intact. Mild bilateral hip osteoarthritis. Hands: No erosions. No acute fracture. Bilateral ulnar negative variance. Mild bilateral basal thumb joint osteoarthritis. Mild bilateralinterphalangeal joint osteoarthritis. No dorsal wrist soft tissue swelling. Feet: No erosions. Achilles enthesophytes and tiny heel spurs. There issuggestion of bilateral pes planovalgus. Mild bilateral midfoot osteoarthritis. Bilateral hallux valgus with 1st metatarsophalangeal joint osteoarthritis. Lesser hammertoe deformities. IMPRESSION: 1. No radiographic evidence of inflammatory arthritis. 2. Mild L2-L4 and moderate L4-S1 degenerative disc disease with inferior lumbar facet osteoarthritis. 3. Mild bilateral basal thumb joint and interphalangeal jointosteoarthritis. 4. Bilateral hallux valgus with 1st metatarsophalangeal jointosteoarthritis. 5. Suggestion of bilateral pes planovalgus with midfootosteoarthritis. THIS IS AN ELECTRONICALLY VERIFIED FINAL REPORT 02/28/2025 3:46 PM - Electronically signed by Jerzy Velazquez M.D. MF: BREANNA Report ID: [id number] Reading Location: [id number] Edwin Gupta MD IMG XR PROCEDURES Final Result * XR Foot Left 2 Views (02/27/2025 2:14 PM CDT) Anatomical Region Laterality Modality Lower Extremities, Foot Left Computed Radiography 02/28/2025 3:39 PM CDT Narrative 02/28/2025 3:46 PM CDT EXAM DESCRIPTION: 1. XR SPINE LUMBAR 2 OR 3 VIEWS; 2. XR SACROILIAC JOINTS 3 OR MORE VIEWS; 3. XR FOOT LEFT 2 VIEWS; 4. XR FOOT RIGHT 2 VIEWS; 5. XR HAND LEFT 2 VIEWS; 6. XR HAND RIGHT 2 VIEWS REASON FOR STUDY: M13.80 Rheumatoid arthritis. Inflammatory arthritis. Low back, bilateral sacroiliac joint, hand and foot pain. FINDINGS: Three views lumbar spine, three views sacroiliac joints two views each hand and two views each foot submitted with comparison 01/09/2024, 06/23/2019. Lumbar spine: No acute fracture. Mild rotary levoscoliosis of the lumbar spine. Mild L2-L4 and moderate L4-S1 degenerative disc disease with inferior lumbar facet osteoarthritis. Arterial atherosclerosis noted. Catheter overlies the abdomen. Sacroiliac joints: No erosions. The sacroiliac joints are normal. The foraminal arcades are intact. Mild bilateral hip osteoarthritis. Hands: No erosions. No acute fracture. Bilateral ulnar negative variance. Mild bilateral basal thumb joint osteoarthritis. Mild bilateral interphalangeal joint osteoarthritis. No dorsal wrist soft tissue swelling. Feet: No erosions. Achilles enthesophytes and tiny heel spurs. There is suggestion of bilateral pes planovalgus. Mild bilateral midfoot osteoarthritis. Bilateral hallux valgus with 1st metatarsophalangeal joint osteoarthritis. Lesser hammertoe deformities. IMPRESSION: 1. No radiographic evidence of inflammatory arthritis. 2. Mild L2-L4 and moderate L4-S1 degenerative disc disease with inferior lumbar facet osteoarthritis. 3. Mild bilateral basal thumb joint and interphalangeal joint osteoarthritis. 4. Bilateral hallux valgus with 1st metatarsophalangeal joint osteoarthritis. 5. Suggestion of bilateral pes planovalgus with midfoot osteoarthritis. THIS IS AN ELECTRONICALLY VERIFIED FINAL REPORT 02/28/2025 3:46 PM - Electronically signed by Jerzy Velazquez M.D. MF: BREANNA Report ID: [id number] Reading Location: [place] [address] Procedure Note Jerzy Velazquez MD - 02/28/2025 EXAM DESCRIPTION: 1. XR SPINE LUMBAR 2 OR 3 VIEWS; 2. XR SACROILIAC JOINTS 3 OR MORE VIEWS; 3. XR FOOT LEFT 2 VIEWS; 4. XR FOOT RIGHT 2 VIEWS; 5. XR HAND LEFT 2 VIEWS; 6. XR HAND RIGHT 2 VIEWS REASON FOR STUDY: M13.80 Rheumatoid arthritis. Inflammatory arthritis. Low back, bilateralsacroiliac joint, hand and foot pain. FINDINGS: Three views lumbar spine, three views sacroiliac joints two views eachhand and two views each foot submitted with comparison 01/09/2024,06/23/2019. Lumbar spine: No acute fracture. Mild rotary levoscoliosis of the lumbar spine. MildL2-L4 and moderate L4-S1 degenerative disc disease with inferior lumbar facet osteoarthritis. Arterial atherosclerosis noted. Catheter overlies the abdomen. Sacroiliac joints: No erosions. The sacroiliac joints are normal. The foraminal arcades are intact. Mild bilateral hip osteoarthritis. Hands: No erosions. No acute fracture. Bilateral ulnar negative variance. Mild bilateral basal thumb joint osteoarthritis. Mild bilateralinterphalangeal joint osteoarthritis. No dorsal wrist soft tissue swelling. Feet: No erosions. Achilles enthesophytes and tiny heel spurs. There issuggestion of bilateral pes planovalgus. Mild bilateral midfoot osteoarthritis. Bilateral hallux valgus with 1st metatarsophalangeal joint osteoarthritis. Lesser hammertoe deformities. IMPRESSION: 1. No radiographic evidence of inflammatory arthritis. 2. Mild L2-L4 and moderate L4-S1 degenerative disc disease with inferior lumbar facet osteoarthritis. 3. Mild bilateral basal thumb joint and interphalangeal jointosteoarthritis. 4. Bilateral hallux valgus with 1st metatarsophalangeal jointosteoarthritis. 5. Suggestion of bilateral pes planovalgus with midfootosteoarthritis. THIS IS AN ELECTRONICALLY VERIFIED FINAL REPORT 02/28/2025 3:46 PM - Electronically signed by Jerzy Velazquez M.D. MF: BREANNA Report ID: [id number] Reading Location: [id number] Edwin Gupta MD IMReagan XR PROCEDURES Final Result * XR Hand Right 2 Views (02/27/2025 2:14 PM CDT) Anatomical Region Laterality Modality Upper Extremities, Hand Right Computed Radiography 02/28/2025 3:39 PM CDT Narrative 02/28/2025 3:46 PM CDT EXAM DESCRIPTION: 1. XR SPINE LUMBAR 2 OR 3 VIEWS; 2. XR SACROILIAC JOINTS 3 OR MORE VIEWS; 3. XR FOOT LEFT 2 VIEWS; 4. XR FOOT RIGHT 2 VIEWS; 5. XR HAND LEFT 2 VIEWS; 6. XR HAND RIGHT 2 VIEWS REASON FOR STUDY: M13.80 Rheumatoid arthritis. Inflammatory arthritis. Low back, bilateral sacroiliac joint, hand and foot pain. FINDINGS: Three views lumbar spine, three views sacroiliac joints two views each hand and two views each foot submitted with comparison 01/09/2024, 06/23/2019. Lumbar spine: No acute fracture. Mild rotary levoscoliosis of the lumbar spine. Mild L2-L4 and moderate L4-S1 degenerative disc disease with inferior lumbar facet osteoarthritis. Arterial atherosclerosis noted. Catheter overlies the abdomen. Sacroiliac joints: No erosions. The sacroiliac joints are normal. The foraminal arcades are intact. Mild bilateral hip osteoarthritis. Hands: No erosions. No acute fracture. Bilateral ulnar negative variance. Mild bilateral basal thumb joint osteoarthritis. Mild bilateral interphalangeal joint osteoarthritis. No dorsal wrist soft tissue swelling. Feet: No erosions. Achilles enthesophytes and tiny heel spurs. There is suggestion of bilateral pes planovalgus. Mild bilateral midfoot osteoarthritis. Bilateral hallux valgus with 1st metatarsophalangeal joint osteoarthritis. Lesser hammertoe deformities. IMPRESSION: 1. No radiographic evidence of inflammatory arthritis. 2. Mild L2-L4 and moderate L4-S1 degenerative disc disease with inferior lumbar facet osteoarthritis. 3. Mild bilateral basal thumb joint and interphalangeal joint osteoarthritis. 4. Bilateral hallux valgus with 1st metatarsophalangeal joint osteoarthritis. 5. Suggestion of bilateral pes planovalgus with midfoot osteoarthritis. THIS IS AN ELECTRONICALLY VERIFIED FINAL REPORT 02/28/2025 3:46 PM - Electronically signed by Jerzy Velazquez M.D. MF: BREANNA Report ID: [id number] Reading Location: [place] [address] Procedure Note Jerzy Velazquez MD - 02/28/2025 EXAM DESCRIPTION: 1. XR SPINE LUMBAR 2 OR 3 VIEWS; 2. XR SACROILIAC JOINTS 3 OR MORE VIEWS; 3. XR FOOT LEFT 2 VIEWS; 4. XR FOOT RIGHT 2 VIEWS; 5. XR HAND LEFT 2 VIEWS; 6. XR HAND RIGHT 2 VIEWS REASON FOR STUDY: M13.80 Rheumatoid arthritis. Inflammatory arthritis. Low back, bilateralsacroiliac joint, hand and foot pain. FINDINGS: Three views lumbar spine, three views sacroiliac joints two views eachhand and two views each foot submitted with comparison 01/09/2024,06/23/2019. Lumbar spine: No acute fracture. Mild rotary levoscoliosis of the lumbar spine. MildL2-L4 and moderate L4-S1 degenerative disc disease with inferior lumbar facet osteoarthritis. Arterial atherosclerosis noted. Catheter overlies the abdomen. Sacroiliac joints: No erosions. The sacroiliac joints are normal. The foraminal arcades are intact. Mild bilateral hip osteoarthritis. Hands: No erosions. No acute fracture. Bilateral ulnar negative variance. Mild bilateral basal thumb joint osteoarthritis. Mild bilateralinterphalangeal joint osteoarthritis. No dorsal wrist soft tissue swelling. Feet: No erosions. Achilles enthesophytes and tiny heel spurs. There issuggestion of bilateral pes planovalgus. Mild bilateral midfoot osteoarthritis. Bilateral hallux valgus with 1st metatarsophalangeal joint osteoarthritis. Lesser hammertoe deformities. IMPRESSION: 1. No radiographic evidence of inflammatory arthritis. 2. Mild L2-L4 and moderate L4-S1 degenerative disc disease with inferior lumbar facet osteoarthritis. 3. Mild bilateral basal thumb joint and interphalangeal jointosteoarthritis. 4. Bilateral hallux valgus with 1st metatarsophalangeal jointosteoarthritis. 5. Suggestion of bilateral pes planovalgus with midfootosteoarthritis. THIS IS AN ELECTRONICALLY VERIFIED FINAL REPORT 02/28/2025 3:46 PM - Electronically signed by Jerzy Velazquez M.D. MF: BREANNA Report ID: [id number] Reading Location: [place] [address] Edwin Gupta MD IMG XR PROCEDURES Final Result * XR Hand Left 2 Views (02/27/2025 2:14 PM CDT) Anatomical Region Laterality Modality Upper Extremities, Hand Left Computed Radiography 02/28/2025 3:39 PM CDT Narrative 02/28/2025 3:46 PM CDT EXAM DESCRIPTION: 1. XR SPINE LUMBAR 2 OR 3 VIEWS; 2. XR SACROILIAC JOINTS 3 OR MORE VIEWS; 3. XR FOOT LEFT 2 VIEWS; 4. XR FOOT RIGHT 2 VIEWS; 5. XR HAND LEFT 2 VIEWS; 6. XR HAND RIGHT 2 VIEWS REASON FOR STUDY: M13.80 Rheumatoid arthritis. Inflammatory arthritis. Low back, bilateral sacroiliac joint, hand and foot pain. FINDINGS: Three views lumbar spine, three views sacroiliac joints two views each hand and two views each foot submitted with comparison 01/09/2024, 06/23/2019. Lumbar spine: No acute fracture. Mild rotary levoscoliosis of the lumbar spine. Mild L2-L4 and moderate L4-S1 degenerative disc disease with inferior lumbar facet osteoarthritis. Arterial atherosclerosis noted. Catheter overlies the abdomen. Sacroiliac joints: No erosions. The sacroiliac joints are normal. The foraminal arcades are intact. Mild bilateral hip osteoarthritis. Hands: No erosions. No acute fracture. Bilateral ulnar negative variance. Mild bilateral basal thumb joint osteoarthritis. Mild bilateral interphalangeal joint osteoarthritis. No dorsal wrist soft tissue swelling. Feet: No erosions. Achilles enthesophytes and tiny heel spurs. There is suggestion of bilateral pes planovalgus. Mild bilateral midfoot osteoarthritis. Bilateral hallux valgus with 1st metatarsophalangeal joint osteoarthritis. Lesser hammertoe deformities. IMPRESSION: 1. No radiographic evidence of inflammatory arthritis. 2. Mild L2-L4 and moderate L4-S1 degenerative disc disease with inferior lumbar facet osteoarthritis. 3. Mild bilateral basal thumb joint and interphalangeal joint osteoarthritis. 4. Bilateral hallux valgus with 1st metatarsophalangeal joint osteoarthritis. 5. Suggestion of bilateral pes planovalgus with midfoot osteoarthritis. THIS IS AN ELECTRONICALLY VERIFIED FINAL REPORT 02/28/2025 3:46 PM - Electronically signed by Jerzy Velazquez M.D. MF: BREANNA Report ID: [id number] Reading Location: [id number] Procedure Note Jerzy Velazquez MD - 02/28/2025 EXAM DESCRIPTION: 1. XR SPINE LUMBAR 2 OR 3 VIEWS; 2. XR SACROILIAC JOINTS 3 OR MORE VIEWS; 3. XR FOOT LEFT 2 VIEWS; 4. XR FOOT RIGHT 2 VIEWS; 5. XR HAND LEFT 2 VIEWS; 6. XR HAND RIGHT 2 VIEWS REASON FOR STUDY: M13.80 Rheumatoid arthritis. Inflammatory arthritis. Low back, bilateralsacroiliac joint, hand and foot pain. FINDINGS: Three views lumbar spine, three views sacroiliac joints two views eachhand and two views each foot submitted with comparison 01/09/2024,06/23/2019. Lumbar spine: No acute fracture. Mild rotary levoscoliosis of the lumbar spine. MildL2-L4 and moderate L4-S1 degenerative disc disease with inferior lumbar facet osteoarthritis. Arterial atherosclerosis noted. Catheter overlies the abdomen. Sacroiliac joints: No erosions. The sacroiliac joints are normal. The foraminal arcades are intact. Mild bilateral hip osteoarthritis. Hands: No erosions. No acute fracture. Bilateral ulnar negative variance. Mild bilateral basal thumb joint osteoarthritis. Mild bilateralinterphalangeal joint osteoarthritis. No dorsal wrist soft tissue swelling. Feet: No erosions. Achilles enthesophytes and tiny heel spurs. There issuggestion of bilateral pes planovalgus. Mild bilateral midfoot osteoarthritis. Bilateral hallux valgus with 1st metatarsophalangeal joint osteoarthritis. Lesser hammertoe deformities. IMPRESSION: 1. No radiographic evidence of inflammatory arthritis. 2. Mild L2-L4 and moderate L4-S1 degenerative disc disease with inferior lumbar facet osteoarthritis. 3. Mild bilateral basal thumb joint and interphalangeal jointosteoarthritis. 4. Bilateral hallux valgus with 1st metatarsophalangeal jointosteoarthritis. 5. Suggestion of bilateral pes planovalgus with midfootosteoarthritis. THIS IS AN ELECTRONICALLY VERIFIED FINAL REPORT 02/28/2025 3:46 PM - Electronically signed by Jerzy Velazquez M.D. MF: BREANNA Report ID: [id number] Reading Location: [id number] Edwin Gupta MD IMG XR PROCEDURES Final Result * XR Sacroiliac Joints 3 or More Views (02/27/2025 2:14 PM CDT) Anatomical Region Laterality Modality Pelvis, Body N/A Computed Radiogr aphy 02/28/2025 3:39 PM CDT Narrative 02/28/2025 3:46 PM CDT EXAM DESCRIPTION: 1. XR SPINE LUMBAR 2 OR 3 VIEWS; 2. XR SACROILIAC JOINTS 3 OR MORE VIEWS; 3. XR FOOT LEFT 2 VIEWS; 4. XR FOOT RIGHT 2 VIEWS; 5. XR HAND LEFT 2 VIEWS; 6. XR HAND RIGHT 2 VIEWS REASON FOR STUDY: M13.80 Rheumatoid arthritis. Inflammatory arthritis. Low back, bilateral sacroiliac joint, hand and foot pain. FINDINGS: Three views lumbar spine, three views sacroiliac joints two views each hand and two views each foot submitted with comparison 01/09/2024, 06/23/2019. Lumbar spine: No acute fracture. Mild rotary levoscoliosis of the lumbar spine. Mild L2-L4 and moderate L4-S1 degenerative disc disease with inferior lumbar facet osteoarthritis. Arterial atherosclerosis noted. Catheter overlies the abdomen. Sacroiliac joints: No erosions. The sacroiliac joints are normal. The foraminal arcades are intact. Mild bilateral hip osteoarthritis. Hands: No erosions. No acute fracture. Bilateral ulnar negative variance. Mild bilateral basal thumb joint osteoarthritis. Mild bilateral interphalangeal joint osteoarthritis. No dorsal wrist soft tissue swelling. Feet: No erosions. Achilles enthesophytes and tiny heel spurs. There is suggestion of bilateral pes planovalgus. Mild bilateral midfoot osteoarthritis. Bilateral hallux valgus with 1st metatarsophalangeal joint osteoarthritis. Lesser hammertoe deformities. IMPRESSION: 1. No radiographic evidence of inflammatory arthritis. 2. Mild L2-L4 and moderate L4-S1 degenerative disc disease with inferior lumbar facet osteoarthritis. 3. Mild bilateral basal thumb joint and interphalangeal joint osteoarthritis. 4. Bilateral hallux valgus with 1st metatarsophalangeal joint osteoarthritis. 5. Suggestion of bilateral pes planovalgus with midfoot osteoarthritis. THIS IS AN ELECTRONICALLY VERIFIED FINAL REPORT 02/28/2025 3:46 PM - Electronically signed by Jerzy Velazquez M.D. MF: BREANNA Report ID: [id number] Reading Location: [id number] Procedure Note Jerzy Velazquez MD - 02/28/2025 EXAM DESCRIPTION: 1. XR SPINE LUMBAR 2 OR 3 VIEWS; 2. XR SACROILIAC JOINTS 3 OR MORE VIEWS; 3. XR FOOT LEFT 2 VIEWS; 4. XR FOOT RIGHT 2 VIEWS; 5. XR HAND LEFT 2 VIEWS; 6. XR HAND RIGHT 2 VIEWS REASON FOR STUDY: M13.80 Rheumatoid arthritis. Inflammatory arthritis. Low back, bilateralsacroiliac joint, hand and foot pain. FINDINGS: Three views lumbar spine, three views sacroiliac joints two views eachhand and two views each foot submitted with comparison 01/09/2024,06/23/2019. Lumbar spine: No acute fracture. Mild rotary levoscoliosis of the lumbar spine. MildL2-L4 and moderate L4-S1 degenerative disc disease with inferior lumbar facet osteoarthritis. Arterial atherosclerosis noted. Catheter overlies the abdomen. Sacroiliac joints: No erosions. The sacroiliac joints are normal. The foraminal arcades are intact. Mild bilateral hip osteoarthritis. Hands: No erosions. No acute fracture. Bilateral ulnar negative variance. Mild bilateral basal thumb joint osteoarthritis. Mild bilateralinterphalangeal joint osteoarthritis. No dorsal wrist soft tissue swelling. Feet: No erosions. Achilles enthesophytes and tiny heel spurs. There issuggestion of bilateral pes planovalgus. Mild bilateral midfoot osteoarthritis. Bilateral hallux valgus with 1st metatarsophalangeal joint osteoarthritis. Lesser hammertoe deformities. IMPRESSION: 1. No radiographic evidence of inflammatory arthritis. 2. Mild L2-L4 and moderate L4-S1 degenerative disc disease with inferior lumbar facet osteoarthritis. 3. Mild bilateral basal thumb joint and interphalangeal jointosteoarthritis. 4. Bilateral hallux valgus with 1st metatarsophalangeal jointosteoarthritis. 5. Suggestion of bilateral pes planovalgus with midfootosteoarthritis. THIS IS AN ELECTRONICALLY VERIFIED FINAL REPORT 02/28/2025 3:46 PM - Electronically signed by Jerzy Velazquez M.D. MF: BREANNA Report ID: [id number] Reading Location: [place] [address] Edwin Gupta MD IMG XR PROCEDURES Final Result * XR Spine Lumbar 2 or 3 Views (02/27/2025 2:14 PM CDT) Anatomical Region Laterality Modality Spine N/A Computed Radiogr aphy 02/28/2025 3:39 PM CDT Narrative 02/28/2025 3:46 PM CDT EXAM DESCRIPTION: 1. XR SPINE LUMBAR 2 OR 3 VIEWS; 2. XR SACROILIAC JOINTS 3 OR MORE VIEWS; 3. XR FOOT LEFT 2 VIEWS; 4. XR FOOT RIGHT 2 VIEWS; 5. XR HAND LEFT 2 VIEWS; 6. XR HAND RIGHT 2 VIEWS REASON FOR STUDY: M13.80 Rheumatoid arthritis. Inflammatory arthritis. Low back, bilateral sacroiliac joint, hand and foot pain. FINDINGS: Three views lumbar spine, three views sacroiliac joints two views each hand and two views each foot submitted with comparison 01/09/2024, 06/23/2019. Lumbar spine: No acute fracture. Mild rotary levoscoliosis of the lumbar spine. Mild L2-L4 and moderate L4-S1 degenerative disc disease with inferior lumbar facet osteoarthritis. Arterial atherosclerosis noted. Catheter overlies the abdomen. Sacroiliac joints: No erosions. The sacroiliac joints are normal. The foraminal arcades are intact. Mild bilateral hip osteoarthritis. Hands: No erosions. No acute fracture. Bilateral ulnar negative variance. Mild bilateral basal thumb joint osteoarthritis. Mild bilateral interphalangeal joint osteoarthritis. No dorsal wrist soft tissue swelling. Feet: No erosions. Achilles enthesophytes and tiny heel spurs. There is suggestion of bilateral pes planovalgus. Mild bilateral midfoot osteoarthritis. Bilateral hallux valgus with 1st metatarsophalangeal joint osteoarthritis. Lesser hammertoe deformities. IMPRESSION: 1. No radiographic evidence of inflammatory arthritis. 2. Mild L2-L4 and moderate L4-S1 degenerative disc disease with inferior lumbar facet osteoarthritis. 3. Mild bilateral basal thumb joint and interphalangeal joint osteoarthritis. 4. Bilateral hallux valgus with 1st metatarsophalangeal joint osteoarthritis. 5. Suggestion of bilateral pes planovalgus with midfoot osteoarthritis. THIS IS AN ELECTRONICALLY VERIFIED FINAL REPORT 02/28/2025 3:46 PM - Electronically signed by Jerzy Velazquez M.D. MF: BREANNA Report ID: [id number] Reading Location: [place] [address] Procedure Note Jerzy Velazquez MD - 02/28/2025 EXAM DESCRIPTION: 1. XR SPINE LUMBAR 2 OR 3 VIEWS; 2. XR SACROILIAC JOINTS 3 OR MORE VIEWS; 3. XR FOOT LEFT 2 VIEWS; 4. XR FOOT RIGHT 2 VIEWS; 5. XR HAND LEFT 2 VIEWS; 6. XR HAND RIGHT 2 VIEWS REASON FOR STUDY: M13.80 Rheumatoid arthritis. Inflammatory arthritis. Low back, bilateralsacroiliac joint, hand and foot pain. FINDINGS: Three views lumbar spine, three views sacroiliac joints two views eachhand and two views each foot submitted with comparison 01/09/2024,06/23/2019. Lumbar spine: No acute fracture. Mild rotary levoscoliosis of the lumbar spine. MildL2-L4 and moderate L4-S1 degenerative disc disease with inferior lumbar facet osteoarthritis. Arterial atherosclerosis noted. Catheter overlies the abdomen. Sacroiliac joints: No erosions. The sacroiliac joints are normal. The foraminal arcades are intact. Mild bilateral hip osteoarthritis. Hands: No erosions. No acute fracture. Bilateral ulnar negative variance. Mild bilateral basal thumb joint osteoarthritis. Mild bilateralinterphalangeal joint osteoarthritis. No dorsal wrist soft tissue swelling. Feet: No erosions. Achilles enthesophytes and tiny heel spurs. There issuggestion of bilateral pes planovalgus. Mild bilateral midfoot osteoarthritis. Bilateral hallux valgus with 1st metatarsophalangeal joint osteoarthritis. Lesser hammertoe deformities. IMPRESSION: 1. No radiographic evidence of inflammatory arthritis. 2. Mild L2-L4 and moderate L4-S1 degenerative disc disease with inferior lumbar facet osteoarthritis. 3. Mild bilateral basal thumb joint and interphalangeal jointosteoarthritis. 4. Bilateral hallux valgus with 1st metatarsophalangeal jointosteoarthritis. 5. Suggestion of bilateral pes planovalgus with midfootosteoarthritis. THIS IS AN ELECTRONICALLY VERIFIED FINAL REPORT 02/28/2025 3:46 PM - Electronically signed by Jerzy Velazquez M.D. MF: BREANNA Report ID: [id number] Reading Location: [place] [address] Edwin Gupta MD IMG XR PROCEDURES Final Result * Screening Mammogram Bilateral W Raul (01/15/2025 3:28 PM CDT) Anatomical Region Laterality Modality Breast Bilateral Mammography Impressions 01/15/2025 4:13 PM CDT Bilateral No evidence of malignancy in either breast. OVERALL BI-RADS FINAL ASSESSMENT: 2 - Benign RECOMMENDATION: Recommend bilateral annual screening mammography. Narrative 01/15/2025 4:13 PM CDT EXAMINATION: Screening Mammogram Bilateral W Raul: 01/15/2025 COMPARISON: Relevent prior studies available at the time of interpretation were reviewed, including the most recent mammogram on: 12/10/2023. TECHNIQUE: Mammography was performed with 2D and digital breast tomosynthesis (DBT) images. CAD was utilized. BREAST PARENCHYMAL COMPOSITION: There are scattered areas of fibroglandular density. FINDINGS: Suboptimal examination secondary to difficulty with patient positioning related to the patient's physical condition. There are benign appearing calcifications in both breasts without suspicious interval change. There is no new suspicious finding in [...] F with given history of: Osteoporosis Screening. Instrument Specialist/Model: Presentain SL (S/N [id number]) CLINICAL INFORMATION: Current height: 64 inches Maximum [...] Jerzy Velazquez M.D. MF: BREANNA Report ID: [id number] Reading Location: [place] [address] Procedure Note Jerzy Velazquez MD - 11/03/2023 EXAM DESCRIPTION: DEXA AXIAL SKELETON BONE DENSITY 1 OR MORE SITES REASON FOR STUDY: 63 y/o year old F with given history of:Osteoporosis Screening. Instrument Specialist/Model: Presentain SL (S/N [id number]) CLINICAL INFORMATION: Current height: 64 inches Maximum [...] Jerzy Velazquez M.D. MF: BREANNA Report ID: [id number] Reading Location: [place] [address] Sharon Moya MD IMG DXA PROCEDURES Final Resu lt * (ABNORMAL) Hemoglobin A1c (10/12/2019 6:42 AM CDT) Hgb A1C 7.7(H) 4.0 - 5.6 % DYAN KELLY ([place]) Estimated Average Glucose 174 mg/dL DYAN KELLY ([place]) Comment: The ADA recommends reporting an estimated Average Glucose (eAG) with all Hemoglobin A1c results using the equation derived from a study of 507 normal and diabetic adults. Minority populations were underrepresented and children were not included. (Diabetes Care 31:8574-2059, 2008). The eAG is not equivalent to a fasting glucose. Blood specimen (specimen) 10/12/2019 6:42 AM CDT 10/13/2019 11:17 AM CDT us Kwaku Menezes MD LAB BLOOD ORDERABLES Final Resul t DYAN KELLY ([place]) [address] [facility] [place] [address] * (ABNORMAL) Lipid panel (11/20/2018 12:47 AM [...] on 2018. HDL 21(L) >=40 mg/dL DYAN LOZA) Comment: Interpretive Data Ages < or = [...] 2018. LDL, calculated 48 <=129 mg/dL DYAN LOZA) Comment: Interpretive Data Ages < or = [...] LAB BLOOD ORDERABLES Final R esult DYAN ROBIN ([place]) [address] [facility] [place] [address] from Last 3 Months or Most Recently Relevant to Health Maintenance Insurance DR DEVINE [address] [place] [id number] ID[facility]ICARE [address] [place] [id number] [facility] MEDICARE ADVANTAGE [address] [place] [address] DEVINE [address] [place] [address] MEDICARE ADVANTAGE [place] [id number] IDPA Advance Directives For more information, please contact: [phone] * Full Code (Latest Code Status on [...] 11:50 AM 11/24/2018 10:15 PM Care Teams State Game Protector Relationship Specialty Start Date End Date Dominique Peck, JARETT [address] [place] [address] DR ABDIFATAH Pollard [address] [place] [address] PCP - General Nurse Practitioner 11/25/24 Stuart Douglas MD Surgeon Orthopedic Surgery 11/24/18 Wu Saleem MD [address] [place] [address] [address] [place] [address] Street Light Wirer Hematology and Oncology 08/22/24
--- OUTSIDE RECORDS SUMMARY | 2025-04-06 14:59 | XMS_ITS | Encounter Summary ---
Author Organization [facility] Healthcare Address [address] [place] [address] Care Team Providers Care Telephonic Nurse Case Manager Name Role Phone Javi Jones MD Unavailable [phone] Amarilis Rivera PT Unavailable Unavailable Stuart Douglas MD Unavailable [phone] Anthony Burks MD Primary Care Provider [phone] Miscellaneous, Not In File Primary Care Provider Unavailable Unknown, Notinfile Primary Care Provider Unavail able Sharon Moya MD Primary Care Provider [phone] Wu Saleem MD Unavailable [phone] Dominique Peck NP Primary Care Provider Encounter Details Date Type Department Care Team (Late st Contact Info) Description 02/12/2020 Telephone [facility] [address] [place] [address] Traci Urrutia, RT Social History Tobacco Use [...] re latives? 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 Gender Identity Not on file Sexual Orientation [...] documented as of this encounter Care Teams Telephonic Nurse Case Manager Relationship Specialty Start Date End Date Anthony Burks MD PCP - General 09/08/19 08/04/21 Miscellaneous, Not In File PCP - General 08/05/21 08/05/21 Unknown, Notinfile PCP - General 08/06/21 08/17/21 Sharon Moya MD [address] [place] [address] PCP - General 08/18/21 11/24/24 Dominique Peck NP [address] [facility] [address] A[address] [place] [address] PCP - General Nurse Practitioner 11/25/24 Javi Jones MD [address] [place] [address] Referring Physician Orthopedic Surgery 01/20/18 5 Amarilis Rivera, PT Physical Therapist Physical Therapy 01/24/18 10/05/24 Stuart Douglas MD Surgeon Orthopedic Surgery 11/24/18 Wu Saleem MD [address] [facility] [address] [place] [address] Cigarette Maker Hematology and Oncology 08/22/24 documented as of this encounter
--- OUTSIDE RECORDS SUMMARY | 2025-04-06 14:59 | XMS_ITS | Clinical Summary ---
Author Organization [facility] Address [address] [place] [address] Phone Care Team Providers Care Personnel Worker Name Role Phone Sharon Moya Primary Care Provider [phone] Allergies Active Allergy Reactions Criticality Noted Date [...] Diarrhea Low 03/02/2019 Medications ergocalciferol (VITAMIN D-2) 60196 units capsule take 1 capsule by oral [...] 03/11/20 21 Active Blood Glucose Monitoring Suppl (Tasspass Verio Flex System) w/Device kit USE TO [...] 300 mcg by mouth daily Active Lancets (Tasspass Delica Plus Ceccnh96U) misc 4 TIMES A DAY 09/26/19 22 [...] Nasal saline spray (Simply saline, Little Remedies, [place], [place]) 2 second sprays or 2 squeezes into [...] (05/03/2019): Added automatically from request for surgery [id number] Chronic kidney disease, stage 3 (moderate) 12/15 [...] file Legal Sex Female 8:46 AM [facility] Gender Identity Not on file Sexual Orientation [...] Due Date Last Done Comments COVID-19 Vaccine (2024-2 6 season) 2025 11/14/2020, 11/05/2020, 10/17/2020 Influenza Vaccine (#1) 2025 2, 07/02/2021, 04/23/2020, Additional history exists Pneumococcal PPSV23/PCV13 65 + Years / Low and Medium Risk Completed 02/13/2021, 08/25/2016, 07/12/[address] DEVINE [address] [place] [id number] [employer] MEDICARE Care Teams Personnel Worker Relationship Specialty Start Date End Date Sharon Moya PCP - General Internal Medicine 11/05/21
--- OUTSIDE RECORDS SUMMARY | 2025-04-06 14:59 | XMS_ITS | Encounter Summary ---
Author Organization [facility] Address [address] [facility] [place] [place] [address] Phone Care Team Providers Care Slinger Sequins Name Role Phone Sharon Moya MD Primary Care Provider Chapito Garcia MD Unavailable Radha Mac DPM Unavailable [phone] Reason for Visit * Reason Comments Medication Refill Encounter Details Date Type Department Care Team (Late st Contact Info) Description 09/16/2023 Refill [facility] - End[facility]ology [facility] [address] [place] [address] Chapito Garcia MD [address] [address] Medication Refill Social History Tobacco [...] Margo Abreu, RN - 09/16/2023 8:12 AM LOAN REVIEW ANALYST Requested Prescriptions Pending Prescriptions Disp Refills OneTouch Verio Strip [Pharmacy Med Name: ONE TOUCH VERIO TEST STRIP] 400 Strip 3 Si TIMES A DAY Next appt: 12/17/2023 REVIEW ANALYST documented in this encounter Plan of Treatment Upcoming Encounters Date Type Department Care Team (Late st Contact Info) Description 04/09/2025 10:30 AM CDT Home Care Visit [address] [address] Vi Conway, PT [place] 04/11/2025 2:00 AM CDT Home Care Visit [address] [address] Keyona Shen CONTOUR GRINDER [place] 04/11/2025 8:30 AM CDT Home Care Visit [address] [address] Alyson Crowder, TRAVELING PLANT OPERATOR [place] 04/13/2025 1:00 AM CDT Appointment [address] [address] Nicolle Coates, OT 04/17/2025 9:30 AM CDT Home Care Visit [facility] [address] Karen Mcgarry, TRAVELING PLANT OPERATOR 04/19/2025 9:30 AM CDT Home Care Visit [facility] [address] Karen Mcgarry, TRAVELING PLANT OPERATOR 04/23/2025 1:00 AM CDT Home Care Visit [facility] [address] Karen Mcgarry, TRAVELING PLANT OPERATOR 04/25/2025 1:00 AM CDT Appointment [address] [address] Vi Conway, PT [place] 06/28/2025 9:00 AM LOAN REVIEW ANALYST Office Visit [facility] - Endocrinology - May [address] [place] [address] Chapito Garcia MD [address] [address] documented as of this encounter Visit Diagnoses Diagnosis Type 2 diabetes mellitus with diabetic polyneuropathy, with long-term current use of insulin documented in this encounter Additional Health Concerns Infection Onset Date Last Indicated Resolved Time COVID - 19 04/12/2024 04/12/2024 04/12/2024 4:20 PM CDT COVID - 05/22/2024 05/22/2024 05/22/2024 1:03 PM LOAN REVIEW ANALYST documented as of this encounter Care Teams Slinger Sequins Relationship Specialty Start Date End Date Sharon Moya MD [address] [place] [address] PCP - General Internal Medicine 09/16/21 Chapito Garcia MD [address] [address] Consulting Physician Endocrinology 12/25/21 Radha Mac DPM [address] [address] Consulting Physician Podiatry 05/26/22 documented as of this encounter
--- OUTSIDE RECORDS SUMMARY | 2025-04-06 14:59 | XMS_ITS | Patient Health Record ---
Author Organization formerly [facility] Address [address] [place] [address] Care Team Providers Care Corporate Development Manager Name Role Phone Anthony Burks Primary Care Provider Zelda Malone Unavailable [phone] Allergies Allergen (clinical drug ingredient) Drug/Non Drug [...] Duration) Notes Start Date End Date Status Levothyroxine Sodium 150 MCG TAKE 1 TABLET BY MOUTH EVERY MORNING ON EMPTY STOMACH Active Vitamin D (Cholecalciferol) 1000 UNIT three at HS Orally Once a day; Duration: 30 days 03/10/2018 Active amLODIPine Besylate 5 mg TAKE 1 TABLET B Y MOUTH DAILY Active Loratadine 10 mg TAKE 1 TABLET BY FLORY TH DAILY Active Alendronate Sodium 70 mg TAKE 1 TABLET B Y MOUTH EVERY WEEK IN THE MORNING AT LEAST 30 MINUTES BEFORE FOOD Active Famotidine 40 mg TAKE 1 TABLET BY FLORY TH AT BEDTIME Active HumaLOG KwikPen 100 UNIT/ML INJECT 20 UNITS SUBCUTANEOUSLY AT BREAKFAST, 12 UNITS AT LUNCH, AND 14 UNITS AT DINNE; Duration: 65 Active Trimethoprim 100 mg TAKE 1 TABLET BY FLORY TH DAILY; Duration: 28 Active Furosemide 40 mg TAKE 1 TABLET BY FLORY TH DAILY; Duration: 28 Active Tamsulosin HCl 0.4 mg TAKE 1 CAPSULE BY MOUTH TWICE A DAY; Duration: 28 Active hydrOXYzine HCl 25 mg 1 tab every night by mouth when needed orally every night; Duration: 30 days Active busPIRone HCl 15 MG 1 tablet Orally thre e times a day; Duration: 30 days Active Melatonin 3 MG 1 tablet at bedtime as needed Orally Once a day; Duration: 30 days Active Ozempic (0.25 or 0.5 MG/DOSE) 2 MG/3ML as directed Subcutaneous Not-Taking glipiZIDE ER 5 mg TAKE 1 TABLET BY FLORY TH DAILY WITH FOOD; Duration: 28 Not-Taking Atorvastatin Calcium 20 mg TAKE 1 TABLET BY MOUTH DAILY; Duration: 28 Active Acetaminophen Extra Strength 500 mg TAKE 2 TABLETS BY MOUTH THREE TIMES A DAY; Duration: 28 Active CeleXA 20 MG 1 tablet Orally Once a day; Duration: 30 days Active risperiDONE 0.5 MG 1 tablet bedtime Ora lly Once a day; Duration: 30 days Active Divalproex Sodium 500 MG 2 tabs Orally t wice daily; Duration: 30 days Active Lantus SoloStar 100 UNIT/ML INJECT 45 UNITS SUBCUTANEOUSLY AT BEDTIME; Duration: 33 Active Spiriva Respimat 2.5 MCG/ACT INHALE 2 PUFFS DAILY; Duration: 30 Active Misc. Devices - Diabetic Shoe Dx: E1 1.9 Diabetes 2 Daily; Duration: 365 days 04/18/2018 Active Wheelchair - as directed for Dx M 17.0 Primary osteoarthritis of both knees 10/31/2018 Active Depend Underwear X-Large - as directed DX. z74.0 impaired mobility nightly; Duration: 365 days 03/30/2018 Active Albuterol Sulfate (2.5 MG/3ML) 0.083% 3 ml as needed Inhalation every 6 hrs; Duration: 30 days 11/28/2019 Not-Taking Super Size Bed Pad - as directed dx. z74 .0 impaired mobility nightly; Duration: 365 days 03/30/2018 Active guaiFENesin-DM 100-10 MG/5ML 10 ml as needed Orally every 4 hrs 04/14/2021 Active Montelukast Sodium 10 MG TAKE 1 TABLET B Y MOUTH EVERY DAY; Duration: 30 Active Wheelchair - as directed as neede d; Duration: 365 days 06/14/2019 Active Easy Touch Pen [place] 32G X 5 MM as directed inject four times daily; Duration: 25 Active hydrOXYzine HCl 25 MG 1 tablet as needed Orally at night; Duration: 30 days Active Aspirin Low Dose 81 mg TAKE 1 TABLET BY MOUTH ONCE DAILY; Duration: 28 Active UltiGuard SafePack Pen Needle 32G X 4 MM USE DIRECTED FOUR TIMES A DAY; Duration: 25 Active BD [employer] - as directed as needed; Duration: 365 days 12/09/2017 Active Back Support - as directed; Duratio n: 365 days 06/01/2017 Active Microlet Lancets - as directed three ti mes daily; Duration: 30 days 10/21/2017 Active Lyrica Active Nitrofurantoin Monohyd Macro 100 MG 1 capsule at bedtime with food Orally Twice a day Active Senna-Time 8.6 mg TAKE 1 TABLET BY FLORY TH AT BEDTIME as NEEDED Active Citalopram Hydrobromide 20 MG 1 tablet Orally Once a day; Duration: 30 days Active Misc. Devices - Power Scooter prn; Duration: 365 days 12/24/2017 Active Proctozone-HC 2.5 % 1 application Academic Adviser ally three times daily; Duration: 7 days 12/05/2019 Active Aspirin 81 MG TAKE 1 TABLET BY FLORY TH ONCE DAILY Orally Once a day; Duration: 30 days Active Nebulizer - as directed for dx J 44.9 externally every 4 hours as needed 04/14/2021 Active Albuterol Sulfate (2.5 MG/3ML) 0.083% 3 ml as needed for dx J44.9 Inhalation every 4 hrs 04/14/2021 Active LANCETS thin as directed to skin four times daily; Duration: 30 days 03/03/2017 Active TEST STRIPS, FORMULARY ANY DIRECTED via meter for Dx E11.9 four times daily 03/03/2017 Active MiraLax - 1/2-1 packet mixed w ith 8 ounces of fluid Orally every other day 12/25/2019 Active Diabetic Shoes n/a as directed external as directed; Duration: 365 days 01/25/2019 Active Albuterol Sulfate HFA 108 (90 Base) MCG/ACT INHALE 1 PUFF EVERY FOUR HOURS NEEDED; Duration: 33 Active Fluticasone Propionate 50 MCG/ACT USE ONE SPRAY IN EACH NOSTRIL DAILY; Duration: 60 Active Eddy Contour Test - four times daily as directed In Vitro for dx: E11.9 Type 2 diabetes; Duration: 90 days 10/13/2018 Active Potassium Chloride 20 MEQ 1 tablet with food Orally Once a day; Duration: 28 Active Immunizations Vaccine Route Administration Date Status [...] Problem Status W/U Status Risk Notes Problem Hyperkalemia (61383912) Hyperkalemia (E87.5) Active confirmed Problem Chronic pain (01856958) Other chronic pain (G89.29) Active confirmed Problem Bipolar 1 disorder (478951300) Bipolar 1 disorder (F31.9) 2016 Active confirmed Problem Former smoker (5287806) Former smoker (Z87.891) Active confirmed Problem Overweight (720157351) Over weight (E66.3) Active confirmed Problem Environmental allergy (071907221) Environmental allergies (Z91.09) Active confirmed Problem Essential hypertension (86065258) Hypertension, essential (I10) 2020 Active confirmed Problem Constipation (65428823) Constipation, unspecified constipation type (K59.00) Active confirmed Problem Gastroesophageal reflux disease (012249129) Gastroesophageal reflux disease, esophagitis presence not specified (K21.9) Active confirmed Problem Hyperlipidaemia (20265903) Hyperlipidemia, unspecified hyperlipidemia type (E78.5) Active confirmed Problem COPD - Chronic obstructive pulmonary disease (27133577) Chronic obstructive pulmonary disease, unspecified COPD type (J44.9) Active confirmed Problem Osteoarthritis of knee (666633678) Primary osteoarthritis of both knees (M17.0) Active confirmed Problem Type II diabetes mellitus without complication (193539807) Type 2 diabetes mellitus without complication, unspecified detention insulin use status (E11.9) 2016 Active confirmed Problem Pneumonia (596141465) Pneumonia due to infectious organism, unspecified laterality, unspecified part of lung (J18.9) Active confirmed 01/2021 - RESOLVED Problem Upper respiratory infection (18340080) Upper respiratory tract infection, unspecified type (J06.9) Active confirmed Problem Chronic rhinitis (11477644) Rhinitis, unspecified type (J31.0) Active confirmed Problem Acquired hypothyroidism (964659916) Acquired hypothyroidism (E03.9) Active confirmed Problem Chronic kidney disease stage 3 (disorder) (727427202) Stage 3 chronic kidney disease (N18.3) Active confirmed DR WILSON RENAL Specialist Problem Obesity (733761527) Obesity, unspecified classification, unspecified obesity type, unspecified whether serious comorbidity present (E66.9) Active confirmed Problem Dyspnea on exertion (63354438) Dyspnea on exertion (R06.00) Active confirmed Problem Osteoporosis (15958532) Osteoporosis, unspecified (M81.0) Active confirmed Vital Signs Height 69 in 01/30/2025 Weight 184 lbs 01/30/2025 BMI 27.17 kg/m2 01/30/2025 Encounters Encounter Location Date Provider Diagnosis [address] [address] 04/25/2024 Arif Habib Bipolar 1 disorder F31.[address] [address] 06/20/2024 Arif Habib Bipolar 1 disorder F31.[address] [address] 08/01/2024 Arif Habib Bipolar 1 disorder F31.[address] [address] 10/24/2024 Arif Habib Bipolar 1 disorder F31.[address] [address] 01/30/2025 Arif Habib Over weight E66.3 and Bipolar 1 disorder F31.[address] [place] [address] 04/27/2024 Anthony Burks [address] [place] [address] 07/28/2024 Arif Habib Bipolar 1 disorder F31.[address] [place] [address] 09/19/2024 Arif Habib Bipolar 1 disorder F31.[address] [place] [address] 10/24/2024 Anthony Burks [facility] [address] [place] [address] 11/03/2024 Anthony Burks [facility] [address] [place] [address] 11/09/2024 Arif Habib [address] [place] [address] [facility] [address] [address] 02/28/2025 Arif Habib Bipolar 1 disorder F31.9 Assessments Encounter Date Diagnosis (ICD Code) Assessment Notes Treatment Notes Treatment Clinical Notes Section Notes 01/30/2025 Over weight (ICD-10 - E66.3) 02/28/2025 Bipolar 1 disorder (ICD-10 - F31.9) 04/25/2024 [...] her labs done regularly at PCP office. 01/30/2025 Bipolar 1 disorder (ICD-10 - F31.9) continue current treatment. Side effects discussed. Supportive treatment provided. No involuntary movements reported. Pt said she gets her labs done regularly at PCP office. Plan Of Treatment Pending Test Test Name [...] Insured Coverage Start Date Coverage End Date [facility] Medicare Assure [address] [address] [place] [address] [id number] Khadra Beltran Self - patient is the insured 2 MEDICAID [address] [facility] [place] [address] [id number] Khadra Beltran Self - patient is the insured 5 Medical (General) History Medical History History ICD Code DM HLD hypothyroidism allergies Normal Pressure Hydrocephalus with ventr iculoperitonela shunt in 2014 Surgical History Surgery Date(Month/Year) cholecystectomy TOTAL HYSTERECTOMY APPENDECTOMY CATARACT SURGERY, COMPLEX Hospitalization History Reason Date(Month/Year) High Blood sugar- [facility] 01/2023 Pnuemonia at [facility] 09/11/19 acute ecoli infection 02/2016
--- OUTSIDE RECORDS SUMMARY | 2025-04-06 14:59 | XMS_ITS | Continuity of Care Document ---
Author Organization [facility] Address [address] [place] [address] Insurance Providers Payer Plan Claims Address Claims Phone Policy Number Group Number Relation Employer Guarantor Name Guarantor Guarantor Address Guarantor Phone MEDIC ARE [address] [address], [place] [address] [phone] Self Khadra Cmrichard [address] [place] [address] Dr [address], [place] [address] MEDIC AID - OUT OF STATE [address] [address], [place] [address] [id number] Self Khadra Cmrichard [address] [place] [address] [id number], [place] [address] MEDIC ARE [address], [place] [address] tel:[phone] Self Khadra Cmricahrd [address] [place] [address] [id number], [place] [address] Problems Unknown Problems Results No [...]
--- OUTSIDE RECORDS SUMMARY | 2025-04-06 15:00 | XMS_ITS | Encounter Summary ---
Author Organization [facility] Address [address] [facility] [place] [address] Phone Care Team Providers Care Cma Or Lpn Name Role Phone Sharon Moya MD Primary Care Provider [phone] Chapito Garcia MD Unavailable Radha Mac DPM Unavailable [phone] Reason for Visit * Reason Comments Medication Refill Encounter Details Date Type Department Care Team (Late st Contact Info) Description 12/29/2024 Refill [facility] #2 [place] [address] Boni Chavez, POLISHING MACHINE OPERATOR HELPER, POKER DEALER #2 [place] [address] Medication Refill Social History Tobacco Use Types Packs/Day Years Used Date Smoking Tobacco: Former Cigarettes 1 12 Smokeless Tobacco: Never Alcohol Use Standard Drinks/Week Comments No 0 (1 standard drink = 0.6 oz pur e alcohol) [facility] Utilities Answer Date Recorded In the past 12 months has [employer] electric, gas, oil, or water company threatened [...] declined 05/25/2024 How often do you attend sikh or druze serv ices? Patient declined 05/25/2024 Do you belong to any clubs o r organizations such as sikh groups, unions, fraternal or athletic groups, or [...] Score - Questions 1-9 0 /0 03/2022 [facility] - Occupational Stress [...] any time in the past 12 m [facility], were you homeless or living in a custodial (including now)? Patient declined 05/25/2024 Sexually Active Control Partners Comments Not Currently Comments No Sex and Gender Information Value Date Recorded Sex Assigned at Female 02/22/2023 8:54 AM CDT Legal Sex Female 7:09 PM CDT Gender Identity Female 02/22/2023 8:54 AM CDT Sexual Orientation Not on file documented as of this encounter Miscellaneous Notes * Telephone Encounter - Jenae Ocasio RN - 12/29/2024 9:21 AM CDT Refill denied - See Refusal reason documented in this encounter Plan of Treatment Upcoming Encounters Date Type Department Care Team (Late st Contact Info) Description 04/09/2025 10:30 AM CDT Home Care Visit [address] [address] Vi Conway, PT [place] 04/11/2025 2:00 AM CDT Home Care Visit [address] [address] Keyona Shen OTA [place] 04/11/2025 8:30 AM CDT Home Care Visit [address] [address] Alyson Crowder STILL CLEANER [place] 04/13/2025 1:00 AM CDT Appointment [address] [address] Nicolle Coates OT 04/17/2025 9:30 AM CDT [facility] [address] [place] [address] Karen Mcgarry, STILL CLEANER 04/19/2025 9:30 AM CDT [facility] [address] [place] [address] Karen Mcgarry, STILL CLEANER 04/23/2025 1:00 AM CDT [facility] [address] [place] [address] Karen Mcgarry, STILL CLEANER 04/25/2025 1:00 AM CDT Appointment [address] [address] Vi Conway, PT [place] 06/28/2025 9:00 AM SET UP MECHANIC AUTOMATIC LINE Office Visit [facility] [address]2 [place] [address] Chapito Garcia MD #[address] [address] documented as of this encounter Visit Diagnoses Not on filedocumented in this encounter Care Teams Cma Or Lpn Relationship Specialty Start Date End Date Sharon Moya MD [address] [place] [address] PCP - General Internal Medicine 09/16/21 Chapito Garcia MD #[address] [address] Consulting Physician Endocrinology 12/25/21 Radha Mac DPM #[address] [address] Consulting Physician Podiatry 05/26/22 documented as of this encounter
--- OUTSIDE RECORDS SUMMARY | 2025-04-06 15:00 | XMS_ITS | Encounter Summary ---
Author Organization [facility] Address [address] [facility] [place] [address] Phone Care Team Providers Care Senior Business Objects Developer Name Role Phone Sharon Moya MD Primary Care Provider [phone] Chapito Garcia MD Unavailable Radha Mac DPM Unavailable [phone] Reason for Visit * Reason Onset Date Comments Medication Management 04/05/2025 Encounter Details Date Type Department Care Team (Late st Contact Info) Description 04/05/2025 Telephone [facility] [address] [place] [address] Nicolle Coates, OT Medication Management Social History Tobacco Use Types Packs/Day Years Used Date Smoking Tobacco: Former Cigarettes 1 12 Smokeless Tobacco: Never Alcohol Use Standard Drinks/Week Comments No 0 (1 standard drink = 0.6 oz pur e alcohol) [facility] Utilities Answer Date Recorded In the past 12 months has [employer], gas, oil, or water [employer] threatened to shut off services in your home? Patient declined 05/25/2024 Social Connection and Isolation Panel Answer Date Recorded In a typical week, how many times do you talk on the phone with family, friends, or neighbors? Patient declined 05/25/2024 How often do you get togethe r with friends or relatives? Patient declined 05/25/2024 How often do you attend scientologist or alevism serv ices? Patient declined 05/25/2024 Do you [...] Total Score - Questions 1-9 0 03/2022 [facility] - Occupational Stress Questionnaire Answer Date Recorded [...] any time in the past 12 m [facility], were you homeless or living in a intermediate (including now)? Patient declined 05/25/2024 PRAPARE - [...] encounter Miscellaneous Notes * Telephone Encounter - Tonya Hyatt RN - 04/05/2025 7:54 PM CDT Copy of Home Care Medication Review faxed to Edwin Gupta MD. Fax delivery confirmation received at 1954. * Telephone Encounter - Nicolle Coates OT - 04/05/2025 2:24 PM CDT Clinical Support - please contact pt.'s arthritis Dr. Edwin Gupta [phone] and ask that ifthey discontinued sulfaSALAzine (AZULFIDINE) 500 MG Tablet Take 500 mg by mouth 2 times daily and update med list accordingly. Please review the above med discrepancies and respond by calling [facility] with orders at [facility] [phone] Option 4, or by fax at [facility] - [phone]. Radha Perry documented in this encounter Plan of Treatment Upcoming Encounters Date Type Department Care Team (Late st Contact Info) Description 04/09/2025 10:30 AM CDT [facility] Visit [facility] [address] [place] [address] Vi Conway, PT [place] 04/11/2025 2:00 AM CDT Home Care Visit [facility] [address] [address] Keyona Shen, SERVICE WRITER ADVISOR [place] 04/11/2025 8:30 AM CDT Home Care Visit [address] [address] Alyson Crowder, RETAIL EXPERIENCE SPECIALIST [place] 04/13/2025 1:00 AM CDT Appointment [address] [address] Nicolle Coates, OT 04/17/2025 9:30 AM CDT Home Care Visit [address] [address] Karen Mcgarry, RETAIL EXPERIENCE SPECIALIST 04/19/2025 9:30 AM CDT Home Care Visit [address] [address] Karen Mcgarry, RETAIL EXPERIENCE SPECIALIST 04/23/2025 1:00 AM CDT Home Care Visit [address] [address] Karen Mcgarry, RETAIL EXPERIENCE SPECIALIST 04/25/2025 1:00 AM CDT Appointment [address] [address] Vi Conway, PT [place] 06/28/2025 9:00 AM CLINICAL RECRUITER Office Visit [facility] [place] [address] Chapito Garcia MD #[address] [address] documented as of this encounter Visit Diagnoses Not on filedocumented in this encounter Care Teams Senior Business Objects Developer Relationship Specialty Start Date End Date Sharon Moya MD [address] [place] [address] PCP - General Internal Medicine 09/16/21 Chapito Garcia MD #[address] [address] Consulting Physician Endocrinology 12/25/21 Radha Mac DPM #[address] [address] Consulting Physician Podiatry 05/26/22 documented as of this encounter
--- OUTSIDE RECORDS SUMMARY | 2025-04-06 15:00 | XMS_ITS | Encounter Summary ---
Author Organization [facility] Address [address] [facility] [place] [address] Phone Care Team Providers Care Academic Computing Director Name Role Phone Sharon Moya MD Primary Care Provider [phone] Chapito Garcia MD Unavailable Radha Mac DPM Unavailable Encounter Details Date Type Department Care Team (Late st Contact Info) Description 05/30/2024 Nursing Facility [facility] [address] [place], [place] [address] [place] [address] Fiorella Horn, NOTE TELLER, CANDLEMAKING LABORER [address] [place] [address] Social History Tobacco Use Types Packs/Day Years Used Date Smoking Tobacco: Former Cigarettes 1 12 Smokeless Tobacco: Never Alcohol Use Standard Drinks/Week Comments No 0 (1 standard drink = 0.6 oz pur e alcohol) [facility] Utilities Answer Date Recorded In the past 12 months has [employer] electric, gas, oil, or water company threatened [...] How often do you attend confucianist or adventism serv ices? Patient declined 05/25/2024 Do you [...] - Questions 1-9 0 03/2022 [facility] - Occupational Stress Questionnaire [...] in the past 12 m [facility], were you homeless or living in [...] 04/09/2025 10:30 AM CDT Home Care Visit [address] [address] Vi Conway, PT [place] 04/11/2025 2:00 AM CDT Home Care Visit [address] [address] Keyona Shen, CIRCULAR STUFFER [place] 04/11/2025 8:30 AM CDT Home Care Visit [address] [address] Alyson Crowder, MOTOR COACH SUPERVISOR [place] 04/13/2025 1:00 AM CDT Appointment [address] [address] Nicolle Coates OT 04/17/2025 9:30 AM CDT Home Care Visit [address] [address] Karen Mcgarry, MOTOR COACH SUPERVISOR 04/19/2025 9:30 AM CDT Home Care Visit [address] [address] Karen Mcgarry, MOTOR COACH SUPERVISOR 04/23/2025 1:00 AM CDT [facility] [address] [place] [address] Karen Mcgarry, MOTOR COACH SUPERVISOR 04/25/2025 1:00 AM CDT [facility] [address] [place] [address] Vi Conway, PT [place] 06/28/2025 9:00 AM INFORMATION SYSTEMS SPECIALIST Office Visit [facility] [place] #2 [place] [address] Chapito Garcia MD #[address] [address] documented as of this encounter Visit Diagnoses Not on filedocumented in this encounter Care Teams Academic Computing Director Relationship Specialty Start Date End Date Sharon Moya MD [address] [place] [address] PCP - General Internal Medicine 09/16/21 Chapito Garcia MD #[address] [address] Consulting Physician Endocrinology 12/25/21 Radha Mac DPRahat #[address] [address] Consulting Physician Podiatry 05/26/22 documented as of this encounter
--- OUTSIDE RECORDS SUMMARY | 2025-04-06 15:00 | XMS_ITS | Encounter Summary ---
Author Organization [facility] Address [address] [place] [address] Phone Care Team Providers Care Sales Closer Name Role Phone Anthony Burks MD Primary Care Provider [phone] Gayle Garcia RN Unavailable Unavailable Sharon Moya MD Primary Care Provider [phone] Chapito Garcia MD Unavailable Radha Mac DPM Unavailable [phone] Encounter Details Date Type Department Care Team (Late st Contact Info) Description 07/30/[address] [facility] [address] [place] [phone] Anthony Burks MD [address] [place] [address] COVID-19 Social History Tobacco Use Types [...] COVID-19? No / Unsure 07/31/2021 11:08 AM ASSISTANT FINANCIAL ACCOUNTANT documented as of this encounter Plan of Treatment Upcoming Encounters Date Type Department Care Team (Late st Contact Info) Description 04/09/2025 10:30 AM CDT Home Care Visit [address] [address] Vi Conway, PT [place] 04/11/2025 2:00 AM CDT Home Care Visit [address] [address] Keyona Shen, [place] 04/11/2025 8:30 AM CDT Home Care Visit [address] [address] Alyson Crowder, STORAGE CONSULTANT [place] 04/13/2025 1:00 AM CDT Appointment [address] [address] Nicolle Coates, OT 04/17/2025 9:30 AM CDT Home Care Visit [address] [address] Karen Mcgarry, STORAGE CONSULTANT 04/19/2025 9:30 AM CDT Home Care Visit [address] [address] Karen Mcgarry, STORAGE CONSULTANT 04/23/2025 1:00 AM CDT Home Care Visit [address] [address] Karen Mcgarry, STORAGE CONSULTANT 04/25/2025 1:00 AM CDT Appointment [address] [address] Vi Conway, PT [place] 06/28/2025 9:00 AM ASSISTANT FINANCIAL ACCOUNTANT Office [facility] [place] [address] Chapito Garcia MD [address] [phone] documented as of this encounter Procedures Procedure Name Priority Date/Time Associated Diagnosis Comments SARS-COV-2 BY MOLECULAR Routine 07/28/2021 4:00 PM ASSISTANT FINANCIAL ACCOUNTANT COVID-19 documented in this encounter Results * SARS-COV-2 BY MOLECULAR (07/28/2021 4:00 PM ASSISTANT FINANCIAL ACCOUNTANT) SARSCOV2 NOT DETECTED (Referen ce Range for this test is Not Detected ) [facility] THERMOF[facility] FAST DX 07/31/2021 1:24 PM ASSISTANT FINANCIAL ACCOUNTANT [facility] Comment:This test was perfor med by a RT-PCR method. Other Non-Phlebotomy Collection / Unknown 07/28/2021 4:00 PM ASSISTANT FINANCIAL ACCOUNTANT 07/30/2021 8:28 AM ASSISTANT FINANCIAL ACCOUNTANT Narrative [facility] - 07/31/2021 1:24 PM ASSISTANT FINANCIAL ACCOUNTANT Authorized Fact Sheets about this test for providers and patients are available at: https://www.fda.gov/medical-devices/zaihgajlo-qhnitykymq-xmohaaf-devices/emergen cy-us e-authorizations us Anthony Burks MD MICROBIOLOGY - GENERAL ORDERAB LES Final Result [facility] [address] [place] [address], documented in this encounter Visit Diagnoses Diagnosis COVID-19 documented in this encounter Additional Health Concerns Infection Onset Date Last Indicated Resolved Time COVID - 19 07/21/2021 07/28/2021 08/17/2021 12:1 6 AM ASSISTANT FINANCIAL ACCOUNTANT COVID - 19 10/06/2021 10/06/2021 10/26/2021 12:1 6 AM CDT COVID - 19 06/27/2022 06/27/2022 07/07/2022 12:1 6 AM ASSISTANT FINANCIAL ACCOUNTANT Respiratory Rule-Out 06/27/2022 06/27/2022 023 12:16 AM ASSISTANT FINANCIAL ACCOUNTANT COVID - 19 04/12/2024 04/12/2024 04/12/2024 4:20 PM CDT COVID - 19 05/22/2024 05/22/2024 05/22/2024 1:03 PM ASSISTANT FINANCIAL ACCOUNTANT documented as of this encounter Care Teams Sales Closer Relationship Specialty Start Date End Date Anthony Burks MD [address] [facility] [address] [place] [address] PCP - General Internal Medicine 12/19/19 09/15/21 Sharon Moya MD [address] [facility] 8 [place], [place] [id number] PCP - General Internal Medicine 09/16/21 Gayle Garcia, RN [place] Film Writer 08/21/21 02/11/22 Chapito Garcia MD #[address] [phone] Consulting Physician Endocrinology 12/25/21 Radha Mac DPM #[address] [phone] Consulting Physician Podiatry 05/26/22 documented as of this encounter
--- OUTSIDE RECORDS SUMMARY | 2025-04-06 15:00 | XMS_ITS | Encounter Summary ---
Author Organization [facility] Address [address] [facility] [place] [address] Phone Care Team Providers Care Director Transportation Name Role Phone Sharon Moya MD Primary Care Provider [phone] Chapito Garcia MD Unavailable Radha Mac DPM Unavailable Encounter Details Date Type Department Care Team (Late st Contact Info) Description 06/15/2024 Nursing Facility [facility] [address] [place] [address] Fiorella Horn, ETHYLBENZENE CRACKING SUPERVISOR, PROFESSOR OF COMMUNICATION AND WRITING [address] [place] [address] Social History Tobacco Use Types Packs/Day Years Used Date Smoking Tobacco: Former Cigarettes 1 12 Smokeless Tobacco: Never Alcohol Use Standard Drinks/Week Comments No 0 (1 standard drink = 0.6 oz pur e alcohol) [facility] Utilities Answer Date Recorded In the past 12 months has [employer] electric, gas, oil, or water company threatened [...] declined 05/25/2024 How often do you attend jewish or presybeterian serv ices? Patient declined 05/25/2024 Do you belong to any clubs o r organizations such as jewish groups, unions, fraternal or athletic groups, or [...] Questions 1-9 0 03/2022 [facility] - Occupational Stress Questionnaire Answer Date [...] the past 12 m [facility], were you homeless or living in a [...] 04/09/2025 10:30 AM CDT Home Care Visit [address] [address] Vi Conway, PT [place] 04/11/2025 2:00 AM CDT Home Care Visit [address] [address] Keyona Shen, LOUVER DOOR ASSEMBLER [place] 04/11/2025 8:30 AM CDT Home Care Visit [address] [address] Alyson Crowder, VETERINARIAN SMALL ANIMAL [place] 04/13/2025 1:00 AM CDT Appointment [address] [address] Nicolle Coates OT 04/17/2025 9:30 AM CDT Home Care Visit [address] [address] Karen Mcgarry, VETERINARIAN SMALL ANIMAL 04/19/2025 9:30 AM CDT Home Care Visit [address] [address] Karen Mcgarry, VETERINARIAN SMALL ANIMAL 04/23/2025 1:00 AM CDT [facility] [address] [place] [address] Karen Mcgarry, VETERINARIAN SMALL ANIMAL 04/25/2025 1:00 AM CDT [facility]ment [facility] [address] [place] [address] Vi Conway, PT [place] 06/28/2025 9:00 AM VB NET DEVELOPER Office Visit [facility] [place] #2 [place] [address] Chapito Garcia MD #[address] [address] documented as of this encounter Visit Diagnoses Not on filedocumented in this encounter Care Teams Director Transportation Relationship Specialty Start Date End Date Sharon Moya MD [address] [place] [address] PCP - General Internal Medicine 09/16/21 Chapito Garcia MD #[address] [phone] Consulting Physician Endocrinology 12/25/21 Radha Mac DPRahat #[address] [address] Consulting Physician Podiatry 05/26/22 documented as of this encounter
--- OUTSIDE RECORDS SUMMARY | 2025-04-06 15:00 | XMS_ITS | Encounter Summary ---
Author Organization [facility] Address [facility] [place] [address] Phone Care Team Providers Care Launchman Name Role Phone Sharon Moya MD Primary Care Provider [phone] Chapito Garcia MD Unavailable Radha Mac DPM Unavailable [phone] Reason for Visit * Reason Comments Medication Refill Encounter Details Date Type Department Care Team (Late st Contact Info) Description 12/26/2024 Refill [facility] #2 [place] [address] Boni Chavez, POULTRY FEED SUPERVISOR, HEALTH ASSOCIATE #2 [place] [address] Medication Refill Social History Tobacco Use Types Packs/Day Years Used Date Smoking Tobacco: Former Cigarettes 1 12 Smokeless Tobacco: Never Alcohol Use Standard Drinks/Week Comments No 0 (1 standard drink = 0.6 oz pur e alcohol) [facility] Utilities Answer Date Recorded In the past 12 months has [employer] electric, gas, oil, or water company threatened [...] declined 05/25/2024 How often do you attend roman catholic or nondenominational serv ices? Patient declined 05/25/2024 [...] Score - Questions 1-9 0 /0 03/2022 [facility] ional [facility] - Occupational [...] were you homeless or living in a group home (including now)? Patient declined 05/25/2024 Sexually [...] 04/09/2025 10:30 AM CDT Home Care Visit [address] [address] Vi Conway, PT [place] 04/11/2025 2:00 AM CDT Home Care Visit [address] [address] Keyona Shen OTA [place] 04/11/2025 8:30 AM CDT Home Care Visit [address] [address] Alyson Crowder AUCTION CLERK [place] 04/13/2025 1:00 AM CDT Appointment [address] [address] Nicolle Coates OT 04/17/2025 9:30 AM CDT [facility] [address] [place] [address] Karen Mcgarry, AUCTION CLERK 04/19/2025 9:30 AM CDT [facility] [address] [place] [address] Karen Mcgarry, AUCTION CLERK 04/23/2025 1:00 AM CDT [facility] [address] [place] [address] Karen Mcgarry, AUCTION CLERK 04/25/2025 1:00 AM CDT Appointment [address] [address] Vi Conway, PT [place] 06/28/2025 9:00 AM WOOD STOCK BLANK HANDLER [facility] Visit [facility] #2 [place] [address] Chapito Garcia MD #[address] [address] documented as of this encounter Visit Diagnoses Not on filedocumented in this encounter Care Teams Launchman Relationship Specialty Start Date End Date Sharon Moya MD [address] [facility] 8 [place] [address] PCP - General Internal Medicine 09/16/21 Chapito Garcia MD #[address] [address] Consulting Physician Endocrinology 12/25/21 Radha Mac DPM #[address] [address] Consulting Physician Podiatry 05/26/22 documented as of this encounter
--- OUTSIDE RECORDS SUMMARY | 2025-04-06 15:00 | XMS_ITS | Encounter Summary ---
Author Organization [facility] Address [address] [facility] [place] [address] Phone Care Team Providers Care Facility Examiner Name Role Phone Sharon Moya MD Primary Care Provider [phone] Chapito Garcia MD Unavailable Radha Mac DPM Unavailable [phone] Encounter Details Date Type Department Care Team (Late st Contact Info) Description 07/18/2024 Nursing Facility [facility] [address] [place] [address] Fiorella Horn, MERCURY CRACKING TESTER, LANGUAGE TUTOR [address] [place] [address] Social History Tobacco Use Types Packs/Day Years Used Date Smoking Tobacco: Former Cigarettes 1 12 Smokeless Tobacco: Never Alcohol Use Standard Drinks/Week Comments No 0 (1 standard drink = 0.6 oz pur e alcohol) [facility] Utilities Answer Date Recorded In the past 12 months has [employer] electric, gas, oil, or water company threatened [...] How often do you attend sikh or restoration serv ices? Patient declined 05/25/2024 Do you [...] Questions 1-9 0 03/2022 [facility] - Occupational Stress Questionnaire Answer Date [...] any time in the past 12 m [facility], were you homeless or living in a prison (including now)? Patient declined 05/25/2024 Sexually Active [...] 04/09/2025 10:30 AM CDT Home Care Visit [address] [address] Vi Conway, PT [place] 04/11/2025 2:00 AM CDT Home Care Visit [address] [address] Keyona Shen, CLAY WORKER [place] 04/11/2025 8:30 AM CDT Home Care Visit [address] [address] Alyson Crowder, BOWLING BALL MARKER [place] 04/13/2025 1:00 AM CDT Appointment [address] [address] Nicolle Coates OT 04/17/2025 9:30 AM CDT Home Care Visit [address] [address] Karen Mcgarry, BOWLING BALL MARKER 04/19/2025 9:30 AM CDT Home Care Visit [address] [address] Karen Mcgarry, BOWLING BALL MARKER 04/23/2025 1:00 AM CDT [facility] [address] [place] [address] Karen Mcgarry, BOWLING BALL MARKER 04/25/2025 1:00 AM CDT [facility] [address] [place] [address] Vi Conway, PT [place] 06/28/2025 9:00 AM VEGETABLE CUTTER Office Visit [facility] - [place] #2 [place] [address] Chapito Garcia MD #[address] [address] documented as of this encounter Visit Diagnoses Not on filedocumented in this encounter Care Teams Facility Examiner Relationship Specialty Start Date End Date Sharon Moya MD [address] [place] [address] PCP - General Internal Medicine 09/16/21 Chapito Garcia MD #[address] [address] Consulting Physician Endocrinology 12/25/21 Radha Mac DPRahat #[address] [address] Consulting Physician Podiatry 05/26/22 documented as of this encounter
--- OUTSIDE RECORDS SUMMARY | 2025-04-06 15:00 | XMS_ITS | Encounter Summary ---
Author Organization [facility] Address [address] [facility] [place] [address] Phone Care Team Providers Care Forest Resource Specialist Name Role Phone Sharon Moya MD Primary Care Provider Chapito Garcia MD Unavailable Radha Mac DPM Unavailable Encounter Details Date Type Department Care Team (Late st Contact Info) Description 06/12/2024 Nursing Facility [facility] [address] [place], [place] [address] [place] [address] Fiorella Horn, VICE PRESIDENT RESEARCH, ELECTRICAL AND RADIO MOCK UP MECHANIC [address] [place] [address] Social History Tobacco Use Types Packs/Day Years Used Date Smoking Tobacco: Former Cigarettes 1 12 Smokeless Tobacco: Never Alcohol Use Standard Drinks/Week Comments No 0 (1 standard drink = 0.6 oz pur e alcohol) [facility] Utilities Answer Date Recorded In the past 12 months has [employer] electric, gas, oil, or water company threatened [...] declined 05/25/2024 How often do you attend worship or pentecostal serv ices? Patient declined 05/25/2024 Do you belong to any clubs o r organizations such as worship groups, unions, fraternal or athletic groups, or [...] Total Score - Questions 1-9 0 03/[facility]22 [facility] - Occupational Stress Questionnaire Answer Date Recorded [...] any time in the past 12 m [facility], were you homeless or [...] 04/09/2025 10:30 AM CDT Home Care Visit [address] [address] Vi Conway, PT MD 04/11/2025 2:00 AM CDT Home Care Visit [address] [address] Keyona Shen, HULL OUTFIT SUPERVISOR [place] 04/11/2025 8:30 AM CDT Home Care Visit [address] [address] Alyson Crowder, COOK FROZEN [place] 04/13/2025 1:00 AM CDT Appointment [address] [address] Nicolle Coates OT 04/17/2025 9:30 AM CDT Home Care Visit [address] [address] Karen Mcgarry, COOK FROZEN DESSERT 04/19/2025 9:30 AM CDT Home Care Visit [address] [address] Karen Mcgarry, COOK FROZEN DESSERT 04/23/2025 1:00 AM CDT [facility] [address] [place] [address] Karen Mcgarry, COOK FROZEN DESSERT 04/25/2025 1:00 AM CDT [facility] [address] [place] [address] Vi Conway, [place] 06/28/2025 9:00 AM CONSTRUCTION EQUIPMENT TECHNICIAN [facility] - [place] [address] [place] [address] Chapito Garcia MD [address] [address] documented as of this encounter Visit Diagnoses Not on filedocumented in this encounter Care Teams Forest Resource Specialist Relationship Specialty Start Date End Date Sharon Moya MD [address] [place] [address] PCP - General Internal Medicine 09/16/21 Chapito Garcia MD #[address] [phone] Consulting Physician Endocrinology 12/25/21 Radha Mac DPRahat #[address] [phone] Consulting Physician Podiatry 05/26/22 documented as of this encounter
--- OUTSIDE RECORDS SUMMARY | 2025-04-06 15:00 | XMS_ITS | Encounter Summary ---
Author Organization [facility] Address [address] [place] [address] Phone Care Team Providers Care Planning Management It Specialist Name Role Phone Sharon Moya MD Primary Care Provider [phone] Chapito Garcia MD Unavailable Radha Mac DPM Unavailable [phone] Reason for Visit * Reason Onset Date Comments Symptom Management 04/06/2025 Urinary Symptoms. 04/06/2025 Encounter Details Date Type Department Care Team (Late st Contact Info) Description [facility]/06/20[facility] [address] [place] [address] Carlene Sena, RN [place] Symptom Management; Urinary Symptoms. Social History Tobacco Use Types Packs/Day Years Used Date Smoking Tobacco: Former Cigarettes 1 12 Smokeless Tobacco: Never Alcohol Use Standard Drinks/Week Comments No 0 (1 standard drink = 0.6 oz pur e alcohol) [facility] Utilities Answer Date Recorded In the past 12 months has [employer], gas, oil, or water Identify threatened to shut off services in your home? Patient declined 05/25/2024 Social Connection and Isolation Panel Answer Date Recorded In a typical week, how many times do you talk on the phone with family, friends, or neighbors? Patient declined 05/25/2024 How often do you get togethe r with friends or relatives? Patient declined 05/25/2024 How often do you attend bahai or confucianist serv ices? Patient declined 05/25/2024 Do you [...] Score - Questions 1-9 0 0 03/2022 [facility]at ional [facility] - Occupational Stress Questionnaire Answer Date [...] were you homeless or living in a mcfp (including now)? Patient declined 05/25/2024 PRAPARE - [...] encounter Miscellaneous Notes * Telephone Encounter - Carlene Sena RN - 04/06/2025 2:03 PM CDT Clinical Support: Please follow up with Pt. Aline to see if Pt. went to walk in and if antibioticwas ordered, and how she is feeling. SITUATION: Pain and burning with urination Pt. Will go to walk in clinic to get checked for UTI. BACKGROUND: Essential Primary Hypertension. See care advice and disposition for Guideline. ASSESSMENT & RECOMMENDATION:Call from OT in the home Radha who reports Pt. States that she gets frequent UTI's, and is having symptoms at this time. and when OT leaves she plans to have someone take her to the Emergency Room. Pt. Reports burning with urination, foul odor with urine and back pain which is typical for her when she gets UTI. Temp 97.3 02 96 HR 66 BP140/70. No chills, Shivers or body aches at this time. Radha has tried to call PCP to get orders for UA or recommendations there are No providers in office today. Industrial Production Manager advised that Pt. Go to Walk in clinic for treatment rather then ER. Pt. Is agreeable with that and will have someone bring her to walk in clinic. Caller agreeable. First positive answer recorded, all responses to prior questions were negative. If symptoms increase, change or if new symptoms develop, call your HCP or call back. Recommendations were based on caller information and is not a diagnosis. Verified and reviewed all triage information with caller. Teach-back method utilized. Please reply to the following Home Care Pool with further orders or responses: [facility] [place] documented in this encounter Plan of Treatment Upcoming Encounters Date Type Department Care Team (Late st Contact Info) Description 04/09/2025 10:30 AM CDT Home Care Visit [address] [address] Vi Conway, PT [place] 04/11/2025 2:00 AM CDT Home Care Visit [address] [address] Keyona Shen, [place] 04/11/2025 8:30 AM CDT Home Care Visit [address] [address] Alyson Crowder, INK PRINTER [place] 04/13/2025 1:00 AM CDT Appointment [address] [address] Nicolle Coates, OT 04/17/2025 9:30 AM CDT Home Care Visit [address] [address] Karen Mcgarry, INK PRINTER 04/19/2025 9:30 AM CDT Home Care Visit [address] [address] Karen Mcgarry, INK PRINTER 04/23/2025 1:00 AM CDT Home Care Visit [address] [address] Karen Mcgarry, INK PRINTER 04/25/2025 1:00 AM CDT Appointment [address] [address] Vi Conway, PT [place] 06/28/2025 9:00 AM RAILROAD DESIGN CONSULTANT Office Visit [facility] - Endocrinology - [place] [address] [place] [address] Chapito Garcia MD [address] [phone] documented as of this encounter Visit Diagnoses Not on filedocumented in this encounter Care Teams Planning Management It Specialist Relationship Specialty Start Date End Date Sharon Moya MD [address] [place], [place] [id number] PCP - General Internal Medicine 09/16/21 Chapito Garcia MD #[address] [address] Consulting Physician Endocrinology 12/25/21 Radha Mac DPM #[address] [phone] Consulting Physician Podiatry 05/26/22 documented as of this encounter
--- OUTSIDE RECORDS SUMMARY | 2025-04-06 15:00 | XMS_ITS | Encounter Summary ---
Author Organization [facility] Address [address] [facility] [place] [address] Phone Care Team Providers Care Plastics Supervisor Name Role Phone Sharon Moya MD Primary Care Provider [phone] Chapito Garcia MD Unavailable Radha Mac DPM Unavailable Encounter Details Date Type Department Care Team (Late st Contact Info) Description 06/05/2024 Nursing Facility [facility] [address] [place] [phone] Tex Vargas, [facility] [address] [place], [place] [id number] Social History Tobacco Use Types Packs/Day Years Used Date Smoking Tobacco: Former Cigarettes 1 12 Smokeless Tobacco: Never Alcohol Use Standard Drinks/Week Comments No 0 (1 standard drink = 0.6 oz pur e alcohol) [facility] Utilities Answer Date Recorded In the past 12 months has [employer] electric, gas, oil, or water [employer] threatened to shut off services in your home? Patient declined 05/25/2024 Social Connection and Isolation Panel Answer Date Recorded In a typical week, how many times do you talk on the phone with family, friends, or neighbors? Patient declined 05/25/2024 How often do you get togethe r with friends or relatives? Patient declined 05/25/2024 How often do you attend caodaism or protestant serv ices? Patient declined 05/25/2024 Do you belong to any clubs o r organizations such as caodaism groups, unions, fraternal or athletic groups, or [...] Total Score - Questions 1-9 0 03/2022 [facility] Occupat ional [facility] - Occupational Stress Questionnaire Answer [...] any time in the past 12 m [facility], were you homeless or living in a [...] Vargas, PAC - 06/05/2024 11:59 PM CST [facility] PROGRESS NOTE Khadra Beltran is a 64 y.o. female at [facility] for rehabilitation. Pt is s/p recent hospitalization from 05/25-05/29/2024 for PNA and UTI and suspected new SDH. Pt was initially sent to [facility] ED for evaluation of poss new Subdural hematoma noted onCTH, after a suspected fall from her wheelchair. She then transferred to higher level of care to [facility] and was seen by neurosurgery at [facility] and deemed to have a chronic SDH. During her hospitalization, she was found to have Community acquired PNA and Urine culture grew Enterococcus organism. Pt was transferred back to [facility] for treatment of her infection. Was seen in consultation by IRINA-Dr. Awad and deemed to have asymptomatic Bacteriauria and no infection in lungs either. Her antibiotics were stopped and pt was discharged back to [facility]. Subjective: Interval History: I am seeing this [...] and moist, no lesion or exudate. - CABAZON. Neck: Supple. No JVD, lymphadenopathy thyromegaly or [...] limits Imaging: CTH showed chronic SDH and TAX ACCOUNTANT shunt intact. Assessment/Plan: Physical Deconditioning Resume therapy [...] UTI clinically Idiopathetic Normal Pressure Hydrocephalus with TAX ACCOUNTANT shunt Chronic SDH Seen by neurosurgery at [facility] and deemed to have chronic Subdural hematomas Monitor neuro checks DM type 2 Continue Lantus, Ozempic and sliding scale Monitor blood sugats COPD Not in exacerbation, continue inhalers Anxiety/depression/Bipolar Continue Risperidone and Depakote HTN/HLD Bp stable, continue statin and Norvasc VTE Prophylaxis: activity By: CASPER Velázquez 06/05/24 C ORCHESTRATOR documented in this encounter Plan of Treatment Upcoming Encounters Date Type Department Care Team (Late st Contact Info) Description 04/09/2025 10:30 AM CDT Home Care Visit [address] [address] Vi Conway, PT [place] 04/11/2025 2:00 AM CDT Home Care Visit [address] [address] Keyona Shen, ELECTRIC SHOVEL OPERATOR [place] 04/11/2025 8:30 AM CDT Home Care Visit [address] [address] Alyson Crowder, SIDE PANEL PADDER [place] 04/13/2025 1:00 AM CDT Appointment [address] [address] Nicolle Coates, OT 04/17/2025 9:30 AM CDT Home Care Visit [address] [address] Karen Mcgarry, SIDE PANEL PADDER 04/19/2025 9:30 AM CDT Home Care Visit [address] [address] Karen Mcgarry, SIDE PANEL PADDER 04/23/2025 1:00 AM CDT Home Care Visit [address] [address] Karen Mcgarry, SIDE PANEL PADDER 04/25/2025 1:00 AM CDT Appointment [address] [address] Vi Conway, PT [place] 06/28/2025 9:00 AM MUSIC ORCHESTRATOR [facility] - [place] [address] [place] [phone] Chapito Garcia MD [address] [phone] documented as of this encounter Visit Diagnoses Not on filedocumented in this encounter Care Teams Plastics Supervisor Relationship Specialty Start Date End Date Sharon Moya MD [address] [place] [address] PCP - General Internal Medicine 09/16/21 Chapito Garcia MD #[address] [address] Consulting Physician Endocrinology 12/25/21 Radha Mac DPM #[address] [address] Consulting Physician Podiatry 05/26/22 documented as of this encounter
--- OUTSIDE RECORDS SUMMARY | 2025-04-06 15:00 | XMS_ITS | Clinical Summary ---
Author Organization [facility] Address [address] [place] [address] Care Team Providers Care Prosthodontist/Owner Name Role Phone Sharon Moya MD Primary Care Provider [phone] Source Comments [facility],non-owned Affiliates and Associated Physician Practices is amultiple site organization consisting of ambulatory clinics and hospital sitesin [place], [place], [place] and [place]. This disclosure is being madepursuant to the Care Everywhere program and may not contain all information available regarding this patient. Last updated 18.[facility] Allergies Active Allergy Reactions Criticality Noted Date [...] fluticasone propionate (Flonase) 50 MCG/ACT nasal spray Elbert 2 (two) sprays into each nostril once daily 08/15/19 24 Active Trelegy Ellipta 100-62.5-25 MCG/ACT Inhale 1 (one) puff by mouth once daily 09/07/19 24 Active OneTouch Verio test strip 4 TIMES A DAY Activ e hydrOXYzine HCl (Atarax) 25 MG tablet 1 tablet as needed Orally at night for 30 days Active BD Pen Needle Akanksha 2nd Gen 32G X 4 MM MUSCOGEE USE 1 PEN NEEDLE TO INJECT INSULIN [...] hours 05/26/20 Active sulfaSALAzine (Azulfidine) 500 MG tabletIndicatio ns: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) TAKE 1 TABLET BY MOUTH TWICE DAILY 180 tablet 02/23/20 Active Active Problems Problem Noted Date Diagnosed [...] Normal pressure hydrocephalus 05/23/2024 Hydrocephalus managed with HAND UMBRELLA TIPPER shunt 05/23/2024 Overview (05/23/2024): Inserted 2014 Essential hypertension 05/23/2024 Bipolar 1 disorder 05/23/2024 Seizures 05/23/2024 Insomnia 05/23/2024 Chronic obstructive pulmonar y disease with acute lower respiratory infection 05/23/2024 Asthma 05/23/2024 Anxiety 05/23/2024 Sleep apnea 05/23/2024 BMI 30.0-30.9,adult 05/23/2024 Osteoporosis 05/23/2024 Vitamin D deficiency 05/23/2024 Leukocytosis 05/23/2024 Encounters Date Type Department Care Team Description 02/21/2025 Refill [facility] - Rheumatology [address] [place] [address] Aracely Gil MD Refill Request 01/18/2025 Telephone [facility] Rheumatology [address] [place] [phone] Aracely Gil MD Appointment from Last 3 Months Social History Tobacco [...] on file Legal Sex Female 9:33 AM RECEPTIONIST SECRETARY Gender Identity Not on file Sexual Orientation Not on file Last Filed Vital Signs Vital Sign Reading Time Taken Comments Blood Pressure 132/61 05/25/2024 9:05 PM RECEPTIONIST SECRETARY Pulse 78 05/25/2024 9:05 PM RECEPTIONIST SECRETARY Temperature 36.6 C (97.9 F) 05/25/2024 7:47 AM RECEPTIONIST SECRETARY Respiratory Rate 16 05/25/2024 9:05 PM RECEPTIONIST SECRETARY Oxygen Saturation 96% 05/25/2024 9:05 PM RECEPTIONIST SECRETARY Inhaled Oxygen Concentration - - Weight 93.4 kg (206 lb) 05/22/2024 9:15 PM RECEPTIONIST SECRETARY Height 175.3 cm (5' 9) 05/22/2024 9:15 PM RECEPTIONIST SECRETARY Body Mass Index 30.42 05/22/2024 9:15 PM RECEPTIONIST SECRETARY Plan of Treatment Health Maintenance Due Date Last Done Comments COLOGUARD (AGES 45-75) - COLON CA SCREENING 1959 COLON MONITORING 1959 COLONOSCOPY - COLON CA SCREENING 1959 CT COLONOGRAPHY - COLON CA SCREENING 1959 Colorectal Cancer Screening 1959 FIT - COLON CA SCREENING 1959 FLEX SIG - COLON CA SCREENING 1959 DTAP/TDAP/TD VACCINES (1 - Tdap) 1978 PNEUMOCOCCAL VACCINE 50+ (1 of 2 - PCV) 1978 ZOSTER VACCINE (1 of 2) 2009 Respiratory Syncytial Virus (RSV) Vaccine Pt: or over 60 yrs (1 - Risk 60-74 years 1-dose series) 2019 DIABETES-FOOT EXAM WITH MONOFILAMENT 05/23/2024 DIABETES - URINE PROTEIN SCREENING 07/12/2024 MEDICARE AWV CALENDAR YEAR 2024 COVID-19 VACCINE (2024- season) 2025 10/25/2023, 10/30/2022, 09/09/2022, Additional history exists INFLUENZA VACCINE (#1) 2025 , 06/25/2023, 03/06/2022, Additional history exists DIABETES-HGB A1C 06/22/2025 12/21/2024, 09/2024, 05/23/2024, Additional history exists DIABETES-SERUM CREATININE 02/15/20262024, 02/15/2025, 05/25/2024, Additional history exists DIABETES RETINOPATHY SCREENING 08/14/2026 08/14/2024 MAMMOGRAM 01/15/2027 01/15/2025, 07/0 01/2025, 12/10/2023, Additional history exists HEPATITIS C SCREENING Completed 07/23/2023, 024 BONE DENSITY TESTING Completed 11/03/2023 HEPATITIS B VACCINE Aged Out No longe [...] FUNCTION PANEL AM Draw 05/25/2024 5:50 AM RECEPTIONIST SECRETARY Weakness generalized Fever, unspecified fever cause Urinary tract infection without hematuria, site unspecified HEMOGLOBIN A1C DESMOND 05/23/2024 7:12 AM RECEPTIONIST SECRETARY from Last 3 Months or Most Recently Relevant to Health Maintenance Results * EYE EXAM (08/14/2024) Anatomical Region Laterality Modality Other 08/14/2024 Narrative 08/14/2024 Ordered by an unspecified provider. us Scanned Document SCANNING ONLY Final Result * (ABNORMAL) RENAL FUNCTION PANEL (05/25/2024 5:50 AM RECEPTIONIST SECRETARY) BUN 37(H) 7 - 26 mg/dL 05/25/2024 7:00 AM [facility] Creatinine 1.58(H) 0.56 - 0.96 mg/dL 05/25/2024 7:00 AM [facility] Sodium 139 136 - 145 mmol/L 05/25/2024 7:00 AM [facility] Potassium 4.3 3.5 - 4.5 mmol/L 05/25/2024 7:00 AM [facility] Chloride 104 98 - 107 mmol/L 05/25/2024 7:00 AM [facility] CO2 25 22 - 29 mmol/L 05/25/2024 7:00 AM [facility] Glucose 292(H) 70 - 99 mg/dL 05/25/2024 7:00 AM [facility] Albumin 2.3(L) 3.4 - 5.0 g/dL 05/25/2024 7:00 AM [facility] Calcium 8.9 8.4 - 10.2 mg/dL 05/25/2024 7:00 AM [facility] Phosphorus 4.2 2.9 - 5.1 mg/dL 05/25/2024 7:00 AM [facility] Anion Gap 10 6 - 16 05/25/2024 7:00 AM [facility] BUN/Creatinine Ratio 23 7 - 23 05/25/2024 7:00 AM [facility] Osmolality Calculated 307(H) 275 - 295 mOsm/kg 05/25/2024 7:00 AM [facility] eGFR by CKD-EPI 36(L) >=90 mL/min/1.7 3 m2 05/25/2024 7:00 AM [facility] Blood BLOOD SPECIMEN / Unknown Lab Venipuncture / Unknown 05/25/2024 5:50 AM RECEPTIONIST SECRETARY 05/25/2024 6:32 AM RECEPTIONIST SECRETARY Earnest Grubbs FLIGHT ATTENDANT-DIRECT MARKETING INTERN LAB - CHEMISTRY ORDERABL ES Final Result Performing Organization Address City/[facility]/ZIP Co de Phone Number [facility] [address] [place] [address], [facility] [phone] * (ABNORMAL) HEMOGLOBIN A1C (05/23/2024 7:12 AM [facility]) Hemoglobin A1c 7.6(H) <=5.6 % 05/23/2024 12:38 PM [facility] Estimated Average Glucose 171 mg/dL 05/23/2024 12:38 PM [facility] Comment: HbA1c Interpretation: Normal : < 5.7% Pre-diabetes: 5.7-6.4% Diabetes: Equal to or greater than 6.5% Test results diagnostic of diabetes should be repeated for confirmation. Treatment target values recommended by ADA and other clinical organizations should be used to evaluate metabolic control in patients. Reference: [place] [employer], Standards of Care in Diabetes -2020 In patients 70 years and older consider HbA1c target range of 7.0-7.5% (Reference: Lawrence Gray et al. JAMDA. 2012) The Sebia assay for the measurement of HbA1c is a National Glycohemoglobin Standardization Program (NGSP) certified method. Blood BLOOD SPECIMEN / Unknown Venipuncture / Unknown 05/23/2024 7:12 AM RECEPTIONIST SECRETARY 05/23/2024 8:05 AM RECEPTIONIST SECRETARY us Gabino Perez MD LAB - CHEMISTRY ORDERABLES Fin al Result [facility] [address] [place] [address], [facility] [phone] from Last 3 Months or Most Recently Relevant to Health Maintenance Insurance MEDICARE MEDICAID - OUT OF STATE MEDICARE UHC MANAGED MEDICARE ADV Advance Directives * Full Code (Latest Code Status on File) Date Activated Date Inactivated Comments 05/23/2024 10:57 AM 05/25/2024 10:23 PM Care Teams Prosthodontist/Owner Relationship Specialty Start Date End Date Sharon Moya MD [address] [place] [id number] PCP - General Internal Medicine 08/05/23
--- OUTSIDE RECORDS SUMMARY | 2025-04-06 15:00 | XMS_ITS | Clinical Summary ---
Author Organization [facility] [employer] [facility] Address [address] [place] [address] [place] [phone] Phone Care Team Providers Care Scooping Machine Tender Name Role Phone Sharon Moya MD Primary Care Provider [phone] Medications albuterol (2.5 MG/3ML) 0.083% nebulizer solution every 6 hours 0 Active alendronate (FOSAMAX) 70 MG tablet Take 70 mg by mouth 1 (one) time per week Active amLODIPine (NORVASC) 5 MG tablet Take 5 mg by mouth in the morning. 1 Active aspirin 81 MG chewable tablet CHEW 1 TABLET(S) EVERY DAY BY ORAL ROUTE AFTER MEALS FOR 30 DAYS. Active atorvastatin (LIPITOR) 20 MG tablet Take 20 mg by mouth 1 (one) time each day Active busPIRone (BUSPAR) 15 MG tablet Take 15 mg by mouth in the morning and 15 mg at noon and 15 mg in the evening. Active cephalexin (KEFLEX) 500 MG capsule TAKE 1 CAPSULE BY MOUTH FOUR TIMES DAILY FOR 7 DAYS Active citalopram (CeleXA) 20 MG tablet Take 20 mg by mouth 1 (one) time each day Active Restasis 0.05 % ophthalmic emulsion instill 1 drop in each eye twice daily Active divalproex (DEPAKOTE) 500 MG EC tablet Take 1,000 mg by mouth in the morning and 1,000 mg in the evening. Active famotidine (PEPCID) 40 MG tablet Take 40 mg by mouth 1 (one) time each day 1 Active fluticasone (FLONASE) 50 MCG/ACT nasal spray INSTILL 2 SPRAY INTO EACH NOSTRIL ONCE DAILY NEEDED *NEW PRESCRIPTION REQUEST* 7 Active Trelegy Ellipta 100-62.5-25 MCG/ACT aerosol powder inhale 1 puff by mouth daily Active furosemide (LASIX) 40 MG tablet Take 40 mg by mouth in the morning and 40 mg in the evening. 2 Active hydrOXYzine (ATARAX) 25 MG tablet Take 25 mg by mouth at night if needed Active Insulin Lispro, 1 Unit Dial, 100 UNIT/ML solution pen-injector INJECT 14-10-14 UNITS SUBCUTANEOUSLY BEFORE EACH MEAL + CORRECTIONAL FACTOR INSULIN (MAX 50 UNITS PER DAY) 1 Active Embecta Pen Needle Akanksha 2 Gen 32G X 4 MM misc USE 1 PEN NEEDLE FOUR TIMES A DAY.USE TO INJECT INSULIN FOUR TIMES A DAY Active levothyroxine (SYNTHROID, LEVOTHROID) 150 MCG tablet Take 150 mcg by mouth in the morning. 1 Active risperiDONE (RisperDAL) 0.5 MG tablet Take 0.5 mg by mouth every night Active primidone (MYSOLINE) 50 MG tablet TAKE ONE (1) TABLET BY MOUTH TWICE DAILY 5 Active Ozempic, 1 MG/DOSE, 4 MG/3ML solution pen-injector INJECT 1 MG SUBCUTANEOUSLY ONE TIME PER WEEK 4 Active tamsulosin (FLOMAX) 0.4 MG 24 hr capsule Take 0.4 mg by mouth in the morning and 0.4 mg in the evening. Active trimethoprim (TRIMPEX) 100 MG tablet Take 100 mg by mouth 1 (one) time each day Active Encounters Date Type Department Care Team Description 02/27/2025 Office Communication [facility], [address] [address] Gio Garces MD from Last 3 Months Social History Tobacco Use Types Packs/Day Years Used Date Smoking Tobacco: Never Assessed Comments Unknown Sex and Gender Information Value Date Recorded Sex Assigned at Not on file Legal Sex Female 12:09 PM EDT Gender Identity Not on file Sexual Orientation Not on file Plan of Treatment Health Maintenance Due Date Last Done Comments Breast Cancer Screening 1960 Colorectal Cancer Screening: Annual FOBT 2008 Colorectal Cancer Screening: Colonoscopy 2008 Colorectal Cancer Screening: Sigmoidoscopy 2008 Diabetes: Ophthalmology Exam 11/24/2024 Diabetes: Pedal Pulse Checked 11/24/2024 Diabetes: Sensory Foot Exam 11/24/2024 Diabetes: Visual Foot Exam 11/24/2024 Influenza Vaccine (#1) 2025 , 06/25/2023, 03/06/2022, Additional history exists Diabetes: Hemoglobin A1C 03/23/2025 025, 09/11/2024, 05/23/2024, Additional history exists Pneumococcal Vaccine: 50+ Years (4 of 4 - PCV20 or PCV21) 02/13/2026 02/13/2021, 08/25/2016, 07/12/1999, Additional history exists Hepatitis B Vaccine Aged Out No longe r eligible based on patient's age to complete this topic Insurance Dr [address] [place] [address] UHC Medicare Medicaid [place] Care Teams Scooping Machine Tender Relationship Specialty Start Date End Date Sharon Moya MD [address] [place] [address] [place] [phone] PCP - General Internal Medicine 11/24/24
--- OUTSIDE RECORDS SUMMARY | 2025-04-06 15:00 | XMS_ITS | Encounter Summary ---
Author Organization [facility] Address [address] [facility] [place] [address] Phone Care Team Providers Care Cook Boat Name Role Phone Sharon Moya MD Primary Care Provider [phone] Chapito Garcia MD Unavailable Radha Mac DPM Unavailable [phone] Encounter Details Date Type Department Care Team (Late st Contact Info) Description 07/18/2024 Nursing Facility [facility] [address] [address] Fiorella Horn, INFORMATION SYSTEMS AUDITOR, ADDICTION SOCIAL WORKER [address] [place] [address] Social History Tobacco Use Types Packs/Day Years Used Date Smoking Tobacco: Former Cigarettes 1 12 Smokeless Tobacco: Never Alcohol Use Standard Drinks/Week Comments No 0 (1 standard drink = 0.6 oz pur e alcohol) [facility] Utilities Answer Date Recorded In the past 12 months has [place] electric, gas, oil, or water company threatened [...] declined 05/25/2024 How often do you attend uatsdin or buddhism serv ices? Patient declined 05/25/2024 Do you belong to any clubs o r organizations such as uatsdin groups, unions, fraternal or athletic groups, or [...] 03/2022 [facility] - Occupational Stress Questionnaire Answer Date Recorded [...] any time in the past 12 m [facility], were you homeless or living in a [place] health care facility (including now)? Patient declined 05/25/2024 Sexually Active [...] 04/09/2025 10:30 AM CDT Home Care Visit [address] [address] Vi Conway, PT [place] 04/11/2025 2:00 AM CDT Home Care Visit [address] [address] Keyona Shen, SOFTWARE REQUIREMENTS ENGINEER [place] 04/11/2025 8:30 AM CDT Home Care Visit [address] [address] Alyson Crowder, EVENING ANCHOR [place] 04/13/2025 1:00 AM CDT Appointment [address] [address] Nicolle Coates OT 04/17/2025 9:30 AM CDT Home Care Visit [address] [address] Karen Mcgarry, EVENING ANCHOR 04/19/2025 9:30 AM CDT Home Care Visit [address] [address] Karen Mcgarry, EVENING ANCHOR 04/23/2025 1:00 AM CDT [facility] [address] [place] [address] Karen Mcgarry, EVENING ANCHOR 04/25/2025 1:00 AM CDT Appointment [facility] [address] [place] [address] Vi Conway, [place] 06/28/2025 9:00 AM AIR SEALING TECHNICIAN [facility] [place] [address] [place] [address] Chapito Garcia MD #[address] [address] documented as of this encounter Visit Diagnoses Not on filedocumented in this encounter Care Teams Cook Boat Relationship Specialty Start Date End Date Sharon Moya MD [address] [place] [address] PCP - General Internal Medicine 09/16/21 Chapito Garcia MD #[address] [address] Consulting Physician Endocrinology 12/25/21 Radha Mac DPRahat #[address] [address] Consulting Physician Podiatry 05/26/22 documented as of this encounter
--- OUTSIDE RECORDS SUMMARY | 2025-04-06 15:00 | XMS_ITS | Encounter Summary ---
Author Organization [facility] Address [address] [facility] [place] [address] Phone Care Team Providers Care Silverer Name Role Phone Sharon Moya MD Primary Care Provider Chapito Garcia MD Unavailable Radha Mac DPM Unavailable [phone] Encounter Details Date Type Department Care Team (Late st Contact Info) Description 06/21/2024 Nursing Facility [facility] [address] [place], [place] [address] [place] [address] Fiorella Horn, LABORER LABORATORY, AESTHETICIAN [address] [place] [address] Social History Tobacco Use Types Packs/Day Years Used Date Smoking Tobacco: Former Cigarettes 1 12 Smokeless Tobacco: Never Alcohol Use Standard Drinks/Week Comments No 0 (1 standard drink = 0.6 oz pur e alcohol) [facility] Utilities Answer Date Recorded In the past 12 months has [employer] electric, gas, oil, or water company threatened [...] declined 05/25/2024 How often do you attend sikhism or catholic serv ices? Patient declined 05/25/2024 Do you belong to any clubs o r organizations such as sikhism groups, unions, fraternal or athletic groups, or [...] Total Score - Questions 1-9 0 03/2022 [facility] - Occupational Stress Questionnaire Answer Date Recorded [...] any time in the past 12 m [facility], were you homeless or living in a detention (including now)? Patient declined 05/25/2024 Sexually Active [...] 04/09/2025 10:30 AM CDT Home Care Visit [address] [address] Vi Conway, PT [place] 04/11/2025 2:00 AM CDT Home Care Visit [address] [address] Keyona Shen, LAUNDRY FOLDER [place] 04/11/2025 8:30 AM CDT Home Care Visit [address] [address] Alyson Crowder, WELDING MACHINE TENDER [place] 04/13/2025 1:00 AM CDT Appointment [address] [address] Nicolle Coates OT 04/17/2025 9:30 AM CDT Home Care Visit [address] [address] Karen Mcgarry, WELDING MACHINE TENDER 04/19/2025 9:30 AM CDT Home Care Visit [address] [address] Karen Mcgarry, WELDING MACHINE TENDER 04/23/2025 1:00 AM CDT [facility] [address] [place] [address] Karen Mcgarry, WELDING MACHINE TENDER 04/25/2025 1:00 AM CDT [facility]ointment [facility] [address] [place] [address] Vi Conway, PT [place] 06/28/2025 9:00 AM DIRECT CARE SPECIALIST [facility] [place] [address] [place] [address] Chapito Garcia MD #[address] [address] documented as of this encounter Visit Diagnoses Not on filedocumented in this encounter Care Teams Silverer Relationship Specialty Start Date End Date Sharon Moya MD [address] [place] [address] PCP - General Internal Medicine 09/16/21 Chapito Garcia MD #[address] [address] Consulting Physician Endocrinology 12/25/21 Radha Mac DPRahat #[address] [address] Consulting Physician Podiatry 05/26/22 documented as of this encounter
--- OUTSIDE RECORDS SUMMARY | 2025-04-06 15:00 | XMS_ITS | Encounter Summary ---
Author Organization [facility] Address [address] [facility] [place] [address] Phone Care Team Providers Care Dope Mixer Name Role Phone Sharon Moya MD Primary Care Provider [phone] Chapito Garcia MD Unavailable Radha Mac DPM Unavailable Reason for Visit * Reason Onset Date Comments Medication Refill 01/01/2025 Encounter Details Date Type Department Care Team (Late st Contact Info) Description 01/01/2025 Refill [facility] - [facility] [address] [place] [address] Chapito Garcia MD #[address] [address] Medication Refill Social History Tobacco Use Types Packs/Day Years Used Date Smoking Tobacco: Former Cigarettes 1 12 Smokeless Tobacco: Never Alcohol Use Standard Drinks/Week Comments No 0 (1 standard drink = 0.6 oz pur e alcohol) [facility] Utilities Answer Date Recorded In the past 12 months has [employer] electric, gas, oil, or water company threatened [...] How often do you attend taoist or yarsanism serv ices? Patient declined 05/25/2024 Do you [...] Score - Questions 1-9 0 02/0 03/2022 [facility] - Occupational Stress Questionnaire [...] any time in the past 12 m [facility], were you homeless or living [...] 04/09/2025 10:30 AM CDT Home Care Visit [address] [address] Vi Conway, PT [place] 04/11/2025 2:00 AM CDT Home Care Visit [address] [address] Keyona Shen [place] 04/11/2025 8:30 AM CDT Home Care Visit [address] [address] Alyson Crowder, MOLDED CANDLES WICKER [place] 04/13/2025 1:00 AM CDT Appointment [address] [address] Nicolle Coates, OT 04/17/2025 9:30 AM CDT Home Care Visit [address] [address] Karen Mcgarry, MOLDED CANDLES WICKER 04/19/2025 9:30 AM CDT Home Care Visit [address] [address] Karen Mcgarry, MOLDED CANDLES WICKER 04/23/2025 1:00 AM CDT [facility] [address] [place] [address] Karen Mcgarry, MOLDED CANDLES WICKER 04/25/2025 1:00 AM CDT Appointment [facility] [address] [place] [address] Vi Conway, PT [place] 06/28/2025 9:00 AM GARAGE ATTENDANT [facility] [address] [place] [address] Chapito Garcia MD #[address] [address] documented as of this encounter Visit Diagnoses Not on filedocumented in this encounter Care Teams Dope Mixer Relationship Specialty Start Date End Date Sharon Moya MD [address] [place] [address] PCP - General Internal Medicine 09/16/21 Chapito Garcia MD #[address] [address] Consulting Physician Endocrinology 12/25/21 Radha Mac DPM #[address] [address] Consulting Physician Podiatry 05/26/22 documented as of this encounter
--- OUTSIDE RECORDS SUMMARY | 2025-04-06 15:00 | XMS_ITS | Encounter Summary ---
Author Organization [facility] Address [address] [facility] [place] [address] Phone Care Team Providers Care German Tutor Name Role Phone Sharon Moya MD Primary Care Provider [phone] Chapito Garcia MD Unavailable Radha Mac DPM Unavailable [phone] Encounter Details Date Type Department Care Team (Late st Contact Info) Description 02/21/2025 Transcribe Orders [facility] [address] [place] [address] Edwin Gupta MD [address] [facility] [address] [place] [address] Other specified arthritis, unspecified site (Primary Dx) Social History Tobacco Use Types Packs/Day Years Used Date Smoking Tobacco: Former Cigarettes 1 12 Smokeless Tobacco: Never Alcohol Use Standard Drinks/Week Comments No 0 (1 standard drink = 0.6 oz pur e alcohol) [facility] Utilities Answer Date Recorded In the past 12 months has [employer] electric, gas, oil, or water company threatened [...] declined 05/25/2024 How often do you attend temple or samaritan serv ices? Patient declined 05/25/2024 Do you belong to any clubs o r organizations such as temple groups, unions, fraternal or athletic groups, or [...] Score - Questions 1-9 0 /0 03/2022 [facility] - [...] time in the past 12 m [facility], were you homeless or living [...] 04/09/2025 10:30 AM CDT Home Care Visit [address] [address] Vi Conway, PT [place] 04/11/2025 2:00 AM CDT Home Care Visit [address] [address] Keyona Shen, KYLER [place] 04/11/2025 8:30 AM CDT Home Care Visit [address] [address] Alyson Crowder, DIRECTOR OF COLLECTIONS AND ARCHIVES [place] 04/13/2025 1:00 AM CDT Appointment [address] [address] Nicolle Coates OT 04/17/2025 9:30 AM CDT Home Care Visit [address] [address] Karen Mcgarry, DIRECTOR OF COLLECTIONS AND ARCHIVES 04/19/2025 9:30 AM CDT Home Care Visit [address] [address] Karen Mcgarry, DIRECTOR OF COLLECTIONS AND ARCHIVES 04/23/2025 1:00 AM CDT [facility] [address] [place] [address] Karen Mcgarry, DIRECTOR OF COLLECTIONS AND ARCHIVES 04/25/2025 1:00 AM CDT [facility] [address] [place] [address] Vi Conway, PT [place] 06/28/2025 9:00 AM GUIDANCE ADVISER [facility] [place] [address] [place] [address] Chapito Garcia MD #2 [facility] [address] [address] Scheduled Orders Name Type Priority Associated Diagnoses Orde r Schedule QUANTIFERON-TB GOLD PLUS Lab Routine Other specified arthritis, unspecified site Expected: 02/21/2025, Expires: 02/21/2026 URIC ACID (BLOOD ASSAY) Lab Routine Other specified arthritis, unspecified site Expected: 02/21/2025, Expires: 02/21/2026 URINALYSIS REFLEX IF INDICATED BY ABNORMAL RESULTS Lab Routine Other specified arthritis, unspecified site Expected: 02/21/2025, Expires: 02/21/2026 THYROID STIMULATING HORMONE (TSH) Lab Routine Other specified arthritis, unspecified site Expected: 02/21/2025, Expires: 02/21/2026 ERYTHROCYTE SEDIMENTATION RATE (ESR) Lab Routine Other specified arthritis, unspecified site Expected: 02/21/2025, Expires: 02/21/2026 RHEUMATOID FACTOR (RFQT) QUANT Lab Routine Other specified arthritis, unspecified site Expected: 02/21/2025, Expires: 02/21/2026 HEPATITIS B SURFACE ANTIBODY (HBSAB) Lab Routine Other specified arthritis, unspecified site Expected: 02/21/2025, Expires: 02/21/2026 C-REACTIVE PROTEIN (CRP) QUANT Lab Routine Other specified arthritis, unspecified site Expected: 02/21/2025, Expires: 02/21/2026 KATIE SCREEN MULTIPLEX W/REFLEX SÁNCHEZ Lab Routine Other specified arthritis, unspecified site Expected: 02/21/2025, Expires: 02/21/2026 COMPLETE BLOOD COUNT (CBC) WITH DIFF Lab Routine Other specified arthritis, unspecified site Expected: 02/21/2025, Expires: 02/21/2026 CYCLIC CITRULLINATED PEPTIDE 3 Lab Routine Other specified arthritis, unspecified site Expected: 02/21/2025, Expires: 02/21/2026 HEPATITIS PANEL ACUTE (AHP) Lab Routine Other specified arthritis, unspecified site Expected: 02/22/2025 (Approximate), Expires: 05/23/2025 RENAL FUNCTION PANEL (RFP) Lab Routine Other specified arthritis, unspecified site Expected: 02/22/2025 (Approximate), Expires: 05/23/2025 CMP (COMPREHENSIVE METABOLIC PANEL) Lab Routine Other specified arthritis, unspecified site Expected: 02/22/2025 (Approximate), Expires: 05/23/2025 documented as of this encounter Visit Diagnoses Diagnosis Other specified arthritis, unspecified site- Primary documented in this encounter Care Teams German Tutor Relationship Specialty Start Date End Date Sharon Moya MD [address] [place] [address] PCP - General Internal Medicine 09/16/21 Chapito Garcia MD #[address] [address] Consulting Physician Endocrinology 12/25/21 Radha Mac DPM #[address] [address] Consulting Physician Podiatry 05/26/22 documented as of this encounter
--- OUTSIDE RECORDS SUMMARY | 2025-04-06 15:00 | XMS_ITS | Encounter Summary ---
Author Organization [facility] Address [address] [facility] [place] [address] Phone Care Team Providers Care Environmental Conflict Manager Name Role Phone Sharon Moya MD Primary Care Provider Chapito Garcia MD Unavailable Radha Mac DPM Unavailable Encounter Details Date Type Department Care Team (Late st Contact Info) Description 06/27/2024 Nursing Facility [facility] [address] [place], [place] [address] [place] [address] Fiorella Horn, BIODIESEL PROCESSING TECHNICIAN, RELOCATION COUNSELOR [address] [place] [address] Social History Tobacco Use Types Packs/Day Years Used Date Smoking Tobacco: Former Cigarettes 1 12 Smokeless Tobacco: Never Alcohol Use Standard Drinks/Week Comments No 0 (1 standard drink = 0.6 oz pur e alcohol) [facility] Utilities Answer Date Recorded In the past 12 months has [employer] electric, gas, oil, or water company threatened [...] How often do you attend zoroastrianism or samaritan serv ices? Patient declined 05/25/2024 [...] [facility] - Occupational Stress Questionnaire Answer Date [...] any time in the past 12 m [facility], were you homeless or living in a residential (including now)? Patient declined 05/25/2024 Sexually Active [...] 04/09/2025 10:30 AM CDT Home Care Visit [address] [address] Vi Conway, PT [place] 04/11/2025 2:00 AM CDT Home Care Visit [address] [address] Keyona Shen, DEFENCE FORCE MEMBER OTHER RANKS [place] 04/11/2025 8:30 AM CDT Home Care Visit [address] [address] Alyson Crowder, WIRE ROPE SLING MAKER [place] 04/13/2025 1:00 AM CDT Appointment [address] [address] Nicolle Coates OT 04/17/2025 9:30 AM CDT Home Care Visit [address] [address] Karen Mcgarry, WIRE ROPE SLING MAKER 04/19/2025 9:30 AM CDT Home Care Visit [address] [address] Karen Mcgarry, WIRE ROPE SLING MAKER 04/23/2025 1:00 AM CDT [facility] [address] [place] [address] Karen Mcgarry, WIRE ROPE SLING MAKER 04/25/2025 1:00 AM CDT [facility] [address] [place] [address] Vi Conway, PT [place] 06/28/2025 9:00 AM ALMOND SORTER [facility] Visit [facility] [place] #2 [place] [address] Chapito Garcia MD #[address] [address] documented as of this encounter Visit Diagnoses Not on filedocumented in this encounter Care Teams Environmental Conflict Manager Relationship Specialty Start Date End Date Sharon Moya MD [address] [place] [address] PCP - General Internal Medicine 09/16/21 Chapito Garcia MD #[address] [address] Consulting Physician Endocrinology 12/25/21 Radha Mac DPRahat #[address] [address] Consulting Physician Podiatry 05/26/22 documented as of this encounter
--- OUTSIDE RECORDS SUMMARY | 2025-04-06 15:00 | XMS_ITS | Clinical Summary ---
Author Organization [facility] Address [address] [place] [address] Phone Care Team Providers Care Ingot Supervisor Name Role Phone Sharon Moya MD Primary Care Provider [phone] Chapito Garcia MD Unavailable Radha Mac DPM Unavailable [phone] Allergies Active Allergy Reactions Criticality Noted Date Comments Corticosteroids Other (see Comments) 11/19/2022 Meperidine Vomiting,Nausea 02/11/2011 Other reaction(s): Nausea, Vomiting, Diarrhea / Diarrheal disorder Metformin Diarrhea 03/02/2019 Prednisone Unknown Low 08/19/2021 Carbamazepine Itching 01/09/2017 Medications divalproex (DEPAKOTE) 500 MG Tablet Delayed Response Take 1,000 mg by mouth 2 times daily. Active tamsulosin (FLOMAX) 0.4 MG Capsule Take 0.4 mg by mouth 2 times daily. 04/05/20 15 Active amLODIPine (NORVASC) 5 MG Tablet Take 5 mg by mouth daily. 07/23/19 21 Active hydrOXYzine (ATARAX) 25 MG Tablet Take 25 mg by mouth every 8 hours as needed for Anxiety. 06/11/20 21 Active FAMOTIDINE PO Take 40 mg by mouth daily. 07/10/20 21 Active zinc sulfate (ZINCATE) 220 (50 Zn) MG Capsule Take 220 mg by mouth daily. Active Probiotic Product (PROBIOTIC-10 PO) Take by mouth. Activ e Misc. Devices MiscIndications :Type 2 diabetes mellitus with diabetic polyneuropathy, with long-term current use of insulin Diabetic shoes 1 Each 02/06/20 22 Active fluticasone (FLONASE) 50 MCG/ACT Suspension 1-2 Sprays by Nasal route daily. Use in each nostril as directed. 9.9 mL 06/27/20 22 Active Premarin 0.625 MG/GM Cream 01/12/20 23 Active linaCLOtide (LINZESS) 72 MCG Capsule Take 1 Capsule by mouth daily. 30 Capsule 12/12/19 24 Active alendronate (FOSAMAX) 70 MG Tablet Take 70 mg by mouth every 7 days. Active polyethylene glycol (GLYCOLAX, MIRALAX) 17 g Pack Take 17 g by mouth daily. Dissolve in 4-8 oz of liquid. Active ondansetron (ZOFRAN-ODT) 4 MG TABLET DISPERSIBLE Take 1 Tablet by mouth every 6 hours as needed for Nausea - 1st line. 10 Tablet 05/27/20 24 Active OneTouch Delica Lancets 33G MiscIndications :Type 2 diabetes mellitus with diabetic polyneuropathy, with long-term current use of insulin 1 Lancet . by Does not apply route 4 times daily. Test blood glucose 3x daily. E11.42, insulin dependent 400 Lancet . 3 09/12/19 25 Active Insulin Pen Needle (Pen [place]) 32G X 4 MM Misc 1 Pen Needle by Does not apply route 4 times daily. Use to inject insulin 4x daily. 400 Each 3 09/12/19 25 Active primidone (MYSOLINE) 50 MG Tablet Take 50 mg by mouth every 6 hours. 11/22/19 25 Active insulin glargine (Lantus SoloStar) 100 UNIT/ML Solution Pen-injector 12 Units by Subcutaneous route nightly. 15 mL 1 12/28/19 25 Active Glucose Blood (Accu-Chek Guide Test) Strip Test blood glucose 3x daily. E11.42, insulin dependent 300 Strip 3 01/18/20 25 Active Blood Glucose Monitoring Suppl (Accu-Chek Guide Me) w/Device KitIndications: Type 2 diabetes mellitus with diabetic polyneuropathy, with long-term current use of insulin 1 Kit by Does not apply route 3 times daily. Check blood glucose 3x daily, E11.42, insulin dependent 1 Kit 02/16/20 25 Active terconazole (TERAZOL 7) 0.4 % Cream 1 Applicatorful by Vaginal route daily. INSERT 1 APPLICATORFUL EVERY DAY BY VAGINAL ROUTE FOR 7 DAYS 11/25/19 25 Active montelukast (SINGULAIR) 10 MG Tablet Take 10 mg by mouth daily. Active furosemide (LASIX) 40 MG Tablet Take 40 mg by mouth 2 times daily. Take 40 mg by mouth in the morning and 40 mg in the evening. 06/29/20 22 Active Elastic Bandages & Supports (Back Support) Mis as directed; Duration: 365 days 06/01/20 17 Active Restasis 0.05 % Emulsion Place 1 Drop in both eyes 2 times daily. Active benzonatate (TESSALON) 100 MG Capsule Take 100 mg by mouth 3 times daily as needed for Cough. 12/23/19 25 Active VITAMIN D, CHOLECALCIFEROL , PO Take 3,000 Int'l Units by mouth nightly. 03/10/20 18 Active NYSTATIN EX 1 Application 3 times daily. 05/20/20 21 Active Sennosides (SENOKOT PO) Take 1 Tablet by mouth nightly. Active Accu-Chek FastClix Lancets Mis 1 Lancet . by Does not apply route 4 times daily (before meals and nightly). Test blood glucose 4x daily. E11.42, insulin dependent 03/03/20 25 Active busPIRone (BUSPAR) 15 MG Tablet Take 15 mg by mouth 3 times daily. Active citalopram (CeleXA) 20 MG Tablet Take 20 mg by mouth daily. Active estradiol (ESTRACE) 0.1 MG/GM Cream 1 g by Vaginal route Every Wednesday, Wednesday, Wednesday. 01/03/20 25 Active hydrocortisone 2.5 % Cream Apply. 2-4 TIMESDAILY for 1-2 weeks 09/23/19 25 Active melatonin 3 MG Tablet Take 3 mg by mouth nightly as needed. Active methenamine (HIPREX) 1 GM Tablet Take 1 g by mouth 2 times daily. Active nitrofurantoin, monohydrate-mac rocrystal, (MACROBID) 100 MG Capsule Take 100 mg by mouth 2 times daily. 12/29/19 25 Active senna (SENOKOT) 8.6 MG Tablet Take 1 Tablet by mouth nightly as needed. Active sulfaSALAzine (AZULFIDINE) 500 MG Tablet Take 500 mg by mouth 2 times daily. Active tiotropium (Spiriva Respimat) 2.5 MCG/ACT Aerosol Solution take 2 Puffs by inhalation daily. Active albuterol (PROVENTIL, VENTOLIN) (2.5 MG/3ML) 0.083% Nebulizer Soln 2.5 mg by Nebulization route every 6 hours as needed. 11/28/19 20 Active albuterol 108 (90 Base) MCG/ACT Aerosol Solution take 1 Puff by inhalation every 4 hours as needed. Active amLODIPine (NORVASC) 5 MG Tablet Take 5 mg by mouth daily. Active atorvastatin (LIPITOR) 20 MG Tablet Take 20 mg by mouth nightly. Active famotidine (PEPCID) 40 MG Tablet Take 40 mg by mouth every evening. Active furosemide (LASIX) 40 MG Tablet Take 40 mg by mouth daily. Active Dextromethorpha n-guaiFENesin (guaiFENesin-DM ) 100-10 MG/5ML Liquid Take 10 mL by mouth every 4 hours as needed. 04/14/20 21 Active loratadine (CLARITIN) 10 MG Capsule Take 10 mg by mouth daily. Active risperiDONE (risperDAL) 0.5 MG Tablet Take 0.5 mg by mouth nightly. Active trimethoprim (TRIMPEX) 100 MG Tablet Take 100 mg by mouth daily. Active lidocaine (LIDODERM) 5 % Patch 1 Patch by Transdermal route every 24 hours. 03/16/20 25 Active Incontinence Supply Disposable (Depend Underwear X-Large) Misc as directed DX. z74.0 impaired mobility nightly; Duration: 365 days 03/30/20 18 Active Misc. Devices Misc Power scooter 12/25/19 18 Active Misc. Devices (Wheelchair) Misc as directed as needed; Duration: 365 days 06/14/20 19 Active BD [employer] Misc as directed as needed; Duration: 365 days 12/10/19 18 Active Elastic Bandages & Supports (Back Support) Misc as directed; Duration: 365 days 06/01/20 17 Active Insulin Lispro, 1 Unit Dial, 100 UNIT/ML Solution Pen-injector 12 Units by Subcutaneous route 3 times daily (before meals). rx [id number] Active lidocaine (LIDODERM) 5 % Patch 1 Patch by Transdermal route every 12 hours. rx [id number] Active levothyroxine (SYNTHROID) 175 MCG Tablet Take 1 Tablet by mouth daily. 90 Tablet 1 03/29/20 Active busPIRone (BUSPAR) 15 MG Tablet Take 15 mg by mouth 2 times daily. Discontin ued(Med List Clean Up) atorvastatin (LIPITOR) 20 MG Tablet Take 20 mg by mouth daily. Discontin ued(Med List Clean Up) citalopram (CELEXA) 20 MG Tablet citalopram 20 mg tablet daily 06/21/20 Discontin ued(Error ) risperiDONE (RISPERDAL) 0.5 MG Tablet Take 0.5 mg by mouth daily. 04/05/20 15 Discontin ued(Dupli huber Order) levothyroxine (SYNTHROID) 150 MCG Tablet Take 150 mcg by mouth daily. Discontin ued(Reord er) Fluticasone-Ume clidin-Vilant (Trelegy Ellipta) 100-62.5-25 MCG/INH AEROSOL POWDER, BREATH ACTIVATED take 1 Puff by inhalation daily. 06/12/20 025 Discontin ued(Med List Clean Up) acetaminophen (TYLENOL) 500 MG Tablet Take 1,000 mg by mouth 3 times daily. 07/10/20 Discontin ued(Med List Clean Up) sulfaSALAzine (AZULFIDINE) 500 MG Tablet Take 500 mg by mouth 4 times daily. Discontin ued(Dupli huber Order) azithromycin (ZITHROMAX) 250 MG Tablet Take 250 mg by mouth daily. 2 tab(s) daily for 1 day, then 1 tab(s) daily for days 2-5. Discontin ued(Med List Clean Up) semaglutide, 1 MG/DOSE, (Ozempic, 1 MG/DOSE,) 4 MG/3ML Solution Pen-injector INJECT 1 MG SUBCUTANEOUSLY ONE TIME PER WEEK *NEW PRESCRIPTION REQUEST* 6 mL 1 12/28/19 Discontin ued(Med List Clean Up) Insulin Lispro, 1 Unit Dial, 100 UNIT/ML Solution Pen-injector INJECT 14-10-14 UNITS SUBCUTANEOUSLY BEFORE EACH MEAL + CORRECTIONAL FACTOR INSULIN (MAX 50 UNITS PER DAY) 45 mL 1 02/23/20 Discontin ued(Med List Clean Up) cephALEXin (KEFLEX) 500 MG Capsule Take 500 mg by mouth 4 times daily. Discontin ued(Dupli huber Order) trimethoprim (TRIMPEX) 100 MG Tablet Take 100 mg by mouth daily. Discontin ued(Dupli huber Order) hydrOXYzine (ATARAX) 25 MG Tablet Take 25 mg by mouth nightly as needed. Discontin ued(Med List Clean Up) Insulin Aspart FlexPen 100 UNIT/ML Solution Pen-injector 8 Units by Subcutaneous route. 05/25/20 24 Discontin ued(Med List Clean Up) insulin lispro (HumaLOG) 100 UNIT/ML Solution by Subcutaneous route 3 times daily (before meals). INJECT 14-10-14 UNITS SUBCUTANEOUSLY BEFORE EACH MEAL + CORRECTIONAL FACTOR INSULIN (MAX 50 UNITS PER DAY) Discontin ued(Med List Clean Up) loratadine (CLARITIN) 5 MG TABLET DISPERSIBLE Take 5 mg by mouth daily as needed. 10/12/19 25 Discontin ued(Dupli huber Order) Ozempic, 0.25 or 0.5 MG/DOSE, 2 MG/3ML Solution Pen-injector 1 mg by Subcutaneous route once a week. Discontin ued(Med List Clean Up) acetaminophen extra strength (TYLENOL EXTRA STRENGTH) 500 MG Capsule Take 1,000 mg by mouth 3 times daily. Discontin ued(Med List Clean Up) alendronate (FOSAMAX) 70 MG Tablet Take 70 mg by mouth every 7 days. Discontin ued(Med List Clean Up) buspirone hcl (BUCAPSOL) 15 MG Capsule Take 15 mg by mouth 3 times daily. Discontin ued(Dupli huber Order) citalopram (CeleXA) 20 MG Tablet Take 20 mg by mouth daily. Discontin ued(Dupli huber Therapy) divalproex (DEPAKOTE) 500 MG Tablet Delayed Response Take 1,000 mg by mouth 2 times daily. Discontin ued(Dupli huber Order) fluticasone (FLONASE) 50 MCG/ACT Suspension 1 [place] by Nasal route daily. 025 Discontin ued(Med List Clean Up) glipiZIDE (GLUCOTROL XL) 5 MG TABLET SR 24 HR Take 5 mg by mouth daily. 025 Discontin ued(Med List Clean Up) Insulin Lispro, 1 Unit Dial, (HumaLOG KwikPen) 100 UNIT/ML Solution Pen-injector INJECT 14-10-14 UNITS SUBCUTANEOUSLY BEFORE EACH MEAL + CORRECTIONAL FACTOR INSULIN (MAX 50 UNITS PER DAY) 025 Discontin ued(Dupli huber Order) hydrOXYzine (ATARAX) 25 MG Tablet Take 25 mg by mouth nightly as needed. 025 Discontin ued(Dupli huber Order) levothyroxine sodium (TIROSINT) 150 MCG Capsule Take 150 mcg by mouth daily. 025 Discontin ued(Dupli huber Order) insulin glargine (Lantus SoloStar) 100 UNIT/ML Solution Pen-injector 45 Units by Subcutaneous route nightly. 025 Discontin ued(Med List Clean Up) insulin glargine in sodium chloride 12 Units by Subcutaneous route nightly. rx [id number] 025 Discontin ued(Med List Clean Up) Active Problems Problem Noted Date Diagnosed Date [...] Encounters Date Type Department Care Team Description 04/06/2025 1:00 PM CDT Home Care Visit [address] [address] Nicolle Coates, OT OT - HOME VISIT 04/06/2025 9:30 AM CDT Home Care Visit [address] [address] Karen Mcgarry WIRELESS RETAIL MANAGER PT - HOME VISIT 04/06/[address] [address] Carlene Sena, RN Symptom Management; Urinary Symptoms. 04/05/2025 1:45 PM CDT Home Care Visit [address] [address] Nicolle Coates, OT OT - CORREIA SUPERVISORY VISIT 04/05/[address] [address] Nicolle Coates, OT Medication Management 04/04/2025 9:30 AM CDT Home Care Visit [address] [address] Karen Mcgarry WIRELESS RETAIL MANAGER PT - HOME VISIT 04/03/2025 10:00 AM CDT Home Care Visit [address] [address] Hand, Edel L., RESOLUTION EXPERT SN - DISCIPLINE DISCHARGE 04/03/2025 Home Care Visit [address] [address] Vi Conway, PT CARE CONFERENCE 03/30/2025 9:30 AM CDT Home Care Visit [address] [address] Karen Mcgarry, JADE PT - HOME VISIT 03/29/2025 3:30 PM CDT Home Care Visit [address] [address] Keyona Shen, KYLER OT - HOME VISIT Discharge Disposition: Discharged to home or Selfcare 03/29/2025 9:45 AM CDT Office Visit [facility] [address] [place] [phone] Chapito Garcia MD Type 2 diabetes mellitus with diabetic polyneuropathy, with long-term current use of insulin (HCC) (Primary Dx); Insulin dose changed (HCC); Hypoglycemia; Overweight; Acquired hypothyroidism; Medication dose changed Discharge Disposition: Discharged to home or Selfcare 03/29/2025 Travel 03/28/2025 9:30 AM CDT Home Care Visit [address] [address] Karen Mcgarry, WIRELESS RETAIL MANAGER PT - HOME VISIT 03/27/2025 12:30 PM CDT Home Care Visit [address] [address] Nicolle Coates OT OT - INITIAL EVALUATION 03/27/2025 Home Care Visit [address] [address] Margo Jefferson RN TELEPHONE ENCOUNTER 03/26/2025 12:00 PM CDT Home Care Visit [address] [address] Lupe Shah, DIE MAINTENANCE DIE MAINTENANCE - INITIAL EVALUATION 03/26/2025 Telephone [facility] [address] [place] [address] Chapito Garcia MD 03/25/[address] [address] Grace Barr RN Low Blood Sugar 03/25/2025 Telephone [facility] [address] [place] [phone] Azalia Viera RN Diabetes Mellitus (Remote Patient Monitoring program) 03/23/2025 8:00 AM CDT Home Care Visit [address] [address] Margo Jefferson RN SN - HOME HEALTH INITIAL EVALUATION 03/23/2025 Home Care Visit [address] [address] Minal Tran RN SN - WOUND/OSTOMY CONSULTATION 03/22/2025 9:30 AM CDT Home Care Visit [address] [address] Vi Conway, PT PT - OASIS START OF CARE 03/22/2025 Telephone [facility] - [facility] - [place] [address] [place] [address] Chapito Garcia MD Results 03/22/2025 Plan of Care Documentation [address] [address] 03/17/2025 5:20 PM CDT Telemedicine [facility] [address] [place] [phone] Primary hypertension (Primary Dx); Type 1 diabetes mellitus without complication Discharge Disposition: Discharged to home or Selfcare 03/17/2025 Travel 03/14/2025 [facility] [place] [address] [place] [address] Chapito Garcia MD Advice Only 03/11/2025 Telephone [facility] [address] [place] [phone] Alicja Avila, DWAYNE Social Concerns (Shower assistance) 03/09/2025 Patient Outreach [facility] [address] [place] [phone] Navigator, Digital Health Social Concerns 03/05/2025 Patient Outreach [facility] [address] [place] [phone] Navigator, Digital Health 03/03/2025 1:20 PM CDT Telemedicine [facility] [address] [place] [phone] Type 2 diabetes mellitus with diabetic polyneuropathy, with long-term current use of insulin (HCC) (Primary Dx); Primary hypertension Discharge Disposition: Discharged to home or Selfcare 03/03/2025 Patient Outreach [facility] [address] [place] [phone] Navigator, Digital Health Patient Outreach; Social Concerns 03/03/2025 Patient Outreach [facility] [address] [place] [phone] Yudelka Frances RN Patient Outreach 03/03/2025 Travel 02/25/2025 Telephone [facility] [address] [place] [phone] Yudelka Frances, DWAYNE Hypertension ([facility] Remote Patient Monitoring ); Need Order 02/21/2025 Refill [facility] [address] [place] [phone] Chapito Garcia MD Medication Refill 02/21/2025 Transcribe Orders [facility] [address] [place] [phone] Edwin Gupta MD Other specified arthritis, unspecified site (Primary Dx) 02/15/2025 4:41 AM CDT - 02/15/2025 5:58 AM CDT [facility] [address] [place] [address] Antoine Akbar MD Cellulitis of buttock Discharge Disposition: Discharged to home or Selfcare 02/15/2025 Telephone [facility] [address] [place] [phone] Chapito Garcia MD 02/15/2025 Travel 02/14/2025 Refill [facility] [address] [place] [address] Chapito Garcia MD Medication Refill 02/11/2025 Telephone [facility] [address] [place] [phone] Zarina Huang RN Need Order (Blood pressure monitor) 02/11/2025 Telephone [facility] [address] [place] [phone] Tashi Nash, RN Care Management 02/07/2025 Telephone [facility] [address] [place] [phone] Chapito Garcia MD Low Blood Sugar; Medication Management 01/21/2025 Telephone [facility] [address] [place] [phone] Tashi Nash, RN Hypertension 01/17/2025 Refill [facility] [address] [place] [address] Chapito Garcia MD Medication Refill from Last [...] Injectable, Mdck,quadrivalent,with Preservative 07/02/2021 Influenza, Injectable, Quadrivalent 06/11,07/02/2021,04/11/2019,07/12 Influenza, Seasonal, Injecta ble, Undefined 03/06/2022 Influenza, Trivalent, Adjuvanted, PF 08/07/2018 Influenza, high-dose, trivalent, PF 05/05/2024,1 07/23/2013,05/23/2014 Influenza,Split Virus,Trivalent,Injectable,PF 05/02/2017 Pneumococcal Vaccine - 13 Valent 08/25/2016 Pneumococcal Vaccine Adult - 23 Valent ,07/12/1999 Pneumococcal Vaccine, Unspec ified Formulation 07/12/1999,07/12/1999 Pneumococcal conjugate PCV20 , polysaccharide [id number] conjugate, adjuvant, PF 09/22/2024 Sars-cov-2 (Covid-19) Vaccin e, Unspecified 11/05/2020 TDAP Vaccine 02/27/2017,02/27/2017 Tetanus Toxoid, Unspecified Formulation 07/12/1999 Tuberculin Skin Test; Purifi ed Protein Derivative Solutiol 07/12/1999 Zoster Vaccine Recombinant 12/12/2024,10/12/2024 Family History Medical History Relation Name Comments Diabetes Father Heart Disease Mother Hypertension Mother Relation Name Status Comments Father Mother Social History Tobacco Use Types Packs/Day Years Used Date Smoking Tobacco: Former Cigarettes 1 12 Smokeless Tobacco: Never Tobacco Cessation:Counseling Given: Not Answered Alcohol Use Standard Drinks/Week Comments No 0 (1 standard drink = 0.6 oz pur e alcohol) [facility] Utilities Answer Date Recorded In the past 12 months has [employer], gas, oil, or water [facility] threatened to shut off services in your home? Patient declined 05/25/2024 Social Connection and Isolation Panel Answer Date Recorded In a typical week, how many times do you talk on the phone with family, friends, or neighbors? Patient declined 05/25/2024 How often do you get togethe r with friends or relatives? Patient declined 05/25/2024 How often do you attend shinto or jew serv ices? Patient declined 05/25/2024 Do you belong to any clubs o r organizations such as shinto groups, unions, fraternal or athletic groups, or [...] Score - Questions 1-9 0 02/0 03/2022 [facility] - Occupational Stress [...] nursing home (including now)? Patient declined 05/25/2024 PRAPARE - [...] 9:36 AM CDT Oxygen Saturation 97% 04/06/2025 9:3 6 AM CDT Inhaled Oxygen Concentration - - Weight 88.5 kg (195 lb) 03/30/2025 9:[address] Garcia office yesterday Height 175.3 cm (5' 9) 03/27/2025 11:5 8 AM CDT Body Mass Index 28.8 03/27/2025 11:58 AM CDT Plan of Treatment Upcoming Encounters Date Type Department Care Team (Late st Contact Info) Description 04/09/2025 10:30 AM CDT [facility] [address] [place] [address] Vi Conway PT [place] 04/11/2025 2:00 AM CDT [facility] [address] [place] [address] Keyona Shen OTA [place] 04/11/2025 8:30 AM CDT Home Care Visit [address] [address] Alyson Crowder, WIRELESS RETAIL MANAGER [place] 04/13/2025 1:00 AM CDT Appointment [address] [address] Nicolle Coates, OT 04/17/2025 9:30 AM CDT Home Care Visit [address] [address] Karen Mcgarry, WIRELESS RETAIL MANAGER 04/19/2025 9:30 AM CDT Home Care Visit [address] [address] Karen Mcgarry, WIRELESS RETAIL MANAGER 04/23/2025 1:00 AM CDT Home Care Visit [address] [address] Karen Mcgarry, WIRELESS RETAIL MANAGER 04/25/2025 1:00 AM CDT Appointment [address] [address] Vi Conway, PT [place] 06/28/2025 9:00 AM CHIEF ENGINEERING DIVISION [facility] - [place] [address] [place] [address] Chapito Garcia MD [address] [phone] Health Maintenance Due Date Last Done Comments Hepatitis C Virus (HCV) Screening 1960 Medicare Initial AWV [id number] 12/10/2001 Cologuard 2004 Colonoscopy 2004 Colorectal Cancer Screening 2004 Immunochemical Fecal Occult Blood 2004 Respiratory Syncytial Virus (RSV) Immunization (Adult) (1 - Risk 60-74 years 1-dose series) 2019 Hepatitis B Immunization (2 of 2 - CpG 2-dose series) 05/21/2020 04/23/2020 Influenza Immunization (#1) 03/12/202504/12, 06/25/2023, 03/06/2022, Additional history exists SARS-COV-2 Immunization ( season) 2025 10/12/2024, 10/25/2023, 10/30/2022, Additional history exists Diabetes: Eye Exam 08/14/2025 08/14/2024, 0 01/31/2024, 01/31/2024 Diabetes: Hemoglobin A1c 09/26/2025 025, 12/21/2024, 09/11/2024, Additional history exists DEXA Bone Density 11/02/2025 11/03/2023 Diabetes: Foot Exam 12/21/2025 12/21/2024 Mammogram 01/15/2026 01/15/2025, 11/11, 09/28/2022, Additional history exists Diabetes: Nephropathy Screening 02/15/2026 02/15/2025, 05/22/2024, 02/28/2023, Additional history exists Td Immunization Every 10 Years (Adults With 1 Tdap) 02/27/2027 02/27/2017, 02/27/2017 DTaP/Tdap/Td Immunization Discontinued 02/27/2017, Pneumococcal Immunization (50+ years) Completed 09/22/2024, 02/13/2021, 08/25/2016, Additional history exists Pneumococcal Immunization Combined Discontinued 09/22/2024, 02/13/2021, 08/25/2016, Additional history exists Zoster Immunization Completed 12/12/2024, Human Papillomavirus (HPV) Immunization Aged Out No longer eligible based on patient's age to complete this topic Meningococcal Immunization (ACWY) Aged Out No longer eligible based on patient's age to complete this topic Rotavirus Immunization Aged Out No lo nger eligible based on patient's age to complete this topic Interventions Community Resource Recommendations Community Resource Services Recommended Domains Addressed Status Status Reason/Outcome Date/Time [facility] - [facility] [employer] Transportation Transportation Needs Recommended 03/13/2025 1:32 PM CDT from Last 12 Months Procedures Procedure Name Priority Date/Time Associated Diagnosis Comments POCT GLYCOSYLATED HEMOGLOBIN Routine 03/29/2025 9:30 AM CDT Type 2 diabetes mellitus with diabetic polyneuropathy, with long-term current use of insulin (HCC) CBC WITH AUTO DIFFERENTIAL STAT 02/15/2025 4:59 AM CDT URINALYSIS REFLEX IF INDICATED BY ABNORMAL RESULTS STAT 02/15/2025 4:59 AM CDT MAGNESIUM (MG) STAT 02/15/2025 4:59 AM CDT CMP (COMPREHENSIVE METABOLIC PANEL) STAT 02/15/2025 4:59 AM CDT COMPLETE BLOOD COUNT (CBC) WITH DIFF STAT 02/15/2025 4:59 AM CDT POCT GLUCOSE STAT 02/15/2025 4:50 AM CDT HM DILATED EYE EXAM 01/31/2024 1 2:00 AM CDT from Last 3 Months or Most Recently Relevant to Health Maintenance Results * (ABNORMAL) POCT GLYCOSYLATED HEMOGLOBIN (03/29/2025 9:30 AM CDT) Pathologist [facility] HGB-A1C 8.3(A) 4 - 6 % Blood 03/29/2025 9:30 AM CDT Chapito Garcia MD POINT OF CARE TESTING (MANUAL) F inal Result * (ABNORMAL) Urinalysis w/ Reflex (02/15/2025 4:59 AM CDT) [facility] SPECIFIC GRAVITY 1.010 1.003 - 1.030 02/15/2025 5:40 AM CDT [facility] URINE PH 6.0 5.0 - 9.0 02/15/2025 5:40 AM CDT [facility] WBC ESTERASE Negative Negative 02/15/2025 5:40 AM CDT [facility] NITRITE Negative Negative 02/15/2025 5:40 AM CDT [facility] PROTEIN, RANDOM URINE 15 mg/dL(A) Negative 02/15/2025 5:40 AM [facility], QUAL 100 mg/dL(A) Negative 02/15/2025 5:40 AM CDT [facility] URINE KETONES Negative Negative 02/15/2025 5:40 AM CDT [facility] UROBILINOGEN Normal Normal mg/dL 02/15/2025 5:40 AM CDT [facility] URINE BLOOD Negative Negative julia/ul 02/15/2025 5:40 AM CDT [facility] URINALYSIS COLOR Yellow 02/16/20 5:40 AM CDT [facility] URINALYSIS CLARITY Clear 02/15/2025 5:40 AM CDT [facility] WBC (Urine) 0-5 Negative, 0-5 /hpf 02/15/2025 5:40 AM CDT [facility] URINE RBC'S 0-2 Negative, 0-2 /hpf 02/15/2025 5:40 AM CDT [facility] EPITHELIAL CELLS Small amount /lpf 2024 5:40 AM CDT [facility] BACTERIA, URINE Few(A) Negative /hpf 02/15/2025 5:40 AM CDT [facility] Urine URINE SPECIMEN / Unknown Non-Phlebotomy Collection / Unknown 02/15/2025 4:59 AM CDT 02/15/2025 5:06 AM CDT us Antoine Akbar MD URINE ORDERABLES Final Re sult [facility] [address] [place] [address] * (ABNORMAL) CBC with Auto Differential (02/15/2025 4:59 AM CDT) WBC 6.03 4.00 - 12.00 10(3)/mcL 02/15/2025 5:30 AM CDT [facility] RBC 4.38 3.80 - 5.30 10(6)/mcL 02/15/2025 5:30 AM CDT [facility] HEMOGLOBIN (HGB) 13.7 12.0 - 15.8 g/dL 02/15/2025 5:30 AM CDT [facility] HEMATOCRIT (HCT) 41.7 36.0 - 47.0 % 02/15/2025 5:30 AM CDT [facility] MCV 95.2 82.0 - 96.0 fL 02/15/2025 5:30 AM CDT [facility] MCH 31.3 26.0 - 34.0 pg 02/15/2025 5:30 AM CDT [facility] MCHC 32.9 31.0 - 36.0 g/dL 02/15/2025 5:30 AM CDT [facility] PLATELET COUNT 86(L) 140 - 440 10(3)/[facility] 02/15/2025 5:30 AM CDT [facility] RDW 13.6 11.8 - 15.5 % 02/15/2025 5:30 AM CDT [facility] MPV 12.6(H) 9.7 - 12.4 fL 02/15/2025 5:30 AM CDT [facility] NEUTROPHILS 52.9 47.0 - 73.0 % 02/15/2025 5:30 AM CDT [facility] LYMPHOCYTES 33.2 18.0 - 42.0 % 02/15/2025 5:30 AM CDT [facility] MONOCYTES 11.3 4.0 - 12.0 % 02/15/2025 5:30 AM CDT [facility] EOSINOPHILS 0.7 0.0 - 5.0 % 02/15/2025 5:30 AM CDT [facility] BASOPHILS 0.7 0.0 - 1.0 % 02/15/2025 5:30 AM CDT [facility] IMMATURE GRANULOCYTE 1.2(H) 0.0 - 0.4 % 02/15/2025 5:30 AM CDT [facility] Comment:Immature Granulocyte s includes Metamyelocytes, Myelocytes, and Promyelocytes. ABSOLUTE NEUTROPHILS 3.20 1.60 - 7.70 10(3)/mcL 02/15/2025 5:30 AM CDT [facility] ABSOLUTE LYMPHOCYTES 2.00 1.30 - 3.20 10(3)/mcL 02/15/2025 5:30 AM CDT [facility] ABSOLUTE MONOCYTES 0.68 0.20 - 1.00 10(3)/mcL 02/15/2025 5:30 AM CDT [facility] ABSOLUTE EOSINOPHIL 0.04 0.00 - 0.40 10(3)/mcL 02/15/2025 5:30 AM CDT [facility] ABSOLUTE BASOPHILS 0.04 0.00 - 0.10 10(3)/mcL 02/15/2025 5:30 AM CDT [facility] ABSOLUTE IMMATURE GRANULOCYTE 0.07(H) 0.00 - 0.03 10 (3) mcL. 02/15/2025 5:30 AM CDT [facility] NRBC PER 100 WBC 0 02/16/20 5:30 AM CDT [facility] Blood Venipuncture / Unknown 02/15/2025 4:59 AM CDT 02/15/2025 5:05 AM CDT us Antoine Akbar MD HEMATOLOGY ORDERABLES Fin al Result [facility] [address] [place] [address] * Magnesium (02/15/2025 4:59 AM CDT) MAGNESIUM 2.3 1.6 - 2.6 mg/dL 02/15/2025 5:37 AM CDT [facility] Blood Venipuncture / Unknown 02/15/2025 4:59 AM CDT 02/15/2025 5:05 AM CDT Antoine Akbar MD CHEMISTRY ORDERABLES Poly l Result [facility] [address] [place] [address] * (ABNORMAL) CMP (02/15/2025 4:59 AM CDT) SODIUM 141 136 - 145 mmol/L 02/15/2025 5:37 AM CDT [facility] POTASSIUM 4.6 3.5 - 5.1 mmol/L 02/15/2025 5:37 AM CDT [facility] CHLORIDE 106 98 - 107 mmol/L 02/15/2025 5:37 AM CDT [facility] CO2, VENOUS 26 22 - 30 mmol/L 02/15/2025 5:37 AM CDT [facility] ANION GAP 13.6 <18.0 mmol/L 02/15/2025 5:37 AM CDT [facility] GLUCOSE 240(H) 70 - 99 mg/dL 02/15/2025 5:37 AM CDT [facility] BUN 43(H) 10 - 20 mg/dL 02/15/2025 5:37 AM CDT [facility] CREATININE, BLOOD 1.68(H) 0.60 - 1.00 mg/dL 02/15/2025 5:37 AM CDT [facility] BUN/CREATININE RATIO 26(H) 12 - 20 ratio 02/15/2025 5:37 AM CDT [facility] TOTAL PROTEIN 6.6 6.0 - 8.0 g/dL 02/15/2025 5:37 AM CDT [facility] ALBUMIN 3.9 3.5 - 5.0 g/dL 02/15/2025 5:37 AM CDT [facility] A/G RATIO 1.4 1.0 - 2.2 02/15/2025 5:37 AM CDT [facility] CALCIUM 9.1 8.7 - 10.5 mg/dL 02/15/2025 5:37 AM CDT [facility] T BILI 0.3 0.2 - 1.2 mg/dL 02/15/2025 5:37 AM CDT [facility] SGOT (AST) 18 <43 U/L 02/15/2025 5:37 AM CDT [facility] SGPT (ALT) 12 <56 U/L 02/15/2025 5:37 AM CDT [facility] ALKALINE PHOSPHATASE 47 40 - 150 U/L 02/15/2025 5:37 AM CDT [facility] GFR, ESTIMATED 34(L) >=60 02/15/2025 5:37 AM CDT [facility] Comment: Creatinine Clearance is the preferred criteria for selecting drug dose adjustments in renally impaired patients. The GFR is provided as additional pertinent clinical information. GFR is reported in mL/min/1.73 sq m. Calculation based on the Chronic Kidney Disease Epidemiology Collaboration (CKD- EPI) equation refit without adjustment for race. GFR, EST. 37(L) >=60 025 5:37 AM CDT [facility] GFR, EST. NONAFRICAN 31(L) >=60 02/15/2025 5:37 AM CDT [facility] Blood Venipuncture / Unknown 02/15/2025 4:59 AM CDT 02/15/2025 5:05 AM CDT us Antoine Akbar MD CHEMISTRY ORDERABLES Poly l Result [facility] [address] [place] [address] * (ABNORMAL) POCT Glucose (02/15/2025 4:50 AM CDT) GLUCOSE,BEDSID E POCT 215(H) 70 - 99 mg/dL 02/15/2025 4:50 AM CDT [facility] Comment:Patient RN Performed Blood 02/15/2025 4:50 AM CDT 02/15/2025 4:50 AM CDT us None Provider POINT OF CARE TESTING Final Resu lt [facility] [address] [place] [address] * HM DILATED EYE EXAM (01/31/2024 12:00 AM CDT) 01/31/2024 us Provider Scan PROCEDURE/MINOR SURGICAL ORDERAB LES Final Result SCAN from Last 3 Months or Most Recently Relevant to Health Maintenance Insurance [id number] [place] [address] MEDICAID [place] MEDICARE C [employer] Advance Directives * Full Code (Latest Code Status on File) Date Activated Date Inactivated Comments 03/23/2025 8:56 AM * Full Code Date Activated Date Inactivated Comments 05/26/2024 10:52 AM 03/23/2025 8:56 AM CPR-Full T reatment: FULL ARREST: Attempt Resuscitation/CPR wit intubation and [...] Comments 07/25/2021 8:13 AM 07/31/2021 10:47 AM Care Teams Ingot Supervisor Relationship Specialty Start Date End Date Sharon Moya MD [address] [place], [place] [id number] PCP - General Internal Medicine 09/16/21 Chapito Garcia MD [address] [id number] Consulting Physician Endocrinology 12/25/21 Radha Mac DPM #[address] [id number] Consulting Physician Podiatry 05/26/22
--- OUTSIDE RECORDS SUMMARY | 2025-04-06 15:01 | XMS_ITS | Data Portability ---
[facility] Address [address] [place] [address] Care Team Providers Care Thread Checker Name Role Phone JEMMA CAMARILLO Primary Care Provider Assessment No assessment recorded. 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 Not available Not available Lab lipid panel, serum 2024 025 [facility], [address] [facility], [facility] [address], [place], [address], 03/17/2025 08:21:56 TSH + free T4, serum 2024 025 [facility], [address] [facility], [facility] [address], [place], [address], 03/17/2025 08:21:57 CBC w/ auto diff 2024 025 [facility], [address] [facility] [address], [place], [address], 03/17/2025 08:21:57 microal bumin/c reatini ne, mass ratio, urine 2024 025 [email or web address] [facility], [address] [facility], [facility] [address], [place], [address], 04/06/2025 08:10:42 HbA1c (hemogl obin A1c), blood 2024 025 [facility] In-Office Order, Internal Use Only DO Not Attach Compendium DO Not Attach Compendium, Do Not Delete/merge, [id number] 03/16/2025 12:45:06 BMP, serum or plasma 2024 025 [facility], [address] [address], [place], [address], 03/17/2025 08:21:56 Referral home health referra l - Pt/OT please 2024 025 [facility], [address] [facility], [place], [address], 03/29/2025 09:29:57 home health referra l - PT for right shoulde r 2024 [email or web address], [address] [facility], [place], [address], 03/27/2025 08:52:13 wound care referra l - wound to right buttock mepilex bandage ordered 2024 025 [email or web address] [facility], [address] [facility] , [place], [address], 03/16/2025 10:58:20 Procedures None recorde d. Surgeries None recorde d. Imaging MAMMO, screeni ng, digital , bilater al 2024 025 [facility], [address] [facility] , [place], [address], 01/15/2025 17:14:40 Medication Orders lidocai ne 5 % topical patch 2024 025 [id number], [address] [place], [address], 03/16/2025 10:59:50 flutica sone propion ate 50 mcg/act uation nasal spray,s uspensi on 2024 025 [id number], [address] [place], [address], 12/22/2024 16:40:31 benzona franklin 100 mg capsule 2024 025 [id number] [address] [place], [address], 01/03/2025 05:02:25 tercona zole 0.4 % vaginal cream 2024 025 [id number], [address] [place], [address], 02/16/2025 15:30:54 Patient TargetsNo targets recorded. Patient Instructions Encounter Date Encounter Id Patient Instructions Last Modified By Organization Details Last Modified Time 12/22/2024 [id number] Plan of care has been discussed with [...] Prevnar 20: Due at 65. - Tdap/Td ([id number]): 02/27/17 - Zoster (>60):Due at 60. - COVID-19: 09/09/22, 09/18/21, 11/14/20, 11/05/20, 10/17/20 -Labs ordered this visit: n/a Females: Pap smear: N/A Mammogram: 12/10/23 DEXA: 11/03/23 [email or web address] Not available 01/08/2025 22:59:55 12/25/2024 [id number] advance care planning: care instructions [email or web address] Not available 12/25/2024 12:19:11 preventing falls : care instructions Not available 12/25/2024 12:19:11 Quitting Tobacco : Care Instructions Not available 12/25/2024 12:19:11 [facility] [employer] [facility] Prevent[facility] Check[facility] Not available 12/25/2024 12:19:11 eating healthy foods: care instructions [email or web address] Not available 12/25/2024 12:19:11 AD8 Dementia Screening Interview [email or web address] Not available 12/25/2024 12:19:11 advance care planning: care instructions [email or web address] Not available 01/08/2025 23:48:13 preventing falls : care instructions [email or web address] Not available 01/08/2025 23:48:13 Quitting Tobacco : Care Instructions [email or web address] Not available 01/08/2025 23:48:13 [facility] [employer] [facility] Preventive Checklist [email or web address] Not available 01/08/2025 23:48:13 eating healthy foods: care instructions [email or web address] Not available 01/08/2025 23:48:13 AD8 Dementia Screening Interview Not available 01/08/2025 23:48:13 Plan of care has been discussed with [...] Prevnar 20: Due at 65. - Tdap/Td ([id number]): 02/27/17 - Zoster (>60):Due at 60. - COVID-19: 09/09/22, 09/18/21, 11/14/20, 11/05/20, 10/17/20 -Labs ordered this visit: n/a Females: Pap smear: N/A Mammogram: 12/10/23 DEXA: 11/03/23 [email or web address] Not available 12/25/2024 12:18:23 02/16/2025 [id number] Plan of care has been discussed with [...] Prevnar 20: Due at 65. - Tdap/Td ([id number]): 02/27/17 - Zoster (>60):Due at 60. - COVID-19: 09/09/22, 09/18/21, 11/14/20, 11/05/20, 10/17/20 -Labs ordered this visit: n/a Females: Pap smear: N/A Mammogram: 12/10/23 DEXA: 11/03/23 [email or web address] Not available 02/16/2025 15:54:35 03/16/2025 [id number] Plan of care has been discussed with [...] Prevnar 20: Due at 65. - Tdap/Td ([id number]): 02/27/17 - Zoster (>60):Due at 60. - COVID-19: 09/09/22, 09/18/21, 11/14/20, 11/05/20, 10/17/20 -Labs ordered this visit: BMP, CBC, thyroid panel Females: Pap smear: N/A Mammogram: 12/10/23 DEXA: 11/03/23 [email or web address] Not available 04/04/2025 10:07:16 Reason for Referral wound to right buttock mepil ex bandage ordered Referring Physician: Family Roxann Brown, Encounter Date: 02/16/2025 Home Health Referral for Dif ficulty walking Pt/OT please Referring Physician: Family Roxann Brown, Encounter Date: 03/16/2025 Home Health Referral for Hernán n of right shoulder region PT for right shoulder Referring Physician: Family Roxann Brown, Encounter Date: 03/16/2025 Results Created Date Observation Date Name Description Value Unit Range Abnormal Flag Note LastModifiedBy Organization Detail LastModifiedTime 12/22/1912/21/2024 Hemog lobin A1c/H emogl obin. total in Blood hemoglobin A1C/hemoglob in.total in blood 8 % low: 4%high : 6% abnormal Not Available Not Available 12/22/2024 03:54:52 12/22/1912/21/2024 Hemog lobin A1c/H emogl obin. total in Blood interpretati on and review of laboratory results Abnorm al Not Available Not Available 03:54:52 02/16/2002/15/2025 CBC W Auto Diffe renti al panel - Blood leukocytes [#/volume] in blood by automated count 6.03 text: 4.00 - 12.00 10(3)/ mcL Not Available Not Available 02/16/2025 04:08:50 02/16/2002/15/2025 CBC W Auto Diffe renti al panel - Blood erythrocytes [#/volume] in blood by automated count 4.38 text: 3.80 - 5.30 10(6)/ mcL Not Available Not Available 02/16/2025 04:08:50 02/16/2002/15/2025 CBC W Auto Diffe renti al panel - Blood hemoglobin [mass/volume ] in blood 13.7 g/dL low: 12g/dL high: 15.8g/ dL Not Available Not Available 02/16/2025 04:08:50 02/16/2002/15/2025 CBC W Auto Diffe renti al panel - Blood hematocrit [volume fraction] of blood by automated count 41.7 % low: 36%hig h: 47% Not Available Not Available 02/16/2025 04:08:50 02/16/20 25 02/15/2025 CBC W Auto Diffe renti al panel - Blood MCV [entitic mean volume] in red blood cells by automated count 95.2 fL low: 82fLhi gh: 96fL Not Available Not Available 02/16/2025 04:08:50 02/16/20 25 02/15/2025 CBC W Auto Diffe renti al panel - Blood MCH [entitic mass] by automated count 31.3 pg low: 26pghi gh: 34pg Not Available Not Available 02/16/2025 04:08:50 02/16/20 25 02/15/2025 CBC W Auto Diffe renti al panel - Blood MCHC [entitic mass/volume] in red blood cells by automated count 32.9 g/dL low: 31g/dL high: 36g/dL Not Available Not Available 02/16/2025 04:08:50 02/16/20 25 02/15/2025 CBC W Auto Diffe renti al panel - Blood platelets [#/volume] in blood 86 text: 140 - 440 10(3)/ mcL low Not Available Not Available 02/16/2025 04:08:50 02/16/20 25 02/15/2025 CBC W Auto Diffe renti al panel - Blood erythrocyte [distwidth] in red blood cells by automated count 13.6 % low: 11.8%h igh: 15.5% Not Available Not Available 02/16/2025 04:08:50 02/16/20 25 02/15/2025 CBC W Auto Diffe renti al panel - Blood platelet [entitic mean volume] in blood by automated count 12.6 fL low: 9.7fLh igh: 12.4fL high Not Available Not Available 02/16/2025 04:08:50 02/16/20 25 02/15/2025 CBC W Auto Diffe renti al panel - Blood neutrophils/ leukocytes in blood by automated count 52.9 % low: 47%hig h: 73% Not Available Not Available 02/16/2025 04:08:50 02/16/20 25 02/15/2025 CBC W Auto Diffe renti al panel - Blood lymphocytes/ leukocytes in blood by automated count 33.2 % low: 18%hig h: 42% Not Available Not Available 02/16/2025 04:08:50 02/16/20 25 02/15/2025 CBC W Auto Diffe renti al panel - Blood monocytes/le ukocytes in blood by automated count 11.3 % low: 4%high : 12% Not Available Not Available 02/16/2025 04:08:50 02/16/20 25 02/15/2025 CBC W Auto Diffe renti al panel - Blood eosinophils/ leukocytes in blood by automated count 0.7 % low: 0%high : 5% Not Available Not Available 02/16/2025 04:08:50 02/16/2002/15/2025 CBC W Auto Diffe renti al panel - Blood basophils/le ukocytes in blood by automated count 0.7 % low: 0%high : 1% Not Available Not Available 02/16/2025 04:08:50 02/16/20 25 02/15/2025 CBC W Auto Diffe renti al panel - Blood immature granulocyte 1.2 % low: 0%high : 0.4% high Immat ure Granu locyt es inclu chasidy Metam yeloc ytes, Myelo cytes , and Promy elocy chikis. Not Available Not Available 02/16/2025 04:08:50 02/16/20 25 02/15/2025 CBC W Auto Diffe renti al panel - Blood neutrophils [#/volume] in blood by automated count 3.2 text: 1.60 - 7.70 10(3)/ mcL Not Available Not Available 02/16/2025 04:08:50 02/16/20 25 02/15/2025 CBC W Auto Diffe renti al panel - Blood lymphocytes [#/volume] in blood by automated count 2 text: 1.30 - 3.20 10(3)/ mcL Not Available Not Available 02/16/2025 04:08:50 02/16/20 25 02/15/2025 CBC W Auto Diffe renti al panel - Blood monocytes [#/volume] in blood by automated count 0.68 text: 0.20 - 1.00 10(3)/ mcL Not Available Not Available 02/16/2025 04:08:50 02/16/20 25 02/15/2025 CBC W Auto Diffe renti al panel - Blood eosinophils [#/volume] in blood by automated count 0.04 text: 0.00 - 0.40 10(3)/ mcL Not Available Not Available 02/16/2025 04:08:50 02/16/20 25 02/15/2025 CBC W Auto Diffe renti al panel - Blood basophils [#/volume] in blood by automated count 0.04 text: 0.00 - 0.10 10(3)/ mcL Not Available Not Available 02/16/2025 04:08:50 02/16/20 25 02/15/2025 CBC W Auto Diffe renti al panel - Blood absolute immature granulocyte 0.07 text: 0.00 - 0.03 10 (3) mcL. high Not Available Not Available 02/16/2025 04:08:50 02/16/20 25 02/15/2025 CBC W Auto Diffe renti al panel - Blood nucleated erythrocytes /leukocytes [ratio] in blood 0 Not Available Not Available 02/2025 04:08:50 02/16/20 25 02/15/2025 CBC W Auto Diffe renti al panel - Blood interpretati on and review of laboratory results Abnorm al Not Available Not Available 04:08:50 02/16/20 25 02/15/2025 Magne sium [Mass /volu me] in Serum or Plasm a magnesium [mass/volume ] in serum or plasma 2.3 mg/dL low: 1.6mg/ dLhigh : 2.6mg/ dL Not Available Not Available 02/16/2025 04:08:49 02/16/20 25 02/15/2025 Magne sium [Mass /volu me] in Serum or Plasm a interpretati on and review of laboratory results Normal Not Available Not Available 02/2025 04:08:49 02/16/20 25 02/15/2025 Compr ehens arleth metab olic 2000 panel - Serum or Plasm a sodium [moles/volum e] in serum or plasma 141 mmol/ L low: 136mmo l/Lhig h: 145mmo l/L Not Available Not Available 02/16/2025 04:08:49 02/16/20 25 02/15/2025 Compr ehens arleth metab olic 1999 panel - Serum or Plasm a potassium [moles/volum e] in serum or plasma 4.6 mmol/ L low: 3.5mmo l/Lhig h: 5.1mmo l/L Not Available Not Available 02/16/2025 04:08:49 02/16/20 25 02/15/2025 Compr ehens arleth metab olic 1999 panel - Serum or Plasm a chloride [moles/volum e] in serum or plasma 106 mmol/ L low: 98mmol /Lhigh : 107mmo l/L Not Available Not Available 02/16/2025 04:08:49 02/16/20 25 02/15/2025 Compr ehens arleth metab olic 2000 panel - Serum or Plasm a carbon dioxide, total [moles/volum e] in serum or plasma 26 mmol/ L low: 22mmol /Lhigh : 30mmol /L Not Available Not Available 02/16/2025 04:08:49 02/16/20 25 02/15/2025 Compr ehens arleth metab olic 2000 panel - Serum or Plasm a anion gap in serum or plasma by calculation 13.6 mmol/ L high: 18mmol /L Not Available Not Available 02/16/2025 04:08:49 02/16/20 25 02/15/2025 Compr [employer] arleth metab olic 1999 panel - Serum or Plasm a glucose [mass/volume ] in serum or plasma 240 mg/dL low: 70mg/d Lhigh: 99mg/d L high Not Available Not Available 02/16/2025 04:08:49 02/16/20 25 02/15/2025 Compr ehens arleth metab olic 1999 panel - Serum or Plasm a urea nitrogen [mass/volume ] in serum or plasma 43 mg/dL low: 10mg/d Lhigh: 20mg/d L high Not Available Not Available 02/16/2025 04:08:49 02/16/20 25 02/15/2025 Compr ehens arleth metab olic 2000 panel - Serum or Plasm a creatinine [mass/volume ] in serum or plasma 1.68 mg/dL low: 0.6mg/ dLhigh : 1mg/dL high Not Available Not Available 02/16/2025 04:08:49 02/16/20 25 02/15/2025 [facility] [employer] [facility] 1999 panel - Serum or Plasm a urea nitrogen/cre atinine [mass ratio] in serum or plasma 26 text: 12 - 20 ratio high Not Available Not Available 02/16/2025 04:08:49 02/16/20 25 02/15/2025 [facility] [employer] [facility] 1999 panel - Serum or Plasm a protein [mass/volume ] in serum or plasma 6.6 g/dL low: 6g/dLh igh: 8g/dL Not Available Not Available 02/16/2025 04:08:49 02/16/20 25 02/15/2025 [facility] [employer] 2000 panel - Serum or Plasm a albumin [mass/volume ] in serum or plasma 3.9 g/dL low: 3.5g/d Lhigh: 5g/dL Not Available Not Available 02/16/2025 04:08:49 02/16/20 25 02/15/2025 [facility] [employer] [facility] 2000 panel - Serum or Plasm a albumin/glob ulin [mass ratio] in serum or plasma 1.4 low: 1high: 2.2 Not Available Not Available 02/16/2025 04:08:49 02/16/20 25 02/15/2025 [facility] [employer] [facility] 2000 panel - Serum or Plasm a calcium [mass/volume ] in serum or plasma 9.1 mg/dL low: 8.7mg/ dLhigh : 10.5mg /dL Not Available Not Available 02/16/2025 04:08:49 02/16/20 25 02/15/2025 [facility] [employer] 2000 panel - Serum or Plasm a bilirubin.to loy [mass/volume ] in serum or plasma 0.3 mg/dL low: 0.2mg/ dLhigh : 1.2mg/ dL Not Available Not Available 02/16/2025 04:08:49 02/16/20 25 02/15/2025 [facility] [employer] ol 2000 panel - Serum or Plasm a aspartate aminotransfe rase [enzymatic activity/vol ume] in serum or plasma 18 U/L high: 43U/L Not Available Not Available 02/16/2025 04:08:49 02/16/20 25 02/15/2025 Compr ehens arleth metab olic 1999 panel - Serum or Plasm a alanine aminotransfe rase [enzymatic activity/vol ume] in serum or plasma 12 U/L high: 56U/L Not Available Not Available 02/16/2025 04:08:49 02/16/20 25 02/15/2025 Compr ehens arleth metab olic 1999 panel - Serum or Plasm a alkaline phosphatase [enzymatic activity/vol ume] in serum or plasma 47 U/L low: 40U/Lh igh: 150U/L Not Available Not Available 02/16/2025 04:08:49 02/16/20 25 02/15/2025 Compr ehens arleth metab olic 2000 panel - Serum or Plasm a glomerular filtration rate [volume rate/area] in serum, plasma or blood by creatinine-b ased formula (CKD-epi 2020)/1.73 sq M 34 low: 60 low Creat inine Clear ance is the prefe rred crite [place] for selec ting drug dose adjus tment s in renal ly impai red patie nts. The GFR is provi ded as addit ional perti nent clini marylu infor matio n. GFR is repor liliam in mL/mi n/1.7 3 sq m. Calcu latio n based on the Chron ic Kidne y Disea se Epide miolo gy Colla borat ion (CKD- EPI) equat ion refit witho ut adjus tment for race. Not Available Not Available 02/16/2025 04:08:49 02/16/2002/15/2025 Compr ehens arleth metab olic 1999 panel - Serum or Plasm a glomerular filtration rate [volume rate/area] in serum, plasma or blood by creatinine-b ased formula (MDRD)/1.73 sq M among black population 37 low: 60 low Not Available Not Available 02/16/2025 04:08:49 02/16/20 25 02/15/2025 Compr ehens arleth metab olic 2000 panel - Serum or Plasm a glomerular filtration rate [volume rate/area] in serum, plasma or blood by creatinine-b ased formula (MDRD)/1.73 sq M among non black population 31 low: 60 low Not Available Not Available 02/16/2025 04:08:49 02/16/2002/15/2025 Compr ehens arleth metab olic 2000 panel - Serum or Plasm a interpretati on and review of laboratory results Abnorm al Not Available Not Available 04:08:49 02/16/20 25 02/15/2025 Gluco se [Mass /volu me] in Blood glucose [mass/volume ] in blood 215 mg/dL low: 70mg/d Lhigh: 99mg/d L high Patie nt RN Perfo rmed Not Available Not Available 02/16/2025 04:08:49 02/16/2002/15/2025 Gluco se [Mass /volu me] in Blood interpretati on and review of laboratory results Abnorm al Not Available Not Available 04:08:49 03/16/20 25 03/17/2025 LIPID PANEL cholesterol, total 197 mg/dL 100-19 9 Not Available [facility] ([facility]) [address] [place], [address], 03/17/2025 08:21:56 03/16/20 25 03/17/2025 LIPID PANEL triglyceride s 82 mg/dL 0-149 Not Available [facility] ([facility]) [address] [place], [address], 03/17/2025 08:21:56 03/16/20 25 03/17/2025 LIPID PANEL HDL cholesterol 68 mg/dL >39 Not Available [facility] ([facility]) [address] [place], [address], 03/17/2025 08:21:56 03/16/20 25 03/17/2025 LIPID PANEL VLDL cholesterol marylu 15 mg/dL 5-40 Not Available [facility] ([facility]) [address] [place], [address], 03/17/2025 08:21:56 03/16/20 25 03/17/2025 LIPID PANEL LDL chol calc ([facility]) 114 mg/dL 0-99 above high normal Not Available [facility] ([facility]) [address] [place], [address], 03/17/2025 08:21:56 03/16/20 25 03/17/2025 BMP7+ EGFR glucose 65 mg/dL 70-99 below low normal Not Available [facility] ([facility]) [address] [place], [address], 03/17/2025 08:21:56 03/16/20 25 03/17/2025 BMP7+ EGFR BUN 40 mg/dL 8-27 above high normal Not Available [facility] ([facility]) [address] [place], [address], 03/17/2025 08:21:56 03/16/20 25 03/17/2025 BMP7+ EGFR creatinine 1.39 mg/dL 0.57-1 .00 above high normal Not Available [facility] ([facility]) [address] [place], [address], 03/17/2025 08:21:56 03/16/20 25 03/17/2025 BMP7+ EGFR eGFR 42 mL/mi n/1.7 3 >59 below low normal Not Available [facility] ([facility]) [address] [place], [address], 03/17/2025 08:21:56 03/16/20 25 03/17/2025 BMP7+ EGFR sodium 142 mmol/ L 134-14 4 Not Available [facility] ([facility]) [address] [place], [address], 03/17/2025 08:21:56 03/16/20 25 03/17/2025 BMP7+ EGFR potassium 4.6 mmol/ L 3.5-5. 2 Not Available [facility] ([facility]) [address] [place], [address], 03/17/2025 08:21:56 03/16/20 25 03/17/2025 BMP7+ EGFR chloride 105 mmol/ L 96-106 Not Available [facility] ([facility]) [address] [facility], [place], [address], 03/17/2025 08:21:56 03/16/20 25 03/17/2025 BMP7+ EGFR carbon dioxide, total 21 mmol/ L 20-29 Not Available [facility] ([facility]) [address] [facility], [place], [address], 03/17/2025 08:21:56 03/16/20 25 03/17/2025 CBC WITH DIFFE RENTI AL/PL ATELE T WBC 7.2 x10e3 /uL 3.4-10 .8 Not Available [facility] ([facility]) [address] [facility], [place], [address], 03/17/2025 08:21:57 03/16/20 25 03/17/2025 CBC WITH DIFFE RENTI AL/PL ATELE T RBC 4.33 x10e6 /uL 3.77-5 .28 Not Available [facility] ([facility]) [address] [facility], [place], [address], 03/17/2025 08:21:57 03/16/20 25 03/17/2025 CBC WITH DIFFE RENTI AL/PL ATELE T hemoglobin 13.5 g/dL 11.1-1 5.9 Not Available [facility] ([facility]) [address] [facility], [place], [address], 03/17/2025 08:21:57 03/16/20 25 03/17/2025 CBC WITH DIFFE RENTI AL/PL ATELE T hematocrit 42.2 % 34.0-4 6.6 Not Available [facility] ([facility]) [address] [facility], [place], [address], 03/17/2025 08:21:57 0903/17/2025 CBC WITH DIFFE RENTI AL/PL ATELE T MCV 98 fL 79-97 above high normal Not Available [facility] ([facility]) [address] [facility], [place], [address], 03/17/2025 08:21:57 03/16/20 25 03/17/2025 CBC WITH DIFFE RENTI AL/PL ATELE T MCH 31.2 pg 26.6-3 3.0 Not Available [facility] ([facility]) [address] [facility], [place], [address], 03/17/2025 08:21:57 03/16/2003/17/2025 CBC WITH DIFFE RENTI AL/PL ATELE T MCHC 32.0 g/dL 31.5-3 5.7 Not Available [facility] ([facility]) [address] [place], [address], 03/17/2025 08:21:57 03/16/2003/17/2025 CBC WITH DIFFE RENTI AL/PL ATELE T RDW 13.8 % 11.7-1 5.4 Not Available [facility] ([facility]) [address] [facility], [place], [address], 03/17/2025 08:21:57 03/16/2003/17/2025 CBC WITH DIFFE RENTI AL/PL ATELE T platelets 111 x10e3 /uL 150-45 0 below low normal Not Available [facility] ([facility]) [address] [facility], [place], [address], 03/17/2025 08:21:57 03/16/2003/17/2025 CBC WITH DIFFE RENTI AL/PL ATELE T neutrophils 45 % notest ab. Not Available [facility] ([facility]) [address] [facility], [place], [address], 03/17/2025 08:21:57 03/16/20 25 03/17/2025 CBC WITH DIFFE RENTI AL/PL ATELE T lymphs 39 % notest ab. Not Available [facility] ([facility]) [address] [facility], [place], [address], 03/17/2025 08:21:57 03/16/20 25 03/17/2025 CBC WITH DIFFE RENTI AL/PL ATELE T monocytes 13 % notest ab. Not Available [facility] ([facility]) [address] [facility], [place], [address], 03/17/2025 08:21:57 03/16/20 25 03/17/2025 CBC WITH DIFFE RENTI AL/PL ATELE T eos 1 % notest ab. Not Available [facility] ([facility]) [address] [facility], [place], [address], 03/17/2025 08:21:57 03/16/20 25 03/17/2025 CBC WITH DIFFE RENTI AL/PL ATELE T basos 1 % notest ab. Not Available [facility] ([facility]) [address] [facility], [place], [address], 03/17/2025 08:21:57 03/16/20 25 03/17/2025 CBC WITH DIFFE RENTI AL/PL ATELE T neutrophils (absolute) 3.3 x10e3 /uL 1.4-7. 0 Not Available [facility] ([facility]) [address] [place], [address], 03/17/2025 08:21:57 03/16/20 25 03/17/2025 CBC WITH DIFFE RENTI AL/PL ATELE T lymphs (absolute) 2.8 x10e3 /uL 0.7-3. 1 Not Available [facility] ([facility]) [address] [facility], [place], [address], 03/17/2025 08:21:57 03/16/20 25 03/17/2025 CBC WITH DIFFE RENTI AL/PL ATELE T monocytes(ab solute) 0.9 x10e3 /uL 0.1-0. 9 Not Available [facility] ([facility]) [address] [place], [address], 03/17/2025 08:21:57 03/16/20 25 03/17/2025 CBC WITH DIFFE RENTI AL/PL ATELE T eos (absolute) 0.1 x10e3 /uL 0.0-0. 4 Not Available [facility] ([facility]) [address] [facility], [place], [address], 03/17/2025 08:21:57 03/16/20 25 03/17/2025 CBC WITH DIFFE RENTI AL/PL ATELE T baso (absolute) 0.1 x10e3 /uL 0.0-0. 2 Not Available [facility] ([facility]) [address] [place], [address], 03/17/2025 08:21:57 03/16/20 25 03/17/2025 CBC WITH DIFFE RENTI AL/PL ATELE T immature granulocytes 1 % notest ab. Not Available [facility] ([facility]) [address] [place], [address], 03/17/2025 08:21:57 03/16/20 25 03/17/2025 CBC WITH DIFFE RENTI AL/PL ATELE T immature grans (abs) 0.1 x10e3 /uL 0.0-0. 1 Not Available [facility] ([facility]) [address] [place], [address], 03/17/2025 08:21:57 03/16/20 25 03/17/2025 T4 AND TSH TSH 5.390 uIU/m L 0.450- 4.500 above high normal Not Available [facility] ([facility]) [address] [place], [address], 03/17/2025 08:21:57 03/16/20 25 03/17/2025 T4 AND TSH thyroxine (T4) 7.7 ug/dL 4.5-12 .0 Not Available [facility] ([facility]) [address] [facility], [place], [address], 03/17/2025 08:21:57 03/16/20 25 03/16/2025 HbA1c (hemo globi n A1c), blood HbA1C 8.5 % Not Available In-Office Order Internal Use Only DO Not Attach Compendium DO Not Attach Compendium, Do Not Delete/merge, [id number] 03/16/2025 10:51:53 03/29/20 25 03/29/2025 HbA1c (hemo globi n A1c), blood HbA1C (hemoglobin A1C), blood 8.3 % low: 4%high : 6% abnormal Not Available Not Available 04/03/2025 12:32:40 03/29/20 25 03/29/2025 HbA1c (hemo globi n A1c), blood lab interpretati on Abnorm al Not Available Not Available 12:32:40 01/16/20 25 01/15/2025 MAMMO , scree angi, digit al, bilat eral No observ ation record ed. [address] [place], [address], 01/17/2025 14:11:28 03/14/20 25 02/27/2025 XR, chest , 2 view No observ ation record ed. [address] [place], [address], 03/20/2025 14:51:09 Result Notes None recorded. Problems Name Problem SNOMED Code Status Onset Date Resolution Date Notes Provider Name and Address Organization Details Recorded Time Type 2 diabetes mellitus 41697159 Active sees endo -Dr.Tae Nona [place], [place] - COUNTS INCLUDE 234 BEDS AT [facility] 4 15:56:47 Urinary incontine nce 519383659 Active sees urologist [place], [place] [facility] 4 15:56:47 Essential hypertens ion 08037485 Active 2021 Nona Higgenbot ham [place], [place] [facility] 4 15:56:47 Hypothyro idism 43729902 Active 2021 Nona Oharabot [place] [facility] 4 15:56:47 Chronic obstructi ve pulmonary disease 95479323 Active 2021 sees pulmo Nona Jayesht [place] [facility] 4 15:56:47 Hyperlipi demia 17753010 Active 2021 Nona Higgenbot [place] [facility] 4 15:56:47 Chronic renal failure 41295671 Active 2021 sees nephro/Dr Choi Nona Bejaranogenbot [place] [facility] 4 15:56:47 Bipolar disorder 03989705 Active 2021 with PTSD-sees Dr.Habib Castellano Carleegenbot [place] [facility] 4 15:56:47 Hydroceph alus 827412801 Active 2021 s/p shunt 2015- sees neurologi st Nona Oharabot [place] [facility] 4 15:56:47 Bilateral arthritis of knees 658240283297 9108 Active 2021 with back pain /chronic pain Nona Higgenbot [place] [facility] 4 15:56:47 Osteoporo sis 08476796 Active 2021 dexa- 11/02 Sharon Moya MD Attn: Yariel rockwell,[address] [place], [address] , [place] - [facility] 4 14:15:16 Calcifica tion of coronary artery 592157470 Active [address] done by [facility] showed extensive calcifica tion-sees cardio Nona Maydabot [place] [facility] 4 15:56:47 Occult blood detected in feces 93388423 Active 2021 seen by GI [place] [facility] 4 15:56:47 Rheumatoi d factor detected 088044494 Active 2022 referred to rheumat- has apt in 07/2024 N[place] [facility] 4 15:56:47 Atrophic vaginitis 04946559 Active 2023 NONA JACKSON MD Attn: Yariel rockwell,[address] [facility], [place], [address], [place] [facility] 4 11:31:18 Recurrent urinary tract infection 822342948 Active 2023 NONA JACKSON MD Attn: Yariel rockwell,[address] 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, [place], [address], [place] [facility] 4 12:36:10 Notes:Some problems listed i n Documents: #[id number], #[id number], #[id number] could not be added to this patient's chart. Please review these documents and add these problems to the patient's chart manually as needed. Problem Notes None recorded. Procedures Surgical History Date Name Laterality Status Provider Name and Address Organization Details Recorded Time 01/16/20 25 Date of Last Mammogram completed Juani Toure [place] 02/16/2025 15:30:56 07/12/18 92 Total hysterectomy completed Eren Reardon [place] [facility] 10/19/2016 14:26:01 07/12/18 82 Cholecystectomy completed Eren Reardon [place] [facility] 10/19/2016 14:26:17 07/12/18 76 Appendectomy completed Eren Reardon [place] [facility] 10/19/2016 14:25:41 Imaging Results None recorded. Procedure Notes None recorded. Medical Equipment None Reported. Allergies Allergen ID Allergen Name Allergen Category Reaction Reaction Severity Criticality Documentation Date Start Date Code Code System Note Provider Name and Address Organization Details Recorded Time 6565 Demerol medicatio n Not available Not available Not available 06/18/2014 66899 1 RxNorm JACK Rivas, [place] - [facility] 4 14:55:49 6566 Tegretol medicatio n Not available Not available Not available 06/18/2014 9 RxNorm JACK R[place], [place] - [facility] 4 14:55:49 94516 Product containin g glucocort icoid (product) medicatio n vomiting Not available Not available 10/19/2016 90987 6006 SNOMED Eren Reardon [place] null, [place] - [facility] 7 14:24:36 Medications Name Sig Start Date Stop Date Status Note LastModified by Organization Details LastModified Time comfort ez mis [id number] 08/11 completed Not Available Not Available Not [...] 1 TABLET BY MOUTH TWICE DAILY active takes 1 tablet once a day Not Available Not Available Not Available atorvasta tin 40 mg tablet TAKE 1 TABLET BY [...] FOR 7 DAYS, FOR YEAST INFECTIO N. 02/16 completed Not Available Not Available Not Available primidone 50 mg tablet TAKE ONE (1) TABLET BY MOUTH TWICE DAILY active Not [...] atorvasta tin 20 mg tablet TAKE 1 TABLET BY MOUTH DAILY active Not Available Not Available No t Available sulfasala zine 500 mg tablet TAKE ONE (1) TABLET BY MOUTH TWICE DAILY active Not [...] completed Not Available Not Available Not Available phenazopy ridine 200 mg tablet Take 1 tablet every day by oral route as needed. 08/07 completed Not Available Not Available Not Available famotidin e 40 mg tablet TAKE 1 TABLET BY MOUTH AT BEDTIME active Not Available Not Available No t Available prednison e 20 mg tablet 08/07 completed Not Available Not Available Not Available alendrona te 70 mg tablet TAKE 1 TABLET BY MOUTH EVERY WEEK IN THE MORNING AT LEAST 30 MINUTES BEFORE FOOD active Not Available Not Available No t Available dexametha sone 6 mg tablet 08/07 completed [...] tablet TAKE 1 TABLET BY MOUTH DAILY active Not Available Not Available No t Available trimethop rim 100 mg tablet TAKE 1 TABLET BY MOUTH DAILY active Not Available Not Available No t Available divalproe x 500 mg tablet,de layed release TAKE 2 TABLETS BY MOUTH TWICE DAILY active Not Available [...] MG OF VITAMIN C WITH EACH DOSE 03/16 completed Not Available Not Available Not Available amoxicill in 875 mg tablet TAKE 1 TABLET BY MOUTH TWICE A DAY 03/02 completed Not Available Not Available Not Available citalopra m 20 mg tablet TAKE 1 TABLET BY MOUTH ONCE DAILY active Not Available Not Available No t Available potassium chloride ER 20 mEq tablet,ex tended release(p art/cryst ) 08/22 completed Not Available Not Available Not Available lorazepam 0.5 mg tablet 08/07 completed Not Available Not Available Not Available tamsulosi n 0.4 mg capsule TAKE 1 CAPSULE BY MOUTH TWICE DAILY active Not Available Not Available No t Available dicyclomi ne 20 mg tablet 08/07 completed Not Available Not Available Not Available baclofen 10 mg tablet 08/11 completed Not Available Not Available Not Available benzonata te 100 mg capsule Take 1 capsule 3 times a day by oral route as needed for 5 days, for cough. 01/03 completed Not Available Not Available Not Available cephalexi n 500 mg capsule TAKE 1 CAPSULE BY MOUTH FOUR TIMES DAILY FOR 7 DAYS 03/16 completed Not Available Not Available Not Available [...] completed Not Available Not Available Not Available lidocaine 5 % topical patch APPLY 1 PATCH BY TOPICAL ROUTE ONCE DAILY (MAY WEAR UP TO 12HOURS. ) active Not Available Not Available No t Available Cranberry Concentra te 140 mg-100 mg capsule TAKE 1 BY ORAL ROUTE ONCE 08/07 completed Not Available Not Available Not Available levothyro xine 150 mcg tablet TAKE 1 TABLET BY MOUTH EVERY MORNING ON AN EMPTY STOMACH active Not Available Not Available No t Available diclofena c potassium 50 mg tablet Take [...] Available hydroxyzi ne HCl 25 mg tablet TAKE 1 TABLET BY MOUTH EVERY NIGHT NEEDED active Not Available Not Available No t Available pravastat in 20 mg tablet 08/07 completed Not Available Not Available Not Available mupirocin 2 % topical ointment APPLY TO AFFECTED AREA 3 TIMES A DAY 06/25 completed Not Available Not Available Not Available furosemid e 20 mg tablet Take 1 tablet by oral route every day 08/07 completed Not Available Not Available Not Available insulin lispro (U-100) 100 unit/mL subcutane ous solution INJECT 14 UNITS SUBCUTAN EOUSLY AT BREAKFAS T, 10U AT LUNCH, & 14U AT DINNER; CORRECTI ONAL FACTOR INSULIN OF 1:30 IF>140 MG/DL, UP TO 60U A DAY 03/16 completed Not Available Not Available Not Available hydroxych loroquine 200 mg tablet 09/22 completed Not Available Not Available Not Available levofloxa shobha 500 mg tablet TAKE 1 TABLET BY MOUTH EVERY DAY 08/07 completed Not Available Not Available Not Available estradiol 0.01% (0.1 mg/gram) vaginal cream APPLY 1 GRAM TO VAGINA EVERY WEDNESDAY, Y & WEDNESDAY active Not Available Not Available No [...] mcg/actua tion nasal spray,kaleb pension INSTILL 2 SPRAYS IN EACH NOSTRIL ONCE DAILY NEEDED active Not Available Not Available No t Available lisinopri l 2.5 mg tablet 08/22 completed Not Available Not Available Not Available doxycycli ne hyclate 100 mg tablet TAKE 1 TABLET BY MOUTH TWICE DAILY FOR 5 DAYS 02/16 completed complete Not Available Not Available Not Available ipratropi um bromide 21 mcg (0.03 %) nasal spray ADMINIST ER 2 SPRAYS INTO EACH NOSTRIL EVERY 12 HOURS. 03/16 completed Not Available Not Available Not Available loratadin e 10 mg tablet TAKE 1 TABLET BY MOUTH DAILY 03/16 completed Not Available Not Available Not Available risperido ne 0.5 mg tablet TAKE 1 TABLET BY MOUTH ONCE DAILY AT BEDTIME active Not Available Not Available No t Available amoxicill in 875 mg-potass ium clavulana te 125 mg tablet TAKE 1 TABLET BY MOUTH EVERY 12 HOURS FOR 7 DAYS 12/25 completed Not Available Not Available Not Available amoxicill in 500 mg-potass ium clavulana te 125 mg tablet TAKE 1 TABLET BY MOUTH TWICE A DAY 02/16 completed Not Available Not Available Not Available buspirone 15 mg tablet TAKE 1 TABLET BY MOUTH 3 TIMES DAILY active Not Available Not Available No t Available insulin lispro (U-100) 100 unit/mL subcutane ous pen INJECT 14-10-14 UNITS SUBCUTAN EOUSLY BEFORE EACH MEAL + CORRECTI ONAL FACTOR INSULIN (MAX 50 UNITS PER DAY) active Not Available Not Available No t Available Restasis 0.05 % eye drops in a dropperet te INSTILL 1 DROP IN EACH EYE TWICE DAILY active Not Available Not Available [...] ntoin monohydra te/macroc rystals 100 mg capsule 1 CAPSULE 2 TIMES PER DAY MUST ADMINIST ER WITH A MEAL/REJI D 02/16 completed Not Available Not Available Not Available [...] unit/mL (3 mL) subcutane ous pen INJECT 12 UNITS SUBCUTAN EOUSLY NIGHTLY active Not Available [...] Not Available Not Available Not Avai lable Myrbetriq 50 mg tablet,ex tended release 08/07 completed Not Available Not Available Not Available Spiriva Respimat 2.5 mcg/actua tion solution for inhalatio n 11/04 completed Not Available Not Available Not Available Yuvafem 10 mcg vaginal tablet INSERT 1 TABLET VAGINALL Y TWICE A WEEK 11/24 completed Not Available Not Available Not Available Linzess 72 mcg capsule TAKE 1 CAPSULE BY MOUTH EVERY DAY 03/16 completed Not Available Not Available Not Available Accu-Chek Guide test strips USE TO TEST BLOOD SUGAR FOUR TIMES A DAY active Not Available Not Available No t Available Trelegy Ellipta 100 mcg-62.5 mcg-25 mcg powder for inhalatio n INHALE 1 PUFF BY MOUTH DAILY active Not Available Not Available No t Available Imvexxy Maintenan ce Pack 4 mcg vaginal insert 02/16 completed Not Available Not Available Not Available Accu-Chek Guide Me Glucose Meter USE TO TEST BLOOD SUGAR 3 TIMES DAILY active Not Available Not Available No t Available OneTouch Delica Plus Lancet 33 gauge USE TO TEST BLOOD SUGAR 3 OR 4 TIMES DAILY active Not Available Not Available [...] completed Not Available Not Available Not Available Akanksha 2nd Gen Pen Needle 32 gauge x 5/32 USE 1 PEN NEEDLE FOUR TIMES A DAY.USE TO INJECT INSULIN FOUR TIMES A DAY active Not Available Not Available No t Available Vitals Date Recorded Body height Body mass index (BMI) Body weight Oxygen saturation Oxygen saturation in Arterial blood by Pulse oximetry Heart rate Body temperature Systolic And Diastolic Provider Name and Address Organization Details Last Updated DateTime 5 175.26 cm 30.2 kg/m2 36054.2 4 g 96 % 96 % 83 /min 96.8 [degF] 147/80 mm[Hg] Juani [facility] 5 11:10:28 Date Recorded Body height Body temperature Oxygen saturation Oxygen saturation in Arterial blood by Pulse oximetry Heart rate Body mass index (BMI) Body weight Respiratory rate Systolic And Diastolic Provider Name and Address Organization Details Last Updated DateTime 5 175.26 cm 97.1 [degF] 97 % 97 % 82 /min 27.3 kg/m2 98197.5 9 g 16 /min 135/80 mm[Hg] Yanira Lo MA [facility] 5 16:02:52 Date Recorded Body height Body mass index (BMI) Body weight Oxygen saturation Oxygen saturation in Arterial blood by Pulse oximetry Heart rate Respiratory rate Body temperature Systolic And Diastolic Provider Name and Address Organization Details Last Updated DateTime 5 175.26 cm 29.1 kg/m2 46210.4 2 g 95 % 95 % 69 /min 16 /min 97.2 [degF] 102/66 mm[Hg] Bouchra Gaytan MA [facility] 5 12:10:56 Date Recorded Body height Oxygen saturation Oxygen saturation in Arterial blood by Pulse oximetry Heart rate Body temperature Systolic And Diastolic Provider Name and Address Organization Details Last Updated DateTime 5 175.26 cm 95 % 95 % 71 /min 97.7 [degF] 131/74 mm[Hg] Juani [facility] 5 15:25:07 Date Recorded Body height Respiratory rate Oxygen saturation Oxygen saturation in Arterial blood by Pulse oximetry Heart rate Body temperature Systolic And Diastolic Provider Name and Address Organization Details Last Updated DateTime 5 175.26 cm 16 /min 96 % 96 % 66 /min 98 [degF] 124/66 mm[Hg] RADHA Yoon [facility] 5 10:37:54 Social History Question Answer Notes LastModified by Organizat ion Details LastModified Time Tobacco Smoking Status Former Smoker cigarettes Bouchra JACK Gaytan [facility] [place], [place] - [facility] 08/07/2021 10:38:06 Are You Blind Or Do You Have Difficulty Seeing? Yes Glasses Information not available 08/07/2021 What Is Your Level Of Caffeine Consumption? Heavy Pepsi Information not available 03/16/2025 In The 14 Days Before Symptom Onset, Have You Had Close Contact With A Laboratory-confir med COVID-19 While That Case Was Ill? No Information not available 08/07/2021 In The 14 Days Before Symptom Onset, Have You Had Close Contact With A Person Who Is Under Investigation For COVID-19 While That Person Was Ill? No Information not available 08/07/2021 Have You Been To An Area Known To Be High Risk For COVID-19? No Lives In Prison Information not available 09/17/2021 Are You Deaf Or Do You Have Serious Difficulty Hearing? Yes Both Ears Information not available 08/07/2021 What Type Of Diet Are You Following? REGULAR Low Carb [email or web address] Information not available 08/22/2021 What Is The Highest Grade Or Level Of School You Have Completed Or The Highest Degree You Have Received? [id number] Information not available 08/07/2021 Are There Any Guns Present In Your Home? No Information not available 08/07/2021 What Was The Date Of Your Most Recent Tobacco Screening? 03/16/2025 Information not available 03/16/2025 What Is Your Relationship Status? Information not [...] Many Years Have You Smoked Tobacco? 20 [id number] Information not available 05/14/2020 Sex: Female Functional Status Question Answer Note LastModified by Organization Details LastModified Time Do you use any illicit or recreational drugs? No Information not available 08/07/2021 Do you or have you ever used any other forms of tobacco or nicotine? No Information not available 08/07/2021 What is your level of alcohol consumption? None [id number] Information not available 05/14/2020 Are you currently employed? No disabled Information not available 08/07/2021 Are you able to care for yourself independently ? No gets assiatance Information not available 08/07/2021 What is your exercise level? None Information not available 08/07/2021 What type of noise exposure are you exposed to? noExposureToExcessiveN oise [email or web address] Information not available 07/20/2023 Mental Status Question Answer Note LastModified by Organization D etails LastModified Time Do you feel stressed (tense, restless, nervous, or anxious, or unable to sleep at night)? [id number] Information not available 03/16/2025 Family History Relationship Description Onset Age of [...] Atrial Fibrillation N High Blood Pressure Y Kidney or Bladder Problems Y Thyroid Problems Y GI Problems Y Depression N COPD Y Blood Clots N Skin Problems N Anemia N Heart Attack ([place]) N Anxiety Disorder Y Diabetes Y Muscle, Joint, or Bone Problems Y Seizures/Epilepsy Y Acid Reflux (GERD) N Cancer N Stroke N Asthma N Allergies Y High Cholesterol N Hepatitis N Liver Disease N Headaches N Heart Failure N Osteoporosis N Gynecological History Statement/Question Response Current Control Method Hysterectom y Date of Last Mammogram 01/15/2025 Date of LMP Obstetrics History GPAL:G 0 P 0 0 0 0 Type Value Induced 0 Spontaneous 0 Total 0 Immunizations Vaccine Type Date Status Note Provider Nam e and Address Organization Details Recorded Time COVID-19, mRNA, LNP-S, PF, 100 mcg/0.5mL dose or 50 mcg/0.25mL dose 1 completed NONA JACKSON MD Attn: Accounting[address] [place], [address], [facility] - [facility] 11/18/2023 11:09:36 COVID-19, mRNA, LNP-S, PF, 100 mcg/0.5mL dose or 50 mcg/0.25mL dose 1 completed NONA JACKSON MD Attn: [address] [place], [address], [place] [facility] 11/18/2023 11:09:36 Influenza, split virus, quadrivalent, preservative 1 completed NONA JACKSON MD Attn: [address] [place], [place], [address] [place] [address], [facility] - [facility] 11/18/2023 11:13:35 Influenza, split virus, quadrivalent, preservative 0 completed NONA JACKSON MD Attn: Accounting,[address] [facility], [place], [place], [address] [place] [address], [place] [facility] 11/18/2023 11:09:36 Influenza, split virus, quadrivalent, preservative 9 completed NONA JACKSON MD Attn: Accounting,[address] [facility], [place], [place], [address] [place] [address], [facility] - [facility] 11/18/2023 11:09:36 Influenza, adjuvanted, trivalent, PF 9 completed NONA JACKSON MD Attn: Accounting,[address] [facility], [place], [address] [place] [address], [facility] - [facility] 11/18/2023 11:09:36 SARS-COV-2 (COVID-19) vaccine, UNSPECIFIED 1 completed NONA JACKSON MD Attn: Accounting,[address] [facility], [place], [address] [place] [address], [facility] - [facility] 11/18/2023 11:09:36 pneumococcal polysaccharide PPV23 0 completed NONA JACKSON MD Attn: Accounting,[address] [facility], [place], [address] [place] [address], [facility] - [facility] 11/18/2023 11:09:36 pneumococcal polysaccharide PPV23 1 completed NONA JACKSON MD Attn: Accounting,[address] [facility], [place], [address] [place] [address], [facility] - [facility] 11/18/2023 11:13:35 influenza, unspecified formulation 9 completed NONA JACKSON MD Attn: Accounting,[address] [facility], [place], [address] [place] [address], [place] [facility] 11/18/2023 11:09:37 Tdap 7 completed NONA JACKSON MD Attn: Accounting,[address] [facility], [place], [address] [place] [address], [facility] - [facility] 11/18/2023 11:09:37 Pneumococcal conjugate PCV 13 7 completed NONA JACKSON MD Attn: Accounting,[address] [facility], [place], [address] [place] [address], [place] [facility] 11/18/2023 11:09:37 TST-PPD intradermal 0 completed NONA JACKSON MD Attn: Accounting,[address] [facility], [place], [address] [place] [address], [place] [facility] 11/18/2023 11:09:37 Influenza, high-dose, trivalent, PF 4 completed NONA JACKSON MD Attn: Accounting,[address] [facility], [place], [address] [place] [address], [place] [facility] 11/18/2023 11:13:35 Influenza, split virus, trivalent, PF 5 completed NONA JACKSON MD Attn: Accounting,[address] [facility], [place], [address] [place] [address], [place] [facility] 11/18/2023 11:09:37 Influenza, split virus, trivalent, PF 6 completed NONA JACKSON MD Attn: Accounting,[address] [facility], [place], [address] [place] [address], [place] [facility] 11/18/2023 11:09:37 Influenza, split virus, trivalent, PF 7 completed NONA JACKSON MD Attn: Accounting,[address] [facility], [place], [address] [place] [address], [place] [facility] 11/18/2023 11:09:37 Influenza, split virus, quadrivalent, PF 8 completed NONA JACKSON MD Attn: Accounting,[address] [facility], [place], [address] [place] [address], [place] [facility] 11/18/2023 11:09:37 Influenza, MDCK, trivalent, PF 0 completed NONA JACKSON MD Attn: Accounting,[address] [facility], [place], [address] [place] [address], [place] [facility] 11/18/2023 11:13:35 HepB-CpG 0 completed NONA JACKSON MD Attn: Accounting,[address] [facility], [place], [address] [place] [address], [place] [facility] 11/18/2023 11:11:11 influenza, unspecified formulation 2 completed NONA JACKSON MD Attn: Accounting,[address] [facility], [place], [address] [place] [address], [place] [facility] 11/18/2023 11:13:35 Influenza, split virus, trivalent, preservative 2 completed NONA JACKSON MD Attn: Accounting,[address] [facility], [place], [address] [place] [address], [place] [facility] 11/18/2023 11:13:35 Influenza, MDCK, trivalent, PF 2 completed NONA JACKSON MD Attn: Accounting,[address] [facility], [place], [address] [place] [address], [place] [facility] 11/18/2023 11:13:35 COVID-19, mRNA, LNP-S, PF, 50 mcg/0.5 mL 4 completed Not Available [facility] 03/16/2025 10:15:16 COVID-19, mRNA, LNP-S, PF, 50 mcg/0.5 mL 5 completed Not Available [facility] 03/16/2025 10:15:16 zoster recombinant 5 completed Not Available [facility] 03/16/2025 10:15:16 zoster recombinant 5 completed Not Available [facility] 03/16/2025 10:15:16 COVID-19, mRNA, LNP-S, PF, 100 mcg/0.5mL dose or 50 mcg/0.25mL dose 2 completed Bouchra Gaytan [place], [place] [facility] 09/18/2021 14:35:30 COVID-19, mRNA, LNP-S, bivalent, PF, 50 mcg/0.5 mL or 25mcg/0.25 mL dose 3 completed Lin Clay APN, [employer]ACHINE [employer]PERATOR-C Attn: Accounting,[address] [facility], [place], [address] [place] [address], [place] [facility] 09/09/2022 17:30:45 Influenza, split virus, quadrivalent, preservative 3 completed Sharon Moya MD Attn: [address] [place], [address], [facility] 06/25/2023 15:55:11 pneumococcal, unspecified formulation 0 completed Nona Higgenbotham null, [place] - [facility] 07/29/2023 15:56:48 tetanus toxoid, unspecified formulation 0 completed Nona Bejaranogenbotham null, [place] - [facility] 07/29/2023 15:56:48 Influenza, high-dose, trivalent, PF 4 completed Sharon Moya MD Attn: [address] [place], [address], [facility] 05/05/2024 15:10:30 Pneumococcal conjugate PCV20, polysaccharide [id number] conjugate, adjuvant, PF 5 completed ASHWINI BROWN Attn: [address] [place], [address], [facility] 10/15/2024 15:08:57 Influenza, high-dose, trivalent, PF 5 completed RADHA Yoon null, [place] - [facility] 03/16/2025 11:28:25 Past Encounters Encounter ID Performer Location Encounter Start Date Encounter Closed Date Diagnosis/Indication Diagnosis SNOMED-CT Code Diagnosis ICD10 Code Diagnosis IMO Codes Diagnosis Note [id number] Sathish Benedict MD [facility] [address] [place] [address] 06/18/2014 14:13:02 06/18/2014 16:52:12 Type 2 diabetes mellitus [id number] Last HGbA1c on 10-03-2013 was excellent a 5.9. Adult heal th examination 937937351 Patient already received an influenza vaccinatio n in April 2014. Urinary incontinence 058270378 followed by urologist Dr. Smith at [facility] in [place]. [id number] Tamiko Mullen MD [facility] (Adult Med) [address] [place] [address] 10/19/2016 13:58:24 10/20/2016 10:48:00 Diabetes mellitus 74722244 E11.9 Diabetic low saturated fat diet, .Insulin. Urinary incontinence 165 098460 R32 Generalize d osteoarthritis 553002446 M15.9 Knees and lower back. PT / OT will be offered.Ca lcium/luciana min D . Osteoporosis 30040275 M8 1.0 Daily OTC calcium/vi tamin D daily. Hypothyroidism 42952326 E03.9 Bipolar disorder 5512313 4 F31.9 She is going to [facility], [phone]. [id number] MD Farhat De Oliveira (Adult Med) [address] [place] [address] 08/07/2021 10:06:22 08/08/2021 06:50:14 Essential hypertension 51911672 I10 - pt is on amlodipine /not sure about lisinopril or losartan Type 2 allegra betes mellitus 96472445 E11.21 -pt is on lantus 28 units hs with humolog tid with meal per endopt is on metformine and some other meds - pt to call with meds Hypothyroidism 66053682 E03.9 pt is on thyroid pill Bipolar disorder 1241417 4 F31.9 meds per Chronic renal failure 90 656973 N18.9 -pt sees nephro at [place] Urinary incontinence 165 438376 R32 with h/o hydrocepha lina -s/p shunt - sees urologist Hydrocephalus 729854483 G91.9 s/p shunt -sees urologist [id number] MD Farhat De Oliveira (Adult Med) [address] [place] [address] 08/22/2021 14:52:59 08/25/2021 09:14:51 Essential hypertension 95678424 I10 - pt is on amlodipine Type 2 allegra betes mellitus 95349526 E11.21 -pt is on lantus 28 units hs with humolog tid with meal per endopt is on metformine and some other meds - pt to call with meds Hypothyroidism 94306971 E03.9 pt is on thyroid pill Bipolar disorder 4744370 4 F31.9 meds per Chronic renal failure 90 274519 N18.9 -pt sees nephro at [place] Hydrocephalus 201820708 G91.9 s/p shunt -sees urologist [id number] MD Farhat De Oliveira (Adult Med) [address] [place] [address] 09/17/2021 13:24:08 09/18/2021 07:23:33 Pressure injury of sacral region of back 509905714 L89.159 - change position /keep area cleanrefer ral to home health [id number] MD Farhat Uriostegui (Adult Med) [address] [place] [address] 09/18/2021 14:09:46 09/19/2021 11:56:16 Administration of SARS-CoV-2 mRNA vaccine 8637873398 Z23 [id number] MD Yoselin De Oliveirahalto (Adult Med) [address] [place] [address] 11/04/2021 13:31:16 11/05/2021 13:28:11 Vaginitis 59567408 N76.0 -improving /sees Senior Director Of Strategy Type 2 allegra betes mellitus 00643095 E11.21 -pt is on lantus 28 units hs with humolog tid with meal per endopt is off of metformine due to diarrhea Calcificat ion of coronary artery 956215778 I25.84 -CT chest showed per pulmo and wants to be referred to cardio [id number] [facility] [address] [place] [address] 12/01/2021 14:53:59 12/02/2021 14:55:40 Essential hypertension 04638675 I10 - pt is on amlodipine Type 2 allegra betes mellitus 22565470 E11.21 -pt is on lantus 28 units hs with humolog tid with meal per endopt is off of metformine due to diarrhea Hypothyroidism 96241109 E03.9 pt is on thyroid pill Bipolar disorder 2640979 4 F31.9 meds per Chronic renal failure 90 975185 N18.9 -pt sees nephro at [place] Sinusitis 33393318 J32.9 - pt to try flonase and loratidine Urinary incontinence 165 941414 R32 with h/o hydrocepha lina -s/p shunt - sees urologist [id number] [facility] [address] [place] [address] 04/10/2022 13:40:44 04/13/2022 08:21:58 Essential hypertension 37873680 I10 - pt is on amlodipine Type 2 allegra betes mellitus 10087253 E11.21 -pt is on lantus 28 units hs with humolog tid with meal per endopt is off of metformine due to diarrhea Hypothyroidism 06979833 E03.9 pt is on thyroid pill Bipolar disorder 3212126 4 F31.9 meds per Chronic renal failure 90 380547 N18.9 -pt sees nephro at [place] Screening mammography 24 396180 Z12.31 Screening for malignant neoplasm of colon 500342608 Z12.11 Renewal of prescription 422607374 Z76.0 Dependent edema 04532060 4 R60.0 -elevate legs [id number] MD Farhat De Oliveira (Adult Med) [address] [place] [address] 05/29/2022 12:17:26 06/02/2022 12:55:38 Dysuria 85657921 R30.0 -urine dipstick -okwill rx symptomati gus /pt to keep good hydrationp t sees urologist as well [id number] MD Yoselin De Oliveirahalto (Adult Med) [address] [place] [address] 08/07/2022 11:29:22 08/10/2022 10:18:15 Essential hypertension 94947725 I10 - pt is on amlodipine Type 2 allegra betes mellitus 75248984 E11.21 -pt is on lantus 28 units hs with humolog tid with meal per endopt is off of metformine due to diarrhea Chronic renal failure 90 341124 N18.9 -pt sees nephro at [place] Bipolar disorder 8045349 4 F31.9 meds per Hydrocephalus 357691763 G91.9 s/p shunt -sees urologist Hypothyroidism 78030877 E03.9 pt is on thyroid pill [id number] MD Farhat Uriostegui (Adult Med) [address] [place] [address] 09/09/2022 13:52:43 09/09/2022 17:31:36 Administration of SARS-CoV-2 mRNA vaccine 6457509520 Z23 [id number] MD Farhat Uriostegui (Adult Med) [address] [facility] [place] [address] 09/09/2022 15:49:34 09/10/2022 03:47:07 [id number] MD Farhat De Oliveira (Adult Med) [address] [place] [address] 11/03/2022 11:10:38 11/05/2022 09:52:22 Essential hypertension 23929003 I10 - pt is on amlodipine Type 2 allegra betes mellitus 22887991 E11.21 -pt is on lantus 28 units hs with humolog tid with meal per endopt is off of metformine due to diarrhea Bipolar disorder 9242247 4 F31.9 meds per Bilateral arthritis of knees 1442005853 030800 M13.861 M13.862 with back pain- pt is on pregabalin for chronic pain Hydrocephalus 058406909 G91.9 s/p shunt -sees urologist Hyperlipidemia 61448601 E78.5 with coronary calcificat ion -seen by cardio as well-pt is on statin Difficulty walking 30340 2002 R26.2 due to hydrocepha lina/chroni c arthritis of knees and back- pt is wheelchair bound -pt is not safe with walker or cane and risks of falls-pt needs electric wheelchair to complete her adl [id number] MD Farhat De Oliveira (Adult Med) [address] [place] [address] 03/02/2023 11:31:40 03/03/2023 09:49:26 Essential hypertension 71180324 I10 - pt is on amlodipine Type 2 allegra betes mellitus 98438762 E11.21 -pt is on lantus 28 units hs with humolog tid with meal per endopt is off of metformine due to diarrhea Hypothyroidism 54266630 E03.9 pt is on thyroid pill Bipolar disorder 6084096 4 F31.9 meds per - pt is requesting depakote level Chronic renal failure 90 793648 N18.9 -pt sees nephro at [place]- avoid nsaid Hydrocephalus 884186221 G91.9 s/p shunt -sees urologist Decreased hearing 613685 001 H91.90 [id number] [facility] [address] [place] [address] 06/25/2023 13:53:46 06/29/2023 12:23:18 Essential hypertension 54647439 I10 - pt is on amlodipine Type 2 allegra betes mellitus 69959507 E11.21 -pt is on lantus 28 units hs with humolog tid with meal per endopt is off of metformine due to diarrhea Hypothyroidism 58389870 E03.9 pt is on thyroid pill Lower urin samantha tract symptoms 438114409 R39.9 possibly due to vaginal atrophy- urine culture showed mixed growthpt was rxed with several antibiotic s by other providers on several occasions - discussed with pt regarding mutliple antibiotic use-pt to follow up with Gynpt is on uti px Hyperlipidemia 06720344 E78.5 with coronary calcificat ion -seen by cardio as well-pt is on statin Administra tion of influenza vaccine 94340866 Z23 [id number] MD Yoselin Ferrellhalto (Adult Med) [address] [place] [address] 07/20/2023 14:20:57 07/21/2023 10:23:43 Dysfunction of bilateral eustachian tubes 4064627779 167754 H69.93 follow back if it isn't improving Acute sinusitis 17351550 J01.90 start augmentin [id number] MD Yoselin De Oliveirahalto (Adult Med) [address] [place] [address] 09/28/2023 11:12:03 09/30/2023 16:27:23 Essential hypertension 99774644 I10 - pt is on amlodipine Type 2 allegra betes mellitus 62741841 E11.21 -pt is on lantus 28 units hs with humolog tid with meal per endopt is off of metformine due to diarrheapt is on ozempic as well Hypothyroidism 26542386 E03.9 pt is on thyroid pill Hyperlipidemia 49812834 E78.5 with coronary calcificat ion -seen by cardio as well-pt is on statin Bipolar disorder 3567859 4 F31.9 meds per - pt is requesting depakote level Screening for malignant neoplasm of colon 681665150 Z12.11 [id number] MD Rajendra Pickettn 14 IM [address] [facility] [address] [place] [address] 10/13/2023 16:49:54 10/18/2023 10:58:56 Urinary symptoms 649533165 R39.9 -UA positive for leukocytes despite prophylact ic therapy.-P ositive for CVA tenderness .-Patient presentati on concerning for possible antibiotic resistant UTI due to chronic antibiotic use and history of UTI treatment at the end of August.- Patient was escorted to the bathroom by 3 [place] staff members. Patient was unable to stand on her own and relied heavily on her 3 helpers. Patient states she lives at home alone and has felt very weak. Patient states she does not have anyone to help her at home.-COMPONENT TECHNICIAN discussed possibilit y of UTI with UA showing leukocytes , positive for CVA tenderness , and patient's increased weakness. COMPONENT TECHNICIAN discussed safety of patient going home alone with the patient. Patient would like to seek care in the ED. Patient would like to be driven to the ED by her cdl company driver instead of waiting for ambulance transport. -Patient to follow up with PCP. Body mass index 40+ - severely obese 156538620 Z68.41 [id number] MD Yoselin SOUTHhalto (ADDICTION TREATMENT COUNSELOR) [address] [place] [address] 11/18/2023 10:30:18 11/19/2023 12:24:03 Routine gynecologic examination done 1220128859 9101 Z01.419 - Reviewed risks for infection and cancer; ordered screening tests as appropriat e Recurrent urinary tract infection 794068972 N39.0 - Patient already using twice weekly [...] provider Screening for malignant neoplasm of breast 541102777 Z12.31 - Due for screening mammogram; ordered today Atrophic vaginitis 29045 000 N95.2 - Refilled home vaginal estrogen [id number] [facility]AT[facility] COUNSELOR) [address] [place] [address] 11/26/2023 11:45:14 12/04/2023 18:12:22 Acute vaginitis 57467658 N76.0 - Will check NuSwab to see patient has yeast infection that does not respond as well to azoles- Continue vaginal terconazol e for 7 nights as prescribed by urgent care Candidiasis of skin 4988 3006 B37.2 - Mild erythema of left inguinal crease concerning for yeast infection- Will treat with nystatin cream BID PRN [id number] [facility] ([facility] [address] [place] [address] 02/01/2024 10:44:25 02/07/2024 12:07:15 Essential hypertension 08296086 I10 - pt is on amlodipine Hypothyroidism 59603224 E03.9 pt is on thyroid pill Hyperlipidemia 16464930 E78.5 with coronary calcificat ion -seen by cardio as well-pt is on statin Type 2 allegra betes mellitus 56898158 E11.21 -pt is on lantus 28 units hs with humolog tid with meal per endopt is off of metformine due to diarrheapt is on ozempic as well Bipolar disorder 4233311 4 F31.9 meds per - pt is requesting depakote level Recurrent urinary tract infection 669383977 N39.0 - pt sees urologist and was rxed with several rounds of antibiotic Obesity 546843620 E66.8 [id number] MD Farhat SOUTH (ADDICTION TREATMENT COUNSELOR) [address] [place] [address] 02/11/2024 11:24:37 02/17/2024 16:21:44 Pruritus of vagina 84475929 L29.3 - Patient has persistent ly been [...] and vulvar manifestat ions of systemic disease [id number] 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 - [facility] 2 month per pt Chronic tremor 986624589 R25.1 which interferes with daily activities -holding things and writing [id number] MD Farhat De Oliveira (Adult Med) [address] [place] [address] 07/24/2024 14:54:59 07/28/2024 11:02:42 Community acquired pneumonia 770904418 J18.9 -pt is on augmantin now-improv ing-will repeat cxr in few wks Recurrent urinary tract infection 724687956 N39.0 - pt sees urologist and was rxed with several rounds of antibiotic Hydrocephalus 281897355 G91.9 s/p shunt -sees neurologis t [id number] Sathish Benedict MD [facility] [address] [place] [address] 09/22/2024 11:16:14 10/16/2024 08:50:07 Screening for malignant neoplasm of colon 998552287 Z12.11 Hemorrhoids 17668432 K64 .9 -patient reports hemorrhoid flare at this time. Patient declined exam-patie nt agreeable to treatment with hydrocorti sone cream b.i.d. p.r.n. for 1-2 weeks. COMPONENT TECHNICIAN discussed risks of steroid cream use including thinning of skin.-ER precaution s advised-keena martinsnt to follow up in clinic if symptoms worsen or do not improve HIV screen ing declined 1935518505 57049 Z53.20 Type 2 allegra betes mellitus without complication 716993135 E11.9 -uncontrol led-manage ment per endocrinol ogy-Last [...] liliam to check feet daily. Essential hypertension 61032147 I10 -Controlle d-BP today in clinic: 118/69mmHg [...] or >140/90mmH g Seasonal a llergic rhinitis 077893376 J30.2 -patient reports symptoms are controlled on current therapy-de creasing dose to age-approp riate dose of loratadine 5 mg daily p.r.n. Administra tion of pneumococcal vaccine 14867729 Z23 -Patient agreeable to pneumonia vaccine.-N P discussed potential side effects and benefits of vaccine. Chronic ki dney disease 279649946 N18.9 -managemen t per nephrology -Last GFR and Creatinine : 2.57 (05/22/24) -Continue to trend BMP-Advise d patient to stay hydrated and avoid nephrotoxi c medication s such as NSAIDs. [id number] [facility] (ADDICTION TREATMENT COUNSELOR) [address] [place] [address] 11/24/2024 11:01:00 11/24/2024 13:30:50 Routine gynecologic examination done 7834480144 9101 Z01.419 - Reviewed risks for infection and cancer; ordered screening tests as appropriat e Screening for malignant neoplasm of breast 951956155 Z12.31 - Due for screening mammogram; ordered today Atrophic vaginitis 35742 000 N95.2 28429 - Home vaginal estrogen now prescribed by urology Candidiasis of vagina 72 803709 B37.31 19220 - Recent Abx use in patient with uncontroll ed DM2; will treat empiricall y for yeast infection [id number] [facility] ([facility] [address] [place] [address] 12/22/2024 15:21:25 01/09/2025 08:49:42 Congestion of nasal sinus 47225342 R09.81 775627 - patient presentati on consistent with sinus congestion .- Patient to continue antibiotic therapy. COMPONENT TECHNICIAN advised patient to consume OTC probiotic or yogurt while on antibiotic therapy.- Patient agreeable to treatment with fluticason e 50 mcg nasal spray PRN and Tessalon Perles 100 mg TID PRN.- Patient to follow up in clinic if symptoms worsen or do not improve- ER precaution s advised [id number] [facility] ([facility] [address] [place] [address] 12/25/2024 11:28:30 01/09/2025 09:41:13 Adult health examination 927250108 Z00.00 Health Risk Assessment collected and reviewedTh e patient was counseled regarding the appropriat e use ofalcohol, screening procedures and recommende d schedule for colonoscop y, cholestero l, thyroid and diabetes screening, prevention of dental and periodonta l disease, diet, regular sustained exercise for at least 30 minutes 3-4 times per week, regular use of seat belts.Sabas mmend dilated eye exam and glaucoma screening every 2 years or as indicated by ophthalmol ogantonio- patient is doing well- follow-up in 3 months [id number] MD Farhat Pickett (Adult Med) [address] [place] [address] 02/16/2025 14:44:44 03/05/2025 09:07:35 Wound of skin 245642395 T14.8XXA 78330907 -wound noted to right buttock. patient reports she has had this wound for the past year-No discharge or erythema-P atient agreeable to wound care referral and mepilex dressings to help with healing. COMPONENT TECHNICIAN encouraged patient to be as mobile as possible.- patient to finish off antibiotic as prescribed by ED physician. COMPONENT TECHNICIAN advised patient to consume OTC probiotic or yogurt while on antibiotic therapy.-E R precaution s advised Uncontroll ed type 2 diabetes mellitus 036683349 E11.65 20898691 -Managemen t per Endocrinol ogy-Last A1c: 8% (12/21/24)- COMPONENT TECHNICIAN encouraged medication compliance -Recommend ed diabetic diet-Educa liliam to check feet daily.-Pat ient to f/u with specialist [id number] MD Farhat Pickett (Adult Med) [address] [place] [address] 03/16/2025 10:13:19 04/04/2025 12:44:53 Essential hypertension 07881271 I10 33597 -Controlle d-Manageme nt per Cardiology -BP today in clinic: 124/66mmHg (Goal <130/80)-C ontinue current therapy: Amlodipine 5 [...] with BP <110/70mmH g or >140/90mmH g Mixed hyperlipidemia 267 447971 E78.2 79517 -Continue current therapy: atorvastat in 20mg daily-Rech rashid lipid panel-Tren stone LFTs-Javid nt educated on the importance of diet, exercise and medication in the management of this condition. Uncontroll ed type 2 diabetes mellitus 989494590 E11.65 82138112 -Managemen t per Endocrinol ogy-Last A1c: 8% (12/21/24)- A1c today: 8.5%-Javid nt has follow up scheduled with Dr. Garcia on 03/30/25-COMPONENT TECHNICIAN encouraged medication compliance -continue current therapy-Re commended diabetic diet-Educa liliam to check feet daily.-Pat ient to f/u with specialist Chronic ki dney disease stage 3B 913779144 N18.32 3708343128 -Last GFR and Creatinine : 42/1.39 (03/16/25)-R eferral to nephrology placed-Con tinue to trend BMP-Advise d patient to stay hydrated and avoid nephrotoxi c medication s such as NSAIDs. Pain of ri t shoulder region 4340838796 M25.511 18722504 -Reports pain and limited ROM with flexion, extension, and abduction- Patient agreeable to trial of lidocaine patches PRN for pain management -PT ordered-Co nsider orthopedic referral if pain does not improve-ER precaution s advised Difficulty walking 41273 2002 R26.2 25479 Long-term current use of drug therapy 847342225 Z79.899 04727029 Immunization due 6146856 08 Z23 6781252 -Patient agreeable to pneumonia vaccine.-N P discussed potential side effects and benefits of vaccine. Health Concerns Section Related Observation LastModified by Organization Detai ls LastModified Time None Recorded Concern Status LastModified by Organization Details LastModified Time None Recorded Advance Directives Directive None Recorded Payers Insurance Date Sequence Insurance Name Policy Number Policy Morales Covered Member ID Morales Member ID Guarantor Name 03/14/2025 [place] [facility] Khadra Wolfe Basim [id number] Khadra Wolfe Allsman 09/18/2024 1 [place] Khadra Wolfe Basim [id number] Khadra Wolfe Allsman 07/24/2024 1 [facility] (MEDICARE REPLACEMENT/A DVANTAGE - PPO) [id number] Khadra Wolfe Allsman [id number] Khadra Wolfe Allsman 09/25/2024 1 [place] WHEN [place]ARE OR MEDIC[place] REPLACEMENT PRIMARY) Khadra Beltran [id number] Khadra Wolfe Allsman 07/24/2024 1 [place] Khadra Monteroann [id number] Khadra Wolfe Allsman 07/24/2024 2 [place] OR [place]IC[place] REPLACEMENT PRIMARY) Khadra Wolfe Allsman [id number] Khadra Wolfe Allsman 07/24/2024 [place] [facility] Khadra Stallworth [id number] Khadra Wolfe Allsman 07/24/2024 3 [facility] [id number] Khadra Allsman [id number] Khadra Wolfe Allsman 04/04/2025 1 [facility] (MEDICARE REPLACEMENT/A DVANTAGE - PPO) [id number] Khadra Wolfe Allsmann [id number] Khadra Wolfe Allsman 10/16/[address] [facility] - MEDICARE COMPLETE (MEDICARE REPLACEMENT HMO) [id number] Khadra Wolfe Allsman [id number] Khadra Wolfe Allsman Notes Date Note Type Note Provider Name and Address Organization Details Recorded Time 5 text/html ROS as noted in the HPI Annual well woman- PCP: STEFANI Dawson Concerns today- None. Has [...] mass; on alendronate NONA JACKSON MD Attn: Accounting,[address] [place], [address], [facility] 11/24/2024 13:11:25 5 text/html patient is a 64-year-old female presents to the clinic for urgent care follow-up. Patient's past medical history includes: bipolar disorder, COPD, CKD, hypertension, hyperlipidemia, hypothyroidism, osteoporosis, DMII, urinary incontinence, seizures, total hysterectomy, cholecystectomy, shunt in brain to stomach, appendectomy, anxiety, asthmaOther providers:Dr. Malone-psychiatryDrBrayden Dominguez-pulmonologyDrBrayden Wang-nephrologistDrBrayden Garcia-endocrinologistDrBrayden Chavez-UrologistDr. Nirmal-neurologistDrBrayden Gil-Rheumatology -Patient reports she has been sick for 2 weeks.-She was prescribed antibiotics: augmentin by [facility]. She reports her symptoms have not improved with medication therapy. Patient is currently taking doxycycline therapy-Patient reports experiencing symptoms of: sinus congestion, ear fullness, cough-productive white thick sputum, nausea, body aches, fevers, and sore throat.-Denies experiencing symptoms of vomiting, or diarrhea.-Patient has been taking claritin which has not helped her symptoms. [facility] Attn: Accounting,[address] [facility], [place], [address], [facility] 01/08/2025 23:03:02 5 text/html MAW 2Reported by PatientSocial/Behavioral HistoryFor diet and nutrition, patient reportshealthy diet. For fracture risk, patient reportsno history of fracturesandno sudden unexplained fractures.Mental Status:For concentration and memory, patient reportsno decreased concentrating ability,no memory lapses or loss, anddoes not forget words. For speech/motor difficulties, patient reportsno speech difficulties,no difficulty expressing formulated concepts,no difficulty with fine manipulative tasks,no difficulty writing/copying,no slowed reaction time, anddoes not knock things over when trying to pick them up.Functional AbilityFor instrumental activities of daily living, patient reportsunable to do house work without assistanceandunable to grocery shop without assistancebut reportsable to manage medications with limited or no assistance,able to manage money with limited or no assistance,able to prepare meals with limited or no assistance, andable to use the phone with limited or no assistance. For hearing, patient reportsno loss of hearing. For vision, patient reportsno vision problems. For activities of daily living, patient reportsable to bathe with limited or no assistance,able to contol urination and bowels,able to dress with limited or no assistance,able to feed self with limited or no assistance,able to get out of chair or bed with limited or no assistance,able to groom with limited or no assistance, andable to toilet with limited or no assistance. For falls risk assessment, patient reportsno frequent falls while walking,no fall in the past year,no fall since last visit, andno dizziness/vertigo. For home safety, patient reportsno unsafe florencia hazzards,no unsafe stairs,working smoke/co detectors,has hand bars in the bathroom/shower, andgood lighting in the home. Patient is a 64-year-old female presenting to the clinic for a Medicare wellness visit. Patient's past medical history includes: bipolar disorder, COPD, CKD, hypertension, hyperlipidemia, hypothyroidism, osteoporosis, DMII, urinary incontinence, seizures, total hysterectomy, cholecystectomy, shunt in brain to stomach, appendectomy, anxiety, asthmaOther providers:Dr. Josephine MontelongopulmonologyDr. JimeneznephrologistDr. CarbajalendocrinologistDr. RochaUrologistDr. Kinney-neurologistDr. Gil-Rheumatology STEFANI BROWN- Attn: Accounting,[address] [place], [address], [facility] 01/08/2025 23:49:17 5 text/html Patient is a 64-year-old female presents to the clinic for ED follow-up. Patient's past medical history includes: bipolar disorder, COPD, CKD, hypertension, hyperlipidemia, hypothyroidism, osteoporosis, DMII, urinary incontinence, seizures, total hysterectomy, cholecystectomy, shunt in brain to stomach, appendectomy, anxiety, asthmaOther providers:Dr. MeadpsychiatryDr. MontelnogopulmonologyDr. JimeneznephrologistDr. CarbajalendocrinologistDr. RochaUrologistDr. Kinney-neurologistDr. GilBjhx-Uhtwhtvcpsrd-Dtzxmt t was seen at [facility] ED on 02/15/2025 for wound check. Patient was given Keflex in the ER and prescribed this antibiotic for home Due to her elevated white blood cell count.- Patient would like to have her wound re-evaluated today in clinic ASHWINI BROWN Attn: Accounting,[address] [facility], [place], [address], [facility] 03/05/2025 07:15:57 5 text/html Patient is a 64-year-old female presents to the clinic for her 3 month follow-up. Patient's past medical history includes: bipolar disorder, COPD, CKD, hypertension, hyperlipidemia, hypothyroidism, osteoporosis, DMII, urinary incontinence, seizures, total hysterectomy, cholecystectomy, shunt in brain to stomach, appendectomy, anxiety, asthmaOther providers:Dr. Malone-psychiatryDr. Alberto-pulmonologyDr. Kathleen-nephrologistDrBrayden Garcia-endocrinologistDrBrayden Chavez-UrologistDr. Nirmal-neurologistDr. Jeffery-RheumatologyDr. Lauro-Chemical Tank Worker -Patient reports she has been suffering from right shoulder pain. Patient reports this started 2-3 months ago. Reports she has been taking tylenol arthritis for pain.-Patient has follow up with rheumatology on 04/04 ASHWINI BROWN Attn: Accounting,[address] [facility], [place], [address], [facility] 04/04/2025 10:08:02 OBGyn Episode No OBEpisode recorded.
[2025-04-06 15:16] VITALS: BP 153/59; PULSE 72; RESP 18; TEMP 36.4; O2SAT 100
[2025-04-06 15:16] LABS: EDUAAPPEAR Clear; EDUABILI Negative (Negative); EDUABLOOD Negative (Negative); EDUACOLOR1 Yellow; EDUAGLUCOSE Negative (Negative); EDUAKETONE Negative (Negative); EDUALEUKO Negative (Negative); EDUANITRATE Negative (Negative); EDUAPH 6.0; EDUAPROTEIN Negative (Negative); EDUASPGRAVITY 1.010; EDUAUROBILI 0.2
== END 2025-04-06 15:56 | disposition home or self-care (01) ==
PROVIDERS: Emergency Provider Nurse Practitioner Family; PCP Nurse Practitioner Family
DX: R30.0 Dysuria (principal); M54.50 Low back pain, unspecified; Z87.891 Personal history of nicotine dependence; I12.0 Hypertensive chronic kidney disease with stage 5 chronic kidney disease or end stage renal disease; E11.22 Type 2 diabetes mellitus with diabetic chronic kidney disease; N18.5 Chronic kidney disease, stage 5; Z79.4 Long term (current) use of insulin; Z79.85 Long-term (current) use of injectable non-insulin antidiabetic drugs; G40.909 Epilepsy, unspecified, not intractable, without status epilepticus; J44.9 Chronic obstructive pulmonary disease, unspecified; E03.9 Hypothyroidism, unspecified; F41.9 Anxiety disorder, unspecified; F31.9 Bipolar disorder, unspecified; Z98.2 Presence of cerebrospinal fluid drainage device; Z96.651 Presence of right artificial knee joint
CPT/HCPCS: 81003; 87086; 87186; 99213; G0463

== ENCOUNTER 2025-06-01 08:11 | Emergency (ER) | payer MEDICARE, MEDICAID, SELFPAY ==
--- OUTSIDE RECORDS SUMMARY | 2025-05-22 08:50 | XMS_ITS ---
Author Organization Pending sale to [facility] Address [address] [place] [address] Care Team Providers Care Stem Crusher Name Role Phone Anthony Burks Primary Care Provider Zelda Malone Unavailable [phone] REASON FOR VISIT 3 month f/u Social History Sex Assigned At : Social History Observation Description Sex Assigned At Female Encounters Encounter Location Date Provider Diagnosis [address] [place] [address] 05/22/2025 Zelda Malone Plan Of Treatment No Information Progress Notes * Jackson SEPULVEDAB:1960 (65 yo F)Acc No.[id number]:05/22/2025 UNLOCKED PROGRESS NOTE Patient: Khadra CANALES Provider: Isaac Malone :1960 A ge:65 Y S ex:Female Date:05/22/2025 Address:[address] [place] [address] [phone] Pcp:Anthony Burks Structured Data:Is there a n olu you would prefer we call you? (Nombre que prefiere usar) : No Subjective: * Chief Complaints: * 1 . 3 month f/u. * Medical History: Objective: * Vitals: Assessment: Plan: * Treatment: * * Electronic signature of Zelda Malone MD, [id number] on 06/01/2025 at 08:15 AM ATMOSPHERIC SCIENTIST Sign off status: Pending * Provider: Isaac Malone Date: 07/22/2024 Generated for Fernando rao/Darvin/Cruz on: 08/01/2024 08:15 AM ATMOSPHERIC SCIENTIST
--- OUTSIDE RECORDS SUMMARY | 2025-05-31 08:00 | XMS_ITS | Encounter Summary ---
Author Organization [facility] Address [address] [place] [address] Care Team Providers Care Signal Worker Name Role Phone Wu Saleem MD Unavailable [phone] Dominique Peck NP Primary Care Provider Reason for Visit * Reason Comments OP Infusion * Episode Based Medications (Routine) - Authorized Specialty Diagnoses / Procedures Referred By Contac t Referred To Contact Diagnoses Rheumatoid arthritis, involving unspecified site, unspecified whether rheumatoid factor present (HCC) Edwin Gupta MD [address] [place] [address] Phone: tel: fax: [address] [address] Phone: tel: Referral ID Status Reason Start Date Expiration Date V isits Requested Visits Authorized [id number] Authorized 05/02/2025 05/02/2026 9 9 Encounter Details Date Type Department Care Team (Late st Contact Info) Description 05/31/2025 8:00 AM SECURITY SHIFT MANAGER Infusion [address] [place] [address] Rheumatoid arthritis, involving unspecified site, unspecified whether rheumatoid factor present (HCC) (Primary Dx) Social History Tobacco Use Types [...] often do you attend chur ch or oriental orthodox services? 1 to 4 times per year 12/26/2020 Do you belong to any clubs o r organizations such as sikh groups, unions, fraternal or athletic groups, or school groups? No 12/26/2020 How often do you attend meet ings of the clubs or organizations you belong to? Never 12/26/2020 Are you , , di vorced, , never , or living with a partner? 12/26/2020 Overall Financial Resource Strain (CARDIA) Answe r [...] things needed for daily living? No 12/26/2020 AUDIT-C Answer Date Recorded Frequency of Alcohol Consumption Not on file 04/24/2025 Q2: How many drinks containi ng alcohol do you have on a typical day when you are drinking? Patient does not drink Frequency of Binge Drinking Not on file 04/11 Personal Safety Answer Date Recorded Have you ever been in or are you currently in a harmful physical or emotional relationship or is someone making you feel afraid or unsafe? Denies 01/09/2024 Comments No Sex and Gender Information Value Date Recorded Sex Assigned at Not on file Legal Sex Female 12:39 AM SECURITY SHIFT MANAGER Gender Identity Not on file Sexual Orientation Not on file documented as of this encounter Last Filed Vital Signs Vital Sign Reading Time Taken Comments Blood Pressure 161/62 05/31/2025 8:52 AM SECURITY SHIFT MANAGER Pulse 68 05/31/2025 8:52 AM SECURITY SHIFT MANAGER Temperature 36.6 C (97.9 F) 05/31/2025 8:17 AM SECURITY SHIFT MANAGER Respiratory Rate 20 05/31/2025 8:17 AM SECURITY SHIFT MANAGER Oxygen Saturation 96% 05/31/2025 8:52 AM SECURITY SHIFT MANAGER Inhaled Oxygen Concentration - - Weight 88.9 kg (195 lb 14.4 oz) 05/31/2025 8:52 AM SECURITY SHIFT MANAGER Height 175.3 cm (5' 9) 05/31/2025 8:52 AM SECURITY SHIFT MANAGER Body Mass Index 28.93 05/31/2025 8:52 AM SECURITY SHIFT MANAGER documented in this encounter Functional Status documented as of this encounter Nursing Notes * Kusum Banuelos, DWAYNE - 05/31/2025 8:00 AM CST Pt here for Inflectra infusion as ordered by . IV started per sep. Inflectra infusion given and noted in SEP. IV discontinued, site without redness or edema. Next appointment given. RITY SHIFT MANAGER documented in this encounter Plan of Treatment Not on file documented as of this encounter Procedures Procedure Name Priority Date/Time Associated Diagnosis Comments EGFR Routine 05/31/2025 8:45 AM SECURITY SHIFT MANAGER Rheumatoid arthritis, involving unspecified site, unspecified whether rheumatoid factor present (HCC) DIFFERENTIAL AUTO Routine 05/31/2025 8:4 5 AM SECURITY SHIFT MANAGER Rheumatoid arthritis, involving unspecified site, unspecified whether rheumatoid factor present (HCC) ERYTHROCYTE SEDIMENTATION RATE Routine 05/31/2025 8:45 AM SECURITY SHIFT MANAGER Rheumatoid arthritis, involving unspecified site, unspecified whether rheumatoid factor present (HCC) CBC WITHOUT DIFFERENTIAL Routine 05/31/2025 8:45 AM SECURITY SHIFT MANAGER COMPREHENSIVE METABOLIC PANEL Routine 05/31/2025 8:45 AM SECURITY SHIFT MANAGER Rheumatoid arthritis, involving unspecified site, unspecified whether rheumatoid factor present (HCC) URINALYSIS AND REFLEX TO MICROSCOPIC AND CULTURE Routine 05/31/2025 8:30 AM SECURITY SHIFT MANAGER Rheumatoid arthritis, involving unspecified site, unspecified whether rheumatoid factor present (HCC) documented in this encounter Results * (ABNORMAL) eGFR (05/31/2025 8:45 AM SECURITY SHIFT MANAGER) eGFR 43(L) >=60 mL/min/1. 73 m2 Comment: [...] was last reviewed 2021. Testing performed by: [place], [address] Blood 05/31/2025 8:45 AM SECURITY SHIFT MANAGER 05/31/2025 8:53 AM SECURITY SHIFT MANAGER us Edwin Gupta MD LAB BLOOD ORDERABLES Final Res ult [facility] ([place]) [facility] [place] [address] * (ABNORMAL) CBC without differential (05/31/2025 8:45 AM SECURITY SHIFT MANAGER) WBC 6.47 3.80 - 9.90 K/cumm Comment:Testing performed by : [facility], [place], [address] Hgb 13.0 11.9 - 15.5 g/dL [facility] ([place]) Comment:Testing performed by : [facility], [place], Hct 40.0 35.6 - 45.5 % [facility] ([place]) Comment:Testing performed by : [place], [place], Plt 113(L) 150 - 400 K/cumm [facility] ([place]) Comment:Testing performed by : [place], MPV 12.0 9.1 - 12.3 fL [facility] ([place]) Comment:Testing performed by : [place], RBC 4.16 3.90 - 5.20 M/cumm [facility] ([place]) Comment:Testing performed by : [place], MCV 96.2 81.3 - 96.4 fL [facility] ([place]) Comment:Testing performed by : [facility], [place], MCH 31.3 27.1 - 33.3 pg [facility] ([place]) Comment:Testing performed by : [facility], [place], MCHC 32.5 32.3 - 35.7 g/dL [facility] ([place]) Comment:Testing performed by : [place], RDW CV 13.2 11.1 - 14.9 % [facility] ([place]) Comment:Testing performed by : [facility], [place], RDW SD 47.4 35.7 - 48.1 fL [facility] ([place]) Comment:Testing performed by : [place], NRBC abs 0.00 0.00 - 0.01 K/cumm [facility] ([place]) Comment:Testing performed by : [place], [address] Blood 05/31/2025 8:45 AM SECURITY SHIFT MANAGER 05/31/2025 9:12 AM SECURITY SHIFT MANAGER us Edwin Gupta MD LAB BLOOD ORDERABLES Final Res ult [facility] ([place]) [address] [place] [address] [place] [address] * Differential, auto (05/31/2025 8:45 AM SECURITY SHIFT MANAGER) Neutrophil abs 3.96 1.50 - 6.50 K/cumm Comment:Testing performed by : [facility], [place], [address] Imm gran abs 0.05 0.00 - 0.10 K/cumm [facility] ([place]) Comment:Testing performed by : [place], [address] Lymphocyte abs 1.87 0.80 - 3.30 K/cumm [facility] ([place]) Comment:Testing performed by : [place], [address] Monocyte abs 0.70 0.20 - 0.80 K/cumm [facility] ([place]) Comment:Testing performed by : [facility], [place], [address] Eosinophil abs 0.05 0.00 - 0.50 K/cumm [facility] ([place]) Comment:Testing performed by : [facility], [place], [address] Basophil abs 0.04 0.00 - 0.10 K/cumm [facility] ([place]) Comment:Testing performed by : [place], [address] Neutrophil pct 59.5 % [facility] ([place]) Comment: Interpretive Data Percent cell count reference ranges are not reported, since discordance with absolute values may lead to misinterpretation of CBC data. Current Interpretive Data was last revised on 2017. Testing performed by: [place], [address] Imm gran pct 0.7 % [facility] ([place]) Comment: Interpretive Data Percent cell count reference ranges are not reported, since discordance with absolute values may lead to misinterpretation of CBC data. Current Interpretive Data was last revised on 2017. Testing performed by: [place], [address] Lymphocyte pct 28.0 % [facility] ([place]) Comment: Interpretive Data Percent cell count reference ranges are not reported, since discordance with absolute values may lead to misinterpretation of CBC data. Current Interpretive Data was last revised on 2017. Testing performed by: [facility], [place], [address] Monocyte pct 10.5 % [facility] ([place]) Comment: Interpretive Data Percent cell count reference ranges are not reported, since discordance with absolute values may lead to misinterpretation of CBC data. Current Interpretive Data was last revised on 2017. Testing performed by: [place], [address] Eosinophil pct 0.7 % [facility] ([place]) Comment: Interpretive Data Percent cell count reference ranges are not reported, since discordance with absolute values may lead to misinterpretation of CBC data. Current Interpretive Data was last revised on 2017. Testing performed by: [place], [address] Basophil pct 0.6 % [facility] ([place]) Comment: Interpretive Data Percent cell count reference ranges are not reported, since discordance with absolute values may lead to misinterpretation of CBC data. Current Interpretive Data was last revised on 2017. Testing performed by: [place], [address] Blood 05/31/2025 8:45 AM SECURITY SHIFT MANAGER 05/31/2025 8:53 AM SECURITY SHIFT MANAGER us Edwin Gupta MD LAB BLOOD ORDERABLES Final Res ult [facility] ([place]) [address] [place] [address] Department [place] [address] * Erythrocyte sedimentation rate (05/31/2025 8:45 AM SECURITY SHIFT MANAGER) Erythrocyte sedimentation rate 6 1 - 30 mm/hr Comment:Testing performed by : [facility], [place], [address] Blood 05/31/2025 8:45 AM SECURITY SHIFT MANAGER 05/31/2025 8:53 AM SECURITY SHIFT MANAGER Narrative [facility] ([place]) - 05/31/2025 9:22 AM SECURITY SHIFT MANAGER Fax labs to Dr Gupta [phone] us Edwin Gupta MD LAB BLOOD ORDERABLES Final Res ult [facility] [place] [address] * (ABNORMAL) Comprehensive metabolic panel (05/31/2025 8:45 AM SECURITY SHIFT MANAGER) Sodium 140 135 - 145 mmol/L Comment:Testing performed by : [place], [address] Potassium, pl 4.8 3.3 - 4.9 mmol/L [facility] ([place]) Comment:Testing performed by : [place], [address] Chloride 106 97 - 110 mmol/L [facility] ([place]) Comment:Testing performed by : [facility], [place], [address] CO2 26 22 - 32 mmol/L [facility] ([place]) Comment:Testing performed by : [place], [address] Anion gap 8 2 - 15 mmol/L [facility] ([place]) Comment:Testing performed by : [place], [address] BUN 31(H) 6 - 25 mg/dL [facility] ([place]) Comment:Testing performed by : [place], [address] Creatinine 1.37(H) 0.60 - 1.10 mg/dL [facility] ([place]) Comment:Testing performed by : [place], [address] Glucose 105 70 - 199 mg/dL [facility] ([place]) Comment: Interpretive Data Fasting glucose >/= 126 [...] classification and Diagnosis of Diabetes Diabetes Care 202; 46: S19-S40. Current interpretive data was last revised 2022. Testing performed by: [facility], [place], [address] Calcium 9.6 8.5 - 10.3 mg/dL [facility] ([place]) Comment:Testing performed by : [place], [address] Bilirubin, total 0.2 0.1 - 1.2 mg/dL [facility] ([place]) Comment:Testing performed by : [facility], [place], [address] Protein, pl 6.0(L) 6.5 - 8.5 g/dL [facility] ([place]) Comment:Testing performed by : [facility], [place], [address] Albumin 3.9 3.5 - 5.0 g/dL [facility] ([place]) Comment:Testing performed by : [facility], [place], [address] Alk phos 48 40 - 130 Units/L [facility] ([place]) Comment:Testing performed by : [facility], [place], [address] ALT 11 7 - 45 Units/L [facility] ([place]) Comment:Testing performed by : [facility], [place], [address] AST 16 10 - 45 Units/L [facility] ([place]) Comment:Testing performed by : [facility], [place], [address] Blood 05/31/2025 8:45 AM SECURITY SHIFT MANAGER 05/31/2025 8:53 AM SECURITY SHIFT MANAGER Narrative [facility] ([place]) - 05/31/2025 9:17 AM SECURITY SHIFT MANAGER Fax labs to Dr Gupta [phone] us Edwin Gupta MD LAB BLOOD ORDERABLES Final Res ult [facility] ([place]) 1 [facility] Department [place] [address] * Urinalysis reflex to microscopic and culture Urine (05/31/2025 8:30 AM SECURITY SHIFT MANAGER) Color, ur Straw Yellow Comment:Testing performed by : [facility], [facility], [place], [address] Clarity, ur Clear Clear [facility] ([place]) Comment:Testing performed by : [facility], [place], [address] Specific gravity, ur 1.007 1.003 - 1.030 [facility] ([place]) Comment:Testing performed by : [facility], [place], [address] pH, urine 6.5 [facility] ([place]) Comment: Interpretive Data U rine pH is affected by diet, medications, systemic acid-base disturbances, and renal tubular function. pH may affect urinary stone formation. For example, urine pH below 6.0 may help reduce the tendency for calcium phosphate stones and pH greater than 6.0 may reduce the tendency for uric acid stone formation. Source: [facility] Current Interpretive Data was last revised on 2017 Testing performed by: [facility], [place], [address] Protein, ur ql Negative Negative [facility] ([place]) Comment:Testing performed by : [facility], [place], [address] Glucose, ur ql Negative Negative [facility] ([place]) Comment:Testing performed by : [facility], [place], [address] Ketones, ur Negative Negative [facility] ([place]) Comment:Testing performed by : [facility], [place], [address] Bilirubin, ur Negative Negative [facility] ([place]) Comment:Testing performed by : [facility], [place], [address] Blood, ur Negative Negative [facility] ([place]) Comment:Testing performed by : [facility], [place], [address] Urobilinogen, ur <2.0 <2.0 mg/dL [facility] ([place]) Comment:Testing performed by : [facility], [place], [address] Nitrite, ur Negative Negative [facility] ([place]) Comment:Testing performed by : [facility], [facility], [place], [address] Leukocyte esterase, ur Negative Negative [facility] ([place]) Comment:Testing performed by : [facility], [facility], [place], [address] UA reflex comment Reflex conditions for microscopic UA and culture not met. [facility] ([place]) Comment:Testing performed by : [facility], [facility], [place], [address] Urine 05/31/2025 8:30 AM SECURITY SHIFT MANAGER 05/31/2025 8:41 AM SECURITY SHIFT MANAGER Narrative [facility] ([place]) - 05/31/2025 8:45 AM SECURITY SHIFT MANAGER Fax labs to Dr Gupta [phone] us Edwin Gupta MD LAB MICROBIOLOGY - GENERAL ORD ERABLES Final Result [facility] ([place]) [address] [facility] [place] [address] documented in this encounter Visit Diagnoses Diagnosis Rheumatoid arthritis, involving unspecified site, unspecified whether rheumatoid factor present (HCC)- Primary documented in this encounter Administered Medications Inactive Administered Medications - up to 3 most recent administrations Medication Order MAR Action Action Date Dose Rate Site inFLIXimab-dyyb (INFLECTRA) 400 mg in sodium chloride 0.9% 250 mL IVPB 400 mg (rounded from 440 mg = 5 mg/kg 88 kg), intravenous, Once, On Parul 05/31/25 at 0915, For 1 dose, Loading Dose: Administer on weeks 0, 2, and 6. Loading Dose #1 and 2 For 250 mL: lnititate therapy at 10mI/hour x 15 minutes then Increase to 20ml/hour x 15 minutes then Increase to 40ml/hour x 15 minutes then Increase to 80ml/hour x 15 minutes then Increase to 150ml/hour x 30 minutes then Increase to 250ml/hour x 30 minutes until infusion completes. FOR REACTIONS-STOP INFUSION. For 500 ml: Initiate therapy at 20 ml/hour x 15 minutes then Increase to 40 ml/hour x 15 minutes then Increase to 80 ml/hour x 15 minutes the Increase to 160 ml/hours x 15 minutes then Increase to 300 ml/hour x 30 minutes then Increase to 500 ml/hour until infusion is completed. FOR REACTIONS-STOP INFUSION. Use 1.2 micron filter or less, low-sorbing, low protein binding.Indications:Rheu matoid arthritis, involving unspecified site, unspecified whether rheumatoid factor present (HCC) Restarted (From Pump) 05/31/2025 10:52 AM SECURITY SHIFT MANAGER 250 mL/hr Rate/Dose Verify 05/31/2025 10:45 AM SECURITY SHIFT MANAGER 250 mL /hr Rate/Dose Change 05/31/2025 10:45 AM SECURITY SHIFT MANAGER 250 mL /hr documented in this encounter Orders Nursing Count Last Ordered Date First Orde red Date ONCBCN NURSING COMMUNICATION [id number] 1 1 07/31/2024 documented in this encounter Care Teams Signal Worker Relationship Specialty Start Date End Date Dominique Peck NP [address] [place] [address] [address] [place] [id number] PCP - General Nurse Practitioner 11/25/24 Wu Saleem MD [address] [place] [address] [address] [place] [id number] Outside Machinist Apprentice Hematology and Oncology 08/22/24 documented as of this encounter
--- NOTE | 2025-06-01 08:13 | ED.URI ---
HPI - URI/Sore Throat General Chief Complaint: Upper Respiratory Infection Stated Complaint: sinus pressure Time Seen by Provider: 06/01/25 08:42 Source: patient and RN notes reviewed Mode of arrival: ambulatory Limitations: no limitations History of Present Illness HPI Narrative: 65-year-old female presents with concern for runny nose, stuffy nose, sinus headache that started this morning. Reports she took sinus relief medication without relief of symptoms. She denies fever but reports cold chills and sweats. Symptoms started after she left her window open overnight MD elicited complaint: rhinorrhea and nasal congestion Related Data Home Medications ?Medication ?Instructions ?Recorded ?Confirmed ?Last Taken ?Type ascorbate calcium (vitamin C) 500 500 mg PO DAILY 01/02/22 04/25/25 Unknown History mg tablet calcium 600 mg (as 1 cap PO DIRECTED 01/02/22 04/25/25 Unknown History carbonate)-vitamin D3 12.5 mcg (500 unit) capsule (Calcium with Vit D3) lisinopril 20 mg tablet 20 mg PO BID 01/02/22 04/25/25 Unknown History linaclotide 72 mcg capsule 72 mcg PO QAM 08/10/22 04/25/25 Unknown History (Linzess) atorvastatin 20 mg tablet 20 mg PO DAILY 05/31/23 04/25/25 Unknown History citalopram 20 mg tablet 20 mg PO DAILY 05/31/23 04/25/25 Unknown History trimethoprim 100 mg tablet 100 mg PO DAILY 05/31/23 04/25/25 Unknown History alendronate 70 mg tablet 70 mg PO DAILY 06/22/23 04/25/25 Unknown History amlodipine 5 mg tablet 5 mg PO DAILY 08/03/23 04/25/25 Unknown History buspirone 15 mg tablet 15 mg PO DAILY 08/03/23 04/25/25 Unknown History divalproex 500 mg tablet,delayed 500 mg PO QID 08/03/23 04/25/25 Unknown History release famotidine 40 mg tablet 40 mg PO DAILY 08/03/23 04/25/25 Unknown History fluticasone fur. 200 mcg-umeclid 1 inh inhalation DAILY 08/03/23 04/25/25 Unknown History 62.5 mcg-vilant 25 mcg inhalat.powder (Trelegy Ellipta) fluticasone propionate 50 1 spray intranasal BID 08/03/23 04/25/25 Unknown History mcg/actuation nasal spray,suspension insulin glargine 100 unit/mL (3 16 unit subcut QPM 08/03/23 04/25/25 Unknown History mL) subcutaneous pen (Lantus Solostar U-100 Insulin) insulin lispro 100 unit/mL 28 unit subcut TID 08/03/23 04/25/25 Unknown History subcutaneous pen (Humalog KwikPen (U-100) Insulin) risperidone 0.5 mg tablet 0.5 mg PO DAILY 08/03/23 04/25/25 Unknown History tamsulosin 0.4 mg capsule 0.4 mg PO BID 08/03/23 04/25/25 Unknown History estradiol 0.01% (0.1 mg/gram) vaginal 12/07/24 04/25/25 Unknown History vaginal cream fluticasone fur. 100 mcg-umeclid inhalation 12/26/24 04/25/25 Unknown History 62.5 mcg-vilant 25 mcg inhalat.powder (Trelegy Ellipta) semaglutide 1 mg/dose (4 mg/3 mL) mg subcut 12/26/24 04/25/25 Unknown History subcutaneous pen injector (Ozempic) atorvastatin 40 mg tablet mg 04/06/25 04/25/25 Unknown History cyclosporine 0.05 % eye drops in a drp 04/06/25 04/25/25 Unknown History dropperette (Restasis) levothyroxine 175 mcg tablet mcg 04/06/25 04/25/25 Unknown History levothyroxine 175 mcg capsule 175 mcg PO DAILY 04/25/25 04/25/25 Unknown History Allergies Allergy/AdvReac Type Severity Reaction Status Date / Time carbamazepine Allergy Mild Unknown Verified 06/01/25 08:37 meperidine Allergy Mild Unknown Verified 06/01/25 08:37 prednisone Allergy Mild Unknown Verified 06/01/25 08:37 Review of Systems Review of Systems: CONSTITUTIONAL: Reports malaise, chills, sweats. Denies fever. EYES: Denies visual changes, redness, or discharge. ENT: Reports rhinorrhea, congestion, sinus pain. Denies otalgia and sore throat. CARDIOVASCULAR: Denies chest pain, palpitations, or edema. RESPIRATORY: Denies cough. Denies dyspnea. GASTROINTESTINAL: Denies abdominal pain, nausea, vomiting, diarrhea SKIN: Denies rash or itching. MUSCULOSKELETAL: Denies myalgia. NEUROLOGIC: Reports headache. All systems reviewed & are unremarkable except as noted in HPI and below PMFSH Past Medical History Medical History Sleep apnea Seizures Bipolar 1 disorder Chronic kidney disease, stage IV (severe) Depression Anxiety COPD (chronic obstructive pulmonary disease) Brain damage Hypothyroidism Hypertension Diabetes Brain ventricular shunt displacement Surgical History Surgical History History of brain shunt History of right knee joint replacement History of appendectomy S/P cholecystectomy H/O: hysterectomy 1991 Family History Family History Father Alcoholism Asthma Diabetes mellitus Hypertension Social History Social History Smoking status: Former smoker Tobacco type: cigarettes Alcohol intake: never Substance use: never Do You Feel Safe in your Home?: Yes Lack of Transportation: No Lack of Food: Sometimes True Current Housing: I Have Housing Concerned About Future Housing: No Difficulty Paying Gas/Electric Bills: YES Difficulty Paying for Meds: No Currently Unemployed: No Education: High School Diploma/GED Difficulty w/ Childcare or Family Care: No Gender identity (if verbalized by the patient): Female Spiritual care concerns: No Comments At time of signature, agree with nursing past medical, surgical, social and family history. There is no relevant family history pertinent to the presenting complaint Exam Narrative: GENERAL: Well-appearing, well-nourished, and in no acute distress. HEAD: Normocephalic EYES: PERRLA, conjunctivae clear ENT: Nares clear, clear discharge. Mucous membranes moist. TM pearly kruger with dull light reflex bilaterally; no tragal tenderness. Oropharynx not erythematous without lesions. Tonsils not enlarged and without exudate, no drooling, no hoarseness, no trismus, uvula midline. NECK: Supple. No lymphadenopathy CHEST: Clear to auscultation, breath sounds equal. No wheezing, rhonchi, rales, or stridor. No respiratory distress, speaks in full sentences. HEART: Regular rate and rhythm. No murmur heard. SKIN: Warm, dry, no rash. NEURO: Alert and oriented x3. PSYCH: Normal mood and affect Course Course Emergency Course: Patient is aware of diagnosis, understands and agrees to treatment plan. Anticipatory guidance given. Patient agrees to follow-up as directed and is aware of reasons to seek care at the emergency department. Portions of this record may have been created with voice recognition software Level of Care: Express Care Visit Vital Signs Vital signs: Vital Signs Temperature 97.4 F L 06/01/25 08:19 Pulse Rate 80 06/01/25 08:19 Respiratory Rate 16 06/01/25 08:19 Pulse Oximetry 97 06/01/25 08:19 Oxygen Delivery Room Air 06/01/25 08:19 Temperature 97.4 F L 06/01/25 08:19 Pulse Rate 80 06/01/25 08:19 Respiratory Rate 16 06/01/25 08:19 Blood Pressure 140/75 06/01/25 08:35 Pulse Oximetry 97 06/01/25 08:19 Oxygen Delivery Room Air 06/01/25 08:19 Reviewed. MDM - URI/Sore Throat MDM Narrative Medical decision making narrative: Differential diagnosis considered: Gould virus, strep pharyngitis, allergic rhinitis, upper respiratory tract infection, sinusitis, rhinosinusitis, nasopharyngitis. viral pharyngitis, otitis media, otitis externa, pneumonia, bronchitis, viral cough syndrome, viral syndrome, and influenza. Exam findings show no acute concerns or changes; patient is non-toxic appearing and is in no distress. Patient is appropriate for outpatient treatment and follow-up. Lab Data Attestation: I reviewed the patient's lab results. Critical Care Time Critical Care Time Critical Care Time: No Discharge Plan Discharge Clinical Impression: Upper respiratory infection Patient Disposition: Home Condition: Stable Instructions: Upper Respiratory Infection (ED) Additional Instructions: Viral illness may last between 7-21 days; antibiotics do not cure viral illness and are NOT recommended at this time. Take medication as prescribed Also, recommend symptomatic treatment includes: rest, fluids, and increase humidity of the air at home. Recommend Acetaminophen as directed on the bottle to reduce fever, pain, headache. Avoid smoking/second-hand smoke. Please schedule a follow-up visit with your personal physician for further evaluation and treatment within 3-5days. If your symptoms persist, change or worsen significantly before you can contact your personal physician then please, without delay, go to the emergency department for further evaluation. Patient Language: Swedish Prescriptions: New ipratropium bromide 21 mcg (0.03 %) spray,non-aerosol 2 spray NASAL TID PRN (Reason: nasal drainage) Qty: 30 0RF Rx Instructions: administer into each nostril cetirizine-pseudoephedrine [Zyrtec-D] 5-120 mg tablet extended release 12 hr 1 tablet PO Q12H PRN (Reason: nasal congestion) Qty: 12 0RF No Action atorvastatin 20 mg tablet 20 mg PO DAILY trimethoprim 100 mg tablet 100 mg PO DAILY citalopram 20 mg tablet 20 mg PO DAILY alendronate 70 mg tablet 70 mg PO DAILY estradiol 0.01 % (0.1 mg/gram) cream VAGINAL Trelegy Ellipta 100-62.5-25 mcg blister with device INHALATION Ozempic 1 mg/dose (4 mg/3 mL) pen injector SUBCUT atorvastatin 40 mg tablet levothyroxine 175 mcg tablet cyclosporine [Restasis] 0.05 % dropperette famotidine 40 mg tablet 40 mg PO DAILY amlodipine 5 mg tablet 5 mg PO DAILY divalproex 500 mg tablet,delayed release (DR/EC) 500 mg PO QID tamsulosin 0.4 mg capsule 0.4 mg PO BID fluticasone propionate 50 mcg/actuation spray,suspension 1 spray INTRANASAL BID risperidone 0.5 mg tablet 0.5 mg PO DAILY buspirone 15 mg tablet 15 mg PO DAILY insulin glargine [Lantus Solostar U-100 Insulin] 100 unit/mL (3 mL) insulin pen 16 unit SUBCUT QPM insulin lispro [Humalog KwikPen Insulin] 100 unit/mL insulin pen 28 unit SUBCUT TID Trelegy Ellipta 200-62.5-25 mcg Blister With Device 1 inh INHALATION DAILY lisinopril 20 mg tablet 20 mg PO BID calcium carbonate-vitamin D3 [Calcium 600 with Vitamin D3] 600 mg-12.5 mcg (500 unit) capsule 1 cap PO DIRECTED ascorbate calcium (vitamin C) 500 mg tablet 500 mg PO DAILY Linzess 72 mcg capsule 72 mcg PO QAM levothyroxine 175 mcg capsule 175 mcg PO DAILY furosemide 40 mg tablet 40 mg PO .QD Qty: 30 12RF Follow-up/Referrals: Cisco,Dominique Ta APRN [Primary Care Provider, Unknown] Time of Disposition: 09:04
--- OUTSIDE RECORDS SUMMARY | 2025-06-01 08:15 | XMS_ITS | Patient Health Record ---
Author Organization [facility] Address [address] [place] [address] Care Team Providers Care Manager Home Name Role Phone Anthony Burks Primary Care Provider [phone] Zelda Malone Unavailable [phone] Allergies Allergen (clinical drug ingredient) Drug/Non Drug [...] Duration) Notes Start Date End Date Status Furosemide 40 mg TAKE 1 TABLET BY FLORY TH DAILY; Duration: 28 Active Tamsulosin HCl 0.4 mg TAKE 1 CAPSULE BY MOUTH TWICE A DAY; Duration: 28 Active amLODIPine Besylate 5 mg TAKE 1 TABLET B Y MOUTH DAILY Active Loratadine 10 mg TAKE 1 TABLET BY FLORY TH DAILY Active Vitamin D (Cholecalciferol) 1000 UNIT three at HS Orally Once a day; Duration: 30 days 03/10/2018 Active Nebulizer - as directed for dx J 44.9 externally every 4 hours as needed 04/14/2021 Active HumaLOG KwikPen 100 UNIT/ML INJECT 20 UNITS SUBCUTANEOUSLY AT BREAKFAST, 12 UNITS AT LUNCH, AND 14 UNITS AT DINNE; Duration: 65 Active Trimethoprim 100 mg TAKE 1 TABLET BY FLORY DAILY; Duration: 28 Active hydrOXYzine HCl 25 mg 1 tab every night by mouth when needed orally every night; Duration: 30 days Active Alendronate Sodium 70 mg TAKE 1 TABLET B Y MOUTH EVERY WEEK IN THE MORNING AT LEAST 30 MINUTES BEFORE FOOD Active Famotidine 40 mg TAKE 1 TABLET BY FLORY AT BEDTIME Active busPIRone HCl 15 MG 1 tablet Orally thre e times a day; Duration: 30 days Active Melatonin 3 MG 1 tablet at bedtime as needed Orally Once a day; Duration: 30 days Active Levothyroxine Sodium 150 MCG TAKE 1 TABLET BY MOUTH EVERY MORNING ON EMPTY STOMACH Active Eddy Contour Test - four times daily as directed In Vitro for dx: E11.9 Type 2 diabetes; Duration: 90 days 10/13/2018 Active Potassium Chloride 20 MEQ 1 tablet with food Orally Once a day; Duration: 28 Active LANCETS thin as directed to skin four times daily; Duration: 30 days 03/03/2017 Active TEST STRIPS, FORMULARY ANY DIRECTED via meter for Dx E11.9 four times daily 03/03/2017 Active UltiGuard SafePack Pen Needle 32G X 4 MM USE DIRECTED FOUR TIMES A DAY; Duration: 25 Active Albuterol Sulfate HFA 108 (90 Base) MCG/ACT INHALE 1 PUFF EVERY FOUR HOURS NEEDED; Duration: 33 Active Fluticasone Propionate 50 MCG/ACT USE ONE SPRAY IN EACH NOSTRIL DAILY; Duration: 60 Active MiraLax - 1/2-1 packet mixed w ith 8 ounces of fluid Orally every other day 12/25/2019 Active Diabetic Shoes n/a as directed external as directed; Duration: 365 days 01/25/2019 Active Albuterol Sulfate (2.5 MG/3ML) 0.083% 3 ml as needed for dx J44.9 Inhalation every 4 hrs 04/14/2021 Active Proctozone-HC 2.5 % 1 application Soup Mixer ally three times daily; Duration: 7 days 12/05/2019 Active glipiZIDE ER 5 mg TAKE 1 TABLET BY FLORY DAILY WITH FOOD; Duration: 28 Not-Taking Aspirin 81 MG TAKE 1 TABLET BY FLORY TH ONCE DAILY Orally Once a day; Duration: 30 days Active Albuterol Sulfate (2.5 MG/3ML) 0.083% 3 ml as needed Inhalation every 6 hrs; Duration: 30 days 11/28/2019 Not-Taking Lyrica Active Acetaminophen Extra Strength 500 mg TAKE 2 TABLETS BY MOUTH THREE TIMES A DAY; Duration: 28 Active Nitrofurantoin Monohyd Macro 100 MG 1 capsule at bedtime with food Orally Twice a day Active Ozempic (0.25 or 0.5 MG/DOSE) 2 MG/3ML as directed Subcutaneous Not-Taking Back Support - as directed; Duraarabellao n: 365 days 06/01/2017 Active Microlet Lancets - as directed three ti mes daily; Duration: 30 days 10/21/2017 Active Citalopram Hydrobromide 20 MG 1 tablet Orally Once a day; Duration: 30 days Active Misc. Devices - Power Scooter prn; Duration: 365 days 12/24/2017 Active Senna-Time 8.6 mg TAKE 1 TABLET BY FLORY AT BEDTIME as NEEDED Active Atorvastatin Calcium 20 mg TAKE 1 TABLET BY MOUTH DAILY; Duration: 28 Active hydrOXYzine HCl 25 MG 1 tablet as needed Orally at night; Duration: 30 days Active Aspirin Low Dose 81 mg TAKE 1 TABLET BY MOUTH ONCE DAILY; Duration: 28 Active Wheelchair - as directed as neede d; Duration: 365 days 06/14/2019 Active Easy Touch Pen Molena 32G X 5 MM as directed inject four times daily; Duration: 25 Active Misc. Devices - Diabetic Shoe Dx: E1 1.9 Diabetes 2 Daily; Duration: 365 days 04/18/2018 Active Wheelchair - as directed for Dx M 17.0 Primary osteoarthritis of both knees 10/31/2018 Active risperiDONE 0.5 MG 1 tablet bedtime Ora lly Once a day; Duration: 30 days Active Lantus SoloStar 100 UNIT/ML INJECT 45 UNITS SUBCUTANEOUSLY AT BEDTIME; Duration: 33 Active Spiriva Respimat 2.5 MCG/ACT INHALE 2 PUFFS DAILY; Duration: 30 Active Divalproex Sodium 500 MG 2 tabs Orally t wice daily; Duration: 30 days Active guaiFENesin-DM 100-10 MG/5ML 10 ml as needed Orally every 4 hrs 04/14/2021 Active CeleXA 20 MG 1 tablet Orally Once a day; Duration: 30 days Active Montelukast Sodium 10 MG TAKE 1 TABLET B Y MOUTH EVERY DAY; Duration: 30 Active Super Size Bed Pad - as directed dx. z74 .0 impaired mobility nightly; Duration: 365 days 03/30/2018 Active BD Sharps Container Home - as directed as needed; Duration: 365 days 12/09/2017 Active Depend Underwear X-Large - as directed DX. z74.0 impaired mobility nightly; Duration: 365 days 03/30/2018 Active Immunizations Vaccine Route Administration Date Status Comme nts COVID-19 Moderna 1ST IM Intramuscular 10/17/2020 Administered COVID-19 Moderna 2nd IM Intramuscular 11/14/2020 Administered Influenza, injectable, quadrivalent, preservative free IM Intramuscular 04/18/2018 Administered Patient tolerated well. Vaccine info sheet given to patient. Social History Sex Assigned At : Social History Observation Description Sex Assigned At Female Problems Problem Type SNOMED Code ICD Code Onset Dates Problem Status W/U Status Risk Notes Problem Hyperkalemia (09617519) Hyperkalemia (E87.5) Active confirmed Problem Chronic pain (28226815) Other chronic pain (G89.29) Active confirmed Problem Bipolar 1 disorder (718884541) Bipolar 1 disorder (F31.9) 2016 Active confirmed Problem Former smoker (9190760) Former smoker (Z87.891) Active confirmed Problem Overweight (113058896) Over weight (E66.3) Active confirmed Problem Environmental allergy (065519180) Environmental allergies (Z91.09) Active confirmed Problem Essential hypertension (19168104) Hypertension, essential (I10) 2020 Active confirmed Problem Constipation (74458201) Constipation, unspecified constipation type (K59.00) Active confirmed Problem Gastroesophageal reflux disease (970210909) Gastroesophageal reflux disease, esophagitis presence not specified (K21.9) Active confirmed Problem Hyperlipidaemia (34016703) Hyperlipidemia, unspecified hyperlipidemia type (E78.5) Active confirmed Problem COPD - Chronic obstructive pulmonary disease (13303576) Chronic obstructive pulmonary disease, unspecified COPD type (J44.9) Active confirmed Problem Osteoarthritis of knee (604213165) Primary osteoarthritis of both knees (M17.0) Active confirmed Problem Type II diabetes mellitus without complication (574647936) Type 2 diabetes mellitus without complication, unspecified rn long term care insulin use status (E11.9) 2016 Active confirmed Problem Pneumonia (182385914) Pneumonia due to infectious organism, unspecified laterality, unspecified part of lung (J18.9) Active confirmed 01/2021 - RESOLVED Problem Upper respiratory infection (89394156) Upper respiratory tract infection, unspecified type (J06.9) Active confirmed Problem Chronic rhinitis (92824235) Rhinitis, unspecified type (J31.0) Active confirmed Problem Acquired hypothyroidism (605921470) Acquired hypothyroidism (E03.9) Active confirmed Problem Chronic kidney disease stage 3 (disorder) (359722972) Stage 3 chronic kidney disease (N18.3) Active confirmed DR WILSON RENAL Specialist Problem Obesity (409581177) Obesity, unspecified classification, unspecified obesity type, unspecified whether serious comorbidity present (E66.9) Active confirmed Problem Dyspnea on exertion (40005176) Dyspnea on exertion (R06.00) Active confirmed Problem Osteoporosis (66613697) Osteoporosis, unspecified (M81.0) Active confirmed Vital Signs Heart Rate 87 /min 05/29/2025 Respiratory Rate 16 /min 05/29/2025 Oximetry 94 % 05/29/2025 Blood pressure diastolic 82 mm Hg 05/29/2025 Height 69in in 05/29/2025 Blood pressure systolic 126 mm Hg 05/29/2025 Weight 184 lbs 01/30/2025 BMI 27.17 kg/m2 01/30/2025 Encounters Encounter Location Date Provider Diagnosis [address] [address] 06/20/2024 Arif Habib Bipolar 1 disorder F31.[address] [address] 08/01/2024 Arif Habib Bipolar 1 disorder F31.[address] [address] 10/24/2024 Arif Habib Bipolar 1 disorder F31.[address] [address] 01/30/2025 Arif Habib Over weight E66.3 and Bipolar 1 disorder F31.[address] [place] [address] [place] [address] 05/29/2025 Arif Habib Over weight E66.3 and Bipolar 1 disorder F31.[address] [address] 07/28/2024 Arif Habib Bipolar 1 disorder F31.[address] [place] [address] 09/19/2024 Arif Habib Bipolar 1 disorder F31.[address] [place] [address] 10/24/2024 Anthony Burks [place] [place] [address] 11/03/2024 Anthony Burks [address] [place] [address] 11/09/2024 Arif Habib [address] [address] 01/29/2025 Arif Habib [address] [address] 02/28/2025 Arif Habib Bipolar 1 disorder F31.[address] [address] 05/15/2025 Arif Habib Bipolar 1 disorder F31.[address] [place] [address] 05/18/2025 Anthony Burks Assessments Encounter Date Diagnosis (ICD Code) Assessment Notes Treatment Notes Treatment Clinical Notes Section Notes 01/30/2025 Over weight (ICD-10 - E66.3) 02/28/2025 Bipolar 1 disorder (ICD-10 - F31.9) 05/15/2025 Bipolar 1 disorder (ICD-10 - F31.9) 05/29/2025 Over weight (ICD-10 - E66.3) 06/20/2024 Bipolar 1 disorder (ICD-10 - F31.9) [...] her labs done regularly at PCP office. 05/29/2025 Bipolar 1 disorder (ICD-10 - F31.9) continue current treatment. Side effects discussed. Supportive treatment provided. No involuntary movements reported. Pt said she gets her labs done regularly at PCP office. Pt said her last labs were done at [facility] in 02/2025 Plan Of Treatment Pending Test Test Name [...] Insured Coverage Start Date Coverage End Date [employer]ure [address] [address] [place] [address] [id number] Khadra Beltran Self - patient is the insured 2 MEDICAID [address] [place] [address] [id number] Khadra Beltran Self - patient is the insured 5 Medical (General) History Medical History History ICD Code DM HLD hypothyroidism allergies Normal Pressure Hydrocephalus with ventr iculoperitonela shunt in 2014 Surgical History Surgery Date(Month/Year) cholecystectomy TOTAL HYSTERECTOMY APPENDECTOMY CATARACT SURGERY, COMPLEX Hospitalization History Reason Date(Month/Year) High Blood sugar- [facility] 01/2023 Pnuemonia at [facility]. 09/11/19 acute ecoli infection 02/2016
--- OUTSIDE RECORDS SUMMARY | 2025-06-01 08:15 | XMS_ITS ---
Author Organization [facility] Address [address] [place] [address] Phone Care Team Providers Care Balling Head Tender Name Role Phone Sharon Moya MD Primary Care Provider [phone] Chapito Garcia MD Unavailable Radha Mac DPM Unavailable [phone] Kellee Chronic Condition Monitoring Status:Enrolled (Active) Start date:01/10/2025 Enrollment date:01/10/2025 Related social drivers of health:Social Connections, Alcohol Use, Tobacco Use, Financial Resource Strain, Stress, Physical Activity,Food Insecurity, Transportation Needs, Housing Stability, Utilities Related service episodes:Kellee [facility] Service Episode (Declined) Continued Care and Services Coordination
--- OUTSIDE RECORDS SUMMARY | 2025-06-01 08:15 | XMS_ITS | Encounter Summary ---
Author Organization [facility] Address [address] [place] [address] Care Team Providers Care Machine Wood Sander Name Role Phone Javi Jones MD Unavailable [phone] Amarilis Rivera PT Unavailable Unavailable Stuart Douglas MD Unavailable [phone] Anthony Burks MD Primary Care Provider [phone] Miscellaneous, Not In File Primary Care Provider Unavailable Unknown, Notinfile Primary Care Provider Unavail able Sharon Moya MD Primary Care Provider [phone] Wu Saleem MD Unavailable [phone] Dominique Peck NP Primary Care Provider Encounter Details Date Type Department Care Team (Late st Contact Info) Description 02/12/2020 Telephone [facility] [address] [place] [address] Traci Urrutia, RT Social History Tobacco Use [...] re latives? Once a week 10/12/2019 Attends [employer] Services Not on file 10/11 Do you [...] on file Legal Sex Female 12:39 AM LOG CUT OFF SAWYER Gender Identity Not on file Sexual Orientation [...] documented as of this encounter Care Teams Machine Wood Sander Relationship Specialty Start Date End Date Anthony Burks MD PCP - General 09/08/19 08/04/21 Miscellaneous, Not In File PCP - General 08/05/21 08/05/21 Unknown, Notinfile PCP - General 08/06/21 08/17/21 Sharon Moya MD [address] [place] [address] [place] [id number] PCP - General 08/18/21 11/24/24 Dominique Peck NP [address] [place] [address] [place] [address] PCP - General Nurse Practitioner 11/25/24 Javi Jones MD [address] [place] [address] Referring Physician Orthopedic Surgery 01/20/18 5 Amarilis Rivera, PT Physical Therapist Physical Therapy 01/24/18 10/05/24 Stuart Douglas MD Surgeon Orthopedic Surgery 11/24/18 05/10/25 Wu Saleem MD [address] [place] [address] [place] [address] Research Advisor Hematology and Oncology 08/22/24 documented as of this encounter
--- OUTSIDE RECORDS SUMMARY | 2025-06-01 08:16 | XMS_ITS | Data Portability ---
Author Organization [facility] [place] Address [address] [place] [address] Care Team Providers Care Edge Glue Machine Tender Name Role Phone BRYAN SCALES Primary Care [...] Abnormal Flag Note LastModifiedBy Organization Detail LastModifiedTime 12/14/1912/14/2019 urina lysis , dipst ick Leukocytes Trace Not Available Jairo hanna [address], [place], [address], 12/14/2019 16:35:23 12/14/19 20 12/14/2019 urina lysis , dipst ick Protein Trace Not Available [place] [address], [place], [address], 12/14/2019 16:35:23 12/14/19 20 12/14/2019 urina lysis , dipst ick Glucose 100 Not Available [place] [address], [place], [address], 12/14/2019 16:35:23 12/14/19 20 12/14/2019 fecal occul t blood , stool Occult Blood negati ve Not Available [place] [address], [place], [address], 12/14/2019 14:58:44 Result Notes None recorded. Procedures Surgical History Date Name Laterality Status Provider Name and Address Organization Details Recorded Time 019 replacement of bilateral knee joints completed [facility] 12/14/2019 14:27:26 018 Date of Last Pap Smear completed [facility] 12/14/2019 14:22:33 015 Other completed [facility] 12/14/2019 14:28:01 992 hysterectomy completed [facility] 12/14/2019 14:27:09 982 Cholecystectomy completed [facility] 12/14/2019 14:26:37 971 Appendectomy completed [facility] 12/14/2019 14:23:24 Imaging Results None recorded. Procedure Notes None recorded. Medical Equipment None Reported. Allergies Allergen ID Allergen Name Allergen Category Reaction Reaction Severity Criticality Documentation Date Start Date Code Code System Note Provider Name and Address Organization Details Recorded Time 857 Product containin g glucocort icoid (product) medicatio n Not available Not available Not available 12/14/2019 88154 6006 SNOMED [place] Hernan vtnilsa [facility] 0 14:21:16 858 Tegretol medicatio n itching Not available Not available 12/14/2019 9 RxNorm [place] Hernan vtnilsa [facility] 0 14:21:42 859 Demerol medicatio n vomiting Not available Not available 12/14/2019 69655 1 RxNorm Juani wilkerson [facility] 0 14:21:55 Medications Name Sig Start Date Stop Date Status Note LastModified by Organization Details LastModified Time Premarin 0.625 mg/gram vaginal cream active Not Available Not Available Not Available Vitals Date Recorded Body height Body mass index (BMI) Body weight Systolic And Diastolic Provider Name and Address Organization Details Last Updated DateTime 12/14/2019 175.26 cm 30 kg/m2 78598.25 g 155/85 mm[Hg] Juani aHrvey [facility] 12/14/2019 14:21:08 Social History None recorded. Functional Status [...] Other High Cholesterol Y Heart Disease Y Kidney or Bladder Problems Y Thyroid Problems Y Hypertension Y Neurologic/Epilepsy Y Psychiatric Illness Y Gynecological History Statement/Question Response Date of Last Pap Smear 07/12/2017 Current Control Method Hysterectom y Date of LMP 07/12/1991 LMP Approximate Obstetrics History GPAL:G 0 P 0 0 0 0 Past Encounters Encounter ID Performer Location Encounter Start Date Encounter Closed Date Diagnosis/Indication Diagnosis SNOMED-CT Code Diagnosis ICD10 Code Diagnosis IMO Codes Diagnosis Note [id number] Ermelinda Moore MD [place] [address] [address] 12/14/2019 13:18:52 12/14/2019 14:57:35 Routine gynecologic examination done [id number] 9101 Z01.419 No pap needed since s/p [...] Morales Member ID Guarantor Name 12/14/2019 2 [place] [employer] PUBLIC [employer]ID Khadra Beltran [id number] Khadra Beltran 12/14/2019 1 [place] Khadra Stallworth [id number] Khadra Beltran Notes Date Note Type Note Provider Name and Address Organization Details Recorded Time 0 text/html Annual GYNReported by PatientGenitourinary symptomsFor menstrual cycle, patient reportsnormal menses. For urinary symptoms, patient reportsno hematuriaandno incontinence. For vulva, patient reportsno genital lesion. For vagina, patient reportsnormal vaginal discharge.Breast symptomsFor breast, patient reportsno breast pain,no breast lump, andno nipple discharge.Endocrine symptomsFor sexual complaints, patient reportsno sexual complaints,no pain during intercourse, andnormal libido. For menopausal symptoms, patient reportsno menopausal symptomsandnormal vaginal lubrication.Psychological symptomsFor psychological symptoms, patient reportsno depression,no anxiety, andno pmdd. Yaneth cali [place] [facility] 12/14/2019 15:45:03 OBGyn Episode No OBEpisode recorded.
--- OUTSIDE RECORDS SUMMARY | 2025-06-01 08:16 | XMS_ITS | Encounter Summary ---
Author Organization [facility] Address [address] [place] [address] Phone Care Team Providers Care Net Mobile Developer Name Role Phone Sharon Moya MD Primary Care Provider [phone] Chapito Garcia MD Unavailable Radha Mac DPM Unavailable [phone] Encounter Details Date Type Department Care Team (Late st Contact Info) Description 06/12/2024 Nursing Facility [facility] [address] [place] [phone] Fiorella Horn, RETAIL SALES PROFESSIONAL, CORRUGATOR HELPER [address] [place] [address] Social History Tobacco Use Types Packs/Day Years Used Date Smoking Tobacco: Former Cigarettes 1 12 Smokeless Tobacco: Never Alcohol Use Standard Drinks/Week Comments No 0 (1 standard drink = 0.6 oz pur e alcohol) [facility] Utilities Answer Date Recorded In the past 12 months has [email or web address], gas, oil, or water [employer] threatened to shut off services in your home? Patient declined 05/25/2024 Social Connection and Isolation Panel Answer Date Recorded In a typical week, how many times do you talk on the phone with family, friends, or neighbors? Patient declined 05/25/2024 How often do you get togethe r with friends or relatives? Patient declined 05/25/2024 How often do you attend zoroastrianism or restoration serv ices? Patient declined 05/25/2024 [...] Score - Questions 1-9 0 0 03/2022 [facility] Occupat ional [facility] - Occupational Stress Questionnaire Answer Date Recorded [...] any time in the past 12 m [facility], were you homeless or living in [...] Care Team (Late st Contact Info) Description 06/28/2025 9:00 AM VARIETY LATHE OPERATOR Office Visit [facility] - Endocrinology [facility] [address] [place] [address] Chapito Garcia MD [address] [address] documented as of this encounter Visit Diagnoses Not on filedocumented in this encounter Care Teams Net Mobile Developer Relationship Specialty Start Date End Date Sharon Moya MD [address] [place], [place] [phone] PCP - General Internal Medicine 09/16/21 Chapito Garcia MD [address] [phone] Consulting Physician Endocrinology 12/25/21 Radha Mac DPM #[address] [phone] Consulting Physician Podiatry 05/26/22 documented as of this encounter
--- OUTSIDE RECORDS SUMMARY | 2025-06-01 08:16 | XMS_ITS | Clinical Summary ---
Author Organization [facility] [employer] [facility] [employer]ne[employer] [facility] Address [address] [place] [address] [place] [phone] Phone Care Team Providers Care Exhibit Builder Name Role Phone Sharon Moya MD Primary Care Provider [phone] Medications albuterol (2.5 MG/3ML) 0.083% nebulizer solution [...] mouth 1 (one) time each day Active Social History Tobacco Use Types Packs/Day Years [...] Foot Exam 11/24/2024 Influenza Vaccine (#1) 2025 4, 06/25/2023, 03/06/2022, Additional history exists Diabetes: Hemoglobin A1C 03/23/2025 025, 09/11/2024, 05/23/2024, Additional history exists Pneumococcal Vaccine: 50+ Years (4 of 4 - PCV20 or PCV21) 02/13/2026 02/13/2021, 08/25/2016, 07/12/1999, Additional history exists Hepatitis B Vaccine Aged Out No longe r eligible based on patient's age to complete this topic Insurance [address] [place] [address] UHC Medicare Medicaid [place] Care Teams Exhibit Builder Relationship Specialty Start Date End Date Sharon Moya MD [address] [place] [address] PCP - General Internal Medicine 11/24/24
--- OUTSIDE RECORDS SUMMARY | 2025-06-01 08:16 | XMS_ITS | Encounter Summary ---
Author Organization [facility] Address [address] [place] [address] Phone Care Team Providers Care Ticket Taker Name Role Phone Sharon Moya MD Primary Care Provider Chapito Garcia MD Unavailable Radha Mac DPM Unavailable Reason for Visit * Reason Comments Medication Refill Encounter Details Date Type Department Care Team (Late st Contact Info) Description 09/16/2023 [facility]ill [facility] [address] [place] [address] Chapito Garcia MD [address] [address] Medication Refill Social History Tobacco [...] Margo Abreu, RN - 09/16/2023 8:12 AM JUMP IRON MACHINE PRESSER Requested Prescriptions Pending Prescriptions Disp Refills OneTouch Verio Strip [Pharmacy Med Name: ONE TOUCH VERIO TEST STRIP] 400 Strip 3 Si TIMES A DAY Next appt: 12/17/2023 IRON MACHINE PRESSER documented in this encounter Plan of Treatment Upcoming Encounters Date Type Department Care Team (Late st Contact Info) Description 06/28/2025 9:00 AM JUMP IRON MACHINE PRESSER [facility] Visit [facility] [address] [place] [address] Chapito Garcia MD [address] [phone] documented as of this encounter Visit Diagnoses Diagnosis Type 2 diabetes mellitus with diabetic polyneuropathy, with long-term current use of insulin documented in this encounter Additional Health Concerns Infection Onset Date Last Indicated Resolved Time COVID - 19 04/12/2024 04/12/2024 04/12/2024 4:20 PM CDT COVID - 19 05/22/2024 05/22/2024 05/22/2024 1:03 PM JUMP IRON MACHINE PRESSER documented as of this encounter Care Teams Ticket Taker Relationship Specialty Start Date End Date Sharon Moya MD [address] [place], [place] [phone] PCP - General Internal Medicine 09/16/21 Chapito Garcia MD [address] [phone] Consulting Physician Endocrinology 12/25/21 Radha Mac DPM [address] [phone] Consulting Physician Podiatry 05/26/22 documented as of this encounter
--- OUTSIDE RECORDS SUMMARY | 2025-06-01 08:16 | XMS_ITS | Encounter Summary ---
Author Organization [facility] Address [address] [place] [address] Phone Care Team Providers Care Culinary Chef Name Role Phone Sharon Moya MD Primary Care Provider [phone] Chapito Garcia MD Unavailable Radha Mac DPM Unavailable [phone] Encounter Details Date Type Department Care Team (Late st Contact Info) Description 07/18/2024 Nursing Facility [facility] [address] [place] [phone] Fiorella Horn, REMOTE BROADCAST ENGINEER, CHAIR AND COUCH MAKER [address] [place] [address] Social History Tobacco Use Types Packs/Day Years Used Date Smoking Tobacco: Former Cigarettes 1 12 Smokeless Tobacco: Never Alcohol Use Standard Drinks/Week Comments No 0 (1 standard drink = 0.6 oz pur e alcohol) [facility] Utilities Answer Date Recorded In the past 12 months has [employer], gas, oil, or water [employer] threatened to shut off services in your home? Patient declined 05/25/2024 Social Connection and Isolation Panel Answer Date Recorded In a typical week, how many times do you talk on the phone with family, friends, or neighbors? Patient declined 05/25/2024 How often do you get togethe r with friends or relatives? Patient declined 05/25/2024 How often do you attend pentecostalism or buddhist serv ices? Patient declined 05/25/2024 Do you [...] Score - Questions 1-9 0 0 03/2022 [facility] of Occupat ional [facility] - Occupational Stress Questionnaire Answer [...] were you homeless or living in a long term (including now)? Patient declined 05/25/2024 Sexually Active [...] st Contact Info) Description 06/28/2025 9:00 AM THEATRE DIRECTOR Office Visit [facility] - Endocrinology [facility] [address] [place] [address] Chapito Garcia MD #[address] [phone] documented as of this encounter Visit Diagnoses Not on filedocumented in this encounter Care Teams Culinary Chef Relationship Specialty Start Date End Date Sharon Moya MD [address] [place], [place] [phone] PCP - General Internal Medicine 09/16/21 Chapito Garcia MD [address] [phone] Consulting Physician Endocrinology 12/25/21 Radha Mac DPM #[address] [phone] Consulting Physician Podiatry 05/26/22 documented as of this encounter
--- OUTSIDE RECORDS SUMMARY | 2025-06-01 08:16 | XMS_ITS | Encounter Summary ---
Author Organization [facility] Address [address] [place] [address] Phone Care Team Providers Care Furniture Assembler And Installer Name Role Phone Sharon Moya MD Primary Care Provider [phone] Chapito Garcia MD Unavailable Radha Mac DPM Unavailable [phone] Encounter Details Date Type Department Care Team (Late st Contact Info) Description 06/05/2024 Nursing Facility [facility] [address] [place] [phone] Tex Vargas, [facility] [address] [place], [place] [phone] Social History Tobacco Use Types Packs/Day Years Used Date Smoking Tobacco: Former Cigarettes 1 12 Smokeless Tobacco: Never Alcohol Use Standard Drinks/Week Comments No 0 (1 standard drink = 0.6 oz pur e alcohol) [facility] Utilities Answer Date Recorded In the past 12 months has [employer], gas, oil, or water [employer] threatened to shut off services in your home? Patient declined 05/25/2024 Social Connection and Isolation Panel Answer Date Recorded In a typical week, how many times do you talk on the phone with family, friends, or neighbors? Patient declined 05/25/2024 How often do you get togethe r with friends or relatives? Patient declined 05/25/2024 How often do you attend orthodox or holiness serv ices? Patient declined 05/25/2024 Do you belong to any clubs o r organizations such as orthodox groups, unions, fraternal or athletic groups, or [...] Score - Questions 1-9 0 /0 03/2022 [facility]at [facility] - Occupational Stress [...] any time in the past 12 m [place], were you homeless or living in a [...] of this encounter Progress Notes * Tex Vargasew, PAC - 06/05/2024 11:59 PM CST [facility] PROGRESS NOTE Khadra Beltran is a 64 y.o. female at [facility] for rehabilitation. Pt is s/p recent hospitalization from 05/25-05/29/2024 for PNA and UTI and suspected new SDH. Pt was initially sent to [facility] ED for evaluation of poss new Subdural hematoma noted onCTH, after a suspected fall from her wheelchair. She then transferred to higher level of care to [facility] and was seen by neurosurgery at [facility] and deemed to have a chronic SDH. During her hospitalization, she was found to have Community acquired PNA and Urine culture grew Enterococcus organism. Pt was transferred back to [facility] for treatment of her infection. Was seen in consultation by IRINA-Dr. Awad and deemed to have asymptomatic Bacteriauria and no infection in lungs either. Her antibiotics were stopped and pt was discharged back to [facility]. Subjective: Interval History: I am [...] and moist, no lesion or exudate. - [place]. Neck: Supple. No JVD, lymphadenopathy thyromegaly or [...] limits Imaging: CTH showed chronic SDH and GIS SCIENTIST shunt intact. 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 Chronic SDH Seen by neurosurgery at [facility] and deemed to have chronic Subdural hematomas Monitor neuro checks DM type 2 Continue Lantus, Ozempic and sliding scale Monitor blood sugats COPD Not in exacerbation, continue inhalers Anxiety/depression/Bipolar Continue Risperidone and Depakote HTN/HLD Bp stable, continue statin and Norvasc VTE Prophylaxis: activity By: CASPER Velázquez 06/05/24 ER DEMOLDER documented in this encounter Plan of Treatment Upcoming Encounters Date Type Department Care Team (Late st Contact Info) Description 06/28/2025 9:00 AM LOADER DEMOLDER Office Visit [facility] - Endocrinology - [place] [address] [place] [address] Chapito Garcia MD [address] [phone] documented as of this encounter Visit Diagnoses Not on filedocumented in this encounter Care Teams Furniture Assembler And Installer Relationship Specialty Start Date End Date Sharon Moya MD [address] [place], [place] [phone] PCP - General Internal Medicine 09/16/21 Chapito Garcia MD #[address] [phone] Consulting Physician Endocrinology 12/25/21 Radha Mac DPM #[address] [phone] Consulting Physician Podiatry 05/26/22 documented as of this encounter
--- OUTSIDE RECORDS SUMMARY | 2025-06-01 08:16 | XMS_ITS | Encounter Summary ---
Author Organization [facility] Address [address] [place] [address] Phone Care Team Providers Care Manager Critical Care Name Role Phone Sharon Moya MD Primary Care Provider [phone] Chapito Garcia MD Unavailable Radha Mac DPM Unavailable [phone] Reason for Visit * Reason Comments Medication Refill Encounter Details Date Type Department Care Team (Late st Contact Info) Description 12/29/2024 Refill [facility] [address] [place] [address] Boni Chavez, OFFLINE CUTTER, MUNICIPAL ENGINEER [address] [place] [address] Medication Refill Social History Tobacco Use Types Packs/Day Years Used Date Smoking Tobacco: Former Cigarettes 1 12 Smokeless Tobacco: Never Alcohol Use Standard Drinks/Week Comments No 0 (1 standard drink = 0.6 oz pur e alcohol) [facility] Utilities Answer Date Recorded In the past 12 months has [employer], gas, oil, or water company threatened [...] declined 05/25/2024 How often do you attend gnosticist or oriental orthodox serv ices? Patient declined [...] Score - Questions 1-9 0 /0 03/2022 [facility] Occupat ional Health - [...] any time in the past 12 m [facility], were you homeless or living [...] Miscellaneous Notes * Telephone Encounter - Jenae Ocasio, RN - 12/29/2024 9:21 AM CDT Refill denied - See Refusal reason documented in this encounter Plan of Treatment Upcoming Encounters Date Type Department Care Team (Late st Contact Info) Description 06/28/2025 9:00 AM CONSERVATION COORDINATOR Office Visit [facility] - Endocrinology - [place] [address] [place] [address] Chapito Garcia MD #[address] [phone] documented as of this encounter Visit Diagnoses Not on filedocumented in this encounter Care Teams Manager Critical Care Relationship Specialty Start Date End Date Sharon Moya MD [address] [place] [address] PCP - General Internal Medicine 09/16/21 Chapito Garcia MD #[address] [phone] Consulting Physician Endocrinology 12/25/21 Radha Mac DPM [address] [phone] Consulting Physician Podiatry 05/26/22 documented as of this encounter
--- OUTSIDE RECORDS SUMMARY | 2025-06-01 08:16 | XMS_ITS | Encounter Summary ---
Author Organization [facility] Address [address] [place] [address] Phone Care Team Providers Care Nonprofit Director Name Role Phone Sharon Moya MD Primary Care Provider [phone] Chapito Garcia MD Unavailable Radha Mac DPM Unavailable [phone] Reason for Visit * Reason Comments Medication Refill Encounter Details Date Type Department Care Team (Late st Contact Info) Description 12/26/[address] [facility] [address] [place] [address] Boni Chavez, BALANCE WHEEL HAND FILER, MINE LABORER [address] [place] [address] Medication Refill Social History Tobacco Use Types Packs/Day Years Used Date Smoking Tobacco: Former Cigarettes 1 12 Smokeless Tobacco: Never Alcohol Use Standard Drinks/Week Comments No 0 (1 standard drink = 0.6 oz pur e alcohol) [facility] Utilities Answer Date Recorded In the past 12 months has [employer] electric, gas, oil, or water company threatened [...] How often do you attend sikh or worship serv ices? Patient declined 05/25/2024 Do you [...] Score - Questions 1-9 0 /0 03/2022 [facility] of Occupat ional Health - [...] Telephone Encounter - Jenae Ocasio, RN - 12/26/2024 4:12 PM CDT Refill denied - See Refusal reason documented in this encounter Plan of Treatment Upcoming Encounters Date Type Department Care Team (Late st Contact Info) Description 06/28/2025 9:00 AM BRAKE RELINER Office Visit [facility] - Endocrinology - [place] [address] [place] [address] Chapito Garcia MD [address] [phone] documented as of this encounter Visit Diagnoses Not on filedocumented in this encounter Care Teams Nonprofit Director Relationship Specialty Start Date End Date Sharon Moya MD [address] [place] [address] PCP - General Internal Medicine 09/16/21 Chapito Garcia MD #[address] [phone] Consulting Physician Endocrinology 12/25/21 Radha Mac DPM [address] [phone] Consulting Physician Podiatry 05/26/22 documented as of this encounter
--- OUTSIDE RECORDS SUMMARY | 2025-06-01 08:16 | XMS_ITS | Encounter Summary ---
Author Organization [facility] Address [address] [place] [address] Phone Care Team Providers Care Acid Tester Name Role Phone Sharon Moya MD Primary Care Provider [phone] Chapito Garcia MD Unavailable Radha Mac DPM Unavailable [phone] Encounter Details Date Type Department Care Team (Late st Contact Info) Description 06/27/2024 Nursing Facility [facility] [address] [place] [phone] Fiorella Horn, ENTRY LEVEL ACCOUNTING CLERK, PILLOW AGENT [address] [place] [address] Social History Tobacco Use Types Packs/Day Years Used Date Smoking Tobacco: Former Cigarettes 1 12 Smokeless Tobacco: Never Alcohol Use Standard Drinks/Week Comments No 0 (1 standard drink = 0.6 oz pur e alcohol) [facility] Utilities Answer Date Recorded In the past 12 months has [email or web address], gas, oil, or water [employer] threatened to shut off services in your home? Patient declined 05/25/2024 Social Connection and Isolation Panel Answer Date Recorded In a typical week, how many times do you talk on the phone with family, friends, or neighbors? Patient declined 05/25/2024 How often do you get togethe r with friends or relatives? Patient declined 05/25/2024 How often do you attend roman catholic or voodoo serv ices? Patient declined 05/25/2024 [...] Score - Questions 1-9 0 0 03/2022 [facility] of Occupat ional [facility] - Occupational Stress Questionnaire Answer Date [...] any time in the past 12 m [facility], were you homeless or living in a [...] st Contact Info) Description 06/28/2025 9:00 AM HTML WEB DEVELOPER Office Visit [facility] - Endocrinology [facility] [address]2 [place] [address] Chapito Garcia MD [address] [address] documented as of this encounter Visit Diagnoses Not on filedocumented in this encounter Care Teams Acid Tester Relationship Specialty Start Date End Date Sharon Moya MD [address] [place], [place] [id number] PCP - General Internal Medicine 09/16/21 Chapito Garcia MD [address] [address] Consulting Physician Endocrinology 12/25/21 Radha Mac DPM [address] [address] Consulting Physician Podiatry 05/26/22 documented as of this encounter
--- OUTSIDE RECORDS SUMMARY | 2025-06-01 08:16 | XMS_ITS | Encounter Summary ---
Author Organization [facility] Address [address] [place] [address] Phone Care Team Providers Care Pin Sticker Name Role Phone Sharon Moya MD Primary Care Provider [phone] Chapito Garcia MD Unavailable Radha Mac DPM Unavailable [phone] Encounter Details Date Type Department Care Team (Late st Contact Info) Description 06/15/2024 Nursing Facility [facility] [address] [place] [phone] Fiorella Horn, WIND FIELD SERVICE MANAGER, DENTAL COORDINATOR [address] [place] [address] Social History Tobacco Use Types Packs/Day Years Used Date Smoking Tobacco: Former Cigarettes 1 12 Smokeless Tobacco: Never Alcohol Use Standard Drinks/Week Comments No 0 (1 standard drink = 0.6 oz pur e alcohol) [facility] Utilities Answer Date Recorded In the past 12 months has [employer], gas, oil, or water [employer] threatened to shut off services in your home? Patient declined 05/25/2024 Social Connection and Isolation Panel Answer Date Recorded In a typical week, how many times do you talk on the phone with family, friends, or neighbors? Patient declined 05/25/2024 How often do you get togethe r with friends or relatives? Patient declined 05/25/2024 How often do you attend uatsdin or scientology serv ices? Patient declined 05/25/2024 [...] Score - Questions 1-9 0 0 03/2022 [facility] of Occupat ional [facility] - Occupational Stress Questionnaire Answer Date Recorded [...] st Contact Info) Description 06/28/2025 9:00 AM PAYROLL SECRETARY Office Visit [facility] - Endocrinology [facility] [address] [place] [address] Chapito Garcia MD [address] [address] documented as of this encounter Visit Diagnoses Not on filedocumented in this encounter Care Teams Pin Sticker Relationship Specialty Start Date End Date Sharon Moya MD [address] [place], [place] [phone] PCP - General Internal Medicine 09/16/21 Chapito Garcia MD #[address] [address] Consulting Physician Endocrinology 12/25/21 Radha Mac DPM #[address] [address] Consulting Physician Podiatry 05/26/22 documented as of this encounter
--- OUTSIDE RECORDS SUMMARY | 2025-06-01 08:16 | XMS_ITS | Clinical Summary ---
Author Organization [facility] Address [address] [place] [phone] Phone Care Team Providers Care Spindle Carver Name Role Phone Sharon Moya Primary Care Provider [phone] Allergies Active Allergy Reactions Criticality Noted Date [...] Diarrhea Low 03/02/2019 Medications ergocalciferol (VITAMIN D-2) 75304 units capsule take 1 capsule by oral [...] 03/11/20 21 Active Blood Glucose Monitoring Suppl (NewCell Verio Flex System) w/Device kit USE TO [...] 300 mcg by mouth daily Active Lancets (NewCell Delica Plus [id number]) misc 4 TIMES A DAY 09/26/19 22 [...] Nasal saline spray (Simply saline, Little Remedies, [place], [place]ay) 2 second sprays or 2 squeezes into [...] (05/03/2019): Added automatically from request for surgery [id number] Chronic kidney disease, stage 3 (moderate) 12/15 [...] Note: 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 BY UROLOGIST Urge incontinence 02/11/2011 Immunizations Immunization Administration Dates Next Due Influenza Injectable Mdck Qu adrivalent Preservative 07/02/2021 Influenza Split High Dose Pr eservative Free IM 05/23/2014 Influenza TIV (IM) 03/06/2022 Influenza Trivalent Adjuvanted 08/07/2018 Influenza Vac Tissue-culture d Subunit Quadrivalent 04/23/2020 Influenza, Injectable, Mdck, Preservative Free, Quadrivalt 04/23/2020 Influenza, Injectable, Quadrivalent 04/12/2019,0 07/12/1999 Influenza, Injectable, Quadr ivalent, Preservative Free 04/18/2018 Influenza, Unspecified 04/12/2019 Influenza, split virus, trivalent, PF 05/02/2017 ,04/11/2016,04/11/2015 Moderna Sars-cov-2 Vaccination 10/17/2020 PPD Test 07/12/1999 [...] on file Legal Sex Female 8:46 AM [facility] Gender Identity Not on file Sexual Orientation [...] Completed 02/13/2021, 08/25/2016, 07/12/[address] [place] [phone] [employer] MEDICARE Care Teams Spindle Carver Relationship Specialty Start Date End Date Sharon Moya PCP - General Internal Medicine 11/05/21
--- OUTSIDE RECORDS SUMMARY | 2025-06-01 08:16 | XMS_ITS | Encounter Summary ---
Author Organization [facility] Address [address] [place] [address] Phone Care Team Providers Care Guide Escort Name Role Phone Sharon Moya MD Primary Care Provider [phone] Chapito Garcia MD Unavailable Radha Mac DPM Unavailable [phone] Encounter Details Date Type Department Care Team (Late st Contact Info) Description 05/30/2024 Nursing Facility [facility]TERM [facility] [address] [place] [phone] Fiorella Horn, HIGH PRESSURE CLEANER, AERIAL PHOTOGRAPHER [address] [place] [address] Social History Tobacco Use Types Packs/Day Years Used Date Smoking Tobacco: Former Cigarettes 1 12 Smokeless Tobacco: Never Alcohol Use Standard Drinks/Week Comments No 0 (1 standard drink = 0.6 oz pur e alcohol) [facility] Utilities Answer Date Recorded In the past 12 months has [employer], gas, oil, or water [employer] threatened to shut off services in your home? Patient declined 05/25/2024 Social Connection and Isolation Panel Answer Date Recorded In a typical week, how many times do you talk on the phone with family, friends, or neighbors? Patient declined 05/25/2024 How often do you get togethe r with friends or relatives? Patient declined 05/25/2024 How often do you attend druze or restorationism serv ices? Patient declined 05/25/2024 Do you [...] Score - Questions 1-9 0 0 03/2022 [facility] of Occupat ional [facility] - Occupational Stress Questionnaire Answer [...] st Contact Info) Description 06/28/2025 9:00 AM CALL CENTRE SUPERVISOR Office Visit [facility] - Endocrinology [facility] [address] [place] [address] Chapito Garcia MD [address] [address] documented as of this encounter Visit Diagnoses Not on filedocumented in this encounter Care Teams Guide Escort Relationship Specialty Start Date End Date Sharon Moya MD [address] [place], [place] [phone] PCP - General Internal Medicine 09/16/21 Chapito Garcia MD [address] [address] Consulting Physician Endocrinology 12/25/21 Radha Mac DPM [address] [address] Consulting Physician Podiatry 05/26/22 documented as of this encounter
--- OUTSIDE RECORDS SUMMARY | 2025-06-01 08:16 | XMS_ITS | Encounter Summary ---
Author Organization [facility] Address [address] [place] [address] Phone Care Team Providers Care Staff Air Defense Officer Name Role Phone Sharon Moya MD Primary Care Provider [phone] Chapito Gracia MD Unavailable Radha Mac DPM Unavailable [phone] Encounter Details Date Type Department Care Team (Late st Contact Info) Description 02/21/[address] [facility] Services [address] [place] [address] Edwin Gupta MD [address] [address] Other specified arthritis, unspecified site (Primary Dx) Social History Tobacco Use Types Packs/Day Years Used Date Smoking Tobacco: Former Cigarettes 1 12 Smokeless Tobacco: Never Alcohol Use Standard Drinks/Week Comments No 0 (1 standard drink = 0.6 oz pur e alcohol) [facility] Utilities Answer Date Recorded In the past 12 months has [employer], gas, oil, or water company threatened [...] declined 05/25/2024 How often do you attend moravian or congregational serv ices? Patient declined 05/25/2024 Do you belong to any clubs o r organizations such as moravian groups, unions, fraternal or athletic groups, or [...] Score - Questions 1-9 0 /0 03/2022 [facility] of Occupat ional Health - Occupational Stress [...] in the past 12 m [facility], were you homeless or living in a [...] st Contact Info) Description 06/28/2025 9:00 AM PLANNING ASSOCIATE Office Visit [facility] - Endocrinology - [place] [address] [place] [address] Chapito Garcia MD [address] [address] Scheduled Orders Name Type Priority Associated Diagnoses [...] Primary documented in this encounter Care Teams Staff Air Defense Officer Relationship Specialty Start Date End Date Sharon Moya MD [address] [facility] [address] [place] [address] PCP - General Internal Medicine 09/16/21 Chapito Garcia MD [address] [address] Consulting Physician Endocrinology 12/25/21 Radha Mca DPM #[address] [address] Consulting Physician Podiatry 05/26/22 documented as of this encounter
--- OUTSIDE RECORDS SUMMARY | 2025-06-01 08:16 | XMS_ITS | Encounter Summary ---
Author Organization [facility] Address [address] [place] [address] Phone Care Team Providers Care Sheet Rock Applier Name Role Phone Sharon Myoa MD Primary Care Provider [phone] Chapito Garcia MD Unavailable Radha Mac DPM Unavailable [phone] Encounter Details Date Type Department Care Team (Late st Contact Info) Description 06/21/2024 Nursing Facility [facility] [address] [place] [phone] Fiorella Horn, WATCH ASSEMBLY INSPECTOR, DEBURRER MACHINE [address] [place] [address] Social History Tobacco Use Types Packs/Day Years Used Date Smoking Tobacco: Former Cigarettes 1 12 Smokeless Tobacco: Never Alcohol Use Standard Drinks/Week Comments No 0 (1 standard drink = 0.6 oz pur e alcohol) [facility] Utilities Answer Date Recorded In the past 12 months has [employer], gas, oil, or water [employer] threatened to shut off services in your home? Patient declined 05/25/2024 Social Connection and Isolation Panel Answer Date Recorded In a typical week, how many times do you talk on the phone with family, friends, or neighbors? Patient declined 05/25/2024 How often do you get togethe r with friends or relatives? Patient declined 05/25/2024 How often do you attend rastafarian or alevism serv ices? Patient declined 05/25/2024 [...] Questions 1-9 0 0 03/2022 [facility] of Occupat ional [facility] - Occupational Stress Questionnaire Answer Date [...] in the past 12 m [facility], were you homeless or living in [...] st Contact Info) Description 06/28/2025 9:00 AM TRACK LAYER Office Visit [facility] - Endocrinology [facility] #[address] [place] [address] Chapito Garcia MD [address] [address] documented as of this encounter Visit Diagnoses Not on filedocumented in this encounter Care Teams Sheet Rock Applier Relationship Specialty Start Date End Date Sharon Moya MD [address] [place], [place] [phone] PCP - General Internal Medicine 09/16/21 Chapito Garcia MD [address] [address] Consulting Physician Endocrinology 12/25/21 Radha Mac DPM [address] [address] Consulting Physician Podiatry 05/26/22 documented as of this encounter
--- OUTSIDE RECORDS SUMMARY | 2025-06-01 08:16 | XMS_ITS | Encounter Summary ---
Author Organization [facility] Address [address] [place] [address] Phone Care Team Providers Care Candle Pourer Name Role Phone Sharon Moya MD Primary Care Provider [phone] Chapito Garcia MD Unavailable Radha Mac DPM Unavailable [phone] Reason for Visit * Reason Onset Date Comments Medication Refill 01/01/2025 Encounter Details Date Type Department Care Team (Late st Contact Info) Description 01/01/2025 Refill [facility] - [facility]ology - [place] [address] [place] [address] Chapito Garcia MD [address] [address] Medication Refill Social History Tobacco Use Types Packs/Day Years Used Date Smoking Tobacco: Former Cigarettes 1 12 Smokeless Tobacco: Never Alcohol Use Standard Drinks/Week Comments No 0 (1 standard drink = 0.6 oz pur e alcohol) [facility] Utilities Answer Date Recorded In the past 12 months has [employer], gas, oil, or water company threatened to [...] How often do you attend mormon or tenriism serv ices? Patient declined 05/25/2024 Do you [...] - Questions 1-9 0 /0 03/2022 [facility] of Occupat ional Health [...] st Contact Info) Description 06/28/2025 9:00 AM SHANK CARRIER Office Visit [facility] - Endocrinology [facility] #[address] [place] [address] Chapito Garcia MD #[address] [phone] documented as of this encounter Visit Diagnoses Not on filedocumented in this encounter Care Teams Candle Pourer Relationship Specialty Start Date End Date Sharon Moya MD [address] [place] [address] PCP - General Internal Medicine 09/16/21 Chapito Garcia MD #[address] [address] Consulting Physician Endocrinology 12/25/21 Radha Mac DPM #[address] [address] Consulting Physician Podiatry 05/26/22 documented as of this encounter
--- OUTSIDE RECORDS SUMMARY | 2025-06-01 08:16 | XMS_ITS | Clinical Summary ---
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 Active furosemide (LASIX) 20 mg tabletIndications: Edema,hypertension Take 1 tablet (20 mg total) by mouth daily 30 tablet 1 10/13/19 20 Active trimethoprim (TRIMPEX) 100 mg tablet daily 05/23/20 20 Active senna (SENOKOT) 8.6 mg tablet Take 1 tablet by mouth nightly Active amLODIPine (NORVASC) 5 mg tablet 05/01/20 21 Active citalopram (CeleXA) 20 mg tablet 08/12/19 [...] liquid every 4 hours 04/14/20 21 Active fluconazole (DIFLUCAN) 150 mg tablet 02/12/20 [...] wheelchair device as directed 11/01/19 19 Active miscellaneous medical supply misc as directed 12/10/19 18 Active blood-glucose meter misc USE TO CHECK BLOOD SUGAR THREE TIMES DAILY 08/22/19 22 Active diaper,brief,adult ,disposable misc as directed 03/30/20 18 Active diabetic supplies, miscellan. misc as directed 01/26/20 19 Active pen needle, diabetic 32 gauge x 3/16 needle as directed Act raleth lancets-blood glucose strips 30 gauge combo pack 4 TIMES A DAY 09/26/19 22 Active polyethylene glycol (MIRALAX) 17 gram packet 12/25/19 20 Active miscellaneous medical supply [facility] Power Scooter 12/25/19 18 Active NEBULIZER AND COMPRESSOR [facility] 04/14/20 21 Active underpads pad as directed 03/30/20 18 Active empty container (BD [employer]) [facility] 12/10/19 18 Active nystatin powder Apply topically 2 (two) [...] a day 10 capsule 10/14/19 24 Active linaCLOtide (LINZESS) 72 mcg capsule Take 1 capsule (72 mcg total) by mouth daily 30 capsule 11 11/30/19 24 Active Imvexxy Maintenance Pack 4 mcg insert vaginal insert 01/26/20 24 Active methenamine (HIPREX) 1 gram tablet 11/29/19 24 Active terconazole (TERAZOL 3) 0.8 % vaginal cream 01/21/20 24 Active sulfaSALAzine (AZULFIDINE) 500 mg tablet Take 1 tablet (500 mg total) by mouth daily 03/02/20 24 Active insulin aspart (NovoLOG) 100 unit/mL (3 mL) pen for injection Inject 8 Units under the skin 05/25/20 24 Active amoxicillin-clavul anate (AUGMENTIN) 500-125 mg per tablet Take 1 tablet by mouth 2 (two) times a day 01/04/20 25 Active benzonatate (TESSALON) 100 mg capsule TAKE 1 CAPSULE 3 TIMES A DAY BY ORAL ROUTE NEEDED FOR 5 DAYS, FOR COUGH. 12/23/19 25 Active doxycycline 100 mg tablet Take 1 tablet/capsule (100 mg total) by mouth 12/20/19 25 Active fluticasone-umecli din-vilanter (Trelegy Ellipta) 100-62.5-25 mcg inhalerIndications :Moderate persistent asthma without complication,SOB (shortness of breath) INHALE 1 PUFF BY MOUTH DAILY 60 each 11 01/25/20 25 Active lidocaine (LIDODERM) 5 % APPLY 1 PATCH BY TOPICAL ROUTE ONCE DAILY (MAY WEAR UP TO 12HOURS.) 04/12/20 25 Active albuterol HFA (PROVENTIL HFA,VENTOLIN HFA,PROAIR HFA) 90 mcg/actuation inhaler Inhale 2 puffs every 6 (six) hours as needed for wheezing or shortness of breath 1 each 11 04/24/20 25 Active primidone (MYSOLINE) 50 mg tablet Take 1 tab po bid 180 tablet 1 05/18/20 25 Active primidone (MYSOLINE) 50 mg tablet Take 1 tab po bid 180 tablet 1 01/02/20 25 025 Discontin ued(Reord er) Active Problems Problem Noted Date Diagnosed Date Chronic rheumatic arthritis 04/11/2025 Tremor 11/26/2024 Personal history of colonic polyps 12/15/2023 Encounter for screening colonoscopy 12/15/2023 Epistaxis 06/09/2023 Assessment & Plan (06/09/2023 1:41 PM DIRECTOR OF PUPIL PERSONNEL PROGRAM): Nasal saline spray (Simply saline, [employer], [place], [place]) 2 second sprays or 2 squeezes into [...] (07/30/2022): Added automatically from request for surgery [id number] Assessment & Plan (08/06/2022 8:36 PM DIRECTOR OF PUPIL PERSONNEL PROGRAM): Schedule sigmoidoscopy and treatment of hemorrhoids. Hemorrhoids 07/30/2022 Overview (07/30/2022): Added automatically from request for surgery [id number] Coronary artery disease invo lving [place] coronary artery of [place] heart without angina pectoris 02/25/2022 Coronary artery calcification 02/25/2022 Chronic pain 02/25/2022 Constipation 02/25/2022 Assessment & Plan (08/06/2022 8:43 PM DIRECTOR OF PUPIL PERSONNEL PROGRAM): Chronic constipation. Start Linzess 72 Mcg daily. [...] Nasal saline spray (Simply saline, [employer], [place], [place]) 2 second sprays or 2 squeezes into [...] Assessment & Plan (06/03/2021 2:53 PM DIRECTOR OF PUPIL PERSONNEL PROGRAM): Nasal saline spray (Simply saline, [employer], [place], [place]) 2 second sprays or 2 squeezes into [...] Assessment & Plan (07/15/2020 1:19 PM DIRECTOR OF PUPIL PERSONNEL PROGRAM): Start Nasal saline spray (Simply saline, [employer], [place], [place]) 2 second sprays or 2 squeezes into [...] Assessment & Plan (05/21/2020 10:09 AM DIRECTOR OF PUPIL PERSONNEL PROGRAM): Nasal saline spray (Simply saline, [employer], [place], [place]) 2 second sprays or 2 squeezes into [...] Assessment & Plan (08/09/2024 8:37 AM DIRECTOR OF PUPIL PERSONNEL PROGRAM): Finish Doxycycline Follow up as needed Assessment & Plan (06/09/2023 1:40 PM DIRECTOR OF PUPIL PERSONNEL PROGRAM): Nasal saline spray (Simply saline, [employer], [place], [place]) 2 second sprays or 2 squeezes into [...] Assessment & Plan (06/30/2022 10:04 AM DIRECTOR OF PUPIL PERSONNEL PROGRAM): Nasal saline spray (Simply saline, [employer], [place], [place]) 2 second sprays or 2 squeezes into [...] Assessment & Plan (07/23/2021 12:07 PM DIRECTOR OF PUPIL PERSONNEL PROGRAM): Augmentin with a meal twice daily for 10 days, call if no improvement Continue Atrovent 2 sprays into each nostril while looking down over the sink, do not sniff in or blow nose after use for at least 30 minutes 1-2 times daily Assessment & Plan (05/21/2020 8:56 PM DIRECTOR OF PUPIL PERSONNEL PROGRAM): Nasal saline spray (Simply saline, [employer], [place], [place]) 2 second sprays or 2 squeezes into [...] (10/19/2018): Added automatically from request for surgery [id number] Bilateral primary osteoarthritis of knee 02/03/2017 02/09/2022 Encounters Date Type Department Care Team Description 05/31/2025 8:00 AM DIRECTOR OF PUPIL PERSONNEL PROGRAM Infusion [address] [place] [phone] Rheumatoid arthritis, involving unspecified site, unspecified whether rheumatoid factor present (HCC) (Primary Dx) 05/23/[address] [place] [phone] Momo Dhaliwal, DWAYNE 05/22/[address] [place] [phone] Radha Santana RN 05/21/[address] [place] [phone] Radha Santana, DWAYNE 05/11/2025 11:45 AM CDT Office Visit [facility] [address] [place] [address] [address] [place] [address] Wu Saleem MD Thrombocytopenia, unspecified (Primary Dx) 05/11/2025 11:15 AM CDT Lab [facility]fusion [place] [address] [facility] [address] [place] [address] Thrombocytopenia, unspecified (Primary Dx) 05/10/2025 Telephone [facility] [address] [place] [address] [address] [place] [address] Joan Erickson CLT 05/09/2025 Telephone [facility] Patient Access [address] [place] [address] Edwin Gupta MD 05/08/[address] [phone] Catarina Bean, JARETT Medical Question/Miscellaneou s 05/08/2025 Telephone [facility] Infusion [address] [place] [phone] Kari Resendiz, RN 05/08/2025 Orders Only [facility] Infusion [address] [place] [phone] Kari Resendiz, RN 05/02/2025 Orders Only [facility] Infusion [address] [address] Nicolle Cohn, RN 05/02/2025 Orders Only [address] [address] Nicolle Cohn, RN 05/02/2025 Orders Only [address] [address] Olga Espino RN 04/24/2025 1:30 PM CDT Office Visit [facility] [place] [address] [facility] [address] [place] [phone] George Dominguez MD Moderate persistent asthma without complication (Primary Dx); Nocturnal hypoxemia; Chronic sinusitis, unspecified location 04/12/2025 Orders Only [facility] [address] [place] [address] Karie Wilson RN 04/11/2025 Orders Only [facility] [address] [place] [address] Olga Espino RN 04/02/2025 1:25 PM CDT Lab [address] [phone] 03/20/2025 3:00 PM CDT Orders Only [facility] [address] [place] [address] 03/02/2025 2:40 PM CDT Lab [address] [address] from Last 3 Months Immunizations Immunization Administration [...] High D ose, Split, Preservative Free, Intramuscular 03/16/2025,05/05/2024,05/23/2014 Influenza, Trivalent, IM (MDV) 03/06/2022 Influenza, Trivalent, Preser vative Free, Intramuscular 05/02/2017,04/11/2016,04/11/2015 Influenza, Unspecified 03/06/2022,04/12/2019 Moderna SARS-CoV-2 Monovalen t Vaccination (12+ YRS) 10/30/2022 PPD TEST 07/12/1999 Pneumococcal Conjugate PCV 13 08/25/2016 Pneumococcal Conjugate Pcv20 09/22/2024 Pneumococcal Polysaccharide PPV23 02/13/2021,07/1999 Pneumococcal, Unspecified 07/12/1999 Sars-CoV-2, Unspecified 11/05/2020 Tdap 02/27/2017 Tetanus Toxoid, Unspecified 07/12/1999 ZOSTER Recombinant 12/12/2024,10/12/2024 Surgical History Surgery Date Site/Laterality Comments LUMBAR [...] k idney disease Seizures (HCC) years ago Chronic rheumatic arthritis 04/11/2025 Family History Medical History Relation Name Comments [...] often do you attend chur ch or episcopalian services? 1 to 4 times per year [...] file Legal Sex Female 12:39 AM DIRECTOR OF PUPIL PERSONNEL PROGRAM Gender Identity Not on file Sexual Orientation Not on file Obstetrics History Para Term AB IAB SAB Ectopic Multiple Livin g Live Births 0 0 0 0 0 0 0 0 0 0 0 Last Filed Vital Signs Vital Sign Reading Time Taken Comments Blood Pressure 161/62 05/31/2025 8:52 AM DIRECTOR OF PUPIL PERSONNEL PROGRAM Pulse 68 05/31/2025 8:52 AM DIRECTOR OF PUPIL PERSONNEL PROGRAM Temperature 36.6 C (97.9 F) 05/31/2025 8:17 AM DIRECTOR OF PUPIL PERSONNEL PROGRAM Respiratory Rate 20 05/31/2025 8:17 AM DIRECTOR OF PUPIL PERSONNEL PROGRAM Oxygen Saturation 96% 05/31/2025 8:52 AM DIRECTOR OF PUPIL PERSONNEL PROGRAM Inhaled Oxygen Concentration - - Weight 88.9 kg (195 lb 14.4 oz) 05/31/2025 8:52 AM DIRECTOR OF PUPIL PERSONNEL PROGRAM Height 175.3 cm (5' 9) 05/31/2025 8:52 AM DIRECTOR OF PUPIL PERSONNEL PROGRAM Body Mass Index 28.93 05/31/2025 8:52 AM DIRECTOR OF PUPIL PERSONNEL PROGRAM Plan of Treatment Health Maintenance Due Date [...] 08/2019, 10/18/2018, Additional history exists Covid-19 Vaccine (2024-08 6 season) 2025 10/12/2024, 10/25/2023, 10/30/2022, Additional history exists Osteoporosis Screening-Bone Density Scan 11/02/2025 11/03/2023 Breast Cancer Screening-Mammogram 01/15/2026 01/15/2025, 12/10/2023, 09/28/2022, Additional history exists eGFR 05/31/2026 05/31/2025, 04/13, 04/02/2025, Additional history exists DTaP/Tdap/Td Vaccine (2 - Td or Tdap) 02/27/2027 02/27/2017 Pneumococcal vaccine 65+ Completed 025, 02/13/2021, 08/25/2016, Additional history exists Zoster Vaccine Completed 12/12/2024, 10/12/2024 Hepatitis B Screening Completed 03/02/2025, 10/13/2 020 Hepatitis C Screening Completed 03/02/2025 , 07/23/2023, 10/28/2014 Influenza Vaccine Completed 03/16/2025, , 06/25/2023, Additional history exists Medical Devices Implanted Type Area Blending Operator Device Identifier Shelf Expiration Date Model / Serial / Lot Shunt-11/05/2014 Implanted:2014 by Jerzy Redman MD (Quantity not on file) Shunt Right: Brain [employer] X [id number] / 0 / [id number] [employer] [id number] Attune Cementless Rotate Platform Knee 7 Baseplate Tibial - [id number] Implanted:Qty: 1 on 11/14/2018 by Stuart Douglas MD at [facility] Right: Knee [employer] 08/11/2027 [id number] / / [id number] [employer] [id number] Attune Cruciate Retain Cementless Knee Right 5 Component Femoral - [id number] Implanted:Qty: 1 on 11/14/2018 by Stuart Douglas MD at [facility] Right: Knee [employer] 02/09/2028 [id number] / / [id number] [employer] [id number] Attune 5mm Cruciate Retaining Rotate Platform Knee 5 Insert - [id number] Implanted:Qty: 1 on 11/14/2018 by Stuart Douglas MD at [facility] Right: Knee [employer] 08/11/2023 [id number] / / [id number] Procedures Procedure Name Priority Date/Time Associated Diagnosis Comments EGFR Routine 05/31/2025 8:45 AM DIRECTOR OF PUPIL PERSONNEL PROGRAM Rheumatoid arthritis, involving unspecified site, unspecified whether rheumatoid factor present (HCC) CBC WITHOUT DIFFERENTIAL Routine 05/31/2025 8:45 AM DIRECTOR OF PUPIL PERSONNEL PROGRAM DIFFERENTIAL AUTO Routine 05/31/2025 8:4 5 AM DIRECTOR OF PUPIL PERSONNEL PROGRAM Rheumatoid arthritis, involving unspecified site, unspecified whether rheumatoid factor present (HCC) ERYTHROCYTE SEDIMENTATION RATE Routine 05/31/2025 8:45 AM DIRECTOR OF PUPIL PERSONNEL PROGRAM Rheumatoid arthritis, involving unspecified site, unspecified whether rheumatoid factor present (HCC) COMPREHENSIVE METABOLIC PANEL Routine 05/31/2025 8:45 AM DIRECTOR OF PUPIL PERSONNEL PROGRAM Rheumatoid arthritis, involving unspecified site, unspecified whether rheumatoid factor present (HCC) URINALYSIS AND REFLEX TO MICROSCOPIC AND CULTURE Routine 05/31/2025 8:30 AM DIRECTOR OF PUPIL PERSONNEL PROGRAM Rheumatoid arthritis, involving unspecified site, unspecified whether rheumatoid factor present (HCC) EGFR Routine 05/11/2025 11:45 AM CDT Thrombocytopenia, unspecified DIFFERENTIAL AUTO Routine 05/11/2025 11: 45 AM CDT Thrombocytopenia, unspecified CBC WITH AUTO DIFFERENTIAL Routine 05/11/2025 11:45 AM CDT Thrombocytopenia, unspecified COMPREHENSIVE METABOLIC PANEL Routine 05/11/2025 11:45 AM CDT Thrombocytopenia, unspecified EGFR Routine 04/02/2025 1:55 PM CDT PROTEIN [...] TO MICROSCOPIC Routine 03/02/2025 2:50 PM CDT SCREENING MAMMOGRAM BILATERAL W RAUL Schedule Routine, [...] to Health Maintenance Results * (ABNORMAL) eGFR (05/31/2025 8:45 AM DIRECTOR OF PUPIL PERSONNEL PROGRAM) eGFR 43(L) >=60 mL/min/1. 73 m2 Comment: [...] was last reviewed 2021. Testing performed by: [place], [address] Blood 05/31/2025 8:45 AM DIRECTOR OF PUPIL PERSONNEL PROGRAM 05/31/2025 8:53 AM DIRECTOR OF PUPIL PERSONNEL PROGRAM us Edwin Gupta MD LAB BLOOD ORDERABLES Final Res ult [facility] ([place]) [address] [facility] Department [place] [address] * Differential, auto (05/31/2025 8:45 AM DIRECTOR OF PUPIL PERSONNEL PROGRAM) [facility] Neutrophil abs 3.96 1.50 - 6.50 K/cumm Comment:Testing performed by : [facility], [place], [address] Imm gran abs 0.05 0.00 - 0.10 K/cumm [facility] ([place]) Comment:Testing performed by : [facility], [place], [address] Lymphocyte abs 1.87 0.80 - 3.30 K/cumm [facility] ([place]) Comment:Testing performed by : [place], [address] Monocyte abs 0.70 0.20 - 0.80 K/cumm [facility] ([place]) Comment:Testing performed by : [facility], [facility], [place], [address] Eosinophil abs 0.05 0.00 - 0.50 K/cumm [facility] ([place]) Comment:Testing performed by : [facility], [facility], [place], [address] Basophil abs 0.04 0.00 - 0.10 K/cumm [facility] ([place]) Comment:Testing performed by : [facility], [facility], [place], [address] Neutrophil pct 59.5 % [facility] ([place]) Comment: Interpretive Data Percent cell count reference ranges are not reported, since discordance with absolute values may lead to misinterpretation of CBC data. Current Interpretive Data was last revised on 2017. Testing performed by: [facility], [place], [address] Imm gran pct 0.7 % [facility] ([place]) Comment: Interpretive Data Percent cell count reference ranges are not reported, since discordance with absolute values may lead to misinterpretation of CBC data. Current Interpretive Data was last revised on 2017. Testing performed by: [place], [address] Lymphocyte pct 28.0 % [facility] ([place]) Comment: Interpretive Data Percent cell count reference ranges are not reported, since discordance with absolute values may lead to misinterpretation of CBC data. Current Interpretive Data was last revised on 2017. Testing performed by: [place], [address] Monocyte pct 10.5 % [facility] ([place]) Comment: Interpretive Data Percent cell count reference ranges are not reported, since discordance with absolute values may lead to misinterpretation of CBC data. Current Interpretive Data was last revised on 2017. Testing performed by: [place], [address] Eosinophil pct 0.7 % [facility] ([place]) Comment: Interpretive Data Percent cell count reference ranges are not reported, since discordance with absolute values may lead to misinterpretation of CBC data. Current Interpretive Data was last revised on 2017. Testing performed by: [place], [address] Basophil pct 0.6 % [facility] ([place]) Comment: Interpretive Data Percent cell count reference ranges are not reported, since discordance with absolute values may lead to misinterpretation of CBC data. Current Interpretive Data was last revised on 2017. Testing performed by: [place], [address] Blood 05/31/2025 8:45 AM DIRECTOR OF PUPIL PERSONNEL PROGRAM 05/31/2025 8:53 AM DIRECTOR OF PUPIL PERSONNEL PROGRAM Edwin Gupta MD LAB BLOOD ORDERABLES Final Res ult Performing Organization Address City/[facility]/ZIP Co de Phone Number [facility] ([place]) [address] [place] [address] Department [place] [address] * Erythrocyte sedimentation rate (05/31/2025 8:45 AM DIRECTOR OF PUPIL PERSONNEL PROGRAM) Erythrocyte sedimentation rate 6 1 - 30 mm/hr Comment:Testing performed by : [place], [address] Blood 05/31/2025 8:45 AM DIRECTOR OF PUPIL PERSONNEL PROGRAM 05/31/2025 8:53 AM DIRECTOR OF PUPIL PERSONNEL PROGRAM Narrative [facility] ([place]) - 05/31/2025 9:22 AM DIRECTOR OF PUPIL PERSONNEL PROGRAM Fax labs to Dr Gupta [phone] Edwin Gupta MD LAB BLOOD ORDERABLES Final Res ult [facility] ([place]) [address] [place] [address] Department [place] [address] * (ABNORMAL) CBC without differential (05/31/2025 8:45 AM DIRECTOR OF PUPIL PERSONNEL PROGRAM) WBC 6.47 3.80 - 9.90 K/cumm Comment:Testing performed by : [place], [address] Hgb 13.0 11.9 - 15.5 g/dL [facility] ([place]) Comment:Testing performed by : [place], Hct 40.0 35.6 - 45.5 % [facility] ([place]) Comment:Testing performed by : [place], [place], Plt 113(L) 150 - 400 K/cumm [facility] ([place]) Comment:Testing performed by : [place], MPV 12.0 9.1 - 12.3 fL [facility] ([place]) Comment:Testing performed by : [place], RBC 4.16 3.90 - 5.20 M/cumm [facility] ([place]) Comment:Testing performed by : [place], MCV 96.2 81.3 - 96.4 fL [facility] ([place]) Comment:Testing performed by : [place], MCH 31.3 27.1 - 33.3 pg [facility] ([place]) Comment:Testing performed by : [place], MCHC 32.5 32.3 - 35.7 g/dL [facility] ([place]) Comment:Testing performed by : [place], RDW CV 13.2 11.1 - 14.9 % [facility] ([place]) Comment:Testing performed by : [place], R[place] SD 47.4 35.7 - 48.1 fL [facility] ([place]) Comment:Testing performed by : [place], NRBC abs 0.00 0.00 - 0.01 K/cumm [facility] ([place]) Comment:Testing performed by : [place], Blood 05/31/2025 8:45 AM DIRECTOR OF PUPIL PERSONNEL PROGRAM 05/31/2025 9:12 AM DIRECTOR OF PUPIL PERSONNEL PROGRAM us Edwin Gupta MD LAB BLOOD ORDERABLES Final Res ult [facility] ([place]) [address] [facility] Department [place] [address] * (ABNORMAL) Comprehensive metabolic panel (05/31/2025 8:45 AM DIRECTOR OF PUPIL PERSONNEL PROGRAM) Sodium 140 135 - 145 mmol/L Comment:Testing performed by : [facility], [place], [address] Potassium, pl 4.8 3.3 - 4.9 mmol/L [facility] ([place]) Comment:Testing performed by : [facility], [facility], [place], [address] Chloride 106 97 - 110 mmol/L [facility] ([place]) Comment:Testing performed by : [facility], [place], [address] CO2 26 22 - 32 mmol/L [facility] ([place]) Comment:Testing performed by : [facility], [place], [address] Anion gap 8 2 - 15 mmol/L [facility] Comment:Testing performed by : [facility], [place], [address] BUN 31(H) 6 - 25 mg/dL [facility] ([place]) Comment:Testing performed by : [facility], [place], [address] Creatinine 1.37(H) 0.60 - 1.10 mg/dL [facility] ([place]) Comment:Testing performed by : [facility], [place], [address] Glucose 105 70 - 199 mg/dL [facility] Comment: Interpretive Data Fasting glucose >/= 126 [...] was last revised 2022. Testing performed by: [facility], [place], [address] Calcium 9.6 8.5 - 10.3 mg/dL [facility] ([place]) Comment:Testing performed by : [facility], [place], [address] Bilirubin, total 0.2 0.1 - 1.2 mg/dL [facility] ([place]) Comment:Testing performed by : [facility], [place], [address] Protein, pl 6.0(L) 6.5 - 8.5 g/dL [facility] ([place]) Comment:Testing performed by : [facility], [place], [address] Albumin 3.9 3.5 - 5.0 g/dL [facility] ([place]) Comment:Testing performed by : [facility], [place], [address] Alk phos 48 40 - 130 Units/L [facility] ([place]) Comment:Testing performed by : [facility], [place], [address] ALT 11 7 - 45 Units/L [facility] ([place]) Comment:Testing performed by : [facility], [place], [address] AST 16 10 - 45 Units/L [facility] ([place]) Comment:Testing performed by : [facility], [place], [address] Blood 05/31/2025 8:45 AM DIRECTOR OF PUPIL PERSONNEL PROGRAM 05/31/2025 8:53 AM DIRECTOR OF PUPIL PERSONNEL PROGRAM Narrative [facility] ([place]) - 05/31/2025 9:17 AM DIRECTOR OF PUPIL PERSONNEL PROGRAM Fax labs to Dr Gupta [phone] us Edwin Gupta MD LAB BLOOD ORDERABLES Final Res ult [facility] [address] [facility] Department [place] [address] * Urinalysis reflex to microscopic and culture Urine (05/31/2025 8:30 AM DIRECTOR OF PUPIL PERSONNEL PROGRAM) Color, ur Straw Yellow Comment:Testing performed by : [facility], [place], [address] Clarity, ur Clear Clear DY[facility] Gray ([place]) Comment:Testing performed by : [facility], [facility], [place], [address] Specific gravity, ur 1.007 1.003 - 1.030 [facility] ([place]) Comment:Testing performed by : [facility], [place], [address] pH, urine 6.5 [facility] ([place]) Comment: Interpretive Data U rine pH is affected by diet, medications, systemic acid-base disturbances, and renal tubular function. pH may affect urinary stone formation. For example, urine pH below 6.0 may help reduce the tendency for calcium phosphate stones and pH greater than 6.0 may reduce the tendency for uric acid stone formation. Source: [facility] [employer] Current Interpretive Data was last revised on 2017 Testing performed by: [facility] [facility] [place], [address] Protein, ur ql Negative Negative [facility] ([place]) Comment:Testing performed by : [facility], [place], [address] Glucose, ur ql Negative Negative [facility] ([place]) Comment:Testing performed by : [facility], [place], [address] Ketones, ur Negative Negative [facility]ERNER A [facility] ([place]) Comment:Testing performed by : [facility], [place], [address] Bilirubin, ur Negative Negative [facility] ([place]) Comment:Testing performed by : [facility], [place], [address] Blood, ur Negative Negative [facility] ([place]) Comment:Testing performed by : [facility], [place], [address] Urobilinogen, ur <2.0 <2.0 mg/dL [facility] ([place]) Comment:Testing performed by : [facility], [place], [address] Nitrite, ur Negative Negative [facility]ER A [facility] ([place]) Comment:Testing performed by : [facility], [place], [address] Leukocyte esterase, ur Negative Negative [facility] ([place]) Comment:Testing performed by : [facility], [place], [address] UA reflex comment Reflex conditions for microscopic UA and culture not met. [facility] ([place]) Comment:Testing performed by : [facility], [place], [address] Urine 05/31/2025 8:30 AM DIRECTOR OF PUPIL PERSONNEL PROGRAM 05/31/2025 8:41 AM DIRECTOR OF PUPIL PERSONNEL PROGRAM Narrative DYAN KELLY ([place]) - 05/31/2025 8:45 AM DIRECTOR OF PUPIL PERSONNEL PROGRAM Fax labs to Dr Gupta [phone] us Edwin Gupta MD LAB MICROBIOLOGY - GENERAL ORD ERABLES Final Result Performing Organization Address [facility] Co de Phone Number DYAN KELLY ([place]) [address] [place] [address] [place] [address] * (ABNORMAL) eGFR (05/11/2025 11:45 AM CDT) eGFR 38(L) >=60 mL/min/1. 73 m2 Comment: Interpretive Data [...] was last reviewed 2021. Testing performed by: [facility], [place], [address] Blood 05/11/2025 11:4 5 AM CDT 05/11/2025 12:09 PM CDT us Wu Saleem MD LAB BLOOD ORDERABLES Final Re sult DYAN KELLY ([place]) [address] [place] [address] Department [place] [address] * Differential, auto (05/11/2025 11:45 AM CDT) Neutrophil abs 3.82 1.50 - 6.50 K/cumm [facility] ([place]) Comment:Testing performed by : [facility] [address], Medical Office [facility] [address], [place] [address] Imm gran abs 0.06 0.00 - 0.10 K/cumm [facility] ([place]) Comment:Testing performed by : [facility] [address], Medical Office [facility] [address], [place] [address] Lymphocyte abs 2.06 0.80 - 3.30 K/cumm [facility] ([place]) Comment:Testing performed by : [facility] [address], Medical Office [facility] [address], [place] [address] Monocyte abs 0.77 0.20 - 0.80 K/cumm [facility] ([place]) Comment:Testing performed by : [facility] [address], Medical Office [facility] [address], [place] [address] Eosinophil abs 0.07 0.00 - 0.50 K/cumm [facility] ([place]) Comment:Testing performed by : [facility] [address], Medical Office [facility] [address], [place] [address] Basophil abs 0.05 0.00 - 0.10 K/cumm [facility] ([place]) Comment:Testing performed by : [facility] [address], Medical Office [facility] [address], [place] [address] Neutrophil pct 55.9 % [facility] ([place]) Comment: Interpretive Data Percent cell count reference ranges are not reported, since discordance with absolute values may lead to misinterpretation of CBC data. Current Interpretive Data was last revised on 2022. Testing performed by: [facility] [address], Medical Office [address], [place] [address] Imm gran pct 0.9 % [facility] ([place]) Comment: Interpretive Data Percent cell count reference ranges are not reported, since discordance with absolute values may lead to misinterpretation of CBC data. Current Interpretive Data was last revised on 2022. Testing performed by: [facility] [address], Medical Office [facility] [address], [place] [address] Lymphocyte pct 30.2 % [facility] ([place]) Comment: Interpretive Data Percent cell count reference ranges are not reported, since discordance with absolute values may lead to misinterpretation of CBC data. Current Interpretive Data was last revised on 2022. Testing performed by: [facility] [address], Medical Office [facility] [address], [place] [address] Monocyte pct 11.3 % [facility] ([place]) Comment: Interpretive Data Percent cell count reference ranges are not reported, since discordance with absolute values may lead to misinterpretation of CBC data. Current Interpretive Data was last revised on 2022. Testing performed by: [facility] [address], Medical Office [facility] [address], [place] [address] Eosinophil pct 1.0 % [facility] ([place]) Comment: Interpretive Data Percent cell count reference ranges are not reported, since discordance with absolute values may lead to misinterpretation of CBC data. Current Interpretive Data was last revised on 2022. Testing performed by: [facility] [address], Medical Office [facility] [address], [place] [address] Basophil pct 0.7 % [facility] ([place]) Comment: Interpretive Data Percent cell count reference ranges are not reported, since discordance with absolute values may lead to misinterpretation of CBC data. Current Interpretive Data was last revised on 2022. Testing performed by: [facility] [address], Medical Office [facility] [address], [place] [address] Blood 05/11/2025 11:4 5 AM CDT 05/11/2025 11:51 AM CDT us Wu Saleem MD LAB BLOOD ORDERABLES Final Re sult DYAN KELLY ([place]) 1 [facility] [place] [address] * (ABNORMAL) CBC with auto differential (05/11/2025 11:45 AM CDT) WBC 6.83 3.80 - 9.90 K/cumm [facility] ([place]) Comment:Testing performed by : [facility] [address], Medical Office [address], [place] [address] Hgb 13.6 11.9 - 15.5 g/dL [facility] ([place]) Comment:Testing performed by : [facility] [address], Medical Office [facility] [address], [place] [address] Hct 41.3 35.6 - 45.5 % [facility] ([place]) Comment:Testing performed by : [facility] [address], Medical Office [facility] [address], [place] [address] Plt 104(L) 150 - 400 K/cumm [facility] ([place]) Comment:Testing performed by : [facility] [address], Medical Office [facility] [address], [place] [address] MPV 12.2 9.1 - 12.3 fL [facility] ([place]) Comment:Testing performed by : [facility] [address], Medical Office [facility] [address], [place] [address] RBC 4.29 3.90 - 5.20 M/cumm [facility] ([place]) Comment:Testing performed by : [facility] [address], Medical Office [facility] [address], [place] [address] MCV 96.3 81.3 - 96.4 fL [facility] ([place]) Comment:Testing performed by : [facility] [address], Medical Office [facility] [address], [place] [address] MCH 31.7 27.1 - 33.3 pg [facility] ([place]) Comment:Testing performed by : [facility] [address], Medical Office [address], [place] [address] MCHC 32.9 32.3 - 35.7 g/dL [facility] ([place]) Comment:Testing performed by : [facility] [address], Medical Office [address], [place] [address] RDW CV 12.9 11.1 - 14.9 % [facility] ([place]) Comment:Testing performed by : [facility] [address], Medical Office [facility] [address], [place] [address] RDW SD 46.5 35.7 - 48.1 fL [facility] ([place]) Comment:Testing performed by : [facility] [address], Medical Office [facility] [address], [place] [address] Blood 05/11/2025 11:4 5 AM CDT 05/11/2025 11:51 AM CDT us Wu Saleem MD LAB BLOOD ORDERABLES Final Re sult [facility] ([place]) [address] [place] [address] Department [place] [address] * (ABNORMAL) Comprehensive metabolic panel (05/11/2025 11:45 AM CDT) Sodium 136 135 - 145 mmol/L Comment:Testing performed by : [facility], [place], [address] Potassium, pl 4.7 3.3 - 4.9 mmol/L [facility] ([place]) Comment:Testing performed by : [facility], [place], [address] Chloride 99 97 - 110 mmol/L [facility] ([place]) Comment:Testing performed by : [facility], [place], [address] CO2 25 22 - 32 mmol/L [facility] ([place]) Comment:Testing performed by : [facility], [place], [address] Anion gap 12 2 - 15 mmol/L [facility] ([place]) Comment:Testing performed by : [facility], [place], [address] BUN 43(H) 6 - 25 mg/dL [facility] ([place]) Comment:Testing performed by : [facility], [place], [address] Creatinine 1.49(H) 0.60 - 1.10 mg/dL [facility] ([place]) Comment:Testing performed by : [place], [address] Glucose 239(H) 70 - 199 mg/dL [facility] ([place]) Comment: Interpretive Data Fasting glucose >/= 126 [...] was last revised 2022. Testing performed by: [facility], [place], [address] Calcium 9.8 8.5 - 10.3 mg/dL [facility] ([place]) Comment:Testing performed by : [place], [address] Bilirubin, total 0.3 0.1 - 1.2 mg/dL [facility] ([place]) Comment:Testing performed by : [facility], [place], [address] Protein, pl 6.6 6.5 - 8.5 g/dL [facility] ([place]) Comment:Testing performed by : [facility], [place], [address] Albumin 4.2 3.5 - 5.0 g/dL [facility] ([place]) Comment:Testing performed by : [place], [address] Alk phos 53 40 - 130 Units/L [facility] ([place]) Comment:Testing performed by : [facility], [place], [address] ALT 8 7 - 45 Units/L [facility] ([place]) Comment:Testing performed by : [place], [address] AST 17 10 - 45 Units/L [facility] ([place]) Comment:Testing performed by : [facility], [place], [address] Blood 05/11/2025 11:4 5 AM CDT 05/11/2025 12:09 PM CDT us Wu Saleem MD LAB BLOOD ORDERABLES Final Re sult DYAN KELLY ([place]) [address] [facility] [place] [employer] [place] [address] * (ABNORMAL) eGFR (04/02/2025 1:55 PM CDT) [...] Final Res ult DYAN KELLY ([place]) 1 [facility] [place] [employer] [place] [address] * (ABNORMAL) Protein / creatinine ratio, urine, random (04/02/2025 1:55 PM CDT) Protein, ur, quant <6.0 mg/dL DYAN KELLY ([place]) Comment: Interpretive Data No reference range established. Current interpretive data was last revised 2018. Creatinine Ur 31.1 mg/dL [facility] ([place]) Comment: Interpretive Data No reference range established. Current interpretive data was last revised 2018. Protein/creatinin e ratio <192.9(H) 0.0 - 180.0 mg/g CR [facility] ([place]) Urine 04/02/2025 1:55 PM CDT 04/02/2025 3:05 PM CDT us Uche Phan MD LAB URINE ORDERABLES Final Res ult [facility] ([place]) 1 [facility] Department [place] [address] * (ABNORMAL) Renal function panel (04/02/2025 1:55 PM CDT) Sodium 139 135 - 145 mmol/L [facility] ([place] Potassium, pl 4.9 3.3 - 4.9 mmol/L [facility] ([place]) Chloride 105 97 - 110 mmol/L [facility] ([place]) CO2 22 22 - 32 mmol/L [facility] ([place]) Anion gap 12 2 - 15 mmol/L [facility] ([place] BUN 31(H) 6 - 25 mg/dL [facility] ([place]) Creatinine 1.37(H) 0.60 - 1.10 mg/dL [facility] ([place]) Glucose 114 70 - 199 mg/dL [facility] ([place] Comment: Interpretive Data Fasting glucose [...] 2022. Calcium 9.9 8.5 - 10.3 mg/dL [facility] ([place]) Phosphorus, pl 3.6 2.3 - 4.5 mg/dL [facility] ([place]) Albumin 4.1 3.5 - 5.0 g/dL [facility] ([place]) Blood 04/02/2025 1:55 PM CDT 04/02/2025 2:07 PM CDT us Uche Phan MD LAB BLOOD ORDERABLES Final Res ult Performing Organization Address City/[facility]/ZIP Co de Phone Number [facility] ([place]) 1 [facility] Department [place] [address] * (ABNORMAL) KATIE ab ql w/rflx to [...] last revised on 2020. Testing performed by: [facility], [address] [place] [address]., [address] KATIE, quant 1:160 titer [facility]AN AM [facility] ([place]) Comment:Testing performed by : [facility], [address] [facility], [place]., [address] KATIE, interp Speckled( A) [facility] ([place]) Comment:Testing performed by : [facility], [address] [place]., [address] Blood 03/02/2025 2:53 PM CDT 03/02/2025 6:06 PM CDT us Edwin Gupta MD LAB BLOOD ORDERABLES Final Res ult [facility] ([place]) 1 [facility] Department [place] [address] * (ABNORMAL) eGFR (03/02/2025 2:53 PM CDT) Pathologist [facility] [place] eGFR 36(L) >=60 mL/min/1. 73 m2 Comment: [...] LAB BLOOD ORDERABLES Final Res ult DYAN Rodriguez[place]) 1 [facility] Department [place] [address] * Differential, auto (03/02/2025 2:53 PM CDT) Neutrophil abs 2.86 1.50 - 6.50 K/cumm Imm gran abs 0.07 0.00 - 0.10 K/cumm [facility] ([place]) Lymphocyte abs 1.70 0.80 - 3.30 K/cumm [facility] ([place]) Monocyte abs 0.63 0.20 - 0.80 K/cumm [facility] ([place]) Eosinophil abs 0.06 0.00 - 0.50 K/cumm [facility] ([place]) Basophil abs 0.03 0.00 - 0.10 K/cumm [facility] ([place]) Neutrophil pct 53.4 % [facility] ([place]) Comment: Interpretive Data Percent cell count reference ranges are not reported, since discordance with absolute values may lead to misinterpretation of CBC data. Current Interpretive Data was last revised on 2017. Imm gran pct 1.3 % [facility] ([place]) Comment: Interpretive Data Percent cell count reference ranges are not reported, since discordance with absolute values may lead to misinterpretation of CBC data. Current Interpretive Data was last revised on 2017. Lymphocyte pct 31.8 % [facility] ([place]) Comment: Interpretive Data Percent cell count reference ranges are not reported, since discordance with absolute values may lead to misinterpretation of CBC data. Current Interpretive Data was last revised on 2017. Monocyte pct 11.8 % [facility] ([place]) Comment: Interpretive Data Percent cell count reference ranges are not reported, since discordance with absolute values may lead to misinterpretation of CBC data. Current Interpretive Data was last revised on 2017. Eosinophil pct 1.1 % [facility] ([place]) Comment: Interpretive [...] LAB BLOOD ORDERABLES Final Res ult DYAN ROBIN ([place]) 1 [facility] Department [place] [address] * TB test, quantiferon gold (03/02/2025 2:53 PM CDT) [facility] Quantiferon TB Gold Negative Negative [place] [facility] Comment: No interferon-gamma response to M. tuberculosis antigens was detected. Latent infection with M. tuberculosis is unlikely. A single negative result does not exclude infection with M. tuberculosis. In patients at high risk for M.tuberculosis infection, a second test should be considered in accordance with the 2017 ATS/IDSA/CDC Clinical Practice Guidelines for Diagnosis of Tuberculosis in Adults and Children [Jersonn DM et. al. Clin. Infect. Dis. 2017;64(2):111-115]. The reference range for the 'TB1 Ag minus Nil Result' and 'TB2 Ag minus Nil Result' is an Interferon-gamma level <0.35 IU/mL. TB-Nil 0.00 IUnits/mL [facility] ([place]) TB2-Nil 0.00 IUnits/mL [facility] ([place]) Mitogen-Nil 9.95 IUnits/mL [facility] ([place]) NIL 0.05 IUnits/mL [facility] ([place]) Comment: Test Performed by: [place] [address] Warp Dresser: Jose Guadalupe Coleman Ph.D.; CLIA# [id number] Blood 03/02/2025 2:53 PM CDT 03/02/2025 3:30 PM CDT us Edwin Gupta MD LAB BLOOD ORDERABLES Final Res ult [facility] ([place] 1 [facility] Department [place] [address] [place] ref [facility] * (ABNORMAL) CBC with auto differential (03/02/2025 2:53 PM CDT) [facility] WBC 5.35 3.80 - 9.90 K/cumm Hgb [...] ([place]) MCH 30.8 27.1 - 33.3 pg [facility] ([place]) MCHC 31.5(L) 32.3 - 35.7 g/dL [facility] ([place]) RDW CV 14.0 11.1 - 14.9 % [facility] ([place]) RDW SD 50.5(H) 35.7 - 48.1 fL [facility] ([place]) NRBC abs 0.00 0.00 - 0.01 K/cumm [facility] ([place]) Blood 03/02/2025 2:53 PM CDT 03/02/2025 3:22 PM CDT Edwin Gupta MD LAB BLOOD ORDERABLES Final Res ult Performing Organization Address City/[facility]/ZIP Co de Phone Number DYAN KELLY ([place]) 1 [facility] [place] [address] * Cyclic citrul peptide antibody, IgG (03/02/2025 2:53 PM CDT) CCP Ab <0.5 <=2.9 units/mL Comment: Interpretive data Negative: <3 units/mL Positive: > or equal to 3 units/mL Current interpretive data was last revised on 2016. Testing performed by: [facility], [address] [facility], [place]., [address] Blood 03/02/2025 2:53 PM CDT 03/02/2025 6:06 PM CDT Edwin Gupta MD LAB BLOOD ORDERABLES Final Res ult DYAN KELLY ([place]) 1 [facility] [employer] [place] [employer] [place] [address] * Hepatitis panel, acute Blood (03/02/2025 2:53 PM CDT) Hep A IgM Nonreactive Nonreactive Comment: Interpretive Data: If Hep A IgM Ab is reported as Equivocal, a new sample should be drawn in two weeks for testing. Current interpretive data was last revised on 19. Testing performed by: [facility], [address] [place] [address]., [address] Hep B core IgM Nonreactive Nonreactive Power KELLY ([place]) Comment: Interpretive Data If HepB Core IgM Ab is reported as Equivocal, a new sample should be drawn in two weeks for testing. Current interpretive data was last revised on 19. Testing performed by: [facility], [address] [place] [address]., [address] Hep C Ab Nonreactive Nonreactive DYAN KELLY [...] last revised on 2019. Testing performed by: [facility], [address] [place] [address]., [address] HepBsAg Nonreactive Nonreactive DYAN KELLY ([place]) Comment:Testing performed by : [address] [address] Blood 03/02/2025 2:53 PM CDT 03/05/2025 11:22 AM CDT us Edwin Gupta MD LAB MICROBIOLOGY - GENERAL ORD ERABLES Final Result DYAN KELLY ([place]) 1 [facility] Department [place] [address] * Hepatitis B surface antibody (immune status) [...] last revised on 19. Testing performed by: [facility], [address] [place] [address]., [address] Blood 03/02/2025 2:53 PM CDT 03/02/2025 5:23 PM CDT us Edwin Gupta MD LAB MICROBIOLOGY - GENERAL ORD ERABLES Final Result DYAN KELLY ([place]) 1 [facility] [place] [place] [address] * Erythrocyte sedimentation rate (03/02/2025 2:53 PM CDT) Erythrocyte sedimentation rate 12 1 - 30 mm/hr Blood 03/02/2025 2:53 PM CDT 03/02/2025 3:22 PM CDT us Edwin Gupta MD LAB BLOOD ORDERABLES Final Res ult DYAN KELLY ([place]) 1 [facility] [place] [place] [address] * (ABNORMAL) Rheumatoid factor (03/02/2025 2:53 PM CDT) Rheumatoid factor, quant 40(H) <=15 IUnits/mL Comment:Testing performed by : [address] [place]., [address] Blood 03/02/2025 2:53 PM CDT 03/02/2025 5:22 PM CDT us Edwin Gupta MD LAB BLOOD ORDERABLES Final Res ult Performing Organization Address City/[facility]/ZIP Co de Phone Number DYAN KELLY ([place]) 1 [place] [address] * CRP (acute phase) (03/02/2025 2:53 PM CDT) CRP <3.0 <=10.0 mg/L DYAN Gray ([place]) Blood 03/02/2025 2:53 PM CDT 03/02/2025 3:22 PM CDT us Edwin Gupta MD LAB BLOOD ORDERABLES Final Res ult Performing Organization Address [facility] Co de Phone Number DYAN KELLY ([place]) 1 [facility] [place] [employer] [place] [address] * (ABNORMAL) Uric acid (03/02/2025 2:53 PM CDT) Uric acid 7.5(H) 2.5 - 7.0 mg/dL DYAN ROBIN ([place]) Blood 03/02/2025 2:53 PM CDT 03/02/2025 3:22 PM CDT us Edwin Gupta MD LAB BLOOD ORDERABLES Final Res ult Performing Organization Address [facility] Co de Phone Number DYAN KELLY ([place]) 1 [facility] [place] [employer] [address] * (ABNORMAL) TSH (03/02/2025 2:53 PM CDT) Thyroid Stimulating Hormone 5.93(H) 0.30 - 4.20 mcIUnit/mL DYAN ROBIN ([place]) Blood 03/02/2025 2:53 PM CDT 03/02/2025 3:22 PM CDT us Edwin Gupta MD LAB BLOOD ORDERABLES Final Res ult DYAN KELLY ([place]) 1 [facility] [place] [address] * Phosphorus (03/02/2025 2:53 PM CDT) [facility] Phosphorus, pl 2.6 2.3 - 4.5 mg/dL [facility] ([place]) Blood 03/02/2025 2:53 PM CDT 03/02/2025 3:22 PM CDT Edwin Gupta MD LAB BLOOD ORDERABLES Final Res ult DYAN KELLY ([place]) 1 [place] [address] * Bilirubin, direct (03/02/2025 2:53 PM CDT) [facility] Bilirubin, direct 0.1 0.1 - 0.3 mg/dL [facility] ([place]) Blood 03/02/2025 2:53 PM CDT 03/02/2025 3:22 PM CDT Edwin Gupta MD LAB BLOOD ORDERABLES Final Res ult DYAN KELLY ([place]) 1 [place] [address] * (ABNORMAL) Comprehensive metabolic panel (03/02/2025 2:53 PM CDT) [facility] Sodium 139 135 - 145 mmol/L [facility] ([place]) Potassium, pl 4.4 3.3 - 4.9 mmol/L [facility] ([place]) Chloride 102 97 - 110 mmol/L [facility] ([place]) CO2 25 22 - 32 mmol/L [facility] ([place]) Anion gap 12 2 - 15 mmol/L [facility] ([place]) BUN 38(H) 6 - 25 mg/dL [facility] ([place]) Creatinine 1.59(H) 0.60 - 1.10 mg/dL [facility] ([place]) Glucose 201(H) 70 - 199 [...] MD LAB BLOOD ORDERABLES Final Res ult [facility] ([place]) 1 [facility] Department [place] [address] * (ABNORMAL) Urinalysis reflex to microscopic (03/02/2025 2:50 PM CDT) Color, ur Yellow Yellow Clarity, ur Clear Clear CERNER A ([place]) Specific gravity, ur 1.012 1.003 - [...] tendency for uric acid stone formation. Source: [facility] [employer] Current Interpretive Data was last revised on [...] Leukocyte esterase, ur Negative Negative [facility] ([place]) UA reflex comment Reflex conditions for microscopic UA not met. [facility] ([place]) Urine 03/02/2025 2:50 PM CDT 03/02/2025 3:30 PM CDT us Edwin Gupta MD LAB URINE ORDERABLES Final Res ult [facility] ([place]) 1 [facility] [place] [address] * Screening Mammogram Bilateral W Raul (01/15/2025 [...] F with given history of: Osteoporosis Screening. 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 MF: BREANNA Report ID: [id number] Reading Location: [address] Note Jerzy Velazquez MD - 11/03/2023 EXAM DESCRIPTION: DEXA AXIAL SKELETON BONE DENSITY 1 OR MORE SITES REASON FOR STUDY: 63 y/o year old F with given history of:Osteoporosis Screening. 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 MF: BREANNA Report ID: [id number] Reading Location: [place] [address] us Sharon Moya MD IMG DXA PROCEDURES Final Resu lt * (ABNORMAL) Hemoglobin A1c (10/12/2019 6:42 AM CDT) Hgb A1C 7.7(H) 4.0 - 5.6 % DYAN KELLY ([place]) Estimated Average Glucose 174 mg/dL DYAN KELLY ([place]) Comment: The ADA recommends reporting an estimated Average Glucose (eAG) with all Hemoglobin A1c results using the equation derived from a study of 507 normal and diabetic adults. Minority populations were underrepresented and children were not included. (Diabetes Care 31:0602-5820, 2008). The eAG is not equivalent to a fasting glucose. Blood specimen (specimen) 10/12/2019 6:42 AM CDT 10/13/2019 11:17 AM CDT us Kwaku Menezes MD LAB BLOOD ORDERABLES Final Resul t DYAN KELLY ([place]) 1 [facility] Department [place] [address] * (ABNORMAL) Lipid panel (11/20/2018 12:47 AM CDT) [facility] Signature Cholesterol 98 30 - 199 mg/dL [facility]AN [facility] ([place]) Comment: Interpretive Data Ages < or [...] 2018. Non-HDL Cholesterol 77 mg/dL DYAN KELLY ([place]) Comment: Interpretive Data Ages < or = [...] on 2018. Chol/HDL ratio 5 JUAN KELLY ([place]) Blood specimen (specimen) 11/20/2018 12:47 AM CDT 11/20/2018 12:49 AM CDT Narrative DYAN KELLY ([place]) - 11/20/2018 1:38 AM CDT This lipid panel was automatically ordered due to a Troponin-T. The dietary status of the patient at the collection time should be correlated with the lipid results. (Reflex test added by rule GL_MBC_CH_TROPT_LIPID; ag1) us Tony Patterson MD LAB BLOOD ORDERABLES Final R esult DYAN ROBIN ([place]) 1 [facility] Department [place] [address] from Last 3 Months or Most Recently Relevant to Health Maintenance Insurance DR [address] [place] [id number] [employer] [place] [employer] [place] [id number] [place] [employer] [address] [place], [place] [id number] [address] MEDICARE ADVANTAGE [address] [place] [address] MEDICARE ADVANTAGE IDPA Advance Directives For more information, please contact: [phone] * Full Code (Latest Code Status on [...] 11:50 AM 11/24/2018 10:15 PM Care Teams Exploration Engineer Relationship Specialty Start Date End Date Dominique Peck NP [address] [place] [address] [place] [address] PCP - General Nurse Practitioner 11/25/24 Wu Saleem MD [address] [place] [address] [place] [address] Manager Social Work Hematology and Oncology 08/22/24
--- OUTSIDE RECORDS SUMMARY | 2025-06-01 08:16 | XMS_ITS | Encounter Summary ---
Author Organization [facility] Address [address] [place] [address] Phone Care Team Providers Care Poultry Dressing Worker Name Role Phone Sharon Moya MD Primary Care Provider [phone] Chapito Garcia MD Unavailable Radha Mac DPM Unavailable [phone] Encounter Details Date Type Department Care Team (Late st Contact Info) Description 07/18/2024 Nursing Facility [facility] [address] [place] [phone] Fiorella Horn, SIGHT MOUNTER, CREWMAN ARMOURED PERSONNEL CARRIER [address] [place] [address] Social History Tobacco Use Types Packs/Day Years Used Date Smoking Tobacco: Former Cigarettes 1 12 Smokeless Tobacco: Never Alcohol Use Standard Drinks/Week Comments No 0 (1 standard drink = 0.6 oz pur e alcohol) [facility] Utilities Answer Date Recorded In the past 12 months has [employer], gas, oil, or water [employer] threatened to shut off services in your home? Patient declined 05/25/2024 Social Connection and Isolation Panel Answer Date Recorded In a typical week, how many times do you talk on the phone with family, friends, or neighbors? Patient declined 05/25/2024 How often do you get togethe r with friends or relatives? Patient declined 05/25/2024 How often do you attend episcopal or rastafari serv ices? Patient declined 05/25/2024 Do you [...] Score - Questions 1-9 0 0 03/2022 [facility] Occupat [facility] - Occupational Stress Questionnaire Answer [...] any time in the past 12 m [facility], were you homeless or living in a fdc (including now)? Patient declined 05/25/2024 Sexually Active [...] st Contact Info) Description 06/28/2025 9:00 AM MANAGER SIMULATION Office Visit [facility] - Endocrinology [facility] [address] [place] [phone] Chapito Garcia MD [address] [phone] documented as of this encounter Visit Diagnoses Not on filedocumented in this encounter Care Teams Poultry Dressing Worker Relationship Specialty Start Date End Date Sharon Moya MD [address] [place], [place] [id number] PCP - General Internal Medicine 09/16/21 Chapito Garcia MD [address] [phone] Consulting Physician Endocrinology 12/25/21 Radha Mac DPM [address] [phone] Consulting Physician Podiatry 05/26/22 documented as of this encounter
--- OUTSIDE RECORDS SUMMARY | 2025-06-01 08:16 | XMS_ITS | Encounter Summary ---
Author Organization [facility] Address [address] [place] [address] Phone Care Team Providers Care Brewery Representative Name Role Phone Anthony Burks MD Primary Care Provider [phone] Gayle Garcia RN Unavailable Unavailable Sharon Moya MD Primary Care Provider [phone] Chapito Garcia MD Unavailable Radha Mac DPM Unavailable [phone] Encounter Details Date Type Department Care Team (Late st Contact Info) Description 07/30/2021 Lab Requisition [facility] [address] [place] [address] Anthony Burks MD [address] [place] [id number] COVID-19 Social History Tobacco Use Types [...] COVID-19? No / Unsure 07/31/2021 11:08 AM BRAND EXECUTIVE documented as of this encounter Functional Status * Question Answer Date of Assessment Author Best Eye Response 4-->(E4) spontaneous 11:08 AM Gio Fernando RN Best Verbal Response 5-->(V5) oriented 11:08 AM Gio Fernando RN Best Motor Response 6-->(M6) obeys commands 07/13 11:08 AM Gio Fernando RN Preston Coma Scale Score 15 07/31/2021 11:08 AM Gio Fernando RN * Question Answer Date of Assessment Author Pain Description constant 07/31/2021 11:01 AM Tiffanie Suárez RN (0-10) Pain Rating: Activity 8 07/31/2021 1 1:01 AM Tiffanie Suárez RN (0-10) Pain Rating: Rest 8 07/31/2021 11:01 AM Tiffanie Suárez RN * Question Answer Date of Assessment Author SpO2 92 07/31/2021 12:15 PM BRAND EXECUTIVE Gio Johnson RN O2 Device None (Room air) 07/31/2021 10:59 AM BRAND EXECUTIVE Tiffanie Pereira RN * Question Answer Date of Assessment Author Height 69 07/31/2021 10:59 AM Tiffanie Cunningham ae, RN Weight 3312 07/31/2021 10:59 AM Tiffanie Cunningham ae, RN * Question Answer Date of Assessment Author BP 180/71 07/31/2021 12:15 PM BRAND EXECUTIVE Dominique Escalera RN * Fall Risk Indicators Answer Date of Assessment Author 2-->mobility deficit/weakness 07/31/2021 11:00 A M Tiffanie Suárez RN * Fall Risk Score Answer Date of Assessment Author 2 07/31/2021 11:00 AM Tiffanie Suárez RN * Question Answer Date of Assessment Author Chest Pain Character other (see comments) 2021 11:10 AM Gio Fernando RN (0-10) Chest Pain Severity Rating 8 07/31/2021 11:10 AM Gio Fernando RN Chest Pain Location anterior chest, left;anterior chest, right;upper back, left;upper back, right 07/31/2021 11:10 AM Gio Fernando RN Chest Pain Intervention cardiac monitori ng continued;court recording monitor placed 07/31/2021 11:10 AM Gio Fernando RN * Question Answer Date of Assessment Author Temp 97.2 07/31/2021 10:59 AM Tiffanie Cunningham ae, RN Pulse 75 07/31/2021 12:15 PM Gio Wang RN Resp 18 07/31/2021 10:59 AM Tiffanie Cunningham ae, RN documented as of this encounter Mental Status * Question Answer Entry Date Author Best Eye Response 4-->(E4) spontaneous 11:08 AM Gio Fernando RN Best Verbal Response 5-->(V5) oriented 11:08 AM Gio Fernando RN Best Motor Response 6-->(M6) obeys commands 07/13 11:08 AM Gio Fernando RN Preston Coma Scale Score 15 07/31/2021 11:08 AM Gio Fernando RN * Question Answer Entry Date Author Pain Description constant 07/31/2021 11:01 AM Tiffanie Suárez RN (0-10) Pain Rating: Activity 8 07/31/2021 1 1:01 AM Tiffanie Suárez RN (0-10) Pain Rating: Rest 8 07/31/2021 11:01 AM Tiffanie Suárez RN * Question Answer Entry Date Author SpO2 92 07/31/2021 12:15 PM Gio Wang RN O2 Device None (Room air) 07/31/2021 10:59 AM Tiffanie Morales RN * Question Answer Entry Date Author Weight 3312 07/31/2021 10:59 AM Tiffanie Cunningham ae, RN * Question Answer Entry Date Author BP 180/71 07/31/2021 12:15 PM Dominique Kasper RN * Fall Risk Indicators Answer Entry Date Author 2-->mobility deficit/weakness 07/31/2021 11:00 A M Tiffanie Suárez RN * Fall Risk Score Answer Entry Date Author 2 07/31/2021 11:00 AM Tiffanie Suárez RN * Question Answer Entry Date Author Chest Pain Character other (see comments) 2021 11:10 AM Gio Fernando RN (0-10) Chest Pain Severity Rating 8 07/31/2021 11:10 AM Gio Fernando RN Chest Pain Location anterior chest, left;anterior chest, right;upper back, left;upper back, right 07/31/2021 11:10 AM Gio Fernando RN Chest Pain Intervention cardiac monitori ng continued;court recording monitor placed 07/31/2021 11:10 AM Gio Fernando RN * Question Answer Entry Date Author Temp 97.2 07/31/2021 10:59 AM Tiffanie Cunningham ae, RN Pulse 75 07/31/2021 12:15 PM BRAND EXECUTIVE Gio Johnson RN documented in this encounter Plan of Treatment Upcoming Encounters Date Type Department Care Team (Late st Contact Info) Description 06/28/2025 9:00 AM BRAND EXECUTIVE Office Visit [facility] - End[facility]ology - [place] [address] [place] [address] Chapito Garcia MD [address] [phone] documented as of this encounter Procedures Procedure Name Priority Date/Time Associated Diagnosis Comments SARS-COV-2 BY MOLECULAR Routine 07/28/2021 4:00 PM BRAND EXECUTIVE COVID-19 documented in this encounter Results * SARS-COV-2 BY MOLECULAR (07/28/2021 4:00 PM BRAND EXECUTIVE) SARSCOV2 NOT DETECTED (Referen ce Range for this test is Not Detected ) [facility] THERMOF[facility] FAST DX 07/31/2021 1:24 PM BRAND EXECUTIVE [facility] Comment:This test was perfor med by a RT-PCR method. Other Non-Phlebotomy Collection / Unknown 07/28/2021 4:00 PM BRAND EXECUTIVE 07/30/2021 8:28 AM BRAND EXECUTIVE Narrative [facility] - 07/31/2021 1:24 PM BRAND EXECUTIVE Authorized Fact Sheets about this test for providers and patients are available at: https://www.fda.gov/medical-devices/mcxtgvwng-xpoyfsglwj-poccfyd-devices/emergen cy-us e-authorizations us Anthony Burks MD MICROBIOLOGY - GENERAL ORDERAB LES Final Result [facility] [address] [place] [address], documented in this encounter Visit Diagnoses Diagnosis COVID-19 documented in this encounter Additional Health Concerns Infection Onset Date Last Indicated Resolved Time COVID - 19 07/21/2021 07/28/2021 08/17/2021 12:1 6 AM BRAND EXECUTIVE COVID - 19 10/06/2021 10/06/2021 10/26/2021 12:1 6 AM CDT COVID - 19 06/27/2022 06/27/2022 07/07/2022 12:1 6 AM BRAND EXECUTIVE Respiratory Rule-Out 06/27/2022 06/27/2022 023 12:16 AM BRAND EXECUTIVE COVID - 19 04/12/2024 04/12/2024 04/12/2024 4:20 PM CDT COVID - 19 05/22/2024 05/22/2024 05/22/2024 1:03 PM BRAND EXECUTIVE documented as of this encounter Care Teams Brewery Representative Relationship Specialty Start Date End Date Anthony Burks MD [address] [facility] [address] [place] [address] PCP - General Internal Medicine 12/19/19 09/15/21 Sharon Moya MD [address] [place] [address] PCP - General Internal Medicine 09/16/21 Gayle Garcia, RN [place] Stiff Leg Operator 08/21/21 02/11/22 Chapito Garcia MD [address] [phone] Consulting Physician Endocrinology 12/25/21 Radha Mac DPM [address] [phone] Consulting Physician Podiatry 05/26/22 documented as of this encounter
--- OUTSIDE RECORDS SUMMARY | 2025-06-01 08:16 | XMS_ITS | Clinical Summary ---
Author Organization [facility] Address [address] [place] [address] Phone Care Team Providers Care Wire Frame Lampshade Maker Name Role Phone Sharon Moya MD Primary Care Provider [phone] Chapito Garcia MD Unavailable Radha Mac DPM Unavailable Allergies Active Allergy Reactions Criticality Noted Date [...] as directed. 9.9 mL 06/27/20 22 Active linaCLOtide (LINZESS) 72 MCG Capsule [The details of the medication are not available because there are pending changes by a home health clinician.] 30 Capsule 12/12/19 24 Active Additional Information Patient not taking.Informant: Other, Reported on 04/16/2025 alendronate (FOSAMAX) 70 MG Tablet Take 70 mg by mouth every 7 days. Active ondansetron (ZOFRAN-ODT) 4 MG TABLET DISPERSIBLE [The details of the medication are not available because there are pending changes by a home health clinician.] 10 Tablet 05/27/20 24 Active Additional Information Patient not taking.Informant: Self, Reported on 04/16/2025 OneTouch Delica Lancets 33G MiscIndications :Type 2 diabetes mellitus with diabetic polyneuropathy, with long-term current use of insulin 1 Lancet . by Does not apply route 4 times daily. Test blood glucose 3x daily. E11.42, insulin dependent 400 Lancet . 3 09/12/19 25 Active Insulin Pen Needle (Pen Ball) 32G X 4 MM Misc 1 Pen Needle by Does not apply route 4 times daily. Use to inject insulin 4x daily. 400 Each 3 09/12/19 25 Active primidone (MYSOLINE) 50 MG Tablet Take 50 mg by mouth every 6 hours. 11/22/19 25 Active insulin glargine (Lantus SoloStar) 100 UNIT/ML Solution Pen-injector [The details of the medication are not available because there are pending changes by a home health clinician.] 15 mL 1 12/28/19 25 Active Additional Information Patient not taking.Reason: Other, Reported on 04/16/2025 Glucose Blood (Accu-Chek Guide Test) Strip Test [...] insulin dependent 1 Kit 02/16/20 25 Active Restasis 0.05 % Emulsion Place 1 Drop in both eyes 2 times daily. Active benzonatate (TESSALON) 100 MG Capsule Take 100 mg by mouth 3 times daily as needed for Cough. 12/23/19 25 Active VITAMIN D, CHOLECALCIFEROL , PO Take 3,000 Int'l Units by mouth nightly. 03/10/20 18 Active Accu-Chek FastClix Lancets Misc 1 Lancet . by Does not apply [...] Every Wednesday, Wednesday, Wednesday. 01/03/20 25 Active senna (SENOKOT) 8.6 MG Tablet Take 1 Tablet by mouth nightly as needed. Active atorvastatin (LIPITOR) 20 MG Tablet Take 20 mg by mouth nightly. Active loratadine (CLARITIN) 10 MG Capsule Take [...] route 3 times daily (before meals). rx [id number] Active levothyroxine (SYNTHROID) 175 MCG Tablet Take 1 Tablet by mouth daily. 90 Tablet 1 03/29/20 25 Active citalopram (CELEXA) 20 MG Tablet [...] Encounters Date Type Department Care Team Description 05/21/2025 Refill [facility] [address] [place] [address] Boni Chavez, ELECTRICAL MANUFACTURING TECHNICIAN, TERRAZZO POLISHER HELPER Medication Refill 04/26/2025 Home Care Visit [address] [address] Margo Jefferson, RN SN - DISCHARGE SUMMARY 04/25/2025 2:00 PM CDT Home Care Visit [address] [address] Vi Conway, PT PT - OASIS DISCHARGE 04/25/2025 Home Care Visit [address] [address] Margo Jefferson, RN TELEPHONE ENCOUNTER 04/24/2025 Home Care Visit [address] [address] Nicolle Coates OT OT - DISCHARGE SUMMARY 04/23/2025 9:30 AM CDT Home Care Visit [address] [address] Karen Mcgarry, PARALEGAL ASSISTANT PT - HOME VISIT 04/19/2025 9:30 AM CDT Home Care Visit [address] [address] Karen Mcgarry, PARALEGAL ASSISTANT PT - HOME VISIT 04/18/2025 Telephone [facility] [address] [place] [phone] Ysabel Hawthorne RN Diabetes Mellitus 04/17/2025 10:00 AM CDT Home Care Visit [address] [address] Karen Mcgarry, PARALEGAL ASSISTANT PT - HOME VISIT 04/12/2025 2:00 PM CDT Home Care Visit [address] [address] Keyona Shen OTA OT - DISCIPLINE DISCHARGE 04/12/2025 Home Care Visit [address] [address] Keyona Shen OTA CASE COMMUNICATION 04/12/2025 Home Care Visit [address] [address] Margo Jefferson, RN TELEPHONE ENCOUNTER 04/11/2025 2:00 PM CDT Home Care Visit [address] [address] Alyson Crowder, PARALEGAL ASSISTANT PT - HOME VISIT 04/11/2025 1:30 PM CDT Home Care Visit [address] [address] Keyona Shen, KYLER OT - HOME VISIT 04/11/2025 Travel 04/09/2025 9:30 AM CDT Home Care Visit [address] [address] Vi Conway, PT PT - REASSESSMENT 04/06/2025 1:00 PM CDT Home Care Visit [address] [address] Nicolle Coates, OT OT - HOME VISIT 04/06/2025 9:30 AM CDT Home Care Visit [address] [address] Karen Mcgarry, PARALEGAL ASSISTANT PT - HOME VISIT 04/06/[address] [address] Carlene Sena, DWAYNE Symptom Management; Urinary Symptoms. 04/05/2025 1:45 PM CDT Home Care Visit [address] [address] Nicolle Coates, OT OT - CORREIA SUPERVISORY VISIT 04/05/[address] [address] Nicolle Coates, OT Medication Management 04/04/2025 9:30 AM CDT Home Care Visit [address] [address] Karen Mcgarry, PARALEGAL ASSISTANT PT - HOME VISIT 04/03/2025 10:00 AM CDT Home Care Visit [address] [address] Edel Shearer, ALTERATIONS TAILOR SN - DISCIPLINE DISCHARGE 04/03/2025 Home Care Visit [address] [address] Vi Conway, PT CARE CONFERENCE 03/30/2025 9:30 AM CDT Home Care Visit [address] [address] Karen Mcgarry PTA PT - HOME VISIT 03/29/2025 3:30 PM CDT Home Care Visit [address] [address] Keyona Shen OTA OT - HOME VISIT Discharge Disposition: Discharged to home or Selfcare 03/29/2025 9:45 AM CDT Office Visit [facility] - Endocrinology [facility] [address] [place] [address] Chapito Garcia MD Type 2 diabetes mellitus with diabetic polyneuropathy, with long-term current use of insulin (HCC) (Primary Dx); Insulin dose changed (HCC); Hypoglycemia; Overweight; Acquired hypothyroidism; Medication dose changed Discharge Disposition: Discharged to home or Selfcare 03/29/2025 Travel 03/28/2025 9:30 AM CDT Home Care Visit [address] [address] Karen Mcgarry PTA PT - HOME VISIT 03/27/2025 12:30 PM CDT Home Care Visit [address] [address] Nicolle Coates OT OT - INITIAL EVALUATION 03/27/2025 Home Care Visit [address] [address] Margo Jefferson RN TELEPHONE ENCOUNTER 03/26/2025 12:00 PM CDT Home Care Visit [address] [address] Lupe Shah, CASH OFFICE WORKER CASH OFFICE WORKER - INITIAL EVALUATION 03/26/2025 Telephone [facility] - Endocrinology - [place] [address] [place] [address] Chapito Garcia MD 03/25/2025 [facility] [address] [place] [address] Grace Barr RN Low Blood Sugar 03/25/2025 Telephone [facility] [address] [place] [phone] Azalia Viera RN Diabetes Mellitus (Remote Patient Monitoring program) 03/23/2025 8:00 AM CDT Home Care Visit [address] [address] Margo Jefferson RN SN - HOME HEALTH INITIAL EVALUATION 03/23/2025 Home Care Visit [address] [address] Minal Tran RN SN - WOUND/OSTOMY CONSULTATION 03/22/2025 9:30 AM CDT Home Care Visit [address] [address] Vi Conway, PT PT - OASIS START OF CARE 03/22/2025 [facility] [place] [address] [place] [address] Chapito Garcia MD Results 03/22/2025 Plan of Care Documentation [address] [address] 03/17/2025 5:20 PM CDT Telemedicine [facility] [address] [place] [phone] Primary hypertension (Primary Dx); Type 1 diabetes mellitus without complication Discharge Disposition: Discharged to home or Selfcare 03/17/2025 Travel 03/14/2025 [facility] [place] [address] [place] [address] Chapito Garcia MD Advice Only 03/11/2025 Telephone [facility] [address] [place] [phone] Alicja Avila, RN Social Concerns (Shower assistance) 03/09/2025 Patient Outreach [facility] [address] [place] [phone] Navigator, Digital Health Social Concerns 03/05/2025 Patient Outreach [facility] [address] [place] [phone] Navigator, Digital Health 03/03/2025 1:20 PM CDT Telemedicine [facility] [address] [place] [phone] Type 2 diabetes mellitus with diabetic polyneuropathy, with long-term current use of insulin (HCC) (Primary Dx); Primary hypertension Discharge Disposition: Discharged to home or Selfcare 03/03/2025 Patient Outreach [facility] [address] [place] [phone] Navigator, Digital Health Patient Outreach; Social Concerns 03/03/2025 [facility] [address] [phone] Yudelka Frances RN Patient Outreach 03/03/2025 Travel from Last 3 Months Immunizations Immunization Administration [...] Formulation 07/12/1999,07/12/1999 Pneumococcal conjugate PCV20 , polysaccharide [id number] conjugate, adjuvant, PF 09/22/2024 Sars-cov-2 (Covid-19) Vaccin [...] 0.6 oz pur e alcohol) [facility] Utilities Answer Date Recorded In the past 12 months has [employer], [employer], or water [employer] threatened to shut off services in your home? Patient declined 05/25/2024 Social Connection and Isolation Panel Answer Date Recorded In a typical week, how many times do you talk on the phone with family, friends, or neighbors? Patient declined 05/25/2024 How often do you get togethe r with friends or relatives? Patient declined 05/25/2024 How often do you attend amish or islam serv ices? Patient declined 05/25/2024 Do you belong to any clubs o r organizations such as amish groups, unions, fraternal or athletic groups, or [...] Score - Questions 1-9 0 /0 03/2022 [facility] - Occupational Stress Questionnaire Answer Date [...] any time in the past 12 m [facility], were you homeless or living in a mcc (including now)? Patient declined 05/25/2024 PRAPARE - [...] Sign Reading Time Taken Comments Blood Pressure 138/78 04/25/2025 2:41 PM CDT Pulse 68 04/25/2025 2:41 PM CDT Temperature 36.8 C (98.2 F) 04/25/2025 2:41 PM CDT Respiratory Rate 18 04/25/2025 2:41 PM CDT Oxygen Saturation 96% 04/25/2025 2:41 PM CDT Inhaled Oxygen Concentration - - Weight 88 kg (194 lb) 04/25/2025 2:41 PM CDT Height 175.3 cm (5' 9) 03/27/2025 11:58 AM CDT Body Mass Index 28.65 03/27/2025 11:58 AM CDT Plan of Treatment Upcoming Encounters Date Type Department Care Team (Late st Contact Info) Description 06/28/2025 9:00 AM HOME CARE MUSIC THERAPIST [facility] - [place] [address] [place] [address] Chapito Garcia MD [address] [phone] Health Maintenance Due Date Last Done Comments Hepatitis C Virus (HCV) Screening 1959 Varicella Immunization (1 of 2 - 13+ 2-dose series) 1972 Medicare Initial AWV [id number] 12/10/2001 Cologuard 2004 Colonoscopy 2004 Colorectal Cancer Screening 2004 Immunochemical Fecal Occult Blood 2004 Respiratory Syncytial Virus (RSV) Immunization (Adult) (1 - Risk 50-74 years 1-dose series) 2009 Hepatitis B Immunization (2 of 2 - CpG 2-dose series) 05/21/2020 04/23/2020 Influenza Immunization (#1) 2025 1011/2023, 06/25/2023, 03/06/2022, Additional history exists SARS-COV-2 Immunization (2024- season) 2025 10/12/2024, 10/25/2023, 10/30/2022, Additional history exists Diabetes: Eye Exam 08/14/2025 08/14/2024, 0 01/31/2024, 01/31/2024 Diabetes: Hemoglobin A1c 09/26/2025 025, 12/21/2024, 09/11/2024, Additional history exists DEXA Bone Density 11/02/2025 11/03/2023 Diabetes: Foot Exam 12/21/2025 12/21/2024 Mammogram 01/15/2026 01/15/2025, 0507/2023, 09/28/2022, Additional history exists Diabetes: Nephropathy Screening [...] Recommended Domains Addressed Status Status Reason/Outcome Date/Time [facility] Transit - [employer] Transportation Transportation Needs Recommended 03/13/2025 1:32 PM CDT from Last 12 Months Procedures Procedure Name Priority Date/Time Associated Diagnosis Comments POCT GLYCOSYLATED HEMOGLOBIN Routine 03/29/2025 9:30 AM CDT Type 2 diabetes mellitus with diabetic polyneuropathy, with long-term current use of insulin (HCC) CMP (COMPREHENSIVE METABOLIC PANEL) STAT 02/15/2025 4:59 AM CDT HM DILATED EYE EXAM 01/31/2024 1 2:00 AM CDT from Last 3 Months or Most Recently Relevant to Health Maintenance Results * (ABNORMAL) POCT GLYCOSYLATED HEMOGLOBIN (03/29/2025 9:30 AM CDT) HGB-A1C 8.3(A) 4 - 6 % Blood 03/29/2025 9:30 AM CDT us Chapito Garcia MD POINT OF CARE TESTING (MANUAL) F inal Result * (ABNORMAL) CMP (02/15/2025 4:59 AM CDT) SODIUM 141 136 - 145 mmol/L 02/15/2025 5:37 AM CDT [facility] POTASSIUM 4.6 3.5 - 5.1 mmol/L 02/15/2025 5:37 AM CDT [facility] CHLORIDE 106 98 - 107 mmol/L 02/15/2025 5:37 AM CDT [facility] CO2, VENOUS 26 22 - 30 mmol/L 02/15/2025 5:37 AM CDT [facility] ANION GAP 13.6 <18.0 mmol/L 02/15/2025 5:37 AM CDT [facility] GLUCOSE 240(H) 70 - 99 mg/dL 02/15/2025 5:37 AM T [facility] BUN 43(H) 10 - 20 mg/dL 02/15/2025 5:37 AM [facility] CREATININE, BLOOD 1.68(H) 0.60 - 1.00 mg/dL 02/15/2025 5:37 AM [facility] BUN/CREATININE RATIO 26(H) 12 - 20 ratio 02/15/2025 5:37 AM T [facility] TOTAL PROTEIN 6.6 6.0 - 8.0 g/dL 02/15/2025 5:37 AM T [facility] ALBUMIN 3.9 3.5 - 5.0 g/dL 02/15/2025 5:37 AM [facility] A/G RATIO 1.4 1.0 - 2.2 02/15/2025 5:37 AM T [facility] CALCIUM 9.1 8.7 - 10.5 mg/dL 02/15/2025 5:37 AM T [facility] T BILI 0.3 0.2 - 1.2 mg/dL 02/15/2025 5:37 AM [facility] SGOT (AST) 18 <43 U/L 02/15/2025 5:37 AM [facility] SGPT (ALT) 12 <56 U/L 02/15/2025 5:37 AM [facility] ALKALINE PHOSPHATASE 47 40 - 150 U/L 02/15/2025 5:37 AM [facility] GFR, ESTIMATED 34(L) >=60 02/15/2025 5:37 AM [facility] Comment: Creatinine Clearance is the preferred criteria for selecting drug dose adjustments in renally impaired patients. The GFR is provided as additional pertinent clinical information. GFR is reported in mL/min/1.73 sq m. Calculation based on the Chronic Kidney Disease Epidemiology Collaboration (CKD- EPI) equation refit without adjustment for race. GFR, EST. 37(L) >=60 025 5:37 AM CDT [facility] GFR, EST. NONAFRICAN 31(L) >=60 02/15/2025 5:37 AM CDT [facility] Blood Venipuncture / Unknown 02/15/2025 4:59 AM CDT 02/15/2025 5:05 AM CDT us Antoine Akbar MD CHEMISTRY ORDERABLES Poly l Result Performing Organization Address [facility] Co de Phone Number [facility] [address] [place] [address] * DILATED EYE EXAM (01/31/2024 12:00 AM CDT) 01/31/2024 us Provider Scan PROCEDURE/MINOR SURGICAL ORDERAB LES Final Result Performing Organization Address City/[facility] Co de Phone Number SCAN from Last 3 Months or Most Recently Relevant to Health Maintenance Insurance [address] [address] MEDICAID [place] MEDICARE C [employer] Advance Directives [...] 8:13 AM 07/31/2021 10:47 AM Care Teams Wire Frame Lampshade Maker Relationship Specialty Start Date End Date Sharon Moya MD [address] [place] [address] PCP - General Internal Medicine 09/16/21 Chapito Garcia MD [address] [phone] Consulting Physician Endocrinology 12/25/21 Radha aMc DPM #[address] [phone] Consulting Physician Podiatry 05/26/22
--- OUTSIDE RECORDS SUMMARY | 2025-06-01 08:18 | XMS_ITS | Clinical Summary ---
Author Organization [facility] [employer] Address [address] [place] [address] Care Team Providers Care Survey Coordinator Name Role Phone Sharon Moya MD Primary Care Provider [phone] Source Comments [facility] [employer],non-owned Affiliates and Associated Physician Practices is amultiple site organization consisting of ambulatory clinics and hospital sitesin [place], [place], [place] and [place]. This disclosure is being madepursuant to the Care Everywhere program and may not contain all information available regarding this patient. Last updated 18.[facility] [employer] Allergies Active Allergy Reactions Criticality Noted Date [...] fluticasone propionate (Flonase) 50 MCG/ACT nasal spray [place] 2 (two) sprays into each nostril once daily 08/15/19 24 Active Trelegy Ellipta 100-62.5-25 MCG/ACT Inhale 1 (one) puff by mouth once daily 09/07/19 24 Active OneTouch Verio test strip 4 TIMES A DAY Activ e hydrOXYzine HCl (Atarax) 25 MG tablet 1 tablet as needed Orally at night for 30 days Active BD Pen Needle Akanksha 2nd Gen 32G X 4 MM [facility] USE 1 PEN NEEDLE TO INJECT INSULIN [...] Normal pressure hydrocephalus 05/23/2024 Hydrocephalus managed with GRINDING WHEEL OPERATOR shunt 05/23/2024 Overview (05/23/2024): Inserted 2014 Essential hypertension 05/23/2024 Bipolar 1 disorder 05/23/2024 Seizures 05/23/2024 Insomnia 05/23/2024 Chronic obstructive pulmonar y disease with acute lower respiratory infection 05/23/2024 Asthma 05/23/2024 Anxiety 05/23/2024 Sleep apnea 05/23/2024 BMI 30.0-30.9,adult 05/23/2024 Osteoporosis 05/23/2024 Vitamin D deficiency 05/23/2024 Leukocytosis 05/23/2024 Social History Tobacco Use Types Packs/Day Years [...] on file Legal Sex Female 9:33 AM AGING DEPARTMENT SUPERVISOR Gender Identity Not on file Sexual Orientation Not on file Last Filed Vital Signs Vital Sign Reading Time Taken Comments Blood Pressure 132/61 05/25/2024 9:05 PM AGING DEPARTMENT SUPERVISOR Pulse 78 05/25/2024 9:05 PM AGING DEPARTMENT SUPERVISOR Temperature 36.6 C (97.9 F) 05/25/2024 7:47 AM AGING DEPARTMENT SUPERVISOR Respiratory Rate 16 05/25/2024 9:05 PM AGING DEPARTMENT SUPERVISOR Oxygen Saturation 96% 05/25/2024 9:05 PM AGING DEPARTMENT SUPERVISOR Inhaled Oxygen Concentration - - Weight 93.4 kg (206 lb) 05/22/2024 9:15 PM AGING DEPARTMENT SUPERVISOR Height 175.3 cm (5' 9) 05/22/2024 9:15 PM AGING DEPARTMENT SUPERVISOR Body Mass Index 30.42 05/22/2024 9:15 PM AGING DEPARTMENT SUPERVISOR Plan of Treatment Health Maintenance Due Date Last Done Comments COLOGUARD (AGES 45-75) - COLON CA SCREENING 1959 COLON MONITORING 1959 COLONOSCOPY - COLON CA SCREENING 1959 CT COLONOGRAPHY - COLON CA SCREENING 1959 Colorectal Cancer Screening 1959 FIT - COLON CA SCREENING 1959 FLEX SIG - COLON CA SCREENING 1959 HEPATITIS C SCREENING 02/24/1977 DTAP/TDAP/TD VACCINES (1 - Tdap) 1978 PNEUMOCOCCAL VACCINE 50+ (1 of 2 - PCV) 1978 Respiratory Syncytial Virus (RSV) Vaccine Pt: or over 60 yrs (1 - Risk 50-74 years 1-dose series) 2009 ZOSTER VACCINE (1 of 2) 2009 DIABETES-FOOT EXAM WITH MONOFILAMENT 05/23/2024 DIABETES - URINE PROTEIN SCREENING 07/12/2024 MEDICARE AWV CALENDAR YEAR 2024 DIABETES-HGB A1C 11/20/2024 05/23/2024 COVID-19 VACCINE ( season) 2025 10/25/2023, 10/30/2022, 09/09/2022, Additional history exists INFLUENZA VACCINE (#1) 2025 , 06/25/2023, 03/06/2022, Additional history exists DIABETES-SERUM CREATININE 05/25/20252023, 05/24/2024, 05/23/2024, Additional history exists DIABETES RETINOPATHY SCREENING 08/14/2026 08/14/2024 MAMMOGRAM 01/15/2027 01/15/2025, 07/0 01/2025, 12/10/2023, Additional history exists BONE DENSITY TESTING Completed 11/03/2023 HEPATITIS B [...] FUNCTION PANEL AM Draw 05/25/2024 5:50 AM AGING DEPARTMENT SUPERVISOR Weakness generalized Fever, unspecified fever cause Urinary tract infection without hematuria, site unspecified HEMOGLOBIN A1C DESMOND 05/23/2024 7:12 AM AGING DEPARTMENT SUPERVISOR from Last 3 Months or Most Recently Relevant to Health Maintenance Results * EYE EXAM (08/14/2024) Anatomical Region Laterality Modality Other 08/14/2024 Narrative 08/14/2024 Ordered by an unspecified provider. us Scanned Document SCANNING ONLY Final Result * (ABNORMAL) RENAL FUNCTION PANEL (05/25/2024 5:50 AM [facility]) BUN 37(H) 7 - 26 mg/dL 05/25/2024 7:00 AM [facility] Creatinine 1.58(H) 0.56 - 0.96 mg/dL 05/25/2024 7:00 AM [facility] Sodium 139 136 - 145 mmol/L 05/25/2024 7:00 AM [facility] Potassium 4.3 3.5 - 4.5 mmol/L 05/25/2024 7:00 AM [facility] Chloride 104 98 - 107 mmol/L 05/25/2024 7:00 AM [facility] CO2 25 22 - 29 mmol/L 05/25/2024 7:00 AM [facility] Glucose 292(H) 70 - 99 mg/dL 05/25/2024 7:00 AM [facility] Albumin 2.3(L) 3.4 - 5.0 g/dL 05/25/2024 7:00 AM [facility] Calcium 8.9 8.4 - 10.2 mg/dL 05/25/2024 7:00 AM [facility] Phosphorus 4.2 2.9 - 5.1 mg/dL 05/25/2024 7:00 AM [facility] Anion Gap 10 6 - 16 05/25/2024 7:00 AM [facility] BUN/Creatinine Ratio 23 7 - 23 05/25/2024 7:00 AM [facility] Osmolality Calculated 307(H) 275 - 295 mOsm/kg 05/25/2024 7:00 AM [facility] eGFR by CKD-EPI 36(L) >=90 mL/min/1.7 3 m2 05/25/2024 7:00 AM [facility] Blood BLOOD SPECIMEN / Unknown Lab Venipuncture / Unknown 05/25/2024 5:50 AM AGING DEPARTMENT SUPERVISOR 05/25/2024 6:32 AM AGING DEPARTMENT SUPERVISOR Earnest Grubbs EXTRUSION DIE TEMPLATE MAKER-FOOD MIXER ASSEMBLER LAB - CHEMISTRY ORDERABL ES Final Result [facility] [address] [place] [address], [facility] [phone] * (ABNORMAL) HEMOGLOBIN A1C (05/23/2024 7:12 AM AGING DEPARTMENT SUPERVISOR) Hemoglobin A1c 7.6(H) <=5.6 % 05/23/2024 12:38 PM [facility] Estimated Average Glucose 171 mg/dL 05/23/2024 12:38 PM [facility] Comment: HbA1c Interpretation: Normal : < 5.7% Pre-diabetes: 5.7-6.4% Diabetes: Equal to or greater than 6.5% Test results diagnostic of diabetes should be repeated for confirmation. Treatment target values recommended by ADA and other clinical organizations should be used to evaluate metabolic control in patients. Reference: [place] [employer], Standards of Care in Diabetes -2020 In patients 70 years and older consider HbA1c target range of 7.0-7.5% (Reference: Lawrence Gray et al. JAMDA. 2012) The Sebia assay for the measurement of HbA1c is a National Glycohemoglobin Standardization Program (NGSP) certified method. Blood BLOOD SPECIMEN / Unknown Venipuncture / Unknown 05/23/2024 7:12 AM AGING DEPARTMENT SUPERVISOR 05/23/2024 8:05 AM AGING DEPARTMENT SUPERVISOR Gabino Perez MD LAB - CHEMISTRY ORDERABLES Fin al Result [facility] [address] [place] [address], [place] [phone] from Last 3 Months or Most Recently Relevant to Health Maintenance Insurance DR [address] [place] [address] MEDICARE MEDICAID - OUT OF STATE [address] [place] [address] MEDICARE [employer] MANAGED MEDICARE ADV Advance Directives * Full Code (Latest Code Status on File) Date Activated Date Inactivated Comments 05/23/2024 10:57 AM 05/25/2024 10:23 PM Care Teams Survey Coordinator Relationship Specialty Start Date End Date Sharon Moya MD [address] [place] [address] PCP - General Internal Medicine 08/05/23
--- OUTSIDE RECORDS SUMMARY | 2025-06-01 08:18 | XMS_ITS | Encounter Summary ---
Author Organization [facility] Healthcare Address [address] [place] [address] Care Team Providers Care Advanced Practice Professional Name Role Phone Stuart Douglas MD Unavailable [phone] Wu Saleem MD Unavailable [phone] Dominique Peck NP Primary Care Provider Encounter Details Date Type Department Care Team (Late st Contact Info) Description 05/09/2025 Telephone [facility] Patient Access [address] [facility] [place] [address] Edwin Gupta MD [address] [place] [id number] Social History Tobacco Use Types Packs/Day Years [...] often do you attend chur ch or gnosticism services? 1 to 4 times per year 12/26/2020 Do you belong to any clubs o r organizations such as confucianism groups, unions, fraternal or athletic groups, or [...] on file Legal Sex Female 12:39 AM ORACLE FUSION CONSULTANT Gender Identity Not on file Sexual Orientation Not on file documented as of this encounter Functional Status documented as of this encounter Miscellaneous Notes * Telephone Encounter - Korin Srivastava - 05/09/2025 2:33 PM CDT [facility] Denied Remicade Denial Reasons: Clinical Notes did not show use of Methotrexate or a reason why it cannot be used. The dose is higher than the maximum dose allowed by the health plan. documented in this encounter Plan of Treatment Not on file documented as of this encounter Visit Diagnoses Not on filedocumented in this encounter Care Teams Advanced Practice Professional Relationship Specialty Start Date End Date Peck, Dominique Traci, HOSPITAL CLEANING SPECIALIST [address] [place] [address] [place] [address] PCP - General Nurse Practitioner 11/25/24 Stuart Douglas MD Surgeon Orthopedic Surgery 11/24/18 05/10/25 Wu Saleem MD [address] [place] [address] [place] [address] [facility] 08/22/24 documented as of this encounter
--- OUTSIDE RECORDS SUMMARY | 2025-06-01 08:18 | XMS_ITS | Encounter Summary ---
Author Organization [facility] Address [address] [place] [address] Phone Care Team Providers Care Diesel Fitter Mechanic Name Role Phone Sharon Moya MD Primary Care Provider [phone] Chapito Garcia MD Unavailable Radha Mac DPM Unavailable [phone] Reason for Visit * Reason Comments Medication Refill Encounter Details Date Type Department Care Team (Late st Contact Info) Description 05/21/2025 Refill [facility] [address] [place] [address] Boni Chavez, ENGRAVING SUPERVISOR, UTILITY SERVICE WORKER [address] [place] [address] Medication Refill Social History Tobacco Use Types Packs/Day Years Used Date Smoking Tobacco: Former Cigarettes 1 12 Smokeless Tobacco: Never Alcohol Use Standard Drinks/Week Comments No 0 (1 standard drink = 0.6 oz pur e alcohol) [facility] Utilities Answer Date Recorded In the past 12 months has [employer], gas, oil, or water company threatened [...] declined 05/25/2024 How often do you attend mandaen or religion serv ices? Patient declined 05/25/2024 Do you belong to any clubs o r organizations such as mandaen groups, unions, fraternal or athletic groups, or [...] Score - Questions 1-9 0 /0 03/2022 [facility] - Occupational [...] care home (including now)? Patient declined 05/25/2024 PRAPARE [...] Telephone Encounter - Jenae Ocasio, RN - 05/21/2025 11:47 AM CST Refill denied - See Refusal reason ANICAL ASSEMBLER documented in this encounter Plan of Treatment Upcoming Encounters Date Type Department Care Team (Late st Contact Info) Description 06/28/2025 9:00 AM MECHANICAL ASSEMBLER Office Visit [facility] - Endocrinology - [place] [address] [place] [id number] Chapito Garcia MD [address] [id number] documented as of this encounter Visit Diagnoses Not on filedocumented in this encounter Care Teams Diesel Fitter Mechanic Relationship Specialty Start Date End Date Sharon Moya MD [address] [place] [address] PCP - General Internal Medicine 09/16/21 Chapito Garcia MD [address] [id number] Consulting Physician Endocrinology 12/25/21 Radha Mac DPM [address] [phone] Consulting Physician Podiatry 05/26/22 documented as of this encounter
[2025-06-01 08:19] VITALS: PULSE 80; RESP 16; TEMP 36.3; O2SAT 97
[2025-06-01 08:35] VITALS: BP 140/75
== END 2025-06-01 09:12 | disposition home or self-care (01) ==
PROVIDERS: Emergency Provider Nurse Practitioner; PCP Nurse Practitioner Family
DX: J06.9 Acute upper respiratory infection, unspecified (principal); I12.0 Hypertensive chronic kidney disease with stage 5 chronic kidney disease or end stage renal disease; E11.22 Type 2 diabetes mellitus with diabetic chronic kidney disease; N18.5 Chronic kidney disease, stage 5; Z79.4 Long term (current) use of insulin; E03.9 Hypothyroidism, unspecified; J44.9 Chronic obstructive pulmonary disease, unspecified; G40.909 Epilepsy, unspecified, not intractable, without status epilepticus; F31.9 Bipolar disorder, unspecified; F41.9 Anxiety disorder, unspecified; Z98.2 Presence of cerebrospinal fluid drainage device; Z96.651 Presence of right artificial knee joint; Z87.891 Personal history of nicotine dependence
CPT/HCPCS: 99213; G0463